=== PATIENT | male | born 1950 | race Caucasian/White ===

== ENCOUNTER → 2016-08-26 | Outpatient (CLI) | payer BC ==
[~2016-08-26] MED LIST: ATOR-22 PO; FINA5TAB PO; METO100T44 PO; MULT-599 PO
[2016-08-26 12:33] LABS: BASO % 0.8 %; BASO ABS # 0.06 K/uL (0-0.2); COMPLETE YES; EOS % 2.6 %; IG% 0.1 %; LYMPH ABS # 1.75 K/uL (1.2-3.4); MEAN CELL VOLUME 97.6 fL (80-100); MEAN CORPUSCULAR HEMOGLOBIN 33.2 pg (25-34); MEAN PLATELET VOLUME 11.4 fL (7.4-10.4); MONO % 7.8 %; NEUT % 65.7 %; PLATELET COUNT 172 K/uL (130-400); RED BLOOD COUNT 5.33 M/uL (4.7-6.1)
[2016-08-26 15:05] LABS: ALB/GLOB RATIO 1.4 (0.9-2); ALKALINE PHOSPHATASE 91 U/L (45-117); ALT/SGPT 29 U/L (12-78); AST/SGOT 15 U/L (15-37); BLOOD UREA NITROGEN 20 mg/dl (7-18); BUN/CREATININE RATIO 16.8 (10-20); CALCIUM 9.1 mg/dl (8.5-10.1); CARBON DIOXIDE 27 mmol/L (21-32); CHLORIDE 109 mmol/L (98-107); GLUCOSE 105 mg/dl (70-99); HDL CHOLESTEROL 50 mg/dl; POTASSIUM 4.4 mmol/L (3.5-5.1); SODIUM 143 mmol/L (136-145)
[2016-08-26 15:06] LABS: CHOLESTEROL 121 mg/dl (0-200); CHOLESTEROL/HDL RATIO 2.4; LDL CHOLESTEROL CALCULATED 57 mg/dl; TRIGLYCERIDES 69 mg/dl (0-150); VERY LOW DENSITY LIPOPROT CALC 14 mg/dl
== END | disposition home or self-care (01) ==
LOC: C.LABPBG 09:05
PROVIDERS: ATTEND Nurse Practitioner Family
DX: I25.10 Atherosclerotic heart disease of native coronary artery without angina pectoris (principal); E78.00 Pure hypercholesterolemia, unspecified; I10 Essential (primary) hypertension

== ENCOUNTER → 2017-02-28 | Outpatient (CLI) | payer BC ==
[~2017-02-28] MED LIST changes: -METO100T44 PO; +METO1TAB69 PO
[2017-02-28 13:22] LABS: CHOLESTEROL/HDL RATIO 2.4
[2017-02-28 13:24] LABS: ALT/SGPT 33 U/L (12-78); AST/SGOT 19 U/L (15-37)
== END | disposition home or self-care (01) ==
LOC: C.LABPBG 08:25
PROVIDERS: ATTEND Internal Medicine Cardiovascular Disease
DX: E78.00 Pure hypercholesterolemia, unspecified (principal)

== ENCOUNTER → 2017-09-02 | Outpatient (CLI) | payer BC ==
[~2017-09-02] MED LIST changes: +METO100T44 PO; -METO1TAB69 PO
[2017-09-02 14:07] LABS: ALBUMIN 3.6 gm/dl (3.4-5.0); ALT/SGPT 33 U/L (12-78); AST/SGOT 18 U/L (15-37); BLOOD UREA NITROGEN 17 mg/dl (7-18); CARBON DIOXIDE 30 mmol/L (21-32); CHOLESTEROL 118 mg/dl (0-200); CREATININE 1.15 mg/dl (0.60-1.40); GLUCOSE 111 mg/dl (70-99); POTASSIUM 4.4 mmol/L (3.5-5.1); SODIUM 138 mmol/L (136-145)
[2017-09-02 14:10] LABS: ALKALINE PHOSPHATASE 119 U/L (45-117); LDL CHOLESTEROL CALCULATED 74 mg/dl; TOTAL PROTEIN 7.4 gm/dl (6.4-8.2)
== END | disposition home or self-care (01) ==
LOC: C.LABPBG 08:09
PROVIDERS: ATTEND Internal Medicine Cardiovascular Disease
DX: E78.00 Pure hypercholesterolemia, unspecified (principal); I10 Essential (primary) hypertension; I25.10 Atherosclerotic heart disease of native coronary artery without angina pectoris

== ENCOUNTER 2019-12-03 00:39 | Inpatient (IN) ==
[2019-12-03] MEDS ORDERED: fentaNYL citrate 100 MCG/2 ML VIAL IV PRN (00:48)
[2019-12-03] MEDS ORDERED: TICAGRELOR 90 MG TAB PO ONE (00:48)
--- NOTE | 2019-12-03 00:52 | Emergency Department Note ---
History of Present Illness General Chief complaint: Chest Pain Stated complaint: Chest Pain Source: patient Mode of arrival: EMS Limitations: no limitations History of Present Illness Provider complaint: chest pain Onset (ago): hour(s) (1.5) Location: chest Radiation: extremity Severity: moderate Pain Consistency: + constant Quality: + constant Relieved By: + none Associated symptoms: + diaphoresis, + loss of appetite and + nausea/vomiting Treatments prior to arrival: aspirin and other (nitro spray x3) This is a 69-year-old male who presents from home via EMS due to complaints of chest pain. Patient states pain began in the center of his chest and radiated into his left arm. Patient states this began approximately an hour and a half ago while he was watching TV and getting ready for bed. Patient states he felt fine earlier in the day. Patient denies any recent illness or known sick contacts. Patient denies any accompanying chest pain. States he did break out in a sweat, and was slightly nauseated but did not vomit. Patient states pain feels similar to approximately 18 years ago when he had a heart attack. Patient states at that time one stent was placed. Patient states he follows with Dr. Connolly. Patient states there is been no recent change in his medications. He does use aspirin, no Plavix. Patient denies any change in bowel or bladder function. EMS did call in route to discuss very slight abnormalities that were noted on EKG given his concerning story. These were not enough to warrant a prehospital Heart Alert. A repeat EKG was done immediately on arrival and showed worsening changes compared to the prehospital EKG, and at that time a heart alert was activated. Patient had received aspirin as well as 3 sprays of nitro prehospital. He maintained stable vital signs. Pt seen during a time of high acuity and national emergency pandemic while wearing PPE. Home Medications Home Medications Medication Instructions Recorded Confirmed Type multivitamin 1 tab PO DAILY 11/03/18 12/03/19 History aspirin 81 mg tablet 81 mg PO DAILY tab 02/23/19 12/03/19 History metoprolol succinate 100 mg 100 mg PO BID #180 tab 03/17/19 12/03/19 Rx tablet,extended release 24 hr atorvastatin 20 mg tablet 20 mg PO DAILY #90 tab 04/15/19 12/03/19 Rx Allergies Allergy/AdvReac Type Severity Reaction Status Date / Time No Known Allergies Allergy Unverified 12/03/19 01:00 Past Med/Surg History Medical History (Updated 12/03/19 @ 04:56 by Ara Isaac DO) Benign prostatic hyperplasia with urinary obstruction (Chronic) Bladder calculi (Chronic) BPH (benign prostatic hypertrophy) (Chronic) CAD (coronary artery disease) (Chronic) HTN (hypertension) (Chronic) Hypercholesterolemia (Chronic) UTI (urinary tract infection) (Resolved) Surgical History (Updated 11/10/18 @ 09:59 by JIMENA Browning III) History of hernia repair Family History (Updated 11/03/18 @ 09:06 by Darin Borges) Denies family history of Ovarian cancer Prostate cancer Myocardial infarction Breast cancer Colorectal cancer Social History (Updated 11/10/18 @ 09:55 by Amanda Bobo) Smoking Status: Current every day smoker Tobacco Type: Cigars Do You Dip or Chew Tobacco: No; Tobacco Cessation Education Requested by Patient: No Hx Alcohol Use: Yes Alcohol type: beer, wine and hard liquor Hx Substance Use: No Preferred Language: Serbian Communication Ability: Effective Beliefs That Will Affect Care: None marital status: Current Living Situation: Spouse current occupational status: employed and retired current occupation: [employer] Other Information That Helps Us Care for You: No Feels Safe at Home: Yes Safety Concerns: Feels Safe At This Time Dental Care, Regularly: No Physical Activity Frequency: Does not Exercise Review of Systems See HPI for pertinent positives & negatives. and A total of 10 systems reviewed and were otherwise negative Physical Exam Vital Signs Vital Signs - 24 hr 12/03/19 00:40 12/03/19 00:44 12/03/19 00:48 Temperature 36.6 C Temperature Source Oral Pulse Rate 66 65 Pulse Rate from SpO2 Sensor 68 Pulse Rhythm Regular Pulse Strength Normal Respiratory Rate 25 H Respiratory Effort / Characteristics Non-Labored Respiratory Depth Normal Respiratory Pattern Regular Blood Pressure 143/87 H 143/87 H Blood Pressure Mean 105 104 Pulse Oximetry 92 91 90 Oxygen Delivery Method Room Air Room Air Oxygen Flow Rate Sepsis Recent Fever Within 48 Hours No Sepsis New/Unexplained Change in Mental Status N/A Sepsis Action Taken by Nursing No Action Required 12/03/19 00:58 12/03/19 01:00 12/03/19 01:12 Temperature Temperature Source Pulse Rate 74 69 Pulse Rate from SpO2 Sensor 74 68 Pulse Rhythm Pulse Strength Respiratory Rate Respiratory Effort / Characteristics Respiratory Depth Respiratory Pattern Blood Pressure 154/90 H 152/86 H Blood Pressure Mean 117 118 Pulse Oximetry 92 89 L Oxygen Delivery Method Nasal Cannula Nasal Cannula Room Air Oxygen Flow Rate 5 5 Sepsis Recent Fever Within 48 Hours Sepsis New/Unexplained Change in Mental Status Sepsis Action Taken by Nursing GENERAL: alert, well appearing, well nourished, no distress, non-toxic, diaphoretic EYE EXAM: normal conjunctiva, PERRL and EOM's grossly intact OROPHARYNX: no exudate, no erythema, lips, buccal mucosa, and tongue normal and mucous membranes are moist NECK: supple, no nuchal rigidity, no adenopathy, non-tender LUNGS: Clear to auscultation. Normal chest wall mechanics, no w/r/r HEART: no murmurs, S1 normal and S2 normal ABDOMEN: abdomen soft, non-tender, normo-active bowel sounds, no masses, no rebound or guarding. BACK: Back is symmetrical on inspection and there is no deformity, no midline tenderness, no CVA tenderness. SKIN: no rashes and no bruising, no petechiae UPPER EXTREMITIES: upper extremities are grossly normal. FROM, nml pulses b/l. No edema, no evidence of trauma. LOWER EXTREMITIES: No pitting edema. FROM, nml pulses b/l. NEURO EXAM: Normal sensorium, cranial nerves II-XII grossly intact, normal speech, no gross weakness of arms, no gross weakness of legs. Gross sensation intact. Course Course 0043: EKG now with clear STEMI - heart alert activated. 0057: Pt still having pain after fentanyl. Will add nitro drip. 0105: Dr. Mendenhall at bedside. Administered Medications Discontinued Medications Fentanyl Citrate (Fentanyl Citrate) 100 mcg IV Q15M PRN PRN Reason: Pain Stop: 12/17/19 00:47 Last Admin: 12/03/19 00:53 Dose: 100 mcg Documented by: [id number] Fentanyl Citrate (Fentanyl Citrate) Confirm Administered Dose 100 mcg .ROUTE .STK-MED ONE Stop: 12/03/19 01:07 Last Admin: 12/03/19 01:59 Dose: 50 mcg Documented by: [id number] Furosemide (Lasix) Confirm Administered Dose 40 mg IV .STK-MED ONE Stop: 12/03/19 01:57 Last Admin: 12/03/19 02:04 Dose: 40 mg Documented by: [id number] Heparin Sodium (Porcine) (Heparin Iv Bolus ([employer] Use Only)) Confirm Administered Dose 10,000 units .ROUTE .STK-MED ONE Stop: 12/03/19 01:07 Last Admin: 12/03/19 01:47 Dose: 10,000 units Documented by: [id number] Heparin Sodium (Porcine) (Heparin Iv Bolus ([employer] Use Only)) Confirm Administered Dose 10,000 units .ROUTE .STK-MED ONE Stop: 12/03/19 01:46 Last Admin: 12/03/19 02:00 Dose: 1,000 units Documented by: [id number] Heparin Sodium/Sodium Chloride (Heparin/Nss 1000 Unit/500ml Flush Bag) Confirm Administered Dose 3,000 units IV .STK-MED ONE Stop: 12/03/19 01:07 Last Admin: 12/03/19 01:46 Dose: 3,000 units Documented by: [id number] Nitroglycerin/Dextrose (Nitroglycerin/D5w 100 Mcg/Ml) 250 mls @ 3 mls/hr IV .Q24H EMORY; Protocol Stop: 01/02/20 00:59 Last Admin: 12/03/19 01:02 Dose: 5 mcg/min, 3 mls/hr Documented by: [id number] Cosigned by: [id number] Midazolam HCl (Versed) Confirm Administered Dose 2 mg .ROUTE .STK-MED ONE Stop: 12/03/19 01:07 Last Admin: 12/03/19 02:00 Dose: 1 mg Documented by: [id number] Miscellaneous () 1 ea N/A NOW STA Stop: 12/03/19 00:59 Last Admin: 12/03/19 02:43 Dose: Not Given Documented by: [id number] Morphine Sulfate (Morphine Sulfate) Confirm Administered Dose 4 mg .ROUTE .STK-MED ONE Stop: 12/03/19 02:30 Last Admin: 12/03/19 02:31 Dose: 4 mg Documented by: [id number] Nicardipine HCl (Cardene) Confirm Administered Dose 25 mg .ROUTE .STK-MED ONE Stop: 12/03/19 01:07 Last Admin: 12/03/19 01:46 Dose: 25 mg Documented by: [id number] Nitroglycerin/Dextrose (Nitroglycerin/D5w 100 Mcg/Ml 20ml Syringe) Confirm Administered Dose 2,000 mcg .ROUTE .STK-MED ONE Stop: 12/03/19 01:07 Last Admin: 12/03/19 01:47 Dose: 2,000 mcg Documented by: [id number] Ondansetron HCl (Zofran) 4 mg IV NOW STA Stop: 12/03/19 00:54 Last Admin: 12/03/19 00:59 Dose: 4 mg Documented by: [id number] Ticagrelor (Brilinta) 180 mg PO ONE ONE Stop: 12/03/19 00:49 Last Admin: 12/03/19 00:52 Dose: 180 mg Documented by: [id number] Critical Care Time Critical Care Time: Yes Total Critical Care Time: 38 Critical care of 38 min performed to assess and manage high likelihood of life- threatening ACS, involving labs/imaging/medication performed with assessment to evaluate ACS diagnosis with frequent reassessment. This time includes bedside time, treatment discussions with patient/family/consultants, documentation time and excludes procedure time. Medical Decision Making Differential Diagnosis Differential diagnoses includes but is not limited to acute coronary syndrome, myocardial infarction, pericarditis, pulmonary embolus, aortic dissection, pneumonia, pneumothorax, musculoskeletal, shingles, esophageal. Medical Records Attestation: I reviewed the patient's medical records. Home Medications Current Medication List: was personally reviewed by me Laboratory Data Attestation: I reviewed the patient's lab results. Result diagrams: 12/03/19 00:49 12/03/19 00:49 Lab Results 12/03/19 12/03/19 12/03/19 Range/Units 00:49 00:49 00:49 WBC 8.30 (4.8-10.8) K/uL RBC 4.89 (4.7-6.1) M/uL Hgb 16.4 (14.0-18.0) g/dL POC Hgb (14.0-18.0) g/dl Hct 45.9 (42-52) % POC Hct (42-52) % MCV 93.9 (80-100) fL MCH 33.5 (25-34) pg MCHC 35.7 (32-36) g/dL RDW Std Deviation 46.4 H (36.4-46.3) fL RDW Coeff of Markell 13.4 (11.5-14.5) % Plt Count 140 (130-400) K/uL MPV 10.9 H (7.4-10.4) fL Immature Gran % (Auto) 0.1 % Neut % (Auto) 58.8 % Lymph % (Auto) 27.1 % [place] % (Auto) 9.9 % Eos % (Auto) 3.7 % Baso % (Auto) 0.4 % Neut # (Auto) 4.88 (1.4-6.5) K/uL Lymph # (Auto) 2.25 (1.2-3.4) K/uL [place] # (Auto) 0.82 H (0.11-0.59) K/uL Eos # (Auto) 0.31 (0-0.5) K/uL Baso # (Auto) 0.03 (0-0.2) K/uL Immature Gran # (Auto) 0.01 (0.00-0.02) K/uL PT 10.5 (9.0-12.0) Seconds INR 1.0 (0.9-1.1) APTT 24.2 (21.0-31.0) Seconds PTT Ratio 0.9 Activ Coag Time Kaolin (94-140) SECONDS POC pH (7.35-7.45) POC pCO2 (35-46) mmHg POC pO2 (80-95) mmHg POC HCO3 (19-24) harpal/L POC Base Excess (-9-1.8) harpal/L POC ABG O2 Sat (90-95) % POC Sodium (135-144) mmol/L Sodium 145 (136-145) mmol/L POC Potassium (3.3-5.0) mmol/L Potassium 4.0 (3.5-5.1) mmol/L POC Chloride (101-112) mmol/L Chloride 114 H (98-107) mmol/L Carbon Dioxide 25 (21-32) mmol/L POC Total CO2 (24-31) mmol/L Anion Gap 6.0 (3-11) POC Anion Gap (16-25) mmol/L POC BUN (7-18) mg/dl BUN 21 H (7-18) mg/dl Creatinine 1.21 (0.6-1.4) mg/dl POC Creatinine (0.6-1.3) mg/dl Est Cr Clr Drug Dosing 68.7 ml/min Est GFR ( Amer) 69.4 Est GFR (Non-Af Amer) 59.9 BUN/Creatinine Ratio 17.4 (10-20) Glucose 144 H (70-99) mg/dl POC Glucose (other) (70-99) mg/dl Calcium 8.8 (8.5-10.1) mg/dl POC Ioniz Calcium Beatriz (1.12-1.32) mmol/l Magnesium 2.4 (1.8-2.4) mg/dl Total Bilirubin 0.4 (0.2-1) mg/dl AST 13 L (15-37) U/L ALT 25 (12-78) U/L Alkaline Phosphatase 73 (45-117) U/L Total Creatine Kinase 56 (39-308) U/L CK-MB (CK-2) < 1.0 (0.5-3.6) ng/ml CK/CKMB % Calc TNP POC Troponin I (0-0.045) ng/ml Troponin I 0.037 (0-0.045) ng/ml Total Protein 7.0 (6.4-8.2) gm/dl Albumin 3.9 (3.4-5.0) gm/dl Globulin 3.1 (2.5-4.0) gm/dl Albumin/Globulin Ratio 1.3 (0.9-2) Lipase 76 (73-393) U/L TSH 2.310 (0.300-4.500) uIu/ml 12/03/19 12/03/19 12/03/19 Range/Units 00:50 00:53 01:41 WBC (4.8-10.8) K/uL RBC (4.7-6.1) M/uL Hgb (14.0-18.0) g/dL POC Hgb 15.6 (14.0-18.0) g/dl Hct (42-52) % POC Hct 46 (42-52) % MCV (80-100) fL MCH (25-34) pg MCHC (32-36) g/dL RDW Std Deviation (36.4-46.3) fL RDW Coeff of Markell (11.5-14.5) % Plt Count (130-400) K/uL MPV (7.4-10.4) fL Immature Gran % (Auto) % Neut % (Auto) % Lymph % (Auto) % [place] % (Auto) % Eos % (Auto) % Baso % (Auto) % Neut # (Auto) (1.4-6.5) K/uL Lymph # (Auto) (1.2-3.4) K/uL [place] # (Auto) (0.11-0.59) K/uL Eos # (Auto) (0-0.5) K/uL Baso # (Auto) (0-0.2) K/uL Immature Gran # (Auto) (0.00-0.02) K/uL PT (9.0-12.0) Seconds INR (0.9-1.1) APTT (21.0-31.0) Seconds PTT Ratio Activ Coag Time Kaolin 241 H (94-140) SECONDS POC pH (7.35-7.45) POC pCO2 (35-46) mmHg POC pO2 (80-95) mmHg POC HCO3 (19-24) harpal/L POC Base Excess (-9-1.8) harpal/L POC ABG O2 Sat (90-95) % POC Sodium 143 (135-144) mmol/L Sodium (136-145) mmol/L POC Potassium 4.0 (3.3-5.0) mmol/L Potassium (3.5-5.1) mmol/L POC Chloride 107 (101-112) mmol/L Chloride (98-107) mmol/L Carbon Dioxide (21-32) mmol/L POC Total CO2 22 L (24-31) mmol/L Anion Gap (3-11) POC Anion Gap 19.0 (16-25) mmol/L POC BUN 21 H (7-18) mg/dl BUN (7-18) mg/dl Creatinine (0.6-1.4) mg/dl POC Creatinine 1.1 (0.6-1.3) mg/dl Est Cr Clr Drug Dosing ml/min Est GFR ( Amer) Est GFR (Non-Af Amer) BUN/Creatinine Ratio (10-20) Glucose (70-99) mg/dl POC Glucose (other) 144 H (70-99) mg/dl Calcium (8.5-10.1) mg/dl POC Ioniz Calcium Beatriz 1.15 (1.12-1.32) mmol/l Magnesium (1.8-2.4) mg/dl Total Bilirubin (0.2-1) mg/dl AST (15-37) U/L ALT (12-78) U/L Alkaline Phosphatase (45-117) U/L Total Creatine Kinase (39-308) U/L CK-MB (CK-2) (0.5-3.6) ng/ml CK/CKMB % Calc POC Troponin I < 0.03 (0-0.045) ng/ml Troponin I (0-0.045) ng/ml Total Protein (6.4-8.2) gm/dl Albumin (3.4-5.0) gm/dl Globulin (2.5-4.0) gm/dl Albumin/Globulin Ratio (0.9-2) Lipase (73-393) U/L TSH (0.300-4.500) uIu/ml 12/03/19 12/03/19 Range/Units 01:47 01:59 WBC (4.8-10.8) K/uL RBC (4.7-6.1) M/uL Hgb (14.0-18.0) g/dL POC Hgb 15.3 (14.0-18.0) g/dl Hct (42-52) % POC Hct 45 (42-52) % MCV (80-100) fL MCH (25-34) pg MCHC (32-36) g/dL RDW Std Deviation (36.4-46.3) fL RDW Coeff of Markell (11.5-14.5) % Plt Count (130-400) K/uL MPV (7.4-10.4) fL Immature Gran % (Auto) % Neut % (Auto) % Lymph % (Auto) % [place] % (Auto) % Eos % (Auto) % Baso % (Auto) % Neut # (Auto) (1.4-6.5) K/uL Lymph # (Auto) (1.2-3.4) K/uL [place] # (Auto) (0.11-0.59) K/uL Eos # (Auto) (0-0.5) K/uL Baso # (Auto) (0-0.2) K/uL Immature Gran # (Auto) (0.00-0.02) K/uL PT (9.0-12.0) Seconds INR (0.9-1.1) APTT (21.0-31.0) Seconds PTT Ratio Activ Coag Time Kaolin 263 H (94-140) SECONDS POC pH 7.33 L (7.35-7.45) POC pCO2 45 (35-46) mmHg POC pO2 55 L (80-95) mmHg POC HCO3 24 (19-24) harpal/L POC Base Excess -2.0 (-9-1.8) harpal/L POC ABG O2 Sat 86.0 L (90-95) % POC Sodium 140 (135-144) mmol/L Sodium (136-145) mmol/L POC Potassium 4.1 (3.3-5.0) mmol/L Potassium (3.5-5.1) mmol/L POC Chloride (101-112) mmol/L Chloride (98-107) mmol/L Carbon Dioxide (21-32) mmol/L POC Total CO2 25 (24-31) mmol/L Anion Gap (3-11) POC Anion Gap (16-25) mmol/L POC BUN (7-18) mg/dl BUN (7-18) mg/dl Creatinine (0.6-1.4) mg/dl POC Creatinine (0.6-1.3) mg/dl Est Cr Clr Drug Dosing ml/min Est GFR ( Amer) Est GFR (Non-Af Amer) BUN/Creatinine Ratio (10-20) Glucose (70-99) mg/dl POC Glucose (other) (70-99) mg/dl Calcium (8.5-10.1) mg/dl POC Ioniz Calcium Beatriz (1.12-1.32) mmol/l Magnesium (1.8-2.4) mg/dl Total Bilirubin (0.2-1) mg/dl AST (15-37) U/L ALT (12-78) U/L Alkaline Phosphatase (45-117) U/L Total Creatine Kinase (39-308) U/L CK-MB (CK-2) (0.5-3.6) ng/ml CK/CKMB % Calc POC Troponin I (0-0.045) ng/ml Troponin I (0-0.045) ng/ml Total Protein (6.4-8.2) gm/dl Albumin (3.4-5.0) gm/dl Globulin (2.5-4.0) gm/dl Albumin/Globulin Ratio (0.9-2) Lipase (73-393) U/L TSH (0.300-4.500) uIu/ml Imaging Data My Impression: X-ray: I interpreted the following studies. Chest: A single view study of the chest was reviewed and was negative for cardiomegaly, focal infiltrate, effusion, pulmonary edema, or wide mediastinum. ECG Data Attestation: I personally reviewed and interpreted this ECG as follows: Indication: + chest pain Rate (beats per minute): 66 Rhythm: + normal sinus ECG Intervals/blocks: + Normal QRS and + Normal QT ECG [place]: + Normal ECG ST segments: + ST elevation (V2-4) and + T-wave inversions (aVL) Comparison ECG Date: from (2015) Change: the following changes noted Additional Comments: new ST elevation Blood Pressure Blood Pressure Findings: Elevated blood pressure Blood Pressure Disposition: further management by hospitalist MDM Narrative Patient brought in with concerning story for possible ACS, and slightly abnormal chest x-ray prehospital. Repeat EKG in the EKG showed clear ST elevation [place]. A heart alert was activated. Patient had already had aspirin 324 and 3 sprays of nitro prehospital. Patient stated the pain was improved but was not gone. Patient's chest x-ray was reassuring, no wide mediastinum suggesting a dissection, no evidence of pneumonia, or pulmonary edema. Labs were drawn and sent, patient given fentanyl, however had no improvement of pain. Patient still mildly hypertensive and due to persistent pain patient started on nitro drip. Brilinta was added. A [id number] Chem-8 was reassuring, other labs were sent and were pending at the time of the arrival of the pharmacy billing adjudicator Dr. Mendenhall. Patient remained hemodynamically on the emergency room, mentating normally, continue to rate the chest pain as 4 out of 10 with radiation into the left upper extremity. Patient denies shortness of breath. Patient's oxygen saturations were around 90%, likely due to his underlying COPD and continued tobacco abuse. Patient was placed on 2 L via nasal cannula. An order was placed for continuous cardiac monitoring. The monitor shows a rate of 90 with normal sinus rhythm. Impression & Plan ST elevation myocardial infarction (STEMI), Chest pain, HTN (hypertension), Tobacco use Discharge Plan Visit Data *Final* Discharge Date/Time: 12/03/19 01:12 Chief Complaint: Chest Pain Stated Complaint: Chest Pain ED Provider: Ara Isaac Discharge Problem: ST elevation myocardial infarction (STEMI), Chest pain, HTN (hypertension), Tobacco use Patient Disposition: Still a Patient Discharge Instructions Interventions: ED Discharge Assessment Last Done: 12/03/19 01:12 Discharge Problem: ST elevation myocardial infarction (STEMI) Qualifiers: Involved coronary artery: unspecified coronary artery Qualified Code(s): I21.3 - ST elevation (STEMI) myocardial infarction of unspecified site Chest pain Qualifiers: Chest pain type: chest pain due to myocardial ischemia Ischemic chest pain type: unstable angina pectoris Qualified Code(s): I20.0 - Unstable angina HTN (hypertension) Qualifiers: Hypertension type: essential hypertension Qualified Code(s): I10 - Essential (primary) hypertension
[2019-12-03] MEDS ORDERED: ONDANSETRON INJ 2 MG/ML 2 ML VIAL IV STA (00:53)
[2019-12-03] MEDS ORDERED: STAT IV Infusion **Titration per Protocol STA (00:58)
[2019-12-03 00:59] LABS: Basophils # (auto) 0.03 K/uL (0-0.2); Basophils % (auto) 0.4 %; Eosinophils # (auto) 0.31 K/uL (0-0.5); Eosinophils % (auto) 3.7 %; Hematocrit (blood only) 45.9 % (42-52); Hemoglobin 16.4 g/dL (14.0-18.0); Immature Granulocytes # (auto) 0.01 K/uL (0.00-0.02); Immature Granulocytes % (auto) 0.1 %; Lymphocytes # (auto) 2.25 K/uL (1.2-3.4); Lymphocytes % (auto) 27.1 %; Mean Corpuscular Hemoglobin 33.5 pg (25-34); Mean Corpuscular Hgb Conc 35.7 g/dL (32-36); Mean Corpuscular Volume 93.9 fL (80-100); Mean Platelet Volume 10.9 fL (7.4-10.4); Monocytes # (auto) 0.82 K/uL (0.11-0.59); Monocytes % (auto) 9.9 %; Neutrophils # (auto) 4.88 K/uL (1.4-6.5); Neutrophils % (auto) 58.8 %; Platelet Count 140 K/uL (130-400); RDW Coefficient of Variation 13.4 % (11.5-14.5); RDW Standard Deviation 46.4 fL (36.4-46.3); Red Blood Count 4.89 M/uL (4.7-6.1)
[2019-12-03] MEDS ORDERED: NITROGLYCERIN/D5W 100MCG/ML 250 ML IV SCH (01:00)
[2019-12-03 01:05] LABS: iSTAT Creatinine 1.1 mg/dl (0.6-1.3); iSTAT Hemoglobin 15.6 g/dl (14.0-18.0); iSTAT Ionized Calcium 1.15 mmol/l (1.12-1.32)
[2019-12-03] MEDS ORDERED: NiCARDipine HCL INJ 2.5 MG/ML 10 ML AMP ONE (01:06)
[2019-12-03] MEDS ORDERED: HEPARIN (PORCINE) 1000 UNIT/ML 10 ML (CATH LAB USE ONLY) ONE ×2 (01:06→01:45)
[2019-12-03] MEDS ORDERED: NITROGLYCERIN/D5W 100MCG/ML 20ML SYR ONE (01:06)
[2019-12-03] MEDS ORDERED: fentaNYL citrate 100 MCG/2 ML VIAL ONE (01:06)
[2019-12-03] MEDS ORDERED: MIDAZOLAM HCL 1 MG/ML 2ML VIAL ONE (01:06)
[2019-12-03 01:10] LABS: Partial Thromboplastin Ratio 0.9; Partial Thromboplastin Time 24.2 Seconds (21.0-31.0); Prothrombin Time 10.5 Seconds (9.0-12.0)
--- NOTE | 2019-12-03 01:16 | Pre Anesthesia Assessment ---
Date of Service December 03, 2019 Pre Sedation Assessment Vital Signs Temp Pulse Resp BP Pulse Ox 12/03/19 01:00 69 152/86 H 89 L 12/03/19 00:58 74 154/90 H 92 12/03/19 00:48 90 12/03/19 00:44 65 143/87 H 91 12/03/19 00:40 97.9 F 66 25 H 143/87 H 92 Cardiovascular RRR, no murmur, no edema Respiratory normal respiratory effort, lungs clear to auscultation Pre-Sedation Airway Assessment Smoking Status: Current every day smoker Hx Sleep Apnea: No Hx Difficult Intubation: No Short, Thick Neck: No Thyromental Distance: > or= 3.5 Finger Breadths Oral Cavity: + WNL Mallampati Class: III ASA: ASA3 Procedure Planning Contraindications for Sedation: none Current Medications Reviewed: Yes Notes The planned sedation has been discussed with the patient. Informed Consent was obtained. I have identified the patient, determined the appropriateness of sedation and have assessed the patient immediately prior to the procedure. All medicine(s) and interventions are by my order.
[2019-12-03 01:18] LABS: Alanine Aminotransferase 25 U/L (12-78); Albumin Level 3.9 gm/dl (3.4-5.0); Aspartate Aminotransferase 13 U/L (15-37); BUN Creatinine Ratio 17.4 (10-20); Blood Urea Nitrogen 21 mg/dl (7-18); Calcium 8.8 mg/dl (8.5-10.1); Carbon Dioxide 25 mmol/L (21-32); Chloride 114 mmol/L (98-107); Creatinine Clr Calc Pharmacy 68.7 ml/min; Est GFR (African American) 69.4; Est GFR (Non-African American) 59.9; Glucose 144 mg/dl (70-99); Lipase 76 U/L (73-393); Magnesium 2.4 mg/dl (1.8-2.4); Sodium 145 mmol/L (136-145)
--- NOTE | 2019-12-03 01:19 | Cardiology Consultation ---
Date of Consultation December 03, 2019 Assessment & Plan (1) Acute AK: Presentation consistent with anterior STEMI and recommend proceeding with emergent cardiac catheterization and likely primary PCI. No apparent contraindications to procedure. Discussed risks, benefits, alternatives of procedure with patient and they are willing to proceed. Given ticagrelor 180 mg in the ED. Further recommendations pending findings of coronary angiography. History of Present Illness History of Present Illness 69-year-old man here with acute chest pain and ECG concerning for acute AK. Patient seen emergently in the ED after heart alert activated upon arrival. Past cardiac history remarkable for coronary artery disease with prior AK and stent placed to his LAD in 2003. Cardiac risk factors include hypertension, dyslipidemia, ongoing tobacco abuse. Other medical issues include BPH. Chest pain began approximately 11:30 PM, about 1 hour before arrival, while going upstairs to go to bed. Describes substernal chest pain radiating down his left arm with associated diaphoresis. Pain similar to what he experienced with his prior AK Pain on arrival 10 out of 10. Hemodynamically stable. EKG showed sinus rhythm with anterior ST elevations in V2 through V4. Continued pain after fentanyl and placed on nitroglycerin infusion. Allergies Allergy/AdvReac Type Severity Reaction Status Date / Time No Known Allergies Allergy Unverified 12/03/19 01:00 Home Medications Home Medications Medication Instructions Recorded Confirmed Type multivitamin 1 tab PO DAILY 11/03/18 12/03/19 History aspirin 81 mg tablet 81 mg PO DAILY tab 02/23/19 12/03/19 History metoprolol succinate 100 mg 100 mg PO BID #180 tab 03/17/19 12/03/19 Rx tablet,extended release 24 hr atorvastatin 20 mg tablet 20 mg PO DAILY #90 tab 04/15/19 12/03/19 Rx Patient History Medical History (Updated 12/03/19 @ 01:17 by James Mnedenhall MD) Benign prostatic hyperplasia with urinary obstruction (Chronic) Bladder calculi (Chronic) BPH (benign prostatic hypertrophy) (Chronic) CAD (coronary artery disease) (Chronic) HTN (hypertension) (Chronic) Hypercholesterolemia (Chronic) UTI (urinary tract infection) (Resolved) Surgical History (Updated 11/10/18 @ 09:59 by JIMENA Browning III) History of hernia repair Family History (Updated 11/03/18 @ 09:06 by Darin Borges) Denies family history of Ovarian cancer Prostate cancer Myocardial infarction Breast cancer Colorectal cancer Social History (Updated 11/10/18 @ 09:55 by Amanda Bobo) Smoking Status: Current every day smoker Tobacco Type: Cigars Hx Alcohol Use: Yes Alcohol type: beer Hx Substance Use: No Preferred Language: Hebrew marital status: Current Living Situation: Spouse current occupational status: employed and retired 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 Abdomen: Soft, nontender, nondistended, positive bowel sounds. Extremities: Warm, well perfused, no edema. 2+ radial pulses Skin: No rashes or lesions. Neuro: Nonfocal Psych: Alert orient x3, normal affect and mood Results & Data ([facility]) Vital Signs (Past 12 Hours) Vital Signs Temp Pulse Resp BP Pulse Ox 12/03/19 01:00 69 152/86 H 89 L 12/03/19 00:58 74 154/90 H 92 12/03/19 00:48 90 12/03/19 00:44 65 143/87 H 91 12/03/19 00:40 97.9 F 66 25 H 143/87 H 92 PG Care Time/CCT Total # of Minutes Spent Total Time Spent with Patient: Total time spent is greater than 50% in coordination of care (as documented) at patient's floor/unit and/or counseling patient: Coding Level of Care Code 48012 Initial Inpt Care Lvl 3 Diagnoses Acute AK I21.9
--- NOTE | 2019-12-03 01:22 | Cardiac Catheterization ---
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 Cardiac Status Clinical evaluation leading to the procedure CAD Presenation: STEMI Anginal Classification: CCS IV Heart Failure: NYHA Class: CCS III Cardiogenic Shock within 24 Hours: No Imaging Studies Past 6 Months: No Stress Studies Past 6 Months: No Diagnostic Physicians Name: Jeremy Mendenhall MD Status: Emergency Closure Device Percutaneous Entry Location: Radial Closure Device: Radial Band Recommendations: PCI without planned CABG PCI Indication: Immediate PCI for STEMI First Noted: First EKG Lesion Segment Name: Proximal LAD Culprit Artery: Yes Stenosis Prior to Rx (%): 100 Chronic Total Occlusion: No IVUS: No FFR: No Pre-Procedure SADA Flow: 0 Previously Treated Lesion: Timeframe: greater than 2 years Treated with Stent: Yes In-Stent Thrombosis: Yes Stent Type: Type Unknown Yes Lesion Complexity: Non-High/Non-C Thrombus Present: Yes Bifurcation Lesion: No Guidewire Across Lesion: Stenosis Post-Procedure (%): 0 Post-Procedure SADA Flow: 3 Devices(s) Deployed: Yes Yes Intraprocedure Events Significant Disection: No Perforation: No Cardiac Cath Procedure Full Procedure Date December 03, 2019 Pre-Procedure Diagnosis Pre-Procedure Diagnosis: STEMI AUC Score AUC Score: 9 Post-Procedure Diagnosis Post-Procedure Diagnosis: Severe CAD, Successful PCI and Elevated Intracardiac Pressures Procedure(s) Performed Procedure(s) Performed: Coronary Angiography, Left Heart Cath and Drug Eluting Stent Law Office Receptionist Jeremy Mendenhall MD Hoist Cylinder Loader(s) Devaughn Estimated Blood Loss Estimated Blood Loss: 15 Medication(s) Medication(s): Fentanyl, Heparin, Lidocaine 1%, Nicardipine, Nitroglycerin and Versed Medication(s): Ticagrelor Summary of Findings Indication: STEMI/Heart Alert Access: 6 Fr right radial artery Catheters: EBU 3.5 guide, diagnostic JR4 Findings: LM -large caliber, luminal irregularity LAD -medium caliber vessel, 100% acute occlusion involving distal and of prior stent. Circumflex -dominant, large caliber vessel, large OM 2 with luminal irregularities, left PDA without significant disease. RCA -nondominant, medium caliber, luminal irregularities LVEDP -31 -- PCI -- Antithrombotic therapy: Heparin, ticagrelor Procedure: Left main cannulated with EBU 3.5 guide BMW wire passed across lesion into distal vessel Proximal LAD lesion predilated with 2.5 compliant balloon Dilated lesion stented with 3.5 x 22 mm maria g drug-eluting Stent post-dilated with 4.0 noncompliant balloon IC vasodilators administered for spasm Post procedure SADA 3 flow, stent well expanded with minimal residual stenosis and no apparent cardiac complications. Patient hypoxic throughout case with O2 sats in mid 80s on 10 to 15 L O2. LVEDP elevated and given 40 of IV Lasix Arterial Closure: TR band Summary: 1. Anterior STEMI/100% acute proximal LAD occlusion at distal aspect of prior stent 2. Minimal non-culprit vessel coronary artery disease 3. Elevated intracardiac filling pressure 4. Successful PCI of proximal LAD with 3.5 x 22 mm Maria G drug-eluting stent overlapping distal aspect of prior stent. Recommendations: Admit to ICU for continued monitoring Loaded with ticagrelor 180 mg in the emergency department Continue dual-antiplatelet therapy for at least 1 year. Trend troponins until peak, Check Echo Uptitrate beta-pasquale/JOSE as BP allows High-dose statin Consult cardiac Rehab Hemodynamics Rest Ao:: 123/62/88 Final Ao: 137/66/98 LV: 137/31 Recommendations Recommendations: PCI without planned CABG Specimens Specimens: None Radiation Exposure (mGy) 1994 Contrast (mls) 90 Fluids (cc crystalloids) Fluids (cc crystalloids): 60 Drains Drains: None Anesthesia Moderate Procedural Complication(s) None Disposition ICU I attest to the content of the Intraoperative Record and any orders documented therein. Any exceptions are noted below. [facility] Card Cath Procedure Codes Cardiac Catheterization Procedure 1: Cardiovascular Cath Procedures: 33429 Coronaries and LHC (+/-LV) Moderate Sedation Procedure 1: Sedation/Anesthesia: 89675 Mod Sedation by the same physician;Init15 Min Child Age 5 & Up Procedure 2: Sedation/Anesthesia: 32495 Mod Sedation by the same physician; Ea [id number] Minutes Stenting Procedure 1: Cardiovascular Stent Procedures: 55114 Perc transluminal revascularization of acute sub/total occl, aMI PG Care Time/CCT Total # of Minutes Spent Total Time Spent with Patient: Total time spent is greater than 50% in coordination of care (as documented) at patient's floor/unit and/or counseling patient:
[2019-12-03 01:29] LABS: Albumin Globulin Ratio 1.3 (0.9-2); Alkaline Phosphatase 73 U/L (45-117); Bilirubin,Total 0.4 mg/dl (0.2-1); Creatine Kinase 56 U/L (39-308); Creatine Kinase MB < 1.0 ng/ml (0.5-3.6); Globulin 3.1 gm/dl (2.5-4.0); Troponin I 0.037 ng/ml (0-0.045)
[2019-12-03] MEDS ORDERED: FUROSEMIDE 40 MG/4 ML VIAL IV ONE (01:56)
[2019-12-03 01:59] LABS: iSTAT Arterial Blood Gas HCO3 24 meg/L (19-24); iSTAT Arterial Blood Gas pCO2 45 mmHg (35-46); iSTAT Arterial Blood Gas pH 7.33 (7.35-7.45); iSTAT Arterial Blood Gas pO2 55 mmHg (80-95); iSTAT Carbon Dioxide 25 mmol/L (24-31); iSTAT Hematocrit 45 % (42-52); iSTAT Hemoglobin 15.3 g/dl (14.0-18.0); iSTAT Potassium 4.1 mmol/L (3.3-5.0); iSTAT Sodium 140 mmol/L (135-144)
[2019-12-03] MEDS ORDERED: ICU PROTOCOL FOR HYPERGLYCEMIA PRN (02:06)
[2019-12-03] MEDS ORDERED: ONDANSETRON INJ 2 MG/ML 2 ML VIAL IV PRN (02:06)
[2019-12-03] MEDS ORDERED: NITROGLYCERIN SL 0.4 MG/TAB TAB SL PRN (02:06)
[2019-12-03] MEDS ORDERED: ACETAMINOPHEN 325 MG TAB PO PRN (02:06)
--- NOTE | 2019-12-03 02:13 | Post Anesthesia Assessment ---
Date of Service December 03, 2019 Post Sedation Assessment Vital Signs Temp Pulse Resp BP Pulse Ox 12/03/19 01:00 69 152/86 H 89 L 12/03/19 00:58 74 154/90 H 92 12/03/19 00:48 90 12/03/19 00:44 65 143/87 H 91 12/03/19 00:40 97.9 F 66 25 H 143/87 H 92 Recovery Score Activity: Moves 4 extremities Respiration: Deep Breath/Cough Circulation: +/-20% PreAnes Value Consciousness: Fully Awake Oxygen Saturation: O2 needed for >90% Discharge Sedation Level of Care: Fast Track Phase II Post Sedation Plan On clinical assessment, the patient appears to have tolerated the sedation without complications. Patient is recovering as anticipated. Patient will continue to be monitored by nursing and may be discharged when sedation discharge criteria are met per below protocol. Upon Completions of procedure up to 15 minutes continue every 5 minute vital signs and the P.A.R. score; then discharge to a Phase I or Fast Track to Phase II per the following guidelines: * Discharge Patient to appropriate Phase II area if PAR is 8 or greater or return to pre- procedure baseline. The post - procedure orders will be as directed. * If PAR score is less than 8 or not return to pre-procedure baseline then patient will follow Phase I monitoring till PAR is reached for Phase II. The Phase I may be done in procedure room or may call to secure a Phase I area. * If naloxone or flumazenil are used for reversal, hold in Phase I for continued monitoring from when last reversal dose was given for a minimum of 60 minutes or longer pending the nurse and/or physician discretion of patient condition before discharge to Phase II. Please call the Sedation Physician to re-evaluate and complete post-note for discharge to Phase II area. Do NOT discharge from procedure sedation or Phase 1 until post- sedation evaluation note is complete by procedure /sedation MD Sedation Discharge Instructions to be given to the patient at discharge to home.
[2019-12-03] MEDS ORDERED: MoRPHine SULFATE 4 MG/ML 1 ML CARP\\VIAL IV PRN (02:24)
[2019-12-03] MEDS ORDERED: MoRPHine SULFATE 4 MG/ML 1 ML CARP\\VIAL ONE (02:29)
--- NOTE | 2019-12-03 02:36 | Critical Care Consultation ---
Date of Consultation December 03, 2019 Assessment & Plan (1) Admitted to intensive care unit: Reason Critically Ill: 69-year-old male with acute STEMI status post PTCA with GEOR[place]IE x1 to the LAD requiring close hemodynamic monitoring status post coronary intervention. NEURO - * CAM ICU: NEGATIVE * LEFT Arm Pain: * Likely anginal equivalent. * Continue with pain medication as needed. * Nitro if thought necessary. CARDIAC/VASCULAR - * Acute STEMI s/p PTCA w/ GEOR[place]IE x1 to the LAD: * Noted to have poor wall motion and cardiac output intra-procedurally. * Received IV Lasix. * May require positive pressure ventilatory techniques. * Trend troponin. * A.m. echo * ASCVD Rx per typical. * Monitor on telemetry. RESPIRATORY - * Hypoxia: * Chest x-ray does not show significant progression of pulmonary edema. * Will titrate down oxygen as needed. * Patient likely with lower saturation baseline secondary to substantial smoking history. * Goal SaO2 in the lowe 90s. * BiPAP if needed. GI/NUTRITION - * AHA diet RENAL/LYTES - * No significant electrolyte derangements - * No concerns at this time. ENDO - * No h/o DM or Thyroid Dz * BSGs per unit protocol. ISS --> gtt per unit policy. HEME - * Stable H&H * Monitor for s/s of bleeding s/p coronary intervention. ID - * No concerns for infection at this time. LINES/IV ACCESS - * PIVs x2 DVT PROPHYLAXIS - * Hold s/p intraprocedural medications. * SCDs I have personally spent 35 minutes of critical care time in the direct management of this patient. This is a life/limb threatening event. This includes time spent evaluating patient, direct bedside care, chart review, placing orders, interpretation of diagnostic studies, discussion with consultants, patient, and family members, as well as other required patient management activities. This time is exclusive of all separately billable procedures, and teaching time and separate from and in addition to any other critical care service time. Thank you for allowing us to participate in the care of this patient. Please refer to my attending physician's documentation for any further recommendations. (2) ST elevation myocardial infarction (STEMI): (3) Chest pain: (4) HTN (hypertension): (5) CAD (coronary artery disease): (6) S/P PTCA (percutaneous transluminal coronary angioplasty): (7) S/P drug eluting coronary stent placement: Supervising Physician Co-Signing Physician Notes I have personally evaluated and examined this patient. I agree with assessment and plan of Kimberly Sullivan PA-C. I was advised of this patient via telephone. Patient is doing better today, stable for downgrade later today. History of Present Illness Attending Physician: Kirit Paredes MD History of Present Illness Patient is a 69-year-old male with a significant past medical history of coronary artery disease status post LAD stenting in 2003. Patient developed an abrupt onset of pain to the LEFT arm consistent with prior history of pain associated with [facility]. He reports that he had simply grabbed a book and was headed to bed to read when the pain started. He denies any recent exertional symptoms or other episodes of chest pain over the last days to weeks. Patient underwent successful PTCA with GEORGIE x1 to the LAD. Intra-procedurally, the patient was noted to become hypoxic and there was concern for poor cardiac output. He received IV Lasix. He was placed on high flow oxygen. Upon arrival in the ICU, the patient is awake, alert, and oriented. Patient states that he is having some ongoing pain to the LEFT-sided arm which is consistent with the pain he experienced upon arrival. He does report a decrease in pain since intervention however. Patient denies any pleuritic pain or short ness of breath. He reports that he smokes at least 3 cigars/day. Prior to that, he had been a several pack year smoker. He does not wear oxygen at home. He does not feel any more short of breath than at baseline. Patient denies any headaches, palpitations, pleuritic pain, hemoptysis, or numbness/weakness to the extremities. Allergies Allergy/AdvReac Type Severity Reaction Status Date / Time No Known Allergies Allergy Unverified 12/06/19 08:23 Home Medications Home Medications Medication Instructions Recorded Confirmed Type multivitamin 1 tab PO DAILY 11/03/18 12/06/19 History atorvastatin 80 mg PO DAILY #30 tab 12/04/19 12/06/19 Rx furosemide 40 mg PO DAILY PRN #30 tab 12/04/19 12/06/19 Rx lisinopril 5 mg PO DAILY #30 tab 12/04/19 12/06/19 Rx metoprolol succinate 100 mg PO HS #180 tab 12/04/19 12/06/19 Rx ticagrelor [Brilinta] 90 mg PO BID #60 tab 12/04/19 12/06/19 Rx Patient History Medical History Benign prostatic hyperplasia with urinary obstruction (Chronic) Bladder calculi (Chronic) BPH (benign prostatic hypertrophy) (Chronic) CAD (coronary artery disease) (Chronic) HTN (hypertension) (Chronic) Hypercholesterolemia (Chronic) UTI (urinary tract infection) (Resolved) Surgical History History of hernia repair Family History Denies family history of Ovarian cancer Prostate cancer Myocardial infarction Breast cancer Colorectal cancer Social History Smoking Status: Current every day smoker Tobacco Type: Cigars Hx Alcohol Use: Yes Alcohol type: beer, wine and hard liquor Hx Substance Use: No Preferred Language: [place] Citizen Communication Ability: Effective Beliefs That Will Affect Care: None marital status: Current Living Situation: Spouse current occupational status: employed and retired current occupation: [email or web address] Feels Safe at Home: Yes Dental Care, Regularly: No Physical Activity Frequency: Does not Exercise Review of Systems Review of Systems: A complete 10 point review of systems was reviewed with the patient with pertinent positives and negatives as per history of present illne ss. All else were negative. Physical Exam Physical Exam: VITAL SIGNS - Vital signs and nursing notes were reviewed. GENERAL - 69-year-old male appearing his stated age who is in no acute distress. Communicates well with provider and answers questions appropriately. HEAD - NC/AT. EYES - PERRL with EOMI bilaterally. Sclera anicteric. Palpebral conjunctiva pink and moist with no injection noted. EARS - No deformities of external structures noted on gross examination bilaterally. NOSE - Midline and without cyanosis. No epistaxis or purulent drainage noted. MOUTH/OROPHARYNX - Without perioral cyanosis. NECK - Neck with FROM. LUNGS - Chest wall symmetric without accessory muscle use, intercostals retrac tions, or central cyanosis. Normal vesicular breath sounds CTA B/L. No wheezes, rales, or rhonchi appreciated. CARDIAC - RRR with S1/S2. No murmur, rubs, or gallops appreciated. No reproducible tenderness to palpation appreciated over the anterior chest wall. ABDOMEN - Abdominal contour flat without pulsations or visible masses. BS normoactive all four quadrants. No tenderness, palpable masses, he patosplenomegaly, or ascites noted. EXTREMITIES - No clubbing or peripheral cyanosis. No pretibial edema present. +3/5 radial and dorsalis pedis pulses palpated throughout. +5/5 strength noted in UE/LE bilaterally. NEUROLOGIC - Cranial nerves II through XII grossly intact. Sensory intact to light touch throughout. PSYCH - A&Ox3 and cooperates fully with examiner. Pt is very pleasant and interacts well with examiner. Results & Data Results & Data ([facility]) Vital Signs (Past 12 Hours) Vital Signs Temp Pulse Resp BP Pulse Ox 12/03/19 01:00 69 152/86 H 89 L 12/03/19 00:58 74 154/90 H 92 12/03/19 00:48 90 12/03/19 00:44 65 143/87 H 91 12/03/19 00:40 36.6 C 66 25 H 143/87 H 92 Coding Level of Care Code Critical Care 1st 30-74 mins Diagnoses Admitted to intensive care unit Z78.9 ST elevation myocardial infarction (STEMI) I21.3 Involved coronary artery: unspecified coronary artery Chest pain I20.0 Chest pain type: chest pain due to myocardial ischemia Ischemic chest pain type: unstable angina pectoris HTN (hypertension) I10 Hypertension type: essential hypertension CAD (coronary artery disease) I25.10 Associated angina: without angina Coronary Disease-Associated Artery/Lesion type: [place] artery [place] vs. transplanted heart: [place] heart S/P PTCA (percutaneous transluminal coronary angioplasty) Z98.61 S/P drug eluting coronary stent placement Z95.5 Time Spent (min) 35 (1) CAD (coronary artery disease) Associated angina: without angina Coronary Disease-Associated Artery/Lesion type: [place] artery [place] vs. transplanted heart: [place] heart Qualified Code(s): I25.10 - Atherosclerotic heart disease of [place] coronary artery without angina pectoris (2) ST elevation myocardial infarction (STEMI) Involved coronary artery: unspecified coronary artery Qualified Code(s): I21.3 - ST elevation (STEMI) myocardial infarction of unspecified site (3) Chest pain Chest pain type: chest pain due to myocardial ischemia Ischemic chest pain ty pe: unstable angina pectoris Qualified Code(s): I20.0 - Unstable angina (4) HTN (hypertension) Hypertension type: essential hypertension Qualified Code(s): I10 - Essential (primary) hypertension
--- NOTE | 2019-12-03 02:39 | History & Physical Report ---
Date of Service December 03, 2019 Assessment & Plan (1) Acute NE: Mr. Flo Sweeney is a 69 y/o male with past medical hx of NE with stent in 2003, HLD, CAD, HTN, BPH, cigar smoker who presented to [facility] ED for Chest Pain w/Anterior stemi with 100% acute proximal occlusion at distal aspect of prior stent. Cardiac Cath showed - Summary: 1. Anterior STEMI/100% acute proximal LAD occlusion at distal aspect of prior stent 2. Minimal non-culprit vessel coronary artery disease 3. Elevated intracardiac filling pressure 4. Successful PCI of proximal LAD with 3.5 x 22 mm Slim drug-eluting stent overlapping distal aspect of prior stent. Started on dual antiplatelet therapy with Brilinta and Aspirin, Lipitor 80mg, Lopressor 25mg PO BID, Lisinopril 5mg. - He also received Lasix 40mg IV for hypoxia from pulmonary congestion - Hypoxia post procedure corrected with Oxymask 6L - Initial trop was negative - Currently in ICU appears stable, talkative joking. - Provided smoking cessation on cigar smoking. - Hgb A1C and Lipid panel ordered - Mr. Sweeney early response to seek treatment w/intervention knowing that he was having same pain as prior probably helped him to save cardiac muscle. DVT ppx: SCDs, Heparin acutely n ED. Code: Full FENGI: Heart healthy Dispo: Currently ICU (2) Presence of stent in coronary artery: as above (3) Tobacco use: as above (4) Hypercholesterolemia: as above Admission and Anticipated Discharge Date Admission Date: December 03, 2019 History of Present Illness Chief Complaint: Chest Pain Primary Care Provider: Steven Beltran III, JIMENA Mr. Flo Sweeney is a 69 y/o male with past medical hx of NE with stent in 2003, HLD, CAD, HTN, BPH, cigar smoker who presented to [facility] ED for Chest Pain. He notes he had onset of central chest pain characterized as "pain" pain that radiated to his left arm. He notes that this felt exactly like prior NE. He notes that his left arm hurting was the do symptom for him knowing he was having an NE. 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 He notes he has NTG in his eliz pocket on the way here but forgot to take it when he had onset of chest pain. He didn't have nausea, vomiting, shortness of breath. He notes he did not take his daily ASA yesterday. He notes he follows with Dr. Connolly [facility] Cardiology. He was a heart alert in the ED and was taken to the micro lab analyst. He had a Proximal LAD stent overlapping his previous stent from 2003. He is currently in the ICU. He is talkative. He had an episode of emesis, but notes no current nausea. Hewas noted to be hypoxic post procedure, but now is 94% on 6L oxymask. He notes he still has pain to his left arm that was not relieved with morphine. His BP cuff is on left arm, was having pain prior to cuff, right arm is restricted because of cardiac cath site. He notes he smokes cigars, drinks alcohol weekly. Allergies Allergy/AdvReac Type Severity Reaction Status Date / Time No Known Allergies Allergy Unverified 12/03/19 01:00 Home Medications Home Medications Medication Instructions Recorded Confirmed Type multivitamin 1 tab PO DAILY 11/03/18 12/03/19 History aspirin 81 mg tablet 81 mg PO DAILY tab 02/23/19 12/03/19 History metoprolol succinate 100 mg 100 mg PO BID #180 tab 03/17/19 12/03/19 Rx tablet,extended release 24 hr atorvastatin 20 mg tablet 20 mg PO DAILY #90 tab 04/15/19 12/03/19 Rx Past Med/Surg History Medical History Benign prostatic hyperplasia with urinary obstruction (Chronic) Bladder calculi (Chronic) BPH (benign prostatic hypertrophy) (Chronic) CAD (coronary artery disease) (Chronic) HTN (hypertension) (Chronic) Hypercholesterolemia (Chronic) UTI (urinary tract infection) (Resolved) Surgical History History of hernia repair Family History Denies family history of Ovarian cancer Prostate cancer Myocardial infarction Breast cancer Colorectal cancer Social History Smoking Status: Current every day smoker Tobacco Type: Cigars Do You Dip or Chew Tobacco: No; Tobacco Cessation Education Requested by Patient: No Hx Alcohol Use: Yes Alcohol type: beer, wine and hard liquor Hx Substance Use: No Preferred Language: Upper Sorbian Communication Ability: Effective Beliefs That Will Affect Care: None marital status: Current Living Situation: Spouse current occupational status: employed and retired current occupation: [employer] Other Information That Helps Us Care for You: No Feels Safe at Home: Yes Safety Concerns: Feels Safe At This Time Dental Care, Regularly: No Physical Activity Frequency: Does not Exercise Review of Systems Review of Systems: All systems reviewed & are unremarkable except as noted in HPI & below Constitutional: no fever and no chills Eyes: no diplopia and no spots in vision Ear, Nose, Mouth, Throat: no nasal congestion, no epistaxis and no sore throat Respiratory: no cough and no dyspnea Cardiovascular: as per Subjective / HPI; no syncope Gastrointestinal: as per Subjective / HPI; no abdominal pain Genitourinary: no dysuria and no urinary frequency Musculoskeletal: no back pain and no neck pain Integumentary: no rash and no lesions Neurologic: no localized weakness and no numbness Endocrine: no polydipsia, no polyphagia and no polyuria Physical Exam Constitutional: WD/WN, vitals as above cooperative and comfortable Eyes: PERRL, conjunctivae normal, anicteric sclerae ENMT: external ear and nose normal, oropharynx normal poor dentition Neck: normal visual inspection and trachea midline Respiratory: normal respiratory effort, lungs clear to auscultation Cardiovascular: RRR, no murmur, no edema Gastrointestinal (Abdomen): Percussion/Palpation: abdomen soft; abdomen nontender, no guarding and abdomen not rigid Musculoskeletal: Head/Neck/Chest: normocephalic and head atraumatic Skin: no rashes, warm and dry Neurologic: moves all extremities and awake Psychiatric: A+Ox3, euthymic affect Results & Data Results & Data ([facility]) Vital Signs (Past 12 Hours) Vital Signs Temp Pulse Resp BP Pulse Ox 12/03/19 01:00 69 152/86 H 89 L 12/03/19 00:58 74 154/90 H 92 12/03/19 00:48 90 12/03/19 00:44 65 143/87 H 91 12/03/19 00:40 36.6 C 66 25 H 143/87 H 92 Laboratory Results Laboratory Results - last 24 hr 12/03/19 12/03/19 12/03/19 00:49 00:49 00:49 WBC 8.30 RBC 4.89 Hgb 16.4 POC Hgb Hct 45.9 POC Hct MCV 93.9 MCH 33.5 MCHC 35.7 RDW Std Deviation 46.4 H RDW Coeff of Markell 13.4 Plt Count 140 MPV 10.9 H Immature Gran % (Auto) 0.1 Neut % (Auto) 58.8 Lymph % (Auto) 27.1 [place] % (Auto) 9.9 Eos % (Auto) 3.7 Baso % (Auto) 0.4 Neut # (Auto) 4.88 Lymph # (Auto) 2.25 [place] # (Auto) 0.82 H Eos # (Auto) 0.31 Baso # (Auto) 0.03 Immature Gran # (Auto) 0.01 PT 10.5 INR 1.0 APTT 24.2 PTT Ratio 0.9 Activ Coag Time Kaolin POC pH POC pCO2 POC pO2 POC HCO3 POC Base Excess POC ABG O2 Sat POC Sodium Sodium 145 POC Potassium Potassium 4.0 POC Chloride Chloride 114 H Carbon Dioxide 25 POC Total CO2 Anion Gap 6.0 POC Anion Gap POC BUN BUN 21 H Creatinine 1.21 POC Creatinine Est Cr Clr Drug Dosing 68.7 Est GFR ( Amer) 69.4 Est GFR (Non-Af Amer) 59.9 BUN/Creatinine Ratio 17.4 Glucose 144 H POC Glucose (other) Calcium 8.8 POC Ioniz Calcium Beatriz Magnesium 2.4 Total Bilirubin 0.4 AST 13 L ALT 25 Alkaline Phosphatase 73 Total Creatine Kinase 56 CK-MB (CK-2) < 1.0 CK/CKMB % Calc TNP POC Troponin I Troponin I 0.037 Total Protein 7.0 Albumin 3.9 Globulin 3.1 Albumin/Globulin Ratio 1.3 Lipase 76 TSH 2.310 Nasal Screen MRSA (PCR) 12/03/19 12/03/19 12/03/19 00:50 00:53 01:41 WBC RBC Hgb POC Hgb 15.6 Hct POC Hct 46 MCV MCH MCHC RDW Std Deviation RDW Coeff of Markell Plt Count MPV Immature Gran % (Auto) Neut % (Auto) Lymph % (Auto) [place] % (Auto) Eos % (Auto) Baso % (Auto) Neut # (Auto) Lymph # (Auto) [place] # (Auto) Eos # (Auto) Baso # (Auto) Immature Gran # (Auto) PT INR APTT PTT Ratio Activ Coag Time Kaolin 241 H POC pH POC pCO2 POC pO2 POC HCO3 POC Base Excess POC ABG O2 Sat POC Sodium 143 Sodium POC Potassium 4.0 Potassium POC Chloride 107 Chloride Carbon Dioxide POC Total CO2 22 L Anion Gap POC Anion Gap 19.0 POC BUN 21 H BUN Creatinine POC Creatinine 1.1 Est Cr Clr Drug Dosing Est GFR ( Amer) Est GFR (Non-Af Amer) BUN/Creatinine Ratio Glucose POC Glucose (other) 144 H Calcium POC Ioniz Calcium Beatriz 1.15 Magnesium Total Bilirubin AST ALT Alkaline Phosphatase Total Creatine Kinase CK-MB (CK-2) CK/CKMB % Calc POC Troponin I < 0.03 Troponin I Total Protein Albumin Globulin Albumin/Globulin Ratio Lipase TSH Nasal Screen MRSA (PCR) 12/03/19 12/03/19 12/03/19 01:47 01:59 02:15 WBC RBC Hgb POC Hgb 15.3 Hct POC Hct 45 MCV MCH MCHC RDW Std Deviation RDW Coeff of Markell Plt Count MPV Immature Gran % (Auto) Neut % (Auto) Lymph % (Auto) [place] % (Auto) Eos % (Auto) Baso % (Auto) Neut # (Auto) Lymph # (Auto) [place] # (Auto) Eos # (Auto) Baso # (Auto) Immature Gran # (Auto) PT INR APTT PTT Ratio Activ Coag Time Kaolin 263 H POC pH 7.33 L POC pCO2 45 POC pO2 55 L POC HCO3 24 POC Base Excess -2.0 POC ABG O2 Sat 86.0 L POC Sodium 140 Sodium POC Potassium 4.1 Potassium POC Chloride Chloride Carbon Dioxide POC Total CO2 25 Anion Gap POC Anion Gap POC BUN BUN Creatinine POC Creatinine Est Cr Clr Drug Dosing Est GFR ( Amer) Est GFR (Non-Af Amer) BUN/Creatinine Ratio Glucose POC Glucose (other) Calcium POC Ioniz Calcium Beatriz Magnesium Total Bilirubin AST ALT Alkaline Phosphatase Total Creatine Kinase CK-MB (CK-2) CK/CKMB % Calc POC Troponin I Troponin I Total Protein Albumin Globulin Albumin/Globulin Ratio Lipase TSH Nasal Screen MRSA (PCR) Pending Code Status & VTE Plan Code Status Full Code VTE Prophylaxis Plan VTE Prophylaxis will be ordered: Yes Critical Care Time Critical Care Time: Yes Total Critical Care Time: 35 Supervising Physician Co-Signing Physician Notes Attending addendum: I have physically seen this patient, have supervised the medical residents activities, and agree with the H&P unless as otherwise noted. Assessment and Plan: Acute anterior septal NE/heart alert/hypoxia- Emergent catheterization showed proximal LAD lesion, with appointment of 1 additional stent overlapping previous stent from 2003. Admitted to the intensive care unit for follow-up. Patient was noted to have hypoxia postprocedure, requiring 10 to 15 L of oxygen. He was given Lasix IV by Dr. Mendenhall, and will be followed closely in the ICU, with the likelihood of needing BiPAP if does not respond. Remainder of orders post-cath per Dr. Mendenhall Resident Activity Tracking Resident Involvement: Resident Care Provided Care Provided: Adult [facility]
[2019-12-03 03:22] LABS: Appearance Urine Clear (Clear); Bacteria Urine Automated Negative (Negative); Bilirubin Urine Negative (Negative); Blood Urine Trace (Negative); Cast Urine Automated 0 /lpf (0-5); Color Urine Yellow; Glucose Urine UA Negative (Negative); Ketones Urine Negative (Negative); Leukocyte Esterase Urine Negative (Negative); Nitrite Urine Negative (Negative); Protein Urine Negative (Negative); RBC Urine Automated 0-4 /hpf (0-4); Urobilinogen Urine Negative (Negative); pH Urine 6.5 (4.5-7.5)
[2019-12-03 05:22] LABS: Basophils # (auto) 0.01 K/uL (0-0.2); Basophils % (auto) 0.1 %; Eosinophils # (auto) 0.02 K/uL (0-0.5); Eosinophils % (auto) 0.1 %; Hematocrit (blood only) 49.5 % (42-52); Hemoglobin 17.1 g/dL (14.0-18.0); Immature Granulocytes # (auto) 0.03 K/uL (0.00-0.02); Immature Granulocytes % (auto) 0.2 %; Lymphocytes # (auto) 1.02 K/uL (1.2-3.4); Mean Corpuscular Hgb Conc 34.5 g/dL (32-36); Mean Corpuscular Volume 95.6 fL (80-100); Mean Platelet Volume 11.2 fL (7.4-10.4); Monocytes # (auto) 0.48 K/uL (0.11-0.59); Monocytes % (auto) 3.3 %; Neutrophils # (auto) 12.99 K/uL (1.4-6.5); Neutrophils % (auto) 89.3 %; Platelet Count 142 K/uL (130-400); RDW Coefficient of Variation 13.5 % (11.5-14.5); RDW Standard Deviation 46.9 fL (36.4-46.3); Red Blood Count 5.18 M/uL (4.7-6.1); White Blood Count 14.55 K/uL (4.8-10.8)
[2019-12-03 05:52] LABS: BUN Creatinine Ratio 16.2 (10-20); Calcium 8.6 mg/dl (8.5-10.1); Creatinine Clr Calc Pharmacy 67.9 ml/min; Est GFR (Non-African American) 58.7; Magnesium 2.4 mg/dl (1.8-2.4); Potassium 4.2 mmol/L (3.5-5.1)
[2019-12-03 06:08] LABS: Phosphorus 2.9 mg/dl (2.5-4.9); Troponin I 12.3 ng/ml (0-0.045)
--- NOTE | 2019-12-03 07:41 | XRay Report ---
XR chest 1V portable CLINICAL HISTORY: hypoxia, ?worsening pulm edema COMPARISON STUDY: Chest radiograph December 03, 2019 at 12:45 AM. FINDINGS: Underlying emphysema is present. There is no pneumothorax or pleural effusion. There is bor derline cardiomegaly. Interstitial thickening is similar to prior exam. No consolidation is identifie d. IMPRESSION: 1. No significant change in interstitial thickening consistent with pulmonary edema. 2. Emphysema. ACT 112: Negative or not required by law. Electronically signed by: Bigg Rudolph M.D. 12/03/2019 7:40 AM
--- NOTE | 2019-12-03 07:43 | XRay Report ---
XR chest 1V portable CLINICAL HISTORY: Chest pain COMPARISON STUDY: Chest radiograph October 02, 2015. FINDINGS: Positioning is noted. There is no pneumothorax or pleural effusion. Cardiac size is at the upper limits of normal. Interstitial thickening represents pulmonary edema. An equivocal 1.6 cm right midlung nodular density is probably artifactual. IMPRESSION: 1. Mild pulmonary edema. 2. Emphysema. 3. 1.6 cm nodular right midlung density. This is likely artifactual. This can be assessed on subseque nt exams. ACT 112: Negative or not required by law. Electronically signed by: Bigg Rudolph M.D. 12/03/2019 7:41 AM
[2019-12-03] MEDS: lisinopriL 5 MG TAB PO SCH (08:12)
[2019-12-03] MEDS: ATORVASTATIN 40 MG TAB PO SCH (08:12)
[2019-12-03] MEDS: ASPIRIN 81 MG ECTAB PO SCH (08:12)
[2019-12-03] MEDS ORDERED: METOPROLOL TARTRATE 25 MG TAB PO SCH (09:00)
[2019-12-03 09:03] LABS: Estimated Average Glucose 126 mg/dl
[2019-12-03] MEDS ORDERED: FUROSEMIDE 20 MG in SYRINGE 0 ML IV ONE (10:00)
--- NOTE | 2019-12-03 10:53 | Cardiology Progress Note ---
Date of Service December 03, 2019 Assessment & Plan (1) ST elevation myocardial infarction (STEMI): 69 year old male w/ hx of HTN and 2003 NC s/p LAD stent who presented w/ anterior STEMI and 100% occlusion of the Subjective Flo Sweeney is a 69 year old male w/ past medical hx of NC s/p LAD stent is 2003, HTN, BPH who presented to [facility] ED w/ chest pain last night around midnight and received PCI w/ GEORGIE for anterior STEMI. The initial presentation was midsternal chest pain w/ sharp L arm pain that started while he was at home transitioning between desk work and the bed. He had diaphoresis at the time, but denied any F/C, N/V, KENDALL, vision changes, dizziness, dyspnea. Had nitro, but did not take. Had been prescribed emergency nitro but had not needed to take it. After the stent placement, he had some postop hypoxia, so was placed on 6L supp O2 NC, since decreased to 4L. Denies Hx of CHF, leg swelling. States that he is generally healthy and is fairly active (fishing, camping). No other recent hospitalizations or ED visits. Currently, he has some L arm pain that is milder but similar in quality to what he presented with on admission. No current CP, N/V, F/C, or diaphoresis. Review of Systems Review of Systems: Constitutional: Denies fever, chills Eyes: Denies vision changes Cardiovascular: Denies Chest pain, chest pressure, palpitations, extremity swelling Respiratory: Denies shortness of breath Gastrointestinal: Denies abdominal pain, nausea, vomiting, constipation, diarrhea Genitourinary: Denies urinary symptoms including dysuria Musculoskeletal: As per HPI Neurological: Denies headache, numbness, tingling, focal weakness Physical Exam Physical Exam: General: Alert and oriented. NAD. Cooperative. HEENT: EOMI. Poor dentition with a few teeth remaining. Moist mucous membranes. Pulm: CTAB. -wheezes, -rales, -rhonchi. No increase work of breathing. No respiratory distress while on nasal cannula. Cardiac: RRR. No murmurs, rubs, or gallops. No carotid bruits on auscultation. Radial and DP pulses 2+ bilaterally. Abdominal: Nontender, nondistended, soft. Musculoskeletal: No LE edema. Full ROM of bilateral upper extremities w/o pain during movement. Results & Data Vital Signs (Past 12 Hours) Vital Signs Temp Pulse Pulse Resp BP BP Pulse Ox 12/03/19 10:01 83 21 91 12/03/19 10:00 83 22 145/73 H 92 12/03/19 09:59 96 12/03/19 09:01 81 21 90 12/03/19 09:00 81 22 138/68 90 12/03/19 08:01 87 20 92 12/03/19 08:00 83 24 149/72 H 94 12/03/19 07:01 87 21 93 12/03/19 07:00 92 H 21 130/73 95 12/03/19 06:01 93 H 20 94 12/03/19 06:00 93 H 21 133/63 94 12/03/19 05:45 93 H 21 94 12/03/19 05:00 36.8 C 87 22 137/78 93 12/03/19 04:30 92 H 22 134/74 95 12/03/19 04:01 99 H 20 141/70 H 94 12/03/19 03:30 91 H 24 151/67 H 97 12/03/19 03:16 89 20 155/80 H 92 12/03/19 03:00 93 H 16 162/78 H 94 12/03/19 02:45 87 19 157/69 H 94 12/03/19 02:40 87 21 94 12/03/19 02:31 83 22 98 12/03/19 02:30 85 20 156/87 H 97 12/03/19 02:21 36.5 C 89 20 156/87 H 94 12/03/19 02:16 96 H 16 145/65 H 84 L 12/03/19 02:08 80 12/03/19 01:00 69 152/86 H 89 L 12/03/19 00:58 74 154/90 H 92 12/03/19 00:48 90 12/03/19 00:44 65 143/87 H 91 12/03/19 00:40 36.6 C 66 25 H 143/87 H 92 Pulse Ox 12/03/19 10:01 12/03/19 10:00 12/03/19 09:59 12/03/19 09:01 12/03/19 09:00 12/03/19 08:01 12/03/19 08:00 91 12/03/19 07:01 12/03/19 07:00 12/03/19 06:01 12/03/19 06:00 12/03/19 05:45 12/03/19 05:00 12/03/19 04:30 12/03/19 04:01 12/03/19 03:30 12/03/19 03:16 12/03/19 03:00 12/03/19 02:45 12/03/19 02:40 12/03/19 02:31 12/03/19 02:30 12/03/19 02:21 12/03/19 02:16 12/03/19 02:08 12/03/19 01:00 12/03/19 00:58 12/03/19 00:48 12/03/19 00:44 12/03/19 00:40 Laboratory Results 12/03/19 troponin I 0049: 0.037 0437: 12.3 0805: 26.5. tonyi Dr. Pride surprised it's not higher todo: look up troponin elevation after PCI procedure 1020: pending Diagnostic Findings 12/03/19 cxr 0048: mild pulm edema. emphysema. 1.6cm nodular R midlung density, likely artifactual 0234: no significant in interstitial thickening consistent with pulm edema. emphysema. borderline cardiomegaly 12/03/19 0108: PCI. 100% 100% proximal LAD occlusion at distal aspect of prior stent. Drug eluting stent placed. (1) ST elevation myocardial infarction (STEMI) Involved coronary artery: unspecified coronary artery Qualified Code(s): I21.3 - ST elevation (STEMI) myocardial infarction of unspecified site
--- NOTE | 2019-12-03 13:38 | Cardiology Progress Note ---
Date of Service December 03, 2019 Assessment & Plan (1) Acute WA: -100% acute occlusion involving the distal end of prior stent. - 3.5 x 22 mm GEORGIE overlapping prior stent. -continue dual anti-platelet therapy for at least 1 year. (2) CAD (coronary artery disease): -had a proximal LAD stent placed in 2003. -only luminal irregularities noted in other coronary arteries. (3) HTN (hypertension): -adequate control on current medical regimen. (4) Hypercholesterolemia: -would increase dose of atorvastatin. Admission and Anticipated Discharge Date Admission Date: December 03, 2019 Subjective The patient is resting comfortably in bed without complaints of chest pain or dyspnea. Physical Exam Physical Exam: In general this is a well-developed well-nourished white male in no acute distress. HEENT exam is negative. Neck is supple with full carotid upstrokes. There are no carotid bruits. Jugular venous pressure is flat at 90 . There is no thyromegaly. Cardiovascular exam reveals a regular rhythm with distant heart sounds. No obvious murmurs. Lungs are clear without rales, rhonchi, or wheezes. Abdomen is soft and nontender without bruits. Extremities reveal intact radial artery and posterior tibial pulses bilaterally. Right wrist is dressed. There is no peripheral edema. Results & Data ([facility]) Vital Signs (Past 12 Hours) Vital Signs Temp Pulse Pulse Resp BP BP Pulse Ox 12/03/19 12:00 36.8 C 78 12/03/19 10:01 83 21 91 12/03/19 10:00 83 22 145/73 H 92 12/03/19 09:59 96 12/03/19 09:01 81 21 90 12/03/19 09:00 81 22 138/68 90 12/03/19 08:01 87 20 92 12/03/19 08:00 83 24 149/72 H 94 12/03/19 07:01 87 21 93 12/03/19 07:00 92 H 21 130/73 95 12/03/19 06:01 93 H 20 94 12/03/19 06:00 93 H 21 133/63 94 12/03/19 05:45 93 H 21 94 12/03/19 05:00 36.8 C 87 22 137/78 93 12/03/19 04:30 92 H 22 134/74 95 12/03/19 04:01 99 H 20 141/70 H 94 12/03/19 03:30 91 H 24 151/67 H 97 12/03/19 03:16 89 20 155/80 H 92 12/03/19 03:00 93 H 16 162/78 H 94 12/03/19 02:45 87 19 157/69 H 94 12/03/19 02:40 87 21 94 12/03/19 02:31 83 22 98 12/03/19 02:30 85 20 156/87 H 97 12/03/19 02:21 36.5 C 89 20 156/87 H 94 12/03/19 02:16 96 H 16 145/65 H 84 L 12/03/19 02:08 80 Pulse Ox 12/03/19 12:00 12/03/19 10:01 12/03/19 10:00 12/03/19 09:59 12/03/19 09:01 12/03/19 09:00 12/03/19 08:01 12/03/19 08:00 91 12/03/19 07:01 12/03/19 07:00 12/03/19 06:01 12/03/19 06:00 12/03/19 05:45 12/03/19 05:00 12/03/19 04:30 12/03/19 04:01 12/03/19 03:30 12/03/19 03:16 12/03/19 03:00 12/03/19 02:45 12/03/19 02:40 12/03/19 02:31 12/03/19 02:30 12/03/19 02:21 12/03/19 02:16 12/03/19 02:08 Laboratory Results Troponin I has peaked at 26.5. Diagnostic Findings electronic device monitor is benign. PG Care Time/CCT Total # of Minutes Spent Total Time Spent with Patient: Total time spent is greater than 50% in coordination of care (as documented) at patient's floor/unit and/or counseling patient: Coding Level of Care Code 54230 Subseq Hosp Care Lvl 3 Diagnoses Acute [place] I21.9 CAD (coronary artery disease) I25.10 Coronary Disease-Associated Artery/Lesion type: [place] artery [place] vs. transplanted heart: [place] heart Associated angina: without angina HTN (hypertension) I10 Hypertension type: essential hypertension Hypercholesterolemia E78.00 (1) CAD (coronary artery disease) Coronary Disease-Associated Artery/Lesion type: [place] artery [place] vs. transplanted heart: [place] heart Associated angina: without angina Qualified Code(s): I25.10 - Atherosclerotic heart disease of [place] coronary artery without angina pectoris (2) HTN (hypertension) Hypertension type: essential hypertension Qualified Code(s): I10 - Essential (primary) hypertension
--- NOTE | 2019-12-03 14:39 | Hospitalist Progress Note ---
Date of Service December 03, 2019 Assessment & Plan (1) ST elevation myocardial infarction (STEMI): Due to occlusion of the LAD at the end of his prior stent. - Underwent PCI on 12/02 with one additional stent. - Continue ASA, ticagrelor, statin, ACEi, beta-pasquale - Move from ICU after 24 hours (2) Acute CHF: Acute systolic vs diastolic CHF in setting of STEMI & acute respiratory failure with hypoxia in setting of STEMI and CHF treated with IV Lasix and O2. - Will get TTE tomorrow to assess heart function. - Extra dose of Lasix today per cardiology. (3) HTN (hypertension): BP presently 145/75. - Titrate cardiac meds (4) BPH (benign prostatic hypertrophy): No LUTS today. - Monitor for retention (5) DVT prophylaxis: Early ambulation Admission and Anticipated Discharge Date Admission Date: December 03, 2019 Subjective Feeling fine today. No major concerns. Reports no fevers/chills, chest pain, shortness of breath, abdominal pain, nausea, or vomiting. Physical Exam Constitutional: WD/WN, vitals as above Eyes: EOM intact bilaterally; no conjunctival abnormality ENMT: external ear and nose normal, oropharynx normal Neck: trachea midline, no thyromegaly normal visual inspection Respiratory: normal respiratory effort, lungs clear to auscultation no respiratory distress Cardiovascular: RRR, no murmur, no edema Gastrointestinal (Abdomen): Inspection/Auscultation: abdomen normal to inspection; abdomen not distended Musculoskeletal: no cyanosis or clubbing, extremities motor strength 5/5 Skin: no rashes, warm and dry Neurologic: moves all extremities and awake Psychiatric: Orientation: alert, oriented to person and cooperative Results & Data Results & Data ([facility]) Vital Signs (Past 12 Hours) Vital Signs Temp Pulse Resp BP Pulse Ox Pulse Ox 12/03/19 12:00 36.8 C 78 12/03/19 10:01 83 21 91 12/03/19 10:00 83 22 145/73 H 92 12/03/19 09:59 96 12/03/19 09:01 81 21 90 12/03/19 09:00 81 22 138/68 90 12/03/19 08:01 87 20 92 12/03/19 08:00 83 24 149/72 H 94 91 12/03/19 07:01 87 21 93 12/03/19 07:00 92 H 21 130/73 95 12/03/19 06:01 93 H 20 94 12/03/19 06:00 93 H 21 133/63 94 12/03/19 05:45 93 H 21 94 12/03/19 05:00 36.8 C 87 22 137/78 93 12/03/19 04:30 92 H 22 134/74 95 12/03/19 04:01 99 H 20 141/70 H 94 12/03/19 03:30 91 H 24 151/67 H 97 12/03/19 03:16 89 20 155/80 H 92 12/03/19 03:00 93 H 16 162/78 H 94 12/03/19 02:45 87 19 157/69 H 94 12/03/19 02:40 87 21 94 PG Care Time/CCT Total # of Minutes Spent Total Time Spent with Patient: Total time spent is greater than 50% in coordination of care (as documented) at patient's floor/unit and/or counseling patient: Coding Level of Care Code 42632 Subseq Hosp Care Lvl [address] elevation myocardial infarction (STEMI) I21.3 Involved coronary artery: unspecified coronary artery Acute CHF I50.9 HTN (hypertension) I10 Hypertension type: essential hypertension BPH (benign prostatic hypertrophy) N40.0 Lower urinary tract symptom presence: symptoms absent DVT prophylaxis Z29.9 (1) ST elevation myocardial infarction (STEMI) Involved coronary artery: unspecified coronary artery Qualified Code(s): I21.3 - ST elevation (STEMI) myocardial infarction of unspecified site (2) HTN (hypertension) Hypertension type: essential hypertension Qualified Code(s): I10 - Essential (primary) hypertension (3) BPH (benign prostatic hypertrophy) Lower urinary tract symptom presence: symptoms absent Qualified Code(s): N40.0 - Benign prostatic hyperplasia without lower urinary tract symptoms
--- NOTE | 2019-12-03 16:00 | Electrocardiogram Report ---
Test Reason : Blood Pressure : / mmHG Vent. Rate : 066 BPM Atrial Rate : 066 BPM P-R Int : 166 ms QRS Dur : 096 ms QT Int : 422 ms P-R-T Axes : 070 036 068 degrees QTc Int : 442 ms Normal sinus rhythm with sinus arrhythmia Septal infarct , age undetermined Abnormal ECG When compared with ECG of 02-OCT-2015 11:38, ST elevation now present in Anterior leads Confirmed by Adarsh Connolly ([id number]) on 12/03/2019 3:59:44 PM Referred By: REFERRED SELF Confirmed By:Adarsh Connolly
--- NOTE | 2019-12-03 16:01 | Electrocardiogram Report ---
Test Reason : Blood Pressure : / mmHG Vent. Rate : 083 BPM Atrial Rate : 083 BPM P-R Int : 180 ms QRS Dur : 092 ms QT Int : 394 ms P-R-T Axes : 083 056 093 degrees QTc Int : 462 ms Normal sinus rhythm Septal infarct (cited on or before 03-DEC-2019) Abnormal ECG When compared with ECG of 03-DEC-2019 00:43, (unconfirmed) Serial changes of evolving Septal infarct Present Confirmed by Adarsh Connolly ([id number]) on 12/03/2019 4:00:58 PM Referred By: REFERRED SELF Confirmed By:Adarsh Connolly
--- NOTE | 2019-12-03 19:53 | Billing Data ---
Date of Service December 03, 2019 Coding Level of Care Code Critical Care 1st - mins
[2019-12-03] MEDS: TICAGRELOR 90 MG TAB PO SCH (20:02)
[2019-12-03] MEDS: METOPROLOL TARTRATE 50 MG TAB PO SCH (20:03)
[2019-12-04 04:26] LABS: BUN Creatinine Ratio 16.3 (10-20); Calcium 8.5 mg/dl (8.5-10.1); Creatinine Clr Calc Pharmacy 80.3 ml/min; Est GFR (African American) 83.3; Est GFR (Non-African American) 71.9; Potassium 3.8 mmol/L (3.5-5.1)
[2019-12-04] MEDS: TICAGRELOR 90 MG TAB PO SCH (08:46)
[2019-12-04] MEDS: ASPIRIN 81 MG ECTAB PO SCH (08:47)
[2019-12-04] MEDS: ATORVASTATIN 40 MG TAB PO SCH (08:47)
[2019-12-04] MEDS: lisinopriL 5 MG TAB PO SCH (08:47)
[2019-12-04] MEDS: METOPROLOL TARTRATE 50 MG TAB PO SCH (08:47)
--- NOTE | 2019-12-04 12:04 | XCELERA ---
[id number] \\[id number]
--- NOTE | 2019-12-04 14:56 | Discharge Summary ---
Date of Service December 04, 2019 Admission HPI Per Admitting Provider Mr. Flo Sweeney is a 69 y/o male with past medical hx of WI with stent in 2003, HLD, CAD, HTN, BPH, cigar smoker who presented to [facility] for Chest Pain. He notes he had onset of central chest pain characterized as "pain" pain that radiated to his left arm. He notes that this felt exactly like prior WI. He notes that his left arm hurting was the do symptom for him knowing he was having an WI. 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 He notes he has NTG in his eliz pocket on the way here but forgot to take it when he had onset of chest pain. He didn't have nausea, vomiting, shortness of breath. He notes he did not take his daily ASA yesterday. He notes he follows with Dr. Connolly [facility]. He was a heart alert in the ED and was taken to the clinical laboratory medical director. He had a Proximal LAD stent overlapping his previous stent from 2003. He is currently in the ICU. He is talkative. He had an episode of emesis, but notes no current nausea. Hewas noted to be hypoxic post procedure, but now is 94% on 6L oxymask. He notes he still has pain to his left arm that was not relieved with morphine. His BP cuff is on left arm, was having pain prior to cuff, right arm is restricted because of cardiac cath site. He notes he smokes cigars, drinks alcohol weekly. Principal Diagnosis STEMI Discharge Exam Constitutional WD/WN, vitals as above Eyes EOM intact bilaterally; no conjunctival abnormality ENMT external ear and nose normal, oropharynx normal Neck trachea midline, no thyromegaly normal visual inspection Respiratory normal respiratory effort, lungs clear to auscultation no respiratory distress Cardiovascular RRR, no murmur, no edema Gastrointestinal (Abdomen) Inspection/Auscultation: abdomen normal to inspection; abdomen not distended Musculoskeletal no cyanosis or clubbing, extremities motor strength 5/5 Skin no rashes, warm and dry Neurologic moves all extremities and awake Psychiatric Orientation: alert, oriented to person and cooperative Discharge Data Allergies Allergy/AdvReac Type Severity Reaction Status Date / Time No Known Allergies Allergy Unverified 12/03/19 01:00 Consultations 12/03/19 02:08 Consult Cardiac Rehabilitation Routine Consult Case Management - Discharge Planning Routine Consult Grooving Lathe Tender Routine Procedures Performed Operation Date: 12/03/19 01:15 Actual Procedures s Cineradiography w/Routine Exam - James Mendenhall MD p Aspiration/PCI w/GEORGIE for Stemi - James Mendenhall MD p Cath, Left with Cors and Vent - James Mendenhall MD Ordered Studies 12/03/19 01:08 CL Cath Imgs for PACS use only Stat Hospital Course (1) ST elevation myocardial infarction (STEMI): Due to occlusion of the LAD at the end of his prior stent. - Underwent PCI on 12/02 with one additional stent. - Continued ASA, ticagrelor, statin, ACEi, beta-pasquale -> Given coupon card for Brillinta. Will follow up with Dr. Connolly next week. (2) Acute CHF: Acute systolic CHF in setting of STEMI & acute respiratory failure with hypoxia in setting of STEMI and CHF treated with IV Lasix and O2. - Echo on 12/04/2019 showed EF 30-35% with akinesis of mid/distal anterior wall and apex and hypokinesis of anteroseptum. - On discharge, he felt well and had no signs of CHF. Discharge weight was 98 kg / 215 lbs. I think he is euvolemic at this weight. I initially did not send him out on Lasix as he felt well, but I did send a PRN Lasix to his pharmacy with instructions to measure his weight. This was discussed on the phone with the patient. He will monitor weights at home and only take it if his weight increases. He was told to call Dr. Connolly's office if this occurs. (3) HTN (hypertension): BP presently 145/75. - Titrate cardiac meds (4) BPH (benign prostatic hypertrophy): No LUTS today. - Monitor for retention (5) DVT prophylaxis: Early ambulation Total Time Total Time Spent Total Time Spent (In Minutes): 35 Discharge Plan Discharge Items Patient Disposition: Home - Self-Care Reason For Visit: STEMI Discharge Diagnosis: ST-elevation WI Activity: Resume your previous activity Non-emergency contact: Primary Care Provider and Gas Station Service Attendant Call non-emergency contact if: your symptoms worsen Follow-up/Referrals: Adarsh Connolly MD [Physician] - (Please see Dr. Connolly next week to see how you are doing.) Steven Beltran III, JIMENA [Primary Care Provider] - Diet: Heart Healthy Addtl Attending Provider Instructions: You were admitted with a heart attack. Please take the medications as follows to keep your stent happy and open. Pending Studies at Discharge: No Stand-Alone Forms: My [facility] Physician Referral Network (PRN), Smoking Cessation Medications and DC Order Prescriptions: New Brilinta 90 mg Tablet 90 mg PO BID Qty: 60 RF: 0 lisinopril 5 mg tablet 5 mg PO DAILY Qty: 30 RF: 0 atorvastatin 80 mg tablet 80 mg PO DAILY Qty: 30 RF: 0 Continued aspirin 81 mg tablet 81 mg PO DAILY RF: 0 multivitamin tablet 1 tab PO DAILY RF: 0 Changed metoprolol succinate 100 mg tablet extended release 24 hr 100 mg PO HS Qty: 180 RF: 3 Discontinued atorvastatin 20 mg tablet 20 mg PO DAILY Qty: 90 RF: 3 Discharge Orders: Discharge Order (Routine); Ordered 12/04/19 Ordered By: John Marc/Other Patient Handouts: A1C Admission Data Admit Date/Time: 12/03/19 02:08 Attending Provider: John Estes Admit Provider: James Mendenhall Primary Care Provider: Steven Beltran III Other Providers: Earle Thornton Other Interventions: Discharge Summary Assessment (RN) Last Done: 12/04/19 11:26 DC Date/Time DO NOT enter until pt leaves facility: 12/04/19 12:22 Coding Level of Care Code D/C Day Management >[address] elevation myocardial infarction (STEMI) I21.3 Involved coronary artery: unspecified coronary artery Acute CHF I50.9 HTN (hypertension) I10 Hypertension type: essential hypertension BPH (benign prostatic hypertrophy) N40.0 Lower urinary tract symptom presence: symptoms absent DVT prophylaxis Z29.9
== END 2019-12-04 12:22 | disposition home or self-care (01) | DRG 246 ==
LOC: ED 00:39 → CC 01:12 → SUATTDRO 02:08 → 1E 02:08 → 2N 19:49

== ENCOUNTER 2020-09-15 09:42 | Inpatient (IN) ==
[2020-09-15] MEDS ORDERED: SODIUM CHLORIDE 0.9% 500 ML IV STA (11:00)
[2020-09-15] MEDS ORDERED: PIPERACILLIN/TAZOBACTAM 4.5 GM/120 ML BAG IV ONE (11:00)
[2020-09-15] MEDS ORDERED: PIPERACILL/TAZOBAC CONSULT ACTIVE PRN ×2 (11:00→17:16)
--- NOTE | 2020-09-15 11:03 | Emergency Department Note ---
History of Present Illness General Chief complaint: Testicular Pain Time Seen by Provider: 09/15/20 10:52 Source: patient Mode of arrival: EMS Limitations: no limitations History of Present Illness Provider complaint: Right groin pain Maximum Pain Intensity: 5 This is a 70-year-old male who presents to the ED with a chief complaint of right groin pain with swelling and redness that started yesterday p.m. He states that he has history of hernia repair in the past a number of years back at a hospital in [place] that no longer exists. The patient denies any additional symptoms other than worsening discomfort with touching the area. He denies any nausea vomiting. No fevers. Symptoms are moderate. Difficult to walk. Home Medications Medication Instructions Recorded Confirmed Type multivitamin 1 tab PO QAM 11/03/18 09/15/20 History lisinopril 5 mg PO DAILY #30 tab 12/04/19 09/15/20 Rx acetaminophen [Acetaminophen Extra 500 mg PO QID 09/15/20 09/15/20 History Strength] acetaminophen [Tylenol] 325 mg PO Q4H PRN 09/15/20 09/15/20 History amiodarone 200 mg PO QAM 09/15/20 09/15/20 History apixaban [Eliquis] 5 mg PO BID 09/15/20 09/15/20 History [id number] HMB 1 ea PO BID 09/15/20 09/15/20 History [Tucker] aspirin 81 mg PO DAILY 09/15/20 09/15/20 History atorvastatin 80 mg PO QAM 09/15/20 09/15/20 History chlorhexidine gluconate 1 applic PO TID 09/15/20 09/15/20 History cholecalciferol (vitamin D3) 25 mcg PO DAILY 09/15/20 09/15/20 History clopidogrel 75 mg PO DAILY 09/15/20 09/15/20 History docusate sodium 100 mg PO BID 09/15/20 09/15/20 History finasteride 5 mg PO QAM 09/15/20 09/15/20 History fluoxetine 20 mg PO QAM 09/15/20 09/15/20 History gabapentin 100 mg PO TID 09/15/20 09/15/20 History metoprolol tartrate 12.5 mg PO DAILY 09/15/20 09/15/20 History polyethylene glycol 3350 [Miralax] 17 g PO TUTHSA 09/15/20 09/15/20 History ropinirole 0.5 mg PO QID 09/15/20 09/15/20 History tamsulosin 0.4 mg PO QPM 09/15/20 09/15/20 History Allergies Allergy/AdvReac Type Severity Reaction Status Date / Time No Known Allergies Allergy Verified 09/15/20 11:35 Past Med/Surg History Medical History Benign prostatic hyperplasia with urinary obstruction Bladder calculi BPH (benign prostatic hypertrophy) CAD (coronary artery disease) Hematuria HTN (hypertension) Hypercholesterolemia UTI (urinary tract infection) Surgical History History of hernia repair Family History Denies family history of Ovarian cancer Prostate cancer Myocardial infarction Breast cancer Colorectal cancer Social History Smoking Status: Former smoker Tobacco Type: Cigarettes Hx Alcohol Use: Yes Alcohol type: beer, wine and hard liquor Hx Substance Use: No Preferred Language: Estonian Communication Ability: Effective Beliefs That Will Affect Care: None marital status: Current Living Situation: Spouse current occupational status: employed and retired current occupation: [employer] Feels Safe at Home: Yes Dental Care, Regularly: No Physical Activity Frequency: Does not Exercise Assistive Devices: Oxygen - Continuous Review of Systems A total of 10 systems reviewed and were otherwise negative Physical Exam Vital Signs Vital Signs - 24 hr 09/15/20 09:45 09/15/20 09:49 09/15/20 09:56 Temperature Temperature Source Pulse Rate 67 72 70 Pulse Rate from SpO2 Sensor 72 70 Pulse Rhythm Regular Pulse Strength Respiratory Rate 20 29 H 30 H Respiratory Effort / Characteristics Respiratory Depth Respiratory Pattern Blood Pressure 135/89 Blood Pressure Mean 104 Blood Pressure Position Pulse Oximetry 92 92 93 Oxygen Delivery Method Room Air Sepsis Recent Fever Within 48 Hours Sepsis New/Unexplained Change in Mental Status Sepsis Action Taken by Nursing 09/15/20 09:58 09/15/20 10:00 09/15/20 10:01 Temperature 36.7 C Temperature Source Oral Pulse Rate 72 69 69 Pulse Rate from SpO2 Sensor 69 69 Pulse Rhythm Regular Pulse Strength Normal Respiratory Rate 30 H 26 H 24 Respiratory Effort / Characteristics Non-Labored Spontaneous Respiratory Depth Normal Respiratory Pattern Regular Blood Pressure 135/89 123/57 L Blood Pressure Mean 104 79 Blood Pressure Position Sitting Pulse Oximetry 92 92 91 Oxygen Delivery Method Room Air Sepsis Recent Fever Within 48 Hours No Sepsis New/Unexplained Change in Mental Status No Sepsis Action Taken by Nursing No Action Required 09/15/20 10:30 09/15/20 10:31 09/15/20 11:00 Temperature Temperature Source Pulse Rate 65 65 67 Pulse Rate from SpO2 Sensor 65 66 67 Pulse Rhythm Pulse Strength Respiratory Rate 22 22 31 H Respiratory Effort / Characteristics Respiratory Depth Respiratory Pattern Blood Pressure 116/51 L 124/66 Blood Pressure Mean 72 85 Blood Pressure Position Pulse Oximetry 90 90 91 Oxygen Delivery Method Sepsis Recent Fever Within 48 Hours Sepsis New/Unexplained Change in Mental Status Sepsis Action Taken by Nursing 09/15/20 11:30 09/15/20 12:00 09/15/20 12:01 Temperature Temperature Source Pulse Rate 63 60 62 Pulse Rate from SpO2 Sensor 63 62 62 Pulse Rhythm Pulse Strength Respiratory Rate 24 22 22 Respiratory Effort / Characteristics Respiratory Depth Respiratory Pattern Blood Pressure 139/64 Blood Pressure Mean 89 Blood Pressure Position Pulse Oximetry 90 87 L 91 Oxygen Delivery Method Sepsis Recent Fever Within 48 Hours Sepsis New/Unexplained Change in Mental Status Sepsis Action Taken by Nursing 09/15/20 12:30 09/15/20 13:00 09/15/20 13:01 Temperature Temperature Source Pulse Rate 59 L 64 63 Pulse Rate from SpO2 Sensor 59 L 64 63 Pulse Rhythm Pulse Strength Respiratory Rate 19 19 21 Respiratory Effort / Characteristics Respiratory Depth Respiratory Pattern Blood Pressure 140/54 L 141/68 H Blood Pressure Mean 82 92 Blood Pressure Position Pulse Oximetry 90 91 94 Oxygen Delivery Method Sepsis Recent Fever Within 48 Hours Sepsis New/Unexplained Change in Mental Status Sepsis Action Taken by Nursing CONSTITUTIONAL/VITAL SIGNS: Reviewed / noted above. GENERAL: Non-toxic in appearance. INTEGUMENTARY: Warm, dry, and [place]. HEAD: Normocephalic. EYES: without scleral icterus or trauma. ENT/OROPHARYNX: clear and moist. LYMPHADENOPATHY/NECK: Is supple without lymphadenopathy or meningismus. RESPIRATORY: Lungs clear and equal. CARDIOVASCULAR: Regular rate and rhythm. GI/ABDOMEN: Soft and nontender. No organomegaly or pulsatile mass. No rebound or guarding. Normal bowel sounds. EXTREMITIES: Warm and well perfused. BACK: No CVA tenderness. NEUROLOGICAL: Intact without focal deficits. PSYCHIATRIC: normal affect. MUSCULOSKELETAL: Normally developed with good muscle tone. : Patient appears to have moderate swelling and tenderness pills redness in the right scrotum and right inguinal region. TRIAGE NURSING DOCUMENTATION REVIEWED. Course Administered Medications Discontinued Medications Sodium Chloride (Nss) 500 mls @ 999 mls/hr IV .Q31M STA Stop: 09/15/20 11:30 Last Infusion: 09/15/20 12:28 Dose: 0 mls/hr Documented by: [id number] Admin: 09/15/20 11:48 Dose: 999 mls/hr Documented by: [id number] Piperacillin Sod/Tazobactam Sod (Zosyn) 4.5 gm in 120 mls @ 240 mls/hr IV NOW ONE Stop: 09/15/20 11:29 Last Infusion: 09/15/20 12:28 Dose: 0 mls/hr Documented by: [id number] Admin: 09/15/20 11:29 Dose: 240 mls/hr Documented by: [id number] Medical Decision Making Differential Diagnosis Differential considered: pancreatitis, hepatitis, acute cholecystitis, AAA, UTI, pyelonephritis, kidney stones, appendicitis, diverticulitis, shingles, bowel obstruction, mesenteric ischemia, intussusception,hernia, testicular torsion. Medical Records Attestation: I reviewed the patient's medical records. Home Medications Current Medication List: was personally reviewed by me Laboratory Data Attestation: I reviewed the patient's lab results. Result diagrams: 09/15/20 11:08 09/15/20 11:30 Lab Results 09/15/20 09/15/20 09/15/20 Range/Units 11:08 11:08 11:10 WBC 15.56 H (4.8-10.8) K/uL RBC 4.02 L (4.7-6.1) M/uL Hgb 12.7 L (14.0-18.0) g/dL Hct 37.5 L (42-52) % MCV 93.3 (80-100) fL MCH 31.6 (25-34) pg MCHC 33.9 (32-36) g/dL RDW Std Deviation 51.5 H (36.4-46.3) fL RDW Coeff of [place] 15.0 H (11.5-14.5) % Plt Count 243 (130-400) K/uL MPV 9.7 (7.4-10.4) fL Immature Gran % (Auto) 0.1 % Neut % (Auto) 83.5 % Lymph % (Auto) 6.3 % [place] % (Auto) 8.9 % Eos % (Auto) 1.0 % Baso % (Auto) 0.2 % Neut # (Auto) 13.00 H (1.4-6.5) K/uL Lymph # (Auto) 0.98 L (1.2-3.4) K/uL [place] # (Auto) 1.38 H (0.11-0.59) K/uL Eos # (Auto) 0.15 (0-0.5) K/uL Baso # (Auto) 0.03 (0-0.2) K/uL Immature Gran # (Auto) 0.02 (0.00-0.02) K/uL PT 10.7 (9.0-12.0) Seconds INR 1.1 (0.9-1.1) Sodium (136-145) mmol/L Potassium (3.5-5.1) mmol/L Chloride (98-107) mmol/L Carbon Dioxide (21-32) mmol/L Anion Gap (3-11) BUN (7-18) mg/dl Creatinine (0.6-1.4) mg/dl Est Cr Clr Drug Dosing ml/min Est GFR ( Amer) Est GFR (Non-Af Amer) BUN/Creatinine Ratio (10-20) Glucose (70-99) mg/dl Calcium (8.5-10.1) mg/dl Total Bilirubin (0.2-1) mg/dl AST (15-37) U/L ALT (12-78) U/L Alkaline Phosphatase (45-117) U/L Total Protein (6.4-8.2) gm/dl Albumin (3.4-5.0) gm/dl Globulin (2.5-4.0) gm/dl Albumin/Globulin Ratio (0.9-2) Lipase (73-393) U/L Urine Color Yellow Urine Appearance Turbid A (Clear) Urine pH 5.5 (4.5-7.5) Ur Specific [place] 1.022 (1.000-1.030) Urine Protein Trace H (Negative) Urine Glucose (UA) Negative (Negative) Urine Ketones Negative (Negative) Urine Blood 3+ H (Negative) Urine Nitrite Negative (Negative) Urine Bilirubin Negative (Negative) Urine Urobilinogen Negative (Negative) Ur Leukocyte Esterase 3+ H (Negative) Urine WBC (Auto) >30 H (0-5) /hpf Urine RBC (Auto) 0-4 (0-4) /hpf U Hyaline Cast (Auto) 0 (0-5) /lpf U Epithel Cells (Auto) 5-10 H (0-5) /lpf Urine Bacteria (Auto) 4+ H (Negative) Calcium Oxalate Crystal Present A (None Prsent) Urine Yeast Not Reportable COVID-19 Eval Order 09/15/20 09/15/20 Range/Units 11:30 13:30 WBC (4.8-10.8) K/uL RBC (4.7-6.1) M/uL Hgb (14.0-18.0) g/dL Hct (42-52) % MCV (80-100) fL MCH (25-34) pg MCHC (32-36) g/dL RDW Std Deviation (36.4-46.3) fL RDW Coeff of Markell (11.5-14.5) % Plt Count (130-400) K/uL MPV (7.4-10.4) fL Immature Gran % (Auto) % Neut % (Auto) % Lymph % (Auto) % [place] % (Auto) % Eos % (Auto) % Baso % (Auto) % Neut # (Auto) (1.4-6.5) K/uL Lymph # (Auto) (1.2-3.4) K/uL [place] # (Auto) (0.11-0.59) K/uL Eos # (Auto) (0-0.5) K/uL Baso # (Auto) (0-0.2) K/uL Immature Gran # (Auto) (0.00-0.02) K/uL PT (9.0-12.0) Seconds INR (0.9-1.1) Sodium 140 (136-145) mmol/L Potassium 3.9 (3.5-5.1) mmol/L Chloride 109 H (98-107) mmol/L Carbon Dioxide 26 (21-32) mmol/L Anion Gap 5.0 (3-11) BUN 25 H (7-18) mg/dl Creatinine 0.74 (0.6-1.4) mg/dl Est Cr Clr Drug Dosing 91.5 ml/min Est GFR ( Amer) 106.8 Est GFR (Non-Af Amer) 92.2 BUN/Creatinine Ratio 34.0 H (10-20) Glucose 118 H (70-99) mg/dl Calcium 8.9 (8.5-10.1) mg/dl Total Bilirubin 0.5 (0.2-1) mg/dl AST 8 L (15-37) U/L ALT 21 (12-78) U/L Alkaline Phosphatase 117 (45-117) U/L Total Protein 6.3 L (6.4-8.2) gm/dl Albumin 2.8 L (3.4-5.0) gm/dl Globulin 3.5 (2.5-4.0) gm/dl Albumin/Globulin Ratio 0.8 L (0.9-2) Lipase 51 L (73-393) U/L Urine Color Urine Appearance (Clear) Urine pH (4.5-7.5) Ur Specific [place] (1.000-1.030) Urine Protein (Negative) Urine Glucose (UA) (Negative) Urine Ketones (Negative) Urine Blood (Negative) Urine Nitrite (Negative) Urine Bilirubin (Negative) Urine Urobilinogen (Negative) Ur Leukocyte Esterase (Negative) Urine WBC (Auto) (0-5) /hpf Urine RBC (Auto) (0-4) /hpf U Hyaline Cast (Auto) (0-5) /lpf U Epithel Cells (Auto) (0-5) /lpf Urine Bacteria (Auto) (Negative) Calcium Oxalate Crystal (None Prsent) Urine Yeast COVID-19 Eval Order [facility] at [facility] Imaging Data Radiologist's Impression: Abdomen/Pelvis CT 09/15/20 11:00 CT OF THE ABDOMEN AND PELVIS WITHOUT CONTRAST CLINICAL HISTORY: Incarcerated right inguinal hernia/ COMPARISON STUDY: CT of the abdomen and pelvis July 17, 2015. TECHNIQUE: Axial images of the abdomen and pelvis were obtained without IV contrast. Images were reviewed in the axial, sagittal, and coronal planes. Automated exposure control was utilized for the study. A dose lowering technique was utilized adhering to the principles of ALARA. FINDINGS: Imaged portions of the lower chest demonstrate moderate emphysema. There is lingular and left lower lobe airspace opacity. Evaluation of the abdomen and pelvis is suboptimal on this unenhanced examination. No pneumatosis, free air or portal venous gas is present. Unenhanced images of the liver, spleen, adrenal glands, right kidney and pancreas are unremarkable. A water atte nuation left renal lesion favors a cyst. There is a 4 mm calculus within the upper pole of the left kidney. There is no hydronephrosis. Bladder is mildly distended. Bladder wall thickening is probably chronic. Numerous small bladder calculi measure up to 4 mm renal calculi. Multiple small bladder calculi. No ureteral calculi or hydronephrosis.. A 6.3 cm density projects over the base of the bladder. This likely reflects the prostate gland. There is a large amount of stool within the rectum with mild rectal wall thickening. There is no adjacent infiltration. Note is made of a fat-containing right inguinal hernia. There is also fluid within the right hernia sac. There are no bowel loops within the right inguinal hernia sac. There may be a right-sided hydrocele. Note is made of moderate scrotal infiltration which extends superiorly to the lower pelvis. This is suboptimally assessed on this unenhanced exam. No soft tissue gas is identified. IMPRESSION: 1. Small fat and fluid containing right inguinal hernia which does not contain bowel. Moderate scrotal infiltration extending superiorly to the level of the pelvis favors an infectious process with cellulitis. No soft tissue gas. Possible right hydrocele, suboptimally assessed by CT. 2. Large amount of stool within the rectum. Mild rectal wall thickening without adjacent infiltration. The findings suggest fecal impaction. No bowel obstruction. 3. Mass-like density which indents the base of the bladder. This likely reflects the prostate gland. A bladder mass is considered much less likely however correlation with urine cytology and urinalysis is recommended. If abnormal, cystoscopy is recommended. 4. Left lower lobe and lingular airspace opacity which could reflect an infectious process or atelectasis. Emphysema. 5. Small left renal calculus. Small bladder calculi. No ureteral calculi or hydronephrosis. ACT 112: Negative or not required by law. Electronically signed by: Bigg Rudolph M.D. 09/15/2020 12:25 PM MDM Narrative Patient presents with right groin pain likely related to an incarcerated inguinal hernia into the scrotum. Exam reveals redness and tenderness and swelling in that right groin and scrotum area. Vital signs are stable. The patient's blood work as noted above. He has a white blood cell count of 15.5. The BUN is 25. EKG shows a normal sinus rhythm at a rate of 65. Urine is suggestive of infection. CT scan shows a cellulitis of the scrotum. The patient was treated with IV Zosyn as well as IV fluids. He will be seen by the hospitalist for further patient evaluation and care. Impression & Plan Cellulitis of scrotum, Acute UTI Discharge Plan Visit Data Chief Complaint: Testicular Pain ED Provider: Marcio Sparks Discharge Problem: Cellulitis of scrotum, Acute UTI Patient Disposition: Being Evaluated by Hospitalist Forms Stand Alone Forms: [facility] Prescriptions Prescriptions: No Action multivitamin tablet 1 tab PO QAM RF: 0 lisinopril 5 mg tablet 5 mg PO DAILY Qty: 30 RF: 0 acetaminophen [Tylenol] 325 mg Tablet 325 mg PO Q4H PRN (Reason: Pain) RF: 0 amiodarone 200 mg tablet 200 mg PO QAM RF: 0 aspirin 81 mg Tablet,Delayed Release (Dr/Ec) 81 mg PO DAILY RF: 0 acetaminophen [Acetaminophen Extra Strength] 500 mg Tablet 500 mg PO QID RF: 0 tamsulosin 0.4 mg capsule 0.4 mg PO QPM RF: 0 ropinirole 0.5 mg tablet 0.5 mg PO QID RF: 0 docusate sodium 100 mg Capsule 100 mg PO BID RF: 0 gabapentin 100 mg capsule 100 mg PO TID RF: 0 polyethylene glycol 3350 [Miralax] 17 gram/dose Powder 17 g PO TUTHSA RF: 0 fluoxetine 20 mg capsule 20 mg PO QAM RF: 0 finasteride 5 mg tablet 5 mg PO QAM RF: 0 cholecalciferol (vitamin D3) 25 mcg (1,000 unit) capsule 25 mcg PO DAILY RF: 0 chlorhexidine gluconate 0.12 % mouthwash 1 applic PO TID RF: 0 Eliquis 5 mg tablet 5 mg PO BID RF: 0 atorvastatin 80 mg tablet 80 mg PO QAM RF: 0 Tucker 7-7-1.5 gram Powder In Packet 1 ea PO BID RF: 0 clopidogrel 75 mg tablet 75 mg PO DAILY RF: 0 metoprolol tartrate 25 mg tablet 12.5 mg PO DAILY RF: 0 Referrals Referrals: Yanni Ferreira [Primary Care Provider] -
[2020-09-15 11:36] LABS: Appearance Urine Turbid (Clear); Bacteria Urine Automated 4+ (Negative); Bilirubin Urine Negative (Negative); Blood Urine 3+ (Negative); Cast Urine Automated 0 /lpf (0-5); Color Urine Yellow; Glucose Urine UA Negative (Negative); Ketones Urine Negative (Negative); Leukocyte Esterase Urine 3+ (Negative); Nitrite Urine Negative (Negative); Protein Urine Trace (Negative); Specific Gravity Urine 1.022 (1.000-1.030); Urobilinogen Urine Negative (Negative); WBC Urine Automated >30 /hpf (0-5); pH Urine 5.5 (4.5-7.5)
[2020-09-15 11:41] LABS: Basophils # (auto) 0.03 K/uL (0-0.2); Basophils % (auto) 0.2 %; Eosinophils # (auto) 0.15 K/uL (0-0.5); Hematocrit (blood only) 37.5 % (42-52); Hemoglobin 12.7 g/dL (14.0-18.0); Immature Granulocytes # (auto) 0.02 K/uL (0.00-0.02); Immature Granulocytes % (auto) 0.1 %; Lymphocytes # (auto) 0.98 K/uL (1.2-3.4); Lymphocytes % (auto) 6.3 %; Mean Corpuscular Hemoglobin 31.6 pg (25-34); Mean Corpuscular Hgb Conc 33.9 g/dL (32-36); Mean Corpuscular Volume 93.3 fL (80-100); Mean Platelet Volume 9.7 fL (7.4-10.4); Monocytes # (auto) 1.38 K/uL (0.11-0.59); Monocytes % (auto) 8.9 %; Neutrophils % (auto) 83.5 %; Platelet Count 243 K/uL (130-400); RDW Standard Deviation 51.5 fL (36.4-46.3); Red Blood Count 4.02 M/uL (4.7-6.1); White Blood Count 15.56 K/uL (4.8-10.8)
[2020-09-15 11:51] LABS: Calcium Oxalate Crystals Urine Present (None Prsent); RBC Urine Automated 0-4 /hpf (0-4)
[2020-09-15 11:51] LABS: INR 1.1 (0.9-1.1); Prothrombin Time 10.7 Seconds (9.0-12.0)
[2020-09-15 11:59] LABS: Albumin Level 2.8 gm/dl (3.4-5.0); Calcium 8.9 mg/dl (8.5-10.1); Creatinine Clr Calc Pharmacy 91.5 ml/min; Est GFR (African American) 106.8; Est GFR (Non-African American) 92.2; Potassium 3.9 mmol/L (3.5-5.1)
[2020-09-15 12:02] LABS: Albumin Globulin Ratio 0.8 (0.9-2); Bilirubin,Total 0.5 mg/dl (0.2-1); Globulin 3.5 gm/dl (2.5-4.0); Total Protein 6.3 gm/dl (6.4-8.2)
--- NOTE | 2020-09-15 12:27 | CT Scan Report ---
CT OF THE ABDOMEN AND PELVIS WITHOUT CONTRAST CLINICAL HISTORY: Incarcerated right inguinal hernia/ COMPARISON STUDY: CT of the abdomen and pelvis July 17, 2015. TECHNIQUE: Axial images of the abdomen and pelvis were obtained without IV contrast. Images were revi ewed in the axial, sagittal, and coronal planes. Automated exposure control was utilized for the riaz dy. A dose lowering technique was utilized adhering to the principles of ALARA. FINDINGS: Imaged portions of the lower chest demonstrate moderate emphysema. There is lingular and le ft lower lobe airspace opacity. Evaluation of the abdomen and pelvis is suboptimal on this unenhanced examination. No pneumatosis, free air or portal venous gas is present. Unenhanced images of the live r, spleen, adrenal glands, right kidney and pancreas are unremarkable. A water attenuation left renal lesion favors a cyst. There is a 4 mm calculus within the upper pole of the left kidney. There is no hydronephrosis. Bladder is mildly distended. Bladder wall thickening is probably chronic. Numerous s mall bladder calculi measure up to 4 mm renal calculi. Multiple small bladder calculi. No ureteral ca lculi or hydronephrosis.. A 6.3 cm density projects over the base of the bladder. This likely reflect s the prostate gland. There is a large amount of stool within the rectum with mild rectal wall thicke иван. There is no adjacent infiltration. Note is made of a fat-containing right inguinal hernia. Ther e is also fluid within the right hernia sac. There are no bowel loops within the right inguinal herni a sac. There may be a right-sided hydrocele. Note is made of moderate scrotal infiltration which exte nds superiorly to the lower pelvis. This is suboptimally assessed on this unenhanced exam. No soft ti ssue gas is identified. IMPRESSION: 1. Small fat and fluid containing right inguinal hernia which does not contain bowel. Moderate scrota l infiltration extending superiorly to the level of the pelvis favors an infectious process with cell ulitis. No soft tissue gas. Possible right hydrocele, suboptimally assessed by CT. 2. Large amount of stool within the rectum. Mild rectal wall thickening without adjacent infiltration . The findings suggest fecal impaction. No bowel obstruction. 3. Mass-like density which indents the base of the bladder. This likely reflects the prostate gland. A bladder mass is considered much less likely however correlation with urine cytology and urinalysis is recommended. If abnormal, cystoscopy is recommended. 4. Left lower lobe and lingular airspace opacity which could reflect an infectious process or atelect asis. Emphysema. 5. Small left renal calculus. Small bladder calculi. No ureteral calculi or hydronephrosis. ACT 112: Negative or not required by law. Electronically signed by: Bigg Rudolph M.D. 09/15/2020 12:25 PM
--- NOTE | 2020-09-15 14:38 | History & Physical Report ---
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 Denies fever/chills, N/V, urinary symptoms In ER pt afebrile, P: 67, R: 20, BP: 135/89, 92% on RA. WBC: 15 CT ABD/PELVIS: fat-containing right inguinal hernia. There is also fluid within the right hernia sac. There are no bowel loops within the right inguinal hernia sac. There may be a right-sided hydrocele. Note is made of moderate scrotal infiltration which extends superiorly to the lower pelvis. This is suboptimally assessed on this unenhanced exam. No soft tissue gas is identified. -In ER given Zosyn and IVF -Blood cultures pending (obtained after IV antibiotics) -Lactate-WNL at 1.7 -Zosyn, doxycycline -Gentle IVF -Obtain Scrotal ultrasound -Urology consult -CBC, BMP in a.m. (2) UTI (urinary tract infection): UA consistent with infection. Patient denies urinary symptoms -Urine culture pending -On Zosyn as above (3) Abnormal CT scan: CT ABD/PELVIS: Mass-like density which indents the base of the bladder. This likely reflects the prostate gland. A bladder mass is considered much less likely Left lower lobe and lingular airspace opacity which could reflect an infectious process or atelectasis. -Urology consult regarding possible bladder mass vs prostate gland -Pt with no increased cough, no SOB or CP or fever or chills. Pulse ox 92-94% on RA. Pt on Zosyn as above. (4) Pressure ulcer of left foot: Present upon admission -Wound nurse consult (5) CVA (cerebral vascular accident): Residual left hemiplegia, dysarthria -Continue Plavix, atorvastatin, aspirin (6) CAD (coronary artery disease): Denies chest pain, shortness of breath -Continue aspirin, metoprolol, lisinopril, atorvastatin (7) Atrial fibrillation: On Eliquis -Continue metoprolol, amiodarone, Eliquis (8) History of pulmonary embolism: History of PE, DVT in 11/2019 -Continue Eliquis (9) HTN (hypertension): -Continue lisinopril, metoprolol (10) Systolic CHF: Echo 12/06/2019: EF: 45% No signs of fluid overload load (11) Benign prostatic hyperplasia with urinary obstruction: -Continue finasteride, tamsulosin (12) Depression: -Continue fluoxetine (13) RLS (restless legs syndrome): -Continue ropinirole DVT Prophylaxis -On Eliquis Full code as per discussion with pt Follows with Dr Daniel at [facility] for routine care Pt was seen and care coordinated with Dr Yepez. 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 Patient is unsure when symptoms started, reports been swollen for "a while", however reports past couple days with right groin pain. He is on sure when redness started. Denies any known injury or trauma. History of hernia repair years ago. Denies hematuria, urinary frequency, dysuria, urinary retention. Patient reports chronic constipation, he reports is not placed on toilet at senior living often so he often holds his BMs. Denies abdominal pain. Denies any known fever or chills. Patient reports chronic intermittent slight cough at baseline, denies any worsening. Denies any shortness of breath or chest pain. Denies diaphoresis, N/V/D, KENDALL, dizziness, syncope, vision changes, neck pain, orthopnea, palpitations, sore throat, choking, otalgia, rhinorrhea, paresthesias, increased weakness, extremity edema, other rashes. Allergies Allergy/AdvReac Type Severity Reaction Status Date / Time No Known Allergies Allergy Verified 09/15/20 11:35 Home Medications Medication Instructions Recorded Confirmed Type multivitamin 1 tab PO QAM 11/03/18 09/15/20 History lisinopril 5 mg PO DAILY #30 tab 12/04/19 09/15/20 Rx acetaminophen [Acetaminophen Extra 500 mg PO QID 09/15/20 09/15/20 History Strength] acetaminophen [Tylenol] 325 mg PO Q4H PRN 09/15/20 09/15/20 History amiodarone 200 mg PO QAM 09/15/20 09/15/20 History apixaban [Eliquis] 5 mg PO BID 09/15/20 09/15/20 History qgunfaer-nrvvjwznp-xqrvmay HMB 1 ea PO BID 09/15/20 09/15/20 History [Tucker] aspirin 81 mg PO DAILY 09/15/20 09/15/20 History atorvastatin 80 mg PO QAM 09/15/20 09/15/20 History chlorhexidine gluconate 1 applic PO TID 09/15/20 09/15/20 History cholecalciferol (vitamin D3) 25 mcg PO DAILY 09/15/20 09/15/20 History clopidogrel 75 mg PO DAILY 09/15/20 09/15/20 History docusate sodium 100 mg PO BID 09/15/20 09/15/20 History finasteride 5 mg PO QAM 09/15/20 09/15/20 History fluoxetine 20 mg PO QAM 09/15/20 09/15/20 History gabapentin 100 mg PO TID 09/15/20 09/15/20 History metoprolol tartrate 12.5 mg PO DAILY 09/15/20 09/15/20 History polyethylene glycol 3350 [Miralax] 17 g PO TUTHSA 09/15/20 09/15/20 History ropinirole 0.5 mg PO QID 09/15/20 09/15/20 History tamsulosin 0.4 mg PO QPM 09/15/20 09/15/20 History Past Med/Surg History Medical History (Updated 09/15/20 @ 14:54 by Gabrielel Navarro PA-C) Atrial fibrillation Benign prostatic hyperplasia with urinary obstruction Bladder calculi BPH (benign prostatic hypertrophy) CAD (coronary artery disease) COPD (chronic obstructive pulmonary disease) CVA (cerebral vascular accident) 11/2019 - Residual Left hemiparesis, dysarthria Depression Hematuria History of pulmonary embolism 11/2019 HTN (hypertension) Hypercholesterolemia RLS (restless legs syndrome) Systolic CHF UTI (urinary tract infection) Surgical History History of hernia repair S/P drug eluting coronary stent placement S/P PTCA (percutaneous transluminal coronary angioplasty) Family History Denies family history of Ovarian cancer Prostate cancer Myocardial infarction Breast cancer Colorectal cancer Social History Smoking Status: Former smoker Tobacco Type: Cigarettes Hx Alcohol Use: No Hx Substance Use: No Preferred Language: Bengali Communication Ability: Effective Environmental Protection Geologist Required: No Beliefs That Will Affect Care: None marital status: Current Living Situation: Care Home current occupational status: employed and retired current occupation: [employer] Other Information That Helps Us Care for You: No Feels Safe at Home: Yes Safety Concerns: Feels Safe At This Time Dental Care, Regularly: No Physical Activity Frequency: Does not Exercise Assistive Devices: None Review of Systems Review of Systems: All systems reviewed & are unremarkable except as noted in HPI & below Physical Exam Physical Exam: General: no distress, thin elderly male Head: normocephalic, atraumatic Eyes: conjunctiva non-injected, anicteric ENT: normal inspection external ears, nose, mucous membranes moist Neck: supple, trachea midline Lungs: clear, no respiratory distress, no wheezing/rhonchi/rales CV: RRR, no murmur, no pretibial edema Abd: normal BS, soft, +tenderness to palpation RLQ, suprapubic, LLQ Groin: +significant erythema and edema of right scrotum, penis extending to suprapubic region (pt only allows limited visualization, did not visualize left scrotum) +tenderness and warmth to light palpation right scrotum Ext: no cyanosis, no calf tenderness; left sided weakness -chronic from prior CVA Neuro: A&O x 3, no focal deficits noted, normal affect Skin: warm, dry, left heel pressure ulcer with scab Results & Data Results & Data ([facility]) Vital Signs (Past 12 Hours) Vital Signs Temp Pulse Resp BP Pulse Ox 09/15/20 13:01 63 21 141/68 H 94 09/15/20 13:00 64 19 91 09/15/20 12:30 59 L 19 140/54 L 90 09/15/20 12:01 62 22 139/64 91 09/15/20 12:00 60 22 87 L 09/15/20 11:30 63 24 90 09/15/20 11:00 67 31 H 124/66 91 09/15/20 10:31 65 22 90 09/15/20 10:30 65 22 116/51 L 90 09/15/20 10:01 69 24 91 09/15/20 10:00 69 26 H 123/57 L 92 09/15/20 09:58 36.7 C 72 30 H 135/89 92 09/15/20 09:56 70 30 H 93 09/15/20 09:49 72 29 H 135/89 92 09/15/20 09:45 67 20 92 Laboratory Results Short CBC 09/15/20 Range/Units 11:08 WBC 15.56 H (4.8-10.8) K/uL Hgb 12.7 L (14.0-18.0) g/dL Hct 37.5 L (42-52) % Plt Count 243 (130-400) K/uL BMP 09/15/20 11:30 Sodium 140 Potassium 3.9 Chloride 109 H Carbon Dioxide 26 BUN 25 H Creatinine 0.74 Glucose 118 H Calcium 8.9 Liver Function 09/15/20 Range/Units 11:30 Total Bilirubin 0.5 (0.2-1) mg/dl AST 8 L (15-37) U/L ALT 21 (12-78) U/L Alkaline Phosphatase 117 (45-117) U/L Albumin 2.8 L (3.4-5.0) gm/dl Urine 09/15/20 Range/Units 11:10 Urine Color Yellow Urine Appearance Turbid A (Clear) Urine pH 5.5 (4.5-7.5) Ur Specific [place] 1.022 (1.000-1.030) Urine Protein Trace H (Negative) Urine Glucose (UA) Negative (Negative) Diagnostic Findings Abdomen/Pelvis CT 09/15/20 11:00 CT OF THE ABDOMEN AND PELVIS WITHOUT CONTRAST CLINICAL HISTORY: Incarcerated right inguinal hernia/ COMPARISON STUDY: CT of the abdomen and pelvis July 17, 2015. TECHNIQUE: Axial images of the abdomen and pelvis were obtained without IV contrast. Images were reviewed in the axial, sagittal, and coronal planes. Automated exposure control was utilized for the study. A dose lowering technique was utilized adhering to the principles of ALARA. FINDINGS: Imaged portions of the lower chest demonstrate moderate emphysema. There is lingular and left lower lobe airspace opacity. Evaluation of the abdomen and pelvis is suboptimal on this unenhanced examination. No pneumatosis, free air or portal venous gas is present. Unenhanced images of the liver, spleen, adrenal glands, right kidney and pancreas are unremarkable. A water attenuation left renal lesion favors a cyst. There is a 4 mm calculus within the upper pole of the left kidney. There is no hydronephrosis. Bladder is mildly distended. Bladder wall thickening is probably chronic. Numerous small bladder calculi measure up to 4 mm renal calculi. Multiple small bladder calculi. No ureteral calculi or hydronephrosis.. A 6.3 cm density projects over the base of the bladder. This likely reflects the prostate gland. There is a large amount of stool within the rectum with mild rectal wall thickening. There is no adjacent infiltration. Note is made of a fat-containing right inguinal hernia. There is also fluid within the right hernia sac. There are no bowel loops within the right inguinal hernia sac. There may be a right-sided hydrocele. Note is made of moderate scrotal infiltration which extends superiorly to the lower pelvis. This is suboptimally assessed on this unenhanced exam. No soft tissue gas is identified. IMPRESSION: 1. Small fat and fluid containing right inguinal hernia which does not contain bowel. Moderate scrotal infiltration extending superiorly to the level of the pelvis favors an infectious process with cellulitis. No soft tissue gas. Possible right hydrocele, suboptimally assessed by CT. 2. Large amount of stool within the rectum. Mild rectal wall thickening without adjacent infiltration. The findings suggest fecal impaction. No bowel obstruction. 3. Mass-like density which indents the base of the bladder. This likely reflects the prostate gland. A bladder mass is considered much less likely however correlation with urine cytology and urinalysis is recommended. If abnormal, cystoscopy is recommended. 4. Left lower lobe and lingular airspace opacity which could reflect an infectious process or atelectasis. Emphysema. 5. Small left renal calculus. Small bladder calculi. No ureteral calculi or hydronephrosis. ACT 112: Negative or not required by law. Electronically signed by: Bigg Rudolph M.D. 09/15/2020 12:25 PM Code Status & VTE Plan VTE Prophylaxis Plan VTE Prophylaxis will be ordered: Yes Supervising Physician Co-Signing Physician Notes Care coordinated with Gabrielle Navarro PA-C. Agree with above note. Patient seen and examined. Please refer to her notes for full details. Vital signs reviewed. Physical exam: General exam: Alert and oriented. Not in acute distress. CVS: S1 and S2 heard, regular rate and rhythm, no murmurs. RS: Clear to auscultation, no wheezing or crackles. ABD: Soft, bowel sounds present, nontender, no distention. INSTRUCTIONAL SYSTEMS SPECIALIST: Left sided weakness EXT: No edema, no erythema. Scrotal erythema with induration and tenderness Labs: Reviewed. Assessment and plan: 70[facility] cva with left sided weakness, a fib, CAd, Systolic chf, BPH presents with ongoing pain in his scrotum. Patient says having pain in scrotum since about 2 weeks. Any touch causes severe pain. No burning micturition. Constipated. Denies any abdominal pain. No fevrs. No chest pain or sob. Currently h emodynamics stable a/p Scrotum cellulitis uti on iv zosun and doxy gentle fluids Follow scrotal US Urology consulted Questionable bladder mass vs prostrate gland on ct scan await urology input. Constipation stool softners Hx of chronic systolic chf Ef 45% on echo 11/2019 not on diuretics on lisinopril and b bloker on gentle fluids monitor for volume overload a fib on amiodarone, metoprolol and eliquis monitor pt/ot prior to discharge Other diagnosis and plan of care as per Gabrielle Navarro PA-C. Suleman trent MD. (1) CAD (coronary artery disease) Associated angina: without angina Coronary Disease-Associated Artery/Lesion type: [place] artery [place] vs. transplanted heart: [place] heart Qualified Code(s): I25.10 - Atherosclerotic heart disease of [place] coronary artery without angina pectoris (2) HTN (hypertension) Hypertension type: essential hypertension Qualified Code(s): I10 - Essential (primary) hypertension
[2020-09-15 14:59] LABS: Influenza A virus by PCR Negative (Neg); Influenza B virus by PCR Negative (Neg); RSV by PCR Negative (Neg); SARS CoV2 RNA(COVID-19) InHosp NEGATIVE (Negative)
--- NOTE | 2020-09-15 15:34 | Electrocardiogram Report ---
Test Reason : Blood Pressure : / mmHG Vent. Rate : 065 BPM Atrial Rate : 065 BPM P-R Int : 188 ms QRS Dur : 102 ms QT Int : 458 ms P-R-T Axes : 033 000 073 degrees QTc Int : 476 ms Normal sinus rhythm Diffuse Nonspecific T wave abnormality Abnormal ECG When compared with ECG of 06-DEC-2019 07:56, Sinus rhythm has replaced Atrial fibrillation Vent. rate has decreased BY [address] no longer depressed in Inferior leads Confirmed by Zack Vasquez ([id number]) on 09/15/2020 3:34:21 PM Referred By: Yanni Hood Confirmed By:Zack Vasquez
[2020-09-15] MEDS ORDERED: ACETAMINOPHEN 325 MG TAB PO PRN (16:45)
[2020-09-15] MEDS ORDERED: ACETAMINOPHEN HOME PACK 500 MG TABLET PO SCH (17:00)
[2020-09-15] MEDS ORDERED: SODIUM CHLORIDE 0.9% 1000ML 1,000 ML IV SCH (17:30)
[2020-09-15] MEDS: PIPERACILLIN/TAZOBACTAM 3.375 GM in DEXTROSE 5% 100 ML IV SCH (18:29)
[2020-09-15] MEDS: rOPINIRole HCL 0.25 MG TABLET PO SCH ×2 (18:29→21:30)
[2020-09-15] MEDS: POLYETHYLENE (MIRALAX) 17 GM PACK PO SCH (18:30)
[2020-09-15] MEDS: DOXYCYCLINE HYCLATE 100 MG in DEXTROSE 5% 100 ML IV SCH (20:33)
--- NOTE | 2020-09-15 20:54 | CT Scan Report ---
CT SCAN OF THE BRAIN WITHOUT IV CONTRAST CLINICAL HISTORY: Change in mental status. COMPARISON STUDY: CT of the brain dated 12/06/2019. TECHNIQUE: Unenhanced axial CT scan of the brain is performed from the vertex to the skull base. A do se lowering technique was utilized adhering to the principles of ALARA. The patient was scanned twice due to motion artifact. CT DOSE: 1467.65 mGy.cm FINDINGS: Brain parenchyma: Right MCA territory encephalomalacia is consistent with a remote infarct. There are age-related involutional changes noting mild subcortical and periventricular microangiopathic mcginnis e. Wallerian degeneration is noted in the right aspect of the zohaib. There is no hemorrhage, mass effe ct, or evidence of acute territorial ischemia by CT criteria. Caraballo-white matter differentiation is pr eserved. No extra-axial fluid collection is seen. Ventricles, sulci, cisterns: Prominent secondary to involutional change. Intracranial vasculature: There is atherosclerotic calcification of the cavernous carotid and vertebr al arteries. Calvarium: Unremarkable. Sinuses and mastoids: The paranasal sinuses are clear. The mastoid air cells are well pneumatized. Orbits: The bony orbits are grossly intact. There are bilateral ocular lens implants. IMPRESSION: 1. There is no hemorrhage, mass effect, or evidence of acute territorial ischemia by CT criteria. 2. Remote right MCA territory infarct. ACT 112: Negative or not required by law. Electronically signed by: Driss Villalba M.D. 09/15/2020 8:53 PM
[2020-09-15] MEDS: GABAPENTIN 100 MG CAP PO SCH (21:30)
[2020-09-15] MEDS: APIXABAN 5 MG TABLET PO SCH (21:30)
[2020-09-15] MEDS: DOCUSATE SODIUM 100 MG CAP PO SCH (21:30)
[2020-09-15] MEDS: TAMSULOSIN HCL 0.4 MG CAP PO SCH (21:30)
[2020-09-15] MEDS: CHLORHEXIDINE GLUCONATE 0.12% 480 ML MT SCH (21:34)
--- NOTE | 2020-09-15 21:34 | Ultrasound Report ---
ULTRASOUND TESTES AND SCROTUM CLINICAL HISTORY: Scrotal edema COMPARISON STUDY: No priors. TECHNIQUE: Real-time, grayscale, and color Doppler sonography of the testes and scrotum is performed. Images are reviewed in the transverse and longitudinal planes. FINDINGS: The testes are normal in size and heterogeneous in echotexture. The right testis measures 4.7 x 3.0 x 2.8 cm and the left testis measures 4.9 x 1.8 x 2.3 cm. No intratesticular mass is seen. The right t estis appears hyperemic as compared to the left. Normal Doppler waveforms are identified in both test es. The right epididymal head is enlarged and heterogeneous, measuring 2.5 cm in length. The right epidid ymis is hyperemic on color imaging. The left epididymal head is normal in appearance and measures 1.0 cm in length. Bilateral epididymal head cysts measure up to 6 mm. There is a 3.9 x 2.1 x 3.3 cm comp hayley cystic structure identified superior to the right testis adjacent to the epididymis. There is a moderate complex right-sided hydrocele. No hydrocele is seen on the left and no varicocele is identified. IMPRESSION: 1. Findings are consistent with right-sided epididymoorchitis. 2. The testes are heterogeneous in echotexture with no mass lesion identified. 3. There is a moderate and complex right-sided hydrocele. 4. There is a 3.9 cm complex cystic structure identified superior to the right testis and adjacent to the epididymis. This may represent a complex spermatocele. Infection is not excluded. Follow-up with urology is recommended, and a 3 month follow-up ultrasound is recommended for reassessment. ACT 112: Negative or not required by law. Electronically signed by: Driss Villalba M.D. 09/15/2020 9:32 PM
[2020-09-16] MEDS ORDERED: ACETAMINOPHEN 1000 MG/100 ML IV IV ONE (01:53)
[2020-09-16] MEDS ORDERED: ACETAMINOPHEN 1,000 MG/100 ML VIAL IV ONE (02:00)
[2020-09-16] MEDS: PIPERACILLIN/TAZOBACTAM 3.375 GM in DEXTROSE 5% 100 ML IV SCH ×3 (02:54→17:37)
[2020-09-16 06:28] LABS: Basophils # (auto) 0.02 K/uL (0-0.2); Basophils % (auto) 0.1 %; Eosinophils # (auto) 0.26 K/uL (0-0.5); Eosinophils % (auto) 1.8 %; Hemoglobin 12.5 g/dL (14.0-18.0); Immature Granulocytes # (auto) 0.03 K/uL (0.00-0.02); Immature Granulocytes % (auto) 0.2 %; Lymphocytes # (auto) 1.32 K/uL (1.2-3.4); Lymphocytes % (auto) 9.2 %; Mean Corpuscular Hemoglobin 30.6 pg (25-34); Mean Corpuscular Hgb Conc 32.9 g/dL (32-36); Mean Corpuscular Volume 92.9 fL (80-100); Mean Platelet Volume 10.2 fL (7.4-10.4); Monocytes # (auto) 1.13 K/uL (0.11-0.59); Monocytes % (auto) 7.8 %; Neutrophils # (auto) 11.66 K/uL (1.4-6.5); Neutrophils % (auto) 80.9 %; Platelet Count 267 K/uL (130-400); RDW Coefficient of Variation 15.1 % (11.5-14.5); RDW Standard Deviation 51.2 fL (36.4-46.3); Red Blood Count 4.09 M/uL (4.7-6.1); White Blood Count 14.42 K/uL (4.8-10.8)
[2020-09-16 06:56] LABS: BUN Creatinine Ratio 23.8 (10-20); Calcium 8.9 mg/dl (8.5-10.1); Creatinine Clr Calc Pharmacy 83.9 ml/min; Est GFR (African American) 99.9; Est GFR (Non-African American) 86.2; Potassium 3.6 mmol/L (3.5-5.1)
--- NOTE | 2020-09-16 08:30 | Urology Consultation ---
Date of Consultation September 16, 2020 Assessment & Plan (1) UTI (urinary tract infection): Patient with acute infection with long history of chronic issues and longtime patient of Dr. Krystian Rodriguez. Has previously had considerable episodes of gross hematuria. Has known chronic bladder outlet obstruction. Has findings on imaging which were reviewed interpreted by myself. Likely showing signs of bladder with large prostate for and chronic outlet obstruction with small bilateral stones. Patient also has likely hydrocele with possible right hernia. Concern for possible infection within hydrocele versus epididymal orchitis. Likely infection extending from urinary system into reproductive system and testicle. Patient's labs were all reviewed. Patient's imaging was reviewed interpreted as above. Please see HPI for full report. Patient complicated medical and surgical history was reviewed and summarized as above. Patient due to acute illness and delirium was overall poor historian and limited information from patient directly. Majority of information from chart review and information from primary team. Plan to continue with active management of acute illness and delirium and management of acute UTI. No surgical intervention at this time. Would keep with hydration and close monitoring as well as broad-spectrum antibiotics. Will likely need prolonged course. We will likely need outpatient follow-up with scope to assess bladder and determine source of infection with work-up and planning for management of future issues. Monitor for development of gross hematuria as patient has had issues with this in the past. We will plan for outpatient follow-up. (2) Cellulitis of scrotum: (3) Abnormal CT scan: (4) Benign prostatic hyperplasia with urinary obstruction: History of Present Illness Attending Physician: Erum Fuentes, History of Present Illness Urgent consultation for acutely ill and septic patient with UTI/Pyelo, discomfor t, and ill feelings. Patient developed sudden onset of pain in testicle and scrotum with additional pain into flank going down and radiating into groin and back in waves comes and goes. Can be severe at times. Altered mental status due to acute illness with chronic memory/underlying dementia issues. Discussed and reviewed patient's personal medical, surgical, social, and family history for any history of issues, infections, and disease. Also, discussed patient's medical/surgery history especially related to any history of urinary issues or stone disease. History was somewhat limited from patient due to mental status. At time of examination patient was completely nude and was most concerned about a recommendation for ice to help with some of the scrotal swelling. Patient is undergoing active and critical management for acute illness and is being admitted to undergo antibiotics and close monitoring. Patient has multiple medical issues with underlying comorbidities and previous vascular and CVA. Hospitalist has admitted and is undergoing observation with broad spectrum IV antibiotics. Patient's major complaint is his testicular pain. Has considerable issues with emptying as well. Urine was found to be positive. All labs have been reviewed. Imaging was reviewed interpreted by myself. Patient has significant irritation around bladder with signs of likely pyelonephritis. Small stones. Large mass first protrusion of prostate with signs of chronic obstruction. Likely hernia and hydrocele with right cellulitis. Allergies Allergy/AdvReac Type Severity Reaction Status Date / Time No Known Allergies Allergy Verified 09/15/20 11:35 Home Medications Medication Instructions Recorded Confirmed Type multivitamin 1 tab PO QAM 11/03/18 09/15/20 History lisinopril 5 mg PO DAILY #30 tab 12/04/19 09/15/20 Rx acetaminophen [Acetaminophen Extra 500 mg PO QID 09/15/20 09/15/20 History Strength] acetaminophen [Tylenol] 325 mg PO Q4H PRN 09/15/20 09/15/20 History amiodarone 200 mg PO QAM 09/15/20 09/15/20 History apixaban [Eliquis] 5 mg PO BID 09/15/20 09/15/20 History hudirtjk-regsvczju-wsvmyej HMB 1 ea PO BID 09/15/20 09/15/20 History [Tucker] aspirin 81 mg PO DAILY 09/15/20 09/15/20 History atorvastatin 80 mg PO QAM 09/15/20 09/15/20 History chlorhexidine gluconate 1 applic PO TID 09/15/20 09/15/20 History cholecalciferol (vitamin D3) 25 mcg PO DAILY 09/15/20 09/15/20 History clopidogrel 75 mg PO DAILY 09/15/20 09/15/20 History docusate sodium 100 mg PO BID 09/15/20 09/15/20 History finasteride 5 mg PO QAM 09/15/20 09/15/20 History fluoxetine 20 mg PO QAM 09/15/20 09/15/20 History gabapentin 100 mg PO TID 09/15/20 09/15/20 History metoprolol tartrate 12.5 mg PO DAILY 09/15/20 09/15/20 History polyethylene glycol 3350 [Miralax] 17 g PO TUTHSA 09/15/20 09/15/20 History ropinirole 0.5 mg PO QID 09/15/20 09/15/20 History tamsulosin 0.4 mg PO QPM 09/15/20 09/15/20 History Patient History Medical History Atrial fibrillation Benign prostatic hyperplasia with urinary obstruction Bladder calculi BPH (benign prostatic hypertrophy) CAD (coronary artery disease) COPD (chronic obstructive pulmonary disease) CVA (cerebral vascular accident) 11/2019 - Residual Left hemiparesis, dysarthria Depression Hematuria History of pulmonary embolism 11/2019 HTN (hypertension) Hypercholesterolemia RLS (restless legs syndrome) Systolic CHF UTI (urinary tract infection) Surgical History History of hernia repair S/P drug eluting coronary stent placement S/P PTCA (percutaneous transluminal coronary angioplasty) Family History Denies family history of Ovarian cancer Prostate cancer Myocardial infarction Breast cancer Colorectal cancer Social History Smoking Status: Former smoker Tobacco Type: Cigarettes Hx Alcohol Use: No Hx Substance Use: No Preferred Language: Guyanese Communication Ability: Impaired County Historian Required: No Beliefs That Will Affect Care: None marital status: Current Living Situation: Long Term current occupational status: employed and retired current occupation: [employer] Other Information That Helps Us Care for You: No Feels Safe at Home: Yes Safety Concerns: Feels Safe At This Time Dental Care, Regularly: No Physical Activity Frequency: Does not Exercise Assistive Devices: Denture - Upper and Denture - Lower Review of Systems Review of Systems: All systems reviewed & are unremarkable except as noted in HPI & below Limited due to patient illness Physical Exam Physical Exam: General: Acutely ill. Undergoing management for acute severe infection. Delirious likely due to illness. HEENT: Normocephalic Atraumatic. Inspection normal. Cranial Nerves 2-12 Grossly intact. Nares are clear. Neck is supple. Normal inspection of face. Normal inspection of neck. Neurologic: No deficits on inspection. Baseline for motor function and sensory. Psychologic: Anxious, acute delirium secondary to illness. Patient has chronic memory/dementia issues. Acute exacerbation. Respiratory: Mild labored. No use of accessory muscles. No severe dyspnea. Cardiovascular: tachycardia Skin: [place] and Dry. No rashes or visible lesions. Febrile Extremities: Moving without issues. No motor deficits on inspection Lymphatics: Mild edema Abdomen: Mildly distended. No rebound or guarding. Mild suprapubic/flank tenderness : Right side scrotum enlarged with mild irritation of skin and scrotal edema. Enlarged likely due to hydrocele versus hernia versus combination. Tender to palpation. Left also likely hydrocele but less significant and less tender. Results & Data ([facility]) Vital Signs (Past 12 Hours) Vital Signs Temp Pulse Pulse Pulse Resp BP Pulse Ox 09/16/20 07:38 36.8 C 86 18 132/65 94 09/16/20 04:29 93 H 09/16/20 02:56 36.7 C 87 20 123/57 L 90 09/15/20 22:38 36.9 C 88 18 167/69 H 90 PG Care Time/CCT Total # of Minutes Spent Total Time Spent with Patient: Total time spent is greater than 50% in coordination of care (as documented) at patient's floor/unit and/or counseling patient: Coding Level of Care Code 56844 Initial Inpt Care Lvl 3 Diagnoses UTI (urinary tract infection) N39.0 Cellulitis of scrotum N49.[address] scan R93.89 Benign prostatic hyperplasia with urinary obstruction N40.1; N13.8
[2020-09-16] MEDS: DOXYCYCLINE HYCLATE 100 MG in DEXTROSE 5% 100 ML IV SCH (08:36)
[2020-09-16] MEDS: CHOLECALCIFEROL 1,000 UNITS 25 MCG TAB PO SCH (08:40)
[2020-09-16] MEDS: GABAPENTIN 100 MG CAP PO SCH ×3 (08:40→20:10)
[2020-09-16] MEDS: DOCUSATE SODIUM 100 MG CAP PO SCH ×2 (08:40→20:10)
[2020-09-16] MEDS: FINASTERIDE 5 MG TAB PO SCH (08:41)
[2020-09-16] MEDS: FLUoxetine HCL 20 MG CAP PO SCH (08:41)
[2020-09-16] MEDS: CLOPIDOGREL BISULFATE 75 MG TAB PO SCH (08:41)
[2020-09-16] MEDS: rOPINIRole HCL 0.25 MG TABLET PO SCH ×4 (08:41→20:12)
[2020-09-16] MEDS: ATORVASTATIN 40 MG TAB PO SCH (08:41)
[2020-09-16] MEDS: ASPIRIN 81 MG ECTAB PO SCH (08:41)
[2020-09-16] MEDS: lisinopril 5 MG TAB PO SCH (08:41)
[2020-09-16] MEDS: METOPROLOL TARTRATE 25 MG TAB PO SCH (08:41)
[2020-09-16] MEDS: AMIODARONE 200 MG TAB PO SCH (08:41)
[2020-09-16] MEDS: CHLORHEXIDINE GLUCONATE 0.12% 480 ML MT SCH ×3 (08:42→20:10)
[2020-09-16] MEDS: APIXABAN 5 MG TABLET PO SCH ×2 (08:42→20:09)
[2020-09-16] MEDS: POLYETHYLENE (MIRALAX) 17 GM PACK PO SCH (08:42)
[2020-09-16] MEDS: MULTIVITAMIN TAB PO SCH (08:42)
--- NOTE | 2020-09-16 10:23 | Hospitalist Progress Note ---
Date of Service September 16, 2020 Assessment & Plan (1) Acute metabolic encephalopathy: 2/2 underlying UTI. There is a spot on the lung that could be interpreted as pneumonia, however, there are no respiratory symptoms now and historically he did not present with respiratory symptoms on admission. Will cont broad spectrum abx with Zosyn and monitor clinical progress. (2) Epididymoorchitis: No sepsis, stop IVF as patient is eating. Cont Zosyn for now. Appreciate Urology recommendations. Cont ice (as tolerated), elevation and compression as tolerated. (3) UTI (urinary tract infection): UA consistent with infection. Patient denies urinary symptoms -Urine culture pending -On Zosyn as above (4) Acute urinary retention: likely related to underlying infection. Required a straight cath this morning once. Will plan to place a [place] if continues to retain. I have discussed this plan with primary nurse. (5) Abnormal CT scan: CT ABD/PELVIS: Mass-like density which indents the base of the bladder. This likely reflects the prostate gland. A bladder mass is considered much less likely Left lower lobe and lingular airspace opacity which could reflect an infectious process or atelectasis. -Urology consult regarding possible bladder mass vs prostate gland -Pt with no increased cough, no SOB or CP or fever or chills. Pulse ox 92-94% on RA. Pt on Zosyn as above. 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 Uncertain baseline activity abilities. Will review care home records and consider PT and OT consults. C ontinue Plavix, atorvastatin, aspirin per home regimen. (8) CAD (coronary artery disease): Chronic and stable without symptoms. Continue aspirin, metoprolol, lisinopril, atorvastatin per home regimen. (9) Atrial fibrillation: Continue metoprolol, amiodarone, Eliquis per home regimen. (10) History of pulmonary embolism: History of PE, DVT in 11/2019. Continue Eliquis (11) HTN (hypertension): chronic, at goal, Continue lisinopril, metoprolol (12) Benign prostatic hyperplasia with urinary obstruction: Acute urinary retention in setting of infection above. Continue finasteride, tamsulosin (13) Depression: Continue fluoxetine (14) DVT prophylaxis: Eliquis Full Code [facility] when medically stable. Likely early next week. DO Jerrica Patel Hospitalist Admission and Anticipated Discharge Date Admission Date: September 15, 2020 Subjective 70 yo M with BPH and h/o stroke with left sided hemiplegia presents with acute swollen right testicle that is painful for unknown length of time. He is disoriented and was found to have a UTI. He is currently concerned about having had a BM and states that he "doesn't want to be a poopy mess" He is reporting pain in his testicle. States he had pain in his back a few days ago that is not present now. He denies other symptoms at this time He is eating well as all of breakfast is now gone. Review of Systems Review of Systems: All systems reviewed & are unremarkable except as noted in Subjective Physical Exam Physical Exam: CONSTITUTIONAL: WNWD, vitals as above, generally well- appearing EYES: normal conjunctivae, no scleral icterus ENT: external ear and nose normal, MMM RESPIRATORY: clear to auscultation bilaterally, no crackles, rales or wheezes, normal respiratory effort CARDIOVASCULAR: regular rate and rhythm, S1 and 2 heard without murmurs, gallops or rubs, no JVD, no peripheral edema GASTROINTESTINAL: soft, nontender, nondistended, cannot assess CVA tenderness as patient unable to move well because he feels uncomfortable from recent BM MUSCULOSKELETAL: left sided hemiplegia, head is normocephalic and atraumatic : right testicle is enlarged and hardened, warm to touch, could not palpate the left testicle 2/2 pain. SKIN: warm and dry. NEUROLOGIC: some baseline facial droop, normal cognition, normal speech, no tremor. PSYCHIATRIC: alert cooperative and oriented to person and year only. Thinks he is at [place]. Results & Data Results & Data ([facility]) Vital Signs (Past 12 Hours) Vital Signs Temp Pulse Pulse Pulse Resp BP Pulse Ox 09/16/20 07:38 36.8 C 86 18 132/65 94 09/16/20 04:29 93 H 09/16/20 02:56 36.7 C 87 20 123/57 L 90 09/15/20 22:38 36.9 C 88 18 167/69 H 90 Laboratory Results Short CBC 0509/15/20 09/15/20 Range/Units 11:08 11:08 11:10 WBC 15.56 H (4.8-10.8) K/uL RBC 4.02 L (4.7-6.1) M/uL Hgb 12.7 L (14.0-18.0) g/dL Hct 37.5 L (42-52) % MCV 93.3 (80-100) fL MCH 31.6 (25-34) pg MCHC 33.9 (32-36) g/dL RDW Std Deviation 51.5 H (36.4-46.3) fL RDW Coeff of [place] 15.0 H (11.5-14.5) % Plt Count 243 (130-400) K/uL MPV 9.7 (7.4-10.4) fL Immature Gran % (Auto) 0.1 % Neut % (Auto) 83.5 % Lymph % (Auto) 6.3 % [place] % (Auto) 8.9 % Eos % (Auto) 1.0 % Baso % (Auto) 0.2 % Neut # (Auto) 13.00 H (1.4-6.5) K/uL Lymph # (Auto) 0.98 L (1.2-3.4) K/uL [place] # (Auto) 1.38 H (0.11-0.59) K/uL Eos # (Auto) 0.15 (0-0.5) K/uL Baso # (Auto) 0.03 (0-0.2) K/uL Immature Gran # (Auto) 0.02 (0.00-0.02) K/uL PT 10.7 (9.0-12.0) Seconds INR 1.1 (0.9-1.1) Sodium (136-145) mmol/L Potassium (3.5-5.1) mmol/L Chloride (98-107) mmol/L Carbon Dioxide (21-32) mmol/L Anion Gap (3-11) BUN (7-18) mg/dl Creatinine (0.6-1.4) mg/dl Est Cr Clr Drug Dosing ml/min Est GFR ( Amer) Est GFR (Non-Af Amer) BUN/Creatinine Ratio (10-20) Glucose (70-99) mg/dl Lactate (0.4-2.0) mmol/L Calcium (8.5-10.1) mg/dl Total Bilirubin (0.2-1) mg/dl AST (15-37) U/L ALT (12-78) U/L Alkaline Phosphatase (45-117) U/L Total Protein (6.4-8.2) gm/dl Albumin (3.4-5.0) gm/dl Globulin (2.5-4.0) gm/dl Albumin/Globulin Ratio (0.9-2) Lipase (73-393) U/L Urine Color Yellow Urine Appearance Turbid A (Clear) Urine pH 5.5 (4.5-7.5) Ur Specific [place] 1.022 (1.000-1.030) Urine Protein Trace H (Negative) Urine Glucose (UA) Negative (Negative) Urine Ketones Negative (Negative) Urine Blood 3+ H (Negative) Urine Nitrite Negative (Negative) Urine Bilirubin Negative (Negative) Urine Urobilinogen Negative (Negative) Ur Leukocyte Esterase 3+ H (Negative) Urine WBC (Auto) >30 H (0-5) /hpf Urine RBC (Auto) 0-4 (0-4) /hpf U Hyaline Cast (Auto) 0 (0-5) /lpf U Epithel Cells (Auto) 5-10 H (0-5) /lpf Urine Bacteria (Auto) 4+ H (Negative) Calcium Oxalate Crystal Present A (None Prsent) Urine Yeast Not Reportable Nasal Screen MRSA (PCR) (Negative) COVID-19 Eval Order SARS-CoV-2 (PCR) (Negative) Influenza Type A (PCR) (Neg) Influenza Type B (PCR) (Neg) RSV (RT-PCR) (Neg) 09/15/20 09/15/20 09/15/20 Range/Units 11:30 13:30 13:30 WBC (4.8-10.8) K/uL RBC (4.7-6.1) M/uL Hgb (14.0-18.0) g/dL Hct (42-52) % MCV (80-100) fL MCH (25-34) pg MCHC (32-36) g/dL RDW Std Deviation (36.4-46.3) fL RDW Coeff of [place] (11.5-14.5) % Plt Count (130-400) K/uL MPV (7.4-10.4) fL Immature Gran % (Auto) % Neut % (Auto) % Lymph % (Auto) % [place] % (Auto) % Eos % (Auto) % Baso % (Auto) % Neut # (Auto) (1.4-6.5) K/uL Lymph # (Auto) (1.2-3.4) K/uL [place] # (Auto) (0.11-0.59) K/uL Eos # (Auto) (0-0.5) K/uL Baso # (Auto) (0-0.2) K/uL Immature Gran # (Auto) (0.00-0.02) K/uL PT (9.0-12.0) Seconds INR (0.9-1.1) Sodium 140 (136-145) mmol/L Potassium 3.9 (3.5-5.1) mmol/L Chloride 109 H (98-107) mmol/L Carbon Dioxide 26 (21-32) mmol/L Anion Gap 5.0 (3-11) BUN 25 H (7-18) mg/dl Creatinine 0.74 (0.6-1.4) mg/dl Est Cr Clr Drug Dosing 91.5 ml/min Est GFR ( Amer) 106.8 Est GFR (Non-Af Amer) 92.2 BUN/Creatinine Ratio 34.0 H (10-20) Glucose 118 H (70-99) mg/dl Lactate (0.4-2.0) mmol/L Calcium 8.9 (8.5-10.1) mg/dl Total Bilirubin 0.5 (0.2-1) mg/dl AST 8 L (15-37) U/L ALT 21 (12-78) U/L Alkaline Phosphatase 117 (45-117) U/L Total Protein 6.3 L (6.4-8.2) gm/dl Albumin 2.8 L (3.4-5.0) gm/dl Globulin 3.5 (2.5-4.0) gm/dl Albumin/Globulin Ratio 0.8 L (0.9-2) Lipase 51 L (73-393) U/L Urine Color Urine Appearance (Clear) Urine pH (4.5-7.5) Ur Specific [place] (1.000-1.030) Urine Protein (Negative) Urine Glucose (UA) (Negative) Urine Ketones (Negative) Urine Blood (Negative) Urine Nitrite (Negative) Urine Bilirubin (Negative) Urine Urobilinogen (Negative) Ur Leukocyte Esterase (Negative) Urine WBC (Auto) (0-5) /hpf Urine RBC (Auto) (0-4) /hpf U Hyaline Cast (Auto) (0-5) /lpf U Epithel Cells (Auto) (0-5) /lpf Urine Bacteria (Auto) (Negative) Calcium Oxalate Crystal (None Prsent) Urine Yeast Nasal Screen MRSA (PCR) (Negative) COVID-19 Eval Order CovFluRsv at [facility] SARS-CoV-2 (PCR) NEGATIVE (Negative) Influenza Type A (PCR) Negative (Neg) Influenza Type B (PCR) Negative (Neg) RSV (RT-PCR) Negative (Neg) 09/15/20 09/15/20 09/16/20 Range/Units 14:08 18:35 05:38 WBC 14.42 H (4.8-10.8) K/uL RBC 4.09 L (4.7-6.1) M/uL Hgb 12.5 L (14.0-18.0) g/dL Hct 38.0 L (42-52) % MCV 92.9 (80-100) fL MCH 30.6 (25-34) pg MCHC 32.9 (32-36) g/dL RDW Std Deviation 51.2 H (36.4-46.3) fL RDW Coeff of [place] 15.1 H (11.5-14.5) % Plt Count 267 (130-400) K/uL MPV 10.2 (7.4-10.4) fL Immature Gran % (Auto) 0.2 % Neut % (Auto) 80.9 % Lymph % (Auto) 9.2 % [place] % (Auto) 7.8 % Eos % (Auto) 1.8 % Baso % (Auto) 0.1 % Neut # (Auto) 11.66 H (1.4-6.5) K/uL Lymph # (Auto) 1.32 (1.2-3.4) K/uL [place] # (Auto) 1.13 H (0.11-0.59) K/uL Eos # (Auto) 0.26 (0-0.5) K/uL Baso # (Auto) 0.02 (0-0.2) K/uL Immature Gran # (Auto) 0.03 H (0.00-0.02) K/uL PT (9.0-12.0) Seconds INR (0.9-1.1) Sodium (136-145) mmol/L Potassium (3.5-5.1) mmol/L Chloride (98-107) mmol/L Carbon Dioxide (21-32) mmol/L Anion Gap (3-11) BUN (7-18) mg/dl Creatinine (0.6-1.4) mg/dl Est Cr Clr Drug Dosing ml/min Est GFR ( Amer) Est GFR (Non-Af Amer) BUN/Creatinine Ratio (10-20) Glucose (70-99) mg/dl Lactate 1.7 (0.4-2.0) mmol/L Calcium (8.5-10.1) mg/dl Total Bilirubin (0.2-1) mg/dl AST (15-37) U/L ALT (12-78) U/L Alkaline Phosphatase (45-117) U/L Total Protein (6.4-8.2) gm/dl Albumin (3.4-5.0) gm/dl Globulin (2.5-4.0) gm/dl Albumin/Globulin Ratio (0.9-2) Lipase (73-393) U/L Urine Color Urine Appearance (Clear) Urine pH (4.5-7.5) Ur Specific [place] (1.000-1.030) Urine Protein (Negative) Urine Glucose (UA) (Negative) Urine Ketones (Negative) Urine Blood (Negative) Urine Nitrite (Negative) Urine Bilirubin (Negative) Urine Urobilinogen (Negative) Ur Leukocyte Esterase (Negative) Urine WBC (Auto) (0-5) /hpf Urine RBC (Auto) (0-4) /hpf U Hyaline Cast (Auto) (0-5) /lpf U Epithel Cells (Auto) (0-5) /lpf Urine Bacteria (Auto) (Negative) Calcium Oxalate Crystal (None Prsent) Urine Yeast Nasal Screen MRSA (PCR) Negative (Negative) COVID-19 Eval Order SARS-CoV-2 (PCR) (Negative) Influenza Type A (PCR) (Neg) Influenza Type B (PCR) (Neg) RSV (RT-PCR) (Neg) 09/16/20 Range/Units 05:39 WBC (4.8-10.8) K/uL RBC (4.7-6.1) M/uL Hgb (14.0-18.0) g/dL Hct (42-52) % MCV (80-100) fL MCH (25-34) pg MCHC (32-36) g/dL RDW Std Deviation (36.4-46.3) fL RDW Coeff of [place] (11.5-14.5) % Plt Count (130-400) K/uL MPV (7.4-10.4) fL Immature Gran % (Auto) % Neut % (Auto) % Lymph % (Auto) % [place] % (Auto) % Eos % (Auto) % Baso % (Auto) % Neut # (Auto) (1.4-6.5) K/uL Lymph # (Auto) (1.2-3.4) K/uL [place] # (Auto) (0.11-0.59) K/uL Eos # (Auto) (0-0.5) K/uL Baso # (Auto) (0-0.2) K/uL Immature Gran # (Auto) (0.00-0.02) K/uL PT (9.0-12.0) Seconds INR (0.9-1.1) Sodium 140 (136-145) mmol/L Potassium 3.6 (3.5-5.1) mmol/L Chloride 110 H (98-107) mmol/L Carbon Dioxide 23 (21-32) mmol/L Anion Gap 7.0 (3-11) BUN 21 H (7-18) mg/dl Creatinine 0.87 (0.6-1.4) mg/dl Est Cr Clr Drug Dosing 83.9 ml/min Est GFR ( Amer) 99.9 Est GFR (Non-Af Amer) 86.2 BUN/Creatinine Ratio 23.8 H (10-20) Glucose 104 H (70-99) mg/dl Lactate (0.4-2.0) mmol/L Calcium 8.9 (8.5-10.1) mg/dl Total Bilirubin (0.2-1) mg/dl AST (15-37) U/L ALT (12-78) U/L Alkaline Phosphatase (45-117) U/L Total Protein (6.4-8.2) gm/dl Albumin (3.4-5.0) gm/dl Globulin (2.5-4.0) gm/dl Albumin/Globulin Ratio (0.9-2) Lipase (73-393) U/L Urine Color Urine Appearance (Clear) Urine pH (4.5-7.5) Ur Specific [place] (1.000-1.030) Urine Protein (Negative) Urine Glucose (UA) (Negative) Urine Ketones (Negative) Urine Blood (Negative) Urine Nitrite (Negative) Urine Bilirubin (Negative) Urine Urobilinogen (Negative) Ur Leukocyte Esterase (Negative) Urine WBC (Auto) (0-5) /hpf Urine RBC (Auto) (0-4) /hpf U Hyaline Cast (Auto) (0-5) /lpf U Epithel Cells (Auto) (0-5) /lpf Urine Bacteria (Auto) (Negative) Calcium Oxalate Crystal (None Prsent) Urine Yeast Nasal Screen MRSA (PCR) (Negative) COVID-19 Eval Order SARS-CoV-2 (PCR) (Negative) Influenza Type A (PCR) (Neg) Influenza Type B (PCR) (Neg) RSV (RT-PCR) (Neg) BMP 09/15/20 09/16/20 11:30 05:39 Sodium 140 140 Potassium 3.9 3.6 Chloride 109 H 110 H Carbon Dioxide 26 23 BUN 25 H 21 H Creatinine 0.74 0.87 Glucose 118 H 104 H Calcium 8.9 8.9 Liver Function 09/15/20 Range/Units 11:30 Total Bilirubin 0.5 (0.2-1) mg/dl AST 8 L (15-37) U/L ALT 21 (12-78) U/L Alkaline Phosphatase 117 (45-117) U/L Albumin 2.8 L (3.4-5.0) gm/dl Urine 09/15/20 Range/Units 11:10 Urine Color Yellow Urine Appearance Turbid A (Clear) Urine pH 5.5 (4.5-7.5) Ur Specific [place] 1.022 (1.000-1.030) Urine Protein Trace H (Negative) Urine Glucose (UA) Negative (Negative) Medications Administered Current Inpatient Medications Acetaminophen (Acetaminophen 325 Mg Tab) 650 mg PO Q4H PRN PRN Reason: Pain or Fever Stop: 10/15/20 16:44 Amiodarone HCl (Amiodarone 200 Mg Tab) 200 mg PO QAM [facility] Stop: 10/16/20 08:59 Last Admin: 09/16/20 08:41 Dose: 200 mg Documented by: Apixaban (Apixaban 5 Mg Tablet) 5 mg PO BID [facility] Stop: 10/15/20 20:59 Last Admin: 09/16/20 08:42 Dose: 5 mg Documented by: Aspirin (Aspirin 81 Mg Ectab) 81 mg PO DAILY [facility] Stop: 10/16/20 08:59 Last Admin: 09/16/20 08:41 Dose: 81 mg Documented by: Atorvastatin Calcium (Atorvastatin 40 Mg Tab) 80 mg PO QAM [facility] Stop: 10/16/20 08:59 Last Admin: 09/16/20 08:41 Dose: 80 mg Documented by: Chlorhexidine Gluconate (Chlorhexidine Gluconate 0.12% 480 Ml) 15 ml MT TID [facility] Stop: 10/15/20 20:59 Last Admin: 09/16/20 08:42 Dose: 15 ml Documented by: Clopidogrel Bisulfate (Clopidogrel Bisulfate 75 Mg Tab) 75 mg PO DAILY [facility] Stop: 10/16/20 08:59 Last Admin: 09/16/20 08:41 Dose: 75 mg Documented by: Docusate Sodium (Docusate Sodium 100 Mg Cap) 100 mg PO BID [facility] Stop: 10/15/20 20:59 Last Admin: 09/16/20 08:40 Dose: 100 mg Documented by: Finasteride (Finasteride 5 Mg Tab) 5 mg PO QAM [facility] Stop: 10/16/20 08:59 Last Admin: 09/16/20 08:41 Dose: 5 mg Documented by: Fluoxetine HCl (Fluoxetine Hcl 20 Mg Cap) 20 mg PO QAM [facility] Stop: 10/16/20 08:59 Last Admin: 09/16/20 08:41 Dose: 20 mg Documented by: Gabapentin (Gabapentin 100 Mg Cap) 100 mg PO TID [facility] Stop: 10/15/20 20:59 Last Admin: 09/16/20 08:40 Dose: 100 mg Documented by: Doxycycline Hyclate 100 mg/ (Dextrose) 110 mls @ 50 mls/hr IV Q12H [facility] Stop: 09/22/20 17:59 Last Admin: 09/16/20 08:36 Dose: 50 mls/hr Documented by: Piperacillin Sod/Tazobactam (Sod 3.375 gm/ Dextrose) 115 mls @ 28.75 mls/hr IV Q8H [facility]; Protocol Stop: 09/17/20 17:59 Last Admin: 09/16/20 09:28 Dose: 28.8 mls/hr Documented by: Lisinopril (Lisinopril 5 Mg Tab) 5 mg PO DAILY [facility] Stop: 10/16/20 08:59 Last Admin: 09/16/20 08:41 Dose: 5 mg Documented by: Metoprolol Tartrate (Metoprolol Tartrate 25 Mg Tab) 12.5 mg PO DAILY [facility] Stop: 10/16/20 08:59 Last Admin: 09/16/20 08:41 Dose: 12.5 mg Documented by: Miscellaneous Information (Piperacill/Tazobac Consult Active) 1 ea N/A UD PRN PRN Reason: Consult Stop: 10/15/20 17:15 Multivitamins (Multivitamin Tab) 1 tab PO QAM [facility] Stop: 10/16/20 08:59 Last Admin: 09/16/20 08:42 Dose: 1 tab Documented by: Polyethylene Glycol (Polyethylene (Miralax) 17 Gm Pack) 17 gm PO DAILY [facility] Stop: 10/15/20 17:29 Last Admin: 09/16/20 08:42 Dose: 17 gm Documented by: Ropinirole HCl (Ropinirole Hcl 0.25 Mg Tablet) 0.5 mg PO QID [facility] Stop: 10/15/20 16:59 Last Admin: 09/16/20 08:41 Dose: 0.5 mg Documented by: Tamsulosin HCl (Tamsulosin Hcl 0.4 Mg Cap) 0.4 mg PO QPM [facility] Stop: 10/15/20 20:59 Last Admin: 09/15/20 21:30 Dose: 0.4 mg Documented by: Vitamin D (Cholecalciferol 1,000 Units 25 Mcg Tab) 25 units PO DAILY [facility] Stop: 10/16/20 08:59 Last Admin: 09/16/20 08:40 Dose: 25 units Documented by: (1) CAD (coronary artery disease) Coronary Disease-Associated Artery/Lesion type: [place] artery [place] vs. transplanted heart: [place] heart Associated angina: without angina Qualified Code(s): I25.10 - Atherosclerotic heart disease of [place] coronary artery without angina pectoris (2) HTN (hypertension) Hypertension type: essential hypertension Qualified Code(s): I10 - Essential (primary) hypertension
[2020-09-16] MEDS: TAMSULOSIN HCL 0.4 MG CAP PO SCH (20:11)
[2020-09-17] MEDS: PIPERACILLIN/TAZOBACTAM 3.375 GM in DEXTROSE 5% 100 ML IV SCH ×2 (01:13→09:12)
[2020-09-17 06:19] LABS: Hematocrit (blood only) 34.7 % (42-52); Hemoglobin 11.5 g/dL (14.0-18.0); Mean Corpuscular Hgb Conc 33.1 g/dL (32-36); Mean Corpuscular Volume 93.5 fL (80-100); Mean Platelet Volume 9.6 fL (7.4-10.4); Platelet Count 271 K/uL (130-400); RDW Coefficient of Variation 15.1 % (11.5-14.5); Red Blood Count 3.71 M/uL (4.7-6.1)
[2020-09-17 06:50] LABS: BUN Creatinine Ratio 25.7 (10-20); Calcium 9.1 mg/dl (8.5-10.1); Est GFR (African American) 99.5; Est GFR (Non-African American) 85.8; Potassium 3.5 mmol/L (3.5-5.1)
[2020-09-17] MEDS: GABAPENTIN 100 MG CAP PO SCH ×3 (08:15→20:16)
[2020-09-17] MEDS: APIXABAN 5 MG TABLET PO SCH ×2 (08:16→20:15)
[2020-09-17] MEDS: CLOPIDOGREL BISULFATE 75 MG TAB PO SCH (08:16)
[2020-09-17] MEDS: MULTIVITAMIN TAB PO SCH (08:17)
[2020-09-17] MEDS: ATORVASTATIN 40 MG TAB PO SCH (08:17)
[2020-09-17] MEDS: METOPROLOL TARTRATE 25 MG TAB PO SCH (08:17)
[2020-09-17] MEDS: AMIODARONE 200 MG TAB PO SCH (08:17)
[2020-09-17] MEDS: ASPIRIN 81 MG ECTAB PO SCH (08:18)
[2020-09-17] MEDS: lisinopril 5 MG TAB PO SCH (08:18)
[2020-09-17] MEDS: CHOLECALCIFEROL 1,000 UNITS 25 MCG TAB PO SCH (08:18)
[2020-09-17] MEDS: POLYETHYLENE (MIRALAX) 17 GM PACK PO SCH (08:18)
[2020-09-17] MEDS: CHLORHEXIDINE GLUCONATE 0.12% 480 ML MT SCH ×3 (08:19→20:15)
[2020-09-17] MEDS: FLUoxetine HCL 20 MG CAP PO SCH (08:19)
[2020-09-17] MEDS: DOCUSATE SODIUM 100 MG CAP PO SCH ×2 (08:19→20:16)
[2020-09-17] MEDS: rOPINIRole HCL 0.25 MG TABLET PO SCH ×4 (08:20→20:17)
[2020-09-17] MEDS: FINASTERIDE 5 MG TAB PO SCH (08:20)
--- NOTE | 2020-09-17 14:28 | Hospitalist Progress Note ---
Date of Service September 17, 2020 Assessment & Plan (1) Acute metabolic encephalopathy: 2/2 underlying UTI. There is a spot on the lung that could be interpreted as pneumonia, however, there are no respiratory symptoms now and historically he did not present with respiratory symptoms on admission. Appears improved. Cont Levaquin to cover both areas. (2) Epididymoorchitis: No sepsis, Cont Levaquin for prolonged course. Appreciate Urology recommendations. Cont ice (as tolerated), elevation and compression as tolerated. (3) UTI (urinary tract infection): Levaquin (4) Acute urinary retention: Resolved. No bond required after a one time straight cath. (5) Abnormal CT scan: CT ABD/PELVIS: Mass-like density which indents the base of the bladder. This likely reflects the prostate gland. A bladder mass is considered much less likely Per Urology interpretation of results, Likely showing signs of bladder with larg e prostate for and chronic outlet obstruction with small bilateral stones. 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 Uncertain baseline activity abilities. Will review long-term records and consider PT and OT consults. Continue Plavix, atorvastatin, aspirin per home regimen. (8) CAD (coronary artery disease): Chronic and stable without symptoms. Continue aspirin, metoprolol, lisinopril, atorvastatin per home regimen. (9) Atrial fibrillation: Continue metoprolol, amiodarone, Eliquis per home regimen. (10) History of pulmonary embolism: History of PE, DVT in 11/2019. Continue Eliquis (11) HTN (hypertension): chronic, at goal, Continue lisinopril, metoprolol (12) Benign prostatic hyperplasia with urinary obstruction: Continue finasteride, tamsulosin (13) Depression: Continue fluoxetine (14) DVT prophylaxis: Eliquis Full Code Dispo-back to [facility] when medically stable. Erum Fuentes DO [facility] Hospitalist Admission and Anticipated Discharge Date Admission Date: September 15, 2020 Subjective 70 yo M with BPH and h/o stroke with left sided hemiplegia presents with acute swollen right testicle that is painful for unknown length of time. His mental status is improved today-was confused on admission. Continues to have testicular pain and swelling that has improved Reports no pain unless testicle is manipulated No abdominal pain, flank pain, fevers, chills or other symptoms at this time. Review of Systems Review of Systems: All systems reviewed & are unremarkable except as noted in Subjective Physical Exam Physical Exam: CONSTITUTIONAL: WNWD, vitals as above, generally well-ap pearing EYES: normal conjunctivae, no scleral icterus ENT: external ear and nose normal, MMM RESPIRATORY: clear to auscultation bilaterally, no crackles, rales or wheezes, normal respiratory effort CARDIOVASCULAR: regular rate and rhythm, S1 and 2 heard without murmurs, gallops or rubs, no JVD, no peripheral edema GASTROINTESTINAL: soft, nontender, nondistended MUSCULOSKELETAL: left sided hemiplegia, head is normocephalic and atraumatic : right testicle is enlarged and hardened, warm to touch-improved since yesterday SKIN: warm and dry. NEUROLOGIC: some baseline facial droop, normal cognition, normal speech, no tremor. PSYCHIATRIC: alert cooperative and oriented today, improved. Results & Data Results & Data ([facility]) Vital Signs (Past 12 Hours) Vital Signs Temp Pulse Resp BP Pulse Ox 09/17/20 12:00 36.8 C 62 20 104/56 L 90 09/17/20 08:28 76 111/61 09/17/20 08:00 36.8 C 69 18 110/58 L 90 Laboratory Results Short CBC 09/17/20 Range/Units 05:54 WBC 11.00 H (4.8-10.8) K/uL Hgb 11.5 L (14.0-18.0) g/dL Hct 34.7 L (42-52) % Plt Count 271 (130-400) K/uL BMP 09/17/20 05:58 Sodium 140 Potassium 3.5 Chloride 109 H Carbon Dioxide 24 BUN 23 H Creatinine 0.88 Glucose 89 Calcium 9.1 Medications Administered Current Inpatient Medications Acetaminophen (Acetaminophen 325 Mg Tab) 650 mg PO Q4H PRN PRN Reason: Pain or Fever Stop: 10/15/20 16:44 Amiodarone HCl (Amiodarone 200 Mg Tab) 200 mg PO QAM [facility] Stop: 10/16/20 08:59 Last Admin: 09/17/20 08:17 Dose: 200 mg Documented by: Apixaban (Apixaban 5 Mg Tablet) 5 mg PO BID [facility] Stop: 10/15/20 20:59 Last Admin: 09/17/20 08:16 Dose: 5 mg Documented by: Aspirin (Aspirin 81 Mg Ectab) 81 mg PO DAILY [facility] Stop: 10/16/20 08:59 Last Admin: 09/17/20 08:18 Dose: 81 mg Documented by: Atorvastatin Calcium (Atorvastatin 40 Mg Tab) 80 mg PO QAM [facility] Stop: 10/16/20 08:59 Last Admin: 09/17/20 08:17 Dose: 80 mg Documented by: Chlorhexidine Gluconate (Chlorhexidine Gluconate 0.12% 480 Ml) 15 ml MT TID [facility] Stop: 10/15/20 20:59 Last Admin: 09/17/20 13:09 Dose: 15 ml Documented by: Clopidogrel Bisulfate (Clopidogrel Bisulfate 75 Mg Tab) 75 mg PO DAILY [facility] Stop: 10/16/20 08:59 Last Admin: 09/17/20 08:16 Dose: 75 mg Documented by: Docusate Sodium (Docusate Sodium 100 Mg Cap) 100 mg PO BID [facility] Stop: 10/15/20 20:59 Last Admin: 09/17/20 08:19 Dose: Not Given Documented by: Finasteride (Finasteride 5 Mg Tab) 5 mg PO QAM [facility] Stop: 10/16/20 08:59 Last Admin: 09/17/20 08:20 Dose: 5 mg Documented by: Fluoxetine HCl (Fluoxetine Hcl 20 Mg Cap) 20 mg PO QAM [facility] Stop: 10/16/20 08:59 Last Admin: 09/17/20 08:19 Dose: 20 mg Documented by: Gabapentin (Gabapentin 100 Mg Cap) 100 mg PO TID [facility] Stop: 10/15/20 20:59 Last Admin: 09/17/20 13:09 Dose: 100 mg Documented by: Piperacillin Sod/Tazobactam (Sod 3.375 gm/ Dextrose) 115 mls @ 28.75 mls/hr IV Q8H [facility]; Protocol Stop: 09/17/20 17:59 Last Infusion: 09/17/20 13:13 Dose: Infused Documented by: Lisinopril (Lisinopril 5 Mg Tab) 5 mg PO DAILY [facility] Stop: 10/16/20 08:59 Last Admin: 09/17/20 08:18 Dose: 5 mg Documented by: Metoprolol Tartrate (Metoprolol Tartrate 25 Mg Tab) 12.5 mg PO DAILY [facility] Stop: 10/16/20 08:59 Last Admin: 09/17/20 08:17 Dose: 12.5 mg Documented by: Miscellaneous Information (Piperacill/Tazobac Consult Active) 1 ea N/A UD PRN PRN Reason: Consult Stop: 10/15/20 17:15 Multivitamins (Multivitamin Tab) 1 tab PO QAM [facility] Stop: 10/16/20 08:59 Last Admin: 09/17/20 08:17 Dose: 1 tab Documented by: Polyethylene Glycol (Polyethylene (Miralax) 17 Gm Pack) 17 gm PO DAILY [facility] Stop: 10/15/20 17:29 Last Admin: 09/17/20 08:18 Dose: 17 gm Documented by: Ropinirole HCl (Ropinirole Hcl 0.25 Mg Tablet) 0.5 mg PO QID [facility] Stop: 10/15/20 16:59 Last Admin: 09/17/20 13:09 Dose: 0.5 mg Documented by: Tamsulosin HCl (Tamsulosin Hcl 0.4 Mg Cap) 0.4 mg PO QPM [facility] Stop: 10/15/20 20:59 Last Admin: 09/16/20 20:11 Dose: 0.4 mg Documented by: Vitamin D (Cholecalciferol 1,000 Units 25 Mcg Tab) 25 units PO DAILY [facility] Stop: 10/16/20 08:59 Last Admin: 09/17/20 08:18 Dose: 25 units Documented by: (1) CAD (coronary artery disease) Associated angina: without angina Coronary Disease-Associated Artery/Lesion type: [place] artery [place] vs. transplanted heart: [place] heart Qualified Code(s): I25.10 - Atherosclerotic heart disease of [place] coronary artery without angina pectoris (2) HTN (hypertension) Hypertension type: essential hypertension Qualified Code(s): I10 - Essential (primary) hypertension
[2020-09-17] MEDS: levoFLOXacin 750 MG TAB PO SCH (17:21)
[2020-09-17] MEDS: TAMSULOSIN HCL 0.4 MG CAP PO SCH (20:17)
[2020-09-18] MEDS: GABAPENTIN 100 MG CAP PO SCH ×3 (07:53→20:37)
[2020-09-18] MEDS: rOPINIRole HCL 0.25 MG TABLET PO SCH ×4 (07:53→20:36)
[2020-09-18] MEDS: lisinopril 5 MG TAB PO SCH (07:53)
[2020-09-18] MEDS: APIXABAN 5 MG TABLET PO SCH ×2 (07:53→20:34)
[2020-09-18] MEDS: AMIODARONE 200 MG TAB PO SCH (07:54)
[2020-09-18] MEDS: FINASTERIDE 5 MG TAB PO SCH (07:54)
[2020-09-18] MEDS: FLUoxetine HCL 20 MG CAP PO SCH (07:54)
[2020-09-18] MEDS: CLOPIDOGREL BISULFATE 75 MG TAB PO SCH (07:54)
[2020-09-18] MEDS: ATORVASTATIN 40 MG TAB PO SCH (07:54)
[2020-09-18] MEDS: ASPIRIN 81 MG ECTAB PO SCH (07:55)
[2020-09-18] MEDS: MULTIVITAMIN TAB PO SCH (07:55)
[2020-09-18] MEDS: CHOLECALCIFEROL 1,000 UNITS 25 MCG TAB PO SCH (07:55)
[2020-09-18] MEDS: METOPROLOL TARTRATE 25 MG TAB PO SCH (07:55)
[2020-09-18] MEDS: CHLORHEXIDINE GLUCONATE 0.12% 480 ML MT SCH ×3 (07:55→20:35)
[2020-09-18] MEDS: DOCUSATE SODIUM 100 MG CAP PO SCH ×2 (07:56→20:37)
[2020-09-18] MEDS: POLYETHYLENE (MIRALAX) 17 GM PACK PO SCH (07:56)
[2020-09-18] MEDS: levoFLOXacin 750 MG TAB PO SCH (11:28)
--- NOTE | 2020-09-18 18:45 | Hospitalist Progress Note ---
Date of Service September 18, 2020 Assessment & Plan (1) Acute metabolic encephalopathy: 2/2 underlying UTI. Questionable pneumonia with historical report of cough symptoms along with imaging findings. Appears improved. Cont Levaquin. (2) Epididymoorchitis: No sepsis, Cont Levaquin. Will continue with prolonged course per Urology recs. Cont ice (as tolerated), elevation and compression as tolerated. (3) UTI (urinary tract infection): Levaquin. (4) Acute urinary retention: likely related to underlying infection. No bond required after a one time straight cath. Resolved. (5) Abnormal CT scan: CT ABD/PELVIS: Mass-like density which indents the base of the bladder. This likely reflects the prostate gland. A bladder mass is considered much less likely Per Urology interpretation of results, Likely showing signs of bladder with large prostate for and chronic outlet obstruction with small bilateral stones. 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 Uncertain baseline activity abilities. Will review [facility] and consider PT and OT consults. Continue Plavix, atorvastatin, aspirin per home regimen. (8) CAD (coronary artery disease): Chronic and stable without symptoms. Continue aspirin, metoprolol, lisinopril, atorvastatin per home regimen. (9) Atrial fibrillation: Continue metoprolol, amiodarone, Eliquis per home regimen. (10) History of pulmonary embolism: History of PE, DVT in 11/2019. Continue Eliquis (11) HTN (hypertension): chronic, at goal, Continue lisinopril, metoprolol (12) Benign prostatic hyperplasia with urinary obstruction: Continue finasteride, tamsulosin (13) Depression: Continue fluoxetine (14) DVT prophylaxis: Eliquis Full Code Dispo-back to [facility] when medically stable. PT/OT evaluations and recs pending. Erum Fuentes DO [facility] Hospitalist Admission and Anticipated Discharge Date Admission Date: September 15, 2020 Subjective 70 yo M with BPH and h/o stroke with left sided hemiplegia presents with acute swollen right testicle that is painful for unknown length of time. His mental status is improved today-was confused on admission. Continues to have testicular pain and swelling that has improved Reports no pain unless testicle is manipulated No abdominal pain, flank pain, fevers, chills or other symptoms at this time. Mental status appears to have cleared and he is wishing for the ability to ambulate. We discussed the fact that physical therapy will be in to work with him today. He did report a deep cough and questionable pneumonia symptoms prior to arrival and is better at this point. Continue Levaquin Review of Systems Review of Systems: All systems reviewed & are unremarkable except as noted in Subjective Physical Exam Physical Exam: CONSTITUTIONAL: WNWD, vitals as above, generally well- appearing EYES: normal conjunctivae, no scleral icterus ENT: external ear and nose normal, MMM RESPIRATORY: clear to auscultation bilaterally, no crackles, rales or wheezes, normal respiratory effort CARDIOVASCULAR: regular rate and rhythm, S1 and 2 heard without murmurs, gallops or rubs, no JVD, no peripheral edema GASTROINTESTINAL: soft, nontender, nondistended, cannot assess CVA tenderness as patient unable to move well because he feels uncomfortable from recent BM MUSCULOSKELETAL: left sided hemiplegia, head is normocephalic and atraumatic : right testicle is enlarged and hardened, warm to touch- continues to improve SKIN: warm and dry. NEUROLOGIC: some baseline facial droop, normal cognition, normal speech, no tremor. PSYCHIATRIC: alert cooperative and oriented today, improved. Results & Data Results & Data ([facility]) Vital Signs (Past 12 Hours) Vital Signs Temp Pulse Resp BP Pulse Ox 09/18/20 14:56 36.5 C 63 20 142/63 H 91 09/18/20 07:59 36.7 C 90 20 158/66 H 90 Medications Administered Current Inpatient Medications Acetaminophen (Acetaminophen 325 Mg Tab) 650 mg PO Q4H PRN PRN Reason: Pain or Fever Stop: 10/15/20 16:44 Amiodarone HCl (Amiodarone 200 Mg Tab) 200 mg PO QAM [facility] Stop: 10/16/20 08:59 Last Admin: 09/18/20 07:54 Dose: 200 mg Documented by: Apixaban (Apixaban 5 Mg Tablet) 5 mg PO BID [facility] Stop: 10/15/20 20:59 Last Admin: 09/18/20 07:53 Dose: 5 mg Documented by: Aspirin (Aspirin 81 Mg Ectab) 81 mg PO DAILY [facility] Stop: 10/16/20 08:59 Last Admin: 09/18/20 07:55 Dose: 81 mg Documented by: Atorvastatin Calcium (Atorvastatin 40 Mg Tab) [facility] Stop: 10/16/20 08:59 Last Admin: 09/18/20 07:54 Dose: 80 mg Documented by: Chlorhexidine Gluconate (Chlorhexidine Gluconate 0.12% 480 Ml) 15 ml MT TID [facility] Stop: 10/15/20 20:59 Last Admin: 09/18/20 14:34 Dose: 15 ml Documented by: Clopidogrel Bisulfate (Clopidogrel Bisulfate 75 Mg Tab) 75 mg PO DAILY [facility] Stop: 10/16/20 08:59 Last Admin: 09/18/20 07:54 Dose: 75 mg Documented by: Docusate Sodium (Docusate Sodium 100 Mg Cap) 100 mg PO BID [facility] Stop: 10/15/20 20:59 Last Admin: 09/18/20 07:56 Dose: 100 mg Documented by: Finasteride (Finasteride 5 Mg Tab) [address] [facility] Stop: 10/16/20 08:59 Last Admin: 09/18/20 07:54 Dose: 5 mg Documented by: Fluoxetine HCl (Fluoxetine Hcl 20 Mg Cap) [address] [facility] Stop: 10/16/20 08:59 Last Admin: 09/18/20 07:54 Dose: 20 mg Documented by: Gabapentin (Gabapentin 100 Mg Cap) 100 mg PO TID [facility] Stop: 10/15/20 20:59 Last Admin: 09/18/20 14:34 Dose: 100 mg Documented by: Levofloxacin (Levofloxacin 750 Mg Tab) 750 mg PO DAILY@1100 [facility]; Protocol Stop: 09/27/20 16:29 Last Admin: 09/18/20 11:28 Dose: 750 mg Documented by: Lisinopril (Lisinopril 5 Mg Tab) 5 mg PO DAILY [facility] Stop: 10/16/20 08:59 Last Admin: 09/18/20 07:53 Dose: 5 mg Documented by: Metoprolol Tartrate (Metoprolol Tartrate 25 Mg Tab) 12.5 mg PO DAILY [facility] Stop: 10/16/20 08:59 Last Admin: 09/18/20 07:55 Dose: 12.5 mg Documented by: Multivitamins (Multivitamin Tab) [address] [facility] Stop: 10/16/20 08:59 Last Admin: 09/18/20 07:55 Dose: 1 tab Documented by: Polyethylene Glycol (Polyethylene (Miralax) 17 Gm Pack) 17 gm PO DAILY [facility] Stop: 10/15/20 17:29 Last Admin: 09/18/20 07:56 Dose: 17 gm Documented by: Ropinirole HCl (Ropinirole Hcl 0.25 Mg Tablet) 0.5 mg PO QID [facility] Stop: 10/15/20 16:59 Last Admin: 09/18/20 17:58 Dose: 0.5 mg Documented by: Tamsulosin HCl (Tamsulosin Hcl 0.4 Mg Cap) 0.4 mg PO QPM [facility] Stop: 10/15/20 20:59 Last Admin: 09/17/20 20:17 Dose: 0.4 mg Documented by: Vitamin D (Cholecalciferol 1,000 Units 25 Mcg Tab) 25 units PO DAILY [facility] Stop: 10/16/20 08:59 Last Admin: 09/18/20 07:55 Dose: 25 units Documented by: (1) CAD (coronary artery disease) Coronary Disease-Associated Artery/Lesion type: [place] artery [place] vs. transplanted heart: [place] heart Associated angina: without angina Qualified Code(s): I25.10 - Atherosclerotic heart disease of [place] coronary artery without angina pectoris (2) HTN (hypertension) Hypertension type: essential hypertension Qualified Code(s): I10 - Essential (primary) hypertension
[2020-09-18] MEDS: TAMSULOSIN HCL 0.4 MG CAP PO SCH (20:37)
[2020-09-19 07:17] LABS: Hematocrit (blood only) 35.8 % (42-52); Hemoglobin 11.9 g/dL (14.0-18.0); Mean Corpuscular Hemoglobin 30.7 pg (25-34); Mean Corpuscular Hgb Conc 33.2 g/dL (32-36); Mean Corpuscular Volume 92.3 fL (80-100); Mean Platelet Volume 9.1 fL (7.4-10.4); Platelet Count 308 K/uL (130-400); RDW Coefficient of Variation 14.7 % (11.5-14.5); RDW Standard Deviation 49.8 fL (36.4-46.3); Red Blood Count 3.88 M/uL (4.7-6.1); White Blood Count 8.67 K/uL (4.8-10.8)
[2020-09-19 07:48] LABS: Calcium 9.1 mg/dl (8.5-10.1); Creatinine Clr Calc Pharmacy 83.9 ml/min; Est GFR (African American) 100.4; Est GFR (Non-African American) 86.6; Potassium 3.4 mmol/L (3.5-5.1)
[2020-09-19] MEDS: DOCUSATE SODIUM 100 MG CAP PO SCH (08:19)
[2020-09-19] MEDS: FLUoxetine HCL 20 MG CAP PO SCH (08:20)
[2020-09-19] MEDS: CLOPIDOGREL BISULFATE 75 MG TAB PO SCH (08:20)
[2020-09-19] MEDS: POLYETHYLENE (MIRALAX) 17 GM PACK PO SCH ×2 (08:20→08:29)
[2020-09-19] MEDS: CHOLECALCIFEROL 1,000 UNITS 25 MCG TAB PO SCH (08:20)
[2020-09-19] MEDS: FINASTERIDE 5 MG TAB PO SCH (08:21)
[2020-09-19] MEDS: METOPROLOL TARTRATE 25 MG TAB PO SCH (08:21)
[2020-09-19] MEDS: ATORVASTATIN 40 MG TAB PO SCH (08:21)
[2020-09-19] MEDS: MULTIVITAMIN TAB PO SCH (08:21)
[2020-09-19] MEDS: ASPIRIN 81 MG ECTAB PO SCH (08:22)
[2020-09-19] MEDS: AMIODARONE 200 MG TAB PO SCH (08:22)
[2020-09-19] MEDS: GABAPENTIN 100 MG CAP PO SCH ×2 (08:22→14:27)
[2020-09-19] MEDS: lisinopril 5 MG TAB PO SCH (08:22)
[2020-09-19] MEDS: rOPINIRole HCL 0.25 MG TABLET PO SCH ×3 (08:23→16:26)
[2020-09-19] MEDS: CHLORHEXIDINE GLUCONATE 0.12% 480 ML MT SCH ×2 (08:23→12:52)
[2020-09-19] MEDS: APIXABAN 5 MG TABLET PO SCH (08:23)
[2020-09-19] MEDS: levoFLOXacin 750 MG TAB PO SCH (12:51)
--- NOTE | 2020-09-19 14:20 | Discharge Summary ---
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 Patient is unsure when symptoms started, reports been swollen for "a while", however reports past couple days with right groin pain. He is on sure when redness started. Denies any known injury or trauma. History of hernia repair years ago. Denies hematuria, urinary frequency, dysuria, urinary retention. 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 Denies abdominal pain. Denies any known fever or chills. Patient reports chronic intermittent slight cough at baseline, denies any worsening. Denies any shortness of breath or chest pain. Denies diaphoresis, N/V/D, KENDALL, dizziness, syncope, vision changes, neck pain, orthopnea, palpitations, sore throat, choking, otalgia, rhinorrhea, paresthesias, increased weakness, extremity edema, other rashes. Admission Exam Per Admitting Provider General: no distress, thin elderly male Head: normocephalic, atraumatic Eyes: conjunctiva non-injected, anicteric ENT: normal inspection external ears, nose, mucous membranes moist Neck: supple, trachea midline Lungs: clear, no respiratory distress, no wheezing/rhonchi/rales CV: RRR, no murmur, no pretibial edema Abd: normal BS, soft, +tenderness to palpation RLQ, suprapubic, LLQ Groin: +significant erythema and edema of right scrotum, penis extending to suprapubic region (pt only allows limited visualization, did not visualize left scrotum) +tenderness and warmth to light palpation right scrotum Ext: no cyanosis, no calf tenderness; left sided weakness -chronic from prior CVA Neuro: A&O x 3, no focal deficits noted, normal affect Skin: warm, dry, left heel pressure ulcer with scab Principal Diagnosis Epididymo orchitis-left UTI secondary to Enterobacter cloacae Acute metabolic encephalopathy resolved Acute urinary retention resolved Discharge Exam CONSTITUTIONAL: WNWD, vitals as above, generally well-appearing EYES: normal conjunctivae, no scleral icterus ENT: external ear and nose normal, MMM RESPIRATORY: clear to auscultation bilaterally, no crackles, rales or wheezes, normal respiratory effort CARDIOVASCULAR: regular rate and rhythm, S1 and 2 heard without murmurs, gallops or rubs, no JVD, no peripheral edema GASTROINTESTINAL: soft, nontender, nondistended, no guarding. MUSCULOSKELETAL: left sided hemiplegia, head is normocephalic and atraumatic : at least 50% improved since admission from the standpoint of erythema, tenderness and swelling of the right testicle. Any cellulitis has resolved. SKIN: warm and dry. NEUROLOGIC: some baseline facial droop, normal cognition, normal speech, no tremor. PSYCHIATRIC: alert cooperative and oriented today, improved. Discharge Data Allergies Allergy/AdvReac Type Severity Reaction Status Date / Time No Known Allergies Allergy Verified 09/15/20 11:35 Consultations 09/15/20 13:07 ED Decision to Admit Stat 09/15/20 16:45 Consult Urology Routine Ordered Studies Laboratory Results WBC 8.67 K/uL (4.8-10.8) 09/19/20 06:46 RBC 3.88 M/uL (4.7-6.1) L 09/19/20 06:46 Hgb 11.9 g/dL (14.0-18.0) L 09/19/20 06:46 Hct 35.8 % (42-52) L 09/19/20 06:46 MCV 92.3 fL (80-100) 09/19/20 06:46 MCH 30.7 pg (25-34) 09/19/20 06:46 MCHC 33.2 g/dL (32-36) 09/19/20 06:46 RDW Std Deviation 49.8 fL (36.4-46.3) H 09/19/20 06:46 RDW Coeff of Markell 14.7 % (11.5-14.5) H 09/19/20 06:46 Plt Count 308 K/uL (130-400) 09/19/20 06:46 MPV 9.1 fL (7.4-10.4) 09/19/20 06:46 Immature Gran % (Auto) 0.2 % 09/16/20 05:38 Neut % (Auto) 80.9 % 09/16/20 05:38 Lymph % (Auto) 9.2 % 09/16/20 05:38 Mcdowell % (Auto) 7.8 % 09/16/20 05:38 Eos % (Auto) 1.8 % 09/16/20 05:38 Baso % (Auto) 0.1 % 09/16/20 05:38 Neut # (Auto) 11.66 K/uL (1.4-6.5) H 09/16/20 05:38 Lymph # (Auto) 1.32 K/uL (1.2-3.4) 09/16/20 05:38 Mcdowell # (Auto) 1.13 K/uL (0.11-0.59) H 09/16/20 05:38 Eos # (Auto) 0.26 K/uL (0-0.5) 09/16/20 05:38 Baso # (Auto) 0.02 K/uL (0-0.2) 09/16/20 05:38 Immature Gran # (Auto) 0.03 K/uL (0.00-0.02) H 09/16/20 05:38 PT 10.7 Seconds (9.0-12.0) 09/15/20 11:08 INR 1.1 (0.9-1.1) 09/15/20 11:08 Sodium 142 mmol/L (136-145) 09/19/20 06:46 Potassium 3.4 mmol/L (3.5-5.1) L 09/19/20 06:46 Chloride 110 mmol/L (98-107) H 09/19/20 06:46 Carbon Dioxide 26 mmol/L (21-32) 09/19/20 06:46 Anion Gap 6.0 (3-11) 09/19/20 06:46 BUN 18 mg/dl (7-18) 09/19/20 06:46 Creatinine 0.86 mg/dl (0.6-1.4) 09/19/20 06:46 Est Cr Clr Drug Dosing 83.9 ml/min 09/19/20 06:46 Est GFR ( Amer) 100.4 09/19/20 06:46 Est GFR (Non-Af Amer) 86.6 09/19/20 06:46 BUN/Creatinine Ratio 21.0 (10-20) H 09/19/20 06:46 Glucose 102 mg/dl (70-99) H 09/19/20 06:46 Lactate 1.7 mmol/L (0.4-2.0) 09/15/20 14:08 Calcium 9.1 mg/dl (8.5-10.1) 09/19/20 06:46 Total Bilirubin 0.5 mg/dl (0.2-1) 09/15/20 11:30 AST 8 U/L (15-37) L 09/15/20 11:30 ALT 21 U/L (12-78) 09/15/20 11:30 Alkaline Phosphatase 117 U/L (45-117) 09/15/20 11:30 Total Protein 6.3 gm/dl (6.4-8.2) L 09/15/20 11:30 Albumin 2.8 gm/dl (3.4-5.0) L 09/15/20 11:30 Globulin 3.5 gm/dl (2.5-4.0) 09/15/20 11:30 Albumin/Globulin Ratio 0.8 (0.9-2) L 09/15/20 11:30 Lipase 51 U/L (73-393) L 09/15/20 11:30 Urine Color Yellow 09/15/20 11:10 Urine Appearance Turbid (Clear) A 09/15/20 11:10 Urine pH 5.5 (4.5-7.5) 09/15/20 11:10 Ur Specific [place] 1.022 (1.000-1.030) 09/15/20 11:10 Urine Protein Trace (Negative) H 09/15/20 11:10 Urine Glucose (UA) Negative (Negative) 09/15/20 11:10 Urine Ketones Negative (Negative) 09/15/20 11:10 Urine Blood 3+ (Negative) H 09/15/20 11:10 Urine Nitrite Negative (Negative) 09/15/20 11:10 Urine Bilirubin Negative (Negative) 09/15/20 11:10 Urine Urobilinogen Negative (Negative) 09/15/20 11:10 Ur Leukocyte Esterase 3+ (Negative) H 09/15/20 11:10 Urine WBC (Auto) >30 /hpf (0-5) H 09/15/20 11:10 Urine RBC (Auto) 0-4 /hpf (0-4) 09/15/20 11:10 U Hyaline Cast (Auto) 0 /lpf (0-5) 09/15/20 11:10 U Epithel Cells (Auto) 5-10 /lpf (0-5) H 09/15/20 11:10 Urine Bacteria (Auto) 4+ (Negative) H 09/15/20 11:10 Calcium Oxalate Crystal Present (None Prsent) A 09/15/20 11:10 Urine Yeast Not Reportable 09/15/20 11:10 Nasal Screen MRSA (PCR) Negative (Negative) 09/15/20 18:35 COVID-19 Eval Order [facility] at [facility] 09/15/20 13:30 SARS-CoV-2 (PCR) NEGATIVE (Negative) 09/15/20 13:30 Influenza Type A (PCR) Negative (Neg) 09/15/20 13:30 Influenza Type B (PCR) Negative (Neg) 09/15/20 13:30 RSV (RT-PCR) Negative (Neg) 09/15/20 13:30 Impressions Abdomen/Pelvis CT 09/15/20 11:00 CT OF THE ABDOMEN AND PELVIS WITHOUT CONTRAST CLINICAL HISTORY: Incarcerated right inguinal hernia/ COMPARISON STUDY: CT of the abdomen and pelvis July 17, 2015. TECHNIQUE: Axial images of the abdomen and pelvis were obtained without IV contrast. Images were reviewed in the axial, sagittal, and coronal planes. Automated exposure control was utilized for the study. A dose lowering technique was utilized adhering to the principles of ALARA. FINDINGS: Imaged portions of the lower chest demonstrate moderate emphysema. There is lingular and left lower lobe airspace opacity. Evaluation of the abdomen and pelvis is suboptimal on this unenhanced examination. No pneumatosis, free air or portal venous gas is present. Unenhanced images of the liver, spleen, adrenal glands, right kidney and pancreas are unremarkable. A water attenuation left renal lesion favors a cyst. There is a 4 mm calculus within the upper pole of the left kidney. There is no hydronephrosis. Bladder is mildly distended. Bladder wall thickening is probably chronic. Numerous small bladder calculi measure up to 4 mm renal calculi. Multiple small bladder calculi. No ureteral calculi or hydronephrosis.. A 6.3 cm density projects over the base of the bladder. This likely reflects the prostate gland. There is a large amount of stool within the rectum with mild rectal wall thickening. There is no adjacent infiltration. Note is made of a fat-containing right inguinal hernia. There is also fluid within the right hernia sac. There are no bowel loops within the right inguinal hernia sac. There may be a right-sided hydrocele. Note is made of moderate scrotal infiltration which extends superiorly to the lower pelvis. This is suboptimally assessed on this unenhanced exam. No soft tissue gas is identified. IMPRESSION: 1. Small fat and fluid containing right inguinal hernia which does not contain bowel. Moderate scrotal infiltration extending superiorly to the level of the pelvis favors an infectious process with cellulitis. No soft tissue gas. Possible right hydrocele, suboptimally assessed by CT. 2. Large amount of stool within the rectum. Mild rectal wall thickening without adjacent infiltration. The findings suggest fecal impaction. No bowel obstruction. 3. Mass-like density which indents the base of the bladder. This likely reflects the prostate gland. A bladder mass is considered much less likely however correlation with urine cytology and urinalysis is recommended. If abnormal, cystoscopy is recommended. 4. Left lower lobe and lingular airspace opacity which could reflect an infectious process or atelectasis. Emphysema. 5. Small left renal calculus. Small bladder calculi. No ureteral calculi or hydronephrosis. ACT 112: Negative or not required by law. Electronically signed by: Bigg Rudolph M.D. 09/15/2020 12:25 PM Scrotum Ultrasound 09/15/20 16:45 ULTRASOUND TESTES AND SCROTUM CLINICAL HISTORY: Scrotal edema COMPARISON STUDY: No priors. TECHNIQUE: Real-time, grayscale, and color Doppler sonography of the testes and scrotum is performed. Images are reviewed in the transverse and longitudinal planes. FINDINGS: The testes are normal in size and heterogeneous in echotexture. The right testis measures 4.7 x 3.0 x 2.8 cm and the left testis measures 4.9 x 1.8 x 2.3 cm. No intratesticular mass is seen. The right testis appears hyperemic as compared to the left. Normal Doppler waveforms are identified in both testes. The right epididymal head is enlarged and heterogeneous, measuring 2.5 cm in length. The right epididymis is hyperemic on color imaging. The left epididymal head is normal in appearance and measures 1.0 cm in length. Bilateral epididymal head cysts measure up to 6 mm. There is a 3.9 x 2.1 x 3.3 cm complex cystic structure identified superior to the right testis adjacent to the epididymis. There is a moderate complex right-sided hydrocele. No hydrocele is seen on the left and no varicocele is identified. IMPRESSION: 1. Findings are consistent with right-sided epididymoorchitis. 2. The testes are heterogeneous in echotexture with no mass lesion identified. 3. There is a moderate and complex right-sided hydrocele. 4. There is a 3.9 cm complex cystic structure identified superior to the right testis and adjacent to the epididymis. This may represent a complex spermatocele. Infection is not excluded. Follow-up with urology is recommended, and a 3 month follow-up ultrasound is recommended for reassessment. ACT 112: Negative or not required by law. Electronically signed by: Driss Villalba M.D. 09/15/2020 9:[address] 09/15/20 20:29 CT SCAN OF THE BRAIN WITHOUT IV CONTRAST CLINICAL HISTORY: Change in mental status. COMPARISON STUDY: CT of the brain dated 12/06/2019. TECHNIQUE: Unenhanced axial CT scan of the brain is performed from the vertex to the skull base. A dose lowering technique was utilized adhering to the principles of ALARA. The patient was scanned twice due to motion artifact. CT DOSE: 1467.65 mGy.cm FINDINGS: Brain parenchyma: Right MCA territory encephalomalacia is consistent with a remote infarct. There are age-related involutional changes noting mild subcortical and periventricular microangiopathic change. Wallerian degeneration is noted in the right aspect of the zohaib. There is no hemorrhage, mass effect, or evidence of acute territorial ischemia by CT criteria. Caraballo-white matter differentiation is preserved. No extra-axial fluid collection is seen. Ventricles, sulci, cisterns: Prominent secondary to involutional change. Intracranial vasculature: There is atherosclerotic calcification of the cavernous carotid and vertebral arteries. Calvarium: Unremarkable. Sinuses and mastoids: The paranasal sinuses are clear. The mastoid air cells are well pneumatized. Orbits: The bony orbits are grossly intact. There are bilateral ocular lens implants. IMPRESSION: 1. There is no hemorrhage, mass effect, or evidence of acute territorial ischemia by CT criteria. 2. Remote right MCA territory infarct. ACT 112: Negative or not required by law. Electronically signed by: Driss Villalba M.D. 09/15/2020 8:53 PM Hospital Course (1) Acute metabolic encephalopathy: (2) Epididymoorchitis: (3) UTI (urinary tract infection): (4) Acute urinary retention: (5) Abnormal CT scan: (6) CVA (cerebral vascular accident): (7) CAD (coronary artery disease): (8) Atrial fibrillation: (9) History of pulmonary embolism: (10) Benign prostatic hyperplasia with urinary obstruction: The patient is a 70-year-old man who presented with acute metabolic encephalopathy secondary to underlying pneumonia and urinary tract infection with testicular involvement. Urinary culture revealed Enterobacter cloacae a and antibiotics were deescalated from Zosyn to Levaquin to cover both the pulmonary and infection. He did not present with sepsis and did not become septic this admission. Mental status continued to improve after approximately 48 hours on antibiotics. He remained clinically stable and mentating and ambulating at his baseline. 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 Work-up included a CT of the abdomen pelvis without contrast revealing a small fat and fluid filled right inguinal hernia that did not contain bowel, moderate scrotal infiltration extending superiorly to the level of the pelvis favoring an infectious process with cellulitis, no soft tissue gas was seen, possible fecal impaction with no bowel obstruction, a masslike density which indents the base of the bladder likely reflecting the prostate gland. A bladder mass was considered much less likely however correlation with urine cytology and urinalysis was recommended. Per urology interpretation of this finding this likely shows signs of a bladder with a large prostate and chronic outlet obstruction with small bilateral stones. CT also revealed left lower lobe and lingular airspace opacity consistent with pneumonia as well as emphysema. A small left renal calculus was seen with small bladder calculi. No ureteral calculi or hydronephrosis was seen. A scrotum ultrasound revealed a right sided epididymoorchitis. The testes were heterogeneous in echotexture with no mass lesion. There was a moderate and complex right-sided hydrocele. There was a 3.9 cm complex cystic structure in the superior right testes adjacent to the epididymis that may represent a complex spermatocele. Urology was consulted for abnormal findings and recommended 14 days total of antibiotic therapy with close follow-up in the urology office. A cystoscopy is recommended. Of note, initially there was thought to be a pressure ulcer on the left foot, however, this was ruled out and no pressure ulcer was seen. Total Time Total Time Spent Total Time Spent (In Minutes): 60 Total Time Includes: Examination of the Patient, Discharge Planning, Medication Reconciliation and Communication With Other Providers Discharge Plan Discharge Items Patient Disposition: Trans Resident Long-Term Care Reason For Visit: CELLULITIS Discharge Diagnosis: Epididymo orchitis-left Pneumonia UTI secondary to Enterobacter cloacae Acute metabolic encephalopathy resolved Acute urinary retention resolved Condition on Discharge: Good Activity: Resume your previous activity Non-emergency contact: Primary Care Provider Call non-emergency contact if: you have any medication questions, your symptoms worsen, your pain is not controlled, your pain is worsening, your pain is unusual for you, your pain is concerning for you and you have a fever Follow-up/Referrals: Yanni Ferreira [Primary Care Provider] - Diet: Heart Healthy Addtl Attending Provider Instructions: Please take all medications as instructed on discharge list below. You have been diagnosed with pneumonia. Please continue the antibiotics as prescribed and consider repeat chest x-ray in 4 weeks to ensure complete resolution of imaging findings originally seen. You have been diagnosed with an infection in your testicle likely related to a urinary tract infection. The urology specialist recommends a 14-day course of antibiotics. You are being given 1 antibiotic to treat both your genitourinary infection and your pneumonia. A follow-up with your primary care provider is recommended within a week of discharge to ensure you are still doing well. At this time a reassessment of your left testicle swelling will be important. Please follow all urology instructions given below. It was a pleasure taking care of you! Please call if you have any questions or problems. You can reach a [facility] hospitalist on duty at [facility] 24 hours a day by calling [phone]. Take care of yourself. Erum Fuentes DO [place] Hospitalist Addtl Reel Stripper Provider Instructions: Instructions from [facility] Recommend follow-up in 3-4 weeks for cystoscopy for further evaluation Our office is working on your appointment Please call our office at to confirm Recommend scrotal support when ambulating, Scrotal elevation when sitting/laying flat, Ice (20 mins on/20 mins off) when acutely swollen or tender, Heating Pad (20 mins on/20 mins off) when sore, and avoidance of injury/protection when active. Pending Studies at Discharge: No Stand-Alone Forms: My [facility] Skilled Items Patient informed of condition?: Yes DNR: No Discharge Level of Care: Skilled Communicable Disease: No Discharge Prognosis: Stable Lines: None Urinary Catheter: No Medications and DC Order Prescriptions: New levofloxacin 750 mg Tablet 750 mg PO DAILY@1100 Qty: 10 RF: 0 Continued multivitamin tablet 1 tab PO QAM RF: 0 lisinopril 5 mg tablet 5 mg PO DAILY Qty: 30 RF: 0 acetaminophen [Tylenol] 325 mg Tablet 325 mg PO Q4H PRN (Reason: Pain) RF: 0 amiodarone 200 mg tablet 200 mg PO QAM RF: 0 aspirin 81 mg Tablet,Delayed Release (Dr/Ec) 81 mg PO DAILY RF: 0 acetaminophen [Acetaminophen Extra Strength] 500 mg Tablet 500 mg PO QID RF: 0 tamsulosin 0.4 mg capsule 0.4 mg PO QPM RF: 0 ropinirole 0.5 mg tablet 0.5 mg PO QID RF: 0 docusate sodium 100 mg Capsule 100 mg PO BID RF: 0 gabapentin 100 mg capsule 100 mg PO TID RF: 0 polyethylene glycol 3350 [Miralax] 17 gram/dose Powder 17 g PO TUTHSA RF: 0 fluoxetine 20 mg capsule 20 mg PO QAM RF: 0 finasteride 5 mg tablet 5 mg PO QAM RF: 0 cholecalciferol (vitamin D3) 25 mcg (1,000 unit) capsule 25 mcg PO DAILY RF: 0 chlorhexidine gluconate 0.12 % mouthwash 1 applic PO TID RF: 0 Eliquis 5 mg tablet 5 mg PO BID RF: 0 atorvastatin 80 mg tablet 80 mg PO QAM RF: 0 Tucker 7-7-1.5 gram Powder In Packet 1 ea PO BID RF: 0 clopidogrel 75 mg tablet 75 mg PO DAILY RF: 0 metoprolol tartrate 25 mg tablet 12.5 mg PO DAILY RF: 0 Discharge Orders: Discharge Order (Routine); Ordered 09/19/20 Ordered By: Erum Fuentes Admission Data Admit Date/Time: 09/15/20 13:42 Attending Provider: Erum Fuentes Admit Provider: Suleman Yepez Primary Care Provider: Yanni Ferreira Other Providers: Suleman Yepez ; Jeyson Solano ; [facility]
== END 2020-09-19 16:51 | DRG 727 ==
LOC: ED 09:42 → SUATTDRO 13:42 → 2W 13:42

== ENCOUNTER 2020-11-28 07:33 | Inpatient (IN) ==
--- NOTE | 2020-11-28 07:36 | Emergency Department Note ---
History of Present Illness General Chief complaint: Rectal Bleed Stated complaint: RECTAL BLEED Time Seen by Provider: 11/28/20 07:36 Source: patient, family and RN notes reviewed Mode of arrival: EMS Limitations: other (Cognitive delay) History of Present Illness Provider complaint: Rectal bleeding Flo Sweeney is a 70 y/o M w/ PMHx of CVA w/ residual L hemiplegia, mild cognitive impairment, BPH w/ LUTS, CAD s/p stents, on dual antiplatelet therapy, AFib on Eliquis 5 mg BID who presents from [facility] w/ a day of rectal bleeding (BRBPR).+diarrhea since yesterday. No prior hx of colonoscopy. No family hx of colorectal cancer per chart review. Per note from [facility] staff, patient had 3 episodes of this rectal bleeding today. Patient also endorses rectal bleeding yesterday, but it is unclear from the history as it appears he has some baseline memory impairment. Patient also states he has had hematuria this week. Denies dysuria or other changes in urinary symptoms from baseline. He has mild rectal discomfort that he attributes to the diarrhea. No fever/chills, abdominal pain, N/V, dizziness, blurry vision, palpitations, or fatigue. Patient states he received 4 pills of his home meds this morning, but is unsure what he received. Patient stated he lives at home, but per , he is still a resident at [facility] and has memory issues; HPI may be limited. Per patient's , he has never had colonoscopy. is patient's POA. Home Medications Medication Instructions Recorded Confirmed Type multivitamin (Daily Multi-Vitamin) 1 tab PO QAM 11/03/18 11/28/20 History acetaminophen 325 mg tablet 325 mg PO Q4H PRN 09/15/20 11/28/20 History (Tylenol) acetaminophen 500 mg tablet 500 mg PO QID 09/15/20 11/28/20 History (Acetaminophen Extra Strength) amiodarone 200 mg tablet (Pacerone) 200 mg PO QAM 09/15/20 11/28/20 History apixaban 5 mg tablet (Eliquis) 5 mg PO BID 09/15/20 11/28/20 History aspirin 81 mg tablet,delayed 81 mg PO QAM 09/15/20 11/28/20 History release (Aspirin Low Dose) atorvastatin 80 mg tablet (Lipitor) 80 mg PO QAM 09/15/20 11/28/20 History chlorhexidine gluconate 0.12 % 1 applic PO TID 09/15/20 11/28/20 History mouthwash (Peridex) cholecalciferol (vitamin D3) 25 25 mcg PO QAM 09/15/20 11/28/20 History mcg (1,000 unit) capsule (Vitamin D3) clopidogrel 75 mg tablet (Plavix) 75 mg PO QAM 09/15/20 11/28/20 History docusate sodium 100 mg capsule 100 mg PO BID 09/15/20 11/28/20 History (Colace) finasteride 5 mg tablet (Proscar) 5 mg PO QAM 09/15/20 11/28/20 History fluoxetine 20 mg capsule (Prozac) 20 mg PO QAM 09/15/20 11/28/20 History gabapentin 100 mg capsule 100 mg PO TID 09/15/20 11/28/20 History (Neurontin) metoprolol tartrate 25 mg tablet 12.5 mg PO QAM 09/15/20 11/28/20 History polyethylene glycol 3350 17 17 g PO TUTHSA 09/15/20 11/28/20 History gram/dose oral powder (Miralax) ropinirole 0.5 mg tablet 0.5 mg PO QID 09/15/20 11/28/20 History tamsulosin 0.4 mg capsule (Flomax) 0.4 mg PO QDD 09/15/20 11/28/20 History calcium carbonate 200 mg calcium 500 mg PO BID 11/28/20 11/28/20 History (500 mg) chewable tablet (Calcium Antacid) lisinopril 5 mg tablet (Zestril) 5 mg PO QAM 11/28/20 11/28/20 History Allergies Allergy/AdvReac Type Severity Reaction Status Date / Time No Known Allergies Allergy Verified 11/28/20 08:50 Past Med/Surg History Medical History Benign prostatic hyperplasia with urinary obstruction Bladder calculi BPH (benign prostatic hypertrophy) CAD (coronary artery disease) COPD (chronic obstructive pulmonary disease) Hematuria HTN (hypertension) Hypercholesterolemia UTI (urinary tract infection) Surgical History History of hernia repair S/P drug eluting coronary stent placement S/P PTCA (percutaneous transluminal coronary angioplasty) Family History Denies family history of Ovarian cancer Prostate cancer Myocardial infarction Breast cancer Colorectal cancer Social History Smoking Status: Former smoker Tobacco Type: Cigarettes Hx Alcohol Use: No Hx Substance Use: No Preferred Language: Cameroonian Communication Ability: Effective Communication Ability Comment: Forgetful Grinder Gear Required: No Beliefs That Will Affect Care: None marital status: Current Living Situation: [place] Current Living Situation Comment: [facility] (for rehab per pt) current occupational status: employed and retired current occupation: [employer] Other Information That Helps Us Care for You: No Feels Safe at Home: Yes Safety Concerns: Feels Safe At This Time Dental Care, Regularly: No Physical Activity Frequency: Does not Exercise Assistive Devices: None Review of Systems See HPI for pertinent positives & negatives. and A total of 10 systems reviewed and were otherwise negative Other (May be limited secondary to patient's memory impairment.) Constitutional: Denies fever, chills Eyes: Denies blurry vision, vision changes ENT: + mild rhinorrhea Cardiovascular: Denies Chest pain, chest pressure, palpitations, extremity swelling Respiratory: Denies shortness of breath. + mild cough, chronic Gastrointestinal: Denies abdominal pain, nausea, vomiting, constipation. + diarrhea Genitourinary: + hematuria. Urinary symptoms (mild frequency, urgency, hesitancy) at baseline. No dysuria. Rectal: + bleeding. Musculoskeletal: Denies weakness, muscle aches/pain, joint aches/pain Neurological: Denies headache, numbness, tingling. + baseline L hemiplegia Physical Exam Vital Signs Vital Signs - 24 hr 11/28/20 07:37 11/28/20 07:41 11/28/20 08:18 Temperature 37.1 C Temperature Source Oral Pulse Rate 68 75 Pulse Rate [Apical] Pulse Rate from SpO2 Sensor 68 Pulse Rhythm [Apical] Respiratory Rate 17 20 Respiratory Effort / Characteristics Non-Labored Respiratory Depth Normal Respiratory Pattern Regular Blood Pressure 165/92 H 165/92 H Blood Pressure [Right Arm] Blood Pressure Mean 116 116 Blood Pressure Mean [Right Arm] Blood Pressure Position Sitting Pulse Oximetry 95 97 Oxygen Delivery Method Room Air Room Air Sepsis Recent Fever Within 48 Hours No Sepsis New/Unexplained Change in Mental Status No Sepsis Action Taken by Nursing No Action Required 11/28/20 10:11 11/28/20 11:00 Temperature Temperature Source Pulse Rate 86 Pulse Rate [Apical] 93 H Pulse Rate from SpO2 Sensor 86 Pulse Rhythm [Apical] Regular Respiratory Rate 18 16 Respiratory Effort / Characteristics Non-Labored Respiratory Depth Normal Respiratory Pattern Blood Pressure 147/66 H Blood Pressure [Right Arm] 142/79 H Blood Pressure Mean 93 Blood Pressure Mean [Right Arm] 100 Blood Pressure Position Pulse Oximetry 95 93 Oxygen Delivery Method Room Air Sepsis Recent Fever Within 48 Hours Sepsis New/Unexplained Change in Mental Status Sepsis Action Taken by Nursing General: A&Ox4, however, patient believed he lived at home when he actually lives at [facility]. NAD. Cooperative. HEENT: Atraumatic, normocephalic. EOMI, small pupils, symmetric. Neck supple. Pulm: CTAB. -wheezes, -rales, -rhonchi. Symmetrical chest rise. No respiratory distress. Cardiac: RRR, -mrg. Radial pulses intact and symmetrical. Abdominal: Nontender, nondistended, soft. No suprapubic tenderness. : Carbonator offered, patient declined. Normal external appearance of genitalia, no blood or discharge at meatus. Rectal: Carbonator offered, patient declined. Grossly bloody (bright red) soiled diaper. Bright red blood at rectum w/ slight oozing after exam. No hemorrhoid/fissure visualized. Prostate enlarged on exam, no tenderness to palpation. No masses palpated on rectal exam. No rectal wall tenderness. Neuro: Baseline L hemiplegia. Speech is intact. Course Course Patient was evaluated. He is comfortable. Reevaluation(s) Reevaluation #1: 10:30AM: Rectal exam performed. Spoke to patient's by judy bennett. Blood transfusion consent obtained. Requested admission. Administered Medications Chlorhexidine Gluconate (Chlorhexidine Gluconate 0.12% 480 Ml) 15 ml MT TID@0901,1301,1701 [facility] Stop: 12/28/20 14:30 Last Admin: 11/28/20 15:43 Dose: 15 ml Documented by: [id number] Gabapentin (Gabapentin 100 Mg Cap) 100 mg PO TID [facility] Stop: 12/28/20 14:34 Last Admin: 11/28/20 15:44 Dose: 100 mg Documented by: [id number] Pantoprazole Sodium 40 mg/ (Syringe) 10 mls @ 5 mls/min IV BID [facility] Stop: 12/28/20 11:44 Last Admin: 11/28/20 12:57 Dose: 5 mls/min Documented by: [id number] Ropinirole HCl (Ropinirole Hcl 0.25 Mg Tablet) 0.5 mg PO QID@0901,1301,1701,2101 [facility] Stop: 12/28/20 14:36 Last Admin: 11/28/20 15:44 Dose: 0.5 mg Documented by: [id number] Tamsulosin HCl (Tamsulosin Hcl 0.4 Mg Cap) 0.4 mg PO QDD [facility] Stop: 12/28/20 16:29 Last Admin: 11/28/20 15:44 Dose: 0.4 mg Documented by: [id number] Discontinued Medications Sodium Chloride (Nss) 500 mls @ 999 mls/hr IV .Q31M [facility] Stop: 11/28/20 09:00 Last Infusion: 11/28/20 12:06 Dose: 0 mls/hr Documented by: [id number] Admin: 11/28/20 10:15 Dose: 999 mls/hr Documented by: [id number] Medical Decision Making Differential Diagnosis Lower GI bleed, supratherapeutic anticoagulation, gastroenteritis, prostate bleeding, upper GI bleed (less likely), anal fissure, hemorrhoid, AV malformation, malignancy, diverticulosis, nephrolithiasis, laceration Medical Records Attestation: I reviewed the patient's medical records. Reviewed EMs and [facility] note. Reviewed outpatient CBC (11/28/20 AM) Hb 11.8, Hct 36.6, Plt 156. 6/ Hb was 12.5. Per [facility] note in paper chart, patient is DNR status. Home Medications Current Medication List: was personally reviewed by me Laboratory Data Attestation: I reviewed the patient's lab results. H/H stable. Mario chance. Result diagrams: 11/28/20 09:22 11/28/20 09:22 Lab Results 11/28/20 11/28/20 11/28/20 Range/Units 09:22 09: 09:22 WBC 9.82 (4.8-10.8) K/uL RBC 3.85 L (4.7-6.1) M/uL Hgb 11.7 L (14.0-18.0) g/dL Hct 35.4 L (42-52) % MCV 91.9 (80-100) fL MCH 30.4 (25-34) pg MCHC 33.1 (32-36) g/dL RDW Std Deviation 50.7 H (36.4-46.3) fL RDW Coeff of Markell 15.0 H (11.5-14.5) % Plt Count 182 (130-400) K/uL MPV 10.4 (7.4-10.4) fL Immature Gran % (Auto) 0.1 % Neut % (Auto) 70.6 % Lymph % (Auto) 17.1 % Reagan % (Auto) 5.5 % Eos % (Auto) 6.5 % Baso % (Auto) 0.2 % Neut # (Auto) 6.93 H (1.4-6.5) K/uL Lymph # (Auto) 1.68 (1.2-3.4) K/uL Reagan # (Auto) 0.54 (0.11-0.59) K/uL Eos # (Auto) 0.64 H (0-0.5) K/uL Baso # (Auto) 0.02 (0-0.2) K/uL Immature Gran # (Auto) 0.01 (0.00-0.02) K/uL PT 10.6 (9.0-12.0) Seconds INR 1.0 (0.9-1.1) APTT 24.2 (21.0-31.0) Seconds PTT Ratio 0.9 Sodium 142 (136-145) mmol/L Potassium 4.2 (3.5-5.1) mmol/L Chloride 111 H (98-107) mmol/L Carbon Dioxide 26 (21-32) mmol/L Anion Gap 5.0 (3-11) BUN 23 H (7-18) mg/dl Creatinine 0.88 (0.6-1.4) mg/dl Est Cr Clr Drug Dosing 84.6 ml/min Est GFR ( Amer) 99.5 ml/min Est GFR (Non-Af Amer) 85.8 ml/min BUN/Creatinine Ratio 26.4 H (10-20) Glucose 99 (70-99) mg/dl Calcium 8.9 (8.5-10.1) mg/dl Total Bilirubin 0.5 (0.2-1) mg/dl AST 16 (15-37) U/L ALT 39 (12-78) U/L Alkaline Phosphatase 76 (45-117) U/L Total Protein 6.4 (6.4-8.2) gm/dl Albumin 3.6 (3.4-5.0) gm/dl Globulin 2.8 (2.5-4.0) gm/dl Albumin/Globulin Ratio 1.3 (0.9-2) Blood Type Blood Type Recheck Antibody Screen Crossmatch 11/28/20 11/28/20 Range/Units 09:22 09:25 WBC (4.8-10.8) K/uL RBC (4.7-6.1) M/uL Hgb (14.0-18.0) g/dL Hct (42-52) % MCV (80-100) fL MCH (25-34) pg MCHC (32-36) g/dL RDW Std Deviation (36.4-46.3) fL RDW Coeff of Markell (11.5-14.5) % Plt Count (130-400) K/uL MPV (7.4-10.4) fL Immature Gran % (Auto) % Neut % (Auto) % Lymph % (Auto) % Reagan % (Auto) % Eos % (Auto) % Baso % (Auto) % Neut # (Auto) (1.4-6.5) K/uL Lymph # (Auto) (1.2-3.4) K/uL Reagan # (Auto) (0.11-0.59) K/uL Eos # (Auto) (0-0.5) K/uL Baso # (Auto) (0-0.2) K/uL Immature Gran # (Auto) (0.00-0.02) K/uL PT (9.0-12.0) Seconds INR (0.9-1.1) APTT (21.0-31.0) Seconds PTT Ratio Sodium (136-145) mmol/L Potassium (3.5-5.1) mmol/L Chloride (98-107) mmol/L Carbon Dioxide (21-32) mmol/L Anion Gap (3-11) BUN (7-18) mg/dl Creatinine (0.6-1.4) mg/dl Est Cr Clr Drug Dosing ml/min Est GFR ( Amer) ml/min Est GFR (Non-Af Amer) ml/min BUN/Creatinine Ratio (10-20) Glucose (70-99) mg/dl Calcium (8.5-10.1) mg/dl Total Bilirubin (0.2-1) mg/dl AST (15-37) U/L ALT (12-78) U/L Alkaline Phosphatase (45-117) U/L Total Protein (6.4-8.2) gm/dl Albumin (3.4-5.0) gm/dl Globulin (2.5-4.0) gm/dl Albumin/Globulin Ratio (0.9-2) Blood Type O Positive Blood Type Recheck O Positive Antibody Screen NEGATIVE Crossmatch See Detail ECG Data Additional Comments: ECG from paper chart reviewed. NSR 75 bpm. normal axis. Nonspecific ST-T changes (t wave flattening in several leads). MDM Narrative Patient presented from [facility] for a day of rectal bleeding. An order for cardiac monitoring placed in the is to be in a normal sinus rhythm at 75 bpm. IV access was obtained and laboratory work was drawn. He was given a 500mL bolus of IV NSS, and kept NPO. Labwork was stable compared to 09/19/20 labs, Hb of 11.7. Coags wnl. Normal electroytes and liver and kidney function w/ Cr of 0.88. Stool cultures and ova/parasite ordered but uncollected. Rectal exam revealed smooth enlarged prostate. No masses or tenderness on rectal exam. No hemorrhoids or fissures noted. The rectal bleeding noted on rectal exam was liquid bright red blood and without stool, so suspicion for bloody gastroen teritis is lower. Requested admission to work up rectal bleeding w/ concern for LGIB given dual antiplatelet therapy and Eliquis use. Will hold home Eliquis at this time. Patient's case was discussed with the hospitalist who will evaluate the patient for further management. Impression & Plan Rectal bleeding, GIB (gastrointestinal bleeding), Chronic anticoagulation Discharge Plan Visit Data Chief Complaint: Rectal Bleed Stated Complaint: RECTAL BLEED ED Provider: Shantal Gee ED Midlevel Provider: Brandan Lezama Discharge Problem: Rectal bleeding, GIB (gastrointestinal bleeding), Chronic anticoagulation Patient Disposition: Admitted As Inpatient Discharge Instructions Interventions: ED Discharge Assessment Last Done: 11/28/20 13:37 Resident Activity Tracking Resident Involvement: Resident Care Provided Care Provided: Adult ED Discharge Problem: GIB (gastrointestinal bleeding) Qualifiers: GI bleed type/associated pathology: anorectal hemorrhage Qualified Code(s): K62.5 - Hemorrhage of anus and rectum
[2020-11-28] MEDS ORDERED: SODIUM CHLORIDE 0.9% 250 ML IV PRN (08:28)
[2020-11-28] MEDS ORDERED: SODIUM CHLORIDE 0.9% 500 ML IV SCH (08:30)
[2020-11-28 09:36] LABS: Basophils # (auto) 0.02 K/uL (0-0.2); Basophils % (auto) 0.2 %; Eosinophils # (auto) 0.64 K/uL (0-0.5); Eosinophils % (auto) 6.5 %; Hematocrit (blood only) 35.4 % (42-52); Hemoglobin 11.7 g/dL (14.0-18.0); Immature Granulocytes # (auto) 0.01 K/uL (0.00-0.02); Immature Granulocytes % (auto) 0.1 %; Lymphocytes # (auto) 1.68 K/uL (1.2-3.4); Lymphocytes % (auto) 17.1 %; Mean Corpuscular Hemoglobin 30.4 pg (25-34); Mean Corpuscular Hgb Conc 33.1 g/dL (32-36); Mean Corpuscular Volume 91.9 fL (80-100); Mean Platelet Volume 10.4 fL (7.4-10.4); Monocytes # (auto) 0.54 K/uL (0.11-0.59); Monocytes % (auto) 5.5 %; Neutrophils # (auto) 6.93 K/uL (1.4-6.5); Neutrophils % (auto) 70.6 %; Platelet Count 182 K/uL (130-400); RDW Standard Deviation 50.7 fL (36.4-46.3); Red Blood Count 3.85 M/uL (4.7-6.1); White Blood Count 9.82 K/uL (4.8-10.8)
[2020-11-28 09:49] LABS: Partial Thromboplastin Ratio 0.9; Partial Thromboplastin Time 24.2 Seconds (21.0-31.0); Prothrombin Time 10.6 Seconds (9.0-12.0)
[2020-11-28 09:52] LABS: Albumin Level 3.6 gm/dl (3.4-5.0); BUN Creatinine Ratio 26.4 (10-20); Calcium 8.9 mg/dl (8.5-10.1); Creatinine Clr Calc Pharmacy 84.6 ml/min; Est GFR (African American) 99.5 ml/min; Est GFR (Non-African American) 85.8 ml/min; Potassium 4.2 mmol/L (3.5-5.1)
[2020-11-28 09:55] LABS: Albumin Globulin Ratio 1.3 (0.9-2); Bilirubin,Total 0.5 mg/dl (0.2-1); Globulin 2.8 gm/dl (2.5-4.0); Total Protein 6.4 gm/dl (6.4-8.2)
--- NOTE | 2020-11-28 11:01 | History & Physical Report ---
Date of Service November 28, 2020 Assessment & Plan (1) GI bleed: Plan: - Admit to tele - H&H 11.7/35.4 on admission, will trend to monitor - GI consult for possible needs for colonoscopy- Dr. Blackmon - Hold antiplatelets (baby asa, plavix) also eliquis for hx of DVT in November 2019. - Check ekg now, pt is currently in regular rhythm with tachycardia with HR in low 90s. - Check stat CT abd/pelvis with PO and IV contrast- pt denies abd pain/v/n. (2) CAD (coronary artery disease): Plan: - chronic (3) Atrial fibrillation: Plan: - Continue rate control with metoprolol tartrate, amiodarone. Holding anticoagulation with gi bleed presently. - Will need to discuss with cardiology regarding anticoagulation prior to discharge, with GI regarding when safe to resume anticoagulation. (4) History of CVA (cerebrovascular accident): Plan: - Hx of such, chronic, left hemiplegia, dysarthria is mild, some memory impairment but answers all questions appropriately. - Turn and repo - PT/OT consults - Continue tylenol around the clock for joint pains (5) S/P drug eluting coronary stent placement: Plan: - Hx of such to LAD LAD 2003 and 11/2019 on plavix - as above - EKG as above - Consider cardiology consult (6) HTN (hypertension): Plan: - Cont lisinopril, metoprolol tartrate (7) Hypercholesterolemia: Plan: - Cont atorvastatin 80 mg daily (8) COPD (chronic obstructive pulmonary disease): Plan: - Stable, not on routine inhalers, does not wear O2 at baseline. Currently 93% on RA. (9) BPH (benign prostatic hypertrophy): Plan: - Cont flomax - noted that pt has been following with urology recently with Dr. Solano for hx of hematuria, monitor. (10) DVT prophylaxis: Plan: - teds, scds, holding anticoagulation in the setting of GI bleed. CODE: Full code - discussed with the pt at bedside. Dispo: From home, likely to remain in the hospital x 1-2 days History of Present Illness Primary Care Provider: [facility] This is a 70 yo M with PMhx of left hemiplegia and dysarthria s/p CVA, CAD s/p stent placement LAD 2003 and 11/2019 on plavix, afib on eliquis, chronic systolic CHF, HTN, HLD, COPD, hx of PE 11/29/2019, BPH, severe protein calorie malnutrition, and hx of tobacco use who presents with acute onset of blood per rectum. The patient was recently admitted in September 2020 to the hospital for cellulitis of scrotum and hematuria, urinary tract infection, pneumonia and metabolic encephalopathy from the aforementioned issues. The patient presents with 2 days of diarrhea and blood streaking in brown stool. He thinks he has had BM 2-3 times per day. Denies black tarry stools. He reports there is blood on tissue whenever he wipes. Patient denies any history of hemorrhoids or of ever having a colonoscopy, let alone abnormal results on such. He denies any personal history of gastric or colon cancers as well as family history of such. He denies any abdominal pain, cramping, nausea or vomiting. He does not endorse lightheadedness, dizziness. Patient ambulation is limited due to his history of CVA and left hemiparetic plegia, reports that he is able to use a walker/cane with nursing assistance. He has not walked much in the past 2 days due to not wanting to be a bother to nursing. He last took his morning medications this morning, however patient is unaware of his medications and states "I just take what they give me". He does know that he is on some blood thinners. Allergies Allergy/AdvReac Type Severity Reaction Status Date / Time No Known Allergies Allergy Verified 11/28/20 08:50 Home Medications Medication Instructions Recorded Confirmed Type multivitamin (Daily Multi-Vitamin) 1 tab PO QAM 11/03/18 11/28/20 History acetaminophen 325 mg tablet 325 mg PO Q4H PRN 09/15/20 11/28/20 History (Tylenol) acetaminophen 500 mg tablet 500 mg PO QID 09/15/20 11/28/20 History (Acetaminophen Extra Strength) amiodarone 200 mg tablet (Pacerone) 200 mg PO QAM 09/15/20 11/28/20 History apixaban 5 mg tablet (Eliquis) 5 mg PO BID 09/15/20 11/28/20 History aspirin 81 mg tablet,delayed 81 mg PO QAM 09/15/20 11/28/20 History release (Aspirin Low Dose) atorvastatin 80 mg tablet (Lipitor) 80 mg PO QAM 09/15/20 11/28/20 History chlorhexidine gluconate 0.12 % 1 applic PO TID 09/15/20 11/28/20 History mouthwash (Peridex) cholecalciferol (vitamin D3) 25 25 mcg PO QAM 09/15/20 11/28/20 History mcg (1,000 unit) capsule (Vitamin D3) clopidogrel 75 mg tablet (Plavix) 75 mg PO QAM 09/15/20 11/28/20 History docusate sodium 100 mg capsule 100 mg PO BID 09/15/20 11/28/20 History (Colace) finasteride 5 mg tablet (Proscar) 5 mg PO QAM 09/15/20 11/28/20 History fluoxetine 20 mg capsule (Prozac) 20 mg PO QAM 09/15/20 11/28/20 History gabapentin 100 mg capsule 100 mg PO TID 09/15/20 11/28/20 History (Neurontin) metoprolol tartrate 25 mg tablet 12.5 mg PO QAM 09/15/20 11/28/20 History polyethylene glycol 3350 17 17 g PO TUTHSA 09/15/20 11/28/20 History gram/dose oral powder (Miralax) ropinirole 0.5 mg tablet 0.5 mg PO QID 09/15/20 11/28/20 History tamsulosin 0.4 mg capsule (Flomax) 0.4 mg PO QDD 09/15/20 11/28/20 History calcium carbonate 200 mg calcium 500 mg PO BID 11/28/20 11/28/20 History (500 mg) chewable tablet (Calcium Antacid) lisinopril 5 mg tablet (Zestril) 5 mg PO QAM 11/28/20 11/28/20 History Past Med/Surg History Medical History Benign prostatic hyperplasia with urinary obstruction Bladder calculi BPH (benign prostatic hypertrophy) CAD (coronary artery disease) COPD (chronic obstructive pulmonary disease) Hematuria HTN (hypertension) Hypercholesterolemia UTI (urinary tract infection) Surgical History History of hernia repair S/P drug eluting coronary stent placement S/P PTCA (percutaneous transluminal coronary angioplasty) Family History Denies family history of Ovarian cancer Prostate cancer Myocardial infarction Breast cancer Colorectal cancer Social History Smoking Status: Former smoker Tobacco Type: Cigarettes Hx Alcohol Use: No Hx Substance Use: No Preferred Language: Kiswahili Communication Ability: Effective Communication Ability Comment: 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 Beliefs That Will Affect Care: None marital status: Current Living Situation: Long Term Current Living Situation Comment: [facility] (for rehab per pt) current occupational status: employed and retired current occupation: [employer] Other Information That Helps Us Care for You: No Feels Safe at Home: Yes Safety Concerns: Feels Safe At This Time Dental Care, Regularly: No Physical Activity Frequency: Does not Exercise Assistive Devices: None Review of Systems Review of Systems: Constitutional: No fever, sweats or chills, no lightheadedness or dizziness Eyes: No diplopia, no worsening or blurred vision ENT: normal hearing, no trouble swallowing Respiratory: No cough, sputum, dyspnea at rest or on exertion Cardiovascular: No chest pain, tightness or palpitations Abdomen: + As per HPI, + blood streaking and brown stool, no black tarry stools, no pain, nausea, vomiting, or constipation Musculoskeletal: No joint pain, calf pain, swelling Neurologic: + Left-sided weakness, no numbness/tingling, + balance problems Psychiatric: + depression Skin: No rash or itch Physical Exam Physical Exam: General: awake, alert, no apparent distress Head: Normocephalic, atraumatic ENT: PERRL, EOMI, no pharyngeal exudate, mucous membranes moist Chest: Clear to auscultation, on room air, no adventitious breath sounds Cardiac: Regular rhythm, heart rate in the mid 90s, no murmur, no JVD, normal peripheral pulses, good capillary refill Abdominal: NABS x 4 quadrants, soft, nondistended, nontender to palpation, no rebound or guarding Extremities: Normal inspection, + chronic venous stasis changes bilaterally, no peripheral edema or erythema, calfs nontender to palpation, + contracture left hand and muscular atrophy left lower extremity Psych: Normal mood, flat affect Neuro: AAO x 3, left hemiplegia, speech is sometimes delayed, clear, no peripheral sensory deficits Results & Data Results & Data ([facility]) Vital Signs (Past 12 Hours) Vital Signs Temp Pulse Resp BP Pulse Ox 11/28/20 10:11 86 18 147/66 H 95 11/28/20 07:41 37.1 C 75 20 165/92 H 97 11/28/20 07:37 68 17 165/92 H 95 Laboratory Results Short CBC 11/28/20 Range/Units 09:22 WBC 9.82 (4.8-10.8) K/uL Hgb 11.7 L (14.0-18.0) g/dL Hct 35.4 L (42-52) % Plt Count 182 (130-400) K/uL BMP 11/28/20 09:22 Sodium 142 Potassium 4.2 Chloride 111 H Carbon Dioxide 26 BUN 23 H Creatinine 0.88 Glucose 99 Calcium 8.9 Liver Function 11/28/20 Range/Units 09:22 Total Bilirubin 0.5 (0.2-1) mg/dl AST 16 (15-37) U/L ALT 39 (12-78) U/L Alkaline Phosphatase 76 (45-117) U/L Albumin 3.6 (3.4-5.0) gm/dl Code Status & VTE Plan Code Status Full code-discussed with the patient at bedside Supervising Physician Co-Signing Physician Notes Attending addendum: The patient was seen and examined in telemetry unit He has been having ongoing bright red rectal bleeding since admission which is very foul-smelling He feels generally weak but denies any abdominal pain, nausea and or vomiting He has been having diarrhea for the last 2 days prior to admission Denies any other symptoms On examination No apparent distress in bed Has minimal tachycardia at 101/min but otherwise hemodynamically stable Chest-decreased breath sounds bilaterally without any crackles and/or wheezing Heart-S1, S2 regular Abdomen-not distended, nontender, bowel sounds present Extremities-negative for any edema 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 Generally weak and has left hemiparesis from prior stroke His admission labs, EKG and imaging studies reviewed Has ongoing diarrhea with bright red rectal bleed since yesterday,CK stool for C Diff, Culture Hemoglobin remained stable so far and will get H&H every [address] scan did not show any significant change except possible stercoral colitis GI has been consulted Agree with assessment and plan as outlined above by JOEY Schumacher Dr (1) BPH (benign prostatic hypertrophy) Lower urinary tract symptom presence: symptoms absent Qualified Code(s): N40.0 - Benign prostatic hyperplasia without lower urinary tract symptoms (2) CAD (coronary artery disease) Associated angina: without angina Coronary Disease-Associated Artery/Lesion type: [place] artery [place] vs. transplanted heart: [place] heart Qualified Code(s): I25.10 - Atherosclerotic heart disease of [place] coronary artery without angina pectoris (3) HTN (hypertension) Hypertension type: essential hypertension Qualified Code(s): I10 - Essential (primary) hypertension
[2020-11-28] MEDS: PANTOprazole 40 MG in SYRINGE 0 ML IV SCH ×2 (12:57→21:04)
[2020-11-28] MEDS ORDERED: ONDANSETRON INJ 2 MG/ML 2 ML VIAL IV PRN (14:22)
[2020-11-28] MEDS ORDERED: ACETAMINOPHEN 325 MG TAB PO PRN (14:22)
--- NOTE | 2020-11-28 15:09 | CT Scan Report ---
CT abd pelvis oral and IV con CLINICAL HISTORY: Gi bleed COMPARISON STUDY: 09/15/2020 TECHNIQUE: Patient was scanned following administration of dilute oral contrast, and in a dynamic hel ical fashion during intravenous administration of 125 cc of Optiray 320. A dose lowering technique w as utilized adhering to the principles of ALARA. The study is limited from a technical standpoint as the patient has contractions and was unable to follow instructions. CT DOSE: 793.99 mGy.cm FINDINGS: Lower chest: There is elevation left hemidiaphragm. The entire spleen was not visualized on this stud y. There is suspected pulmonary emphysema Liver: There is a 9 mm hypodense hepatic lesion near the junction of the right and left lobes. This i s likely represents a cyst. Gallbladder: Unremarkable. Spleen: Partially visualized. No splenic masses identified Pancreas: Unremarkable. Adrenal glands: Unremarkable. Kidneys: There is left-sided nephrolithiasis. There is a left renal cyst. There is no hydronephrosis Bowel: There are no transition zones indicate bowel obstruction. There is moderate rectal stool, and there is rectal wall thickening. Stercoral colitis not excluded there are no findings to indicate acu te appendicitis however evaluation is significantly limited this regard due to motion artifact. Peritoneum: There is no intraperitoneal free air or abdominal ascites. There is a small fat-containin g right inguinal hernia. Vasculature: The abdominal aorta is normal in course and caliber. Adenopathy: None. Pelvic viscera: There is a filling defect within the bladder, likely secondary to an enlarged prostat e. There are layering bladder calculi. Skeletal structures: No destructive osseous lesions are seen. IMPRESSION: 1. Technically limited study 2. No evidence of bowel obstruction. No evidence of free air 3. Left-sided nephrolithiasis 4. Moderate stool within the rectum. Mild rectal wall thickening. Stercoral colitis not excluded 5. Layering bladder calculi. 6. Large bladder base mass which while nonspecific statistically represents an enlarged prostate. Cli nical correlation in this regard recommended ACT 112: Negative or not required by law. Electronically signed by: Lb Danielle M.D. 11/28/2020 3:08 PM
[2020-11-28] MEDS: CHLORHEXIDINE GLUCONATE 0.12% 480 ML MT SCH ×2 (15:43→17:35)
[2020-11-28] MEDS: TAMSULOSIN HCL 0.4 MG CAP PO SCH (15:44)
[2020-11-28] MEDS: GABAPENTIN 100 MG CAP PO SCH ×2 (15:44→20:43)
[2020-11-28] MEDS: rOPINIRole HCL 0.25 MG TABLET PO SCH ×3 (15:44→20:42)
--- NOTE | 2020-11-28 15:47 | Electrocardiogram Report ---
Test Reason : Blood Pressure : / mmHG Vent. Rate : 075 BPM Atrial Rate : 075 BPM P-R Int : 172 ms QRS Dur : 096 ms QT Int : 414 ms P-R-T Axes : 097 -04 067 degrees QTc Int : 462 ms Normal sinus rhythm Nonspecific ST and T wave abnormality Abnormal ECG When compared with ECG of 15-SEP-2020 11:14, No significant change was found Confirmed by Adarsh Connolly ([id number]) on 11/28/2020 3:46:57 PM Referred By: Yanni Hood Confirmed By:Adarsh Connolly
[2020-11-28 17:25] LABS: Hematocrit (blood only) 28.1 % (42-52); Hemoglobin 9.3 g/dL (14.0-18.0)
[2020-11-28] MEDS: ACETAMINOPHEN 500 MG TAB PO SCH ×2 (17:36→20:43)
[2020-11-28] MEDS: SODIUM CHLORIDE 0.9% 500 ML IV SCH ×3 (18:45→21:07)
[2020-11-28] MEDS: SODIUM CHLORIDE 0.9% 1000ML 1,000 ML IV SCH (19:17)
[2020-11-28 23:00] LABS: Hematocrit (blood only) 24.4 % (42-52)
[2020-11-29] MEDS ORDERED: SODIUM CHLORIDE 0.9% 250 ML IV PRN ×3 (00:39→17:11)
[2020-11-29] MEDS ORDERED: FUROSEMIDE 20 MG in SYRINGE 0 ML IV ONE (03:00)
[2020-11-29] MEDS: SODIUM CHLORIDE 0.9% 1000ML 1,000 ML IV SCH ×3 (03:25→22:03)
[2020-11-29 07:09] LABS: Appearance Urine Cloudy (Clear); Bacteria Urine Automated 2+ (Negative); Bilirubin Urine Negative (Negative); Blood Urine 1+ (Negative); Color Urine Yellow; Epithelial Cell Urine Auto 20-30 /lpf (0-5); Glucose Urine UA Negative (Negative); Ketones Urine Trace (Negative); Leukocyte Esterase Urine 1+ (Negative); Nitrite Urine Negative (Negative); Protein Urine 1+ (Negative); RBC Urine Automated 0-4 /hpf (0-4); Specific Gravity Urine > 1.045 (1.000-1.030); Urobilinogen Urine Negative (Negative); WBC Urine Automated >30 /hpf (0-5)
[2020-11-29 07:19] LABS: Calcium Oxalate Crystals Urine Present (None Prsent)
[2020-11-29] MEDS: PANTOprazole 40 MG in SYRINGE 0 ML IV SCH ×2 (08:17→22:06)
[2020-11-29 08:33] LABS: Basophils # (auto) 0.02 K/uL (0-0.2); Basophils % (auto) 0.2 %; Eosinophils # (auto) 0.05 K/uL (0-0.5); Eosinophils % (auto) 0.5 %; Hematocrit (blood only) 24.8 % (42-52); Hemoglobin 8.2 g/dL (14.0-18.0); Immature Granulocytes # (auto) 0.02 K/uL (0.00-0.02); Immature Granulocytes % (auto) 0.2 %; Lymphocytes # (auto) 1.93 K/uL (1.2-3.4); Lymphocytes % (auto) 18.4 %; Mean Corpuscular Hemoglobin 30.1 pg (25-34); Mean Corpuscular Hgb Conc 33.1 g/dL (32-36); Mean Corpuscular Volume 91.2 fL (80-100); Mean Platelet Volume 10.4 fL (7.4-10.4); Monocytes % (auto) 6.7 %; Neutrophils # (auto) 7.75 K/uL (1.4-6.5); Platelet Count 182 K/uL (130-400); RDW Coefficient of Variation 14.8 % (11.5-14.5); RDW Standard Deviation 48.4 fL (36.4-46.3); Red Blood Count 2.72 M/uL (4.7-6.1); White Blood Count 10.47 K/uL (4.8-10.8)
[2020-11-29 08:52] LABS: Albumin Level 2.7 gm/dl (3.4-5.0); Calcium 7.9 mg/dl (8.5-10.1); Creatinine Clr Calc Pharmacy 67.8 ml/min; Est GFR (African American) 78.2 ml/min; Est GFR (Non-African American) 67.5 ml/min; Potassium 4.8 mmol/L (3.5-5.1)
[2020-11-29 08:59] LABS: Albumin Globulin Ratio 1.4 (0.9-2); Bilirubin,Total 0.6 mg/dl (0.2-1); Total Protein 4.7 gm/dl (6.4-8.2)
[2020-11-29] MEDS ORDERED: lisinopril 5 MG TAB PO SCH (09:00)
--- NOTE | 2020-11-29 09:06 | Hospitalist Progress Note ---
Date of Service November 29, 2020 Assessment & Plan (1) GI bleed: Plan: - H&H 11.7/35.4 on admission, will trend to monitor - Hgb 8.0 overnight -2 units of packed red blood cells ordered overnight - GI consult for possible needs for colonoscopy- Dr. Blackmon - Patient underwent upper endoscopy today, November 29, which was unremarkable - Plan for colonoscopy tomorrow, November 30 - Hold antiplatelets (baby asa, plavix) also eliquis for hx of DVT in November 2019. - Check ekg, pt is currently in regular rhythm with tachycardia with HR in low 90s. - Check CT abd/pelvis with PO and IV contrast- pt denies abd pain/v/n. (2) CAD (coronary artery disease): Plan: - chronic, no acute issues (3) Atrial fibrillation: Plan: - Continue rate control with metoprolol tartrate, amiodarone. Holding anticoagulation with GIi bleed presently. - Will need to discuss with cardiology regarding anticoagulation prior to discharge, with GI regarding when safe to resume anticoagulation. (4) History of CVA (cerebrovascular accident): Plan: - Hx of such, chronic, left hemiplegia, dysarthria is mild, some memory impairment but answers all questions appropriately. - Turn and repo - PT/OT consults - Continue tylenol around the clock for joint pains (5) S/P drug eluting coronary stent placement: Plan: - Hx of such to LAD LAD 2003 and 11/2019 on plavix - as above - EKG as above - Consider cardiology consult (6) HTN (hypertension): Plan: - Cont lisinopril, metoprolol tartrate (7) Hypercholesterolemia: Plan: - Cont atorvastatin 80 mg daily (8) COPD (chronic obstructive pulmonary disease): Plan: - Stable, not on routine inhalers, does not wear O2 at baseline. Currently 93% on RA. (9) BPH (benign prostatic hypertrophy): Plan: - Cont flomax - noted that pt has been following with urology recently with Dr. Solano for hx of hematuria, monitor. Poss. UTI UA concerning for UTI, start empiric Rocephin, follow urine culture (10) DVT prophylaxis: Plan: - teds, scds, holding anticoagulation in the setting of GI bleed. CODE: Full code - discussed with the pt at bedside. Dispo: From home, likely to remain in the hospital x 1-2 days Admission and Anticipated Discharge Date Admission Date: November 28, 2020 Subjective Patient seen in follow-up of GI bleed Underwent upper endoscopy today, plan for colonoscopy tomorrow Received 2 units of packed red blood cells overnight as hemoglobin dropped to 8 last night Currently laying in bed, in no acute distress, breathing comfortably on room air, denies any abdominal pain Per nursing staff, patient had several bloody bowel movements Denies chest pain shortness of breath Review of Systems Review of Systems: All systems reviewed & are unremarkable except as noted in HPI & below Physical Exam Physical Exam: General: awake, alert, no apparent distress Head: Normocephalic, atraumatic ENT: PERRL, EOMI, no pharyngeal exudate, mucous membranes moist Chest: Clear to auscultation, on room air, no adventitious breath sounds Cardiac: Regular rhythm, heart rate in the mid 90s, no murmur, no JVD, normal peripheral pulses, good capillary refill Abdominal: NABS x 4 quadrants, soft, nondistended, nontender to palpation, no rebound or guarding Extremities: Normal inspection, + chronic venous stasis changes bilaterally, no peripheral edema or erythema, calves nontender to palpation, + contracture left hand and muscular atrophy left lower extremity Psych: Normal mood, flat affect Neuro: AAO x 3, left hemiplegia, speech is sometimes delayed, clear, no peripheral sensory deficits Results & Data Results & Data ([facility]) Vital Signs (Past 12 Hours) Vital Signs Temp Pulse Pulse Resp BP BP Pulse Ox 11/29/20 06:47 36.3 C L 85 18 120/74 99 11/29/20 05:45 36.9 C 77 18 118/74 98 11/29/20 04:46 36.9 C 75 18 116/83 95 11/29/20 04:44 36.9 C 74 15 98/58 L 93 11/29/20 04:27 36.7 C 74 15 92/57 L 94 11/29/20 04:16 36.7 C 74 18 95/59 L 93 11/29/20 04:01 36.8 C 84 16 108/66 91 11/29/20 03:45 36.6 C 82 17 112/61 91 11/29/20 03:42 36.6 C 76 17 112/61 91 11/29/20 02:29 36.7 C 82 20 106/68 97 11/29/20 01:59 37.0 C 96 H 16 111/76 96 11/29/20 01:44 37.2 C 77 16 98/61 L 96 11/29/20 01:26 36.8 C 80 14 88/53 L 93 11/28/20 23:51 36.4 C L 83 18 92/59 L 94 Laboratory Results 11/29/20 11/29/20 11/29/20 Range/Units 08:18 08:18 06:35 WBC 10.47 (4.8-10.8) K/uL RBC 2.72 L (4.7-6.1) M/uL Hgb 8.2 L (14.0-18.0) g/dL Hct 24.8 L (42-52) % MCV 91.2 (80-100) fL MCH 30.1 (25-34) pg MCHC 33.1 (32-36) g/dL RDW Std Deviation 48.4 H (36.4-46.3) fL RDW Coeff of [place] 14.8 H (11.5-14.5) % Plt Count 182 (130-400) K/uL MPV 10.4 (7.4-10.4) fL Immature Gran % (Auto) 0.2 % Neut % (Auto) 74.0 % Lymph % (Auto) 18.4 % [place] % (Auto) 6.7 % Eos % (Auto) 0.5 % Baso % (Auto) 0.2 % Neut # (Auto) 7.75 H (1.4-6.5) K/uL Lymph # (Auto) 1.93 (1.2-3.4) K/uL [place] # (Auto) 0.70 H (0.11-0.59) K/uL Eos # (Auto) 0.05 (0-0.5) K/uL Baso # (Auto) 0.02 (0-0.2) K/uL Immature Gran # (Auto) 0.02 (0.00-0.02) K/uL PT (9.0-12.0) Seconds INR (0.9-1.1) APTT (21.0-31.0) Seconds PTT Ratio Sodium 141 (136-145) mmol/L Potassium 4.8 (3.5-5.1) mmol/L Chloride 113 H (98-107) mmol/L Carbon Dioxide 21 (21-32) mmol/L Anion Gap 7.0 (3-11) BUN 29 H (7-18) mg/dl Creatinine 1.09 (0.6-1.4) mg/dl Est Cr Clr Drug Dosing 67.8 ml/min Est GFR ( Amer) 78.2 ml/min Est GFR (Non-Af Amer) 67.5 ml/min BUN/Creatinine Ratio 27.0 H (10-20) Glucose 116 H (70-99) mg/dl Calcium 7.9 L (8.5-10.1) mg/dl Total Bilirubin 0.6 (0.2-1) mg/dl AST 9 L (15-37) U/L ALT 23 (12-78) U/L Alkaline Phosphatase 54 (45-117) U/L Total Protein 4.7 L D (6.4-8.2) gm/dl Albumin 2.7 L (3.4-5.0) gm/dl Globulin 2.0 L (2.5-4.0) gm/dl Albumin/Globulin Ratio 1.4 (0.9-2) Urine Color Yellow Urine Appearance Cloudy A (Clear) Urine pH 5.0 (4.5-7.5) Ur Specific [place] > 1.045 H (1.000-1.030) Urine Protein 1+ H (Negative) Urine Glucose (UA) Negative (Negative) Urine Ketones Trace H (Negative) Urine Blood 1+ H (Negative) Urine Nitrite Negative (Negative) Urine Bilirubin Negative (Negative) Urine Urobilinogen Negative (Negative) Ur Leukocyte Esterase 1+ H (Negative) Urine WBC (Auto) >30 H (0-5) /hpf Urine RBC (Auto) 0-4 (0-4) /hpf U Hyaline Cast (Auto) 10-30 H (0-5) /lpf U Epithel Cells (Auto) 20-30 H (0-5) /lpf Urine Bacteria (Auto) 2+ H (Negative) Calcium Oxalate Crystal Present A (None Prsent) Granular Casts 1-5 H (0) /lpf Urine Yeast Not Reportable Stool Comments COVID-19 Eval Order SARS-CoV-2 (PCR) (Negative) Blood Type Blood Type Recheck Antibody Screen Crossmatch 11/28/20 11/28/20 11/28/20 Range/Units 22:36 17:13 12:04 WBC (4.8-10.8) K/uL RBC (4.7-6.1) M/uL Hgb 8.0 L 9.3 L (14.0-18.0) g/dL Hct 24.4 L 28.1 L (42-52) % MCV (80-100) fL MCH (25-34) pg MCHC (32-36) g/dL RDW Std Deviation (36.4-46.3) fL RDW Coeff of [place] (11.5-14.5) % Plt Count (130-400) K/uL MPV (7.4-10.4) fL Immature Gran % (Auto) % Neut % (Auto) % Lymph % (Auto) % [place] % (Auto) % Eos % (Auto) % Baso % (Auto) % Neut # (Auto) (1.4-6.5) K/uL Lymph # (Auto) (1.2-3.4) K/uL [place] # (Auto) (0.11-0.59) K/uL Eos # (Auto) (0-0.5) K/uL Baso # (Auto) (0-0.2) K/uL Immature Gran # (Auto) (0.00-0.02) K/uL PT (9.0-12.0) Seconds INR (0.9-1.1) APTT (21.0-31.0) Seconds PTT Ratio Sodium (136-145) mmol/L Potassium (3.5-5.1) mmol/L Chloride (98-107) mmol/L Carbon Dioxide (21-32) mmol/L Anion Gap (3-11) BUN (7-18) mg/dl Creatinine (0.6-1.4) mg/dl Est Cr Clr Drug Dosing ml/min Est GFR ( Amer) ml/min Est GFR (Non-Af Amer) ml/min BUN/Creatinine Ratio (10-20) Glucose (70-99) mg/dl Calcium (8.5-10.1) mg/dl Total Bilirubin (0.2-1) mg/dl AST (15-37) U/L ALT (12-78) U/L Alkaline Phosphatase (45-117) U/L Total Protein (6.4-8.2) gm/dl Albumin (3.4-5.0) gm/dl Globulin (2.5-4.0) gm/dl Albumin/Globulin Ratio (0.9-2) Urine Color Urine Appearance (Clear) Urine pH (4.5-7.5) Ur Specific [place] (1.000-1.030) Urine Protein (Negative) Urine Glucose (UA) (Negative) Urine Ketones (Negative) Urine Blood (Negative) Urine Nitrite (Negative) Urine Bilirubin (Negative) Urine Urobilinogen (Negative) Ur Leukocyte Esterase (Negative) Urine WBC (Auto) (0-5) /hpf Urine RBC (Auto) (0-4) /hpf U Hyaline Cast (Auto) (0-5) /lpf U Epithel Cells (Auto) (0-5) /lpf Urine Bacteria (Auto) (Negative) Calcium Oxalate Crystal (None Prsent) Granular Casts (0) /lpf Urine Yeast Stool Comments Pending COVID-19 Eval Order SARS-CoV-2 (PCR) (Negative) Blood Type Blood Type Recheck Antibody Screen Crossmatch 11/28/20 11/28/20 11/28/20 Range/Units 11:40 11:40 09:25 WBC (4.8-10.8) K/uL RBC (4.7-6.1) M/uL Hgb (14.0-18.0) g/dL Hct (42-52) % MCV (80-100) fL MCH (25-34) pg MCHC (32-36) g/dL RDW Std Deviation (36.4-46.3) fL RDW Coeff of [place] (11.5-14.5) % Plt Count (130-400) K/uL MPV (7.4-10.4) fL Immature Gran % (Auto) % Neut % (Auto) % Lymph % (Auto) % [place] % (Auto) % Eos % (Auto) % Baso % (Auto) % Neut # (Auto) (1.4-6.5) K/uL Lymph # (Auto) (1.2-3.4) K/uL [place] # (Auto) (0.11-0.59) K/uL Eos # (Auto) (0-0.5) K/uL Baso # (Auto) (0-0.2) K/uL Immature Gran # (Auto) (0.00-0.02) K/uL PT (9.0-12.0) Seconds INR (0.9-1.1) APTT (21.0-31.0) Seconds PTT Ratio Sodium (136-145) mmol/L Potassium (3.5-5.1) mmol/L Chloride (98-107) mmol/L Carbon Dioxide (21-32) mmol/L Anion Gap (3-11) BUN (7-18) mg/dl Creatinine (0.6-1.4) mg/dl Est Cr Clr Drug Dosing ml/min Est GFR ( Amer) ml/min Est GFR (Non-Af Amer) ml/min BUN/Creatinine Ratio (10-20) Glucose (70-99) mg/dl Calcium (8.5-10.1) mg/dl Total Bilirubin (0.2-1) mg/dl AST (15-37) U/L ALT (12-78) U/L Alkaline Phosphatase (45-117) U/L Total Protein (6.4-8.2) gm/dl Albumin (3.4-5.0) gm/dl Globulin (2.5-4.0) gm/dl Albumin/Globulin Ratio (0.9-2) Urine Color Urine Appearance (Clear) Urine pH (4.5-7.5) Ur Specific [place] (1.000-1.030) Urine Protein (Negative) Urine Glucose (UA) (Negative) Urine Ketones (Negative) Urine Blood (Negative) Urine Nitrite (Negative) Urine Bilirubin (Negative) Urine Urobilinogen (Negative) Ur Leukocyte Esterase (Negative) Urine WBC (Auto) (0-5) /hpf Urine RBC (Auto) (0-4) /hpf U Hyaline Cast (Auto) (0-5) /lpf U Epithel Cells (Auto) (0-5) /lpf Urine Bacteria (Auto) (Negative) Calcium Oxalate Crystal (None Prsent) Granular Casts (0) /lpf Urine Yeast Stool Comments COVID-19 Eval Order Covid19 at [facility] SARS-CoV-2 (PCR) NEGATIVE (Negative) Blood Type Blood Type Recheck O Positive Antibody Screen Crossmatch 11/28/20 11/28/20 11/28/20 Range/Units 09:22 09:22 09:22 WBC (4.8-10.8) K/uL RBC (4.7-6.1) M/uL Hgb (14.0-18.0) g/dL Hct (42-52) % MCV (80-100) fL MCH (25-34) pg MCHC (32-36) g/dL RDW Std Deviation (36.4-46.3) fL RDW Coeff of [place] (11.5-14.5) % Plt Count (130-400) K/uL MPV (7.4-10.4) fL Immature Gran % (Auto) % Neut % (Auto) % Lymph % (Auto) % [place] % (Auto) % Eos % (Auto) % Baso % (Auto) % Neut # (Auto) (1.4-6.5) K/uL Lymph # (Auto) (1.2-3.4) K/uL [place] # (Auto) (0.11-0.59) K/uL Eos # (Auto) (0-0.5) K/uL Baso # (Auto) (0-0.2) K/uL Immature Gran # (Auto) (0.00-0.02) K/uL PT 10.6 (9.0-12.0) Seconds INR 1.0 (0.9-1.1) APTT 24.2 (21.0-31.0) Seconds PTT Ratio 0.9 Sodium 142 (136-145) mmol/L Potassium 4.2 (3.5-5.1) mmol/L Chloride 111 H (98-107) mmol/L Carbon Dioxide 26 (21-32) mmol/L Anion Gap 5.0 (3-11) BUN 23 H (7-18) mg/dl Creatinine 0.88 (0.6-1.4) mg/dl Est Cr Clr Drug Dosing 84.6 ml/min Est GFR ( Amer) 99.5 ml/min Est GFR (Non-Af Amer) 85.8 ml/min BUN/Creatinine Ratio 26.4 H (10-20) Glucose 99 (70-99) mg/dl Calcium 8.9 (8.5-10.1) mg/dl Total Bilirubin 0.5 (0.2-1) mg/dl AST 16 (15-37) U/L ALT 39 (12-78) U/L Alkaline Phosphatase 76 (45-117) U/L Total Protein 6.4 (6.4-8.2) gm/dl Albumin 3.6 (3.4-5.0) gm/dl Globulin 2.8 (2.5-4.0) gm/dl Albumin/Globulin Ratio 1.3 (0.9-2) Urine Color Urine Appearance (Clear) Urine pH (4.5-7.5) Ur Specific [place] (1.000-1.030) Urine Protein (Negative) Urine Glucose (UA) (Negative) Urine Ketones (Negative) Urine Blood (Negative) Urine Nitrite (Negative) Urine Bilirubin (Negative) Urine Urobilinogen (Negative) Ur Leukocyte Esterase (Negative) Urine WBC (Auto) (0-5) /hpf Urine RBC (Auto) (0-4) /hpf U Hyaline Cast (Auto) (0-5) /lpf U Epithel Cells (Auto) (0-5) /lpf Urine Bacteria (Auto) (Negative) Calcium Oxalate Crystal (None Prsent) Granular Casts (0) /lpf Urine Yeast Stool Comments COVID-19 Eval Order SARS-CoV-2 (PCR) (Negative) Blood Type O Positive Blood Type Recheck Antibody Screen NEGATIVE Crossmatch See Detail 11/28/20 Range/Units 09:22 WBC 9.82 (4.8-10.8) K/uL RBC 3.85 L (4.7-6.1) M/uL Hgb 11.7 L (14.0-18.0) g/dL Hct 35.4 L (42-52) % MCV 91.9 (80-100) fL MCH 30.4 (25-34) pg MCHC 33.1 (32-36) g/dL RDW Std Deviation 50.7 H (36.4-46.3) fL RDW Coeff of [place] 15.0 H (11.5-14.5) % Plt Count 182 (130-400) K/uL MPV 10.4 (7.4-10.4) fL Immature Gran % (Auto) 0.1 % Neut % (Auto) 70.6 % Lymph % (Auto) 17.1 % [place] % (Auto) 5.5 % Eos % (Auto) 6.5 % Baso % (Auto) 0.2 % Neut # (Auto) 6.93 H (1.4-6.5) K/uL Lymph # (Auto) 1.68 (1.2-3.4) K/uL [place] # (Auto) 0.54 (0.11-0.59) K/uL Eos # (Auto) 0.64 H (0-0.5) K/uL Baso # (Auto) 0.02 (0-0.2) K/uL Immature Gran # (Auto) 0.01 (0.00-0.02) K/uL PT (9.0-12.0) Seconds INR (0.9-1.1) APTT (21.0-31.0) Seconds PTT Ratio Sodium (136-145) mmol/L Potassium (3.5-5.1) mmol/L Chloride (98-107) mmol/L Carbon Dioxide (21-32) mmol/L Anion Gap (3-11) BUN (7-18) mg/dl Creatinine (0.6-1.4) mg/dl Est Cr Clr Drug Dosing ml/min Est GFR ( Amer) ml/min Est GFR (Non-Af Amer) ml/min BUN/Creatinine Ratio (10-20) Glucose (70-99) mg/dl Calcium (8.5-10.1) mg/dl Total Bilirubin (0.2-1) mg/dl AST (15-37) U/L ALT (12-78) U/L Alkaline Phosphatase (45-117) U/L Total Protein (6.4-8.2) gm/dl Albumin (3.4-5.0) gm/dl Globulin (2.5-4.0) gm/dl Albumin/Globulin Ratio (0.9-2) Urine Color Urine Appearance (Clear) Urine pH (4.5-7.5) Ur Specific [place] (1.000-1.030) Urine Protein (Negative) Urine Glucose (UA) (Negative) Urine Ketones (Negative) Urine Blood (Negative) Urine Nitrite (Negative) Urine Bilirubin (Negative) Urine Urobilinogen (Negative) Ur Leukocyte Esterase (Negative) Urine WBC (Auto) (0-5) /hpf Urine RBC (Auto) (0-4) /hpf U Hyaline Cast (Auto) (0-5) /lpf U Epithel Cells (Auto) (0-5) /lpf Urine Bacteria (Auto) (Negative) Calcium Oxalate Crystal (None Prsent) Granular Casts (0) /lpf Urine Yeast Stool Comments COVID-19 Eval Order SARS-CoV-2 (PCR) (Negative) Blood Type Blood Type Recheck Antibody Screen Crossmatch Medications Administered Current Inpatient Medications Acetaminophen (Acetaminophen 325 Mg Tab) 650 mg PO Q4H PRN PRN Reason: Moderate Pain Stop: 12/28/20 14:21 Acetaminophen (Acetaminophen 500 Mg Tab) 500 mg PO QID [facility] Stop: 12/28/20 16:59 Last Admin: 11/29/20 15:49 Dose: 500 mg Documented by: Amiodarone HCl (Amiodarone 200 Mg Tab) 200 mg PO QAM [facility] Stop: 12/29/20 08:59 Last Admin: 11/29/20 15:47 Dose: Not Given Documented by: Atorvastatin Calcium (Atorvastatin 40 Mg Tab) 80 mg PO QAM [facility] Stop: 12/29/20 08:59 Last Admin: 11/29/20 15:16 Dose: Not Given Documented by: Chlorhexidine Gluconate (Chlorhexidine Gluconate 0.12% 480 Ml) 15 ml MT TID@0901,1301,1701 [facility] Stop: 12/28/20 14:30 Last Admin: 11/29/20 15:49 Dose: 15 ml Documented by: Finasteride (Finasteride 5 Mg Tab) 5 mg PO QAM [facility] Stop: 12/29/20 08:59 Last Admin: 11/29/20 15:16 Dose: Not Given Documented by: Fluoxetine HCl (Fluoxetine Hcl 20 Mg Cap) 20 mg PO QAM [facility] Stop: 12/29/20 08:59 Last Admin: 11/29/20 15:16 Dose: Not Given Documented by: Gabapentin (Gabapentin 100 Mg Cap) 100 mg PO TID [facility] Stop: 12/28/20 14:34 Last Admin: 11/29/20 15:47 Dose: Not Given Documented by: Pantoprazole Sodium 40 mg/ (Syringe) 10 mls @ 5 mls/min IV BID [facility] Stop: 12/28/20 11:44 Last Admin: 11/29/20 08:17 Dose: 5 mls/min Documented by: Sodium Chloride (Nss 1000ml) 1,000 mls @ 125 mls/hr IV .Q8H [facility] Stop: 12/28/20 18:44 Last Admin: 11/29/20 12:52 Dose: 125 mls/hr Documented by: Ceftriaxone Sodium 1,000 mg/ (Dextrose) 50 mls @ 100 mls/hr IV Q24H [facility]; Protocol Stop: 12/09/20 09:59 Last Infusion: 11/29/20 09:45 Dose: Infused Documented by: Sodium Chloride (Nss) 250 mls @ 15 mls/hr IV .[id number] PRN PRN Reason: For Transfusion Stop: 11/30/20 03:12 Lisinopril (Lisinopril 5 Mg Tab) 5 mg PO QAM [facility] Stop: 12/29/20 08:59 Last Admin: 11/29/20 15:16 Dose: Not Given Documented by: Metoprolol Tartrate (Metoprolol Tartrate 25 Mg Tab) 12.5 mg PO QAM [facility] Stop: 12/29/20 08:59 Last Admin: 11/29/20 15:16 Dose: Not Given Documented by: Multivitamins (Multivitamin Tab) [facility] [place]: 12/29/20 08:59 Last Admin: 11/29/20 15:16 Dose: Not Given Documented by: Ondansetron HCl (Ondansetron Inj 2 Mg/Ml 2 Ml Vial) 4 mg IV Q4H PRN PRN Reason: Nausea And Vomiting Stop: 12/28/20 14:21 Polyethylene Glycol (Polyethylene (Miralax) 17 Gm Pack) 119 gm PO 2100 ONE Stop: 11/29/20 21:01 Ropinirole HCl (Ropinirole Hcl 0.25 Mg Tablet) 0.5 mg PO QID@0901,1301,1701,2101 [facility] Stop: 12/28/20 14:36 Last Admin: 11/29/20 15:49 Dose: 0.5 mg Documented by: Tamsulosin HCl (Tamsulosin Hcl 0.4 Mg Cap) 0.4 mg PO QDD [facility] Stop: 12/28/20 16:29 Last Admin: 11/29/20 15:51 Dose: 0.4 mg Documented by: (1) BPH (benign prostatic hypertrophy) Lower urinary tract symptom presence: symptoms absent Qualified Code(s): N40.0 - Benign prostatic hyperplasia without lower urinary tract symptoms (2) CAD (coronary artery disease) Associated angina: without angina Coronary Disease-Associated Artery/Lesion type: [place] artery [place] vs. transplanted heart: [place] heart Qualified Code(s): I25.10 - Atherosclerotic heart disease of [place] coronary artery without angina pectoris (3) HTN (hypertension) Hypertension type: essential hypertension Qualified Code(s): I10 - Essential (primary) hypertension
[2020-11-29] MEDS: cefTRIAXone SODIUM 1,000 MG in DEXTROSE 5% 50 ML IV SCH (09:15)
--- NOTE | 2020-11-29 09:22 | Gastrointestinal Consultation ---
Date of Consultation November 29, 2020 Assessment & Plan (1) Rectal bleeding: (2) Anemia: Pt is a 70 yo seen for rectal bleeding and anemia in setting of Eliquis, ASA, Plavix uses. CT w moderate stool in rectum w thickening around that area ? stercoral colitis cannot be excluded. - Continue Protonix 40mg IV BID - Keep NPO - EGD eval today to r/o UGI source - Likely will give him bowel prep and plan for colonoscopy tomorrow - Hold Anticoags and Antiplatelets - Monitor blood ct and transfuse prn Supervising Physician Co-Signing Physician Notes I saw and evaluated the patient. He has had several days of alteration of bowel habits and was admitted for hematochezia. This morning he was found to have a significant drop in his hemoglobin and hematocrit from baseline yesterday afternoon. Imaging does seem to indicate that he may have changes in the left colon. The patient admits to his only surgical history being a inguinal hernia repair as a child. Patient denies having pain nausea or vomiting today. Of note the patient is on 2 antiplatelet agents in addition to an anticoagulant. This combination is likely contributing to the patient's present bleeding issue. Physical examination Frail appearing male, no obvious distress, mild pallor of skin noted Impression: Patient with hematochezia and a significant drop in hemoglobin and hematocrit overnight. We will proceed with urgent upper endoscopy today to evaluate for an upper GI source. If negative then a bowel preparation will be given to perform a colonoscopy at the next available tomorrow morning Plan Upper endoscopy today Please discontinue anticoagulation History of Present Illness Reason for Consultation: GI bleed Requesting Physician: Dr Alton Looney Attending Physician: Dr. Jia Blackmon History of Present Illness Pt is a 70 y/o male, who presented with rectal bleeding w clots x 3 days. He has hx of Afib, CAD s/p drug eluting stent placement, PE, Afib on Plavix, Eliquis, ASA. He is unsure when the last doses of these meds are but they are currently on hold. He denies any CP, SOB, light headedness, abd pain, n/v. Labs on admission showed Hgb of 11. INR 1. Overnight he continues to have rectal bleeding w clots. Hgb down to 8 this AM. He received 2U PRBC. CT abd/pelvis w moderate amt of stool in rectum, and rectal wall thickening , stercoral colitis unable to be excluded. On exam rectal vault wo stool but has bright red blood and clots. Allergies Allergy/AdvReac Type Severity Reaction Status Date / Time No Known Allergies Allergy Verified 11/28/20 08:50 Home Medications Medication Instructions Recorded Confirmed Type multivitamin (Daily Multi-Vitamin) 1 tab PO QAM 11/03/18 11/28/20 History acetaminophen 325 mg tablet 325 mg PO Q4H PRN 09/15/20 11/28/20 History (Tylenol) acetaminophen 500 mg tablet 500 mg PO QID 09/15/20 11/28/20 History (Acetaminophen Extra Strength) amiodarone 200 mg tablet (Pacerone) 200 mg PO QAM 09/15/20 11/28/20 History apixaban 5 mg tablet (Eliquis) 5 mg PO BID 09/15/20 11/28/20 History aspirin 81 mg tablet,delayed 81 mg PO QAM 09/15/20 11/28/20 History release (Aspirin Low Dose) atorvastatin 80 mg tablet (Lipitor) 80 mg PO QAM 09/15/20 11/28/20 History chlorhexidine gluconate 0.12 % 1 applic PO TID 09/15/20 11/28/20 History mouthwash (Peridex) cholecalciferol (vitamin D3) 25 25 mcg PO QAM 09/15/20 11/28/20 History mcg (1,000 unit) capsule (Vitamin D3) clopidogrel 75 mg tablet (Plavix) 75 mg PO QAM 09/15/20 11/28/20 History docusate sodium 100 mg capsule 100 mg PO BID 09/15/20 11/28/20 History (Colace) finasteride 5 mg tablet (Proscar) 5 mg PO QAM 09/15/20 11/28/20 History fluoxetine 20 mg capsule (Prozac) 20 mg PO QAM 09/15/20 11/28/20 History gabapentin 100 mg capsule 100 mg PO TID 09/15/20 11/28/20 History (Neurontin) metoprolol tartrate 25 mg tablet 12.5 mg PO QAM 09/15/20 11/28/20 History polyethylene glycol 3350 17 17 g PO TUTHSA 09/15/20 11/28/20 History gram/dose oral powder (Miralax) ropinirole 0.5 mg tablet 0.5 mg PO QID 09/15/20 11/28/20 History tamsulosin 0.4 mg capsule (Flomax) 0.4 mg PO QDD 09/15/20 11/28/20 History calcium carbonate 200 mg calcium 500 mg PO BID 11/28/20 11/28/20 History (500 mg) chewable tablet (Calcium Antacid) lisinopril 5 mg tablet (Zestril) 5 mg PO QAM 11/28/20 11/28/20 History Patient History Medical History (Updated 11/29/20 @ 10:00 by James Em MD) Acute CHF Anemia Atrial fibrillation Benign prostatic hyperplasia with urinary obstruction Bladder calculi BPH (benign prostatic hypertrophy) CAD (coronary artery disease) Chronic anticoagulation COPD (chronic obstructive pulmonary disease) GIB (gastrointestinal bleeding) Hematuria History of CVA (cerebrovascular accident) HTN (hypertension) Hypercholesterolemia Rectal bleeding ST elevation myocardial infarction (STEMI) Tobacco use UTI (urinary tract infection) Surgical History (Updated 11/29/20 @ 09:53 by James Em MD) History of hernia repair Presence of stent in coronary artery S/P drug eluting coronary stent placement S/P PTCA (percutaneous transluminal coronary angioplasty) Family History Denies family history of Ovarian cancer Prostate cancer Myocardial infarction Breast cancer Colorectal cancer Social History Smoking Status: Former smoker Tobacco Type: Cigarettes Hx Alcohol Use: No Hx Substance Use: No Preferred Language: Arabic Communication Ability: Impaired 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 Finger Buffs Required: No Beliefs That Will Affect Care: None marital status: Current Living Situation: Residential Current Living Situation Comment: [facility] (for rehab per pt) current occupational status: employed and retired current occupation: [employer] Other Information That Helps Us Care for You: No Feels Safe at Home: Yes Safety Concerns: Feels Safe At This Time Dental Care, Regularly: No Physical Activity Frequency: Does not Exercise Assistive Devices: None Review of Systems Review of Systems: All systems reviewed & are unremarkable except as noted in HPI & below Physical Exam Constitutional: WD/WN, vitals as above well groomed, cooperative and comfortable Eyes: PERRL, conjunctivae normal, anicteric sclerae ENMT: external ear and nose normal, oropharynx normal Respiratory: normal respiratory effort, lungs clear to auscultation Cardiovascular: RRR, no murmur, no edema Gastrointestinal (Abdomen): normal bowel sounds, soft, nontender, no hepatosplenomegaly Rectal - bright red blood w dark red clots Skin: no rashes, warm and dry no jaundice Neurologic: Contracture of RUE Psychiatric: A+Ox3, euthymic affect Lymphatic: no lymphedema Results & Data ([facility]) Vital Signs (Past 12 Hours) Vital Signs Temp Pulse Pulse Resp BP BP Pulse Ox 11/29/20 06:47 36.3 C L 85 18 120/74 99 11/29/20 05:45 36.9 C 77 18 118/74 98 11/29/20 04:46 36.9 C 75 18 116/83 95 11/29/20 04:44 36.9 C 74 15 98/58 L 93 11/29/20 04:27 36.7 C 74 15 92/57 L 94 11/29/20 04:16 36.7 C 74 18 95/59 L 93 11/29/20 04:01 36.8 C 84 16 108/66 91 11/29/20 03:45 36.6 C 82 17 112/61 91 11/29/20 03:42 36.6 C 76 17 112/61 91 11/29/20 02:29 36.7 C 82 20 106/68 97 11/29/20 01:59 37.0 C 96 H 16 111/76 96 11/29/20 01:44 37.2 C 77 16 98/61 L 96 11/29/20 01:26 36.8 C 80 14 88/53 L 93 11/28/20 23:51 36.4 C L 83 18 92/59 L 94
--- NOTE | 2020-11-29 09:55 | Anesthesiology Consultation ---
Date of Service November 29, 2020 Assessment & Plan (1) Encounter for pre-operative examination: Chart Review Chart Review: Acceptable Risk for Surgery, Patient NOT seen in Pre Admission Testing and entry level initiated Consults Requested none ASA ASA3 Proposed Anesthesia Anesthesia Type: MAC Risk / Benefits Reviewed With: PT / POA / Parent / Guardian, Accepts Plan and Informed Consent Obtained History Surgery Operation Date: 11/29/20 16:55 Proposed Procedures p Esophagogastroduodenoscopy Dr Neymar Blackmon, Height/Weight Height: 6 ft 2 in Weight: 78.3 kg Allergies Allergy/AdvReac Type Severity Reaction Status Date / Time No Known Allergies Allergy Verified 11/28/20 08:50 Medications Home Medications Medication Instructions Recorded Confirmed Last Taken multivitamin (Daily Multi-Vitamin) 1 tab PO QAM 11/03/18 11/28/20 11/27/20 09:00 acetaminophen 325 mg tablet 325 mg PO Q4H PRN 09/15/20 11/28/20 09/15/20 (Tylenol) acetaminophen 500 mg tablet 500 mg PO QID 09/15/20 11/28/20 11/27/20 21:00 (Acetaminophen Extra Strength) amiodarone 200 mg tablet (Pacerone) 200 mg PO QAM 09/15/20 11/28/20 11/27/20 09:00 apixaban 5 mg tablet (Eliquis) 5 mg PO BID 09/15/20 11/28/20 11/27/20 21:00 aspirin 81 mg tablet,delayed 81 mg PO QAM 09/15/20 11/28/20 11/27/20 09:00 release (Aspirin Low Dose) atorvastatin 80 mg tablet (Lipitor) 80 mg PO QAM 09/15/20 11/28/20 11/27/20 09:00 chlorhexidine gluconate 0.12 % 1 applic PO TID 09/15/20 11/28/20 11/27/20 17:00 mouthwash (Peridex) cholecalciferol (vitamin D3) 25 25 mcg PO QAM 09/15/20 11/28/20 11/27/20 09:00 mcg (1,000 unit) capsule (Vitamin D3) clopidogrel 75 mg tablet (Plavix) 75 mg PO QAM 09/15/20 11/28/20 11/27/20 09:00 docusate sodium 100 mg capsule 100 mg PO BID 09/15/20 11/28/20 11/27/20 21:00 (Colace) finasteride 5 mg tablet (Proscar) 5 mg PO QAM 09/15/20 11/28/20 11/27/20 09:00 fluoxetine 20 mg capsule (Prozac) 20 mg PO QAM 09/15/20 11/28/20 11/27/20 09:00 gabapentin 100 mg capsule 100 mg PO TID 09/15/20 11/28/20 11/27/20 17:00 (Neurontin) metoprolol tartrate 25 mg tablet 12.5 mg PO QAM 09/15/20 11/28/20 11/27/20 09:00 polyethylene glycol 3350 17 17 g PO TUTHSA 09/15/20 11/28/20 11/25/20 12:00 gram/dose oral powder (Miralax) ropinirole 0.5 mg tablet 0.5 mg PO QID 09/15/20 11/28/20 11/27/20 21:00 tamsulosin 0.4 mg capsule (Flomax) 0.4 mg PO QDD 09/15/20 11/28/20 11/27/20 17:00 calcium carbonate 200 mg calcium 500 mg PO BID 11/28/20 11/28/20 11/27/20 21:00 (500 mg) chewable tablet (Calcium Antacid) lisinopril 5 mg tablet (Zestril) 5 mg PO QAM 11/28/20 11/28/20 11/27/20 09:00 Active Medications Generic Name Dose Route Start Last Admin Trade Name Miladis PRN Reason Stop Dose Admin Acetaminophen 500 mg 11/28/20 17:00 11/28/20 20:43 Acetaminophen 500 Mg Tab PO 12/28/20 16:59 500 mg QID EMORY Administration Chlorhexidine Gluconate 15 ml 11/28/20 14:31 11/28/20 17:35 Chlorhexidine Gluconate 0.12% 480 Ml MT 12/28/20 14:30 15 ml TID@0901,1301,1701 EMORY Administration Gabapentin 100 mg 11/28/20 14:35 11/28/20 20:43 Gabapentin 100 Mg Cap PO 12/28/20 14:34 100 mg TID EMORY Administration Pantoprazole Sodium 40 mg/ 10 mls @ 5 mls/min 11/28/20 11:45 11/29/20 08:17 Syringe IV 12/28/20 11:44 5 mls/min BID EMORY Administration Sodium Chloride 1,000 mls @ 125 mls/hr 11/28/20 18:45 11/29/20 05:45 Nss 1000ml IV 12/28/20 18:44 125 mls/hr .Q8H EMORY Infusion Ropinirole HCl 0.5 mg 11/28/20 14:37 11/28/20 20:42 Ropinirole Hcl 0.25 Mg Tablet PO 12/28/20 14:36 0.5 mg QID@0901,1301,1701,2101 EMORY Administration Tamsulosin HCl 0.4 mg 11/28/20 16:30 11/28/20 15:44 Tamsulosin Hcl 0.4 Mg Cap PO 12/28/20 16:29 0.4 mg QDD EMORY Administration Past Medical History Medical History (Updated 11/29/20 @ 10:00 by James Em MD) Acute CHF Anemia Atrial fibrillation Benign prostatic hyperplasia with urinary obstruction Bladder calculi BPH (benign prostatic hypertrophy) CAD (coronary artery disease) Chronic anticoagulation COPD (chronic obstructive pulmonary disease) GIB (gastrointestinal bleeding) Hematuria History of CVA (cerebrovascular accident) HTN (hypertension) Hypercholesterolemia Rectal bleeding ST elevation myocardial infarction (STEMI) Tobacco use UTI (urinary tract infection) Past Family History Family History Denies family history of Ovarian cancer Prostate cancer Myocardial infarction Breast cancer Colorectal cancer Past Surgical History Surgical History (Updated 11/29/20 @ 09:53 by James Em MD) History of hernia repair Presence of stent in coronary artery S/P drug eluting coronary stent placement S/P PTCA (percutaneous transluminal coronary angioplasty) Social History Smoking Status: Former smoker tobacco type: cigars Hx Alcohol Use: No Alcohol type: beer, wine and hard liquor alcohol intake frequency: a few times a week Hx Substance Use: No Physical Exam Vital Signs Last Vital Signs Temp 36.3 C L 11/29/20 06:47 Pulse 85 11/29/20 06:47 Resp 18 11/29/20 06:47 BP 120/74 11/29/20 06:47 Pulse Ox 99 11/29/20 06:47 Testing Laboratory Results 11/29/20 08:18 11/29/20 08:18 PT 10.6 Seconds (9.0-12.0) 11/28/20 09:22 INR 1.0 (0.9-1.1) 11/28/20 09:22 APTT 24.2 Seconds (21.0-31.0) 11/28/20 09:22 Urine Color Yellow 11/29/20 06:35 Urine Appearance Cloudy (Clear) A 11/29/20 06:35 Urine pH 5.0 (4.5-7.5) 11/29/20 06:35 Ur Specific [place] > 1.045 (1.000-1.030) H 11/29/20 06:35 Urine Protein 1+ (Negative) H 11/29/20 06:35 Urine Glucose (UA) Negative (Negative) 11/29/20 06:35 Urine Ketones Trace (Negative) H 11/29/20 06:35 Urine Nitrite Negative (Negative) 11/29/20 06:35 Ur Leukocyte Esterase 1+ (Negative) H 11/29/20 06:35 Urine WBC (Auto) >30 /hpf (0-5) H 11/29/20 06:35 Urine RBC (Auto) 0-4 /hpf (0-4) 11/29/20 06:35 U Hyaline Cast (Auto) 10-30 /lpf (0-5) H 11/29/20 06:35 U Epithel Cells (Auto) 20-30 /lpf (0-5) H 11/29/20 06:35 Urine Bacteria (Auto) 2+ (Negative) H 11/29/20 06:35 Blood Type O Positive 11/28/20 09:22 Antibody Screen NEGATIVE 11/28/20 09:22 11/28/20 12:04 WBC Smear - Final Stool Electrocardiogram Date: 11/28/20 DICTATED BY: Adarsh Connolly MD Test Reason : Blood Pressure : / mmHG Vent. Rate : 075 BPM Atrial Rate : 075 BPM P-R Int : 172 ms QRS Dur : 096 ms QT Int : 414 ms P-R-T Axes : 097 -04 067 degrees QTc Int : 462 ms Normal sinus rhythm Nonspecific ST and T wave abnormality Abnormal ECG When compared with ECG of 15-SEP-2020 11:14, No significant change was found Confirmed by Adarsh Connolly ([id number]) on 11/28/2020 3:46:57 PM Chest X-Ray Date: 12/03/19 XR chest 1V portable CLINICAL HISTORY: hypoxia, ?worsening pulm edema COMPARISON STUDY: Chest radiograph December 03, 2019 at 12:45 AM. FINDINGS: Underlying emphysema is present. There is no pneumothorax or pleural effusion. There is borderline cardiomegaly. Interstitial thickening is similar to prior exam. No consolidation is identified. IMPRESSION: 1. No significant change in interstitial thickening consistent with pulmonary edema. 2. Emphysema. Echocardiogram Date: 12/06/19 EF: 45% LV Function: dysfunctional Cardiac Catheterization Date: 12/03/19 Lesion Segment Name: Proximal LAD Culprit Artery: Yes Stenosis Prior to Rx (%): 100 Chronic Total Occlusion: No IVUS: No FFR: No Pre-Procedure SADA Flow: 0 Previously Treated Lesion: Timeframe: greater than 2 years Treated with Stent: Yes In-Stent Thrombosis: Yes Stent Type: Type Unknown Yes Lesion Complexity: Non-High/Non-C Thrombus Present: Yes Bifurcation Lesion: No Guidewire Across Lesion: Stenosis Post-Procedure (%): 0 Post-Procedure SADA Flow: 3 Devices(s) Deployed: Yes Yes
--- NOTE | 2020-11-29 11:03 | GI REPORT ---
Patient Name: Flo Sweeney Procedure Date: 11/29/2020 10:23 AM Date of : 1950 Admit Type: Inpatient Age: 70 Gender: Male Attending MD: Jia Blackmon DO Procedure: Upper GI endoscopy Providers: Jia Blackmon DO Referring MD: Yanni Hood Indications: Hematochezia Medicines: Monitored Anesthesia Care Complications: No immediate complications. Estimated blood loss: Minimal. Estimated Blood Loss: Estimated blood loss was minimal. Procedure: Pre-Anesthesia Assessment: - Prior to the procedure, a History and Physical was performed, and patient medications, allergies and sensitivities were reviewed. The patient's tolerance of previous anesthesia was reviewed. - The risks and benefits of the procedure and the sedation options and risks were discussed with the patient. All questions were answered and informed consent was obtained. - Patient identification and proposed procedure were verified prior to the procedure by the physician, the nurse and the physically impaired teacher. The procedure was verified in the procedure room. - Pre-procedure physical examination revealed no contraindications to sedation. - ASA Grade Assessment: III - A patient with severe systemic disease. - After reviewing the risks and benefits, the patient was deemed in satisfactory condition to undergo the procedure. - The anesthesia plan was to use monitored anesthesia care (MAC). - Immediately prior to administration of medications, the patient was re-assessed for adequacy to receive sedatives. - The heart rate, respiratory rate, oxygen saturations, blood pressure, adequacy of pulmonary ventilation, and response to care were monitored throughout the procedure. - The physical status of the patient was re-assessed after the procedure. After obtaining informed consent, the endoscope was passed under direct vision. Throughout the procedure, the patient's blood pressure, pulse, and oxygen saturations were monitored continuously. The Endoscope was introduced through the mouth, and advanced to the fourth part of duodenum. The upper GI endoscopy was accomplished without difficulty. The patient tolerated the procedure well. Findings: The examined esophagus was normal. The Z-line was regular and was found 42 cm from the incisors. The entire examined stomach was normal. The examined duodenum was normal. Impression: - Normal esophagus. - Z-line regular, 42 cm from the incisors. - Normal stomach. - Normal examined duodenum. - No specimens collected. Recommendation: - Return patient to [facility] for ongoing care. - Perform a colonoscopy tomorrow. Jia Blackmon D.O. Jia Blackmon, 11/29/2020 11:03:11 AM This report has been signed electronically. Note Initiated On: 11/29/2020 10:23 AM Number of Addenda: 0 I attest to the content of the Intraoperative Record and orders documented therein, exceptions below {[id number]}
[2020-11-29] MEDS ORDERED: LIDOCAINE 2% 2 ML VIAL/AMP(20MG/ML) INFIL ONE (11:13)
[2020-11-29] MEDS ORDERED: PROPOFOL IV EMULSION 10 MG/ML 20 ML VIAL IV ONE (11:13)
[2020-11-29] MEDS ORDERED: PHENYLEPHRINE 100MCG/ML 5ML SYR ONE (11:13)
--- NOTE | 2020-11-29 11:26 | Anesthesiology Progress Note ---
Date of Service November 29, 2020 Anesthesia Post Procedure Vital Signs Vital Signs: Temp Pulse Pulse Pulse Resp BP BP 11/29/20 11:21 93 H 18 102/71 11/29/20 11:13 82 16 100/57 L 11/29/20 10:16 36.5 C 87 18 122/63 11/29/20 06:47 36.3 C L 85 18 120/74 11/29/20 05:45 36.9 C 77 18 118/74 11/29/20 04:46 36.9 C 75 18 116/83 11/29/20 04:44 36.9 C 74 15 98/58 L 11/29/20 04:27 36.7 C 74 15 92/57 L 11/29/20 04:16 36.7 C 74 18 95/59 L 11/29/20 04:01 36.8 C 84 16 108/66 11/29/20 03:45 36.6 C 82 17 112/61 11/29/20 03:42 36.6 C 76 17 112/61 11/29/20 02:29 36.7 C 82 20 106/68 11/29/20 01:59 37.0 C 96 H 16 111/76 11/29/20 01:44 37.2 C 77 16 98/61 L 11/29/20 01:26 36.8 C 80 14 88/53 L 11/28/20 23:51 36.4 C L 83 18 92/59 L 11/28/20 19:13 36.7 C 72 18 92/54 L 11/28/20 18:42 70/42 L 11/28/20 18:26 77 84/49 L 11/28/20 14:22 36.4 C L 101 H 76 16 108/60 11/28/20 14:00 36.4 C L 76 16 108/60 11/28/20 13:00 98 H 16 110/71 Pulse Ox 11/29/20 11:21 99 11/29/20 11:13 100 11/29/20 10:16 97 11/29/20 06:47 99 11/29/20 05:45 98 11/29/20 04:46 95 11/29/20 04:44 93 11/29/20 04:27 94 11/29/20 04:16 93 11/29/20 04:01 91 11/29/20 03:45 91 11/29/20 03:42 91 11/29/20 02:29 97 11/29/20 01:59 96 11/29/20 01:44 96 11/29/20 01:26 93 11/28/20 23:51 94 11/28/20 19:13 93 11/28/20 18:42 93 11/28/20 18:26 97 11/28/20 14:22 95 11/28/20 14:00 94 11/28/20 13:00 96 Pain Intensity Rectal: Pain Intensity: 3 Transfer of Care Handoff Completed per policy Notes Mental Status: alert / awake / arousable and participated in evaluation Patient Amnestic to Procedure: Yes Nausea / Vomiting: adequately controlled Pain: adequately controlled Airway Patency, RR, SpO2: stable & adequate BP & HR: stable & adequate Hydration State: stable & adequate Anesthetic Complications: no major complications apparent and Pt Satisfied with anesthetic care
[2020-11-29] MEDS: ACETAMINOPHEN 500 MG TAB PO SCH ×4 (15:15→22:04)
[2020-11-29] MEDS: MULTIVITAMIN TAB PO SCH (15:16)
[2020-11-29] MEDS: FINASTERIDE 5 MG TAB PO SCH (15:16)
[2020-11-29] MEDS: GABAPENTIN 100 MG CAP PO SCH ×3 (15:16→22:05)
[2020-11-29] MEDS: FLUoxetine HCL 20 MG CAP PO SCH (15:16)
[2020-11-29] MEDS: ATORVASTATIN 40 MG TAB PO SCH (15:16)
[2020-11-29] MEDS: METOPROLOL TARTRATE 25 MG TAB PO SCH (15:16)
[2020-11-29] MEDS: CHLORHEXIDINE GLUCONATE 0.12% 480 ML MT SCH ×3 (15:17→15:49)
[2020-11-29] MEDS: rOPINIRole HCL 0.25 MG TABLET PO SCH ×4 (15:17→22:05)
[2020-11-29] MEDS: AMIODARONE 200 MG TAB PO SCH (15:47)
[2020-11-29] MEDS: TAMSULOSIN HCL 0.4 MG CAP PO SCH (15:51)
[2020-11-29 15:56] LABS: Hematocrit (blood only) 20.7 % (42-52)
[2020-11-29] MEDS ORDERED: POLYETHYLENE (MIRALAX) 17 GM PACK PO ONE ×2 (17:00→21:00)
[2020-11-29] MEDS ORDERED: bisacodyL 5 MG TABEC PO ONE (17:09)
[2020-11-29 23:03] LABS: Hematocrit (blood only) 23.1 % (42-52); Hemoglobin 7.7 g/dL (14.0-18.0)
[2020-11-30] MEDS ORDERED: SODIUM CHLORIDE 0.9% 250 ML IV PRN ×2 (00:47→13:35)
[2020-11-30] MEDS ORDERED: FUROSEMIDE 20 MG in SYRINGE 0 ML IV ONE (02:30)
[2020-11-30 07:29] LABS: Hematocrit (blood only) 24.7 % (42-52); Hemoglobin 8.5 g/dL (14.0-18.0); Mean Corpuscular Hemoglobin 30.4 pg (25-34); Mean Corpuscular Hgb Conc 34.4 g/dL (32-36); Mean Corpuscular Volume 88.2 fL (80-100); Platelet Count 129 K/uL (130-400); RDW Coefficient of Variation 14.6 % (11.5-14.5); RDW Standard Deviation 46.4 fL (36.4-46.3); White Blood Count 10.03 K/uL (4.8-10.8)
[2020-11-30 08:09] LABS: Albumin Level 2.8 gm/dl (3.4-5.0); BUN Creatinine Ratio 26.1 (10-20); Calcium 8.1 mg/dl (8.5-10.1); Est GFR (African American) 75.7 ml/min; Est GFR (Non-African American) 65.3 ml/min; Potassium 3.8 mmol/L (3.5-5.1)
[2020-11-30 08:18] LABS: Albumin Globulin Ratio 1.6 (0.9-2); Bilirubin,Total 0.6 mg/dl (0.2-1); Globulin 1.7 gm/dl (2.5-4.0); Total Protein 4.5 gm/dl (6.4-8.2)
[2020-11-30] MEDS: PANTOprazole 40 MG in SYRINGE 0 ML IV SCH ×2 (09:02→21:24)
[2020-11-30] MEDS: CHLORHEXIDINE GLUCONATE 0.12% 480 ML MT SCH ×3 (09:04→17:56)
[2020-11-30] MEDS: FLUoxetine HCL 20 MG CAP PO SCH (09:22)
[2020-11-30] MEDS: FINASTERIDE 5 MG TAB PO SCH (09:22)
[2020-11-30] MEDS: GABAPENTIN 100 MG CAP PO SCH ×3 (09:22→21:24)
[2020-11-30] MEDS: rOPINIRole HCL 0.25 MG TABLET PO SCH ×4 (09:22→21:24)
[2020-11-30] MEDS: ATORVASTATIN 40 MG TAB PO SCH (09:22)
[2020-11-30] MEDS: MULTIVITAMIN TAB PO SCH (09:22)
[2020-11-30] MEDS: METOPROLOL TARTRATE 25 MG TAB PO SCH (09:22)
[2020-11-30] MEDS: AMIODARONE 200 MG TAB PO SCH (09:22)
[2020-11-30] MEDS: ACETAMINOPHEN 500 MG TAB PO SCH ×4 (09:22→21:24)
--- NOTE | 2020-11-30 09:41 | Gastroenterology Progress Note ---
Date of Service November 30, 2020 Assessment & Plan (1) Rectal bleeding: (2) Anemia: Plan: Pt is a 70 yo seen for rectal bleeding and anemia in setting of Eliquis, ASA, Plavix uses. CT w moderate stool in rectum w thickening around that area ? stercoral colitis cannot be excluded. EGD 11/29/20 unrevealing. He completed bowel prep for colonoscopy today - discontinue Protonix 40mg IV BID - Keep NPO - Plan for colonoscopy today - Hold Anticoags and Antiplatelets - Monitor blood ct and transfuse prn Admission and Anticipated Discharge Date Admission Date: November 29, 2020 Supervising Physician Co-Signing Physician Notes I saw and evaluated the patient. We are planning to do a colonoscopy today for further evaluation of hematochezia. Recommendations May discontinue IV Protonix Consent obtained from patient's spouse over the phone this afternoon Subjective Pt completed bowel prep. + rectal bleeding w/o stools or clots per RN Pt denies abd pain, n/v. Review of Systems Review of Systems: All systems reviewed & are unremarkable except as noted in HPI & below Physical Exam Constitutional: WD/WN, vitals as above well groomed, cooperative and comfortable Eyes: PERRL, conjunctivae normal, anicteric sclerae ENMT: external ear and nose normal, oropharynx normal Respiratory: Diminished overall lung sounds, no respiratory distress noted Cardiovascular: RRR, no murmur, no edema Gastrointestinal (Abdomen): normal bowel sounds, soft, nontender, no hepatosplenomegaly Musculoskeletal: Contracture on RUE Skin: no rashes, warm and dry no jaundice Psychiatric: A+Ox3, euthymic affect Lymphatic: no lymphedema Results & Data ([facility]) Vital Signs (Past 12 Hours) Vital Signs Temp Pulse Pulse Resp BP BP Pulse Ox 11/30/20 06:42 36.6 C 64 17 108/44 L 93 11/30/20 06:01 36.6 C 67 17 124/61 94 11/30/20 05:00 37.1 C 72 16 131/61 93 11/30/20 04:00 37 C 72 14 122/61 93 11/30/20 03:30 37.1 C 82 14 123/69 93 11/30/20 03:15 37.1 C 82 15 127/69 92 11/30/20 03:00 36.7 C 72 14 136/67 96 07/21/21 23:48 37.5 C 74 17 105/51 L 96
[2020-11-30] MEDS: cefTRIAXone SODIUM 1,000 MG in DEXTROSE 5% 50 ML IV SCH (09:42)
[2020-11-30] MEDS: SODIUM CHLORIDE 0.9% 1000ML 1,000 ML IV SCH ×3 (10:36→18:28)
--- NOTE | 2020-11-30 12:18 | Hospitalist Progress Note ---
Date of Service November 30, 2020 Assessment & Plan (1) GI bleed: Plan: - H&H 11.7/35.4 on admission - Hgb 8.0 overnight -2 units of packed red blood cells ordered overnight - GI consult for possible needs for colonoscopy- Dr. Blackmon - Patient underwent upper endoscopy yesterday, November 29, which was unremarkable - Plan for colonoscopy today, November 30 - 1 unit given again on 11/29 and again 1 unit overnight (now total s/p 4 units) - Hold antiplatelets (baby asa, plavix) also eliquis for hx of DVT in November 2019. Contacted pt's gold layer (Dr. Connolly about AC therapy - waiting to hear back) - Check ekg, pt is currently in regular rhythm, was tachycardic, now improved. - Check CT abd/pelvis with PO and IV contrast- pt denies abd pain/v/n. (2) CAD (coronary artery disease): Plan: - chronic, no acute issues (3) Atrial fibrillation: Plan: - Continue rate control with metoprolol tartrate, amiodarone. Holding anticoagulation with GIi bleed presently. - Will need to discuss with cardiology regarding anticoagulation prior to discharge, with GI regarding when safe to resume anticoagulation. (4) History of CVA (cerebrovascular accident): Plan: - Hx of such, chronic, left hemiplegia, dysarthria is mild, some memory impairment but answers all questions appropriately. - Turn and repo - PT/OT consults - Continue tylenol around the clock for joint pains (5) S/P drug eluting coronary stent placement: Plan: - Hx of such to LAD LAD 2003 and 11/2019 on plavix - as above - EKG as above - Consider cardiology consult (6) HTN (hypertension): Plan: - Cont lisinopril, metoprolol tartrate (7) Hypercholesterolemia: Plan: - Cont atorvastatin 80 mg daily (8) COPD (chronic obstructive pulmonary disease): Plan: - Stable, not on routine inhalers, does not wear O2 at baseline. Currently 93% on RA. (9) BPH (benign prostatic hypertrophy): Plan: - Cont flomax - noted that pt has been following with urology recently with Dr. Solano for hx of hematuria, monitor. Poss. UTI UA concerning for UTI, start empiric Rocephin, follow urine culture (10) DVT prophylaxis: Plan: - teds, scds, holding anticoagulation in the setting of GI bleed. CODE: Full code - discussed with the pt at bedside. Dispo: From home, likely to remain in the hospital x 1-2 days Admission and Anticipated Discharge Date Admission Date: November 29, 2020 Subjective Patient seen in follow-up of GI bleed Underwent upper endoscopy yesterday, plan for colonoscopy today Currently laying in bed, in no acute distress, breathing comfortably on room air, denies any abdominal pain Per nursing staff, patient had several bloody bowel movements Denies chest pain shortness of breath Review of Systems Review of Systems: All systems reviewed & are unremarkable except as noted in HPI & below Physical Exam Physical Exam: General: awake, alert, no apparent distress Head: Normocephalic, atraumatic ENT: PERRL, EOMI, no pharyngeal exudate, mucous membranes moist Chest: Clear to auscultation, on room air, no adventitious breath sounds Cardiac: RRR, no murmur, no JVD, normal peripheral pulses, good capillary refill Abdominal: NABS x 4 quadrants, soft, nondistended, nontender to palpation, no rebound or guarding Extremities: Normal inspection, + chronic venous stasis changes bilaterally, no peripheral edema or erythema, calves nontender to palpation, + contracture left hand and muscular atrophy left lower extremity Psych: Normal mood, flat affect Neuro: AAO x 3, left hemiplegia, speech is sometimes delayed, clear, no peripheral sensory deficits Results & Data Results & Data ([facility]) Vital Signs (Past 12 Hours) Vital Signs Temp Pulse Pulse Resp BP BP Pulse Ox 11/30/20 10:59 36.4 C L 74 18 116/45 L 90 11/30/20 08:00 65 11/30/20 06:42 36.6 C 64 17 108/44 L 93 11/30/20 06:01 36.6 C 67 17 124/61 94 11/30/20 05:00 37.1 C 72 16 131/61 93 11/30/20 04:00 37 C 72 14 122/61 93 11/30/20 03:30 37.1 C 82 14 123/69 93 11/30/20 03:15 37.1 C 82 15 127/69 92 11/30/20 03:00 36.7 C 72 14 136/67 96 Laboratory Results 11/30/20 11/30/20 11/29/20 Range/Units 07:11 07:11 22:29 WBC 10.03 (4.8-10.8) K/uL RBC 2.80 L (4.7-6.1) M/uL Hgb 8.5 L 7.7 L (14.0-18.0) g/dL Hct 24.7 L 23.1 L (42-52) % MCV 88.2 (80-100) fL MCH 30.4 (25-34) pg MCHC 34.4 (32-36) g/dL RDW Std Deviation 46.4 H (36.4-46.3) fL RDW Coeff of Markell 14.6 H (11.5-14.5) % Plt Count 129 L (130-400) K/uL MPV 10.0 (7.4-10.4) fL Sodium 141 (136-145) mmol/L Potassium 3.8 D (3.5-5.1) mmol/L Chloride 112 H (98-107) mmol/L Carbon Dioxide 25 (21-32) mmol/L Anion Gap 4.0 (3-11) BUN 29 H (7-18) mg/dl Creatinine 1.12 (0.6-1.4) mg/dl Est Cr Clr Drug Dosing 64.0 ml/min Est GFR ( Amer) 75.7 ml/min Est GFR (Non-Af Amer) 65.3 ml/min BUN/Creatinine Ratio 26.1 H (10-20) Glucose 100 H (70-99) mg/dl Calcium 8.1 L (8.5-10.1) mg/dl Total Bilirubin 0.6 (0.2-1) mg/dl AST 12 L (15-37) U/L ALT 18 (12-78) U/L Alkaline Phosphatase 46 (45-117) U/L Total Protein 4.5 L (6.4-8.2) gm/dl Albumin 2.8 L (3.4-5.0) gm/dl Globulin 1.7 L (2.5-4.0) gm/dl Albumin/Globulin Ratio 1.6 (0.9-2) Blood Type Antibody Screen Crossmatch 11/29/20 11/28/20 Range/Units 14:47 09:22 WBC (4.8-10.8) K/uL RBC (4.7-6.1) M/uL Hgb 7.0 L (14.0-18.0) g/dL Hct 20.7 L* (42-52) % MCV (80-100) fL MCH (25-34) pg MCHC (32-36) g/dL RDW Std Deviation (36.4-46.3) fL RDW Coeff of Markell (11.5-14.5) % Plt Count (130-400) K/uL MPV (7.4-10.4) fL Sodium (136-145) mmol/L Potassium (3.5-5.1) mmol/L Chloride (98-107) mmol/L Carbon Dioxide (21-32) mmol/L Anion Gap (3-11) BUN (7-18) mg/dl Creatinine (0.6-1.4) mg/dl Est Cr Clr Drug Dosing ml/min Est GFR ( Amer) ml/min Est GFR (Non-Af Amer) ml/min BUN/Creatinine Ratio (10-20) Glucose (70-99) mg/dl Calcium (8.5-10.1) mg/dl Total Bilirubin (0.2-1) mg/dl AST (15-37) U/L ALT (12-78) U/L Alkaline Phosphatase (45-117) U/L Total Protein (6.4-8.2) gm/dl Albumin (3.4-5.0) gm/dl Globulin (2.5-4.0) gm/dl Albumin/Globulin Ratio (0.9-2) Blood Type O Positive Antibody Screen NEGATIVE Crossmatch See Detail Medications Administered Current Inpatient Medications Acetaminophen (Acetaminophen 325 Mg Tab) 650 mg PO Q4H PRN PRN Reason: Moderate Pain Stop: 12/28/20 14:21 Acetaminophen (Acetaminophen 500 Mg Tab) 500 mg PO QID [facility] Stop: 12/28/20 16:59 Last Admin: 11/30/20 09:22 Dose: Not Given Documented by: Amiodarone HCl (Amiodarone 200 Mg Tab) [facility] Stop: 12/29/20 08:59 Last Admin: 11/30/20 09:22 Dose: Not Given Documented by: Atorvastatin Calcium (Atorvastatin 40 Mg Tab) 80 mg PO QAM [facility] Stop: 12/29/20 08:59 Last Admin: 11/30/20 09:22 Dose: Not Given Documented by: Chlorhexidine Gluconate (Chlorhexidine Gluconate 0.12% 480 Ml) 15 ml MT TID@0901,1301,1701 [facility] Stop: 12/28/20 14:30 Last Admin: 11/30/20 09:04 Dose: 15 ml Documented by: Finasteride (Finasteride 5 Mg Tab) 5 mg PO QAM [facility] Stop: 12/29/20 08:59 Last Admin: 11/30/20 09:22 Dose: Not Given Documented by: Fluoxetine HCl (Fluoxetine Hcl 20 Mg Cap) 20 mg PO QAM [facility] Stop: 12/29/20 08:59 Last Admin: 11/30/20 09:22 Dose: Not Given Documented by: Gabapentin (Gabapentin 100 Mg Cap) 100 mg PO TID [facility] Stop: 12/28/20 14:34 Last Admin: 11/30/20 09:22 Dose: Not Given Documented by: Pantoprazole Sodium 40 mg/ (Syringe) 10 mls @ 5 mls/min IV BID [facility] Stop: 12/28/20 11:44 Last Admin: 11/30/20 09:02 Dose: 5 mls/min Documented by: Sodium Chloride (Nss 1000ml) 1,000 mls @ 125 mls/hr IV .Q8H [facility] Stop: 12/28/20 18:44 Last Admin: 11/30/20 10:39 Dose: Not Given Documented by: Ceftriaxone Sodium 1,000 mg/ (Dextrose) 50 mls @ 100 mls/hr IV Q24H [facility]; Protocol Stop: 12/09/20 09:59 Last Infusion: 11/30/20 10:37 Dose: Infused Documented by: Lisinopril (Lisinopril 5 Mg Tab) 5 mg PO QAM [facility] Stop: 12/29/20 08:59 Last Admin: 11/29/20 15:16 Dose: Not Given Documented by: Metoprolol Tartrate (Metoprolol Tartrate 25 Mg Tab) 12.5 mg PO QAM [facility] Stop: 12/29/20 08:59 Last Admin: 11/30/20 09:22 Dose: Not Given Documented by: Multivitamins (Multivitamin Tab) 1 tab PO QAM [facility] Stop: 12/29/20 08:59 Last Admin: 11/30/20 09:22 Dose: Not Given Documented by: Ondansetron HCl (Ondansetron Inj 2 Mg/Ml 2 Ml Vial) 4 mg IV Q4H PRN PRN Reason: Nausea And Vomiting Stop: 12/28/20 14:21 Ropinirole HCl (Ropinirole Hcl 0.25 Mg Tablet) 0.5 mg PO QID@0901,1301,1701,2101 [facility] Stop: 12/28/20 14:36 Last Admin: 11/30/20 09:22 Dose: Not Given Documented by: Tamsulosin HCl (Tamsulosin Hcl 0.4 Mg Cap) 0.4 mg PO QDD [facility] Stop: 12/28/20 16:29 Last Admin: 11/29/20 15:51 Dose: 0.4 mg Documented by: (1) BPH (benign prostatic hypertrophy) Lower urinary tract symptom presence: symptoms absent Qualified Code(s): N40.0 - Benign prostatic hyperplasia without lower urinary tract symptoms (2) CAD (coronary artery disease) Associated angina: without angina Coronary Disease-Associated Artery/Lesion type: [place] artery [place] vs. transplanted heart: [place] heart Qualified Code(s): I25.10 - Atherosclerotic heart disease of [place] coronary artery without angina pectoris (3) HTN (hypertension) Hypertension type: essential hypertension Qualified Code(s): I10 - Essential (primary) hypertension
[2020-11-30 13:21] LABS: Hematocrit (blood only) 22.9 % (42-52); Hemoglobin 7.9 g/dL (14.0-18.0)
--- NOTE | 2020-11-30 15:32 | Anesthesiology Consultation ---
Date of Service November 30, 2020 Assessment & Plan Chart Review Chart Review: Acceptable Risk for Surgery Consults Requested none History Surgery Operation Date: 11/29/20 16:55 Proposed Procedures p Esophagogastroduodenoscopy Dr Neymar Blackmon, Operation Date: 11/30/20 16:45 Proposed Procedures p Colonoscopy Dr Neymar Blackmon, DO Height/Weight Height: 6 ft 2 in Weight: 75.9 kg Allergies Allergy/AdvReac Type Severity Reaction Status Date / Time No Known Allergies Allergy Verified 11/28/20 08:50 Medications Home Medications Medication Instructions Recorded Confirmed Last Taken multivitamin (Daily Multi-Vitamin) 1 tab PO QAM 11/03/18 11/28/20 11/27/20 09:00 acetaminophen 325 mg tablet 325 mg PO Q4H PRN 09/15/20 11/28/20 09/15/20 (Tylenol) acetaminophen 500 mg tablet 500 mg PO QID 09/15/20 11/28/20 11/27/20 21:00 (Acetaminophen Extra Strength) amiodarone 200 mg tablet (Pacerone) 200 mg PO QAM 09/15/20 11/28/20 11/27/20 09:00 apixaban 5 mg tablet (Eliquis) 5 mg PO BID 09/15/20 11/28/20 11/27/20 21:00 aspirin 81 mg tablet,delayed 81 mg PO QAM 09/15/20 11/28/20 11/27/20 09:00 release (Aspirin Low Dose) atorvastatin 80 mg tablet (Lipitor) 80 mg PO QAM 09/15/20 11/28/20 11/27/20 09:00 chlorhexidine gluconate 0.12 % 1 applic PO TID 09/15/20 11/28/20 11/27/20 17:00 mouthwash (Peridex) cholecalciferol (vitamin D3) 25 25 mcg PO QAM 09/15/20 11/28/20 11/27/20 09:00 mcg (1,000 unit) capsule (Vitamin D3) clopidogrel 75 mg tablet (Plavix) 75 mg PO QAM 09/15/20 11/28/20 11/27/20 09:00 docusate sodium 100 mg capsule 100 mg PO BID 09/15/20 11/28/20 11/27/20 21:00 (Colace) finasteride 5 mg tablet (Proscar) 5 mg PO QAM 09/15/20 11/28/20 11/27/20 09:00 fluoxetine 20 mg capsule (Prozac) 20 mg PO QAM 09/15/20 11/28/20 11/27/20 09:00 gabapentin 100 mg capsule 100 mg PO TID 09/15/20 11/28/20 11/27/20 17:00 (Neurontin) metoprolol tartrate 25 mg tablet 12.5 mg PO QAM 09/15/20 11/28/20 11/27/20 09:00 polyethylene glycol 3350 17 17 g PO TUTHSA 09/15/20 11/28/20 11/25/20 12:00 gram/dose oral powder (Miralax) ropinirole 0.5 mg tablet 0.5 mg PO QID 09/15/20 11/28/20 11/27/20 21:00 tamsulosin 0.4 mg capsule (Flomax) 0.4 mg PO QDD 09/15/20 11/28/20 11/27/20 17:00 calcium carbonate 200 mg calcium 500 mg PO BID 11/28/20 11/28/20 11/27/20 21:00 (500 mg) chewable tablet (Calcium Antacid) lisinopril 5 mg tablet (Zestril) 5 mg PO QAM 11/28/20 11/28/20 11/27/20 09:00 Active Medications Generic Name Dose Route Start Last Admin Trade Name Jonq PRN Reason Stop Dose Admin Acetaminophen 500 mg 11/28/20 17:00 11/30/20 13:02 Acetaminophen 500 Mg Tab PO 12/28/20 16:59 Not Given QID [facility] Amiodarone HCl 200 mg 11/29/20 09:00 11/30/20 09:22 Amiodarone 200 Mg Tab PO 12/29/20 08:59 Not Given QAM [facility] Atorvastatin Calcium 80 mg 11/29/20 09:00 11/30/20 09:22 Atorvastatin 40 Mg Tab PO 12/29/20 08:59 Not Given QAM [facility] Chlorhexidine Gluconate 15 ml 11/28/20 14:31 11/30/20 13:02 Chlorhexidine Gluconate 0.12% 480 Ml [facility] 12/28/20 14:30 Not Given TID@0901,1301,1701 [facility] Finasteride 5 mg 11/29/20 09:00 11/30/20 09:22 Finasteride 5 Mg Tab PO 12/29/20 08:59 Not Given QAM [facility] Fluoxetine HCl 20 mg 11/29/20 09:00 11/30/20 09:22 Fluoxetine Hcl 20 Mg Cap PO 12/29/20 08:59 Not Given QAM [facility] Gabapentin 100 mg 11/28/20 14:35 11/30/20 14:37 Gabapentin 100 Mg Cap PO 12/28/20 14:34 Not Given TID [facility] Pantoprazole Sodium 40 mg/ 10 mls @ 5 mls/min 11/28/20 11:45 11/30/20 09:02 Syringe IV 12/28/20 11:44 5 mls/min BID [facility] Administration Sodium Chloride 1,000 mls @ 125 mls/hr 11/28/20 18:45 11/30/20 10:39 Nss 1000ml IV 12/28/20 18:44 Not Given .Q8H [facility] Ceftriaxone Sodium 1,000 mg/ 50 mls @ 100 mls/hr 11/29/20 10:00 11/30/20 10:37 Dextrose IV 12/09/20 09:59 Infused Q24H [facility] Infusion Protocol Lisinopril 5 mg 11/29/20 09:00 11/29/20 15:16 Lisinopril 5 Mg Tab PO 12/29/20 08:59 Not Given QAM [facility] Metoprolol Tartrate 12.5 mg 11/29/20 09:00 11/30/20 09:22 Metoprolol Tartrate 25 Mg Tab PO 12/29/20 08:59 Not Given QAM [facility] Multivitamins 1 tab 11/29/20 09:00 11/30/20 09:22 Multivitamin Tab PO 12/29/20 08:59 Not Given QAM [facility] Ropinirole HCl 0.5 mg 11/28/20 14:37 11/30/20 13:02 Ropinirole Hcl 0.25 Mg Tablet PO 12/28/20 14:36 Not Given QID@0901,1301,1701,2101 [facility] Tamsulosin HCl 0.4 mg 11/28/20 16:30 11/29/20 15:51 Tamsulosin Hcl 0.4 Mg Cap PO 12/28/20 16:29 0.4 mg QDD [facility] Administration NPO Date Last Intake of Fluids: 11/29/20 Time Last Intake of Fluids: 00:00 Date Last Intake of Solids: 11/25/20 Time Last Intake of Solids: 00:00 Past Medical History Medical History (Updated 11/29/20 @ 10:00 by James Em MD) Acute CHF Anemia Atrial fibrillation Benign prostatic hyperplasia with urinary obstruction Bladder calculi BPH (benign prostatic hypertrophy) CAD (coronary artery disease) Chronic anticoagulation COPD (chronic obstructive pulmonary disease) GIB (gastrointestinal bleeding) Hematuria History of CVA (cerebrovascular accident) HTN (hypertension) Hypercholesterolemia Rectal bleeding ST elevation myocardial infarction (STEMI) Tobacco use UTI (urinary tract infection) Past Family History Family History Denies family history of Ovarian cancer Prostate cancer Myocardial infarction Breast cancer Colorectal cancer Past Surgical History Surgical History (Updated 11/29/20 @ 09:53 by James Em MD) History of hernia repair Presence of stent in coronary artery S/P drug eluting coronary stent placement S/P PTCA (percutaneous transluminal coronary angioplasty) Social History Smoking Status: Former smoker tobacco type: cigars Hx Alcohol Use: No Alcohol type: beer, wine and hard liquor alcohol intake frequency: a few times a week Hx Substance Use: No Physical Exam Vital Signs Last Vital Signs Temp 36.6 C 11/30/20 15:06 Pulse 63 11/30/20 15:06 Resp 18 11/30/20 15:06 BP 123/47 L 11/30/20 15:06 Pulse Ox 95 11/30/20 15:06 Testing Laboratory Results 11/30/20 13:10 11/30/20 07:11 PT 10.6 Seconds (9.0-12.0) 11/28/20 09:22 INR 1.0 (0.9-1.1) 11/28/20 09:22 APTT 24.2 Seconds (21.0-31.0) 11/28/20 09:22 Urine Color Yellow 11/29/20 06:35 Urine Appearance Cloudy (Clear) A 11/29/20 06:35 Urine pH 5.0 (4.5-7.5) 11/29/20 06:35 Ur Specific [place] > 1.045 (1.000-1.030) H 11/29/20 06:35 Urine Protein 1+ (Negative) H 11/29/20 06:35 Urine Glucose (UA) Negative (Negative) 11/29/20 06:35 Urine Ketones Trace (Negative) H 11/29/20 06:35 Urine Nitrite Negative (Negative) 11/29/20 06:35 Ur Leukocyte Esterase 1+ (Negative) H 11/29/20 06:35 Urine WBC (Auto) >30 /hpf (0-5) H 11/29/20 06:35 Urine RBC (Auto) 0-4 /hpf (0-4) 11/29/20 06:35 U Hyaline Cast (Auto) 10-30 /lpf (0-5) H 11/29/20 06:35 U Epithel Cells (Auto) 20-30 /lpf (0-5) H 11/29/20 06:35 Urine Bacteria (Auto) 2+ (Negative) H 11/29/20 06:35 Blood Type O Positive 11/28/20 09:22 Antibody Screen NEGATIVE 11/28/20 09:22 11/29/20 06:35 Urine Culture - Preliminary Urine,Straight Cath Pin-point growth present, reincubating. 11/28/20 12:04 WBC Smear - Final Stool Escherichia coli Shiga Toxins Test - Preliminary Stool Culture - Preliminary No Salmonella isolated to date, No Shigella isolated to date, No Campylobacter jejuni isolated to date.
--- NOTE | 2020-11-30 17:22 | Communication Note ---
Date of Service: November 30, 2020 The patient underwent colonoscopy this afternoon. Findings were notable for diverticulosis of the left colon, 2 colonic polyps which were removed in addition to a stercoral ulcer within the rectum. The stercoral ulcer was treated with endoscopic clip placement. Recommendations Advance diet as tolerated MiraLAX 17 g daily indefinitely Repeat colonoscopy in 6 to 12 months for surveillance of colonic polyps If rebleeding occurs would recommend referral to tertiary care center with colorectal surgery services available please call with any questions or concerns GI to sign off
[2020-11-30] MEDS ORDERED: PROPOFOL IV EMULSION 10 MG/ML 20 ML VIAL IV ONE (17:27)
--- NOTE | 2020-11-30 17:29 | GI REPORT ---
Patient Name: Flo Sweeney Procedure Date: 11/30/2020 4:40 PM Date of : 1950 Admit Type: Inpatient Age: 70 Gender: Male Attending MD: Jia Blackmon DO Procedure: Colonoscopy Providers: Jia Blackmon DO Referring MD: Alton Looney Md Indications: Hematochezia Medicines: Monitored Anesthesia Care Complications: No immediate complications. Estimated blood loss: Minimal. Estimated Blood Loss: Estimated blood loss was minimal. Procedure: Pre-Anesthesia Assessment: - Prior to the procedure, a History and Physical was performed, and patient medications, allergies and sensitivities were reviewed. The patient's tolerance of previous anesthesia was reviewed. - Patient identification and proposed procedure were verified prior to the procedure by the physician, the nurse and the director of alumni relations. The procedure was verified in the procedure room. - Pre-procedure physical examination revealed no contraindications to sedation. - ASA Grade Assessment: IV - A patient with severe systemic disease that is a constant threat to life. - After reviewing the risks and benefits, the patient was deemed in satisfactory condition to undergo the procedure. - The anesthesia plan was to use monitored anesthesia care (MAC). - Immediately prior to administration of medications, the patient was re-assessed for adequacy to receive sedatives. - The heart rate, respiratory rate, oxygen saturations, blood pressure, adequacy of pulmonary ventilation, and response to care were monitored throughout the procedure. - The physical status of the patient was re-assessed after the procedure. - The patient is unable to give consent secondary to the patient's altered mental status. The alternatives, risks and benefits of the procedure were discussed at length with the patient's spouse. The patient's proxy verbalized understanding of the risks as well as the alternatives and wished to proceed with the procedure. After I obtained informed consent, the scope was passed under direct vision. Throughout the procedure, the patient's blood pressure, pulse, and oxygen saturations were monitored continuously. The scope was introduced through the anus and advanced to the terminal ileum. The colonoscopy was technically difficult and complex due to a redundant colon and significant looping. Successful completion of the procedure was aided by applying abdominal pressure. The patient tolerated the procedure well. The quality of the bowel preparation was adequate to identify polyps 6 mm and larger in size. Findings: The digital rectal exam findings include non-thrombosed external hemorrhoids. Pertinent negatives include normal sphincter tone. A 10 mm polyp was found in the hepatic flexure. The polyp was semi-sessile. The polyp was removed with a hot snare. Resection and retrieval were complete. To prevent bleeding after the polypectomy, two hemostatic clips were successfully placed (MR conditional). There was no bleeding at the end of the procedure. A 14 mm polyp was found in the sigmoid colon. The polyp was pedunculated. Area was successfully injected with 2 mL of a 1:10,000 solution of epinephrine for drug delivery. The polyp was removed with a hot snare. Resection and retrieval were complete. The pathology specimen was placed into Bottle B. To prevent bleeding after the polypectomy, two hemostatic clips were successfully placed (MR conditional). There was no bleeding at the end of the procedure. Internal hemorrhoids were found during retroflexion. The hemorrhoids were moderate. Multiple small-mouthed diverticula were found in the sigmoid colon. A single (solitary) six mm ulcer was found in the mid rectum. Oozing was present. For hemostasis, one hemostatic clip was successfully placed (MR conditional). There was no bleeding at the end of the procedure. Impression: - Non-thrombosed external hemorrhoids found on digital rectal exam. - One 10 mm polyp at the hepatic flexure, removed with a hot snare. Resected and retrieved. Clips (MR conditional) were placed. - One 14 mm polyp in the sigmoid colon, removed with a hot snare. Resected and retrieved. Injected. Clips (MR conditional) were placed. - Internal hemorrhoids. - Mild diverticulosis in the sigmoid colon. - A single (solitary) ulcer in the mid rectum. Clip (MR conditional) was placed. Recommendation: - Repeat colonoscopy in 6 months for surveillance. - Await pathology results. - Clear liquid diet today. - Miralax 1 capful (17 grams) in 8 ounces of water PO daily indefinitely. Jia Blackmon D.O. Jia Blackmon, 11/30/2020 5:29:01 PM This report has been signed electronically. Note Initiated On: 11/30/2020 4:40 PM Number of Addenda: 0 I attest to the content of the Intraoperative Record and orders documented therein, exceptions below {[id number]}
--- NOTE | 2020-11-30 17:43 | Anesthesiology Progress Note ---
Date of Service November 30, 2020 Anesthesia Post Procedure Vital Signs Vital Signs: Temp Pulse Pulse Resp BP BP Pulse Ox 11/30/20 17:23 58 L 14 120/44 L 100 11/30/20 15:54 37.0 C 65 14 129/63 96 11/30/20 15:06 36.6 C 63 18 123/47 L 95 11/30/20 15:00 67 11/30/20 14:51 36.4 C L 63 18 138/61 93 11/30/20 14:35 36.4 C L 68 18 116/56 L 95 11/30/20 10:59 36.4 C L 74 18 116/45 L 90 11/30/20 08:00 65 11/30/20 06:42 36.6 C 64 17 108/44 L 93 11/30/20 06:01 36.6 C 67 17 124/61 94 11/30/20 05:00 37.1 C 72 16 131/61 93 11/30/20 04:00 37 C 72 14 122/61 93 11/30/20 03:30 37.1 C 82 14 123/69 93 11/30/20 03:15 37.1 C 82 15 127/69 92 11/30/20 03:00 36.7 C 72 14 136/67 96 11/29/20 23:48 37.5 C 74 17 105/51 L 96 11/29/20 21:21 36.6 C 80 18 143/68 H 96 11/29/20 20:53 36.8 C 82 20 155/65 H 96 11/29/20 19:53 37.2 C 88 20 123/66 96 11/29/20 18:53 37.2 C 89 18 118/66 96 11/29/20 18:23 36.9 C 81 16 105/46 L 94 11/29/20 18:08 36.8 C 85 120/65 11/29/20 17:50 36.8 C 91 H 15 120/65 100 Pain Intensity Rectal: Pain Intensity: 5 Transfer of Care Handoff Completed per policy Notes Mental Status: alert / awake / arousable and participated in evaluation Patient Amnestic to Procedure: Yes Nausea / Vomiting: adequately controlled Pain: adequately controlled Airway Patency, RR, SpO2: stable & adequate BP & HR: stable & adequate Hydration State: stable & adequate Anesthetic Complications: no major complications apparent
[2020-11-30] MEDS: TAMSULOSIN HCL 0.4 MG CAP PO SCH (17:55)
[2020-11-30 22:57] LABS: Hematocrit (blood only) 24.2 % (42-52); Hemoglobin 8.3 g/dL (14.0-18.0)
[2020-12-01] MEDS: SODIUM CHLORIDE 0.9% 1000ML 1,000 ML IV SCH ×3 (03:06→22:07)
[2020-12-01 06:28] LABS: Hematocrit (blood only) 23.2 % (42-52); Hemoglobin 7.9 g/dL (14.0-18.0); Mean Corpuscular Hemoglobin 30.5 pg (25-34); Mean Corpuscular Hgb Conc 34.1 g/dL (32-36); Mean Corpuscular Volume 89.6 fL (80-100); Mean Platelet Volume 10.1 fL (7.4-10.4); Platelet Count 101 K/uL (130-400); RDW Coefficient of Variation 14.7 % (11.5-14.5); RDW Standard Deviation 48.2 fL (36.4-46.3); Red Blood Count 2.59 M/uL (4.7-6.1); White Blood Count 6.18 K/uL (4.8-10.8)
[2020-12-01 06:55] LABS: Albumin Level 2.4 gm/dl (3.4-5.0); BUN Creatinine Ratio 21.3 (10-20); Calcium 7.9 mg/dl (8.5-10.1); Creatinine Clr Calc Pharmacy 88.8 ml/min; Est GFR (African American) 102.9 ml/min; Est GFR (Non-African American) 88.8 ml/min; Magnesium 1.8 mg/dl (1.8-2.4)
[2020-12-01 07:04] LABS: Albumin Globulin Ratio 1.2 (0.9-2); Bilirubin,Total 0.5 mg/dl (0.2-1); Globulin 1.9 gm/dl (2.5-4.0); Phosphorus 2.1 mg/dl (2.5-4.9); Total Protein 4.3 gm/dl (6.4-8.2)
[2020-12-01] MEDS ORDERED: POTASSIUM CHLORIDE CRTAB 20 MEQ TABCR PO STA (08:06)
--- NOTE | 2020-12-01 08:08 | Hospitalist Progress Note ---
Date of Service December 01, 2020 Assessment & Plan (1) GI bleed: Plan: - H&H 11.7/35.4 on admission - Hgb 8.0 overnight -2 units of packed red blood cells ordered overnight - 1 unit given again on 11/29 and again 1 unit overnight (now total s/p 4 units) - GI consulted- Dr. Blackmon - Patient underwent upper endoscopy yesterday, November 29, which was unremarkable - Now s/p colonoscopy , November 30, w/ Dr. Blackmon - Impression: - Non-thrombosed external hemorrhoids found on digital rectal exam. - One 10 mm polyp at the hepatic flexure, removed with a hot snare. Resected and retrieved. Clips (MR conditional) were placed. - One 14 mm polyp in the sigmoid colon, removed with a hot snare. Resected and retrieved. Injected. Clips (MR conditional) were placed. - Internal hemorrhoids. Mild diverticulosis in the sigmoid colon. - A single (solitary) ulcer in the mid rectum. Clip (MR conditional) was placed. Recommendation: - Repeat colonoscopy in 6 months for surveillance. - Await pathology results. - Miralax 1 capful (17 grams) in 8 ounces of water PO daily indefinitely. - Hold antiplatelets (baby asa, plavix) also eliquis for hx of DVT in November 2019. Contacted pt's department manager (Dr. Connolly about AC therapy - waiting to hear back) - Check ekg, pt is currently in regular rhythm, was tachycardic, now improved. - Check CT abd/pelvis with PO and IV contrast- pt denies abd pain/v/n. (2) CAD (coronary artery disease): Plan: - chronic, no acute issues (3) Atrial fibrillation: Plan: - Continue rate control with metoprolol tartrate, amiodarone. Holding anticoagulation with GI bleed presently. - Will need to discuss with cardiology regarding anticoagulation prior to discharge, with GI regarding when safe to resume anticoagulation. (4) History of CVA (cerebrovascular accident): Plan: - Hx of such, chronic, left hemiplegia, dysarthria is mild, some memory impairment but answers all questions appropriately. - Turn and repo - PT/OT consults - Continue tylenol around the clock for joint pains (5) S/P drug eluting coronary stent placement: Plan: - Hx of such to LAD LAD 2003 and 11/2019 on plavix - as above - EKG as above - Consider cardiology consult (6) HTN (hypertension): Plan: - Cont lisinopril, metoprolol tartrate (7) Hypercholesterolemia: Plan: - Cont atorvastatin 80 mg daily (8) COPD (chronic obstructive pulmonary disease): Plan: - Stable, not on routine inhalers, does not wear O2 at baseline. Currently 93% on RA. (9) BPH (benign prostatic hypertrophy): Plan: - Cont flomax - noted that pt has been following with urology recently with Dr. Solano for hx of hematuria, monitor. Poss. UTI UA concerning for UTI, started empiric Rocephin, follow urine culture (10) DVT prophylaxis: Plan: - teds, scds, holding anticoagulation in the setting of GI bleed. CODE: Full code - discussed with the pt at bedside. Dispo: From home, likely to remain in the hospital x 1-2 days Admission and Anticipated Discharge Date Admission Date: November 29, 2020 Subjective Patient seen in follow-up of GI bleed Underwent colonoscopy yesterday Currently laying in bed, in no acute distress, breathing comfortably on room air, denies any abdominal pain Per nursing staff, no more bowel movements, no more bleeding Denies chest pain shortness of breath Hgb stable Review of Systems Review of Systems: All systems reviewed, negative, unless as above Physical Exam Physical Exam: General: awake, alert, no apparent distress Head: Normocephalic, atraumatic ENT: PERRL, EOMI, no pharyngeal exudate, mucous membranes moist Chest: Clear to auscultation, on room air, no adventitious breath sounds Cardiac: RRR, no murmur, no JVD, normal peripheral pulses, good capillary refill Abdominal: NABS x 4 quadrants, soft, nondistended, nontender to palpation, no rebound or guarding Extremities: Normal inspection, + chronic venous stasis changes bilaterally, no peripheral edema or erythema, calves nontender to palpation, + contracture left hand and muscular atrophy left lower extremity Psych: Normal mood, flat affect Neuro: AAO x 3, left hemiplegia, speech is sometimes delayed, clear, no peripheral sensory deficits Results & Data Results & Data ([facility]) Vital Signs (Past 12 Hours) Vital Signs Temp Pulse Pulse Resp BP Pulse Ox 07/23/21 07:23 36.7 C 64 18 138/51 L 94 12/01/20 07:18 62 12/01/20 02:56 36.4 C L 67 16 154/50 H 91 11/30/20 22:30 37.1 C 64 17 166/61 H 94 Laboratory Results 12/01/20 12/01/20 11/30/20 Range/Units 06:00 06:00 22:29 WBC 6.18 (4.8-10.8) K/uL RBC 2.59 L (4.7-6.1) M/uL Hgb 7.9 L 8.3 L (14.0-18.0) g/dL Hct 23.2 L 24.2 L (42-52) % MCV 89.6 (80-100) fL MCH 30.5 (25-34) pg MCHC 34.1 (32-36) g/dL RDW Std Deviation 48.2 H (36.4-46.3) fL RDW Coeff of Markell 14.7 H (11.5-14.5) % Plt Count 101 L (130-400) K/uL MPV 10.1 (7.4-10.4) fL Sodium 143 (136-145) mmol/L Potassium 3.0 L D (3.5-5.1) mmol/L Chloride 116 H (98-107) mmol/L Carbon Dioxide 23 (21-32) mmol/L Anion Gap 4.0 (3-11) BUN 17 (7-18) mg/dl Creatinine 0.81 D (0.6-1.4) mg/dl Est Cr Clr Drug Dosing 88.8 ml/min Est GFR ( Amer) 102.9 ml/min Est GFR (Non-Af Amer) 88.8 ml/min BUN/Creatinine Ratio 21.3 H (10-20) Glucose 76 (70-99) mg/dl Calcium 7.9 L (8.5-10.1) mg/dl Phosphorus 2.1 L (2.5-4.9) mg/dl Magnesium 1.8 (1.8-2.4) mg/dl Total Bilirubin 0.5 (0.2-1) mg/dl AST 13 L (15-37) U/L ALT 17 (12-78) U/L Alkaline Phosphatase 54 (45-117) U/L Total Protein 4.3 L (6.4-8.2) gm/dl Albumin 2.4 L (3.4-5.0) gm/dl Globulin 1.9 L (2.5-4.0) gm/dl Albumin/Globulin Ratio 1.2 (0.9-2) Blood Type Antibody Screen Crossmatch 11/30/20 11/30/20 11/28/20 Range/Units 13:10 07:11 09:22 WBC (4.8-10.8) K/uL RBC (4.7-6.1) M/uL Hgb 7.9 L (14.0-18.0) g/dL Hct 22.9 L (42-52) % MCV (80-100) fL MCH (25-34) pg MCHC (32-36) g/dL RDW Std Deviation (36.4-46.3) fL RDW Coeff of Markell (11.5-14.5) % Plt Count (130-400) K/uL MPV (7.4-10.4) fL Sodium 141 (136-145) mmol/L Potassium 3.8 D (3.5-5.1) mmol/L Chloride 112 H (98-107) mmol/L Carbon Dioxide 25 (21-32) mmol/L Anion Gap 4.0 (3-11) BUN 29 H (7-18) mg/dl Creatinine 1.12 (0.6-1.4) mg/dl Est Cr Clr Drug Dosing 64.0 ml/min Est GFR ( Amer) 75.7 ml/min Est GFR (Non-Af Amer) 65.3 ml/min BUN/Creatinine Ratio 26.1 H (10-20) Glucose 100 H (70-99) mg/dl Calcium 8.1 L (8.5-10.1) mg/dl Phosphorus (2.5-4.9) mg/dl Magnesium (1.8-2.4) mg/dl Total Bilirubin 0.6 (0.2-1) mg/dl AST 12 L (15-37) U/L ALT 18 (12-78) U/L Alkaline Phosphatase 46 (45-117) U/L Total Protein 4.5 L (6.4-8.2) gm/dl Albumin 2.8 L (3.4-5.0) gm/dl Globulin 1.7 L (2.5-4.0) gm/dl Albumin/Globulin Ratio 1.6 (0.9-2) Blood Type O Positive Antibody Screen NEGATIVE Crossmatch See Detail Medications Administered Current Inpatient Medications Acetaminophen (Acetaminophen 325 Mg Tab) 650 mg PO Q4H PRN PRN Reason: Moderate Pain Stop: 12/28/20 14:21 Acetaminophen (Acetaminophen 500 Mg Tab) 500 mg PO QID [facility] Stop: 12/28/20 16:59 Last Admin: 12/01/20 22:07 Dose: 500 mg Documented by: Amiodarone HCl (Amiodarone 200 Mg Tab) 200 mg PO QAM [facility] Stop: 12/29/20 08:59 Last Admin: 12/01/20 09:00 Dose: 200 mg Documented by: Atorvastatin Calcium (Atorvastatin 40 Mg Tab) 80 mg PO QAM [facility] Stop: 12/29/20 08:59 Last Admin: 12/01/20 09:00 Dose: 80 mg Documented by: Chlorhexidine Gluconate (Chlorhexidine Gluconate 0.12% 480 Ml) 15 ml MT TID@0901,1301,1701 [facility] Stop: 12/28/20 14:30 Last Admin: 12/01/20 16:53 Dose: 15 ml Documented by: Finasteride (Finasteride 5 Mg Tab) 5 mg PO QAM [facility] Stop: 12/29/20 08:59 Last Admin: 12/01/20 08:59 Dose: 5 mg Documented by: Fluoxetine HCl (Fluoxetine Hcl 20 Mg Cap) 20 mg PO QAM [facility] Stop: 12/29/20 08:59 Last Admin: 12/01/20 09:00 Dose: 20 mg Documented by: Gabapentin (Gabapentin 100 Mg Cap) 100 mg PO TID [facility] Stop: 12/28/20 14:34 Last Admin: 12/01/20 22:07 Dose: 100 mg Documented by: Sodium Chloride (Nss 1000ml) 1,000 mls @ 125 mls/hr IV .Q8H [facility] Stop: 12/28/20 18:44 Last Admin: 12/02/20 05:20 Dose: 125 mls/hr Documented by: Ceftriaxone Sodium 1,000 mg/ (Dextrose) 50 mls @ 100 mls/hr IV Q24H [facility]; Protocol Stop: 12/09/20 09:59 Last Infusion: 12/01/20 11:54 Dose: Infused Documented by: Lisinopril (Lisinopril 5 Mg Tab) 5 mg PO QAM [facility] Stop: 12/29/20 08:59 Last Admin: 11/29/20 15:16 Dose: Not Given Documented by: Metoprolol Tartrate (Metoprolol Tartrate 25 Mg Tab) 12.5 mg PO QAM [facility] Stop: 12/29/20 08:59 Last Admin: 12/01/20 08:59 Dose: 12.5 mg Documented by: Multivitamins (Multivitamin Tab) 1 tab PO QAM [facility] Stop: 12/29/20 08:59 Last Admin: 12/01/20 09:00 Dose: 1 tab Documented by: Ondansetron HCl (Ondansetron Inj 2 Mg/Ml 2 Ml Vial) 4 mg IV Q4H PRN PRN Reason: Nausea And Vomiting Stop: 12/28/20 14:21 Pantoprazole Sodium (Pantoprazole 40 Mg Tab) 40 mg PO QAM [facility] Stop: 12/31/20 08:59 Last Admin: 12/01/20 10:43 Dose: 40 mg Documented by: Polyethylene Glycol (Polyethylene (Miralax) 17 Gm Pack) 17 gm PO DAILY [facility] Stop: 12/31/20 08:59 Last Admin: 12/01/20 09:02 Dose: 17 gm Documented by: Ropinirole HCl (Ropinirole Hcl 0.25 Mg Tablet) 0.5 mg PO QID@0901,1301,1701,2101 [facility] Stop: 12/28/20 14:36 Last Admin: 12/01/20 22:07 Dose: 0.5 mg Documented by: Tamsulosin HCl (Tamsulosin Hcl 0.4 Mg Cap) 0.4 mg PO QDD [facility] Stop: 12/28/20 16:29 Last Admin: 12/01/20 16:53 Dose: 0.4 mg Documented by: (1) BPH (benign prostatic hypertrophy) Lower urinary tract symptom presence: symptoms absent Qualified Code(s): N40.0 - Benign prostatic hyperplasia without lower urinary tract symptoms (2) CAD (coronary artery disease) Associated angina: without angina Coronary Disease-Associated Artery/Lesion type: [place] artery [place] vs. transplanted heart: false [place] heart Qualified Code(s): I25.10 - Atherosclerotic heart disease of [place] coronary artery without angina pectoris (3) HTN (hypertension) Hypertension type: essential hypertension Qualified Code(s): I10 - Essential (primary) hypertension
[2020-12-01] MEDS: GABAPENTIN 100 MG CAP PO SCH ×3 (08:59→22:07)
[2020-12-01] MEDS: METOPROLOL TARTRATE 25 MG TAB PO SCH (08:59)
[2020-12-01] MEDS: rOPINIRole HCL 0.25 MG TABLET PO SCH ×4 (08:59→22:07)
[2020-12-01] MEDS: FINASTERIDE 5 MG TAB PO SCH (08:59)
[2020-12-01] MEDS: MULTIVITAMIN TAB PO SCH (09:00)
[2020-12-01] MEDS: ACETAMINOPHEN 500 MG TAB PO SCH ×4 (09:00→22:07)
[2020-12-01] MEDS: FLUoxetine HCL 20 MG CAP PO SCH (09:00)
[2020-12-01] MEDS: AMIODARONE 200 MG TAB PO SCH (09:00)
[2020-12-01] MEDS: ATORVASTATIN 40 MG TAB PO SCH (09:00)
[2020-12-01] MEDS: POLYETHYLENE (MIRALAX) 17 GM PACK PO SCH (09:02)
[2020-12-01] MEDS: CHLORHEXIDINE GLUCONATE 0.12% 480 ML MT SCH ×3 (09:02→16:53)
--- NOTE | 2020-12-01 09:23 | Gastroenterology Progress Note ---
Date of Service December 01, 2020 Assessment & Plan (1) Rectal bleeding: (2) Anemia: Plan: Pt is a 70 yo seen for rectal bleeding and anemia in setting of Eliquis, ASA, Plavix uses. CT w moderate stool in rectum w thickening around that area ? stercoral colitis cannot be excluded. EGD 11/29/20 unrevealing. Colonoscopy 12/01/20 w int/ext hemorrhoids. Colon polyps x 2, sigmoid diverticulosis, ulcer in mid rectum, clipped. No more rectal bleeding noted overnight. Slight drop in Hgb this AM - PPI PO BID - CL diet - Monitor blood ct and transfuse prn - Replete K (3.0) - Please recall GI prn Admission and Anticipated Discharge Date Admission Date: November 29, 2020 Supervising Physician Co-Signing Physician Notes I saw and evaluated the patient. It appears that the patient has had no recurrent of his hematochezia over the last 12 hours. Should the patient have recurrent hematochezia from his stercoral ulcer he would then need to be seen by either general surgery here or perhaps a colorectal surgery at a tertiary center. Recommendations MiraLAX 17 g/day Daily fiber supplement Consider use of Colace 200 mg/day Please call with any questions or concerns, GI to sign off Subjective Pt c/o lower back pain, cramping. No more BMs since overnight. He denies abd pain, n/v. Slight drop in Hgb today 8.3 -> 7.9 Review of Systems Review of Systems: All systems reviewed & are unremarkable except as noted in HPI & below Physical Exam Constitutional: WD/WN, vitals as above well groomed, cooperative and comfortable Eyes: PERRL, conjunctivae normal, anicteric sclerae ENMT: external ear and nose normal, oropharynx normal Respiratory: normal respiratory effort, lungs clear to auscultation Cardiovascular: RRR, no murmur, no edema Gastrointestinal (Abdomen): normal bowel sounds, soft, nontender, no hepatosplenomegaly Skin: no rashes, warm and dry no jaundice Neurologic: Contracture on L side Psychiatric: A+Ox3, euthymic affect Lymphatic: no lymphedema Results & Data ([facility]) Vital Signs (Past 12 Hours) Vital Signs Temp Pulse Pulse Resp BP Pulse Ox 12/01/20 07:23 36.7 C 64 18 138/51 L 94 12/01/20 07:18 62 12/01/20 02:56 36.4 C L 67 16 154/50 H 91 11/30/20 22:30 37.1 C 64 17 166/61 H 94
[2020-12-01] MEDS: PANTOprazole 40 MG TAB PO SCH (10:43)
[2020-12-01] MEDS: POTASSIUM CHLORIDE / WTR 10 MEQ/100 ML PLCT IV SCH ×2 (10:43→11:53)
[2020-12-01] MEDS: cefTRIAXone SODIUM 1,000 MG in DEXTROSE 5% 50 ML IV SCH (10:57)
[2020-12-01] MEDS ORDERED: POTASSIUM CHLORIDE CRTAB 20 MEQ TABCR PO ONE (14:00)
[2020-12-01 14:42] LABS: Hematocrit (blood only) 23.7 % (42-52); Hemoglobin 8.1 g/dL (14.0-18.0)
[2020-12-01] MEDS: TAMSULOSIN HCL 0.4 MG CAP PO SCH (16:53)
[2020-12-01 21:01] LABS: Hematocrit (blood only) 23.9 % (42-52); Hemoglobin 8.1 g/dL (14.0-18.0)
[2020-12-02] MEDS: SODIUM CHLORIDE 0.9% 1000ML 1,000 ML IV SCH (05:20)
[2020-12-02 07:29] LABS: Hematocrit (blood only) 26.2 % (42-52); Hemoglobin 8.6 g/dL (14.0-18.0)
--- NOTE | 2020-12-02 08:19 | Hospitalist Progress Note ---
Date of Service December 02, 2020 Assessment & Plan (1) GI bleed: Plan: - H&H 11.7/35.4 on admission - Hgb 8.0 overnight -2 units of packed red blood cells ordered overnight - 1 unit given again on 11/29 and again 1 unit overnight (now total s/p 4 units) - GI consulted- Dr. Blackmon - Patient underwent upper endoscopy yesterday, November 29, which was unremarkable - Now s/p colonoscopy , November 30, w/ Dr. Blackmon - Impression: - Non-thrombosed external hemorrhoids found on digital rectal exam. - One 10 mm polyp at the hepatic flexure, removed with a hot snare. Resected and retrieved. Clips (MR conditional) were placed. - One 14 mm polyp in the sigmoid colon, removed with a hot snare. Resected and retrieved. Injected. Clips (MR conditional) were placed. - Internal hemorrhoids. Mild diverticulosis in the sigmoid colon. - A single (solitary) ulcer in the mid rectum. Clip (MR conditional) was placed. Recommendation: - Repeat colonoscopy in 6 months for surveillance. - Await pathology results. - Miralax 1 capful (17 grams) in 8 ounces of water PO daily indefinitely. - Hold antiplatelets (baby asa, plavix) also eliquis for hx of DVT in November 2019. Contacted pt's livestock broker (Dr. Connolly about AC therapy - waiting to hear back) - Check ekg, pt is currently in regular rhythm, was tachycardic, now improved. - Check CT abd/pelvis with PO and IV contrast- pt denies abd pain/v/n. 12/02 Patient had a large bowel movement, liquid, no more bleeding Current hemoglobin 8.6 Currently on clear liquid diet, will advance (2) CAD (coronary artery disease): Plan: - chronic, no acute issues (3) Atrial fibrillation: Plan: - Continue rate control with metoprolol tartrate, amiodarone. Holding anticoagulation with GI bleed presently. - Will need to discuss with cardiology regarding anticoagulation prior to dis charge, with GI regarding when safe to resume anticoagulation. (4) History of CVA (cerebrovascular accident): Plan: - Hx of such, chronic, left hemiplegia, dysarthria is mild, some memory impairment but answers all questions appropriately. - Turn and repo - PT/OT consults - Continue tylenol around the clock for joint pains (5) S/P drug eluting coronary stent placement: Plan: - Hx of such to LAD LAD 2003 and 11/2019 on plavix - as above - EKG as above - Consider cardiology consult (6) HTN (hypertension): Plan: - Cont lisinopril, metoprolol tartrate (7) Hypercholesterolemia: Plan: - Cont atorvastatin 80 mg daily (8) COPD (chronic obstructive pulmonary disease): Plan: - Stable, not on routine inhalers, does not wear O2 at baseline. Currently 93% on RA. (9) BPH (benign prostatic hypertrophy): Plan: - Cont flomax - noted that pt has been following with urology recently with Dr. Solano for hx of hematuria, monitor. Poss. UTI UA concerning for UTI, started empiric Rocephin urine culture shows mixed roro likely skin roor, will stop Abx (10) DVT prophylaxis: Plan: - teds, scds, holding anticoagulation in the setting of GI bleed. CODE: Full code - discussed with the pt at bedside. Dispo: From home, likely to remain in the hospital x 1-2 days Admission and Anticipated Discharge Date Admission Date: November 29, 2020 Subjective Patient seen in follow-up of GI bleed Underwent colonoscopy 2 days ago Currently laying in bed, in no acute distress, breathing comfortably on room air, denies any abdominal pain Per nursing staff, had a large bowel movements, no more bleeding Denies chest pain shortness of breath Hgb 8.6 stable will advance diet Review of Systems Constitutional: no fever and no chills Respiratory: no cough and no dyspnea Gastrointestinal: no abdominal pain and no blood in stools Physical Exam Physical Exam: General: awake, alert, no apparent distress Head: Normocephalic, atraumatic ENT: PERRL, EOMI, no pharyngeal exudate, mucous membranes moist Chest: Clear to auscultation, on room air, no adventitious breath sounds Cardiac: RRR, no murmur, no JVD, normal peripheral pulses, good capillary refill Abdominal: NABS x 4 quadrants, soft, nondistended, nontender to palpation, no rebound or guarding Extremities: Normal inspection, + chronic venous stasis changes bilaterally, no peripheral edema or erythema, calves nontender to palpation, + contracture left hand and muscular atrophy left lower extremity Psych: Normal mood, flat affect Neuro: AAO x 3, left hemiplegia, speech is sometimes delayed, clear, no peripheral sensory deficits Results & Data Results & Data ([facility]) Vital Signs (Past 12 Hours) Vital Signs Temp Pulse Pulse Resp BP Pulse Ox 12/02/20 07:48 75 12/02/20 07:28 36.7 C 75 18 145/51 H 97 12/02/20 03:03 36.4 C L 69 20 132/54 L 91 12/01/20 23:40 37.0 C 61 24 131/56 L 91 Laboratory Results 12/02/20 12/02/20 12/01/20 Range/Units 07:00 06:54 20:46 Hgb 8.6 L 8.1 L (14.0-18.0) g/dL Hct 26.2 L 23.9 L (42-52) % Sodium 143 (136-145) mmol/L Potassium 3.3 L (3.5-5.1) mmol/L Chloride 116 H (98-107) mmol/L Carbon Dioxide 22 (21-32) mmol/L Anion Gap 6.0 (3-11) BUN 8 D (7-18) mg/dl Creatinine 0.81 (0.6-1.4) mg/dl Est Cr Clr Drug Dosing 94.4 ml/min Est GFR ( Amer) 102.9 ml/min Est GFR (Non-Af Amer) 88.8 ml/min BUN/Creatinine Ratio 10.3 (10-20) Glucose 85 (70-99) mg/dl Calcium 8.1 L (8.5-10.1) mg/dl Phosphorus 2.1 L (2.5-4.9) mg/dl Magnesium 1.9 (1.8-2.4) mg/dl 12/01/20 Range/Units 14:26 Hgb 8.1 L (14.0-18.0) g/dL Hct 23.7 L (42-52) % Sodium (136-145) mmol/L Potassium (3.5-5.1) mmol/L Chloride (98-107) mmol/L Carbon Dioxide (21-32) mmol/L Anion Gap (3-11) BUN (7-18) mg/dl Creatinine (0.6-1.4) mg/dl Est Cr Clr Drug Dosing ml/min Est GFR ( Amer) ml/min Est GFR (Non-Af Amer) ml/min BUN/Creatinine Ratio (10-20) Glucose (70-99) mg/dl Calcium (8.5-10.1) mg/dl Phosphorus (2.5-4.9) mg/dl Magnesium (1.8-2.4) mg/dl Medications Administered Current Inpatient Medications Acetaminophen (Acetaminophen 325 Mg Tab) 650 mg PO Q4H PRN PRN Reason: Moderate Pain Stop: 12/28/20 14:21 Acetaminophen (Acetaminophen 500 Mg Tab) 500 mg PO QID [facility] Stop: 12/28/20 16:59 Last Admin: 12/02/20 08:53 Dose: 500 mg Documented by: Amiodarone HCl (Amiodarone 200 Mg Tab) 200 mg PO QAM [facility] Stop: 12/29/20 08:59 Last Admin: 12/02/20 08:56 Dose: 200 mg Documented by: Atorvastatin Calcium (Atorvastatin 40 Mg Tab) 80 mg PO QAM [facility] Stop: 12/29/20 08:59 Last Admin: 12/02/20 08:54 Dose: 80 mg Documented by: Chlorhexidine Gluconate (Chlorhexidine Gluconate 0.12% 480 Ml) 15 ml MT TID@0901,1301,1701 [facility] Stop: 12/28/20 14:30 Last Admin: 12/02/20 08:53 Dose: 15 ml Documented by: Finasteride (Finasteride 5 Mg Tab) 5 mg PO QAM [facility] Stop: 12/29/20 08:59 Last Admin: 12/02/20 08:55 Dose: 5 mg Documented by: Fluoxetine HCl (Fluoxetine Hcl 20 Mg Cap) 20 mg PO QAM [facility] Stop: 12/29/20 08:59 Last Admin: 12/02/20 08:57 Dose: 20 mg Documented by: Gabapentin (Gabapentin 100 Mg Cap) 100 mg PO TID [facility] Stop: 12/28/20 14:34 Last Admin: 12/02/20 08:53 Dose: 100 mg Documented by: Sodium Chloride (Nss 1000ml) 1,000 mls @ 125 mls/hr IV .Q8H [facility] Stop: 12/28/20 18:44 Last Infusion: 12/02/20 08:49 Dose: Infused Documented by: Ceftriaxone Sodium 1,000 mg/ (Dextrose) 50 mls @ 100 mls/hr IV Q24H [facility]; Protocol Stop: 12/09/20 09:59 Last Infusion: 12/02/20 09:40 Dose: Infused Documented by: Lisinopril (Lisinopril 2.5 Mg Tab) 2.5 mg PO QAM [facility] Stop: 01/01/21 08:59 Last Admin: 12/02/20 08:59 Dose: 2.5 mg Documented by: Metoprolol Tartrate (Metoprolol Tartrate 25 Mg Tab) 12.5 mg PO QAM [facility] Stop: 12/29/20 08:59 Last Admin: 12/02/20 08:52 Dose: 12.5 mg Documented by: Multivitamins (Multivitamin Tab) 1 tab PO [facility] Stop: 12/29/20 08:59 Last Admin: 12/02/20 08:54 Dose: 1 tab Documented by: Ondansetron HCl (Ondansetron Inj 2 Mg/Ml 2 Ml Vial) 4 mg IV Q4H PRN PRN Reason: Nausea And Vomiting Stop: 12/28/20 14:21 Pantoprazole Sodium (Pantoprazole 40 Mg Tab) 40 mg PO QAM [facility] Stop: 12/31/20 08:59 Last Admin: 12/02/20 08:55 Dose: 40 mg Documented by: Polyethylene Glycol (Polyethylene (Miralax) 17 Gm Pack) 17 gm PO DAILY [facility] Stop: 12/31/20 08:59 Last Admin: 12/02/20 08:55 Dose: 17 gm Documented by: Ropinirole HCl (Ropinirole Hcl 0.25 Mg Tablet) 0.5 mg PO QID@0901,1301,1701,2101 [facility] Stop: 12/28/20 14:36 Last Admin: 12/02/20 08:56 Dose: 0.5 mg Documented by: Tamsulosin HCl (Tamsulosin Hcl 0.4 Mg Cap) 0.4 mg PO QDD [facility] Stop: 12/28/20 16:29 Last Admin: 12/01/20 16:53 Dose: 0.4 mg Documented by: (1) BPH (benign prostatic hypertrophy) Lower urinary tract symptom presence: symptoms absent Qualified Code(s): N40.0 - Benign prostatic hyperplasia without lower urinary tract symptoms (2) CAD (coronary artery disease) Associated angina: without angina Coronary Disease-Associated Artery/Lesion type: [place] artery [place] vs. transplanted heart: [place] heart Qualified Code(s): I25.10 - Atherosclerotic heart disease of [place] coronary artery without angina pectoris (3) HTN (hypertension) Hypertension type: essential hypertension Qualified Code(s): I10 - Essential (primary) hypertension
[2020-12-02] MEDS: METOPROLOL TARTRATE 25 MG TAB PO SCH (08:52)
[2020-12-02] MEDS: GABAPENTIN 100 MG CAP PO SCH ×3 (08:53→20:22)
[2020-12-02] MEDS: CHLORHEXIDINE GLUCONATE 0.12% 480 ML MT SCH ×3 (08:53→16:49)
[2020-12-02] MEDS: ACETAMINOPHEN 500 MG TAB PO SCH ×4 (08:53→20:21)
[2020-12-02] MEDS: ATORVASTATIN 40 MG TAB PO SCH (08:54)
[2020-12-02] MEDS: MULTIVITAMIN TAB PO SCH (08:54)
[2020-12-02] MEDS: PANTOprazole 40 MG TAB PO SCH (08:55)
[2020-12-02] MEDS: FINASTERIDE 5 MG TAB PO SCH (08:55)
[2020-12-02] MEDS: POLYETHYLENE (MIRALAX) 17 GM PACK PO SCH (08:55)
[2020-12-02] MEDS: rOPINIRole HCL 0.25 MG TABLET PO SCH ×4 (08:56→20:21)
[2020-12-02] MEDS: AMIODARONE 200 MG TAB PO SCH (08:56)
[2020-12-02] MEDS: FLUoxetine HCL 20 MG CAP PO SCH (08:57)
[2020-12-02] MEDS: lisinopril 2.5 MG TAB PO SCH (08:59)
[2020-12-02] MEDS: cefTRIAXone SODIUM 1,000 MG in DEXTROSE 5% 50 ML IV SCH (09:02)
[2020-12-02 09:36] LABS: BUN Creatinine Ratio 10.3 (10-20); Calcium 8.1 mg/dl (8.5-10.1); Creatinine Clr Calc Pharmacy 94.4 ml/min; Est GFR (African American) 102.9 ml/min; Est GFR (Non-African American) 88.8 ml/min; Magnesium 1.9 mg/dl (1.8-2.4); Phosphorus 2.1 mg/dl (2.5-4.9); Potassium 3.3 mmol/L (3.5-5.1)
[2020-12-02] MEDS ORDERED: POTASSIUM CHLORIDE CRTAB 20 MEQ TABCR PO STA (10:13)
[2020-12-02] MEDS: POT PHOSPHATE MONOBASIC W/ SOD TAB PO SCH ×3 (12:07→20:21)
[2020-12-02] MEDS: TAMSULOSIN HCL 0.4 MG CAP PO SCH (16:50)
[2020-12-02 18:58] LABS: Hematocrit (blood only) 25.4 % (42-52); Hemoglobin 8.5 g/dL (14.0-18.0)
[2020-12-03 06:23] LABS: Hematocrit (blood only) 24.2 % (42-52); Hemoglobin 8.2 g/dL (14.0-18.0)
--- NOTE | 2020-12-03 06:49 | Hospitalist Progress Note ---
Date of Service December 03, 2020 Assessment & Plan (1) GI bleed: Plan: - H&H 11.7/35.4 on admission - Hgb 8.0 overnight -2 units of packed red blood cells ordered overnight - 1 unit given again on 11/29 and again 1 unit overnight (now total s/p 4 units) - GI consulted- Dr. Blackmon - Patient underwent upper endoscopy yesterday, November 29, which was unremarkable - Now s/p colonoscopy , November 30, w/ Dr. Blackmon - Impression: - Non-thrombosed external hemorrhoids found on digital rectal exam. - One 10 mm polyp at the hepatic flexure, removed with a hot snare. Resected and retrieved. Clips (MR conditional) were placed. - One 14 mm polyp in the sigmoid colon, removed with a hot snare. Resected and retrieved. Injected. Clips (MR conditional) were placed. - Internal hemorrhoids. Mild diverticulosis in the sigmoid colon. - A single (solitary) ulcer in the mid rectum. Clip (MR conditional) was placed. Recommendation: - Repeat colonoscopy in 6 months for surveillance. - Await pathology results. - Miralax 1 capful (17 grams) in 8 ounces of water PO daily indefinitely. - Hold antiplatelets (baby asa, plavix) also eliquis for hx of DVT in November 2019. Contacted pt's twist maker (Dr. Connolly about AC therapy - waiting to hear back) - Check ekg, pt is currently in regular rhythm, was tachycardic, now improved. - Check CT abd/pelvis with PO and IV contrast- pt denies abd pain/v/n. 12/02 Patient had a large bowel movement, liquid, no more bleeding Current hemoglobin 8.6 Currently on clear liquid diet, will advance 12/03 Patient had a large bowel movement, liquid, no blood Current hemoglobin 8.2 Advanced diet yesterday, patient is tolerating (2) CAD (coronary artery disease): Plan: - chronic, no acute issues (3) Atrial fibrillation: Plan: - Continue rate control with metoprolol tartrate, amiodarone. Holding anticoagulation with GI bleed presently. - Will need to discuss with cardiology regarding anticoagulation prior to discharge, with GI regarding when safe to resume anticoagulation. (4) History of CVA (cerebrovascular accident): Plan: - Hx of such, chronic, left hemiplegia, dysarthria is mild, some memory impairment but answers all questions appropriately. - Turn and repo - PT/OT consults - Continue tylenol around the clock for joint pains (5) S/P drug eluting coronary stent placement: Plan: - Hx of such to LAD LAD 2003 and 11/2019 on plavix - as above - EKG as above - Consider cardiology consult (6) HTN (hypertension): Plan: - Cont lisinopril, metoprolol tartrate (7) Hypercholesterolemia: Plan: - Cont atorvastatin 80 mg daily (8) COPD (chronic obstructive pulmonary disease): Plan: - Stable, not on routine inhalers, does not wear O2 at baseline. Currently 93% on RA. (9) BPH (benign prostatic hypertrophy): Plan: - Cont flomax - noted that pt has been following with urology recently with Dr. Solano for hx of hematuria, monitor. Poss. UTI UA concerning for UTI, started empiric Rocephin urine culture shows mixed roro likely skin roro, will stop Abx (10) DVT prophylaxis: Plan: - teds, scds, holding anticoagulation in the setting of GI bleed. CODE: Full code - discussed with the pt at bedside. Dispo: From home, likely to remain in the hospital x 1-2 days Admission and Anticipated Discharge Date Admission Date: November 29, 2020 Subjective Patient seen in follow-up of GI bleed Underwent colonoscopy 3 days ago Currently laying in bed, in no acute distress, breathing comfortably on room air, denies any abdominal pain Denies chest pain shortness of breath Hgb 8.2 slightly down but seems otherwise stable Advanced diet yesterday, patient tolerates well Had one large liquid bowel movement yesterday, no blood Review of Systems Review of Systems: All systems reviewed, negative, unless as above Constitutional: no fever and no chills Respiratory: no cough and no dyspnea Gastrointestinal: no abdominal pain and no blood in stools Physical Exam Physical Exam: General: awake, alert, no apparent distress Head: Normocephalic, atraumatic ENT: PERRL, EOMI, no pharyngeal exudate, mucous membranes moist Chest: Clear to auscultation, on room air, no adventitious breath sounds Cardiac: RRR, no murmur, no JVD, normal peripheral pulses, good capillary refill Abdominal: NABS x 4 quadrants, soft, nondistended, nontender to palpation, no rebound or guarding Extremities: Normal inspection, + chronic venous stasis changes bilaterally, no peripheral edema or erythema, calves nontender to palpation, + contracture left hand and muscular atrophy left lower extremity Psych: Normal mood, flat affect Neuro: AAO x 3, left hemiplegia, speech is sometimes delayed, clear, no peripheral sensory deficits Results & Data Results & Data ([facility]) Vital Signs (Past 12 Hours) Vital Signs Temp Pulse Pulse Resp BP Pulse Ox 12/03/20 03:46 36.5 C 68 16 132/64 92 12/02/20 22:53 36.9 C 66 24 137/57 L 91 12/02/20 19:21 36.7 C 67 20 130/57 L 93 Laboratory Results 12/03/20 12/03/20 12/02/20 Range/Units 06:09 06:09 18:48 Hgb 8.2 L 8.5 L (14.0-18.0) g/dL Hct 24.2 L 25.4 L (42-52) % Sodium 143 (136-145) mmol/L Potassium 3.5 (3.5-5.1) mmol/L Chloride 114 H (98-107) mmol/L Carbon Dioxide 25 (21-32) mmol/L Anion Gap 4.0 (3-11) BUN 15 D (7-18) mg/dl Creatinine 0.83 (0.6-1.4) mg/dl Est Cr Clr Drug Dosing 92.1 ml/min Est GFR ( Amer) 101.9 ml/min Est GFR (Non-Af Amer) 87.9 ml/min BUN/Creatinine Ratio 17.6 (10-20) Glucose 84 (70-99) mg/dl Calcium 8.1 L (8.5-10.1) mg/dl Phosphorus 3.1 D (2.5-4.9) mg/dl Medications Administered Current Inpatient Medications Acetaminophen (Acetaminophen 325 Mg Tab) 650 mg PO Q4H PRN PRN Reason: Moderate Pain Stop: 12/28/20 14:21 Acetaminophen (Acetaminophen 500 Mg Tab) 500 mg PO QID [facility] Stop: 12/28/20 16:59 Last Admin: 12/03/20 08:36 Dose: 500 mg Documented by: Amiodarone HCl (Amiodarone 200 Mg Tab) 200 mg PO QAM [facility] Stop: 12/29/20 08:59 Last Admin: 12/03/20 08:36 Dose: 200 mg Documented by: Atorvastatin Calcium (Atorvastatin 40 Mg Tab) [facility] [place] Stop: 12/29/20 08:59 Last Admin: 12/03/20 08:36 Dose: 80 mg Documented by: Chlorhexidine Gluconate (Chlorhexidine Gluconate 0.12% 480 Ml) 15 ml MT TID@0901,1301,1701 [facility] Stop: 12/28/20 14:30 Last Admin: 12/03/20 08:35 Dose: 15 ml Documented by: Finasteride (Finasteride 5 Mg Tab) 5 mg PO [facility] Stop: 12/29/20 08:59 Last Admin: 12/03/20 08:37 Dose: 5 mg Documented by: Fluoxetine HCl (Fluoxetine Hcl 20 Mg Cap) 20 mg PO [facility] Stop: 12/29/20 08:59 Last Admin: 12/03/20 08:37 Dose: 20 mg Documented by: Gabapentin (Gabapentin 100 Mg Cap) 100 mg PO TID [facility] Stop: 12/28/20 14:34 Last Admin: 12/03/20 08:35 Dose: 100 mg Documented by: Sodium Chloride (Nss 1000ml) 1,000 mls @ 125 mls/hr IV .Q8H [facility] Stop: 12/28/20 18:44 Last Infusion: 12/02/20 08:49 Dose: Infused Documented by: Lisinopril (Lisinopril 2.5 Mg Tab) 2.5 mg PO [facility] Stop: 01/01/21 08:59 Last Admin: 12/03/20 08:37 Dose: 2.5 mg Documented by: Metoprolol Tartrate (Metoprolol Tartrate 25 Mg Tab) 12.5 mg PO [facility] Stop: 12/29/20 08:59 Last Admin: 12/03/20 08:36 Dose: 12.5 mg Documented by: Multivitamins (Multivitamin Tab) 1 tab PO [facility] Stop: 12/29/20 08:59 Last Admin: 12/03/20 08:36 Dose: 1 tab Documented by: Ondansetron HCl (Ondansetron Inj 2 Mg/Ml 2 Ml Vial) 4 mg IV Q4H PRN PRN Reason: Nausea And Vomiting Stop: 12/28/20 14:21 Pantoprazole Sodium (Pantoprazole 40 Mg Tab) 40 mg PO QAM [facility] Stop: 12/31/20 08:59 Last Admin: 12/03/20 08:36 Dose: 40 mg Documented by: Polyethylene Glycol (Polyethylene (Miralax) 17 Gm Pack) 17 gm PO DAILY [facility] Stop: 12/31/20 08:59 Last Admin: 12/03/20 08:38 Dose: Not Given Documented by: Potassium Phosphate (Pot Phosphate Monobasic W/ Sod Tab) 1 tab PO QID [facility] Stop: 01/01/21 12:59 Last Admin: 12/03/20 08:36 Dose: 1 tab Documented by: Ropinirole HCl (Ropinirole Hcl 0.25 Mg Tablet) 0.5 mg PO QID@0901,1301,1701,2101 [facility] Stop: 12/28/20 14:36 Last Admin: 12/03/20 08:37 Dose: 0.5 mg Documented by: Tamsulosin HCl (Tamsulosin Hcl 0.4 Mg Cap) 0.4 mg PO QDD [facility] Stop: 12/28/20 16:29 Last Admin: 12/02/20 16:50 Dose: 0.4 mg Documented by: (1) BPH (benign prostatic hypertrophy) Lower urinary tract symptom presence: symptoms absent Qualified Code(s): N40.0 - Benign prostatic hyperplasia without lower urinary tract symptoms (2) CAD (coronary artery disease) Associated angina: without angina Coronary Disease-Associated Artery/Lesion type: [place] artery [place] vs. transplanted heart: [place] heart Qualified Code(s): I25.10 - Atherosclerotic heart disease of [place] coronary artery without angina pectoris (3) HTN (hypertension) Hypertension type: essential hypertension Qualified Code(s): I10 - Essential (primary) hypertension
[2020-12-03 06:50] LABS: BUN Creatinine Ratio 17.6 (10-20); Calcium 8.1 mg/dl (8.5-10.1); Creatinine Clr Calc Pharmacy 92.1 ml/min; Est GFR (African American) 101.9 ml/min; Est GFR (Non-African American) 87.9 ml/min; Potassium 3.5 mmol/L (3.5-5.1)
[2020-12-03 06:51] LABS: Phosphorus 3.1 mg/dl (2.5-4.9)
[2020-12-03] MEDS: CHLORHEXIDINE GLUCONATE 0.12% 480 ML MT SCH ×3 (08:35→16:57)
[2020-12-03] MEDS: GABAPENTIN 100 MG CAP PO SCH ×3 (08:35→21:09)
[2020-12-03] MEDS: PANTOprazole 40 MG TAB PO SCH (08:36)
[2020-12-03] MEDS: ACETAMINOPHEN 500 MG TAB PO SCH ×4 (08:36→21:09)
[2020-12-03] MEDS: ATORVASTATIN 40 MG TAB PO SCH (08:36)
[2020-12-03] MEDS: METOPROLOL TARTRATE 25 MG TAB PO SCH (08:36)
[2020-12-03] MEDS: AMIODARONE 200 MG TAB PO SCH (08:36)
[2020-12-03] MEDS: MULTIVITAMIN TAB PO SCH (08:36)
[2020-12-03] MEDS: POT PHOSPHATE MONOBASIC W/ SOD TAB PO SCH ×4 (08:36→21:09)
[2020-12-03] MEDS: FLUoxetine HCL 20 MG CAP PO SCH (08:37)
[2020-12-03] MEDS: FINASTERIDE 5 MG TAB PO SCH (08:37)
[2020-12-03] MEDS: rOPINIRole HCL 0.25 MG TABLET PO SCH ×4 (08:37→21:09)
[2020-12-03] MEDS: lisinopril 2.5 MG TAB PO SCH (08:37)
[2020-12-03] MEDS: POLYETHYLENE (MIRALAX) 17 GM PACK PO SCH (08:38)
[2020-12-03] MEDS ORDERED: POTASSIUM CHLORIDE PWD 20 MEQ PACK PO ONE (09:30)
--- NOTE | 2020-12-03 13:23 | Cardiology Consultation ---
Date of Consultation December 03, 2020 History of Present Illness Attending Physician: Alton Looney MD History of Present Illness This is a patient of Dr. Key. He was admitted with anemia. He underwent both upper and lower endoscopy. There is concern as an outpatient he was on dual antiplatelet therapy along with anticoagulation. He denies any chest pain just pressure chest heaviness. He notes some mild shortness of breath with activity. At least looking at him on not sure how active he really is. He denies any presyncope syncope falls. He denies any palpitations. He has had no documented atrial fibrillation in the hospital. He denies any orthostatic symptoms. He is unaware of having bleeding or dark stools or black stools before he came to the hospital. He has required multiple transfusions. He has no lower extremity edema he denies any orthopnea. The rest of a complete her systems otherwise negative Allergies Allergy/AdvReac Type Severity Reaction Status Date / Time No Known Allergies Allergy Verified 11/28/20 08:50 Home Medications Medication Instructions Recorded Confirmed Type multivitamin (Daily Multi-Vitamin) 1 tab PO QAM 11/03/18 11/28/20 History acetaminophen 325 mg tablet 325 mg PO Q4H PRN 09/15/20 11/28/20 History (Tylenol) acetaminophen 500 mg tablet 500 mg PO QID 09/15/20 11/28/20 History (Acetaminophen Extra Strength) amiodarone 200 mg tablet (Pacerone) 200 mg PO QAM 09/15/20 11/28/20 History apixaban 5 mg tablet (Eliquis) 5 mg PO BID 09/15/20 11/28/20 History aspirin 81 mg tablet,delayed 81 mg PO QAM 09/15/20 11/28/20 History release (Aspirin Low Dose) atorvastatin 80 mg tablet (Lipitor) 80 mg PO QAM 09/15/20 11/28/20 History chlorhexidine gluconate 0.12 % 1 applic PO TID 09/15/20 11/28/20 History mouthwash (Peridex) cholecalciferol (vitamin D3) 25 25 mcg PO QAM 09/15/20 11/28/20 History mcg (1,000 unit) capsule (Vitamin D3) clopidogrel 75 mg tablet (Plavix) 75 mg PO QAM 09/15/20 11/28/20 History docusate sodium 100 mg capsule 100 mg PO BID 09/15/20 11/28/20 History (Colace) finasteride 5 mg tablet (Proscar) 5 mg PO QAM 09/15/20 11/28/20 History fluoxetine 20 mg capsule (Prozac) 20 mg PO QAM 09/15/20 11/28/20 History gabapentin 100 mg capsule 100 mg PO TID 09/15/20 11/28/20 History (Neurontin) metoprolol tartrate 25 mg tablet 12.5 mg PO QAM 09/15/20 11/28/20 History polyethylene glycol 3350 17 17 g PO TUTHSA 09/15/20 11/28/20 History gram/dose oral powder (Miralax) ropinirole 0.5 mg tablet 0.5 mg PO QID 09/15/20 11/28/20 History tamsulosin 0.4 mg capsule (Flomax) 0.4 mg PO QDD 09/15/20 11/28/20 History calcium carbonate 200 mg calcium 500 mg PO BID 11/28/20 11/28/20 History (500 mg) chewable tablet (Calcium Antacid) lisinopril 5 mg tablet (Zestril) 5 mg PO QAM 11/28/20 11/28/20 History Patient History Medical History Acute CHF Anemia Atrial fibrillation Benign prostatic hyperplasia with urinary obstruction Bladder calculi BPH (benign prostatic hypertrophy) CAD (coronary artery disease) Chronic anticoagulation COPD (chronic obstructive pulmonary disease) GIB (gastrointestinal bleeding) Hematuria History of CVA (cerebrovascular accident) HTN (hypertension) Hypercholesterolemia Rectal bleeding ST elevation myocardial infarction (STEMI) Tobacco use UTI (urinary tract infection) Surgical History History of hernia repair Presence of stent in coronary artery S/P drug eluting coronary stent placement S/P PTCA (percutaneous transluminal coronary angioplasty) Family History Denies family history of Ovarian cancer Prostate cancer Myocardial infarction Breast cancer Colorectal cancer Social History Smoking Status: Former smoker Tobacco Type: Cigarettes Hx Alcohol Use: No Hx Substance Use: No Preferred Language: [place] Communication Ability: Impaired Communication Ability Comment: Forgetful Reserve Operator Required: No Beliefs That Will Affect Care: None marital status: Current Living Situation: Longterm Current Living Situation Comment: [facility] (for rehab per pt) current occupational status: employed and retired current occupation: [employer] Other Information That Helps Us Care for You: No Feels Safe at Home: Yes Safety Concerns: Feels Safe At This Time Dental Care, Regularly: No Physical Activity Frequency: Does not Exercise Assistive Devices: Glasses Results & Data ([facility]) Vital Signs (Past 12 Hours) Vital Signs Temp Pulse Pulse Resp BP Pulse Ox 12/03/20 11:21 36.4 C L 52 L 18 120/64 92 12/03/20 07:56 36.5 C 69 20 153/53 H 92 12/03/20 07:16 66 12/03/20 03:46 36.5 C 68 16 132/64 92 He is awake alert oriented x3 he looks much older than his stated age HEENT: Mildly reduced carotid upstrokes Lungs: Globally decreased breath sounds Heart: Regular rate and rhythm Abdomen: Soft nontender distended positive bowel sounds Extremities no clubbing cyanosis or edema Psychiatric.He is a poor historian. IMPRESSIONS(1) history of acute AK: -100% acute occlusion involving the distal end of prior stent November 2019 - (2) CAD (coronary artery disease): -had a proximal LAD stent placed in 2003. -only luminal irregularities noted in other coronary arteries. (3) HTN (hypertension): -adequate control on current medical regimen. (4) Hypercholesterolemia: - 5. Mild ischemic cardiomyopathy based on an echocardiogram from [facility] 6. Anemia and probable GI bleed 7 right MCA stroke shortly after his discharge November 2019 after his heart attack requiring emergent transfer to [facility]. He was found to be in atrial fibrillation in the emergency room 8. Paroxysmal atrial fibrillation with a markedly elevated chads 2 Vascor At this point he is a year out from his angioplasty and stenting and therefore he does not need his Plavix anymore. His aspirin can be held for now. He is in sinus rhythm on the monitor ideally he needs to be on anticoagulation given his history of prior stroke related to atrial fibrillation which which places him at very high risk for having a recurr ent embolic event. If he is deemed not a candidate for anticoagulation then a watchman procedure would be an option but he would still need antiplatelet therapy and anticoagulation over a 3-month period of time. Ideally he should be on 81 mg of enteric-coated aspirin given his known coronary artery disease. Dr. Connolly will be returning tomorrow..
[2020-12-03] MEDS: TAMSULOSIN HCL 0.4 MG CAP PO SCH (16:58)
[2020-12-04 06:54] LABS: Hematocrit (blood only) 23.8 % (42-52); Hemoglobin 8.1 g/dL (14.0-18.0)
[2020-12-04 07:30] LABS: BUN Creatinine Ratio 24.4 (10-20); Creatinine Clr Calc Pharmacy 98.3 ml/min; Est GFR (Non-African American) 89.7 ml/min; Potassium 3.5 mmol/L (3.5-5.1)
[2020-12-04] MEDS ORDERED: POTASSIUM CHLORIDE CRTAB 20 MEQ TABCR PO STA (07:54)
--- NOTE | 2020-12-04 07:55 | Hospitalist Progress Note ---
Date of Service December 04, 2020 Assessment & Plan (1) GI bleed: Plan: - H&H 11.7/35.4 on admission - Hgb 8.0 overnight -2 units of packed red blood cells ordered overnight - 1 unit given again on 11/29 and again 1 unit overnight (now total s/p 4 units) - GI consulted- Dr. Blackmon - Patient underwent upper endoscopy yesterday, November 29, which was unremarkable - Now s/p colonoscopy , November 30, w/ Dr. Blackmon - Impression: - Non-thrombosed external hemorrhoids found on digital rectal exam. - One 10 mm polyp at the hepatic flexure, removed with a hot snare. Resected and retrieved. Clips (MR conditional) were placed. - One 14 mm polyp in the sigmoid colon, removed with a hot snare. Resected and retrieved. Injected. Clips (MR conditional) were placed. - Internal hemorrhoids. Mild diverticulosis in the sigmoid colon. - A single (solitary) ulcer in the mid rectum. Clip (MR conditional) was placed. Recommendation: - Repeat colonoscopy in 6 months for surveillance. - Await pathology results. - Miralax 1 capful (17 grams) in 8 ounces of water PO daily indefinitely. - Hold antiplatelets (baby asa, plavix) also eliquis for hx of DVT in November 2019. Contacted pt's game room attendant (Dr. Connolly about AC therapy -recommend to test FOBT on each stool, prefers to start Eliquis, then Plavix, can stop aspirin) - Check ekg, pt is currently in regular rhythm, was tachycardic, now improved. - Check CT abd/pelvis with PO and IV contrast- pt denies abd pain/v/n. 12/02 Patient had a large bowel movement, liquid, no more bleeding Current hemoglobin 8.6 Currently on clear liquid diet, will advance 12/03 Patient had a large bowel movement, liquid, no blood Current hemoglobin 8.2 Advanced diet yesterday, patient is tolerating 12/04 Hemoglobin fairly stable, will check FOBT, if negative, will start Eliquis (2) CAD (coronary artery disease): Plan: - chronic, no acute issues (3) Atrial fibrillation: Plan: - Continue rate control with metoprolol tartrate, amiodarone. Holding anticoagulation with GI bleed presently. - Will need to discuss with cardiology regarding anticoagulation prior to discharge, with GI regarding when safe to resume anticoagulation. (4) History of CVA (cerebrovascular accident): Plan: - Hx of such, chronic, left hemiplegia, dysarthria is mild, some memory impairment but answers all questions appropriately. - Turn and repo - PT/OT consults - Continue tylenol around the clock for joint pains (5) S/P drug eluting coronary stent placement: Plan: - Hx of such to LAD LAD 2003 and 11/2019 on plavix - as above - EKG as above - Consider cardiology consult (6) HTN (hypertension): Plan: - Cont lisinopril, metoprolol tartrate (7) Hypercholesterolemia: Plan: - Cont atorvastatin 80 mg daily (8) COPD (chronic obstructive pulmonary disease): Plan: - Stable, not on routine inhalers, does not wear O2 at baseline. Currently 93% on RA. (9) BPH (benign prostatic hypertrophy): Plan: - Cont flomax - noted that pt has been following with urology recently with Dr. Solano for hx of hematuria, monitor. Poss. UTI UA concerning for UTI, started empiric Rocephin urine culture shows mixed roro likely skin roro, will stop Abx (10) DVT prophylaxis: Plan: - teds, scds, holding anticoagulation in the setting of GI bleed. CODE: Full code - discussed with the pt at bedside. Dispo: From home, likely to remain in the hospital x 1-2 days Admission and Anticipated Discharge Date Admission Date: November 29, 2020 Subjective Patient seen in follow-up of GI bleed Underwent colonoscopy during this admission Currently laying in bed, in no acute distress, breathing comfortably on room air, denies any abdominal pain Denies chest pain shortness of breath Hgb fairly stable Advanced diet, patient tolerates well Discussed with Dr. Connolly - will test FOBT - each stool, plan to start Eliquis when stable, then plavix, (will hold ASA) Review of Systems Review of Systems: All systems reviewed, negative, unless as above Constitutional: no fever and no chills Respiratory: no cough and no dyspnea Gastrointestinal: no abdominal pain and no blood in stools Physical Exam Physical Exam: General: awake, alert, no apparent distress Head: Normocephalic, atraumatic ENT: PERRL, EOMI, no pharyngeal exudate, mucous membranes moist Chest: Clear to auscultation, on room air, no adventitious breath sounds Cardiac: RRR, no murmur, no JVD, normal peripheral pulses, good capillary refill Abdominal: NABS x 4 quadrants, soft, nondistended, nontender to palpation, no rebound or guarding Extremities: Normal inspection, + chronic venous stasis changes bilaterally, no peripheral edema or erythema, calves nontender to palpation, + contracture left hand and muscular atrophy left lower extremity Psych: Normal mood, flat affect Neuro: AAO x 3, left hemiplegia, speech is sometimes delayed, clear, no peripheral sensory deficits Results & Data Results & Data ([facility]) Vital Signs (Past 12 Hours) Vital Signs Temp Pulse Pulse Resp BP Pulse Ox 12/04/20 04:00 36.5 C 67 16 149/52 H 92 12/03/20 23:20 58 L 12/03/20 22:46 37.0 C 69 18 134/67 94 Laboratory Results 12/04/20 12/04/20 Range/Units 06:26 06:26 Hgb 8.1 L (14.0-18.0) g/dL Hct 23.8 L (42-52) % Sodium 141 (136-145) mmol/L Potassium 3.5 (3.5-5.1) mmol/L Chloride 111 H (98-107) mmol/L Carbon Dioxide 25 (21-32) mmol/L Anion Gap 5.0 (3-11) BUN 19 H (7-18) mg/dl Creatinine 0.79 (0.6-1.4) mg/dl Est Cr Clr Drug Dosing 98.3 ml/min Est GFR ( Amer) 104.0 ml/min Est GFR (Non-Af Amer) 89.7 ml/min BUN/Creatinine Ratio 24.4 H (10-20) Glucose 84 (70-99) mg/dl Calcium 8.0 L (8.5-10.1) mg/dl Medications Administered Current Inpatient Medications Acetaminophen (Acetaminophen 325 Mg Tab) 650 mg PO Q4H PRN PRN Reason: Moderate Pain Stop: 12/28/20 14:21 Acetaminophen (Acetaminophen 500 Mg Tab) 500 mg PO QID [facility] Stop: 12/28/20 16:59 Last Admin: 12/03/20 21:09 Dose: 500 mg Documented by: Amiodarone HCl (Amiodarone 200 Mg Tab) 200 mg PO [facility] Stop: 12/29/20 08:59 Last Admin: 12/03/20 08:36 Dose: 200 mg Documented by: Atorvastatin Calcium (Atorvastatin 40 Mg Tab) [facility] Stop: 12/29/20 08:59 Last Admin: 12/03/20 08:36 Dose: 80 mg Documented by: Chlorhexidine Gluconate (Chlorhexidine Gluconate 0.12% 480 Ml) 15 ml MT TID@0901,1301,1701 [facility] Stop: 12/28/20 14:30 Last Admin: 12/03/20 16:57 Dose: 15 ml Documented by: Finasteride (Finasteride 5 Mg Tab) 5 mg PO [facility] Stop: 12/29/20 08:59 Last Admin: 12/03/20 08:37 Dose: 5 mg Documented by: Fluoxetine HCl (Fluoxetine Hcl 20 Mg Cap) 20 mg PO [facility] Stop: 12/29/20 08:59 Last Admin: 12/03/20 08:37 Dose: 20 mg Documented by: Gabapentin (Gabapentin 100 Mg Cap) 100 mg PO TID [facility] Stop: 12/28/20 14:34 Last Admin: 12/03/20 21:09 Dose: 100 mg Documented by: Sodium Chloride (Nss 1000ml) 1,000 mls @ 125 mls/hr IV .Q8H [facility] Stop: 12/28/20 18:44 Last Infusion: 12/02/20 08:49 Dose: Infused Documented by: Lisinopril (Lisinopril 2.5 Mg Tab) 2.5 mg PO [facility] Stop: 01/01/21 08:59 Last Admin: 12/03/20 08:37 Dose: 2.5 mg Documented by: Metoprolol Tartrate (Metoprolol Tartrate 25 Mg Tab) 12.5 mg PO [facility] Stop: 12/29/20 08:59 Last Admin: 12/03/20 08:36 Dose: 12.5 mg Documented by: Multivitamins (Multivitamin Tab) 1 tab PO [facility] Stop: 12/29/20 08:59 Last Admin: 12/03/20 08:36 Dose: 1 tab Documented by: Ondansetron HCl (Ondansetron Inj 2 Mg/Ml 2 Ml Vial) 4 mg IV Q4H PRN PRN Reason: Nausea And Vomiting Stop: 12/28/20 14:21 Pantoprazole Sodium (Pantoprazole 40 Mg Tab) 40 mg PO QAM [facility] Stop: 12/31/20 08:59 Last Admin: 12/03/20 08:36 Dose: 40 mg Documented by: Polyethylene Glycol (Polyethylene (Miralax) 17 Gm Pack) 17 gm PO DAILY [facility] Stop: 12/31/20 08:59 Last Admin: 12/03/20 08:38 Dose: Not Given Documented by: Potassium Chloride (Potassium Chloride Crtab 20 Meq Tabcr) 40 meq PO NOW [facility] Stop: 12/04/20 07:55 Potassium Phosphate (Pot Phosphate Monobasic W/ Sod Tab) 1 tab PO QID [facility] Stop: 01/01/21 12:59 Last Admin: 12/03/20 21:09 Dose: 1 tab Documented by: Ropinirole HCl (Ropinirole Hcl 0.25 Mg Tablet) 0.5 mg PO QID@0901,1301,1701,2101 [facility] Stop: 12/28/20 14:36 Last Admin: 12/03/20 21:09 Dose: 0.5 mg Documented by: Tamsulosin HCl (Tamsulosin Hcl 0.4 Mg Cap) 0.4 mg PO QDD [facility] Stop: 12/28/20 16:29 Last Admin: 12/03/20 16:58 Dose: 0.4 mg Documented by: (1) BPH (benign prostatic hypertrophy) Lower urinary tract symptom presence: symptoms absent Qualified Code(s): N40.0 - Benign prostatic hyperplasia without lower urinary tract symptoms (2) CAD (coronary artery disease) Associated angina: without angina Coronary Disease-Associated Artery/Lesion type: [place] artery [place] vs. transplanted heart: [place] heart Qualified Code(s): I25.10 - Atherosclerotic heart disease of [place] coronary artery without angina pectoris (3) HTN (hypertension) Hypertension type: essential hypertension Qualified Code(s): I10 - Essential (primary) hypertension
[2020-12-04] MEDS: FLUoxetine HCL 20 MG CAP PO SCH (09:12)
[2020-12-04] MEDS: GABAPENTIN 100 MG CAP PO SCH ×3 (09:12→20:36)
[2020-12-04] MEDS: lisinopril 2.5 MG TAB PO SCH (09:12)
[2020-12-04] MEDS: CHLORHEXIDINE GLUCONATE 0.12% 480 ML MT SCH ×3 (09:12→17:04)
[2020-12-04] MEDS: ACETAMINOPHEN 500 MG TAB PO SCH ×4 (09:13→20:35)
[2020-12-04] MEDS: FINASTERIDE 5 MG TAB PO SCH (09:13)
[2020-12-04] MEDS: PANTOprazole 40 MG TAB PO SCH (09:13)
[2020-12-04] MEDS: rOPINIRole HCL 0.25 MG TABLET PO SCH ×4 (09:13→20:35)
[2020-12-04] MEDS: ATORVASTATIN 40 MG TAB PO SCH (09:13)
[2020-12-04] MEDS: AMIODARONE 200 MG TAB PO SCH (09:13)
[2020-12-04] MEDS: METOPROLOL TARTRATE 25 MG TAB PO SCH (09:14)
[2020-12-04] MEDS: MULTIVITAMIN TAB PO SCH (09:14)
[2020-12-04] MEDS: POT PHOSPHATE MONOBASIC W/ SOD TAB PO SCH ×4 (09:14→20:36)
[2020-12-04] MEDS: POLYETHYLENE (MIRALAX) 17 GM PACK PO SCH (09:14)
[2020-12-04] MEDS: TAMSULOSIN HCL 0.4 MG CAP PO SCH (17:06)
[2020-12-05 07:53] LABS: Hematocrit (blood only) 26.2 % (42-52); Hemoglobin 8.6 g/dL (14.0-18.0)
[2020-12-05] MEDS: GABAPENTIN 100 MG CAP PO SCH ×3 (10:13→20:43)
[2020-12-05] MEDS: rOPINIRole HCL 0.25 MG TABLET PO SCH ×4 (10:13→20:43)
[2020-12-05] MEDS: AMIODARONE 200 MG TAB PO SCH (10:14)
[2020-12-05] MEDS: POTASSIUM CHLORIDE CRTAB 20 MEQ TABCR PO SCH (10:14)
[2020-12-05] MEDS: lisinopril 2.5 MG TAB PO SCH (10:14)
[2020-12-05] MEDS: PANTOprazole 40 MG TAB PO SCH (10:14)
[2020-12-05] MEDS: FLUoxetine HCL 20 MG CAP PO SCH (10:15)
[2020-12-05] MEDS: POT PHOSPHATE MONOBASIC W/ SOD TAB PO SCH ×4 (10:15→20:43)
[2020-12-05] MEDS: ATORVASTATIN 40 MG TAB PO SCH (10:15)
[2020-12-05] MEDS: ACETAMINOPHEN 500 MG TAB PO SCH ×4 (10:15→20:43)
[2020-12-05] MEDS: MULTIVITAMIN TAB PO SCH (10:15)
[2020-12-05] MEDS: FINASTERIDE 5 MG TAB PO SCH (10:16)
[2020-12-05] MEDS: METOPROLOL TARTRATE 25 MG TAB PO SCH (10:16)
[2020-12-05] MEDS: POLYETHYLENE (MIRALAX) 17 GM PACK PO SCH (10:17)
[2020-12-05] MEDS: CHLORHEXIDINE GLUCONATE 0.12% 480 ML MT SCH ×3 (10:17→17:34)
[2020-12-05] MEDS: APIXABAN 5 MG TABLET PO SCH ×2 (10:32→20:43)
--- NOTE | 2020-12-05 13:19 | Cardiology Progress Note ---
Date of Service December 05, 2020 Assessment & Plan (1) CAD (coronary artery disease): Plan: -origin only had a stent placed in LAD back in 2003. -had an acute occlusion of the stent in November 2019. -3.5 x 22 mm GEOR[place]IE overlapping prior stent, November 2019. -continue metoprolol tartrate and lisinopril. -would restart clopidogrel when able. -would not use aspirin (rectal ulcer). (2) Atrial fibrillation: Plan: -has remained in sinus rhythm on amiodarone therapy. -agree with restarting Eliquis as no occult blood in stool. (3) HTN (hypertension): Plan: -adequate control on current regimen. (4) Hypercholesterolemia: Plan: -continue atorvastatin. (5) Rectal bleeding: Plan: -stool negative for occult blood. -Eliquis restarted yesterday. -would favor clopidogrel over aspirin. Admission and Anticipated Discharge Date Admission Date: November 29, 2020 Subjective The patient is resting comfortably in bed without complaints of chest pain, dyspnea, or palpitations. Physical Exam Physical Exam: In general is well-developed well-nourished white male lying supine in bed without complaints. HEENT exam is negative except for poor dentition. Neck is supple with full carotid upstrokes. No carotid bruits. Jugular venous pressure is flat at 90. Cardiovascular exam reveals regular rhythm with normal S1-S2. Heart sounds are distant. No obvious murmurs. Lungs are clear without rales, rhonchi or wheeze rib abdomen is soft without bruits. Extremities reveal intact radial artery pulses bilaterally. There is no peripheral edema. 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 No atrial fibrillation. PG Care Time/CCT Total # of Minutes Spent Total Time Spent with Patient: Total time spent is greater than 50% in coordination of care (as documented) at patient's floor/unit and/or counseling patient: Coding Level of Care Code 15809 Subseq Hosp Care Lvl 3 Diagnoses CAD (coronary artery disease) I25.10 Coronary Disease-Associated Artery/Lesion type: [place] artery [place] vs. transplanted heart: [place] heart Associated angina: without angina Atrial fibrillation I48.91 HTN (hypertension) I10 Hypertension type: essential hypertension Hypercholesterolemia E78.00 Rectal bleeding K62.5 (1) CAD (coronary artery disease) Coronary Disease-Associated Artery/Lesion type: [place] artery [place] vs. transplanted heart: [place] heart Associated angina: without angina Qualified Code(s): I25.10 - Atherosclerotic heart disease of [place] coronary artery without angina pectoris (2) HTN (hypertension) Hypertension type: essential hypertension Qualified Code(s): I10 - Essential (primary) hypertension
--- NOTE | 2020-12-05 13:31 | Hospitalist Progress Note ---
Date of Service December 05, 2020 Assessment & Plan (1) GI bleed: Plan: - H&H 11.7/35.4 on admission - Hgb 8.0 overnight -2 units of packed red blood cells ordered overnight - 1 unit given again on 11/29 and again 1 unit overnight (now total s/p 4 units) - GI consulted- Dr. Blackmon - Patient underwent upper endoscopy yesterday, November 29, which was unremarkable - Now s/p colonoscopy , November 30, w/ Dr. Blackmon - Impression: - Non-thrombosed external hemorrhoids found on digital rectal exam. - One 10 mm polyp at the hepatic flexure, removed with a hot snare. Resected and retrieved. Clips (MR conditional) were placed. - One 14 mm polyp in the sigmoid colon, removed with a hot snare. Resected and retrieved. Injected. Clips (MR conditional) were placed. - Internal hemorrhoids. Mild diverticulosis in the sigmoid colon. - A single (solitary) ulcer in the mid rectum. Clip (MR conditional) was placed. Recommendation: - Repeat colonoscopy in 6 months for surveillance. - Await pathology results. - Miralax 1 capful (17 grams) in 8 ounces of water PO daily indefinitely. - Hold antiplatelets (baby asa, plavix) also eliquis for hx of DVT in November 2019. 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 - Check CT abd/pelvis with PO and IV contrast- pt denies abd pain/v/n. 12/02 Patient had a large bowel movement, liquid, no more bleeding Current hemoglobin 8.6 Currently on clear liquid diet, will advance 12/03 Patient had a large bowel movement, liquid, no blood Current hemoglobin 8.2 Advanced diet yesterday, patient is tolerating 12/04 Hemoglobin fairly stable, will check FOBT, if negative, will start Eliquis 12/05 FOBT - negative, started Eliquis -continue to closely monitor for any GI bleed Check H&H this evening (2) CAD (coronary artery disease): Plan: - chronic, no acute issues (3) Atrial fibrillation: Plan: - Continue rate control with metoprolol tartrate, amiodarone. Holding anticoagulation on admission with GI bleed - Discussed with cardiology regarding anticoagulation prior to discharge, with GI regarding when safe to resume anticoagulation. FOBT negative, started Eliquis (12/05/20) (4) History of CVA (cerebrovascular accident): Plan: - Hx of such, chronic, left hemiplegia, dysarthria is mild, some memory impairment but answers all questions appropriately. - Turn and repo - PT/OT consults - Continue tylenol around the clock for joint pains (5) S/P drug eluting coronary stent placement: Plan: - Hx of such to LAD LAD 2003 and 11/2019 on plavix - as above - EKG as above - Consider cardiology consult (6) HTN (hypertension): Plan: - Cont lisinopril, metoprolol tartrate (7) Hypercholesterolemia: Plan: - Cont atorvastatin 80 mg daily (8) COPD (chronic obstructive pulmonary disease): Plan: - Stable, not on routine inhalers, does not wear O2 at baseline. Currently 93% on RA. (9) BPH (benign prostatic hypertrophy): Plan: - Cont flomax - noted that pt has been following with urology recently with Dr. Solano for hx of hematuria, monitor. Poss. UTI UA concerning for UTI, started empiric Rocephin urine culture shows mixed roro likely skin roro, will stop Abx (10) DVT prophylaxis: Plan: - teds, scds, holding anticoagulation in the setting of GI bleed. CODE: Full code - discussed with the pt at bedside. Dispo: From home, likely to remain in the hospital x 1-2 days Admission and Anticipated Discharge Date Admission Date: November 29, 2020 Subjective Patient seen in follow-up of GI bleed Underwent colonoscopy during this admission Currently laying in bed, in no acute distress, breathing comfortably on room air, denies any abdominal pain Denies chest pain shortness of breath Hgb 8.6 stable Advanced diet, patient tolerates well FOBT -negative Discussed with Dr. Connolly - given negat. FOBT, will start Eliquis (plan is then to restart plavix and stop ASA) Recheck H&H this evening Review of Systems Review of Systems: All systems reviewed, negative, unless as above Constitutional: no fever and no chills Respiratory: no cough and no dyspnea Gastrointestinal: no abdominal pain and no blood in stools Physical Exam Physical Exam: General: awake, alert, no apparent distress Head: Normocephalic, atraumatic ENT: PERRL, EOMI, no pharyngeal exudate, mucous membranes moist Chest: Clear to auscultation, on room air, no adventitious breath sounds Cardiac: RRR, no murmur, no JVD, normal peripheral pulses, good capillary refill Abdominal: NABS x 4 quadrants, soft, nondistended, nontender to palpation, no rebound or guarding Extremities: Normal inspection, + chronic venous stasis changes bilaterally, no peripheral edema or erythema, calves nontender to palpation, + contracture left hand and muscular atrophy left lower extremity Psych: Normal mood, flat affect Neuro: AAO x 3, left hemiplegia, speech is sometimes delayed, clear, no peripheral sensory deficits Results & Data Results & Data ([facility]) Vital Signs (Past 12 Hours) Vital Signs Temp Pulse Resp BP Pulse Ox 12/05/20 11:35 36.6 C 53 L 18 125/57 L 93 12/05/20 07:26 36.5 C 75 20 144/85 H 94 12/05/20 03:30 36.6 C 62 16 110/48 L 90 Laboratory Results 12/05/20 12/04/20 11/28/20 Range/Units 07:08 18:20 12:04 Hgb 8.6 L (14.0-18.0) g/dL Hct 26.2 L (42-52) % Stool Occult Bld Scrn Negative (Negative) Stool Comments SEE NOTE Medications Administered Current Inpatient Medications Acetaminophen (Acetaminophen 325 Mg Tab) 650 mg PO Q4H PRN PRN Reason: Moderate Pain Stop: 12/28/20 14:21 Acetaminophen (Acetaminophen 500 Mg Tab) 500 mg PO QID [facility] Stop: 12/28/20 16:59 Last Admin: 12/05/20 10:15 Dose: 500 mg Documented by: Amiodarone HCl (Amiodarone 200 Mg Tab) 200 mg PO QAM [facility] Stop: 12/29/20 08:59 Last Admin: 12/05/20 10:14 Dose: 200 mg Documented by: Apixaban (Apixaban 5 Mg Tablet) 5 mg PO BID [facility] Stop: 01/04/21 08:59 Last Admin: 12/05/20 10:32 Dose: 5 mg Documented by: Atorvastatin Calcium (Atorvastatin 40 Mg Tab) 80 mg PO [facility] Stop: 12/29/20 08:59 Last Admin: 12/05/20 10:15 Dose: 80 mg Documented by: Chlorhexidine Gluconate (Chlorhexidine Gluconate 0.12% 480 Ml) 15 ml MT TID@0901,1301,1701 [facility] Stop: 12/28/20 14:30 Last Admin: 12/05/20 10:17 Dose: 15 ml Documented by: Finasteride (Finasteride 5 Mg Tab) 5 mg PO [facility] Stop: 12/29/20 08:59 Last Admin: 12/05/20 10:16 Dose: 5 mg Documented by: Fluoxetine HCl (Fluoxetine Hcl 20 Mg Cap) 20 mg PO [facility] Stop: 12/29/20 08:59 Last Admin: 12/05/20 10:15 Dose: 20 mg Documented by: Gabapentin (Gabapentin 100 Mg Cap) 100 mg PO TID [facility] Stop: 12/28/20 14:34 Last Admin: 12/05/20 10:13 Dose: 100 mg Documented by: Sodium Chloride (Nss 1000ml) 1,000 mls @ 125 mls/hr IV .Q8H [facility] Stop: 12/28/20 18:44 Last Infusion: 12/02/20 08:49 Dose: Infused Documented by: Lisinopril (Lisinopril 2.5 Mg Tab) 2.5 mg PO [facility] Stop: 01/01/21 08:59 Last Admin: 12/05/20 10:14 Dose: 2.5 mg Documented by: Metoprolol Tartrate (Metoprolol Tartrate 25 Mg Tab) 12.5 mg PO [facility] Stop: 12/29/20 08:59 Last Admin: 12/05/20 10:16 Dose: 12.5 mg Documented by: Multivitamins (Multivitamin Tab) 1 tab PO [facility] Stop: 12/29/20 08:59 Last Admin: 12/05/20 10:15 Dose: 1 tab Documented by: Ondansetron HCl (Ondansetron Inj 2 Mg/Ml 2 Ml Vial) 4 mg IV Q4H PRN PRN Reason: Nausea And Vomiting Stop: 12/28/20 14:21 Pantoprazole Sodium (Pantoprazole 40 Mg Tab) 40 mg PO QAM [facility] Stop: 12/31/20 08:59 Last Admin: 12/05/20 10:14 Dose: 40 mg Documented by: Polyethylene Glycol (Polyethylene (Miralax) 17 Gm Pack) 17 gm PO DAILY [facility] Stop: 12/31/20 08:59 Last Admin: 12/05/20 10:17 Dose: 17 gm Documented by: Potassium Chloride (Potassium Chloride Crtab 20 Meq Tabcr) 20 meq PO QAM [facility] Stop: 01/04/21 08:59 Last Admin: 12/05/20 10:14 Dose: 20 meq Documented by: Potassium Phosphate (Pot Phosphate Monobasic W/ Sod Tab) 1 tab PO QID [facility] Stop: 01/01/21 12:59 Last Admin: 12/05/20 10:15 Dose: 1 tab Documented by: Ropinirole HCl (Ropinirole Hcl 0.25 Mg Tablet) 0.5 mg PO QID@0901,1301,1701,2101 [facility] Stop: 12/28/20 14:36 Last Admin: 12/05/20 10:13 Dose: 0.5 mg Documented by: Tamsulosin HCl (Tamsulosin Hcl 0.4 Mg Cap) 0.4 mg PO QDD [facility] Stop: 12/28/20 16:29 Last Admin: 12/04/20 17:06 Dose: 0.4 mg Documented by: (1) BPH (benign prostatic hypertrophy) Lower urinary tract symptom presence: symptoms absent Qualified Code(s): N40.0 - Benign prostatic hyperplasia without lower urinary tract symptoms (2) CAD (coronary artery disease) Associated angina: without angina Coronary Disease-Associated Artery/Lesion type: [place] artery [place] vs. transplanted heart: [place] heart Qualified Code(s): I25.10 - Atherosclerotic heart disease of [place] coronary artery without angina pectoris (3) HTN (hypertension) Hypertension type: essential hypertension Qualified Code(s): I10 - Essential (primary) hypertension
[2020-12-05] MEDS: TAMSULOSIN HCL 0.4 MG CAP PO SCH (17:36)
[2020-12-05 21:01] LABS: Hematocrit (blood only) 25.7 % (42-52); Hemoglobin 8.6 g/dL (14.0-18.0)
[2020-12-06 06:35] LABS: Hematocrit (blood only) 26.1 % (42-52); Hemoglobin 8.7 g/dL (14.0-18.0)
[2020-12-06] MEDS: rOPINIRole HCL 0.25 MG TABLET PO SCH ×4 (08:22→21:17)
[2020-12-06] MEDS: MULTIVITAMIN TAB PO SCH (08:22)
[2020-12-06] MEDS: POTASSIUM CHLORIDE CRTAB 20 MEQ TABCR PO SCH (08:23)
[2020-12-06] MEDS: ATORVASTATIN 40 MG TAB PO SCH (08:23)
[2020-12-06] MEDS: lisinopril 2.5 MG TAB PO SCH (08:23)
[2020-12-06] MEDS: FINASTERIDE 5 MG TAB PO SCH (08:24)
[2020-12-06] MEDS: FLUoxetine HCL 20 MG CAP PO SCH (08:24)
[2020-12-06] MEDS: AMIODARONE 200 MG TAB PO SCH (08:24)
[2020-12-06] MEDS: PANTOprazole 40 MG TAB PO SCH (08:24)
[2020-12-06] MEDS: METOPROLOL TARTRATE 25 MG TAB PO SCH (08:25)
[2020-12-06] MEDS: POT PHOSPHATE MONOBASIC W/ SOD TAB PO SCH ×4 (08:25→21:16)
[2020-12-06] MEDS: ACETAMINOPHEN 500 MG TAB PO SCH ×5 (08:26→21:12)
[2020-12-06] MEDS: GABAPENTIN 100 MG CAP PO SCH ×3 (08:26→21:16)
[2020-12-06] MEDS: APIXABAN 5 MG TABLET PO SCH ×2 (08:26→21:16)
[2020-12-06] MEDS: CHLORHEXIDINE GLUCONATE 0.12% 480 ML MT SCH ×3 (08:27→17:56)
[2020-12-06] MEDS: POLYETHYLENE (MIRALAX) 17 GM PACK PO SCH (08:27)
[2020-12-06] MEDS ORDERED: OPTIRAY 320 125ml IV ONE (15:36)
--- NOTE | 2020-12-06 15:39 | CT Scan Report ---
CT OF THE HEAD WITHOUT CONTRAST CLINICAL HISTORY: Altered mental status. Stroke alert. COMPARISON STUDY: Head CT September 15, 2020. CT DOSE: 945.81 mGy.cm TECHNIQUE: Helical axial images of the head were obtained without IV contrast. Automated exposure con trol was utilized for the study. A dose lowering technique was utilized adhering to the principles o f ALARA. FINDINGS: No acute intracranial hemorrhage, midline shift or mass effect is present. Note is again ma de of extensive encephalomalacia within the right middle cerebral artery territory. This is unchanged . The appearance of the head is unchanged since CT of September 15, 2010. Ventricular system is stable. Basa l cisterns are patent. There are no extra-axial collections. There are no findings to suggest acute d ural sinus thrombosis or acute territorial infarct. IMPRESSION: No change in appearance of the brain. No acute findings. Old large right MCA territory i nfarct. ACT 112: Negative or not required by law. Electronically signed by: Bigg Rudolph M.D. 12/06/2020 3:38 PM
--- NOTE | 2020-12-06 15:48 | CT Scan Report ---
CT chest diagnostic wo con CLINICAL HISTORY: Acute respiratory failure COMPARISON STUDY: No previous studies for comparison. CT DOSE: TECHNIQUE: CT of the thorax was performed from the thoracic inlet to the lung bases. Images are revi ewed in the axial, sagittal, and coronal planes. IV contrast was not administered for this examinatio n. A dose lowering technique was utilized adhering to the principles of ALARA. FINDINGS: There is no axillary, supra clavicle or internal mammary lymphadenopathy seen. No significant mediastinal lymphadenopathy seen. Overall evaluation is limited due to significant motion artifact. Thyroid: Imaged portions of the thyroid gland are normal in appearance. Mild hiatal hernia is seen. Thoracic aorta: Thoracic aorta is normal in caliber with extensive calcifications within its arch and descending portion. Heart: Mild four-chamber cardiomegaly without definite pleural effusion. Heavy coronary calcification s and possible stents are seen. Lungs and pleural spaces: Trachea and the right bronchial tree is patent. Mild occlusion of the distal bronchi supplying left l ower lobe and lingula associated with patchy consolidation and septal thickening, concerning for pneu monia or/and aspiration. Small atelectasis is seen at dependent portion of the right lower lobe. Severe centrilobular and mild paraseptal emphysema is seen predominantly within bilateral upper lobes . Questionable area of irregular nodularity measuring approximately 2.5 x 0.9 cm in size is seen within left upper lobe which might represent scarring or pulmonary nodule (series 6 image 173). Evaluation of pulmonary parenchyma is limited due to significant motion artifact. Small left pleural effusion is seen. Upper abdomen: No definite acute abnormalities. Motion artifact limits evaluation. Skeletal structures: Diffuse osteopenia. Mild degenerative changes of the spine. No definite aggressi ve lesions are seen. IMPRESSION: 1. Patchy consolidative opacities associated with septal thickening and possible bronchial occlusion within left lower lobe which could represent pneumonia and/or aspiration. Please correlate this find ings with prior history of aspiration. 2. Small left pleural effusion is seen on the left. 3. Minimal atelectasis at dependent portion of the right lower lobe. 4. Emphysema 5. Questionable nodular irregularity within left upper lobe which might represent large pulmonary no dule or area of scarring. Significant motion artifact limits evaluation. Short-term follow-up in 4-6 weeks is recommended to document improvement improvement/resolution. 6. Mild hiatal hernia. 7. Cardiomegaly. 8. The rest of findings as above. ACT 112: Positive. There are findings on this exam that require communication between the performing entity and the patient following Patient Test Result Information Act ([place] Act 112) guidelines. The above report was generated using voice recognition software. It may contain grammatical, syntax o r spelling errors. Electronically signed by: Elena Nelson DO 12/06/2020 3:47 PM
--- NOTE | 2020-12-06 15:58 | CT Scan Report ---
CTA ANGIOGRAPHY OF THE HEAD CLINICAL HISTORY: Altered mental status. COMPARISON STUDY: CTA of the head December 06, 2019. TECHNIQUE: Helical axial images of the head were obtained following uneventful intravenous administr ation of 115 cc of Optiray. Sagittal and coronal reconstructions were viewed as well as maximal inten sity projections on an independent 3-D workstation. Automated exposure control was utilized for the study. A dose lowering technique was utilized adhering to the principles of ALARA. FINDINGS: Please note that the head CT will be reported separately. No acute intracranial hemorrhage, midline shift or mass effect is present. Extensive encephalomalacia within the right MCA distributio n represents an old infarct. The right middle cerebral artery has recanalized since CTA of December 05 020. No new sites of vessel occlusion within the intracranial vasculature are noted. There is moderat e atherosclerotic plaque. There is mild stenosis of the left cavernous carotid. No intracranial aneur ysm is identified. There is no dissection within the intracranial vessels. IMPRESSION: 1. No acute central vessel occlusion. No intracranial aneurysm. 2. Old large right MCA territory infarct. Recanalized right middle cerebral artery since CTA of December 06, 2019. 3. Moderate plaque within the intracranial vessels. Mild stenosis of the left cavernous carotid. ACT 112: Negative or not required by law. Electronically signed by: Bigg Rudolph M.D. 12/06/2020 3:57 PM
--- NOTE | 2020-12-06 16:05 | CT Scan Report ---
CT angio neck with con CLINICAL HISTORY: 70 years-old Male with condition change. Acutely altered mental status COMPARISON STUDY: CTA had of same day, CTA neck 12/06/2019 TECHNIQUE: Following the IV administration of 115 mL of Optiray, CT angiogram of the neck was perform ed from the aortic arch to the skull base. Images are reviewed in the axial, sagittal, and coronal pl anes. 3-D MIPS images are created and assessed. IV contrast was administered without complication. Al l measurements were calculated based on NASCET criteria. A dose lowering technique was utilized adhe ring to the principles of ALARA. CT DOSE: 553.41 mGy.cm FINDINGS: Study is mildly motion degraded. Mixed plaque of the thoracic aortic arch. There is patency of the in nominate artery and imaged proximal subclavian arteries. The bilateral common carotid arteries are wi jovani patent. Moderate mixed plaque of the left greater than right carotid bulbs and proximal internal carotid arteries results in less than 50% stenosis bilaterally, unchanged from comparison. Codominan t vertebral arteries. Calcified plaque at the origin of the bilateral vertebral arteries without high -grade stenosis. Moderate calcified plaque of the left V4 segment results in mild narrowing. No aneur ysm, dissection, high-grade stenosis or proximal branch occlusion. Severe emphysema. No pneumothorax. Layering left pleural effusion with dependent left lung apical opa cities suggestive of atelectasis. Unremarkable thyroid. The soft tissues are within normal limits. Mu ltilevel degenerative changes of the cervical spine. IMPRESSION: 1. Stable exam from 12/06/2019 without aneurysm, dissection, high-grade stenosis or arterial occlusion . 2. Severe emphysema. 3. Layering left pleural effusion. ACT 112: Negative or not required by law. The above report was generated using voice recognition software. It may contain grammatical, syntax o r spelling errors. Electronically signed by: Daniel Davis M.D. 12/06/2020 4:03 PM
[2020-12-06 16:24] LABS: Basophils # (auto) 0.02 K/uL (0-0.2); Basophils % (auto) 0.4 %; Eosinophils # (auto) 0.35 K/uL (0-0.5); Eosinophils % (auto) 7.2 %; Hematocrit (blood only) 26.5 % (42-52); Hemoglobin 8.7 g/dL (14.0-18.0); Immature Granulocytes # (auto) 0.01 K/uL (0.00-0.02); Immature Granulocytes % (auto) 0.2 %; Lymphocytes # (auto) 0.63 K/uL (1.2-3.4); Lymphocytes % (auto) 12.9 %; Mean Corpuscular Hemoglobin 29.7 pg (25-34); Mean Corpuscular Volume 90.4 fL (80-100); Mean Platelet Volume 9.7 fL (7.4-10.4); Monocytes # (auto) 0.29 K/uL (0.11-0.59); Monocytes % (auto) 5.9 %; Neutrophils # (auto) 3.59 K/uL (1.4-6.5); Neutrophils % (auto) 73.4 %; Platelet Count 216 K/uL (130-400); RDW Coefficient of Variation 14.3 % (11.5-14.5); RDW Standard Deviation 47.3 fL (36.4-46.3); Red Blood Count 2.93 M/uL (4.7-6.1); White Blood Count 4.89 K/uL (4.8-10.8)
[2020-12-06 16:32] LABS: Mean Corpuscular Hgb Conc 32.8 g/dL (32-36)
[2020-12-06 16:37] LABS: iSTAT Allen Test Pass; iSTAT Arterial Blood Gas HCO3 21 meg/L (19-24); iSTAT Arterial Blood Gas pCO2 31 mmHg (35-46); iSTAT Arterial Blood Gas pH 7.44 (7.35-7.45); iSTAT Arterial Blood Gas pO2 61 mmHg (80-95); iSTAT Carbon Dioxide 22 mmol/L (24-31); iSTAT Site R Radial
--- NOTE | 2020-12-06 16:41 | Hospitalist Progress Note ---
Date of Service December 06, 2020 Assessment & Plan (1) GI bleed: Plan: GI bleed S/P 5 units PRBCs -S/P Coloscopy:Non-thrombosed external hemorrhoids found on digital rectal exam. One 10 mm polyp at the hepatic flexure, removed with a hot snare. Resected and retrieved. Clips (MR conditional) were placed. One 14 mm polyp in the sigmoid colon, removed with a hot snare. Resected and retrieved. Injected. Clips (MR conditional) were placed. Internal hemorrhoids. Mild diverticulosis in the sigmoid colon. A single (solitary) ulcer in the mid rectum. Clip (MR conditional) was placed. -S/P EGD: Normal esophagus. Z-line regular, 42 cm from the incisors. Normal stomach. Normal examined duodenum. No specimens collected. -Pathology: Sessile serrated adenoma, tubular adenoma. -Appreciate GI input Continue daily MiraLAX Needs repeat colonoscopy in 6 months Monitor H&H Prior hospitalist discussed with window glazier helper Dr. Connolly Aspirin discontinued indefinitely Restarted Eliquis given history of paroxysmal A. fib, CVA, CAD S/P stent Plan to be we started on Plavix if hemoglobin remains stable, no recurrence of bleeding issues Recheck FOBT Unresponsive Episode DD: Seizure, Hypoxia -CT Head:No change in appearance of the brain. No acute findings. Old large right MCA territory infarct. -Head CTA:No acute central vessel occlusion. No intracranial aneurysm. Old large right MCA territory infarct. Recanalized right middle cerebral artery since CTA of December 06, 2019. Moderate plaque within the intracranial vessels. Mild stenosis of the left cavernous carotid. -Neck CTA: Stable exam from 12/06/2019 without aneurysm, dissection, high-grade stenosis or arterial occlusion. Severe emphysema. Layering left pleural effusion. -Ordered EEG -Consider MRI brain Consulted Neurology Acute Respiratory failure with Hypoxia -Chest CT: Patchy consolidative opacities associated with septal thickening and possible bronchial occlusion within left lower lobe which could represent pneumonia and/or aspiration. Please correlate this findings with prior history of aspiration. S Small left pleural effusion is seen on the left. Minimal atelectasis at dependent portion of the right lower lobe. Emphysema Questionable nodular irregularity within left upper lobe which might represent large pulmonary nodule or area of scarring. Significant motion artifact limits evaluation. Short-term follow-up in 4-6 weeks is recommended to document improvement improvement/resolution. Mild hiatal hernia. Cardiomegaly. -ABG pending -Aspiration precautions -Speech therapy consulted -Discussed with Churner -Monitor in ICU for now -Consider antibiotics if needed (2) CAD (coronary artery disease): Plan: chronic, no acute issues (3) Atrial fibrillation: Plan: - Continue metoprolol tartrate, amiodarone Restarted Eliquis (4) History of CVA (cerebrovascular accident): Plan: H/O CVA chronic, left hemiplegia, dysarthria is mild, some memory impairment but answers all questions appropriately. PT/OT (5) S/P drug eluting coronary stent placement: Plan: H/O CAD S/P Stent on plavix, Aspirin previously Appreciate cardiology Input (6) HTN (hypertension): Plan: Continue lisinopril, metoprolol tartrate (7) Hypercholesterolemia: Plan: - Continue statin (8) COPD (chronic obstructive pulmonary disease): Plan: - Continue home inhalers (9) BPH (benign prostatic hypertrophy): Plan: - Cont Flomax H/O Hematuria Follows with Urology Dr. Solano UTI ruled out (10) DVT prophylaxis: Plan: Eliquis CODE STATUS: Full code Admission and Anticipated Discharge Date Admission Date: November 29, 2020 Subjective Patient is seen and examined at bedside Was doing well this morning Had no recurrence of bleeding issues Denied any chest pain, shortness of breath, dizziness, nausea, abdominal pain Had code purple today afternoon while patient was unresponsive and had acute respiratory failure. Review of Systems Review of Systems: All systems reviewed & are unremarkable except as noted in Subjective Physical Exam Physical Exam: Physical Exam: Vitals signs as noted above General Appearance:Moderately built and nourished, no apparent distress Head: normocephalic, Atraumatic Eyes: normal inspection, EOMI Neck: supple, Trachea midline Respiratory/Chest: Normal breath sounds, CTA Cardiovascular: S1, S2, No murmur Abdomen/GI:Soft, Non tender, Bowel sounds present Extremities/Musculoskeletal:normal inspection, no edema Neurologic/Psych:Alert awake, Chronic left hemiplegia with contractures Skin: normal color, warm Results & Data Results & Data ([facility]) Vital Signs (Past 12 Hours) Vital Signs Temp Pulse Pulse Resp BP Pulse Ox 12/06/20 15:04 36.4 C L 55 L 20 125/58 L 99 12/06/20 11:21 36.1 C L 56 L 17 115/60 92 12/06/20 08:00 57 L 12/06/20 07:22 36.4 C L 66 20 146/75 H 91 Laboratory Results Short CBC 12/05/20 12/06/20 12/06/20 Range/Units 20:39 05:59 16:18 WBC 4.89 (4.8-10.8) K/uL Hgb 8.6 L 8.7 L 8.7 L (14.0-18.0) g/dL Hct 25.7 L 26.1 L 26.5 L (42-52) % Plt Count 216 (130-400) K/uL (1) CAD (coronary artery disease) Coronary Disease-Associated Artery/Lesion type: [place] artery [place] vs. transplanted heart: [place] heart Associated angina: without angina Qualified Code(s): I25.10 - Atherosclerotic heart disease of [place] coronary artery without angina pectoris (2) HTN (hypertension) Hypertension type: essential hypertension Qualified Code(s): I10 - Essential (primary) hypertension (3) BPH (benign prostatic hypertrophy) Lower urinary tract symptom presence: symptoms absent Qualified Code(s): N40.0 - Benign prostatic hyperplasia without lower urinary tract symptoms
[2020-12-06 16:56] LABS: Albumin Level 2.6 gm/dl (3.4-5.0); BUN Creatinine Ratio 21.6 (10-20); Bilirubin,Total 0.4 mg/dl (0.2-1); Calcium 8.3 mg/dl (8.5-10.1); Creatinine Clr Calc Pharmacy 85.3 ml/min; Est GFR (African American) 97.2 ml/min; Est GFR (Non-African American) 83.9 ml/min; Globulin 2.7 gm/dl (2.5-4.0); Magnesium 2.2 mg/dl (1.8-2.4); Potassium 4.1 mmol/L (3.5-5.1); Total Protein 5.3 gm/dl (6.4-8.2)
[2020-12-06] MEDS: TAMSULOSIN HCL 0.4 MG CAP PO SCH (17:55)
--- NOTE | 2020-12-06 19:25 | Critical Care Consultation ---
Date of Consultation December 06, 2020 Assessment & Plan (1) Admitted to intensive care unit: Reason Critically Ill: 70-year-old male with acute hypoxic event with concern for possible seizure-like activity versus somnolence with secondary effects from generalized hypoxia requiring close monitoring status post event. NEURO - * CAM ICU: negative * Altered mental status: * Appears to have resolved. * Question if related to degree of hypoxia. * CT/CTA unchanged from prior. * Patient reportedly back to baseline at this time. * History of CVA: * Persistent LEFT-sided hemiparesis and memory dysfunction. CARDIAC/VASCULAR - * Hypertension, hyperlipidemia, coronary artery disease, A. fib: * Continue home Rx as tolerated. * Monitor on telemetry. RESPIRATORY - * Acute hypoxia: * Likely secondary to aspiration event. * CT chest concerning for infiltrative changes likely related to aspiration. * Will cover with Unasyn with transition to Augmentin pending patient's improvement. * Ongoing pulmonary toilet. * Is now on minimal O2 requirement. * ABG if needed. * NIPPV >> intubation if decompensates. GI/NUTRITION - * Lower GIB: * s/p colonoscopy. * Received 5U PRBCs. * Continue Tx per GI Reccs. * AHA diet RENAL/LYTES - * No significant electrolyte derangements. * IVF: - * h/o BPH ENDO - * No h/o DM or thyroid dz. * BSGs per unit protocol. ISS --> gtt per unit policy. HEME - * Anemia: * Appears to have plateaued. * Received 5 total units PRBCs. * Concerning as patient on DOAC 2/2 A. fib. * Will defer to cardiology/GI for ongoing care. ID - * Aspiration pneumonia: * Will treat w/ IV Unasyn initially. * Will likely be able to transition to PO Augmentin if patient improves overnight. LINES/IV ACCESS - * PIVs x2 DVT PROPHYLAXIS - * Hold 2/2 recent LGIB * SCDs I have personally spent 32 minutes of critical care time in the direct management of this patient. This is a life/limb threatening event. This includes time spent evaluating patient, direct bedside care, chart review, placing orders, interpretation of diagnostic studies, discussion with consultants, patient, and family members, as well as other required patient management activities. This time is exclusive of all separately billable procedures, and teaching time and separate from and in addition to any other critical care service time. Thank you for allowing us to participate in the care of this patient. Please refer to my attending physician's documentation for any further recommendations. (2) Hypoxia: (3) Aspiration pneumonia: (4) History of CVA (cerebrovascular accident): (5) Atrial fibrillation: (6) GIB (gastrointestinal bleeding): (7) Chronic anticoagulation: (8) Rectal bleeding: History of Present Illness Attending Physician: Jeramy Eller MD History of Present Illness Patient is a 70-year-old male with a significant past medical history of CVA with residual LEFT-sided hemiparesis, BPH, hyperlipidemia, coronary artery disease, hypertension, COPD, A. fib anticoagulated on NOAC, CHF, tobacco use. Patient was noted to have bright red blood per rectum and was seen in the emergency department on 11/28. The patient underwent colonoscopy and has received a total of 5 units PRBCs. Apparently, earlier today, the patient was noted to be altered and there was concern for possible seizure-like activity versus new stroke. He was evaluated with imaging of his brain and neck. The patient returned to baseline mentation. CTA demonstrates possible aspiration event. The patient had been hypoxic during this event as well. The patient was moved to the ICU for ongoing evaluation and management. Upon evaluation in the ICU, the patient is awake and alert. The patient is a poor historian. He does provide appropriate answers to symptoms, however. Currently, the patient denies any complaints of headaches, dizziness, lightheadedness, chest pain, palpitations, pleuritic pain, nausea, vomiting, or abdominal discomfort. Allergies Allergy/AdvReac Type Severity Reaction Status Date / Time No Known Allergies Allergy Verified 11/28/20 08:50 Home Medications Medication Instructions Recorded Confirmed Type multivitamin (Daily Multi-Vitamin) 1 tab PO QAM 11/03/18 11/28/20 History acetaminophen 325 mg tablet 325 mg PO Q4H PRN 09/15/20 11/28/20 History (Tylenol) acetaminophen 500 mg tablet 500 mg PO QID 09/15/20 11/28/20 History (Acetaminophen Extra Strength) amiodarone 200 mg tablet (Pacerone) 200 mg PO QAM 09/15/20 11/28/20 History apixaban 5 mg tablet (Eliquis) 5 mg PO BID 09/15/20 11/28/20 History aspirin 81 mg tablet,delayed 81 mg PO QAM 09/15/20 11/28/20 History release (Aspirin Low Dose) atorvastatin 80 mg tablet (Lipitor) 80 mg PO QAM 09/15/20 11/28/20 History chlorhexidine gluconate 0.12 % 1 applic PO TID 09/15/20 11/28/20 History mouthwash (Peridex) cholecalciferol (vitamin D3) 25 25 mcg PO QAM 09/15/20 11/28/20 History mcg (1,000 unit) capsule (Vitamin D3) clopidogrel 75 mg tablet (Plavix) 75 mg PO QAM 09/15/20 11/28/20 History docusate sodium 100 mg capsule 100 mg PO BID 09/15/20 11/28/20 History (Colace) finasteride 5 mg tablet (Proscar) 5 mg PO QAM 09/15/20 11/28/20 History fluoxetine 20 mg capsule (Prozac) 20 mg PO QAM 09/15/20 11/28/20 History gabapentin 100 mg capsule 100 mg PO TID 09/15/20 11/28/20 History (Neurontin) metoprolol tartrate 25 mg tablet 12.5 mg PO QAM 09/15/20 11/28/20 History polyethylene glycol 3350 17 17 g PO TUTHSA 09/15/20 11/28/20 History gram/dose oral powder (Miralax) ropinirole 0.5 mg tablet 0.5 mg PO QID 09/15/20 11/28/20 History tamsulosin 0.4 mg capsule (Flomax) 0.4 mg PO QDD 09/15/20 11/28/20 History calcium carbonate 200 mg calcium 500 mg PO BID 11/28/20 11/28/20 History (500 mg) chewable tablet (Calcium Antacid) lisinopril 5 mg tablet (Zestril) 5 mg PO QAM 11/28/20 11/28/20 History Patient History Medical History Acute CHF Anemia Atrial fibrillation Benign prostatic hyperplasia with urinary obstruction Bladder calculi BPH (benign prostatic hypertrophy) CAD (coronary artery disease) Chronic anticoagulation COPD (chronic obstructive pulmonary disease) GIB (gastrointestinal bleeding) Hematuria History of CVA (cerebrovascular accident) HTN (hypertension) Hypercholesterolemia Rectal bleeding ST elevation myocardial infarction (STEMI) Tobacco use UTI (urinary tract infection) Surgical History History of hernia repair Presence of stent in coronary artery S/P drug eluting coronary stent placement S/P PTCA (percutaneous transluminal coronary angioplasty) Family History Denies family history of Ovarian cancer Prostate cancer Myocardial infarction Breast cancer Colorectal cancer Social History Smoking Status: Former smoker Tobacco Type: Cigarettes Hx Alcohol Use: No Hx Substance Use: No Preferred Language: Bengali Communication Ability: Impaired Communication Ability Comment: Forgetful Rn Vascular Required: No Beliefs That Will Affect Care: None marital status: Current Living Situation: [facility] Current Living Situation Comment: [facility] (for rehab per pt) current occupational status: employed and retired current occupation: [employer] Other Information That Helps Us Care for You: No Feels Safe at Home: Yes Safety Concerns: Feels Safe At This Time Dental Care, Regularly: No Physical Activity Frequency: Does not Exercise Assistive Devices: None Review of Systems Review of Systems: A complete 10 point review of systems was reviewed with the patient with pertinent positives and negatives as per history of present illness. All else were negative. Physical Exam Physical Exam: VITAL SIGNS - Vital signs and nursing notes were reviewed. GENERAL - 70-year-old male appearing his stated age who is in no acute distress. SKIN - Without rashes. HEAD - NC/AT. EYES - PERRL with EOMI bilaterally. Sclera anicteric. EARS - No deformities of external structures noted on gross examination bilaterally. NOSE - Midline and without cyanosis. No epistaxis or purulent drainage noted. MOUTH/OROPHARYNX - Without perioral cyanosis. Buccal mucosa pink and moist and without leukoplakia. NECK - Neck with FROM. Supple to palpation. LUNGS - Chest wall symmetric without accessory muscle use, intercostals retractions, or central cyanosis. Normal vesicular breath sounds CTA B/L. No wheezes, rales, or rhonchi appreciated. CARDIAC - RRR with S1/S2. No murmur, rubs, or gallops appreciated. ABDOMEN - Abdominal contour flat without pulsations or visible masses. BS normoactive all four quadrants. No tenderness, palpable masses, hepatosplenomegaly, or ascites noted. EXTREMITIES - Hemiparesis of the LEFT upper and lower extremities with contracture of the LEFT hand. No clubbing or peripheral cyanosis. No pretibial edema present. +3/5 radial pulses palpated throughout. NEUROLOGIC - KAT/LLE paralysis per history. No other focal neurological deficits appreciated. PSYCH - Awake and alert. Knows he is in the hospital and is not happy about it. Thinks he is at [place]. Knows the year and birthdate. Results & Data Results & Data ([facility]) Vital Signs (Past 12 Hours) Vital Signs Temp Pulse Pulse Resp BP BP Pulse Ox 12/06/20 18:13 52 L 15 112/37 L 100 12/06/20 17:12 55 L 15 96/49 L 100 12/06/20 16:07 55 L 14 98 12/06/20 15:04 36.4 C L 55 L 20 125/58 L 99 12/06/20 11:21 36.1 C L 56 L 17 115/60 92 12/06/20 08:00 57 L Coding Level of Care Code Critical Care 1st 30-74 mins Diagnoses Admitted to intensive care unit Z78.9 Hypoxia R09.02 Aspiration pneumonia J69.0 History of CVA (cerebrovascular accident) Z86.73 Atrial fibrillation I48.91 GIB (gastrointestinal bleeding) K62.5 GI bleed type/associated pathology: anorectal hemorrhage Chronic anticoagulation Z79.01 Rectal bleeding K62.5 Time Spent (min) 32 (1) GIB (gastrointestinal bleeding) GI bleed type/associated pathology: anorectal hemorrhage Qualified Code(s): K62.5 - Hemorrhage of anus and rectum
[2020-12-07] MEDS ORDERED: ICU PROTOCOL FOR HYPERGLYCEMIA PRN (00:36)
[2020-12-07] MEDS: AMPICILLIN/SULBACTAM SOD 3,000 MG in 0.9 % SODIUM CHLORIDE 100 ML IV SCH ×4 (01:25→19:59)
[2020-12-07 05:13] LABS: Basophils # (auto) 0.03 K/uL (0-0.2); Basophils % (auto) 0.6 %; Eosinophils # (auto) 0.36 K/uL (0-0.5); Eosinophils % (auto) 7.4 %; Hematocrit (blood only) 26.5 % (42-52); Hemoglobin 8.7 g/dL (14.0-18.0); Immature Granulocytes # (auto) 0.01 K/uL (0.00-0.02); Immature Granulocytes % (auto) 0.2 %; Lymphocytes # (auto) 0.99 K/uL (1.2-3.4); Lymphocytes % (auto) 20.4 %; Mean Corpuscular Hemoglobin 29.7 pg (25-34); Mean Corpuscular Hgb Conc 32.8 g/dL (32-36); Mean Corpuscular Volume 90.4 fL (80-100); Mean Platelet Volume 9.8 fL (7.4-10.4); Monocytes # (auto) 0.41 K/uL (0.11-0.59); Monocytes % (auto) 8.4 %; Neutrophils # (auto) 3.06 K/uL (1.4-6.5); Platelet Count 222 K/uL (130-400); RDW Coefficient of Variation 14.2 % (11.5-14.5); RDW Standard Deviation 46.9 fL (36.4-46.3); Red Blood Count 2.93 M/uL (4.7-6.1); White Blood Count 4.86 K/uL (4.8-10.8)
[2020-12-07 05:27] LABS: BUN Creatinine Ratio 25.4 (10-20); Calcium 8.4 mg/dl (8.5-10.1); Creatinine Clr Calc Pharmacy 102.1 ml/min; Est GFR (African American) 105.6 ml/min; Est GFR (Non-African American) 91.1 ml/min; Magnesium 2.2 mg/dl (1.8-2.4); Potassium 4.1 mmol/L (3.5-5.1)
[2020-12-07 05:28] LABS: Phosphorus 2.7 mg/dl (2.5-4.9)
--- NOTE | 2020-12-07 08:20 | Critical Care Progress Note ---
Date of Service December 07, 2020 Assessment & Plan (1) Admitted to intensive care unit: Plan: Reason Critically Ill: 70-year-old male with acute hypoxic event with concern for possible seizure-like activity versus somnolence with secondary effects from generalized hypoxia requiring close monitoring status post event. NEURO - * CAM ICU: negative * Altered mental status: * Appears to have resolved. * Question if related to degree of hypoxia. * CT/CTA unchanged from prior. * Patient reportedly back to baseline at this time. * EEG pending * History of CVA: * Persistent LEFT-sided hemiparesis and memory dysfunction. CARDIAC/VASCULAR - * Hypertension, hyperlipidemia, coronary artery disease, A. fib: * Continue home Rx as tolerated. * Monitor on telemetry. -Reviewed hospitalist note from December 05, 2020 will restart Eliquis as there was no overt sign of bleeding RESPIRATORY - * Acute hypoxia: Resolved saturating 93% on room air while eating * Likely secondary to aspiration event. * CT chest concerning for infiltrative changes likely related to aspiration. * Will cover with Unasyn with transition to Augmentin pending patient's improvement. * Ongoing pulmonary toilet. GI/NUTRITION - * Lower GIB: * s/p colonoscopy. * Received 5U PRBCs. * Continue Tx per GI Reccs. * AHA diet RENAL/LYTES - * No significant electrolyte derangements. * IVF: - * h/o BPH ENDO - * No h/o DM or thyroid dz. * BSGs per unit protocol. ISS --> gtt per unit policy. HEME - * Anemia: * Appears to have plateaued. * Received 5 total units PRBCs. * Concerning as patient on DOAC 2/2 A. fib. -Reviewed December 05 hospitalist notes which discussed antic oagulation -Patient at high risk for major bleeding however defer to cardiology opinions regarding anticoagulation ID - * Aspiration pneumonitis: * No white count, no fevers, no oxygen requirement will discontinue antibiotics LINES/IV ACCESS - * PIVs x2 DVT PROPHYLAXIS - * Eliquis * SCDs Patient stable for downgrade out of ICU, critical care will sign off. (2) Hypoxia: (3) Aspiration pneumonia: (4) History of CVA (cerebrovascular accident): (5) Atrial fibrillation: (6) GIB (gastrointestinal bleeding): (7) Chronic anticoagulation: (8) Rectal bleeding: Admission and Anticipated Discharge Date Admission Date: November 29, 2020 Subjective No overnight events eating breakfast this morning Physical Exam Physical Exam: General: Alert. nontoxic. Skin: Warm, dry, Head: Atraumatic Ears, nose, mouth and throat: airway patent Cardiovascular: Normal peripheral perfusion Respiratory: no respiratory distress Gastrointestinal: Non distended Musculoskeletal: No deformity Results & Data Results & Data ([facility]) Vital Signs (Past 12 Hours) Vital Signs Temp Pulse Resp BP Pulse Ox 12/07/20 08:01 60 12/07/20 07:12 55 L 16 154/57 H 95 12/07/20 06:12 55 L 149/57 H 93 12/07/20 05:12 36.8 C 49 L 20 151/58 H 93 12/07/20 04:11 36.7 C 54 L 20 143/51 H 91 12/07/20 03:12 36.7 C 54 L 24 148/60 H 91 12/07/20 02:12 36.7 C 54 L 21 151/62 H 91 12/07/20 01:11 36.7 C 55 L 19 130/45 L 91 12/07/20 00:36 49 L 12/07/20 00:12 36.6 C 56 L 17 151/41 H 83 L 12/06/20 23:00 36.6 C 55 L 15 139/32 L 88 L 12/06/20 21:12 36.6 C 55 L 113/47 L 94 Laboratory Results 12/07/20 12/07/20 12/07/20 Range/Units 04:26 04:26 04:26 WBC 4.86 (4.8-10.8) K/uL RBC 2.93 L (4.7-6.1) M/uL Hgb 8.7 L (14.0-18.0) g/dL Hct 26.5 L (42-52) % MCV 90.4 (80-100) fL MCH 29.7 (25-34) pg MCHC 32.8 (32-36) g/dL RDW Std Deviation 46.9 H (36.4-46.3) fL RDW Coeff of Markell 14.2 (11.5-14.5) % Plt Count 222 (130-400) K/uL MPV 9.8 (7.4-10.4) fL Immature Gran % (Auto) 0.2 % Neut % (Auto) 63.0 % Lymph % (Auto) 20.4 % [place] % (Auto) 8.4 % Eos % (Auto) 7.4 % Baso % (Auto) 0.6 % Neut # (Auto) 3.06 (1.4-6.5) K/uL Lymph # (Auto) 0.99 L (1.2-3.4) K/uL [place] # (Auto) 0.41 (0.11-0.59) K/uL Eos # (Auto) 0.36 (0-0.5) K/uL Baso # (Auto) 0.03 (0-0.2) K/uL Immature Gran # (Auto) 0.01 (0.00-0.02) K/uL Sample Site POC pH (7.35-7.45) POC pCO2 (35-46) mmHg POC pO2 (80-95) mmHg POC HCO3 (19-24) harpal/L POC Total CO2 (24-31) mmol/L POC Base Excess (-9-1.8) harpal/L POC ABG O2 Sat (90-95) % Roddy Test Sodium 141 (136-145) mmol/L Potassium 4.1 (3.5-5.1) mmol/L Chloride 112 H (98-107) mmol/L Carbon Dioxide 28 (21-32) mmol/L Anion Gap 1.0 L (3-11) BUN 19 H (7-18) mg/dl Creatinine 0.76 (0.6-1.4) mg/dl Est Cr Clr Drug Dosing 102.1 ml/min Est GFR ( Amer) 105.6 ml/min Est GFR (Non-Af Amer) 91.1 ml/min BUN/Creatinine Ratio 25.4 H (10-20) Glucose 86 (70-99) mg/dl POC Glucose (70-99) mg/dl Calcium 8.4 L (8.5-10.1) mg/dl Phosphorus 2.7 (2.5-4.9) mg/dl Magnesium 2.2 (1.8-2.4) mg/dl Total Bilirubin (0.2-1) mg/dl AST (15-37) U/L ALT (12-78) U/L Alkaline Phosphatase (45-117) U/L Total Protein (6.4-8.2) gm/dl Albumin (3.4-5.0) gm/dl Globulin (2.5-4.0) gm/dl Albumin/Globulin Ratio (0.9-2) Procalcitonin 0.10 (0-0.5) ng/ml Nasal Screen MRSA (PCR) (Negative) 12/07/20 12/06/20 12/06/20 Range/Units 01:40 16:21 16:18 WBC (4.8-10.8) K/uL RBC (4.7-6.1) M/uL Hgb (14.0-18.0) g/dL Hct (42-52) % MCV (80-100) fL MCH (25-34) pg MCHC (32-36) g/dL RDW Std Deviation (36.4-46.3) fL RDW Coeff of Markell (11.5-14.5) % Plt Count (130-400) K/uL MPV (7.4-10.4) fL Immature Gran % (Auto) % Neut % (Auto) % Lymph % (Auto) % [place] % (Auto) % Eos % (Auto) % Baso % (Auto) % Neut # (Auto) (1.4-6.5) K/uL Lymph # (Auto) (1.2-3.4) K/uL [place] # (Auto) (0.11-0.59) K/uL Eos # (Auto) (0-0.5) K/uL Baso # (Auto) (0-0.2) K/uL Immature Gran # (Auto) (0.00-0.02) K/uL Sample Site R Radial POC pH 7.44 (7.35-7.45) POC pCO2 31 L (35-46) mmHg POC pO2 61 L (80-95) mmHg POC HCO3 21 (19-24) harpal/L POC Total CO2 22 L (24-31) mmol/L POC Base Excess -3.0 (-9-1.8) harpal/L POC ABG O2 Sat 92.0 (90-95) % Roddy Test Pass Sodium 140 (136-145) mmol/L Potassium 4.1 (3.5-5.1) mmol/L Chloride 111 H (98-107) mmol/L Carbon Dioxide 23 (21-32) mmol/L Anion Gap 6.0 (3-11) BUN 20 H (7-18) mg/dl Creatinine 0.91 (0.6-1.4) mg/dl Est Cr Clr Drug Dosing 85.3 ml/min Est GFR ( Amer) 97.2 ml/min Est GFR (Non-Af Amer) 83.9 ml/min BUN/Creatinine Ratio 21.6 H (10-20) Glucose 108 H (70-99) mg/dl POC Glucose (70-99) mg/dl Calcium 8.3 L (8.5-10.1) mg/dl Phosphorus (2.5-4.9) mg/dl Magnesium 2.2 (1.8-2.4) mg/dl Total Bilirubin 0.4 (0.2-1) mg/dl AST 14 L (15-37) U/L ALT 20 (12-78) U/L Alkaline Phosphatase 81 (45-117) U/L Total Protein 5.3 L (6.4-8.2) gm/dl Albumin 2.6 L (3.4-5.0) gm/dl Globulin 2.7 (2.5-4.0) gm/dl Albumin/Globulin Ratio 1.0 (0.9-2) Procalcitonin (0-0.5) ng/ml Nasal Screen MRSA (PCR) Negative (Negative) 12/06/20 12/06/20 Range/Units 16:18 15:16 WBC 4.89 (4.8-10.8) K/uL RBC 2.93 L (4.7-6.1) M/uL Hgb 8.7 L (14.0-18.0) g/dL Hct 26.5 L (42-52) % MCV 90.4 (80-100) fL MCH 29.7 (25-34) pg MCHC 32.8 (32-36) g/dL RDW Std Deviation 47.3 H (36.4-46.3) fL RDW Coeff of Markell 14.3 (11.5-14.5) % Plt Count 216 (130-400) K/uL MPV 9.7 (7.4-10.4) fL Immature Gran % (Auto) 0.2 % Neut % (Auto) 73.4 % Lymph % (Auto) 12.9 % [place] % (Auto) 5.9 % Eos % (Auto) 7.2 % Baso % (Auto) 0.4 % Neut # (Auto) 3.59 (1.4-6.5) K/uL Lymph # (Auto) 0.63 L (1.2-3.4) K/uL [place] # (Auto) 0.29 (0.11-0.59) K/uL Eos # (Auto) 0.35 (0-0.5) K/uL Baso # (Auto) 0.02 (0-0.2) K/uL Immature Gran # (Auto) 0.01 (0.00-0.02) K/uL Sample Site POC pH (7.35-7.45) POC pCO2 (35-46) mmHg POC pO2 (80-95) mmHg POC HCO3 (19-24) harpal/L POC Total CO2 (24-31) mmol/L POC Base Excess (-9-1.8) harpal/L POC ABG O2 Sat (90-95) % Roddy Test Sodium (136-145) mmol/L Potassium (3.5-5.1) mmol/L Chloride (98-107) mmol/L Carbon Dioxide (21-32) mmol/L Anion Gap (3-11) BUN (7-18) mg/dl Creatinine (0.6-1.4) mg/dl Est Cr Clr Drug Dosing ml/min Est GFR ( Amer) ml/min Est GFR (Non-Af Amer) ml/min BUN/Creatinine Ratio (10-20) Glucose (70-99) mg/dl POC Glucose 133 H (70-99) mg/dl Calcium (8.5-10.1) mg/dl Phosphorus (2.5-4.9) mg/dl Magnesium (1.8-2.4) mg/dl Total Bilirubin (0.2-1) mg/dl AST (15-37) U/L ALT (12-78) U/L Alkaline Phosphatase (45-117) U/L Total Protein (6.4-8.2) gm/dl Albumin (3.4-5.0) gm/dl Globulin (2.5-4.0) gm/dl Albumin/Globulin Ratio (0.9-2) Procalcitonin (0-0.5) ng/ml Nasal Screen MRSA (PCR) (Negative) Coding Level of Care Code 53362 Subseq Hosp Care Lvl 3 Diagnoses Admitted to intensive care unit Z78.9 Hypoxia R09.02 Aspiration pneumonia J69.0 History of CVA (cerebrovascular accident) Z86.73 Atrial fibrillation I48.91 GIB (gastrointestinal bleeding) K62.5 GI bleed type/associated pathology: anorectal hemorrhage Chronic anticoagulation Z79.01 Rectal bleeding K62.5 (1) GIB (gastrointestinal bleeding) GI bleed type/associated pathology: anorectal hemorrhage Qualified Code(s): K62.5 - Hemorrhage of anus and rectum
[2020-12-07] MEDS ORDERED: APIXABAN 5 MG TABLET PO SCH (09:00)
[2020-12-07] MEDS: CHLORHEXIDINE GLUCONATE 0.12% 480 ML MT SCH ×3 (09:16→17:17)
[2020-12-07] MEDS: rOPINIRole HCL 0.25 MG TABLET PO SCH ×4 (09:16→20:16)
[2020-12-07] MEDS: ACETAMINOPHEN 500 MG TAB PO SCH ×4 (09:17→20:15)
[2020-12-07] MEDS: ATORVASTATIN 40 MG TAB PO SCH (09:18)
[2020-12-07] MEDS: APIXABAN 5 MG TABLET PO SCH ×3 (09:18→22:46)
[2020-12-07] MEDS: AMIODARONE 200 MG TAB PO SCH (09:18)
[2020-12-07] MEDS: FINASTERIDE 5 MG TAB PO SCH (09:19)
[2020-12-07] MEDS: FLUoxetine HCL 20 MG CAP PO SCH (09:19)
[2020-12-07] MEDS: MULTIVITAMIN TAB PO SCH (09:20)
[2020-12-07] MEDS: GABAPENTIN 100 MG CAP PO SCH ×3 (09:20→20:16)
[2020-12-07] MEDS: lisinopril 2.5 MG TAB PO SCH (09:20)
[2020-12-07] MEDS: METOPROLOL TARTRATE 25 MG TAB PO SCH (09:20)
[2020-12-07] MEDS: POT PHOSPHATE MONOBASIC W/ SOD TAB PO SCH ×4 (09:21→21:09)
[2020-12-07] MEDS: PANTOprazole 40 MG TAB PO SCH (09:21)
[2020-12-07] MEDS: POLYETHYLENE (MIRALAX) 17 GM PACK PO SCH (09:22)
[2020-12-07] MEDS: POTASSIUM CHLORIDE CRTAB 20 MEQ TABCR PO SCH (09:22)
--- NOTE | 2020-12-07 09:48 | XRay Report ---
XR chest 1V portable HISTORY: Shortness of breath. aspiration COMPARISON: Chest CT 12/06/2020. FINDINGS: Emphysema. Left mid to lower lung zone airspace opacity is again noted. No pneumothorax. Tr antoine left pleural effusion, unchanged. The heart remains mildly enlarged. IMPRESSION: Left lower lobe airspace opacity, unchanged. This favors a pneumonia. ACT 112: Negative or not required by law. Electronically signed by: Raudel Gayle M.D. 12/07/2020 9:47 AM
--- NOTE | 2020-12-07 11:25 | Consultation Report ---
NEUROLOGY CONSULTATION NOTE DATE OF CONSULTATION: 12/07/2020 CHIEF COMPLAINT: Altered mental status/unresponsiveness. HISTORY OF PRESENT ILLNESS: A 70-year-old male admitted to the hospital on 11/29/2020 for a GI bleed. He has a history of chronic atrial fibrillation, is on anticoagulation, which was held upon admission. The patient had received 5 units of packed red blood cells and underwent colonoscopy as well as an EGD. He was found to have internal hemorrhoids, mild diverticulosis in the sigmoid colon, and a single ulcer in the mid rectum. A clip was placed. Aspirin was discontinued. For his atrial fibrillation, metoprolol and amiodarone were continued and he was restarted on Eliquis. Of note, the patient does have a history of a stroke with chronic left-sided hemiplegia, dysarthria. Yesterday around 3:00 p.m., the patient underwent a code purple for an unresponsive episode. A stroke alert was subsequently called. The differential included a seizure versus hypoxia. A stat CT head noncontrast was performed and showed no change in appearance of the brain, there was no acute hemorrhage or acute stroke. There was an old large right MCA territory infarct. He underwent CTA head and neck imaging, which showed the old right MCA territory infarct, a recanalized right middle cerebral artery. He had moderate plaque noted within the intracranial vessels. CTA of the neck was stable and showed no aneurysm. MRI of the brain was ordered as well as an EEG and neurology was consulted for further evaluation. ALLERGIES: No known allergies. HOME MEDICATIONS: Tylenol, amiodarone, Eliquis, aspirin, atorvastatin, clopidogrel, Colace, fluoxetine, gabapentin, polyethylene glycol, ropinirole, tamsulosin, lisinopril. PAST MEDICAL HISTORY: Benign prostatic hyperplasia, bladder calculi, BPH, coronary artery disease, COPD, hematuria, hypertension, hypercholesterolemia, urinary tract infection, right MCA ischemic stroke, atrial fibrillation, GI bleed. PAST SURGICAL HISTORY: Hernia repair, drug-eluting coronary artery stent, percutaneous transluminal coronary angioplasty, EGD, colonoscopy. FAMILY HISTORY: No family history of ovarian cancer or prostate cancer. No history of myocardial infarction, breast cancer, or colorectal cancer. SOCIAL HISTORY: He is a former smoker. 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 No illicit drug use. He lives at [facility] for rehab. REVIEW OF SYSTEMS: All other review of systems was negative except as noted above in the HPI. PHYSICAL EXAMINATION: VITAL SIGNS: Blood pressure 154/57, pulse is 60, respiratory rate 16, temperature 36.8 degrees Celsius, oxygen saturation 95% on room air. GENERAL: The patient appears chronically ill, in no distress. HEENT: His head is atraumatic and normocephalic. He has normal conjunctivae. Eyes are midline. NECK: Supple. RESPIRATORY: He has normal respiratory effort. CARDIAC: Pulses are normal. ABDOMEN: Nondistended. SKIN: He has no skin rash. PSYCHIATRIC: He has normal mood and normal affect. NEUROLOGIC: In no acute distress. He is awake and alert. His attention is decreased. No aphasia. Mild dysarthria. No visual defect on confrontation. Pupils are equal. Extraocular muscles are intact. Facial sensation is intact. Left facial droop. Intact hearing. Palate is symmetric. Good shoulder shrug. Tongue is midline. Unable to ambulate. No tremor.. Sensation is intact to light touch. Muscle examination shows left hemiparesis with left upper extremity contractures. DIAGNOSTIC TESTING AND LABORATORY VALUES: WBC 4.86, RBC 2.93, hemoglobin 8.7, platelet count is 222. INR is 1.0. Sodium is 141, potassium is 4.1, chloride is 112, carbon dioxide is 28, BUN is 19, creatinine is 0.76, glucose is 86, calcium is 8.4, AST is 14, ALT is 20. Procalcitonin is 0.10. Urinalysis is cloudy, 1+ protein, trace ketones, 1+ blood, 1+ leukocyte esterase, greater than [address] of the head showed no acute hemorrhage, midline shift, or mass effect. Extensive encephalomalacia within the right middle cerebral artery territory; this is unchanged. Head and neck CTA showed no acute central vessel occlusion. No intracranial aneurysm. Old large right MCA territory infarct, recanalized right middle cerebral artery since the CTA in 11/2019, moderate plaque within the intracranial vessels. Mild stenosis of the left cavernous carotid. Stable examination of the arteries of the neck compared to 12/06/2019 without aneurysm, dissection or high-grade stenosis. Severe emphysema, layering left pleural effusion. ASSESSMENT AND PLAN: A 70-year-old male with multiple medical comorbidities including a prior large right middle cerebral artery ischemic stroke with residual left hemiparesis and dysarthria as well as known atrial fibrillation, on Eliquis, and coronary artery disease, previously on aspirin and Plavix, admitted with an acute gastrointestinal bleed requiring EGD and colonoscopy with blood transfusion. Noted to have a brief episode of unresponsiveness yesterday that largely remains unclear in etiology, possible hypoactive delirium. Differential diagnosis certainly includes a seizure, although symptomatic seizures due to a stroke often generalized into a full general tonic-clonic seizure. There was no witnessed generalized tonic-clonic seizure per chart review. I do believe seizure is less likely. EEG without epileptiform discharges. Otherwise, can continue to monitor while inpatient. No additional neurological workup is necessary. Please contact me with any additional questions or concerns. Job ID: [id number] [facility]
--- NOTE | 2020-12-07 11:45 | Fluoroscopy Report ---
FL video swallow HISTORY: r/o aspiration TECHNIQUE: Video fluoroscopic evaluation of swallowing was performed in the AP and lateral projection s by the speech pathology staff. The patient is fed nectar-thick and thin liquid barium, a barium coa mara wafer, and barium pudding. FLUOROSCOPY TIME: 1.5 minutes. A cine loop submitted.. COMPARISON STUDY: None. FINDINGS: There is normal hyoid excursion and epiglottic deflection. No significant penetration or as piration identified. Swallowing function is within normal limits. IMPRESSION: 1. No aspiration identified. 2. Please see the speech pathologist report for detailed findings and recommendations. ACT 112: Negative or not required by law. Electronically signed by: Raudel Gayle M.D. 12/07/2020 11:44 AM
--- NOTE | 2020-12-07 12:25 | Cardiology Progress Note ---
Date of Service December 07, 2020 Assessment & Plan (1) CAD (coronary artery disease): Plan: -originally had an LAD stent in 2003. -had an acute occlusion of the stent in November 2019. -3.5 x 22 mm GEORGIE overlapping prior stent, November 2019. -continue metoprolol tartrate and lisinopril. -would restart clopidogrel when able. -would not use aspirin (rectal ulcer). (2) Atrial fibrillation: Plan: -in sinus rhythm on amiodarone therapy. -Eliquis restarted as no occult blood in stool. (3) HTN (hypertension): Plan: -adequate control on current regimen. (4) Hypercholesterolemia: Plan: -continue atorvastatin. (5) Rectal bleeding: Plan: -stool negative for occult blood. -Eliquis restarted. -would favor clopidogrel over aspirin. Admission and Anticipated Discharge Date Admission Date: November 29, 2020 Subjective The patient is resting comfortably in bed without complaints of chest pain, dyspnea, or palpitations. Events of yesterday afternoon reviewed in detail. Physical Exam Physical Exam: In general is well-developed well-nourished white male lying supine in bed without complaints. HEENT exam is negative except for poor dentition. Neck is supple with full carotid upstrokes. No carotid bruits. Jugular venous pressure is flat at 90. Cardiovascular exam reveals regular rhythm with normal S1-S2. Heart sounds are distant. No obvious murmurs. Lungs are clear without rales, rhonchi or wheeze rib abdomen is soft without bruits. Extremities reveal intact radial artery pulses bilaterally. There is no peripheral edema. Results & Data ([facility]) Vital Signs (Past 12 Hours) Vital Signs Temp Pulse Resp BP Pulse Ox 12/07/20 11:19 55 L 16 152/58 H 96 12/07/20 10:11 56 L 16 152/68 H 12/07/20 09:11 58 L 15 131/82 94 12/07/20 08:12 70 18 107/76 92 12/07/20 08:01 60 12/07/20 07:12 55 L 16 154/57 H 95 12/07/20 06:12 55 L 149/57 H 93 12/07/20 05:12 36.8 C 49 L 20 151/58 H 93 12/07/20 04:11 36.7 C 54 L 20 143/51 H 91 12/07/20 03:12 36.7 C 54 L 24 148/60 H 12/07/20 02:12 36.7 C 54 L 21 151/62 H 12/07/20 01:11 36.7 C 55 L 19 130/45 L 12/07/20 00:36 49 L PG Care Time/CCT Total # of Minutes Spent Total Time Spent with Patient: Total time spent is greater than 50% in coordination of care (as documented) at patient's floor/unit and/or counseling patient: Coding Level of Care Code 07887 Subseq Hosp Care Lvl 3 Diagnoses CAD (coronary artery disease) I25.10 Coronary Disease-Associated Artery/Lesion type: [place] artery [place] vs. transplanted heart: [place] heart Associated angina: without angina Atrial fibrillation I48.91 HTN (hypertension) I10 Hypertension type: essential hypertension Hypercholesterolemia E78.00 Rectal bleeding K62.5 (1) CAD (coronary artery disease) Coronary Disease-Associated Artery/Lesion type: [place] artery [place] vs. transplanted heart: [place] heart Associated angina: without angina Qualified Code(s): I25.10 - Atherosclerotic heart disease of [place] coronary artery without angina pectoris (2) HTN (hypertension) Hypertension type: essential hypertension Qualified Code(s): I10 - Essential (primary) hypertension
--- NOTE | 2020-12-07 13:22 | Electroencephalogram ---
EEG Procedure Note Date of Service December 07, 2020 Start / End Times Start Time: 10:19 End Time: 10:39 Referring Physician Rafita Deshpande History A 70 year old male with Hx of a right MCA stroke and recent unresponsive episode. Home Medication List Medication Instructions Recorded Confirmed Type multivitamin (Daily Multi-Vitamin) 1 tab PO QAM 11/03/18 11/28/20 History acetaminophen 325 mg tablet 325 mg PO Q4H PRN 09/15/20 11/28/20 History (Tylenol) acetaminophen 500 mg tablet 500 mg PO QID 09/15/20 11/28/20 History (Acetaminophen Extra Strength) amiodarone 200 mg tablet (Pacerone) 200 mg PO QAM 09/15/20 11/28/20 History apixaban 5 mg tablet (Eliquis) 5 mg PO BID 09/15/20 11/28/20 History aspirin 81 mg tablet,delayed 81 mg PO QAM 09/15/20 11/28/20 History release (Aspirin Low Dose) atorvastatin 80 mg tablet (Lipitor) 80 mg PO QAM 09/15/20 11/28/20 History chlorhexidine gluconate 0.12 % 1 applic PO TID 09/15/20 11/28/20 History mouthwash (Peridex) cholecalciferol (vitamin D3) 25 25 mcg PO QAM 09/15/20 11/28/20 History mcg (1,000 unit) capsule (Vitamin D3) clopidogrel 75 mg tablet (Plavix) 75 mg PO QAM 09/15/20 11/28/20 History docusate sodium 100 mg capsule 100 mg PO BID 09/15/20 11/28/20 History (Colace) finasteride 5 mg tablet (Proscar) 5 mg PO QAM 09/15/20 11/28/20 History fluoxetine 20 mg capsule (Prozac) 20 mg PO QAM 09/15/20 11/28/20 History gabapentin 100 mg capsule 100 mg PO TID 09/15/20 11/28/20 History (Neurontin) metoprolol tartrate 25 mg tablet 12.5 mg PO QAM 09/15/20 11/28/20 History polyethylene glycol 3350 17 17 g PO TUTHSA 09/15/20 11/28/20 History gram/dose oral powder (Miralax) ropinirole 0.5 mg tablet 0.5 mg PO QID 09/15/20 11/28/20 History tamsulosin 0.4 mg capsule (Flomax) 0.4 mg PO QDD 09/15/20 11/28/20 History calcium carbonate 200 mg calcium 500 mg PO BID 11/28/20 11/28/20 History (500 mg) chewable tablet (Calcium Antacid) lisinopril 5 mg tablet (Zestril) 5 mg PO QAM 11/28/20 11/28/20 History Inpatient Medication List Acetaminophen (Acetaminophen 500 Mg Tab) 500 mg PO QID [facility] Stop: 12/28/20 16:59 Last Admin: 12/07/20 09:17 Dose: 500 mg Documented by: [id number] Admin: 12/06/20 21:12 Dose: 500 mg Documented by: [id number] Admin: 12/06/20 18:00 Dose: 500 mg Documented by: [id number] Admin: 12/06/20 13:21 Dose: 500 mg Documented by: [id number] Admin: 12/06/20 08:26 Dose: 500 mg Documented by: [id number] Admin: 12/05/20 20:43 Dose: 500 mg Documented by: [id number] Admin: 12/05/20 17:35 Dose: 500 mg Documented by: [id number] Admin: 12/05/20 13:45 Dose: 500 mg Documented by: [id number] Admin: 12/05/20 10:15 Dose: 500 mg Documented by: [id number] Admin: 12/04/20 20:35 Dose: 500 mg Documented by: [id number] Admin: 12/04/20 17:06 Dose: 500 mg Documented by: [id number] Admin: 12/04/20 14:16 Dose: 500 mg Documented by: [id number] Admin: 12/04/20 09:13 Dose: 500 mg Documented by: [id number] Admin: 12/03/20 21:09 Dose: 500 mg Documented by: [id number] Admin: 12/03/20 16:57 Dose: 500 mg Documented by: [id number] Admin: 12/03/20 12:59 Dose: 500 mg Documented by: [id number] Admin: 12/03/20 08:36 Dose: 500 mg Documented by: [id number] Admin: 12/02/20 20:21 Dose: 500 mg Documented by: [id number] Admin: 12/02/20 16:50 Dose: 500 mg Documented by: [id number] Admin: 12/02/20 12:07 Dose: 500 mg Documented by: [id number] Admin: 12/02/20 08:53 Dose: 500 mg Documented by: [id number] Admin: 12/01/20 22:07 Dose: 500 mg Documented by: [id number] Admin: 12/01/20 16:53 Dose: 500 mg Documented by: [id number] Admin: 12/01/20 13:15 Dose: 500 mg Documented by: [id number] Admin: 12/01/20 09:00 Dose: 500 mg Documented by: [id number] Admin: 11/30/20 21:24 Dose: 500 mg Documented by: [id number] Admin: 11/30/20 17:56 Dose: Not Given Documented by: [id number] Admin: 11/30/20 13:02 Dose: Not Given Documented by: [id number] Admin: 11/30/20 09:22 Dose: Not Given Documented by: [id number] Admin: 11/29/20 22:04 Dose: 500 mg Documented by: [id number] Admin: 11/29/20 15:49 Dose: 500 mg Documented by: [id number] Admin: 11/29/20 15:47 Dose: Not Given Documented by: [id number] Admin: 11/29/20 15:15 Dose: Not Given Documented by: [id number] Admin: 11/28/20 20:43 Dose: 500 mg Documented by: [id number] Admin: 11/28/20 17:36 Dose: 500 mg Documented by: [id number] Amiodarone HCl (Amiodarone 200 Mg Tab) [address] [facility] Stop: 12/29/20 08:59 Last Admin: 12/07/20 09:18 Dose: 200 mg Documented by: [id number] Admin: 12/06/20 08:24 Dose: 200 mg Documented by: [id number] Admin: 12/05/20 10:14 Dose: 200 mg Documented by: [id number] Admin: 12/04/20 09:13 Dose: 200 mg Documented by: [id number] Admin: 12/03/20 08:36 Dose: 200 mg Documented by: [id number] Admin: 12/02/20 08:56 Dose: 200 mg Documented by: [id number] Admin: 12/01/20 09:00 Dose: 200 mg Documented by: [id number] Admin: 11/30/20 09:22 Dose: Not Given Documented by: [id number] Admin: 11/29/20 15:47 Dose: Not Given Documented by: [id number] Apixaban (Apixaban 5 Mg Tablet) 5 mg PO BID [facility] Stop: 01/04/21 08:59 Last Admin: 12/07/20 09:18 Dose: 5 mg Documented by: [id number] Admin: 12/06/20 21:16 Dose: 5 mg Documented by: [id number] Admin: 12/06/20 08:26 Dose: 5 mg Documented by: [id number] Admin: 12/05/20 20:43 Dose: 5 mg Documented by: [id number] Admin: 12/05/20 10:32 Dose: 5 mg Documented by: [id number] Atorvastatin Calcium (Atorvastatin 40 Mg Tab) 80 mg PO QAM [facility] Stop: 12/29/20 08:59 Last Admin: 12/07/20 09:18 Dose: 80 mg Documented by: [id number] Admin: 12/06/20 08:23 Dose: 80 mg Documented by: [id number] Admin: 12/05/20 10:15 Dose: 80 mg Documented by: [id number] Admin: 12/04/20 09:13 Dose: 80 mg Documented by: [id number] Admin: 12/03/20 08:36 Dose: 80 mg Documented by: [id number] Admin: 12/02/20 08:54 Dose: 80 mg Documented by: [id number] Admin: 12/01/20 09:00 Dose: 80 mg Documented by: [id number] Admin: 11/30/20 09:22 Dose: Not Given Documented by: [id number] Admin: 11/29/20 15:16 Dose: Not Given Documented by: [id number] Chlorhexidine Gluconate (Chlorhexidine Gluconate 0.12% 480 Ml) 15 ml MT TID@0901,1301,1701 [facility] Stop: 12/28/20 14:30 Last Admin: 12/07/20 09:16 Dose: 15 ml Documented by: [id number] Admin: 12/06/20 17:56 Dose: 15 ml Documented by: [id number] Admin: 12/06/20 13:22 Dose: 15 ml Documented by: [id number] Admin: 12/06/20 08:27 Dose: 15 ml Documented by: [id number] Admin: 12/05/20 17:34 Dose: 15 ml Documented by: [id number] Admin: 12/05/20 13:45 Dose: 15 ml Documented by: [id number] Admin: 12/05/20 10:17 Dose: 15 ml Documented by: [id number] Admin: 12/04/20 17:04 Dose: Not Given Documented by: [id number] Admin: 12/04/20 13:18 Dose: 15 ml Documented by: [id number] Admin: 12/04/20 09:12 Dose: 15 ml Documented by: [id number] Admin: 12/03/20 16:57 Dose: 15 ml Documented by: [id number] Admin: 12/03/20 12:59 Dose: 15 ml Documented by: [id number] Admin: 12/03/20 08:35 Dose: 15 ml Documented by: [id number] Admin: 12/02/20 16:49 Dose: 15 ml Documented by: [id number] Admin: 12/02/20 12:07 Dose: 15 ml Documented by: [id number] Admin: 12/02/20 08:53 Dose: 15 ml Documented by: [id number] Admin: 12/01/20 16:53 Dose: 15 ml Documented by: [id number] Admin: 12/01/20 13:18 Dose: 15 ml Documented by: [id number] Admin: 12/01/20 09:02 Dose: 15 ml Documented by: [id number] Admin: 11/30/20 17:56 Dose: Not Given Documented by: [id number] Admin: 11/30/20 13:02 Dose: Not Given Documented by: [id number] Admin: 11/30/20 09:04 Dose: 15 ml Documented by: [id number] Admin: 11/29/20 15:49 Dose: 15 ml Documented by: [id number] Admin: 11/29/20 15:47 Dose: Not Given Documented by: [id number] Admin: 11/29/20 15:17 Dose: Not Given Documented by: [id number] Admin: 11/28/20 17:35 Dose: 15 ml Documented by: [id number] Admin: 11/28/20 15:43 Dose: 15 ml Documented by: [id number] Finasteride (Finasteride 5 Mg Tab) [facility]: 12/29/20 08:59 Last Admin: 12/07/20 09:19 Dose: 5 mg Documented by: [id number] Admin: 12/06/20 08:24 Dose: 5 mg Documented by: [id number] Admin: 12/05/20 10:16 Dose: 5 mg Documented by: [id number] Admin: 12/04/20 09:13 Dose: 5 mg Documented by: [id number] Admin: 12/03/20 08:37 Dose: 5 mg Documented by: [id number] Admin: 12/02/20 08:55 Dose: 5 mg Documented by: [id number] Admin: 12/01/20 08:59 Dose: 5 mg Documented by: [id number] Admin: 11/30/20 09:22 Dose: Not Given Documented by: [id number] Admin: 11/29/20 15:16 Dose: Not Given Documented by: [id number] Fluoxetine HCl (Fluoxetine Hcl 20 Mg Cap) 20 mg PO QAM [facility] Stop: 12/29/20 08:59 Last Admin: 12/07/20 09:19 Dose: 20 mg Documented by: [id number] Admin: 12/06/20 08:24 Dose: 20 mg Documented by: [id number] Admin: 12/05/20 10:15 Dose: 20 mg Documented by: [id number] Admin: 12/04/20 09:12 Dose: 20 mg Documented by: [id number] Admin: 12/03/20 08:37 Dose: 20 mg Documented by: [id number] Admin: 12/02/20 08:57 Dose: 20 mg Documented by: [id number] Admin: 12/01/20 09:00 Dose: 20 mg Documented by: [id number] Admin: 11/30/20 09:22 Dose: Not Given Documented by: [id number] Admin: 11/29/20 15:16 Dose: Not Given Documented by: [id number] Gabapentin (Gabapentin 100 Mg Cap) 100 mg PO TID [facility] Stop: 12/28/20 14:34 Last Admin: 12/07/20 09:20 Dose: 100 mg Documented by: [id number] Admin: 12/06/20 21:16 Dose: 100 mg Documented by: [id number] Admin: 12/06/20 13:22 Dose: 100 mg Documented by: [id number] Admin: 12/06/20 08:26 Dose: 100 mg Documented by: [id number] Admin: 12/05/20 20:43 Dose: 100 mg Documented by: [id number] Admin: 12/05/20 13:44 Dose: 100 mg Documented by: [id number] Admin: 12/05/20 10:13 Dose: 100 mg Documented by: [id number] Admin: 12/04/20 20:36 Dose: 100 mg Documented by: [id number] Admin: 12/04/20 13:18 Dose: 100 mg Documented by: [id number] Admin: 12/04/20 09:12 Dose: 100 mg Documented by: [id number] Admin: 12/03/20 21:09 Dose: 100 mg Documented by: [id number] Admin: 12/03/20 14:20 Dose: 100 mg Documented by: [id number] Admin: 12/03/20 08:35 Dose: 100 mg Documented by: [id number] Admin: 12/02/20 20:22 Dose: 100 mg Documented by: [id number] Admin: 12/02/20 13:49 Dose: Not Given Documented by: [id number] Admin: 12/02/20 08:53 Dose: 100 mg Documented by: [id number] Admin: 12/01/20 22:07 Dose: 100 mg Documented by: [id number] Admin: 12/01/20 13:15 Dose: 100 mg Documented by: [id number] Admin: 12/01/20 08:59 Dose: 100 mg Documented by: [id number] Admin: 11/30/20 21:24 Dose: 100 mg Documented by: [id number] Admin: 11/30/20 14:37 Dose: Not Given Documented by: [id number] Admin: 11/30/20 09:22 Dose: Not Given Documented by: [id number] Admin: 11/29/20 22:05 Dose: 100 mg Documented by: [id number] Admin: 11/29/20 15:47 Dose: Not Given Documented by: [id number] Admin: 11/29/20 15:16 Dose: Not Given Documented by: [id number] Admin: 11/28/20 20:43 Dose: 100 mg Documented by: [id number] Admin: 11/28/20 15:44 Dose: 100 mg Documented by: [id number] Ampicillin Sodium/Sulbactam Sodium 3,000 mg/ Sodium Chloride 108 mls @ 200 mls/hr IV Q6H [facility]; Protocol Stop: 12/14/20 00:59 Last Infusion: 12/07/20 10:14 Dose: 0 mls/hr Documented by: [id number] Admin: 12/07/20 09:08 Dose: 200 mls/hr Documented by: [id number] Infusion: 12/07/20 02:26 Dose: 0 mls/hr Documented by: [id number] Admin: 12/07/20 01:25 Dose: 200 mls/hr Documented by: [id number] Lisinopril (Lisinopril 2.5 Mg Tab) [facility] [place] Stop: 01/01/21 08:59 Last Admin: 12/07/20 09:20 Dose: 2.5 mg Documented by: [id number] Admin: 12/06/20 08:23 Dose: 2.5 mg Documented by: [id number] Admin: 12/05/20 10:14 Dose: 2.5 mg Documented by: [id number] Admin: 12/04/20 09:12 Dose: 2.5 mg Documented by: [id number] Admin: 12/03/20 08:37 Dose: 2.5 mg Documented by: [id number] Admin: 12/02/20 08:59 Dose: 2.5 mg Documented by: [id number] Metoprolol Tartrate (Metoprolol Tartrate 25 Mg Tab) 12.[address] [facility] Stop: 12/29/20 08:59 Last Admin: 12/07/20 09:20 Dose: Not Given Documented by: [id number] Admin: 12/06/20 08:25 Dose: 12.5 mg Documented by: [id number] Admin: 12/05/20 10:16 Dose: 12.5 mg Documented by: [id number] Admin: 12/04/20 09:14 Dose: 12.5 mg Documented by: [id number] Admin: 12/03/20 08:36 Dose: 12.5 mg Documented by: [id number] Admin: 12/02/20 08:52 Dose: 12.5 mg Documented by: [id number] Admin: 12/01/20 08:59 Dose: 12.5 mg Documented by: [id number] Admin: 11/30/20 09:22 Dose: Not Given Documented by: [id number] Admin: 11/29/20 15:16 Dose: Not Given Documented by: [id number] Multivitamins (Multivitamin Tab) [facility] [place] Stop: 12/29/20 08:59 Last Admin: 12/07/20 09:20 Dose: 1 tab Documented by: [id number] Admin: 12/06/20 08:22 Dose: 1 tab Documented by: [id number] Admin: 12/05/20 10:15 Dose: 1 tab Documented by: [id number] Admin: 12/04/20 09:14 Dose: 1 tab Documented by: [id number] Admin: 12/03/20 08:36 Dose: 1 tab Documented by: [id number] Admin: 12/02/20 08:54 Dose: 1 tab Documented by: [id number] Admin: 12/01/20 09:00 Dose: 1 tab Documented by: [id number] Admin: 11/30/20 09:22 Dose: Not Given Documented by: [id number] Admin: 11/29/20 15:16 Dose: Not Given Documented by: [id number] Pantoprazole Sodium (Pantoprazole 40 Mg Tab) 40 mg PO QAM [facility] Stop: 12/31/20 08:59 Last Admin: 12/07/20 09:21 Dose: 40 mg Documented by: [id number] Admin: 12/06/20 08:24 Dose: 40 mg Documented by: [id number] Admin: 12/05/20 10:14 Dose: 40 mg Documented by: [id number] Admin: 12/04/20 09:13 Dose: 40 mg Documented by: [id number] Admin: 12/03/20 08:36 Dose: 40 mg Documented by: [id number] Admin: 12/02/20 08:55 Dose: 40 mg Documented by: [id number] Admin: 12/01/20 10:43 Dose: 40 mg Documented by: [id number] Polyethylene Glycol (Polyethylene (Miralax) 17 Gm Pack) 17 gm PO DAILY [facility] Stop: 12/31/20 08:59 Last Admin: 12/07/20 09:22 Dose: 17 gm Documented by: [id number] Admin: 12/06/20 08:27 Dose: Not Given Documented by: [id number] Admin: 12/05/20 10:17 Dose: 17 gm Documented by: [id number] Admin: 12/04/20 09:14 Dose: 17 gm Documented by: [id number] Admin: 12/03/20 08:38 Dose: Not Given Documented by: [id number] Admin: 12/02/20 08:55 Dose: 17 gm Documented by: [id number] Admin: 12/01/20 09:02 Dose: 17 gm Documented by: [id number] Potassium Chloride (Potassium Chloride Crtab 20 Meq Tabcr) 20 meq PO QAM [facility] Stop: 01/04/21 08:59 Last Admin: 12/07/20 09:22 Dose: 20 meq Documented by: [id number] Admin: 12/06/20 08:23 Dose: 20 meq Documented by: [id number] Admin: 12/05/20 10:14 Dose: 20 meq Documented by: [id number] Potassium Phosphate (Pot Phosphate Monobasic W/ Sod Tab) 1 tab PO QID [facility] Stop: 01/01/21 12:59 Last Admin: 12/07/20 09:21 Dose: 1 tab Documented by: [id number] Admin: 12/06/20 21:16 Dose: 1 tab Documented by: [id number] Admin: 12/06/20 17:56 Dose: 1 tab Documented by: [id number] Admin: 12/06/20 13:22 Dose: 1 tab Documented by: [id number] Admin: 12/06/20 08:25 Dose: 1 tab Documented by: [id number] Admin: 12/05/20 20:43 Dose: 1 tab Documented by: [id number] Admin: 12/05/20 17:34 Dose: 1 tab Documented by: [id number] Admin: 12/05/20 13:44 Dose: 1 tab Documented by: [id number] Admin: 12/05/20 10:15 Dose: 1 tab Documented by: [id number] Admin: 12/04/20 20:36 Dose: 1 tab Documented by: [id number] Admin: 12/04/20 17:06 Dose: 1 tab Documented by: [id number] Admin: 12/04/20 13:18 Dose: 1 tab Documented by: [id number] Admin: 12/04/20 09:14 Dose: 1 tab Documented by: [id number] Admin: 12/03/20 21:09 Dose: 1 tab Documented by: [id number] Admin: 12/03/20 16:57 Dose: 1 tab Documented by: [id number] Admin: 12/03/20 12:59 Dose: 1 tab Documented by: [id number] Admin: 12/03/20 08:36 Dose: 1 tab Documented by: [id number] Admin: 12/02/20 20:21 Dose: 1 tab Documented by: [id number] Admin: 12/02/20 16:50 Dose: 1 tab Documented by: [id number] Admin: 12/02/20 12:07 Dose: 1 tab Documented by: [id number] Ropinirole HCl (Ropinirole Hcl 0.25 Mg Tablet) 0.5 mg PO QID@0901,1301,1701,2101 [facility] Stop: 12/28/20 14:36 Last Admin: 12/07/20 09:16 Dose: 0.5 mg Documented by: [id number] Admin: 12/06/20 21:17 Dose: 0.5 mg Documented by: [id number] Admin: 12/06/20 17:57 Dose: 0.5 mg Documented by: [id number] Admin: 12/06/20 13:22 Dose: 0.5 mg Documented by: [id number] Admin: 12/06/20 08:22 Dose: 0.5 mg Documented by: [id number] Admin: 12/05/20 20:43 Dose: 0.5 mg Documented by: [id number] Admin: 12/05/20 17:36 Dose: 0.5 mg Documented by: [id number] Admin: 12/05/20 13:44 Dose: 0.5 mg Documented by: [id number] Admin: 12/05/20 10:13 Dose: 0.5 mg Documented by: [id number] Admin: 12/04/20 20:35 Dose: 0.5 mg Documented by: [id number] Admin: 12/04/20 17:06 Dose: 0.5 mg Documented by: [id number] Admin: 12/04/20 13:18 Dose: 0.5 mg Documented by: [id number] Admin: 12/04/20 09:13 Dose: 0.5 mg Documented by: [id number] Admin: 12/03/20 21:09 Dose: 0.5 mg Documented by: [id number] Admin: 12/03/20 16:58 Dose: 0.5 mg Documented by: [id number] Admin: 12/03/20 12:59 Dose: 0.5 mg Documented by: [id number] Admin: 12/03/20 08:37 Dose: 0.5 mg Documented by: [id number] Admin: 12/02/20 20:21 Dose: 0.5 mg Documented by: [id number] Admin: 12/02/20 16:51 Dose: 0.5 mg Documented by: [id number] Admin: 12/02/20 12:07 Dose: 0.5 mg Documented by: [id number] Admin: 12/02/20 08:56 Dose: 0.5 mg Documented by: [id number] Admin: 12/01/20 22:07 Dose: 0.5 mg Documented by: [id number] Admin: 12/01/20 16:53 Dose: 0.5 mg Documented by: [id number] Admin: 12/01/20 13:15 Dose: 0.5 mg Documented by: [id number] Admin: 12/01/20 08:59 Dose: 0.5 mg Documented by: [id number] Admin: 11/30/20 21:24 Dose: 0.5 mg Documented by: [id number] Admin: 11/30/20 17:56 Dose: Not Given Documented by: [id number] Admin: 11/30/20 13:02 Dose: Not Given Documented by: [id number] Admin: 11/30/20 09:22 Dose: Not Given Documented by: [id number] Admin: 11/29/20 22:05 Dose: 0.5 mg Documented by: [id number] Admin: 11/29/20 15:49 Dose: 0.5 mg Documented by: [id number] Admin: 11/29/20 15:47 Dose: Not Given Documented by: [id number] Admin: 11/29/20 15:17 Dose: Not Given Documented by: [id number] Admin: 11/28/20 20:42 Dose: 0.5 mg Documented by: [id number] Admin: 11/28/20 17:36 Dose: 0.5 mg Documented by: [id number] Admin: 11/28/20 15:44 Dose: 0.5 mg Documented by: [id number] Tamsulosin HCl (Tamsulosin Hcl 0.4 Mg Cap) 0.4 mg PO QDD [facility] Stop: 12/28/20 16:29 Last Admin: 12/06/20 17:55 Dose: 0.4 mg Documented by: [id number] Admin: 12/05/20 17:36 Dose: 0.4 mg Documented by: [id number] Admin: 12/04/20 17:06 Dose: 0.4 mg Documented by: [id number] Admin: 12/03/20 16:58 Dose: 0.4 mg Documented by: [id number] Admin: 12/02/20 16:50 Dose: 0.4 mg Documented by: [id number] Admin: 12/01/20 16:53 Dose: 0.4 mg Documented by: [id number] Admin: 11/30/20 17:55 Dose: Not Given Documented by: [id number] Admin: 11/29/20 15:51 Dose: 0.4 mg Documented by: [id number] Admin: 11/28/20 15:44 Dose: 0.4 mg Documented by: [id number] Discontinued Medications Bisacodyl (Bisacodyl 5 Mg Tabec) 20 mg PO NOW ONE Stop: 11/29/20 17:10 Last Admin: 11/29/20 17:53 Dose: 20 mg Documented by: [id number] Epinephrine HCl (Epinephrine 1.5" Ndl 0.1 Mg/Ml Syr) Confirm Administered Dose 1 mg IV .STK-MED ONE Stop: 11/30/20 17:30 Last Admin: 11/30/20 18:22 Dose: Not Given Documented by: [id number] Sodium Chloride (Nss) 500 mls @ 999 mls/hr IV .Q31M [facility] Stop: 11/28/20 09:00 Last Infusion: 11/28/20 12:06 Dose: 0 mls/hr Documented by: [id number] Admin: 11/28/20 10:15 Dose: 999 mls/hr Documented by: [id number] Pantoprazole Sodium 40 mg/ (Syringe) 10 mls @ 5 mls/min IV BID [facility] Stop: 12/28/20 11:44 Last Admin: 11/30/20 21:24 Dose: 5 mls/min Documented by: [id number] Admin: 11/30/20 09:02 Dose: 5 mls/min Documented by: [id number] Admin: 11/29/20 22:06 Dose: 5 mls/min Documented by: [id number] Admin: 11/29/20 08:17 Dose: 5 mls/min Documented by: [id number] Admin: 11/28/20 21:04 Dose: 5 mls/min Documented by: [id number] Admin: 11/28/20 12:57 Dose: 5 mls/min Documented by: [id number] Sodium Chloride (Nss 1000ml) 1,000 mls @ 125 mls/hr IV .Q8H [facility] Stop: 12/28/20 18:44 Last Infusion: 12/02/20 08:49 Dose: 0 mls/hr Documented by: [id number] Admin: 12/02/20 05:20 Dose: 125 mls/hr Documented by: [id number] Infusion: 12/02/20 05:20 Dose: 125 mls/hr Documented by: [id number] Admin: 12/01/20 22:07 Dose: 125 mls/hr Documented by: [id number] Infusion: 12/01/20 18:56 Dose: 125 mls/hr Documented by: [id number] Admin: 12/01/20 10:56 Dose: 125 mls/hr Documented by: [id number] Infusion: 12/01/20 10:56 Dose: 125 mls/hr Documented by: [id number] Admin: 12/01/20 03:06 Dose: 125 mls/hr Documented by: [id number] Infusion: 12/01/20 03:05 Dose: 0 mls/hr Documented by: [id number] Admin: 11/30/20 18:28 Dose: 125 mls/hr Documented by: [id number] Infusion: 11/30/20 18:28 Dose: 125 mls/hr Documented by: [id number] Admin: 11/30/20 10:39 Dose: Not Given Documented by: [id number] Admin: 11/30/20 10:36 Dose: 125 mls/hr Documented by: [id number] Infusion: 11/30/20 06:03 Dose: 125 mls/hr Documented by: [id number] Admin: 11/29/20 22:03 Dose: 125 mls/hr Documented by: [id number] Infusion: 11/29/20 22:03 Dose: 0 mls/hr Documented by: [id number] Infusion: 11/29/20 18:21 Dose: 0 mls/hr Documented by: [id number] Admin: 11/29/20 12:52 Dose: 125 mls/hr Documented by: [id number] Infusion: 11/29/20 12:52 Dose: 125 mls/hr Documented by: [id number] Infusion: 11/29/20 12:00 Dose: 125 mls/hr Documented by: [id number] Infusion: 11/29/20 10:45 Dose: 0 mls/hr Documented by: [id number] Infusion: 11/29/20 05:45 Dose: 125 mls/hr Documented by: [id number] Infusion: 11/29/20 05:33 Dose: 0 mls/hr Documented by: [id number] Admin: 11/29/20 03:25 Dose: 125 mls/hr Documented by: [id number] Infusion: 11/29/20 03:17 Dose: 125 mls/hr Documented by: [id number] Admin: 11/28/20 19:17 Dose: 125 mls/hr Documented by: [id number] Sodium Chloride (Nss) 500 mls @ 999 mls/hr IV .Q31M [facility] Stop: 12/28/20 18:44 Last Admin: 11/28/20 21:07 Dose: Not Given Documented by: [id number] Admin: 11/28/20 21:04 Dose: Not Given Documented by: [id number] Infusion: 11/28/20 20:26 Dose: 0 mls/hr Documented by: [id number] Admin: 11/28/20 18:45 Dose: 999 mls/hr Documented by: [id number] Furosemide 20 mg/ Syringe 2 mls @ 4 mls/min IV ONE ONE Stop: 11/29/20 03:01 Last Admin: 11/29/20 02:56 Dose: Not Given Documented by: [id number] Ceftriaxone Sodium 1,000 mg/ (Dextrose) 50 mls @ 100 mls/hr IV Q24H [facility]; Protocol Stop: 12/09/20 09:59 Last Infusion: 12/02/20 09:40 Dose: 0 mls/hr Documented by: [id number] Admin: 12/02/20 09:02 Dose: 100 mls/hr Documented by: [id number] Infusion: 12/01/20 11:54 Dose: 0 mls/hr Documented by: [id number] Admin: 12/01/20 10:57 Dose: 100 mls/hr Documented by: [id number] Infusion: 11/30/20 10:37 Dose: 0 mls/hr Documented by: [id number] Admin: 11/30/20 09:42 Dose: 100 mls/hr Documented by: [id number] Infusion: 11/29/20 09:45 Dose: 0 mls/hr Documented by: [id number] Admin: 11/29/20 09:15 Dose: 100 mls/hr Documented by: [id number] Furosemide 20 mg/ Syringe 2 mls @ 4 mls/min IV ONE ONE Stop: 11/30/20 02:31 Last Admin: 11/30/20 02:19 Dose: 4 mls/min Documented by: [id number] Potassium Chloride (K Frederick / Wtr) 10 meq in 100 mls @ 100 mls/hr IV Q1H [facility] Stop: 12/01/20 11:29 Last Infusion: 12/01/20 12:56 Dose: 0 mls/hr Documented by: [id number] Admin: 12/01/20 11:53 Dose: 100 mls/hr Documented by: [id number] Infusion: 12/01/20 11:43 Dose: 100 mls/hr Documented by: [id number] Admin: 12/01/20 10:43 Dose: 100 mls/hr Documented by: [id number] Ioversol (Optiray 320 125ml) 115 ml IV ONCE ONE Stop: 12/06/20 15:37 Last Admin: 12/06/20 15:37 Dose: 115 ml Documented by: [id number] Lidocaine HCl (Lidocaine 2% 2 Ml Vial/Amp(20mg/Ml)) Confirm Administered Dose 4 ml INFIL .STK-MED ONE Stop: 11/29/20 11:14 Last Admin: 11/29/20 15:47 Dose: Not Given Documented by: [id number] Lisinopril (Lisinopril 5 Mg Tab) 5 mg PO QAM [facility] Stop: 12/29/20 08:59 Last Admin: 11/29/20 15:16 Dose: Not Given Documented by: [id number] Phenylephrine HCl (Phenylephrine 100mcg/Ml 5ml Syr) Confirm Administered Dose 100 mcg .ROUTE .STK-MED ONE Stop: 11/29/20 11:14 Last Admin: 11/29/20 15:47 Dose: Not Given Documented by: [id number] Polyethylene Glycol (Polyethylene (Miralax) 17 Gm Pack) 119 gm PO DAILY ONE Stop: 11/29/20 17:01 Last Admin: 11/29/20 15:50 Dose: 119 gm Documented by: [id number] Polyethylene Glycol (Polyethylene (Miralax) 17 Gm Pack) 119 gm PO 2100 ONE Stop: 11/29/20 21:01 Last Admin: 11/29/20 22:04 Dose: 119 gm Documented by: [id number] Potassium Chloride (Potassium Chloride Crtab 20 Meq Tabcr) 40 meq PO NOW STA Stop: 12/01/20 08:07 Last Admin: 12/01/20 09:06 Dose: 40 meq Documented by: [id number] Potassium Chloride (Potassium Chloride Crtab 20 Meq Tabcr) 40 meq PO ONE ONE Stop: 12/01/20 14:01 Last Admin: 12/01/20 13:15 Dose: 40 meq Documented by: [id number] Potassium Chloride (Potassium Chloride Crtab 20 Meq Tabcr) 20 meq PO NOW STA Stop: 12/02/20 10:14 Last Admin: 12/02/20 10:32 Dose: 20 meq Documented by: [id number] Potassium Chloride (Potassium Chloride Pwd 20 Meq Pack) 40 meq PO ONE ONE Stop: 12/03/20 09:31 Last Admin: 12/03/20 10:21 Dose: 40 meq Documented by: [id number] Potassium Chloride (Potassium Chloride Crtab 20 Meq Tabcr) 40 meq PO NOW STA Stop: 12/04/20 07:55 Last Admin: 12/04/20 09:12 Dose: 40 meq Documented by: [id number] Propofol (Propofol Iv Emulsion 10 Mg/Ml 20 Ml Vial) Confirm Administered Dose 200 mg IV .STK-MED ONE Stop: 11/29/20 11:14 Last Admin: 11/29/20 15:47 Dose: Not Given Documented by: [id number] Propofol (Propofol Iv Emulsion 10 Mg/Ml 20 Ml Vial) Confirm Administered Dose 400 mg IV .STK-MED ONE Stop: 11/30/20 17:28 Last Admin: 11/30/20 18:22 Dose: Not Given Documented by: [id number] Description This is a 21 electrode EEG with a single channel dedicated to limited EKG. The electrodes were placed in accordance with the International 10-20 system. REPORT: At the onset of the EEG the patient is drowsy. The background is asymmetric with some suppressed activity in the right parasagittal head region. The background predominantly consist of 6-7 Hz theta activity with some intermixed delta activity. There are periods of superimposed faster activity when patient is more awake. Photic stimulation does not induce any abnormalities. No stage II sleep transients are seen. IMPRESSION: This is an abnormal awake and drowsy EEG due to 1. Focal slowing in the right parasagittal head region consistent with prior stroke, 2. Generalized slowing suggestive of a mild non specific encephalopathy. No epileptiform discharges are seen. No electrographic seizures are recorded.
[2020-12-07] MEDS: CLOPIDOGREL BISULFATE 75 MG TAB PO SCH (17:15)
[2020-12-07] MEDS: TAMSULOSIN HCL 0.4 MG CAP PO SCH (17:15)
--- NOTE | 2020-12-07 17:20 | Hospitalist Progress Note ---
Date of Service December 07, 2020 Assessment & Plan (1) GI bleed: Plan: GI bleed S/P 5 units PRBCs -S/P Coloscopy:Non-thrombosed external hemorrhoids found on digital rectal exam. One 10 mm polyp at the hepatic flexure, removed with a hot snare. Resected and retrieved. Clips (MR conditional) were placed. One 14 mm polyp in the sigmoid colon, removed with a hot snare. Resected and retrieved. Injected. Clips (MR conditional) were placed. Internal hemorrhoids. Mild diverticulosis in the sigmoid colon. A single (solitary) ulcer in the mid rectum. Clip (MR conditional) was placed. -S/P EGD: Normal esophagus. Z-line regular, 42 cm from the incisors. Normal stomach. Normal examined duodenum. No specimens collected. -Pathology: Sessile serrated adenoma, tubular adenoma. -Appreciate GI input Continue daily MiraLAX Needs repeat colonoscopy in 6 months Monitor H&H Prior hospitalist discussed with culinary assistant Dr. Connolly Aspirin discontinued indefinitely Hb stable Restarted Eliquis given history of paroxysmal A. fib, CVA, CAD S/P stent Monitor CBC daily Unresponsive Episode Unclear etiology DD: Seizure, Hypoxia -CT Head:No change in appearance of the brain. No acute findings. Old large right MCA territory infarct. -Head CTA:No acute central vessel occlusion. No intracranial aneurysm. Old large right MCA territory infarct. Recanalized right middle cerebral artery since CTA of December 06, 2019. Moderate plaque within the intracranial vessels. Mild stenosis of the left cavernous carotid. -Neck CTA: Stable exam from 12/06/2019 without aneurysm, dissection, high-grade stenosis or arterial occlusion. Severe emphysema. Layering left pleural effusion. -EEG:This is an abnormal awake and drowsy EEG due to 1. Focal slowing in the right parasagittal head region consistent with prior stroke, 2. Generalized slowing suggestive of a mild non specific encephalopathy. No epileptiform discharges are seen. No electrographic seizures are recorded. -Check MRI brain-pending Appreciate Neurology Input Acute Respiratory failure with Hypoxia -Chest CT: Patchy consolidative opacities associated with septal thickening and possible bronchial occlusion within left lower lobe which could represent pneumonia and/or aspiration. Please correlate this findings with prior history of aspiration. S Small left pleural effusion is seen on the left. Minimal atelectasis at dependent portion of the right lower lobe. Emphysema Questionable nodular irregularity within left upper lobe which might represent large pulmonary nodule or area of scarring. Significant motion artifact limits evaluation. Short-term follow-up in 4-6 weeks is recommended to document improvement improvement/resolution. Mild hiatal hernia. Cardiomegaly. -Aspiration precautions -Speech therapy consulted -Appreciate Tobacco Scrap Sifter Input -Empirically on Unasyn -Wean off of oxygen as able (2) CAD (coronary artery disease): Plan: chronic, no acute issues (3) Atrial fibrillation: Plan: - Continue metoprolol tartrate, amiodarone Restarted Eliquis (4) History of CVA (cerebrovascular accident): Plan: H/O CVA chronic, left hemiplegia, dysarthria is mild, some memory impairment but answers all questions appropriately. PT/OT (5) S/P drug eluting coronary stent placement: Plan: H/O CAD S/P Stent on plavix, Aspirin previously Appreciate cardiology Input (6) HTN (hypertension): Plan: Continue lisinopril, metoprolol tartrate (7) Hypercholesterolemia: Plan: - Continue statin (8) COPD (chronic obstructive pulmonary disease): Plan: - Continue home inhalers (9) BPH (benign prostatic hypertrophy): Plan: - Cont Flomax H/O Hematuria Follows with Urology Dr. Solano UTI ruled out (10) DVT prophylaxis: Plan: Eliquis CODE STATUS: Full code Admission and Anticipated Discharge Date Admission Date: November 29, 2020 Subjective Pain Patient is seen and examined at bedside Reports having Mental status seem to be back to baseline No recurrence of bleeding issues Hemoglobin stable Denied any chest pain, shortness of breath, dizziness, nausea, abdominal pain Review of Systems Review of Systems: All systems reviewed & are unremarkable except as noted in Subjective Physical Exam Physical Exam: Physical Exam: Vitals signs as noted above General Appearance:Moderately built and nourished, no apparent distress Head: normocephalic, Atraumatic Eyes: normal inspection, EOMI Neck: supple, Trachea midline Respiratory/Chest: Normal breath sounds, CTA Cardiovascular: S1, S2, No murmur Abdomen/GI:Soft, Non tender, Bowel sounds present Extremities/Musculoskeletal:normal inspection, no edema Neurologic/Psych:Alert awake, Chronic left hemiplegia with contractures Skin: normal color, warm Results & Data Results & Data ([facility]) Vital Signs (Past 12 Hours) Vital Signs Temp Pulse Resp BP Pulse Ox 12/07/20 16:12 152/129 H 99 12/07/20 15:13 134/68 98 12/07/20 14:11 67 16 165/113 H 98 12/07/20 13:00 36.5 C 64 20 165/113 H 99 12/07/20 12:30 95 12/07/20 12:17 99 12/07/20 11:19 55 L 16 152/58 H 96 12/07/20 10:11 56 L 16 152/68 H 12/07/20 09:11 58 L 15 131/82 94 12/07/20 08:12 70 18 107/76 92 12/07/20 08:01 60 12/07/20 07:12 55 L 16 154/57 H 95 12/07/20 06:12 55 L 149/57 H 93 Laboratory Results Short CBC 12/07/20 Range/Units 04:26 WBC 4.86 (4.8-10.8) K/uL Hgb 8.7 L (14.0-18.0) g/dL Hct 26.5 L (42-52) % Plt Count 222 (130-400) K/uL BMP 12/07/20 04:26 Sodium 141 Potassium 4.1 Chloride 112 H Carbon Dioxide 28 BUN 19 H Creatinine 0.76 Glucose 86 Calcium 8.4 L (1) CAD (coronary artery disease) Coronary Disease-Associated Artery/Lesion type: [place] artery [place] vs. transplanted heart: [place] heart Associated angina: without angina Qualified Code(s): I25.10 - Atherosclerotic heart disease of [place] coronary artery without angina pectoris (2) HTN (hypertension) Hypertension type: essential hypertension Qualified Code(s): I10 - Essential (primary) hypertension (3) BPH (benign prostatic hypertrophy) Lower urinary tract symptom presence: symptoms absent Qualified Code(s): N40.0 - Benign prostatic hyperplasia without lower urinary tract symptoms
--- NOTE | 2020-12-07 20:24 | Communication Note ---
Date of Service: December 07, 2020 Patient noted to have shi-red urine without discomfort as per RN. H&H stable AP Complicated UTI Urine CS, Cefepime for now
[2020-12-07 20:56] LABS: Basophils # (auto) 0.03 K/uL (0-0.2); Basophils % (auto) 0.5 %; Eosinophils # (auto) 0.28 K/uL (0-0.5); Eosinophils % (auto) 4.9 %; Hematocrit (blood only) 27.4 % (42-52); Hemoglobin 8.9 g/dL (14.0-18.0); Immature Granulocytes # (auto) 0.01 K/uL (0.00-0.02); Immature Granulocytes % (auto) 0.2 %; Lymphocytes % (auto) 15.8 %; Mean Corpuscular Hemoglobin 29.6 pg (25-34); Mean Corpuscular Hgb Conc 32.5 g/dL (32-36); Mean Platelet Volume 9.7 fL (7.4-10.4); Monocytes % (auto) 8.8 %; Neutrophils # (auto) 3.96 K/uL (1.4-6.5); Neutrophils % (auto) 69.8 %; Platelet Count 245 K/uL (130-400); RDW Coefficient of Variation 14.3 % (11.5-14.5); Red Blood Count 3.01 M/uL (4.7-6.1); White Blood Count 5.68 K/uL (4.8-10.8)
[2020-12-07] MEDS ORDERED: GADOBUTROL 65ML VIAL IV ONE (22:28)
[2020-12-08 00:15] LABS: Appearance Urine Clear (Clear); Bacteria Urine Automated Negative (Negative); Bilirubin Urine Negative (Negative); Blood Urine 3+ (Negative); Color Urine Orange; Epithelial Cell Urine Auto >30 /lpf (0-5); Glucose Urine UA Negative (Negative); Ketones Urine Trace (Negative); Leukocyte Esterase Urine 1+ (Negative); Nitrite Urine Negative (Negative); Protein Urine 1+ (Negative); RBC Urine Automated >30 /hpf (0-4); Specific Gravity Urine 1.039 (1.000-1.030); Urobilinogen Urine Negative (Negative); WBC Urine Automated >30 /hpf (0-5); pH Urine 6.5 (4.5-7.5)
[2020-12-08 00:30] LABS: Calcium Oxalate Crystals Urine Present (None Prsent)
[2020-12-08] MEDS: AMPICILLIN/SULBACTAM SOD 3,000 MG in 0.9 % SODIUM CHLORIDE 100 ML IV SCH ×2 (01:02→08:20)
[2020-12-08] MEDS ORDERED: CEFEPIME CONSULT ACTIVE PRN (01:41)
[2020-12-08] MEDS ORDERED: CEFEPIME 2,000 MG in SYRINGE 7.5 ML IV STA (01:41)
[2020-12-08] MEDS: CEFEPIME 2,000 MG in SYRINGE 0 ML IV SCH ×2 (02:09→14:24)
--- NOTE | 2020-12-08 08:04 | XRay Report ---
XR chest 1V portable HISTORY: Shortness of breath. Aspiration. Follow-up. COMPARISON: Chest 12/07/2020. FINDINGS: No pneumothorax. Small left pleural effusion and left basilar airspace opacity persists. Th e heart remains mildly enlarged. There is mild diffuse interstitial thickening which has slightly pro gressed. This may represent superimposed developing pulmonary edema. Rotated study. IMPRESSION: 1. No change in the small left pleural effusion and left basilar opacity. This favors a pneumonia. 2. Progressive diffuse interstitial thickening likely representing developing congestive change. ACT 112: Negative or not required by law. Electronically signed by: Raudel Gayle M.D. 12/08/2020 8:03 AM
[2020-12-08] MEDS: ATORVASTATIN 40 MG TAB PO SCH (08:21)
[2020-12-08] MEDS: AMIODARONE 200 MG TAB PO SCH (08:22)
[2020-12-08] MEDS: lisinopril 2.5 MG TAB PO SCH (08:22)
[2020-12-08] MEDS: PANTOprazole 40 MG TAB PO SCH (08:22)
[2020-12-08 08:23] LABS: Hematocrit (blood only) 26.5 % (42-52); Hemoglobin 8.6 g/dL (14.0-18.0)
[2020-12-08] MEDS: CLOPIDOGREL BISULFATE 75 MG TAB PO SCH (08:23)
[2020-12-08] MEDS: rOPINIRole HCL 0.25 MG TABLET PO SCH ×4 (08:23→19:51)
[2020-12-08] MEDS: FLUoxetine HCL 20 MG CAP PO SCH (08:23)
[2020-12-08] MEDS: FINASTERIDE 5 MG TAB PO SCH (08:26)
[2020-12-08] MEDS: APIXABAN 5 MG TABLET PO SCH ×2 (08:26→19:52)
[2020-12-08] MEDS: POT PHOSPHATE MONOBASIC W/ SOD TAB PO SCH ×4 (08:26→19:51)
[2020-12-08] MEDS: MULTIVITAMIN TAB PO SCH (08:26)
[2020-12-08] MEDS: METOPROLOL TARTRATE 25 MG TAB PO SCH (08:27)
[2020-12-08] MEDS: GABAPENTIN 100 MG CAP PO SCH ×3 (08:27→19:52)
[2020-12-08] MEDS: POLYETHYLENE (MIRALAX) 17 GM PACK PO SCH (08:28)
[2020-12-08] MEDS: ACETAMINOPHEN 500 MG TAB PO SCH ×4 (08:44→19:54)
[2020-12-08] MEDS: POTASSIUM CHLORIDE CRTAB 20 MEQ TABCR PO SCH (08:44)
[2020-12-08] MEDS: CHLORHEXIDINE GLUCONATE 0.12% 480 ML MT SCH ×3 (08:45→17:35)
[2020-12-08 09:00] LABS: BUN Creatinine Ratio 23.2 (10-20); Calcium 8.1 mg/dl (8.5-10.1); Creatinine Clr Calc Pharmacy 90.2 ml/min; Est GFR (African American) 103.4 ml/min; Est GFR (Non-African American) 89.2 ml/min; Potassium 3.8 mmol/L (3.5-5.1)
--- NOTE | 2020-12-08 10:29 | Magnetic Resonance Report ---
MRI OF THE BRAIN WITHOUT AND WITH IV CONTRAST CLINICAL HISTORY: R/O Acute CVA COMPARISON STUDY: No previous studies for comparison. TECHNIQUE: MRI of the brain was performed from the vertex to the skull base utilizing various T1 and T2 weighted sequences. Following the IV administration of 11.5 mL of Gadavist contrast, additional en hanced images were obtained. FINDINGS: Sagittal T1, axial diffusion, proton density and T2 weighted axial, coronal FLAIR, and pre and post a xial T1-weighted images were acquired. These were supplemented with post gadolinium coronal T1 weight ed images. There is large old right MCA territory infarct associated with mild volume loss and diffuse cortical prominence which might represent cortical laminal necrosis. Also smaller cortical infarct is seen within left occipital lobe. Focal areas of restricted diffusion is seen within partially spared cortex of the right occipital lob e consistent with acute ischemia. No large intracranial mass lesions are seen or acute hemorrhage. No midline shift. There is no evidence of ventricular dilatation. Proton density T2-weighted and FLAIR images reveal prominent areas of increased T2 FLAIR signal is se en within white matter surrounding right temporal and left occipital lobe infarcts consistent with gl iosis. There are no abnormal flow voids. There is no evidence of pathologic enhancement. IMPRESSION: 1. Few patchy focal areas of restricted diffusion/acute ischemia within the region of the prior larg e right MCA territory infarct. Findings will be called to patient's unit 2. Smaller old infarct within left temporal region. 3. No acute intracranial hemorrhage, no midline shift. 4. No areas of abnormal enhancement. ACT 112: Negative or not required by law. The above report was generated using voice recognition software. It may contain grammatical, syntax o r spelling errors. Electronically signed by: Elena Nelson DO 12/08/2020 10:28 AM
[2020-12-08] MEDS: metroNIDAZOLE 250 MG TAB PO SCH ×3 (11:54→19:51)
[2020-12-08] MEDS: TAMSULOSIN HCL 0.4 MG CAP PO SCH (15:28)
--- NOTE | 2020-12-08 18:37 | Hospitalist Progress Note ---
Date of Service December 08, 2020 Assessment & Plan (1) GI bleed: Plan: GI bleed S/P 5 units PRBCs -S/P Coloscopy:Non-thrombosed external hemorrhoids found on digital rectal exam. One 10 mm polyp at the hepatic flexure, removed with a hot snare. Resected and retrieved. Clips (MR conditional) were placed. One 14 mm polyp in the sigmoid colon, removed with a hot snare. Resected and retrieved. Injected. Clips (MR conditional) were placed. Internal hemorrhoids. Mild diverticulosis in the sigmoid colon. A single (solitary) ulcer in the mid rectum. Clip (MR conditional) was placed. -S/P EGD: Normal esophagus. Z-line regular, 42 cm from the incisors. Normal stomach. Normal examined duodenum. No specimens collected. -Pathology: Sessile serrated adenoma, tubular adenoma. -Appreciate GI input Continue daily MiraLAX Needs repeat colonoscopy in 6 months Prior hospitalist discussed with mattress specialist Dr. Connolly Aspirin discontinued indefinitely Restarted Eliquis, Plavix given history of paroxysmal A. fib, CVA, CAD S/P stent Monitor CBC daily Hb stable Acute CVA -MRI Brain:Few patchy focal areas of restricted diffusion/acute ischemia within the region of the prior large right MCA territory infarct. Findings will be called to patient's unit. Smaller old infarct within left temporal region. No acute intracranial hemorrhage, no midline shift. No areas of abnormal enhancement. -Head CTA:No acute central vessel occlusion. No intracranial aneurysm. Old large right MCA territory infarct. Recanalized right middle cerebral artery since CTA of December 06, 2019. Moderate plaque within the intracranial vessels. Mild stenosis of the left cavernous carotid. -Neck CTA: Stable exam from 12/06/2019 without aneurysm, dissection, high-grade stenosis or arterial occlusion. Severe emphysema. Layering left pleural effusion. -EEG:This is an abnormal awake and drowsy EEG due to 1. Focal slowing in the right parasagittal head region consistent with prior stroke, 2. Generalized slowing suggestive of a mild non specific encephalopathy. No epileptiform discharges are seen. No electrographic seizures are recorded. Appreciate Neurology Input Resumed Plavix Also on Eliquis Suspected UTI Transient Hematuria Urine Cx pending Continue Cefepime Consider urology evaluation if recurrence of hematuria Acute Respiratory failure with Hypoxia -Chest CT: Patchy consolidative opacities associated with septal thickening and possible bronchial occlusion within left lower lobe which could represent pneumonia and/or aspiration. Please correlate this findings with prior history of aspiration. S Small left pleural effusion is seen on the left. Minimal atelectasis at dependent portion of the right lower lobe. Emphysema Questionable nodular irregularity within left upper lobe which might represent large pulmonary nodule or area of scarring. Significant motion artifact limits evaluation. Short-term follow-up in 4-6 weeks is recommended to document improvement improvement/resolution. Mild hiatal hernia. Cardiomegaly. -Aspiration precautions -Speech therapy consulted -Appreciate Professor Of Rhetoric Input -Empirically started on Unasyn>> transition to Cefepime, Flagyl -Wean off of oxygen as able (2) CAD (coronary artery disease): Plan: chronic, no acute issues (3) Atrial fibrillation: Plan: - Continue metoprolol tartrate, amiodarone Continue Eliquis (4) History of CVA (cerebrovascular accident): Plan: H/O CVA chronic, left hemiplegia, dysarthria is mild, some memory impairment but answers all questions appropriately. PT/OT (5) S/P drug eluting coronary stent placement: Plan: H/O CAD S/P Stent on plavix, Aspirin previously Appreciate cardiology Input (6) HTN (hypertension): Plan: Continue lisinopril, metoprolol tartrate (7) Hypercholesterolemia: Plan: - Continue statin (8) COPD (chronic obstructive pulmonary disease): Plan: - Continue home inhalers (9) BPH (benign prostatic hypertrophy): Plan: - Cont Flomax H/O Hematuria Follows with Urology Dr. Solano UTI ruled out (10) DVT prophylaxis: Plan: Eliquis CODE STATUS: Full code Admission and Anticipated Discharge Date Admission Date: November 29, 2020 Subjective Patient is seen and examined at bedside States feeling well this morning Had transient hematuria overnight Urine clear this morning Denied any chest pain, shortness of breath, dizziness, nausea, abdominal pain Review of Systems Review of Systems: All systems reviewed & are unremarkable except as noted in Subjective Physical Exam Physical Exam: Physical Exam: Vitals signs as noted above General Appearance:Moderately built and nourished, no apparent distress Head: normocephalic, Atraumatic Eyes: normal inspection, EOMI Neck: supple, Trachea midline Respiratory/Chest: Normal breath sounds, CTA Cardiovascular: S1, S2, No murmur Abdomen/GI:Soft, Non tender, Bowel sounds present Extremities/Musculoskeletal:normal inspection, no edema Neurologic/Psych:Alert awake, Chronic left hemiplegia with contractures Skin: normal color, warm Results & Data Results & Data ([facility]) Vital Signs (Past 12 Hours) Vital Signs Temp Pulse Resp BP Pulse Ox 12/08/20 15:40 36.5 C 58 L 20 119/62 90 12/08/20 12:23 36.4 C L 55 L 18 122/66 92 12/08/20 06:56 36.9 C 61 20 133/63 94 Laboratory Results Short CBC 12/07/20 12/08/20 Range/Units 20:34 07:36 WBC 5.68 (4.8-10.8) K/uL Hgb 8.9 L 8.6 L (14.0-18.0) g/dL Hct 27.4 L 26.5 L (42-52) % Plt Count 245 (130-400) K/uL BMP 12/08/20 07:36 Sodium 143 Potassium 3.8 Chloride 112 H Carbon Dioxide 25 BUN 19 H Creatinine 0.80 Glucose 90 Calcium 8.1 L Urine 12/07/20 Range/Units 23:55 Urine Color [place] Urine Appearance Clear (Clear) Urine pH 6.5 (4.5-7.5) Ur Specific [place] 1.039 H (1.000-1.030) Urine Protein 1+ H (Negative) Urine Glucose (UA) Negative (Negative) (1) CAD (coronary artery disease) Coronary Disease-Associated Artery/Lesion type: [place] artery [place] vs. tr ansplanted heart: [place] heart Associated angina: without angina Qualified Code(s): I25.10 - Atherosclerotic heart disease of [place] coronary artery without angina pectoris (2) HTN (hypertension) Hypertension type: essential hypertension Qualified Code(s): I10 - Essential (primary) hypertension (3) BPH (benign prostatic hypertrophy) Lower urinary tract symptom presence: symptoms absent Qualified Code(s): N40.0 - Benign prostatic hyperplasia without lower urinary tract symptoms
[2020-12-09] MEDS: CEFEPIME 2,000 MG in SYRINGE 0 ML IV SCH ×2 (02:00→14:09)
[2020-12-09 05:48] LABS: Hemoglobin 8.7 g/dL (14.0-18.0)
[2020-12-09] MEDS: PANTOprazole 40 MG TAB PO SCH (09:54)
[2020-12-09] MEDS: MULTIVITAMIN TAB PO SCH (09:54)
[2020-12-09] MEDS: METOPROLOL TARTRATE 25 MG TAB PO SCH (09:55)
[2020-12-09] MEDS: FINASTERIDE 5 MG TAB PO SCH (09:56)
[2020-12-09] MEDS: lisinopril 2.5 MG TAB PO SCH (09:56)
[2020-12-09] MEDS: FLUoxetine HCL 20 MG CAP PO SCH (09:56)
[2020-12-09] MEDS: GABAPENTIN 100 MG CAP PO SCH ×3 (09:56→21:59)
[2020-12-09] MEDS: ATORVASTATIN 40 MG TAB PO SCH (09:57)
[2020-12-09] MEDS: CLOPIDOGREL BISULFATE 75 MG TAB PO SCH (09:57)
[2020-12-09] MEDS: APIXABAN 5 MG TABLET PO SCH ×2 (09:58→21:59)
[2020-12-09] MEDS: ACETAMINOPHEN 500 MG TAB PO SCH ×4 (09:58→21:57)
[2020-12-09] MEDS: metroNIDAZOLE 250 MG TAB PO SCH ×3 (10:00→21:59)
[2020-12-09] MEDS: POLYETHYLENE (MIRALAX) 17 GM PACK PO SCH (10:01)
[2020-12-09] MEDS: CHLORHEXIDINE GLUCONATE 0.12% 480 ML MT SCH ×3 (10:02→17:01)
[2020-12-09] MEDS: rOPINIRole HCL 0.25 MG TABLET PO SCH ×4 (10:02→22:00)
[2020-12-09] MEDS: AMIODARONE 200 MG TAB PO SCH (10:21)
[2020-12-09] MEDS: TAMSULOSIN HCL 0.4 MG CAP PO SCH (17:01)
--- NOTE | 2020-12-09 17:08 | Hospitalist Progress Note ---
Date of Service December 09, 2020 Assessment & Plan (1) GI bleed: Plan: GI bleed S/P 5 units PRBCs -S/P Coloscopy:Non-thrombosed external hemorrhoids found on digital rectal exam. One 10 mm polyp at the hepatic flexure, removed with a hot snare. Resected and retrieved. Clips (MR conditional) were placed. One 14 mm polyp in the sigmoid colon, removed with a hot snare. Resected and retrieved. Injected. Clips (MR conditional) were placed. Internal hemorrhoids. Mild diverticulosis in the sigmoid colon. A single (solitary) ulcer in the mid rectum. Clip (MR conditional) was placed. -S/P EGD: Normal esophagus. Z-line regular, 42 cm from the incisors. Normal stomach. Normal examined duodenum. No specimens collected. -Pathology: Sessile serrated adenoma, tubular adenoma. -Appreciate GI input Continue daily MiraLAX Needs repeat colonoscopy in 6 months Prior hospitalist discussed with industrial sales engineer Dr. Connolly Aspirin discontinued indefinitely Restarted Eliquis, Plavix given history of paroxysmal A. fib, CVA, CAD S/P stent Monitor CBC daily Hb stable: 8.7 Acute CVA -MRI Brain:Few patchy focal areas of restricted diffusion/acute ischemia within the region of the prior large right MCA territory infarct. Findings will be called to patient's unit. Smaller old infarct within left temporal region. No acute intracranial hemorrhage, no midline shift. No areas of abnormal enhancement. -Head CTA:No acute central vessel occlusion. No intracranial aneurysm. Old large right MCA territory infarct. Recanalized right middle cerebral artery since CTA of December 06, 2019. Moderate plaque within the intracranial vessels. Mild stenosis of the left cavernous carotid. -Neck CTA: Stable exam from 12/06/2019 without aneurysm, dissection, high-grade stenosis or arterial occlusion. Severe emphysema. Layering left pleural effusion. -EEG:This is an abnormal awake and drowsy EEG due to 1. Focal slowing in the right parasagittal head region consistent with prior stroke, 2. Generalized slowing suggestive of a mild non specific encephalopathy. No epileptiform discharges are seen. No electrographic seizures are recorded. Appreciate Neurology Input Continue Plavix Also on Eliquis Suspected UTI--Ruled out Transient Hematuria Urine Cx Negative Received Cefepime Consider urology evaluation if recurrence of hematuria Acute Respiratory failure with Hypoxia -Chest CT: Patchy consolidative opacities associated with septal thickening and possible bronchial occlusion within left lower lobe which could represent pneumonia and/or aspiration. Please correlate this findings with prior history of aspiration. S Small left pleural effusion is seen on the left. Minimal atelectasis at dependent portion of the right lower lobe. Emphysema Questionable nodular irregularity within left upper lobe which might represent large pulmonary nodule or area of scarring. Significant motion artifact limits evaluation. Short-term follow-up in 4-6 weeks is recommended to document improvement improvement/resolution. Mild hiatal hernia. Cardiomegaly. -Aspiration precautions -Speech therapy consulted -Appreciate Social Science Research Assistant Input -Empirically started on Unasyn>> transition to Cefepime, Flagyl -Wean off of oxygen as able -Transition to p.o. antibiotics tomorrow (2) CAD (coronary artery disease): Plan: chronic, no acute issues (3) Atrial fibrillation: Plan: - Continue metoprolol tartrate, amiodarone Continue Eliquis (4) History of CVA (cerebrovascular accident): Plan: H/O CVA chronic, left hemiplegia, dysarthria is mild, some memory impairment but answers all questions appropriately. PT/OT (5) S/P drug eluting coronary stent placement: Plan: H/O CAD S/P Stent on plavix, Aspirin previously Appreciate cardiology Input (6) HTN (hypertension): Plan: Continue lisinopril, metoprolol tartrate (7) Hypercholesterolemia: Plan: - Continue statin (8) COPD (chronic obstructive pulmonary disease): Plan: - Continue home inhalers (9) BPH (benign prostatic hypertrophy): Plan: - Cont Flomax H/O Hematuria Follows with Urology Dr. Solano UTI ruled out (10) DVT prophylaxis: Plan: Eliquis CODE STATUS: Full code Admission and Anticipated Discharge Date Admission Date: November 29, 2020 Subjective Patient is seen and examined at bedside No new complaints Discussed in detail with patient's at bedside Eager to get discharged Urine culture negative Hb stable Denied any chest pain, shortness of breath, dizziness, nausea, abdominal pain Review of Systems Review of Systems: All systems reviewed & are unremarkable except as noted in Subjective Physical Exam Physical Exam: Physical Exam: Vitals signs as noted above General Appearance:Moderately built and nourished, no apparent distress Head: normocephalic, Atraumatic Eyes: normal inspection, EOMI Neck: supple, Trachea midline Respiratory/Chest: Normal breath sounds, CTA Cardiovascular: S1, S2, No murmur Abdomen/GI:Soft, Non tender, Bowel sounds present Extremities/Musculoskeletal:normal inspection, no edema Neurologic/Psych:Alert awake, Chronic left hemiplegia with contractures Skin: normal color, warm Results & Data Results & Data ([facility]) Vital Signs (Past 12 Hours) Vital Signs Temp Pulse Pulse Resp BP Pulse Ox 12/09/20 16:25 36.9 C 53 L 16 122/69 93 12/09/20 12:30 36.0 C L 53 L 18 138/53 L 96 12/09/20 10:21 61 12/09/20 08:53 36.3 C L 56 L 135/63 91 12/09/20 07:48 64 Laboratory Results Short CBC 12/09/20 Range/Units 05:13 Hgb 8.7 L (14.0-18.0) g/dL Hct 27.0 L (42-52) % (1) CAD (coronary artery disease) Coronary Disease-Associated Artery/Lesion type: [place] artery [place] vs. transplanted heart: [place] heart Associated angina: without angina Qualified Code(s): I25.10 - Atherosclerotic heart disease of [place] coronary artery without angina pectoris (2) HTN (hypertension) Hypertension type: essential hypertension Qualified Code(s): I10 - Essential (primary) hypertension (3) BPH (benign prostatic hypertrophy) Lower urinary tract symptom presence: symptoms absent Qualified Code(s): N40.0 - Benign prostatic hyperplasia without lower urinary tract symptoms
[2020-12-10] MEDS: CEFEPIME 2,000 MG in SYRINGE 0 ML IV SCH (02:29)
[2020-12-10 06:29] LABS: Hematocrit (blood only) 27.6 % (42-52); Hemoglobin 8.8 g/dL (14.0-18.0)
[2020-12-10 06:58] LABS: BUN Creatinine Ratio 31.3 (10-20); Calcium 8.6 mg/dl (8.5-10.1); Creatinine Clr Calc Pharmacy 93.5 ml/min; Est GFR (African American) 105.1 ml/min; Est GFR (Non-African American) 90.7 ml/min; Phosphorus 2.4 mg/dl (2.5-4.9); Potassium 4.1 mmol/L (3.5-5.1)
[2020-12-10] MEDS: rOPINIRole HCL 0.25 MG TABLET PO SCH ×2 (09:23→12:21)
[2020-12-10] MEDS: MULTIVITAMIN TAB PO SCH (09:24)
[2020-12-10] MEDS: PANTOprazole 40 MG TAB PO SCH (09:24)
[2020-12-10] MEDS: metroNIDAZOLE 250 MG TAB PO SCH (09:24)
[2020-12-10] MEDS: lisinopril 2.5 MG TAB PO SCH (09:25)
[2020-12-10] MEDS: GABAPENTIN 100 MG CAP PO SCH (09:25)
[2020-12-10] MEDS: FINASTERIDE 5 MG TAB PO SCH (09:26)
[2020-12-10] MEDS: CLOPIDOGREL BISULFATE 75 MG TAB PO SCH (09:26)
[2020-12-10] MEDS: FLUoxetine HCL 20 MG CAP PO SCH (09:26)
[2020-12-10] MEDS: ATORVASTATIN 40 MG TAB PO SCH (09:27)
[2020-12-10] MEDS: APIXABAN 5 MG TABLET PO SCH (09:27)
[2020-12-10] MEDS: CHLORHEXIDINE GLUCONATE 0.12% 480 ML MT SCH (09:28)
[2020-12-10] MEDS: ACETAMINOPHEN 500 MG TAB PO SCH ×2 (09:35→12:20)
[2020-12-10] MEDS: POLYETHYLENE (MIRALAX) 17 GM PACK PO SCH ×2 (09:36→09:46)
[2020-12-10] MEDS: METOPROLOL TARTRATE 25 MG TAB PO SCH (09:37)
[2020-12-10] MEDS: AMIODARONE 200 MG TAB PO SCH (09:37)
--- NOTE | 2020-12-10 10:19 | Hospitalist Progress Note ---
Date of Service December 10, 2020 Assessment & Plan (1) GI bleed: Plan: GI bleed S/P 5 units PRBCs -S/P Coloscopy:Non-thrombosed external hemorrhoids found on digital rectal exam. One 10 mm polyp at the hepatic flexure, removed with a hot snare. Resected and retrieved. Clips (MR conditional) were placed. One 14 mm polyp in the sigmoid colon, removed with a hot snare. Resected and retrieved. Injected. Clips (MR conditional) were placed. Internal hemorrhoids. Mild diverticulosis in the sigmoid colon. A single (solitary) ulcer in the mid rectum. Clip (MR conditional) was placed. -S/P EGD: Normal esophagus. Z-line regular, 42 cm from the incisors. Normal stomach. Normal examined duodenum. No specimens collected. -Pathology: Sessile serrated adenoma, tubular adenoma. -Appreciate GI input Continue daily MiraLAX Needs repeat colonoscopy in 6 months Prior hospitalist discussed with specimen collector Dr. Connolly Aspirin discontinued indefinitely Restarted Eliquis, Plavix given history of paroxysmal A. fib, CVA, CAD S/P stent Monitor CBC Hb stable: 8.8 Hb stable while on Eliquis, Plavix Acute CVA -MRI Brain:Few patchy focal areas of restricted diffusion/acute ischemia within the region of the prior large right MCA territory infarct. Findings will be call ed to patient's unit. Smaller old infarct within left temporal region. No acute intracranial hemorrhage, no midline shift. No areas of abnormal enhancement. -Head CTA:No acute central vessel occlusion. No intracranial aneurysm. Old large right MCA territory infarct. Recanalized right middle cerebral artery since CTA of December 06, 2019. Moderate plaque within the intracranial vessels. Mild stenosis of the left cavernous carotid. -Neck CTA: Stable exam from 12/06/2019 without aneurysm, dissection, high-grade stenosis or arterial occlusion. Severe emphysema. Layering left pleural effusion. -EEG:This is an abnormal awake and drowsy EEG due to 1. Focal slowing in the right parasagittal head region consistent with prior stroke, 2. Generalized slowing suggestive of a mild non specific encephalopathy. No epileptiform discharges are seen. No electrographic seizures are recorded. Appreciate Neurology Input Continue Plavix, Lipitor Also on Eliquis Suspected UTI--Ruled out Transient Hematuria Urine Cx Negative Received Cefepime Consider urology evaluation if recurrence of hematuria Acute Respiratory failure with Hypoxia -Chest CT: Patchy consolidative opacities associated with septal thickening and possible bronchial occlusion within left lower lobe which could represent pneumonia and/or aspiration. Please correlate this findings with prior history of aspiration. S Small left pleural effusion is seen on the left. Minimal atelectasis at dependent portion of the right lower lobe. Emphysema Questionable nodular irregularity within left upper lobe which might represent large pulmonary nodule or area of scarring. Significant motion artifact limits evaluation. Short-term follow-up in 4-6 weeks is recommended to document improvement improvement/resolution. Mild hiatal hernia. Cardiomegaly. -Aspiration precautions -Speech therapy consulted -Appreciate Telecommunications Switch Technician Input -Empirically started on Unasyn>> transition to Cefepime, Flagyl -Wean off of oxygen as able (2) CAD (coronary artery disease): Plan: chronic, no acute issues (3) Atrial fibrillation: Plan: - Continue metoprolol tartrate, amiodarone Continue Eliquis (4) History of CVA (cerebrovascular accident): Plan: H/O CVA chronic, left hemiplegia, dysarthria is mild, some memory impairment but answers all questions appropriately. PT/OT (5) S/P drug eluting coronary stent placement: Plan: H/O CAD S/P Stent on plavix, Aspirin previously Aspirin DCed as recommended by Cardiology Continue Plavix, statin Appreciate cardiology Input (6) HTN (hypertension): Plan: Continue lisinopril, metoprolol tartrate (7) Hypercholesterolemia: Plan: - Continue statin (8) COPD (chronic obstructive pulmonary disease): Plan: - Continue home inhalers (9) BPH (benign prostatic hypertrophy): Plan: - Cont Flomax H/O Hematuria Follows with Urology Dr. Solano UTI ruled out (10) DVT prophylaxis: Plan: Eliquis CODE STATUS: Full code Disposition SNF Admission and Anticipated Discharge Date Admission Date: November 29, 2020 Subjective Patient is seen and examined at bedside No recurrence of bleeding Hb stable Denied any chest pain, shortness of breath, dizziness, nausea, abdominal pain Plan to discharge to SNF today Review of Systems Review of Systems: All systems reviewed & are unremarkable except as noted in Subjective Physical Exam Physical Exam: Physical Exam: Vitals signs as noted above General Appearance:Moderately built and nourished, no apparent distress Head: normocephalic, Atraumatic Eyes: normal inspection, EOMI Neck: supple, Trachea midline Respiratory/Chest: Normal breath sounds, CTA Cardiovascular: S1, S2, No murmur Abdomen/GI:Soft, Non tender, Bowel sounds present Extremities/Musculoskeletal:normal inspection, no edema Neurologic/Psych:Alert awake, Chronic left hemiplegia with contractures Skin: normal color, warm Results & Data Results & Data ([facility]) Vital Signs (Past 12 Hours) Vital Signs Temp Pulse Pulse Resp BP Pulse Ox 12/10/20 08:31 36.6 C 59 L 18 126/61 93 12/10/20 07:37 58 L 12/10/20 03:29 37 C 100 H 17 131/61 96 12/09/20 23:48 54 L 12/09/20 22:57 36.6 C 57 L 17 126/63 96 Laboratory Results Short CBC 12/10/20 Range/Units 05:40 Hgb 8.8 L (14.0-18.0) g/dL Hct 27.6 L (42-52) % BMP 12/10/20 05:40 Sodium 142 Potassium 4.1 Chloride 112 H Carbon Dioxide 29 BUN 24 H Creatinine 0.77 Glucose 93 Calcium 8.6 (1) BPH (benign prostatic hypertrophy) Lower urinary tract symptom presence: symptoms absent Qualified Code(s): N40.0 - Benign prostatic hyperplasia without lower urinary tract symptoms (2) CAD (coronary artery disease) Associated angina: without angina Coronary Disease-Associated Artery/Lesion type: [place] artery [place] vs. transplanted heart: [place] heart Qualified Code(s): I25.10 - Atherosclerotic heart disease of [place] coronary artery without angina pectoris (3) HTN (hypertension) Hypertension type: essential hypertension Qualified Code(s): I10 - Essential (primary) hypertension
--- NOTE | 2020-12-10 10:36 | Discharge Summary ---
Date of Service December 10, 2020 Admission HPI Per Admitting Provider This is a 70 yo M with PMhx of left hemiplegia and dysarthria s/p CVA, CAD s/p stent placement LAD 2003 and 11/2019 on plavix, afib on eliquis, chronic systolic CHF, HTN, HLD, COPD, hx of PE 11/29/2019, BPH, severe protein calorie malnutrition, and hx of tobacco use who presents with acute onset of blood per rectum. The patient was recently admitted in September 2020 to the hospital for cellulitis of scrotum and hematuria, urinary tract infection, pneumonia and metabolic encephalopathy from the aforementioned issues. The patient presents with 2 days of diarrhea and blood streaking in brown stool. He thinks he has had BM 2-3 times per day. Denies black tarry stools. He reports there is blood on tissue whenever he wipes. Patient denies any history of hemorrhoids or of ever having a colonoscopy, let alone abnormal results on such. He denies any personal history of gastric or colon cancers as well as family history of such. He denies any abdominal pain, cramping, nausea or vomiting. He does not endorse lightheadedness, dizziness. Patient ambulation is limited due to his history of CVA and left hemiparetic plegia, reports that he is able to use a walker/cane with nursing assistance. He has not walked much in the past 2 days due to not wanting to be a bother to nursing. He last took his morning medications this morning, however patient is unaware of his medications and states "I just take what they give me". He does know that he is on some blood thinners. Admission Exam Per Admitting Provider Physical Exam Physical Exam: General: awake, alert, no apparent distress Head: Normocephalic, atraumatic ENT: PERRL, EOMI, no pharyngeal exudate, mucous membranes moist Chest: Clear to auscultation, on room air, no adventitious breath sounds Cardiac: Regular rhythm, heart rate in the mid 90s, no murmur, no JVD, normal peripheral pulses, good capillary refill Abdominal: NABS x 4 quadrants, soft, nondistended, nontender to palpation, no rebound or guarding Extremities: Normal inspection, + chronic venous stasis changes bilaterally, no peripheral edema or erythema, calfs nontender to palpation, + contracture left hand and muscular atrophy left lower extremity Psych: Normal mood, flat affect Neuro: AAO x 3, left hemiplegia, speech is sometimes delayed, clear, no peripheral sensory deficits Principal Diagnosis Acute GI bleed Acute cerebrovascular accident Acute Respiratory failure with Hypoxia Possible Aspiration Discharge Data Allergies Allergy/AdvReac Type Severity Reaction Status Date / Time No Known Allergies Allergy Verified 11/28/20 08:50 Consultations 11/28/20 11:05 ED Decision to Admit Stat 11/28/20 11:13 Consult Gastroenterology Routine 12/03/20 10:02 Consult Cardiology Routine 12/06/20 15:32 Consult Neurology Routine 12/06/20 17:24 Consult Cash Reconciliation Specialist Routine Procedures Performed Operation Date: 11/29/20 16:55 Actual Procedures p Esophagogastroduodenoscopy - Jia Blackmon DO Operation Date: 11/30/20 16:45 Actual Procedures p Colonoscopy Polypectomy - Jia Blackmon DO s Colonoscopy Hemostasis - Jia Blackmon DO Ordered Studies 11/28/20 12:41 CT abd pelvis oral and IV con Stat 12/06/20 15:21 CT chest diagnostic wo con Stat CT head/brain wo con Stat 12/06/20 15:29 CT angio head w con Stat CT angio neck with con Stat 12/07/20 11:00 FL video swallow Routine 12/07/20 17:18 MR brain wo/w con Routine Hospital Course (1) GI bleed: GI bleed S/P 5 units PRBCs -S/P Coloscopy:Non-thrombosed external hemorrhoids found on digital rectal exam. One 10 mm polyp at the hepatic flexure, removed with a hot snare. Resected and retrieved. Clips (MR conditional) were placed. One 14 mm polyp in the sigmoid colon, removed with a hot snare. Resected and retrieved. Injected. Clips (MR conditional) were placed. Internal hemorrhoids. Mild diverticulosis in the sigmoid colon. A single (solitary) ulcer in the mid rectum. Clip (MR conditional) was placed. -S/P EGD: Normal esophagus. Z-line regular, 42 cm from the incisors. Normal stomach. Normal examined duodenum. No specimens collected. -Pathology: Sessile serrated adenoma, tubular adenoma. -Appreciate GI input Continue daily MiraLAX Needs repeat colonoscopy in 6 months Prior hospitalist discussed with doughnut machine operator Dr. Connolly Aspirin discontinued indefinitely Restarted Eliquis, Plavix given history of paroxysmal A. fib, CVA, CAD S/P stent Monitor CBC Hb stable: 8.8 Hb stable while on Eliquis, Plavix Acute CVA -MRI Brain:Few patchy focal areas of restricted diffusion/acute ischemia within the region of the prior large right MCA territory infarct. Findings will be called to patient's unit. Smaller old infarct within left temporal region. No acute intracranial hemorrhage, no midline shift. No areas of abnormal enhancement. -Head CTA:No acute central vessel occlusion. No intracranial aneurysm. Old large right MCA territory infarct. Recanalized right middle cerebral artery since CTA of December 06, 2019. Moderate plaque within the intracranial vessels. Mild stenosis of the left cavernous carotid. -Neck CTA: Stable exam from 12/06/2019 without aneurysm, dissection, high-grade stenosis or arterial occlusion. Severe emphysema. Layering left pleural effusion. -EEG:This is an abnormal awake and drowsy EEG due to 1. Focal slowing in the right parasagittal head region consistent with prior stroke, 2. Generalized slowing suggestive of a mild non specific encephalopathy. No epileptiform discharges are seen. No electrographic seizures are recorded. Appreciate Neurology Input Continue Plavix, Lipitor Also on Eliquis Suspected UTI--Ruled out Transient Hematuria Urine Cx Negative Received Cefepime Consider urology evaluation if recurrence of hematuria Acute Respiratory failure with Hypoxia -Chest CT: Patchy consolidative opacities associated with septal thickening and possible bronchial occlusion within left lower lobe which could represent pneumonia and/or aspiration. Please correlate this findings with prior history of aspiration. S Small left pleural effusion is seen on the left. Minimal atelectasis at dependent portion of the right lower lobe. Emphysema Questionable nodular irregularity within left upper lobe which might represent large pulmonary nodule or area of scarring. Significant motion artifact limits evaluation. Short-term follow-up in 4-6 weeks is recommended to document improvement improvement/resolution. Mild hiatal hernia. Cardiomegaly. -Aspiration precautions -Speech therapy consulted -Appreciate Cash Reconciliation Specialist Input -Empirically started on Unasyn>> transition to Cefepime, Flagyl -Wean off of oxygen as able (2) CAD (coronary artery disease): chronic, no acute issues (3) Atrial fibrillation: - Continue metoprolol tartrate, amiodarone Continue Eliquis (4) History of CVA (cerebrovascular accident): H/O CVA chronic, left hemiplegia, dysarthria is mild, some memory impairment but answers all questions appropriately. PT/OT (5) S/P drug eluting coronary stent placement: H/O CAD S/P Stent on plavix, Aspirin previously Aspirin DCed as recommended by Cardiology Continue Plavix, statin Appreciate cardiology Input (6) HTN (hypertension): Continue lisinopril, metoprolol tartrate (7) Hypercholesterolemia: - Continue statin (8) COPD (chronic obstructive pulmonary disease): - Continue home inhalers (9) BPH (benign prostatic hypertrophy): - Cont Flomax H/O Hematuria Follows with Urology Dr. Solano UTI ruled out (10) DVT prophylaxis: Eliquis CODE STATUS: Full code Disposition SNF Total Time Total Time Spent Total Time Spent (In Minutes): 40 minutes Discharge Plan Discharge Items Patient Disposition: Transfer [facility] Reason For Visit: GI BLEED Discharge Diagnosis: Acute GI bleed Acute cerebrovascular accident Acute Respiratory failure with Hypoxia Possible Aspiration Activity: Per Instructions section Exercise/Sports: Gradually increase as tolerated Non-emergency contact: Primary Care Provider, Hand Molder Meat and Neurologist Call non-emergency contact if: you have any medication questions, your symptoms worsen, your pain is concerning for you and you have a fever Follow-up/Referrals: Yanni Ferreira [Primary Care Provider] - Diet: Heart Healthy Diet Texture: Easy to Chew Addtl Attending Provider Instructions: Follow-up with your primary care physician in 1 week upon discharge Follow-up with your rag sorter for repeat colonoscopy in 6 months Follow-up with your doughnut machine operator as recommended in 1 month Follow-up with your neurologist Dr. Meyer in 4-6 weeks Continue MiraLAX 17 g daily as recommended by your rag sorter Continue Protonix twice a day Complete antibiotic course Augmentin for 2 more days as prescribed Wean off of supplemental oxygen as able. Do not take group of medications belonging to NSAIDs group -can cause worsening of your Bleeding and kidney function. List Of these medications includes but not limited to: Aspirin Diclofenac Ibuprofen, Motrin, Advil Toradol,ketorolac Naproxen, Aleve, Naprosyn Seek immediate medical attention if your symptoms reoccur or worsen Please take all medications as instructed on discharge list below. Please call if you have any questions or problems. You can reach a [facility] hospitalist on duty at [facility] 24 hours a day by calling [phone] Risk Factors for Stroke: You can reduce your chances of stroke by working with your medical provider to adopt a healthy lifestyle. Some specific ways to lower your chance of stroke are: * If you are a smoker, now is the time to stop smoking cigarettes * If you are diabetic, improve the control of your blood sugars * Avoid excessive amounts of alcohol * Control high blood pressure * Lose weight if you are overweight * Be sure to lead an active lifestyle * Eat a healthy diet low in salt, cholesterol and fat You should know about other risk factors for stroke that you are unable to control. These include: * Age 55 years or older * Male gender * Certain racial groups: , or / * Family History of Stroke, Mini stroke or Heart Attack * Sickle Cell Disease Follow Up: It is important for you to keep your follow up appointments with your medical provider. Who to Call and When: Medical Emergencies: Call 911 immediately if you experience any of the following warning signs and symptoms of Stroke: * Sudden numbness or weakness of the face, arm or leg, especially on one side of the body * Sudden confusion, trouble speaking or understanding * Sudden trouble seeing in one or both eyes * Sudden trouble walking, dizziness, loss of balance or coordination * Sudden severe headache with no cause Do not delay calling 911 if you experience any warning signs or symptoms of a stroke. Delay in seeking medical attention may affect what treatments can be given to you. . Pending Studies at Discharge: No Stand-Alone Forms: My [facility] Skilled Items Patient informed of condition?: Yes DNR: No Discharge Level of Care: Skilled Communicable Disease: No Discharge Prognosis: Stable Lines: None Urinary Catheter: No Medications and DC Order Prescriptions: New Phospha 250 Neutral 250 mg Tablet 1 tab PO QID 7 Days Qty: 28 RF: 0 polyethylene glycol 3350 [Miralax] 17 gram Powder In Packet 17 g PO DAILY Qty: 30 RF: 0 pantoprazole 40 mg Tablet,Delayed Release (Dr/Ec) 40 mg PO BID Qty: 60 RF: 1 amoxicillin-pot clavulanate [Augmentin] 500-125 mg tablet 1 tab PO BID Qty: 5 RF: 0 Continued multivitamin [Daily Multi-Vitamin] tablet 1 tab PO QAM RF: 0 acetaminophen [Tylenol] 325 mg Tablet 325 mg PO Q4H PRN (Reason: Pain) RF: 0 amiodarone [Pacerone] 200 mg tablet 200 mg PO QAM RF: 0 acetaminophen [Acetaminophen Extra Strength] 500 mg Tablet 500 mg PO QID RF: 0 tamsulosin [Flomax] 0.4 mg capsule 0.4 mg PO QDD RF: 0 ropinirole 0.5 mg tablet 0.5 mg PO QID RF: 0 gabapentin [Neurontin] 100 mg capsule 100 mg PO TID RF: 0 fluoxetine [Prozac] 20 mg capsule 20 mg PO QAM RF: 0 finasteride [Proscar] 5 mg tablet 5 mg PO QAM RF: 0 cholecalciferol (vitamin D3) [Vitamin D3] 25 mcg (1,000 unit) capsule 25 mcg PO QAM RF: 0 chlorhexidine gluconate [Peridex] 0.12 % mouthwash 1 applic PO TID RF: 0 Eliquis 5 mg tablet 5 mg PO BID RF: 0 atorvastatin [Lipitor] 80 mg tablet 80 mg PO QAM RF: 0 clopidogrel [Plavix] 75 mg tablet 75 mg PO QAM RF: 0 metoprolol tartrate 25 mg tablet 12.5 mg PO QAM RF: 0 calcium carbonate [Calcium Antacid] 200 mg calcium (500 mg) tablet,chewable 500 mg PO BID RF: 0 docusate sodium [Colace] 100 mg Capsule 100 mg PO BID Qty: 0 RF: 0 Changed lisinopril [Zestril] 5 mg tablet 2.5 mg PO QAM Qty: 0 RF: 0 Discontinued aspirin [Aspirin Low Dose] 81 mg Tablet,Delayed Release (Dr/Ec) 81 mg PO QAM RF: 0 polyethylene glycol 3350 [Miralax] 17 gram/dose Powder 17 g PO TUTHSA RF: 0 Discharge Orders: Discharge Order (Routine); Ordered 12/10/20 Ordered By: Jeramy Eller Admission Data Admit Date/Time: 11/29/20 17:13 Attending Provider: Jeramy Eller Admit Provider: Missy Izaguirre Primary Care Provider: Yanni Ferreira Other Providers: Yanni Ferreira ; Missy Izaguirre ; Jia Blackmon ; Judah Valencia ; Kal Tate ; Earle Thornton Other Interventions: Discharge Summary Assessment (RN) Last Done: 12/10/20 12:33
[2020-12-10] MEDS ORDERED: POT PHOSPHATE MONOBASIC W/ SOD TAB PO SCH (13:00)
--- NOTE | 2020-12-20 15:25 | Coding Query ---
CODING QUERY To promote full compliance with coding requirements relating to patient care, provider participation is requested in all cases of valve setter uncertainty. Please assist us with the question(s) below: Coding Question(s): Pt admitted with rectal bleed. Colonoscopy = rectal ulcer & polyps . Please document, if known or suspected, the etiology of the rectal bleed. Thank you. Aba Aiken [facility] Physician's Response(s): GI likely due to hemorrhoids, polyps, Rectal ulcer Principal Diagnosis: "that condition established after study, to be chiefly responsible for occasioning the admission of the patient to the hospital for care." Co-Existing Principal Diagnosis: "when two or more diagnoses equally meet the criteria for principal diagnosis as determined by the circumstances of admission, diagnostic work up, and/or therapy provided, and the Alphabetic Index, Tabular List, or another coding guideline does not provide sequencing direction, any one of the diagnoses may be sequenced first." "When the physician has documented what appears to be a current diagnosis in the body of the record, but has not included the diagnosis in the final diagnostic statement, the physician should be asked whether the diagnosis should be added." ([facility] 2 QTR90. p3-4) SARAH BETH
--- NOTE | 2020-12-20 15:28 | Coding Query ---
CODING QUERY To promote full compliance with coding requirements relating to patient care, provider participation is requested in all cases of machine filler shredder uncertainty. Please assist us with the question(s) below: Coding Question(s): Pt admitted for rectal bleed. Developed a period of unresponsiveness. Prior history of MCA stroke with residual hemiparesis. Discharge Summary documented acute stroke. Please check below the phrase that describes the stroke. Thanks for your help. Aba Aiken [facility] Physician's Response(s): ___x Patient had an acute stroke, present after admission Patient did not have a Stroke Cannot clinically correlate if patient had a stroek Other/ Please document: Principal Diagnosis: "that condition established after study, to be chiefly responsible for occasioning the admission of the patient to the hospital for care." Co-Existing Principal Diagnosis: "when two or more diagnoses equally meet the criteria for principal diagnosis as determined by the circumstances of admission, diagnostic work up, and/or therapy provided, and the Alphabetic Index, Tabular List, or another coding guideline does not provide sequencing direction, any one of the diagnoses may be sequenced first." "When the physician has documented what appears to be a current diagnosis in the body of the record, but has not included the diagnosis in the final diagnostic statement, the physician should be asked whether the diagnosis should be added." ([facility] 2 QTR90. p3-4) SARAH BETH
--- NOTE | 2020-12-20 15:32 | Coding Query ---
CODING QUERY To promote full compliance with coding requirements relating to patient care, provider participation is requested in all cases of advertising rep uncertainty. Please assist us with the question(s) below: Coding Question(s): Patient admitted with rectal bleeding. Developed a period of unresponsiveness. 12/06 progress note mentions aspiration pneumonia. Please check below the phrase that describes the aspiration pneumonia. Thanks for your help.. PRINCESS May[facility] Physician's Response(s): ___x___ Patient was treated for aspiration pneumonia, not present on admission Patient did not have aspiration pneumonia Cannot clinically correlate if patient had aspiration [place] Other: Please document: Principal Diagnosis: "that condition established after study, to be chiefly responsible for occasioning the admission of the patient to the hospital for care." Co-Existing Principal Diagnosis: "when two or more diagnoses equally meet the criteria for principal diagnosis as determined by the circumstances of admission, diagnostic work up, and/or therapy provided, and the Alphabetic Index, Tabular List, or another coding guideline does not provide sequencing direction, any one of the diagnoses may be sequenced first." "When the physician has documented what appears to be a current diagnosis in the body of the record, but has not included the diagnosis in the final diagnostic statement, the physician should be asked whether the diagnosis should be added." (Source [facility] 2 QTR90. p3-4) [email or web address]
== END 2020-12-10 13:28 | DRG 393 ==
LOC: 2S 07:33 → ED 07:33 → SUATTDRO 11:13 → 2S 13:37 → SUATTDRO 11-29 17:13 → 1E 12-06 16:06 → 2N 12-07 09:00
DX: D12.3 Benign neoplasm of transverse colon; I25.2 Old myocardial infarction; K64.9 Unspecified hemorrhoids; D12.5 Benign neoplasm of sigmoid colon; G31.84 Mild cognitive impairment of uncertain or unknown etiology; K62.5 Hemorrhage of anus and rectum; Y92.239 Unspecified place in hospital as the place of occurrence of the external cause; I69.354 Hemiplegia and 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-dominant side; R31.9 Hematuria, unspecified; I11.0 Hypertensive heart disease with heart failure; I25.5 Ischemic cardiomyopathy; J44.9 Chronic obstructive pulmonary disease, unspecified; I50.22 Chronic systolic (congestive) heart failure; I63.9 Cerebral infarction, unspecified; I48.0 Paroxysmal atrial fibrillation; E78.5 Hyperlipidemia, unspecified; Z79.01 Long term (current) use of anticoagulants; Z87.891 Personal history of nicotine dependence; N40.0 Benign prostatic hyperplasia without lower urinary tract symptoms; J98.11 Atelectasis; Z79.02 Long term (current) use of antithrombotics/antiplatelets; J69.0 Pneumonitis due to inhalation of food and vomit; I25.10 Atherosclerotic heart disease of native coronary artery without angina pectoris; R41.82 Altered mental status, unspecified; D64.9 Anemia, unspecified; E43 Unspecified severe protein-calorie malnutrition; J96.01 Acute respiratory failure with hypoxia; K57.90 Diverticulosis of intestine, part unspecified, without perforation or abscess without bleeding; K62.6 Ulcer of anus and rectum; Z95.5 Presence of coronary angioplasty implant and graft

== ENCOUNTER 2021-03-01 11:58 | Observation (INO) ==
[2021-03-01 12:31] LABS: Basophils # (auto) 0.01 K/uL (0-0.2); Basophils % (auto) 0.1 %; Eosinophils # (auto) 0.02 K/uL (0-0.5); Eosinophils % (auto) 0.2 %; Hematocrit (blood only) 41.2 % (42-52); Hemoglobin 13.3 g/dL (14.0-18.0); Immature Granulocytes # (auto) 0.01 K/uL (0.00-0.02); Immature Granulocytes % (auto) 0.1 %; Lymphocytes # (auto) 0.57 K/uL (1.2-3.4); Lymphocytes % (auto) 6.1 %; Mean Corpuscular Hgb Conc 32.3 g/dL (32-36); Mean Corpuscular Volume 86.7 fL (80-100); Mean Platelet Volume 11.2 fL (7.4-10.4); Monocytes # (auto) 0.23 K/uL (0.11-0.59); Monocytes % (auto) 2.5 %; Platelet Count 195 K/uL (130-400); RDW Coefficient of Variation 18.3 % (11.5-14.5); RDW Standard Deviation 59.1 fL (36.4-46.3); Red Blood Count 4.75 M/uL (4.7-6.1); White Blood Count 9.34 K/uL (4.8-10.8)
[2021-03-01 12:36] LABS: Prothrombin Time 10.6 Seconds (9.0-12.0)
[2021-03-01 12:48] LABS: Albumin Level 3.5 gm/dl (3.4-5.0); BUN Creatinine Ratio 11.6 (10-20); Calcium 9.3 mg/dl (8.5-10.1); Est GFR (African American) 68.2 ml/min; Est GFR (Non-African American) 58.9 ml/min; Magnesium 2.1 mg/dl (1.8-2.4); Potassium 3.8 mmol/L (3.5-5.1)
--- NOTE | 2021-03-01 12:57 | Emergency Department Note ---
Impression & Plan Hypoxia, Aspiration into lower respiratory tract, Episode of unresponsiveness ED Provider Note Provider: Don Daniel MD DATE OF SERVICE: 03/01/2021 CHIEF COMPLAINT: Change in mental status, hypoxia HISTORY OF PRESENT ILLNESS: Patient is a 70-year-old gentleman history of prior CAD, CVA with left-sided weakness, chronic anticoagulation for A. fib on Eliquis, GI bleed, & COPD presenting via ambulance from his nursing facility today after being found minimally responsive at his facility with labored breathing and tachypnea. Patient was noted to be hypoxic on room air at 84% per the report and could not initially be awakened. EMS reports that for them the patient could be awakened and was minimally conversational with them with left- sided weakness/hemiplegia was reported baseline. Patient himself upon arrival complains of some mid back pain to some pain behind his right shoulder at times. He is not a good historian however otherwise and it is difficult to get much of a history from him at this time. Patient is requiring some oxygen on room air he is hypoxic in the mid 80s. No trauma has been reported. REVIEW OF SYSTEMS: Limited secondary to his mental status PAST MEDICAL HISTORY: As noted above MEDICATIONS: Reviewed records from his facility indicating Plavix, amiodarone, and Eliquis SOCIAL HISTORY: Currently resides at [facility] nursing [facility], , retired PHYSICAL EXAM: GENERAL: alert laying on his left side on the stretcher occasionally reposit ioning the blankets with his right arm complaining of some back pain. Patient unable to give me a good history however or answer direct questioning well Head: normocephalic and atraumatic EYES: No injection, discharge or icterus. NECK: Trachea midline. Supple. ENT: Mucous membranes pink and moist. LUNGS: Airway patent. No retractions. Breath sounds clear on the right but somewhat diminished on the left with occasional expiratory wheeze HEART: Regular rate and rhythm. No chest wall tenderness ABDOMEN: Soft and non-tender, without guarding or rebound. SKIN: Acyanotic, warm, dry, with some occasional scattered bruising on the right upper extremity of various ages of healing. EXTREMITIES: Muscle wasting of the left lower leg and arm with some contracture noted. No significant edema of the bilateral lower legs appreciated. NEUROLOGICAL: Patient intermittently answering some questions but mainly just complaining of some back pain. Significant left hemiplegia is noted but this is reported to be at baseline. EK bpm sinus rhythm occasional PVC. No acute ST segment elevation with significant baseline artifact noted. QTc 502. Question some slight lateral ST depression. CONTINUOUS CARDIAC MONITORING: was ordered and showed a heart rate of 60s to 90s bpm in sinus rhythm with occasional PVC Patient's laboratory studies and imaging reviewed. Differential includes Infection, dehydration, metabolic abnormality, hypo/hyperglycemia, electrolyte disturbance, anemia, hypoxia, cardiac sources, intracerebral event, toxicologic, neurologic, as well as other pathologies. IMPRESSION/MEDICAL DECISION MAKING: Reviewed medical records from the facility as well as recent hospitalization several months ago. Anticoagulated history of GI bleed as well as stroke. Lower suspicion for PE but given his hypoxia and complaints of pain in the back on mild oxygen supplementation will complete CT imaging of the head, chest, abdomen pelvis still for possible intracranial bleed or other abnormality. Covid testing to be completed. Basic labs and lactate and cultures are sent. VBG ordered. Patient did vomit while in CT scanner here. Given some Zofran. Blood work here fairly reassuring without significant leukocytosis and no severe anemia noted. VBG without truly significant abnormality. No evidence of significant electrolyte abnormality or renal dysfunction. Lactate is noted elevated to 3.6. Cautiously given small amount of additional lactated Ringer's. Repeat lactate is improving I believe likely related to hypoxia earlier. Troponin detectable but not abnormal. Procalcitonin is undetectably low. Doubt sepsis. TSH within normal notes Covid testing negative. Patient again does require some oxygen supplementation which appears to be new. CT the head without acute findings per radiology. CT the abdomen pelvis shows likely an enlarged prostate but no other significant acute intra-abdominal process. CTA of the chest without evidence of PE although limited minimal subsegmental branches due to motion artifact this is unlikely given his anticoagulation. Advanced emphysema is noted with small left pleural effusion with atelectasis versus infectious versus inflammatory pneumonitis in the left lung. Again he did vomit here and do question if he aspirated and this is the cause of some of his hypoxia. He is dependent on that side and given previous stroke lays on there. Does not appear septic and will cover with Unasyn at this time. With his new oxygen requirement in the evidently of minimal responsiveness earlier feel further observation here at the hospital is prudent. The hospitalist was contacted. 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) GIB (gastrointestinal bleeding) Hematuria History of CVA (cerebrovascular accident) HTN (hypertension) Hypercholesterolemia Osteoporosis Pulmonary embolism Rectal bleeding Renal calculi ST elevation myocardial infarction (STEMI) Tobacco use UTI (urinary tract infection) Surgical History History of hernia repair Presence of stent in coronary artery S/P drug eluting coronary stent placement S/P PTCA (percutaneous transluminal coronary angioplasty) Family History Denies family history of Ovarian cancer Prostate cancer Myocardial infarction Breast cancer Colorectal cancer Social History Smoking Status: Former smoker Tobacco Type: Cigarettes Hx Alcohol Use: No Hx Substance Use: No Preferred Language: Swedish Communication Ability: Impaired Accounting Reconciliation Clerk Required: No Beliefs That Will Affect Care: None marital status: Current Living Situation: Jail Current Living Situation Comment: [facility] (for rehab per pt) current occupational status: employed and retired current occupation: [employer] Feels Safe at Home: Yes Dental Care, Regularly: No Physical Activity Frequency: Does not Exercise Assistive Devices: Oxygen - Continuous Allergies Allergies Allergy/AdvReac Type Severity Reaction Status Date / Time No Known Allergies Allergy Verified 03/01/21 15:04 Home Meds Home Medications Medication Instructions Recorded Confirmed multivitamin (Daily Multi-Vitamin) 1 tab PO QAM 11/03/18 03/01/21 acetaminophen 325 mg tablet 650 mg PO Q4H PRN 09/15/20 03/01/21 (Tylenol) amiodarone 200 mg tablet (Pacerone) 200 mg PO QAM 09/15/20 03/01/21 apixaban 5 mg tablet (Eliquis) 5 mg PO BID 09/15/20 03/01/21 atorvastatin 80 mg tablet (Lipitor) 80 mg PO QAM 09/15/20 03/01/21 chlorhexidine gluconate 0.12 % 1 applic PO TID 09/15/20 03/01/21 mouthwash (Peridex) cholecalciferol (vitamin D3) 25 25 mcg PO QAM 09/15/20 03/01/21 mcg (1,000 unit) capsule (Vitamin D3) clopidogrel 75 mg tablet (Plavix) 75 mg PO QAM 09/15/20 03/01/21 finasteride 5 mg tablet (Proscar) 5 mg PO QAM 09/15/20 03/01/21 fluoxetine 20 mg capsule (Prozac) 20 mg PO QAM 09/15/20 03/01/21 gabapentin 100 mg capsule 100 mg PO TID 09/15/20 03/01/21 (Neurontin) metoprolol tartrate 25 mg tablet 12.5 mg PO QAM 09/15/20 03/01/21 ropinirole 0.5 mg tablet 0.5 mg PO QID 09/15/20 03/01/21 tamsulosin 0.4 mg capsule (Flomax) 0.4 mg PO QDD 09/15/20 03/01/21 calcium carbonate 200 mg calcium 500 mg PO BID 11/28/20 03/01/21 (500 mg) chewable tablet (Calcium Antacid) ferrous sulfate 325 mg (65 mg 325 mg PO BID 03/01/21 03/01/21 iron) tablet lisinopril 2.5 mg tablet 2.5 mg PO QAM 03/01/21 03/01/21 sodium di- and 1 tab PO QID 03/01/21 03/01/21 monophosphate-potassium phos monobasic 250 mg tablet (Phospha 250 Neutral) Previous Rx's Medication Instructions Recorded docusate sodium 100 mg capsule 100 mg PO BID #0 cap 12/10/20 (Colace) pantoprazole 40 mg tablet,delayed 40 mg PO BID #60 tab 12/10/20 release polyethylene glycol 3350 17 gram 17 g PO DAILY #30 ea 12/10/20 oral powder packet (Miralax) Results & Data (ED) Vital Signs Vital Signs - 24 hr 03/01/21 12:23 03/01/21 12:30 03/01/21 12:44 Temperature 36.6 C Temperature Source Oral Pulse Rate 92 H 79 Pulse Rate [Apical] Pulse Rate from SpO2 Sensor 81 Pulse Rhythm [Apical] Pulse Strength [Apical] Respiratory Rate 20 25 H Respiratory Effort / Characteristics Non-Labored Respiratory Depth Normal Respiratory Pattern Blood Pressure 152/116 H 157/80 H Blood Pressure [Right Radial Artery] Blood Pressure Mean 128 105 Blood Pressure Mean [Right Radial Artery] Blood Pressure Position Sitting Blood Pressure Position [Right Radial Artery] Pulse Oximetry 88 L 93 92 Oxygen Delivery Method Room Air Nasal Cannula Nasal Cannula Oxygen Flow Rate 2 2 Sepsis Recent Fever Within 48 Hours No Sepsis New/Unexplained Change in Mental Status N/A Sepsis Action Taken by Nursing No Action Required 03/01/21 13:21 03/01/21 13:30 03/01/21 13:51 Temperature 36.6 C Temperature Source Oral Pulse Rate 82 Pulse Rate [Apical] 78 76 Pulse Rate from SpO2 Sensor 101 H 82 Pulse Rhythm [Apical] Pulse Strength [Apical] Respiratory Rate 22 18 Respiratory Effort / Characteristics Non-Labored Non-Labored Respiratory Depth Normal Normal Respiratory Pattern Regular Regular Blood Pressure 163/60 H Blood Pressure [Right Radial Artery] 163/60 H 163/63 H Blood Pressure Mean 94 Blood Pressure Mean [Right Radial Artery] 94 96 Blood Pressure Position Blood Pressure Position [Right Radial Artery] Pulse Oximetry 88 L 92 96 Oxygen Delivery Method Room Air Nasal Cannula Oxygen Flow Rate 2 2 2 Sepsis Recent Fever Within 48 Hours Sepsis New/Unexplained Change in Mental Status Sepsis Action Taken by Nursing 03/01/21 14:00 03/01/21 14:30 03/01/21 14:39 Temperature Temperature Source Pulse Rate 72 73 Pulse Rate [Apical] 71 Pulse Rate from SpO2 Sensor 72 73 Pulse Rhythm [Apical] Pulse Strength [Apical] Respiratory Rate 20 18 18 Respiratory Effort / Characteristics Non-Labored Spontaneous Respiratory Depth Normal Respiratory Pattern Blood Pressure 135/64 127/64 Blood Pressure [Right Radial Artery] 127/64 Blood Pressure Mean 87 85 Blood Pressure Mean [Right Radial Artery] 85 Blood Pressure Position Blood Pressure Position [Right Radial Artery] Semi-fowlers Pulse Oximetry 96 97 96 Oxygen Delivery Method Nasal Cannula Oxygen Flow Rate 2 2 2 Sepsis Recent Fever Within 48 Hours Sepsis New/Unexplained Change in Mental Status Sepsis Action Taken by Nursing 03/01/21 15:00 03/01/21 15:30 03/01/21 16:00 Temperature Temperature Source Pulse Rate 89 77 Pulse Rate [Apical] Pulse Rate from SpO2 Sensor 88 76 Pulse Rhythm [Apical] Pulse Strength [Apical] Respiratory Rate 14 22 Respiratory Effort / Characteristics Respiratory Depth Respiratory Pattern Blood Pressure 115/95 132/59 L 132/62 Blood Pressure [Right Radial Artery] Blood Pressure Mean 101 83 85 Blood Pressure Mean [Right Radial Artery] Blood Pressure Position Blood Pressure Position [Right Radial Artery] Pulse Oximetry 94 95 Oxygen Delivery Method Oxygen Flow Rate 2 2 Sepsis Recent Fever Within 48 Hours Sepsis New/Unexplained Change in Mental Status Sepsis Action Taken by Nursing 03/01/21 16:30 03/01/21 17:01 03/01/21 17:14 Temperature Temperature Source Pulse Rate 68 Pulse Rate [Apical] 71 Pulse Rate from SpO2 Sensor 67 Pulse Rhythm [Apical] Pulse Strength [Apical] Respiratory Rate 22 18 Respiratory Effort / Characteristics Non-Labored Respiratory Depth Normal Respiratory Pattern Regular Blood Pressure 121/55 L Blood Pressure [Right Radial Artery] 142/68 H Blood Pressure Mean 77 Blood Pressure Mean [Right Radial Artery] 92 Blood Pressure Position Blood Pressure Position [Right Radial Artery] Lying Pulse Oximetry 96 89 L 95 Oxygen Delivery Method Nasal Cannula Oxygen Flow Rate 2 2 3 Sepsis Recent Fever Within 48 Hours Sepsis New/Unexplained Change in Mental Status Sepsis Action Taken by Nursing 03/01/21 17:30 03/01/21 18:51 Temperature 37 C Temperature Source Oral Pulse Rate 70 Pulse Rate [Apical] 77 Pulse Rate from SpO2 Sensor 69 Pulse Rhythm [Apical] Regular Pulse Strength [Apical] Normal Respiratory Rate 19 17 Respiratory Effort / Characteristics Non-Labored Respiratory Depth Normal Respiratory Pattern Regular Blood Pressure 142/68 H Blood Pressure [Right Radial Artery] 132/66 Blood Pressure Mean 92 Blood Pressure Mean [Right Radial Artery] 88 Blood Pressure Position Blood Pressure Position [Right Radial Artery] Lying Pulse Oximetry 92 95 Oxygen Delivery Method Room Air Oxygen Flow Rate 2 2 Sepsis Recent Fever Within 48 Hours Sepsis New/Unexplained Change in Mental Status Sepsis Action Taken by Nursing Laboratory Data Result diagrams: 03/01/21 12:15 03/01/21 12:15 Lab Results 03/01/21 03/01/21 03/01/21 Range/Units 12:15 12:15 12:15 WBC 9.34 (4.8-10.8) K/uL RBC 4.75 (4.7-6.1) M/uL Hgb 13.3 L (14.0-18.0) g/dL Hct 41.2 L (42-52) % MCV 86.7 (80-100) fL MCH 28.0 (25-34) pg MCHC 32.3 (32-36) g/dL RDW Std Deviation 59.1 H (36.4-46.3) fL RDW Coeff of Markell 18.3 H (11.5-14.5) % Plt Count 195 (130-400) K/uL MPV 11.2 H (7.4-10.4) fL Immature Gran % (Auto) 0.1 % Neut % (Auto) 91.0 % Lymph % (Auto) 6.1 % Roseau % (Auto) 2.5 % Eos % (Auto) 0.2 % Baso % (Auto) 0.1 % Neut # (Auto) 8.50 H (1.4-6.5) K/uL Lymph # (Auto) 0.57 L (1.2-3.4) K/uL [place] # (Auto) 0.23 (0.11-0.59) K/uL Eos # (Auto) 0.02 (0-0.5) K/uL Baso # (Auto) 0.01 (0-0.2) K/uL Immature Gran # (Auto) 0.01 (0.00-0.02) K/uL PT 10.6 (9.0-12.0) Seconds INR 1.0 (0.9-1.1) VBG pH (7.36-7.41) VBG pCO2 (38-50) mmHg VBG pO2 mmHg VBG HCO3 mmol/L VBG O2 Saturation % VBG Base Excess mEq/L Barometric Pressure mm/Hg Sodium 142 (136-145) mmol/L Potassium 3.8 (3.5-5.1) mmol/L Chloride 112 H (98-107) mmol/L Carbon Dioxide 22 (21-32) mmol/L Anion Gap 8.0 (3-11) BUN 14 (7-18) mg/dl Creatinine 1.22 (0.6-1.4) mg/dl Est Cr Clr Drug Dosing 58.0 ml/min Est GFR ( Amer) 68.2 ml/min Est GFR (Non-Af Amer) 58.9 ml/min BUN/Creatinine Ratio 11.6 (10-20) Glucose 150 H (70-99) mg/dl Lactate (0.4-2.0) mmol/L Calcium 9.3 (8.5-10.1) mg/dl Magnesium 2.1 (1.8-2.4) mg/dl Total Bilirubin 1.1 H (0.2-1) mg/dl AST 16 (15-37) U/L ALT 25 (12-78) U/L Alkaline Phosphatase 137 H (45-117) U/L Troponin I 0.027 (0-0.045) ng/ml Total Protein 6.6 (6.4-8.2) gm/dl Albumin 3.5 (3.4-5.0) gm/dl Globulin 3.1 (2.5-4.0) gm/dl Albumin/Globulin Ratio 1.1 (0.9-2) Procalcitonin (0-0.5) ng/ml TSH 1.200 (0.300-4.500) uIu/ml COVID-19 Eval Order SARS-CoV-2 (PCR) (Negative) 03/01/21 03/01/21 03/01/21 Range/Units 12:15 12:30 12:30 WBC (4.8-10.8) K/uL RBC (4.7-6.1) M/uL Hgb (14.0-18.0) g/dL Hct (42-52) % MCV (80-100) fL MCH (25-34) pg MCHC (32-36) g/dL RDW Std Deviation (36.4-46.3) fL RDW Coeff of Markell (11.5-14.5) % Plt Count (130-400) K/uL MPV (7.4-10.4) fL Immature Gran % (Auto) % Neut % (Auto) % Lymph % (Auto) % Rose[place] % (Auto) % Eos % (Auto) % Baso % (Auto) % Neut # (Auto) (1.4-6.5) K/uL Lymph # (Auto) (1.2-3.4) K/uL [place] # (Auto) (0.11-0.59) K/uL Eos # (Auto) (0-0.5) K/uL Baso # (Auto) (0-0.2) K/uL Immature Gran # (Auto) (0.00-0.02) K/uL PT (9.0-12.0) Seconds INR (0.9-1.1) VBG pH (7.36-7.41) VBG pCO2 (38-50) mmHg VBG pO2 mmHg VBG HCO3 mmol/L VBG O2 Saturation % VBG Base Excess mEq/L Barometric Pressure mm/Hg Sodium (136-145) mmol/L Potassium (3.5-5.1) mmol/L Chloride (98-107) mmol/L Carbon Dioxide (21-32) mmol/L Anion Gap (3-11) BUN (7-18) mg/dl Creatinine (0.6-1.4) mg/dl Est Cr Clr Drug Dosing ml/min Est GFR ( Amer) ml/min Est GFR (Non-Af Amer) ml/min BUN/Creatinine Ratio (10-20) Glucose (70-99) mg/dl Lactate (0.4-2.0) mmol/L Calcium (8.5-10.1) mg/dl Magnesium (1.8-2.4) mg/dl Total Bilirubin (0.2-1) mg/dl AST (15-37) U/L ALT (12-78) U/L Alkaline Phosphatase (45-117) U/L Troponin I (0-0.045) ng/ml Total Protein (6.4-8.2) gm/dl Albumin (3.4-5.0) gm/dl Globulin (2.5-4.0) gm/dl Albumin/Globulin Ratio (0.9-2) Procalcitonin < 0.05 (0-0.5) ng/ml TSH (0.300-4.500) uIu/ml COVID-19 Eval Order Covid19 at [facility] SARS-CoV-2 (PCR) NEGATIVE (Negative) 03/01/21 03/01/21 03/01/21 Range/Units 12:42 12:42 14:26 WBC (4.8-10.8) K/uL RBC (4.7-6.1) M/uL Hgb (14.0-18.0) g/dL Hct (42-52) % MCV (80-100) fL MCH (25-34) pg MCHC (32-36) g/dL RDW Std Deviation (36.4-46.3) fL RDW Coeff of Markell (11.5-14.5) % Plt Count (130-400) K/uL MPV (7.4-10.4) fL Immature Gran % (Auto) % Neut % (Auto) % Lymph % (Auto) % [place] % (Auto) % Eos % (Auto) % Baso % (Auto) % Neut # (Auto) (1.4-6.5) K/uL Lymph # (Auto) (1.2-3.4) K/uL [place] # (Auto) (0.11-0.59) K/uL Eos # (Auto) (0-0.5) K/uL Baso # (Auto) (0-0.2) K/uL Immature Gran # (Auto) (0.00-0.02) K/uL PT (9.0-12.0) Seconds INR (0.9-1.1) VBG pH 7.43 H (7.36-7.41) VBG pCO2 37 L (38-50) mmHg VBG pO2 34 mmHg VBG HCO3 24 mmol/L VBG O2 Saturation 63.5 % VBG Base Excess -0.1 mEq/L Barometric Pressure 730.4 mm/Hg Sodium (136-145) mmol/L Potassium (3.5-5.1) mmol/L Chloride (98-107) mmol/L Carbon Dioxide (21-32) mmol/L Anion Gap (3-11) BUN (7-18) mg/dl Creatinine (0.6-1.4) mg/dl Est Cr Clr Drug Dosing ml/min Est GFR ( Amer) ml/min Est GFR (Non-Af Amer) ml/min BUN/Creatinine Ratio (10-20) Glucose (70-99) mg/dl Lactate 3.6 H* 2.3 H* (0.4-2.0) mmol/L Calcium (8.5-10.1) mg/dl Magnesium (1.8-2.4) mg/dl Total Bilirubin (0.2-1) mg/dl AST (15-37) U/L ALT (12-78) U/L Alkaline Phosphatase (45-117) U/L Troponin I (0-0.045) ng/ml Total Protein (6.4-8.2) gm/dl Albumin (3.4-5.0) gm/dl Globulin (2.5-4.0) gm/dl Albumin/Globulin Ratio (0.9-2) Procalcitonin (0-0.5) ng/ml TSH (0.300-4.500) uIu/ml COVID-19 Eval Order SARS-CoV-2 (PCR) (Negative) Administered Medications Discontinued Medications Furosemide (Furosemide 40 Mg/4 Ml Vial) 20 mg IV NOW STA Stop: 03/01/21 17:03 Last Admin: 03/01/21 17:41 Dose: 20 mg Documented by: [id number] Lactated Ringer's (Lr) 1,000 mls @ 999 mls/hr IV .Q1H1M ONE Stop: 03/01/21 14:36 Last Infusion: 03/01/21 15:24 Dose: 0 mls/hr Documented by: [id number] Admin: 03/01/21 13:56 Dose: 999 mls/hr Documented by: [id number] Ampicillin Sodium/Sulbactam Sodium 3,000 mg/ Sodium Chloride 108 mls @ 200 mls/hr IV NOW STA; Protocol Stop: 03/01/21 14:45 Last Infusion: 03/01/21 15:23 Dose: 0 mls/hr Documented by: [id number] Admin: 03/01/21 14:39 Dose: 200 mls/hr Documented by: [id number] Ioversol (Optiray 320 125ml) 109 ml IV ONCE ONE Stop: 03/01/21 13:18 Last Admin: 03/01/21 13:18 Dose: 109 ml Documented by: [id number] Ondansetron HCl (Ondansetron Inj 2 Mg/Ml 2 Ml Vial) 4 mg IV NOW STA Stop: 03/01/21 13:37 Last Admin: 03/01/21 13:56 Dose: 4 mg Documented by: [id number] Imaging Data Radiologist's Impression: Chest X-Ray 03/01/21 00:00 XR chest 1V portable CLINICAL HISTORY: ILLNESS COMPARISON STUDY: Chest radiograph December 08, 2020. Chest CT performed earlier today. FINDINGS: There is a small left pleural effusion with left basilar opacity. No pneumothorax is present. There is underlying emphysema. Mild cardiomegaly is noted. There is subtle interstitial thickening. IMPRESSION: 1. Slight increase in a small left pleural effusion with left basilar opacity. 2. Subtle interstitial thickening. This favors pulmonary edema superimposed upon emphysema. ACT 112: Negative or not required by law. Electronically signed by: Bigg Rudolph M.D. 03/01/2021 2:[address] 03/01/21 12:20 CT SCAN OF THE BRAIN WITHOUT IV CONTRAST CLINICAL HISTORY: Change in mental status. Unresponsive. COMPARISON STUDY: CT of the brain dated 12/06/2020. TECHNIQUE: Unenhanced axial CT scan of the brain is performed from the vertex to the skull base. A dose lowering technique was utilized adhering to the principles of ALARA. The patient was scanned twice due to motion artifact. The examination is severely degraded by motion artifact. The patient was scanned 3 times in an effort to improve image quality. CT DOSE: 1919.58 mGy.cm FINDINGS: Brain parenchyma: Right MCA territory encephalomalacia is consistent with a remote infarct and unchanged. A small chronic lacunar infarct is also seen in the left parietal lobe. There are age-related involutional changes noting mild subcortical and periventricular microangiopathic change. Wallerian degeneration is noted in the right aspect of the zohaib. There is no hemorrhage, mass effect, or evidence of acute territorial ischemia by CT criteria. Caraballo-white matter differentiation is preserved. No extra-axial fluid collection is seen. Ventricles, sulci, cisterns: Prominent secondary to involutional change. Intracranial vasculature: There is atherosclerotic calcification of the cavernous carotid and vertebral arteries. Calvarium: Unremarkable. Sinuses and mastoids: The paranasal sinuses are clear. The mastoid air cells are well pneumatized. Orbits: The bony orbits are grossly intact. There are bilateral ocular lens implants. IMPRESSION: 1. There is no hemorrhage, mass effect, or evidence of acute territorial ischemia by CT criteria noting a significantly motion compromised examination. 2. Remote infarcts are unchanged. ACT 112: Negative or not required by law.' Electronically signed by: Driss Villalba M.D. 03/01/2021 1:17 PM Abdomen/Pelvis CT 03/01/21 12:23 CT OF THE ABDOMEN AND PELVIS WITH CONTRAST CLINICAL HISTORY: hypoxia on eliquis, hx aspiration, back pain COMPARISON STUDY: CT of the abdomen and pelvis November 28, 2020 TECHNIQUE: Following IV administration of 109 mL of Optiray, axial images of the abdomen and pelvis were obtained from the lung bases to the proximal femurs. Images were reviewed in the axial, sagittal, and coronal planes. IV contrast was administered without complication. Automated exposure control was utilized for the study. A dose lowering technique was utilized adhering to the principles of ALARA. FINDINGS: Please note that the chest CT will be reported separately. This exam is compromised given difficulty positioning and motion artifact. No pneumatosis, free air or portal venous gas is present. Liver, spleen, adrenal glands, right kidney and pancreas are grossly unremarkable. There is no biliary or pancreatic ductal dilatation. Left renal cyst is noted. There is a 4 mm left renal calculus. No ureteral calculi are identified. Multiple calculi present. A density within the base of the bladder likely reflects an enlarged prostate. This is unchanged. There is no evidence for a bowel obstruction. Large amount of stool within the rectum is noted. No hemoperitoneum is noted. There is no retroperitoneal hematoma. No acute fracture is identified within the visualized skeletal structures. Bilateral inguinal hernias are noted. IMPRESSION: 1. Exam compromised given motion artifact and difficulty positioning. 2. No acute process within the abdomen or pelvis. 3. Multiple bladder calculi. 4 mm left renal calculus. No ureteral calculi. 2. Density within the base of the bladder which likely reflects an enlarged p rostate. The bladder mass is considered considered much less likely. ACT 112: Negative or not required by law. Electronically signed by: Bigg Rudolph M.D. 03/01/2021 1:37 PM Chest CTA 03/01/21 12:23 CT ANGIOGRAM OF THE CHEST CLINICAL HISTORY: Hypoxia. COMPARISON STUDY: Chest x-ray dated 12/08/2020. Chest CT dated 12/06/2020. TECHNIQUE: Following the IV administration of 109 cc of Optiray 320, CT angiogram of the chest was performed from the upper abdomen to the thoracic inlet utilizing the pulmonary embolus protocol. Images are reviewed in the axial, sagittal, and coronal planes. 3-D MIPS images are created and assessed. IV contrast was administered without complication. A dose lowering technique was utilized adhering to the principles of ALARA. The examination is severely degraded by suboptimal positioning within the CT gantry, motion artifact, and streak artifact from the arms which could not elevated above the chest. CT DOSE: 1079.21 mGy.cm FINDINGS: Thyroid: Imaged portions of the thyroid gland are normal in size and attenuation. Thoracic aorta: There is atherosclerotic calcification of the thoracic aorta, which is normal in caliber and demonstrates standard 3-vessel arch anatomy. No dissection is seen. Pulmonary vasculature: The pulmonary trunk is normal in caliber. There are no filling defects identified in main main or lobar branches to suggest central pulmonary embolus. The segmental and subsegmental branches cannot be evaluated due to severe motion artifact. Heart: The heart is top normal in size and without pericardial effusion. Lungs and pleural spaces: Evaluation of the lung parenchyma is severely degraded by motion artifact. Advanced emphysematous change is noted. The trachea and central airways appear clear. There is a small left pleural effusion with dependent consolidation throughout the left lung. Segmental atelectasis is sugge sted in the lingula. The right lung appears clear noting basilar scarring/atelectasis. Mediastinum: There is no mediastinal lymphadenopathy. Meghan: Clear. Axillae: There is no axillary lymphadenopathy. Upper abdomen: There are at least 3 nonobstructing left renal calculi which measure up to 4 mm. A 2 cm cyst is seen in the upper pole of the left kidney. There is a tiny hiatal hernia. Skeletal structures: The skeletal structures are osteopenic. Degenerative change and kyphoscoliosis is noted in the thoracic spine. Arthritic change is seen in the shoulders. No lytic or blastic bony lesions are seen. IMPRESSION: 1. Severely streak and motion degraded examination. 2. There is no evidence of central pulmonary embolus in the main or lobar pulmonary arteries. The segmental and subsegmental branches cannot be evaluated due to severe motion artifact. 3. Advanced emphysema. 4. There is a small left pleural effusion with dependent consolidation throughout the left lung. This could represent atelectasis versus an infectious /inflammatory pneumonitis and clinical correlation will be required. 5. Left-sided nephrolithiasis. 6. Additional findings as above. ACT 112: Negative or not required by law. Electronically signed by: Driss Villalba M.D. 03/01/2021 1:58 PM Discharge Plan Visit Data Chief Complaint: Illness Stated Complaint: PERIOD OF UNRESP. ED Provider: Don Daniel Discharge Problem: Hypoxia, Aspiration into lower respiratory tract, Episode of unresponsiveness Patient Disposition: Being Evaluated by Hospitalist Discharge Instructions Interventions: ED Discharge Assessment Last Done: 03/01/21 18:53 Forms Stand Alone Forms: My [facility] Prescriptions Prescriptions: No Action multivitamin [Daily Multi-Vitamin] tablet 1 tab PO QAM RF: 0 acetaminophen [Tylenol] 325 mg Tablet 650 mg PO Q4H PRN (Reason: TEMP >100/PAIN) RF: 0 amiodarone [Pacerone] 200 mg tablet 200 mg PO QAM RF: 0 tamsulosin [Flomax] 0.4 mg capsule 0.4 mg PO QDD RF: 0 ropinirole 0.5 mg tablet 0.5 mg PO QID RF: 0 gabapentin [Neurontin] 100 mg capsule 100 mg PO TID RF: 0 fluoxetine [Prozac] 20 mg capsule 20 mg PO QAM RF: 0 finasteride [Proscar] 5 mg tablet 5 mg PO QAM RF: 0 cholecalciferol (vitamin D3) [Vitamin D3] 25 mcg (1,000 unit) capsule 25 mcg PO QAM RF: 0 chlorhexidine gluconate [Peridex] 0.12 % mouthwash 1 applic PO TID RF: 0 Eliquis 5 mg tablet 5 mg PO BID RF: 0 atorvastatin [Lipitor] 80 mg tablet 80 mg PO QAM RF: 0 clopidogrel [Plavix] 75 mg tablet 75 mg PO QAM RF: 0 metoprolol tartrate 25 mg tablet 12.5 mg PO QAM RF: 0 calcium carbonate [Calcium Antacid] 200 mg calcium (500 mg) tablet,chewable 500 mg PO BID RF: 0 polyethylene glycol 3350 [Miralax] 17 gram Powder In Packet 17 g PO DAILY Qty: 30 RF: 0 pantoprazole 40 mg Tablet,Delayed Release (Dr/Ec) 40 mg PO BID Qty: 60 RF: 1 docusate sodium [Colace] 100 mg Capsule 100 mg PO BID Qty: 0 RF: 0 ferrous sulfate 325 mg (65 mg iron) Tablet 325 mg PO BID RF: 0 Phospha 250 Neutral 250 mg Tablet 1 tab PO QID RF: 0 lisinopril 2.5 mg Tablet 2.5 mg PO QAM RF: 0 Referrals Referrals: Adarsh Connolly MD [Physician] - Discharge Problem: Aspiration into lower respiratory tract Qualifiers: Encounter type: initial encounter Qualified Code(s): T17.800A - Unspecified foreign body in other parts of respiratory tract causing asphyxiation, initial encounter
[2021-03-01 12:59] LABS: Albumin Globulin Ratio 1.1 (0.9-2); Bilirubin,Total 1.1 mg/dl (0.2-1); Globulin 3.1 gm/dl (2.5-4.0); Thyroid Stimulating Hormone 1.2 uIu/ml (0.300-4.500); Total Protein 6.6 gm/dl (6.4-8.2); Troponin I 0.027 ng/ml (0-0.045)
[2021-03-01 13:17] LABS: Base Excess VBG -0.1 mEq/L; Oxygen Saturation VBG 63.5 %; pH VBG 7.43 (7.36-7.41)
[2021-03-01] MEDS ORDERED: OPTIRAY 320 125ml IV ONE (13:17)
--- NOTE | 2021-03-01 13:18 | CT Scan Report ---
CT SCAN OF THE BRAIN WITHOUT IV CONTRAST CLINICAL HISTORY: Change in mental status. Unresponsive. COMPARISON STUDY: CT of the brain dated 12/06/2020. TECHNIQUE: Unenhanced axial CT scan of the brain is performed from the vertex to the skull base. A do se lowering technique was utilized adhering to the principles of ALARA. The patient was scanned twice due to motion artifact. The examination is severely degraded by motion artifact. The patient was sca nned 3 times in an effort to improve image quality. CT DOSE: 1919.58 mGy.cm FINDINGS: Brain parenchyma: Right MCA territory encephalomalacia is consistent with a remote infarct and unchan ged. A small chronic lacunar infarct is also seen in the left parietal lobe. There are age-related in volutional changes noting mild subcortical and periventricular microangiopathic change. Wallerian de generation is noted in the right aspect of the zohaib. There is no hemorrhage, mass effect, or evidence of acute territorial ischemia by CT criteria. Caraballo-white matter differentiation is preserved. No ext ra-axial fluid collection is seen. Ventricles, sulci, cisterns: Prominent secondary to involutional change. Intracranial vasculature: There is atherosclerotic calcification of the cavernous carotid and vertebr al arteries. Calvarium: Unremarkable. Sinuses and mastoids: The paranasal sinuses are clear. The mastoid air cells are well pneumatized. Orbits: The bony orbits are grossly intact. There are bilateral ocular lens implants. IMPRESSION: 1. There is no hemorrhage, mass effect, or evidence of acute territorial ischemia by CT criteria noti ng a significantly motion compromised examination. 2. Remote infarcts are unchanged. ACT 112: Negative or not required by law.' Electronically signed by: Driss Villalba M.D. 03/01/2021 1:17 PM
[2021-03-01] MEDS ORDERED: LACTATED RINGER'S 1,000 ML IV ONE (13:36)
[2021-03-01] MEDS ORDERED: ONDANSETRON INJ 2 MG/ML 2 ML VIAL IV STA (13:36)
--- NOTE | 2021-03-01 13:38 | CT Scan Report ---
CT OF THE ABDOMEN AND PELVIS WITH CONTRAST CLINICAL HISTORY: hypoxia on eliquis, hx aspiration, back pain COMPARISON STUDY: CT of the abdomen and pelvis November 28, 2020 TECHNIQUE: Following IV administration of 109 mL of Optiray, axial images of the abdomen and pelvis w ere obtained from the lung bases to the proximal femurs. Images were reviewed in the axial, sagittal, and coronal planes. IV contrast was administered without complication. Automated exposure control w as utilized for the study. A dose lowering technique was utilized adhering to the principles of [employer]. FINDINGS: Please note that the chest CT will be reported separately. This exam is compromised given d ifficulty positioning and motion artifact. No pneumatosis, free air or portal venous gas is present. Liver, spleen, adrenal glands, right kidney and pancreas are grossly unremarkable. There is no biliar y or pancreatic ductal dilatation. Left renal cyst is noted. There is a 4 mm left renal calculus. No ureteral calculi are identified. Multiple calculi present. A density within the base of the bladder l ikely reflects an enlarged prostate. This is unchanged. There is no evidence for a bowel obstruction. Large amount of stool within the rectum is noted. No hemoperitoneum is noted. There is no retroperit josé hematoma. No acute fracture is identified within the visualized skeletal structures. Bilateral inguinal hernias are noted. IMPRESSION: 1. Exam compromised given motion artifact and difficulty positioning. 2. No acute process within the abdomen or pelvis. 3. Multiple bladder calculi. 4 mm left renal calculus. No ureteral calculi. 2. Density within the base of the bladder which likely reflects an enlarged prostate. The bladder mas s is considered considered much less likely. ACT 112: Negative or not required by law. Electronically signed by: Bigg Rudolph M.D. 03/01/2021 1:37 PM
--- NOTE | 2021-03-01 14:00 | CT Scan Report ---
CT ANGIOGRAM OF THE CHEST CLINICAL HISTORY: Hypoxia. COMPARISON STUDY: Chest x-ray dated 12/08/2020. Chest CT dated 12/06/2020. TECHNIQUE: Following the IV administration of 109 cc of Optiray 320, CT angiogram of the chest was pe rformed from the upper abdomen to the thoracic inlet utilizing the pulmonary embolus protocol. Images are reviewed in the axial, sagittal, and coronal planes. 3-D MIPS images are created and assessed. I V contrast was administered without complication. A dose lowering technique was utilized adhering to the principles of ALARA. The examination is severely degraded by suboptimal positioning within the C T gantry, motion artifact, and streak artifact from the arms which could not elevated above the chest . CT DOSE: 1079.21 mGy.cm FINDINGS: Thyroid: Imaged portions of the thyroid gland are normal in size and attenuation. Thoracic aorta: There is atherosclerotic calcification of the thoracic aorta, which is normal in [place] thais and demonstrates standard 3-vessel arch anatomy. No dissection is seen. Pulmonary vasculature: The pulmonary trunk is normal in caliber. There are no filling defects identif ied in main main or lobar branches to suggest central pulmonary embolus. The segmental and subsegment al branches cannot be evaluated due to severe motion artifact. Heart: The heart is top normal in size and without pericardial effusion. Lungs and pleural spaces: Evaluation of the lung parenchyma is severely degraded by motion artifact. Advanced emphysematous change is noted. The trachea and central airways appear clear. There is a smal l left pleural effusion with dependent consolidation throughout the left lung. Segmental atelectasis is suggested in the lingula. The right lung appears clear noting basilar scarring/atelectasis. Mediastinum: There is no mediastinal lymphadenopathy. Meghan: Clear. Axillae: There is no axillary lymphadenopathy. Upper abdomen: There are at least 3 nonobstructing left renal calculi which measure up to 4 mm. A 2 c m cyst is seen in the upper pole of the left kidney. There is a tiny hiatal hernia. Skeletal structures: The skeletal structures are osteopenic. Degenerative change and kyphoscoliosis i s noted in the thoracic spine. Arthritic change is seen in the shoulders. No lytic or blastic bony le sions are seen. IMPRESSION: 1. Severely streak and motion degraded examination. 2. There is no evidence of central pulmonary embolus in the main or lobar pulmonary arteries. The seg mental and subsegmental branches cannot be evaluated due to severe motion artifact. 3. Advanced emphysema. 4. There is a small left pleural effusion with dependent consolidation throughout the left lung. This could represent atelectasis versus an infectious/inflammatory pneumonitis and clinical correlation w ill be required. 5. Left-sided nephrolithiasis. 6. Additional findings as above. ACT 112: Negative or not required by law. Electronically signed by: Driss Villalba M.D. 03/01/2021 1:58 PM
--- NOTE | 2021-03-01 14:03 | XRay Report ---
XR chest 1V portable CLINICAL HISTORY: ILLNESS COMPARISON STUDY: Chest radiograph December 08, 2020. Chest CT performed earlier today. FINDINGS: There is a small left pleural effusion with left basilar opacity. No pneumothorax is presen t. There is underlying emphysema. Mild cardiomegaly is noted. There is subtle interstitial thickening . IMPRESSION: 1. Slight increase in a small left pleural effusion with left basilar opacity. 2. Subtle interstitial thickening. This favors pulmonary edema superimposed upon emphysema. ACT 112: Negative or not required by law. Electronically signed by: Bigg Rudolph M.D. 03/01/2021 2:02 PM
[2021-03-01] MEDS ORDERED: AMPICILLIN/SULBACTAM SOD 3,000 MG in 0.9 % SODIUM CHLORIDE 100 ML IV STA (14:13)
--- NOTE | 2021-03-01 15:24 | Electrocardiogram Report ---
Test Reason : Blood Pressure : / mmHG Vent. Rate : 094 BPM Atrial Rate : 094 BPM P-R Int : 188 ms QRS Dur : 100 ms QT Int : 402 ms P-R-T Axes : 021 021 090 degrees QTc Int : 502 ms Poor data quality, interpretation may be adversely affected Sinus rhythm with occasional Premature ventricular complexes Nonspecific ST and T wave abnormality Prolonged QT Abnormal ECG When compared with ECG of 28-NOV-2020 08:15, Premature ventricular complexes are now Present Confirmed by Varun Christopher ([id number]) on 03/01/2021 3:24:07 PM Referred By: Confirmed By:Varun Christopher
--- NOTE | 2021-03-01 15:59 | History & Physical Report ---
Date of Service March 01, 2021 Assessment & Plan (1) Episode of unresponsiveness: Plan: - Admit to tele - Monitor cardiac arrhythmias overnight - Check 2d echo - PT/OT consults (2) Aspiration into lower respiratory tract: Plan: - CXR reviewed showing left sided pleural effusion - Will trial 1 dose of lasix 20 mg x 1 and repeat CXR in am to see if improved - Speech and swallow eval with hx of cva - Allow easy to chew diet - Aspiration precautions - Unasyn IV started in the ER, continue empirically for now - Lactic acid initially elevated at 2.3, procalcitonin is negative - COVID 19 NEG on admit (3) Hypoxia: Plan: - Appears that his baseline saturations is around 90-92 % from the last admission in November, hx of COPD (4) History of CVA (cerebrovascular accident): Plan: - Hx of such, chronic, left hemiplegia, dysarthria is mild, some memory impairment but answers all questions appropriately. - Turn and repo - PT/OT consults - Continue tylenol around the clock for joint pains (5) Atrial fibrillation: Plan: - Continue rate control with metoprolol tartrate, amiodarone (6) CAD (coronary artery disease): Plan: - Hx of such to LAD 2003 and 11/2019 on plavix and eliquis - as above - EKG as above - Consider cardiology consult pending overnight events (7) HTN (hypertension): Plan: - Cont lisinopril, metoprolol tartrate (8) Anemia: Plan: - Much improved, hgb 13.3, hx of GI bleed (9) Hypercholesterolemia: Plan: - Cont atorvastatin 80 mg daily (10) COPD (chronic obstructive pulmonary disease): Plan: - Stable respiratory effort, not on routine inhalers, does not wear O2 at baseline. - On 2 L at 96% currently, reported hypoxia but likely sits in the low 90s at all times with hx of such, wean o2 as tolerated. (11) BPH (benign prostatic hypertrophy): Plan: - Cont flomax DVT ppx: - teds, plavix, eliquis CODE: Full code Dispo: From home, likely to remain in the hospital x 1-2 days History of Present Illness Primary Care Provider: [facility] This is a 70-year-old male with PMHx of CVA with left-sided hemiplegia, CAD with GEORGIE placement, CHF, A. fib, hx of PE,hypertension, hyperlipidemia, anemia, hx GI bleed, and BPH who presents with acute unresponsive episode from [facility] today. Patient was found earlier this morning by nursing staff unres ponsive with labored breathing and tachypnea. He was unable to respond despite verbal and physical stimuli via sternal rub. No reported GI complaints or vomiting. He recently had follow-up for hospital stay regarding a GI bleed. He has back on Plavix, amiodarone and Eliquis. Patient is awake and alert during my visit, he provides one-word answers. He cannot recall events earlier today. He knows that he is in a hospital and came via ambulance. Reports that he is having some right-sided knee pain but other than this no other complaints. Denies any shortness of breath, chest pain, fevers but does admit to having chills. CXR reviews feel a small left pleural effusion with left basilar opacity, pulmonary edema superimposed on emphysema. Allergies Allergy/AdvReac Type Severity Reaction Status Date / Time No Known Allergies Allergy Verified 03/01/21 15:04 Home Medications Medication Instructions Recorded Confirmed Type multivitamin (Daily Multi-Vitamin) 1 tab PO QAM 11/03/18 03/01/21 History acetaminophen 325 mg tablet 650 mg PO Q4H PRN 09/15/20 03/01/21 History (Tylenol) amiodarone 200 mg tablet (Pacerone) 200 mg PO QAM 09/15/20 03/01/21 History apixaban 5 mg tablet (Eliquis) 5 mg PO BID 09/15/20 03/01/21 History atorvastatin 80 mg tablet (Lipitor) 80 mg PO QAM 09/15/20 03/01/21 History chlorhexidine gluconate 0.12 % 1 applic PO TID 09/15/20 03/01/21 History mouthwash (Peridex) cholecalciferol (vitamin D3) 25 25 mcg PO QAM 09/15/20 03/01/21 History mcg (1,000 unit) capsule (Vitamin D3) clopidogrel 75 mg tablet (Plavix) 75 mg PO QAM 09/15/20 03/01/21 History finasteride 5 mg tablet (Proscar) 5 mg PO QAM 09/15/20 03/01/21 History fluoxetine 20 mg capsule (Prozac) 20 mg PO QAM 09/15/20 03/01/21 History gabapentin 100 mg capsule 100 mg PO TID 09/15/20 03/01/21 History (Neurontin) metoprolol tartrate 25 mg tablet 12.5 mg PO QAM 09/15/20 03/01/21 History ropinirole 0.5 mg tablet 0.5 mg PO QID 09/15/20 03/01/21 History tamsulosin 0.4 mg capsule (Flomax) 0.4 mg PO QDD 09/15/20 03/01/21 History calcium carbonate 200 mg calcium 500 mg PO BID 11/28/20 03/01/21 History (500 mg) chewable tablet (Calcium Antacid) docusate sodium 100 mg capsule 100 mg PO BID #0 cap 12/10/20 03/01/21 Rx (Colace) pantoprazole 40 mg tablet,delayed 40 mg PO BID #60 tab 12/10/20 03/01/21 Rx release polyethylene glycol 3350 17 gram 17 g PO DAILY #30 ea 12/10/20 03/01/21 Rx oral powder packet (Miralax) ferrous sulfate 325 mg (65 mg 325 mg PO BID 03/01/21 03/01/21 History iron) tablet lisinopril 2.5 mg tablet 2.5 mg PO QAM 03/01/21 03/01/21 History sodium di- and 1 tab PO QID 03/01/21 03/01/21 History monophosphate-potassium phos monobasic 250 mg tablet (Phospha 250 Neutral) Past Med/Surg History Medical History (Updated 03/01/21 @ 16:35 by Lavinia Mai PA-C) Acquired renal cyst of left kidney Acute CHF Anemia Atrial fibrillation Benign prostatic hyperplasia with urinary obstruction Bladder calculi BPH (benign prostatic hypertrophy) CAD (coronary artery disease) Chronic anticoagulation COPD (chronic obstructive pulmonary disease) 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) GIB (gastrointestinal bleeding) Hematuria History of CVA (cerebrovascular accident) HTN (hypertension) Hypercholesterolemia Osteoporosis Pulmonary embolism Rectal bleeding Renal calculi ST elevation myocardial infarction (STEMI) Tobacco use UTI (urinary tract infection) Surgical History History of hernia repair Presence of stent in coronary artery S/P drug eluting coronary stent placement S/P PTCA (percutaneous transluminal coronary angioplasty) Family History Denies family history of Ovarian cancer Prostate cancer Myocardial infarction Breast cancer Colorectal cancer Social History Smoking Status: Former smoker Tobacco Type: Cigarettes Hx Alcohol Use: No Hx Substance Use: No Preferred Language: Monegasque Communication Ability: Unable Electronic Test Technician Required: No Beliefs That Will Affect Care: None marital status: Current Living Situation: Long-Term Current Living Situation Comment: [facility] (for rehab per pt) current occupational status: employed and retired current occupation: [email or web address] Feels Safe at Home: Yes Dental Care, Regularly: No Physical Activity Frequency: Does not Exercise Assistive Devices: None Review of Systems Review of Systems: Constitutional: No fever, sweats or chills Eyes: No diplopia, no worsening or blurred vision ENT: normal hearing, no trouble swallowing Respiratory: No cough, sputum, dyspnea at rest or on exertion Cardiovascular: No chest pain, tightness or palpitations Abdomen: No pain, nausea, vomiting, diarrhea or constipation Musculoskeletal: No joint pain, calf pain, swelling Neurologic: + Chronic left sided hemiplegia, no weakness, numbness/tingling Psychiatric: No anxiety or depression Skin: No rash or itch Physical Exam Physical Exam: General: awake, alert, no apparent distress, covers are pulled up over his head, responds with one word answers Head: Normocephalic, atraumatic ENT: PERRL, EOMI, no pharyngeal exudate, mucous membranes moist Chest: Diminished breath sounds at left base, but primarily clear to auscultation, on 2L via NC, no adventitious breath sounds Cardiac: Regular rate and rhythm, no murmur, no JVD, normal peripheral pulses, good capillary refill Abdominal: NABS x 4 quadrants, soft, nondistended, nontender to palpation, no rebound or guarding Extremities: Left extremity contractures, left side atrophy, otherwise normal inspection, no peripheral edema or erythema, calfs nontender to palpation Psych: Normal mood and affect Neuro: AAO x 3, strength intact bilaterally and rated 5/5, no motor deficits, speech is clear, no peripheral sensory deficits Results & Data Results & Data ([facility]) Vital Signs (Past 12 Hours) Vital Signs Temp Pulse Pulse Resp BP BP Pulse Ox 03/01/21 14:39 71 18 127/64 96 03/01/21 13:51 76 18 163/63 H 96 03/01/21 13:30 36.6 C 78 22 163/60 H 91 03/01/21 12:44 92 03/01/21 12:30 79 25 H 157/80 H 93 03/01/21 12:23 36.6 C 92 H 20 152/116 H 88 L Diagnostic Findings Chest X-Ray 03/01/21 00:00 XR chest 1V portable CLINICAL HISTORY: ILLNESS COMPARISON STUDY: Chest radiograph December 08, 2020. Chest CT performed earlier today. FINDINGS: There is a small left pleural effusion with left basilar opacity. No pneumothorax is present. There is underlying emphysema. Mild cardiomegaly is noted. There is subtle interstitial thickening. IMPRESSION: 1. Slight increase in a small left pleural effusion with left basilar opacity. 2. Subtle interstitial thickening. This favors pulmonary edema superimposed upon emphysema. ACT 112: Negative or not required by law. Electronically signed by: Bigg Rudolph M.D. 03/01/2021 2:[address] 03/01/21 12:20 CT SCAN OF THE BRAIN WITHOUT IV CONTRAST CLINICAL HISTORY: Change in mental status. Unresponsive. COMPARISON STUDY: CT of the brain dated 12/06/2020. TECHNIQUE: Unenhanced axial CT scan of the brain is performed from the vertex to the skull base. A dose lowering technique was utilized adhering to the principles of ALARA. The patient was scanned twice due to motion artifact. The examination is severely degraded by motion artifact. The patient was scanned 3 times in an effort to improve image quality. CT DOSE: 1919.58 mGy.cm FINDINGS: Brain parenchyma: Right MCA territory encephalomalacia is consistent with a remote infarct and unchanged. A small chronic lacunar infarct is also seen in the left parietal lobe. There are age-related involutional changes noting mild subcortical and periventricular microangiopathic change. Wallerian degeneration is noted in the right aspect of the zohaib. There is no hemorrhage, mass effect, or evidence of acute territorial ischemia by CT criteria. Caraballo-white matter differentiation is preserved. No extra-axial fluid collection is seen. Ventricles, sulci, cisterns: Prominent secondary to involutional change. Intracranial vasculature: There is atherosclerotic calcification of the cavernous carotid and vertebral arteries. Calvarium: Unremarkable. Sinuses and mastoids: The paranasal sinuses are clear. The mastoid air cells are well pneumatized. Orbits: The bony orbits are grossly intact. There are bilateral ocular lens implants. IMPRESSION: 1. There is no hemorrhage, mass effect, or evidence of acute territorial ischem ia by CT criteria noting a significantly motion compromised examination. 2. Remote infarcts are unchanged. ACT 112: Negative or not required by law.' Electronically signed by: Driss Villalba M.D. 03/01/2021 1:17 PM Abdomen/Pelvis CT 03/01/21 12:23 CT OF THE ABDOMEN AND PELVIS WITH CONTRAST CLINICAL HISTORY: hypoxia on eliquis, hx aspiration, back pain COMPARISON STUDY: CT of the abdomen and pelvis November 28, 2020 TECHNIQUE: Following IV administration of 109 mL of Optiray, axial images of the abdomen and pelvis were obtained from the lung bases to the proximal femurs. Images were reviewed in the axial, sagittal, and coronal planes. IV contrast was administered without complication. Automated exposure control was utilized for the study. A dose lowering technique was utilized adhering to the principles of ALARA. FINDINGS: Please note that the chest CT will be reported separately. This exam is compromised given difficulty positioning and motion artifact. No pneumatosis, free air or portal venous gas is present. Liver, spleen, adrenal glands, right kidney and pancreas are grossly unremarkable. There is no biliary or pancreatic ductal dilatation. Left renal cyst is noted. There is a 4 mm left renal calculus. No ureteral calculi are identified. Multiple calculi present. A density within the base of the bladder likely reflects an enlarged prostate. This is unchanged. There is no evidence for a bowel obstruction. Large amount of stool within the rectum is noted. No hemoperitoneum is noted. There is no retroperitoneal hematoma. No acute fracture is identified within the visualized skeletal structures. Bilateral inguinal hernias are noted. IMPRESSION: 1. Exam compromised given motion artifact and difficulty positioning. 2. No acute process within the abdomen or pelvis. 3. Multiple bladder calculi. 4 mm left renal calculus. No ureteral calculi. 2. Density within the base of the bladder which likely reflects an enlarged prostate. The bladder mass is considered considered much less likely. ACT 112: Negative or not required by law. Electronically signed by: Bigg Rudolph M.D. 03/01/2021 1:37 PM Chest CTA 03/01/21 12:23 CT ANGIOGRAM OF THE CHEST CLINICAL HISTORY: Hypoxia. COMPARISON STUDY: Chest x-ray dated 12/08/2020. Chest CT dated 12/06/2020. TECHNIQUE: Following the IV administration of 109 cc of Optiray 320, CT angiogram of the chest was performed from the upper abdomen to the thoracic inlet utilizing the pulmonary embolus protocol. Images are reviewed in the axial, sagittal, and coronal planes. 3-D MIPS images are created and assessed. IV contrast was administered without complication. A dose lowering technique was utilized adhering to the principles of ALARA. The examination is severely degraded by suboptimal positioning within the CT gantry, motion artifact, and streak artifact from the arms which could not elevated above the chest. CT DOSE: 1079.21 mGy.cm FINDINGS: Thyroid: Imaged portions of the thyroid gland are normal in size and attenuation. Thoracic aorta: There is atherosclerotic calcification of the thoracic aorta, which is normal in caliber and demonstrates standard 3-vessel arch anatomy. No dissection is seen. Pulmonary vasculature: The pulmonary trunk is normal in caliber. There are no filling defects identified in main main or lobar branches to suggest central pulmonary embolus. The segmental and subsegmental branches cannot be evaluated due to severe motion artifact. Heart: The heart is top normal in size and without pericardial effusion. Lungs and pleural spaces: Evaluation of the lung parenchyma is severely degraded by motion artifact. Advanced emphysematous change is noted. The trachea and central airways appear clear. There is a small left pleural effusion with dependent consolidation throughout the left lung. Segmental atelectasis is suggested in the lingula. The right lung appears clear noting basilar scarring/atelectasis. Mediastinum: There is no mediastinal lymphadenopathy. Meghan: Clear. Axillae: There is no axillary lymphadenopathy. Upper abdomen: There are at least 3 nonobstructing left renal calculi which measure up to 4 mm. A 2 cm cyst is seen in the upper pole of the left kidney. There is a tiny hiatal hernia. Skeletal structures: The skeletal structures are osteopenic. Degenerative change and kyphoscoliosis is noted in the thoracic spine. Arthritic change is seen in the shoulders. No lytic or blastic bony lesions are seen. IMPRESSION: 1. Severely streak and motion degraded examination. 2. There is no evidence of central pulmonary embolus in the main or lobar pulmonary arteries. The segmental and subsegmental branches cannot be evaluated due to severe motion artifact. 3. Advanced emphysema. 4. There is a small left pleural effusion with dependent consolidation throughout the left lung. This could represent atelectasis versus an infectio us/inflammatory pneumonitis and clinical correlation will be required. 5. Left-sided nephrolithiasis. 6. Additional findings as above. ACT 112: Negative or not required by law. Electronically signed by: Driss Villalba M.D. 03/01/2021 1:58 PM ECG Additional Comments: Vent. Rate : 094 BPM Atrial Rate : 094 BPM P-R Int : 188 ms QRS Dur : 100 ms QT Int : 402 ms P-R-T Axes : 021 021 090 degrees QTc Int : 502 ms Poor data quality, interpretation may be adversely affected Sinus rhythm with occasional Premature ventricular complexes Nonspecific ST and T wave abnormality Prolonged QT Abnormal ECG When compared with ECG of 28-NOV-2020 08:15, Premature ventricular complexes are now Present Code Status & VTE Plan Code Status Full code Supervising Physician Co-Signing Physician Notes Pt was seen and examined. Agreed with Lavinia MAHER- exam, assessment and plan. 70-year-old male with PMHx of CVA with left-sided hemiplegia, CAD with GEORGIE placement, CHF, A. fib, hx of PE,hypertension, hyperlipidemia, anemia, hx GI bleed, and BPH who presents with acute unresponsive episode from [facility] today. He was found this morning by nursing staff unresponsive with labored breathing and tachypnea. He was recently discharge for GI blee. He could not recall what happen. he is having some right-sided knee pain. Denies any shortness of breath, chest pain, fevers but does admit to having chills. CXR showed mall left pleural effusion with left basilar opacity, pulmonary edema superimposed on emphysema. CT head showed no hemorrhage, mass effect, or evidence of acute territorial ischemia. CTA hest showed no evidence of central pulmonary embolus in the main or lobar pulmonary arteries. lactate elevated on a dmission possible related to hypoxia. Lasix 20mg x1 given. Will repeat CXR in am. Will consult speech for possible aspiration. Received Unasyn in the ER, will continue. Will repeat Lactic acid and monitor CBC. PT/OT eval. Continue monitor closely. MD Chano (1) BPH (benign prostatic hypertrophy) Lower urinary tract symptom presence: symptoms absent Qualified Code(s): N40.0 - Benign prostatic hyperplasia without lower urinary tract symptoms (2) Aspiration into lower respiratory tract Encounter type: initial encounter Qualified Code(s): T17.800A - Unspecified foreign body in other parts of respiratory tract causing asphyxiation, initial encounter (3) CAD (coronary artery disease) Associated angina: without angina Coronary Disease-Associated Artery/Lesion type: [place] artery [place] vs. transplanted heart: [place] heart Qualified Code(s): I25.10 - Atherosclerotic heart disease of [place] coronary artery without angina pectoris (4) HTN (hypertension) Hypertension type: essential hypertension Qualified Code(s): I10 - Essential (primary) hypertension
[2021-03-01] MEDS ORDERED: FUROSEMIDE 40 MG/4 ML VIAL IV STA (17:02)
[2021-03-01] MEDS ORDERED: ONDANSETRON INJ 2 MG/ML 2 ML VIAL IV PRN (20:17)
[2021-03-01] MEDS ORDERED: ACETAMINOPHEN 325 MG TAB PO PRN ×2 (20:17)
[2021-03-01] MEDS: AMPICILLIN/SULBACTAM SOD 3,000 MG in 0.9 % SODIUM CHLORIDE 100 ML IV SCH ×2 (20:49→23:10)
[2021-03-01] MEDS: rOPINIRole HCL 0.25 MG TABLET PO SCH (22:05)
[2021-03-01] MEDS: APIXABAN 5 MG TABLET PO SCH (22:06)
[2021-03-01] MEDS: CALCIUM CARBONATE 500 MG CHEWABLE TAB PO SCH (22:06)
[2021-03-01] MEDS: CHLORHEXIDINE GLUCONATE 0.12% 480 ML MT SCH (22:07)
[2021-03-01] MEDS: DOCUSATE SODIUM 100 MG CAP PO SCH (22:08)
[2021-03-01] MEDS: FERROUS SULFATE 325 MG TAB PO SCH (22:08)
[2021-03-01] MEDS: PANTOprazole 40 MG TAB PO SCH (22:08)
[2021-03-01] MEDS: GABAPENTIN 100 MG CAP PO SCH (22:09)
[2021-03-01] MEDS: POT PHOSPHATE MONOBASIC W/ SOD TAB PO SCH (22:09)
[2021-03-02] MEDS: AMPICILLIN/SULBACTAM SOD 3,000 MG in 0.9 % SODIUM CHLORIDE 100 ML IV SCH ×3 (07:56→22:10)
[2021-03-02] MEDS ORDERED: PNEUMOCOCCAL Polysaccharide Vaccine 25mcg/0.5mL vial/Syr IM ONE (08:00)
[2021-03-02] MEDS ORDERED: Influenza Vaccine-High Dose (Fluzone-HD) PF 65+ 0.7 ML SYR IM ONE (08:00)
[2021-03-02 08:29] LABS: Hematocrit (blood only) 36.2 % (42-52); Hemoglobin 11.4 g/dL (14.0-18.0); Mean Corpuscular Hemoglobin 27.7 pg (25-34); Mean Corpuscular Hgb Conc 31.5 g/dL (32-36); Mean Corpuscular Volume 87.9 fL (80-100); Mean Platelet Volume 11.3 fL (7.4-10.4); Platelet Count 185 K/uL (130-400); RDW Coefficient of Variation 18.4 % (11.5-14.5); RDW Standard Deviation 59.9 fL (36.4-46.3); Red Blood Count 4.12 M/uL (4.7-6.1); White Blood Count 7.99 K/uL (4.8-10.8)
[2021-03-02 09:04] LABS: BUN Creatinine Ratio 12.5 (10-20); Calcium 9.3 mg/dl (8.5-10.1); Creatinine Clr Calc Pharmacy 18.2 ml/min; Est GFR (African American) 77.3 ml/min; Est GFR (Non-African American) 66.7 ml/min; Magnesium 2.1 mg/dl (1.8-2.4); Potassium 3.3 mmol/L (3.5-5.1)
[2021-03-02 09:07] LABS: Albumin Globulin Ratio 1.1 (0.9-2); Bilirubin,Total 0.7 mg/dl (0.2-1); Globulin 2.6 gm/dl (2.5-4.0); Phosphorus 3.4 mg/dl (2.5-4.9); Total Protein 5.6 gm/dl (6.4-8.2)
[2021-03-02] MEDS ORDERED: POTASSIUM CHLORIDE CRTAB 20 MEQ TABCR PO STA (09:25)
--- NOTE | 2021-03-02 09:56 | XRay Report ---
XR chest 1V portable HISTORY: Follow-up left lung airspace opacity. Possible pneumonia. COMPARISON: Chest 03/01/2021. FINDINGS: No pneumothorax. Small left pleural effusion and left basilar airspace opacities persist. T here is emphysema with diffuse interstitial thickening suggestive of mild superimposed congestive uriel nge. No new focal lung consolidations identified. Rotated study. IMPRESSION: 1. No change in the small left pleural effusion and nonspecific left basilar densities 2. Emphysema and mild congestive change persists. ACT 112: Negative or not required by law. Electronically signed by: Raudel Gayle M.D. 03/02/2021 9:55 AM
[2021-03-02] MEDS: CALCIUM CARBONATE 500 MG CHEWABLE TAB PO SCH ×2 (10:36→20:06)
[2021-03-02] MEDS: APIXABAN 5 MG TABLET PO SCH ×2 (10:36→20:06)
[2021-03-02] MEDS: CLOPIDOGREL BISULFATE 75 MG TAB PO SCH (10:36)
[2021-03-02] MEDS: FERROUS SULFATE 325 MG TAB PO SCH ×2 (10:36→20:07)
[2021-03-02] MEDS: ATORVASTATIN 40 MG TAB PO SCH (10:36)
[2021-03-02] MEDS: AMIODARONE 200 MG TAB PO SCH (10:36)
[2021-03-02] MEDS: FINASTERIDE 5 MG TAB PO SCH (10:37)
[2021-03-02] MEDS: GABAPENTIN 100 MG CAP PO SCH ×3 (10:37→20:07)
[2021-03-02] MEDS: FLUoxetine HCL 20 MG CAP PO SCH (10:37)
[2021-03-02] MEDS: POT PHOSPHATE MONOBASIC W/ SOD TAB PO SCH ×4 (10:37→20:04)
[2021-03-02] MEDS: DOCUSATE SODIUM 100 MG CAP PO SCH ×2 (10:38→20:05)
[2021-03-02] MEDS: MULTIVITAMIN TAB PO SCH (10:38)
[2021-03-02] MEDS: METOPROLOL TARTRATE 25 MG TAB PO SCH (10:38)
[2021-03-02] MEDS: CHOLECALCIFEROL 1,000 UNITS 25 MCG TAB PO SCH (10:38)
[2021-03-02] MEDS: lisinopril 2.5 MG TAB PO SCH (10:38)
[2021-03-02] MEDS: PANTOprazole 40 MG TAB PO SCH ×2 (10:38→20:04)
[2021-03-02] MEDS: CHLORHEXIDINE GLUCONATE 0.12% 480 ML MT SCH ×4 (10:39→20:06)
[2021-03-02] MEDS: rOPINIRole HCL 0.25 MG TABLET PO SCH ×4 (10:43→20:03)
[2021-03-02] MEDS: POLYETHYLENE (MIRALAX) 17 GM PACK PO SCH ×2 (11:06→14:19)
[2021-03-02] MEDS: TAMSULOSIN HCL 0.4 MG CAP PO SCH (17:27)
[2021-03-02] MEDS ORDERED: AMPICILLIN/SULBACTAM SOD 3,000 MG in 0.9 % SODIUM CHLORIDE 100 ML IV SCH (20:00)
--- NOTE | 2021-03-02 20:53 | Hospitalist Progress Note ---
Date of Service March 02, 2021 Assessment & Plan (1) Episode of unresponsiveness: Plan: Etiology unknown Might be due to hypoxia CT head showed no acute intracranial abnormality ECHO showed mild reduced LV systolic function,with EF 40 to 45 %. mild to moderate hypokinesis of the anterior, anterolateral, inferolateral and inferior tracy, otherwise, normal wall motion Continue PT/OT Fall precaution (2) Aspiration into lower respiratory tract: (3) Hypoxia: Plan: Possible related to aspiration Repeat CXR this morning showed small left pleural effusion and left basilar airspace opacities persist. Lasix 20mg IV x1 given on admission - Continue Unasyn for now Speech on board recommended easy to chew diet and nectar thick liquid Continue aspiration precaution Continue oxygen supplement (4) COPD (chronic obstructive pulmonary disease): (5) History of CVA (cerebrovascular accident): Plan: Hx of such, chronic, left hemiplegia, dysarthria is mild, some memory impairment but answers all questions appropriately. CT head negative Continue statin, plavix and Eliquis (6) Atrial fibrillation: Plan: rate control with metoprolol tartrate, amiodarone Continue eliquis (7) CAD (coronary artery disease): Plan: -Hx of such to LAD 2003 and 11/2019 on plavix, eliquis and metoprolol Stable (8) HTN (hypertension): Plan: - Cont lisinopril, metoprolol tartrate (9) Anemia: Plan: Hgb 11.4 No sign of active bleeding Continue monitor CBC (10) Hypercholesterolemia: Plan: -Cont atorvastatin 80 mg daily (11) BPH (benign prostatic hypertrophy): Plan: - Cont flomax DVT ppx: On eliquis CODE: Full code Dispo: Will discharge once medically stable Admission and Anticipated Discharge Date Admission Date: March 01, 2021 Subjective Pt was seen and examined for follow up of unresponsiveness Lying in bed with no acute distress sleeping Pt was able to wake up but he fell back to sleep Does not seem to be in any acute distress Review of Systems Review of Systems: All systems reviewed & are unremarkable except as noted in Subjective Physical Exam Physical Exam: General- sleepy Head- atraumatic Eyes- PERRL, EOMI, ENT- oropharynx clear Neck- supple, no JVD Lungs- diminished BS Heart- regular rhythm; no murmur Abdomen- normal bowel sounds, soft, nontender Extremities- no calf tenderness Neuro- lethargy, no facial palsy; no dysarthria Skin- warm & dry Results & Data Results & Data ([facility]) Vital Signs (Past 12 Hours) Vital Signs Temp Pulse Pulse Pulse Resp BP BP 03/02/21 19:00 36.5 C 67 18 139/65 03/02/21 15:00 52 L 03/02/21 14:48 36.5 C 54 L 18 115/61 03/02/21 11:27 36.7 C 69 18 122/66 Pulse Ox 03/02/21 19:00 92 03/02/21 15:00 03/02/21 14:48 90 03/02/21 11:27 92 (1) BPH (benign prostatic hypertrophy) Lower urinary tract symptom presence: symptoms absent Qualified Code(s): N40.0 - Benign prostatic hyperplasia without lower urinary tract symptoms (2) Aspiration into lower respiratory tract Encounter type: initial encounter Qualified Code(s): T17.800A - Unspecified foreign body in other parts of respiratory tract causing asphyxiation, initial encounter (3) CAD (coronary artery disease) Associated angina: without angina Coronary Disease-Associated Artery/Lesion type: [place] artery [place] vs. transplanted heart: [place] heart Qualified Code(s): I25.10 - Atherosclerotic heart disease of [place] coronary artery without angina pectoris (4) HTN (hypertension) Hypertension type: essential hypertension Qualified Code(s): I10 - Essential (primary) hypertension
[2021-03-03] MEDS: AMPICILLIN/SULBACTAM SOD 3,000 MG in 0.9 % SODIUM CHLORIDE 100 ML IV SCH ×2 (05:20→11:33)
[2021-03-03 08:12] LABS: Albumin Level 2.5 gm/dl (3.4-5.0); BUN Creatinine Ratio 16.1 (10-20); Calcium 8.9 mg/dl (8.5-10.1); Creatinine Clr Calc Pharmacy 72.1 ml/min; Est GFR (African American) 88.9 ml/min; Est GFR (Non-African American) 76.7 ml/min; Magnesium 2.2 mg/dl (1.8-2.4); Potassium 3.7 mmol/L (3.5-5.1)
[2021-03-03 08:14] LABS: Albumin Globulin Ratio 0.8 (0.9-2); Bilirubin,Total 0.7 mg/dl (0.2-1); Globulin 3.1 gm/dl (2.5-4.0); Total Protein 5.6 gm/dl (6.4-8.2)
[2021-03-03] MEDS: CALCIUM CARBONATE 500 MG CHEWABLE TAB PO SCH ×2 (09:06→21:58)
[2021-03-03] MEDS: CHLORHEXIDINE GLUCONATE 0.12% 480 ML MT SCH ×3 (09:06→21:55)
[2021-03-03] MEDS: APIXABAN 5 MG TABLET PO SCH ×2 (09:06→21:59)
[2021-03-03] MEDS: CLOPIDOGREL BISULFATE 75 MG TAB PO SCH (09:06)
[2021-03-03] MEDS: FINASTERIDE 5 MG TAB PO SCH (09:06)
[2021-03-03] MEDS: FERROUS SULFATE 325 MG TAB PO SCH ×2 (09:06→21:58)
[2021-03-03] MEDS: CHOLECALCIFEROL 1,000 UNITS 25 MCG TAB PO SCH (09:06)
[2021-03-03] MEDS: AMIODARONE 200 MG TAB PO SCH (09:06)
[2021-03-03] MEDS: lisinopril 2.5 MG TAB PO SCH (09:06)
[2021-03-03] MEDS: GABAPENTIN 100 MG CAP PO SCH ×3 (09:06→21:56)
[2021-03-03] MEDS: METOPROLOL TARTRATE 25 MG TAB PO SCH (09:06)
[2021-03-03] MEDS: DOCUSATE SODIUM 100 MG CAP PO SCH ×2 (09:06→21:56)
[2021-03-03] MEDS: FLUoxetine HCL 20 MG CAP PO SCH (09:06)
[2021-03-03] MEDS: ATORVASTATIN 40 MG TAB PO SCH (09:06)
[2021-03-03 09:07] LABS: Hematocrit (blood only) 37.9 % (42-52); Hemoglobin 12.3 g/dL (14.0-18.0); Mean Corpuscular Hemoglobin 28.1 pg (25-34); Mean Corpuscular Volume 86.5 fL (80-100); Mean Platelet Volume 11.6 fL (7.4-10.4); Platelet Count 184 K/uL (130-400); RDW Coefficient of Variation 18.1 % (11.5-14.5); RDW Standard Deviation 57.7 fL (36.4-46.3); Red Blood Count 4.38 M/uL (4.7-6.1); White Blood Count 6.61 K/uL (4.8-10.8)
[2021-03-03] MEDS: rOPINIRole HCL 0.25 MG TABLET PO SCH ×4 (09:10→21:55)
[2021-03-03] MEDS: MULTIVITAMIN TAB PO SCH (09:10)
[2021-03-03] MEDS: POT PHOSPHATE MONOBASIC W/ SOD TAB PO SCH ×4 (09:10→21:54)
[2021-03-03] MEDS: PANTOprazole 40 MG TAB PO SCH ×2 (09:10→21:57)
[2021-03-03 09:33] LABS: Mean Corpuscular Hgb Conc 32.5 g/dL (32-36)
[2021-03-03] MEDS: POLYETHYLENE (MIRALAX) 17 GM PACK PO SCH (09:44)
--- NOTE | 2021-03-03 14:52 | Hospitalist Progress Note ---
Date of Service March 03, 2021 Assessment & Plan (1) Episode of unresponsiveness: Plan: Etiology unknown Might be due to hypoxia CT head showed no acute intracranial abnormality ECHO showed mild reduced LV systolic function,with EF 40 to 45 %. mild to moderate hypokinesis of the anterior, anterolateral, inferolateral and inferior tracy, otherwise, normal wall motion Continue PT/OT Fall precaution Clinically improves (2) Aspiration into lower respiratory tract: (3) COPD (chronic obstructive pulmonary disease): (4) Hypoxia: Plan: Possible related to aspiration Repeat CXR this morning showed small left pleural effusion and left basilar airspace opacities persist. Lasix 20mg IV x1 given on admission - On Unasyn IV, Will transition to Augmentin Speech on board recommended easy to chew diet and nectar thick liquid Continue aspiration precaution Will try to wean off oxygen supplement (5) History of CVA (cerebrovascular accident): Plan: Hx of such, chronic, left hemiplegia, dysarthria is mild, some memory impairment but answers all questions appropriately. CT head negative Continue statin, plavix and Eliquis (6) Atrial fibrillation: Plan: rate control with metoprolol tartrate, amiodarone Continue eliquis (7) CAD (coronary artery disease): Plan: -Hx of such to LAD 2003 and 11/2019 on plavix, eliquis and metoprolol Stable (8) HTN (hypertension): Plan: - Cont lisinopril, metoprolol tartrate (9) Anemia: Plan: Hgb 11.4 No sign of active bleeding Continue monitor CBC (10) Hypercholesterolemia: Plan: -Cont atorvastatin 80 mg daily (11) BPH (benign prostatic hypertrophy): Plan: - Cont flomax DVT ppx: On eliquis CODE: Full code Dispo: Plan to discharge to [facility] Admission and Anticipated Discharge Date Admission Date: March 01, 2021 Subjective Pt was seen and examined for follow up of unresponsiveness Sitting in bed with no acute distress sleeping Pt is wake, follow command and very talkative denies any chest pain, palpitation, dizziness and SOB Review of Systems Review of Systems: All systems reviewed & are unremarkable except as noted in Subjective Physical Exam Physical Exam: General- sleepy Head- atraumatic Eyes- PERRL, EOMI, ENT- oropharynx clear Neck- supple, no JVD Lungs- diminished BS Heart- regular rhythm; no murmur Abdomen- normal bowel sounds, soft, nontender Extremities- no calf tenderness Neuro- lethargy, no facial palsy; no dysarthria Skin- warm & dry Results & Data Results & Data ([facility]) Vital Signs (Past 12 Hours) Vital Signs Temp Pulse Pulse Resp BP Pulse Ox 03/03/21 12:04 37.3 C 70 18 158/66 H 91 03/03/21 07:54 36.7 C 76 18 118/63 91 03/03/21 07:33 56 L 03/03/21 04:00 36.5 C 62 18 134/67 98 03/03/21 02:54 60 (1) BPH (benign prostatic hypertrophy) Lower urinary tract symptom presence: symptoms absent Qualified Code(s): N40.0 - Benign prostatic hyperplasia without lower urinary tract symptoms (2) Aspiration into lower respiratory tract Encounter type: initial encounter Qualified Code(s): T17.800A - Unspecified foreign body in other parts of respiratory tract causing asphyxiation, initial encounter (3) CAD (coronary artery disease) Associated angina: without angina Coronary Disease-Associated Artery/Lesion type: [place] artery [place] vs. transplanted heart: [place] heart Qualified Code(s): I25.10 - Atherosclerotic heart disease of [place] coronary artery without angina pectoris (4) HTN (hypertension) Hypertension type: essential hypertension Qualified Code(s): I10 - Essential (primary) hypertension
[2021-03-03] MEDS: TAMSULOSIN HCL 0.4 MG CAP PO SCH (17:07)
[2021-03-03] MEDS ORDERED: POTASSIUM CHLORIDE CRTAB 20 MEQ TABCR PO STA (17:15)
[2021-03-03] MEDS: AMOXICILLIN/CLAVULANATE 875 MG TAB PO SCH (17:20)
[2021-03-03] MEDS ORDERED: FUROSEMIDE 20 MG in SYRINGE 0 ML IV ONE (17:30)
[2021-03-04 07:10] LABS: Hematocrit (blood only) 37.6 % (42-52); Hemoglobin 12.2 g/dL (14.0-18.0); Mean Corpuscular Hgb Conc 32.4 g/dL (32-36); Mean Corpuscular Volume 86.4 fL (80-100); Platelet Count 171 K/uL (130-400); RDW Coefficient of Variation 18.1 % (11.5-14.5); RDW Standard Deviation 57.6 fL (36.4-46.3); Red Blood Count 4.35 M/uL (4.7-6.1); White Blood Count 6.73 K/uL (4.8-10.8)
[2021-03-04 07:39] LABS: Albumin Level 2.8 gm/dl (3.4-5.0); BUN Creatinine Ratio 17.9 (10-20); Calcium 9.1 mg/dl (8.5-10.1); Creatinine Clr Calc Pharmacy 71.4 ml/min; Est GFR (African American) 88.9 ml/min; Est GFR (Non-African American) 76.7 ml/min; Magnesium 2.3 mg/dl (1.8-2.4); Potassium 3.4 mmol/L (3.5-5.1)
[2021-03-04 07:42] LABS: Albumin Globulin Ratio 0.9 (0.9-2); Bilirubin,Total 0.7 mg/dl (0.2-1); Globulin 3.1 gm/dl (2.5-4.0); Total Protein 5.9 gm/dl (6.4-8.2)
[2021-03-04] MEDS: AMIODARONE 200 MG TAB PO SCH (08:07)
[2021-03-04] MEDS: ATORVASTATIN 40 MG TAB PO SCH (08:07)
[2021-03-04] MEDS: CALCIUM CARBONATE 500 MG CHEWABLE TAB PO SCH (08:07)
[2021-03-04] MEDS: AMOXICILLIN/CLAVULANATE 875 MG TAB PO SCH (08:08)
[2021-03-04] MEDS: GABAPENTIN 100 MG CAP PO SCH ×2 (08:08→13:12)
[2021-03-04] MEDS: rOPINIRole HCL 0.25 MG TABLET PO SCH ×2 (08:08→13:11)
[2021-03-04] MEDS: FERROUS SULFATE 325 MG TAB PO SCH (08:09)
[2021-03-04] MEDS: lisinopril 2.5 MG TAB PO SCH (08:09)
[2021-03-04] MEDS: PANTOprazole 40 MG TAB PO SCH (08:10)
[2021-03-04] MEDS: CLOPIDOGREL BISULFATE 75 MG TAB PO SCH (08:10)
[2021-03-04] MEDS: CHOLECALCIFEROL 1,000 UNITS 25 MCG TAB PO SCH (08:10)
[2021-03-04] MEDS: DOCUSATE SODIUM 100 MG CAP PO SCH (08:10)
[2021-03-04] MEDS: FLUoxetine HCL 20 MG CAP PO SCH (08:11)
[2021-03-04] MEDS: METOPROLOL TARTRATE 25 MG TAB PO SCH (08:11)
[2021-03-04] MEDS: MULTIVITAMIN TAB PO SCH (08:11)
[2021-03-04] MEDS: APIXABAN 5 MG TABLET PO SCH (08:11)
[2021-03-04] MEDS: FINASTERIDE 5 MG TAB PO SCH (08:11)
[2021-03-04] MEDS: POT PHOSPHATE MONOBASIC W/ SOD TAB PO SCH ×2 (08:12→13:12)
[2021-03-04] MEDS: POLYETHYLENE (MIRALAX) 17 GM PACK PO SCH (08:12)
[2021-03-04] MEDS: CHLORHEXIDINE GLUCONATE 0.12% 480 ML MT SCH ×2 (09:09→13:11)
[2021-03-04] MEDS ORDERED: POTASSIUM CHLORIDE 10 MEQ TABCR PO STA (09:30)
[2021-03-04] MEDS ORDERED: POTASSIUM CHLORIDE CRTAB 20 MEQ TABCR PO STA (09:30)
[2021-03-04] MEDS ORDERED: FUROSEMIDE 20 MG in SYRINGE 0 ML IV ONE (09:45)
--- NOTE | 2021-03-04 13:45 | Discharge Summary ---
Date of Service March 04, 2021 Admission HPI Per Admitting Provider This is a 70-year-old male with PMHx of CVA with left-sided hemiplegia, CAD with GEORGIE placement, CHF, A. fib, hx of PE,hypertension, hyperlipidemia, anemia, hx GI bleed, and BPH who presents with acute unresponsive episode from [facility] today. Patient was found earlier this morning by nursing staff unresponsive with labored breathing and tachypnea. He was unable to respond despite verbal and physical stimuli via sternal rub. No reported GI complaints or vomiting. He recently had follow-up for hospital stay regarding a GI bleed. He has back on Plavix, amiodarone and Eliquis. Patient is awake and alert during my visit, he provides one-word answers. He cannot recall events earlier today. He knows that he is in a hospital and came via ambulance. Reports that he is having some right-sided knee pain but other than this no other complaints. Denies any shortness of breath, chest pain, fevers but does admit to having chills. CXR reviews feel a small left pleural effusion with left basilar opacity, pulmonary edema superimposed on emphysema. Admission Exam Per Admitting Provider General: awake, alert, no apparent distress, covers are pulled up over his head, responds with one word answers Head: Normocephalic, atraumatic ENT: PERRL, EOMI, no pharyngeal exudate, mucous membranes moist Chest: Diminished breath sounds at left base, but primarily clear to auscultation, on 2L via NC, no adventitious breath sounds Cardiac: Regular rate and rhythm, no murmur, no JVD, normal peripheral pulses, good capillary refill Abdominal: NABS x 4 quadrants, soft, nondistended, nontender to palpation, no rebound or guarding Extremities: Left extremity contractures, left side atrophy, otherwise normal inspection, no peripheral edema or erythema, calfs nontender to palpation Psych: Normal mood and affect Neuro: AAO x 3, strength intact bilaterally and rated 5/5, no motor deficits, speech is clear, no peripheral sensory deficits Principal Diagnosis Episode of unresponsiveness: Aspiration into lower respiratory tract: COPD (chronic obstructive pulmonary disease): Hypoxia: History of CVA (cerebrovascular accident): Atrial fibrillation: CAD (coronary artery disease): HTN (hypertension): Discharge Exam General- sleepy Head- atraumatic Eyes- PERRL, EOMI, ENT- oropharynx clear Neck- supple, no JVD Lungs- diminished BS Heart- regular rhythm; no murmur Abdomen- normal bowel sounds, soft, nontender Extremities- no calf tenderness Neuro- lethargy, no facial palsy; no dysarthria Skin- warm & dry Discharge Data Allergies Allergy/AdvReac Type Severity Reaction Status Date / Time No Known Allergies Allergy Verified 03/01/21 15:04 Consultations 03/01/21 14:49 ED Decision to Admit Stat Ordered Studies 03/01/21 12:20 CT head/brain wo con Stat 03/01/21 12:23 CT abd pelvis IV con only Stat CT angio chest PE protocol Stat XR chest 1V portable HISTORY: Follow-up left lung airspace opacity. Possible pneumonia. COMPARISON: Chest 03/01/2021. FINDINGS: No pneumothorax. Small left pleural effusion and left basilar airspace opacities persist. There is emphysema with diffuse interstitial thickening suggestive of mild superimposed congestive change. No new focal lung consolidations identified. Rotated study. IMPRESSION: 1. No change in the small left pleural effusion and nonspecific left basilar densities 2. Emphysema and mild congestive change persists. ACT 112: Negative or not required by law. Electronically signed by: Raudel Gayle M.D. 03/02/2021 9:55 AM Dictated:03/02/21953 Transcribed: 03/02/21953 CT ANGIOGRAM OF THE CHEST CLINICAL HISTORY: Hypoxia. COMPARISON STUDY: Chest x-ray dated 12/08/2020. Chest CT dated 12/06/2020. TECHNIQUE: Following the IV administration of 109 cc of Optiray 320, CT angiogram of the chest was performed from the upper abdomen to the thoracic inlet utilizing the pulmonary embolus protocol. Images are reviewed in the axial, sagittal, and coronal planes. 3-D MIPS images are created and assessed. IV contrast was administered without complication. A dose lowering technique was utilized adhering to the principles of ALARA. The examination is severely degraded by suboptimal positioning within the CT gantry, motion artifact, and streak artifact from the arms which could not elevated above the chest. CT DOSE: 1079.21 mGy.cm FINDINGS: Thyroid: Imaged portions of the thyroid gland are normal in size and attenuation. Thoracic aorta: There is atherosclerotic calcification of the thoracic aorta, which is normal in caliber and demonstrates standard 3-vessel arch anatomy. No dissection is seen. Pulmonary vasculature: The pulmonary trunk is normal in caliber. There are no filling defects identified in main main or lobar branches to suggest central pulmonary embolus. The segmental and subsegmental branches cannot be evaluated due to severe motion artifact. Heart: The heart is top normal in size and without pericardial effusion. Lungs and pleural spaces: Evaluation of the lung parenchyma is severely degraded by motion artifact. Advanced emphysematous change is noted. The trachea and central airways appear clear. There is a small left pleural effusion with dependent consolidation throughout the left lung. Segmental atelectasis is suggested in the lingula. The right lung appears clear noting basilar scarring/atelectasis. Mediastinum: There is no mediastinal lymphadenopathy. Meghan: Clear. Axillae: There is no axillary lymphadenopathy. Upper abdomen: There are at least 3 nonobstructing left renal calculi which measure up to 4 mm. A 2 cm cyst is seen in the upper pole of the left kidney. There is a tiny hiatal hernia. Skeletal structures: The skeletal structures are osteopenic. Degenerative change and kyphoscoliosis is noted in the thoracic spine. Arthritic change is seen in the shoulders. No lytic or blastic bony lesions are seen. IMPRESSION: 1. Severely streak and motion degraded examination. 2. There is no evidence of central pulmonary embolus in the main or lobar pulmonary arteries. The segmental and subsegmental branches cannot be evaluated due to severe motion artifact. 3. Advanced emphysema. 4. There is a small left pleural effusion with dependent consolidation throughout the left lung. This could represent atelectasis versus an infectious/inflammatory pneumonitis and clinical correlation will be required. 5. Left-sided nephrolithiasis. 6. Additional findings as above. ACT 112: Negative or not required by law. Electronically signed by: Driss Villalba M.D. 03/01/2021 1:58 PM Dictated:03/01/21 1351 Transcribed: 03/01/[address] OF THE ABDOMEN AND PELVIS WITH CONTRAST CLINICAL HISTORY: hypoxia on eliquis, hx aspiration, back pain COMPARISON STUDY: CT of the abdomen and pelvis November 28, 2020 TECHNIQUE: Following IV administration of 109 mL of Optiray, axial images of the abdomen and pelvis were obtained from the lung bases to the proximal femurs. Images were reviewed in the axial, sagittal, and coronal planes. IV contrast was administered without complication. Automated exposure control was utilized for the study. A dose lowering technique was utilized adhering to the principles of ALARA. FINDINGS: Please note that the chest CT will be reported separately. This exam is compromised given difficulty positioning and motion artifact. No pneumatosis, free air or portal venous gas is present. Liver, spleen, adrenal glands, right kidney and pancreas are grossly unremarkable. There is no biliary or pancreatic ductal dilatation. Left renal cyst is noted. There is a 4 mm left renal calculus. No ureteral calculi are identified. Multiple calculi present. A density within the base of the bladder likely reflects an enlarged prostate. This is unchanged. There is no evidence for a bowel obstruction. Large amount of stool within the rectum is noted. No hemoperitoneum is noted. There is no retroperitoneal hematoma. No acute fracture is identified within the visualized skeletal structures. Bilateral inguinal hernias are noted. IMPRESSION: 1. Exam compromised given motion artifact and difficulty positioning. 2. No acute process within the abdomen or pelvis. 3. Multiple bladder calculi. 4 mm left renal calculus. No ureteral calculi. 2. Density within the base of the bladder which likely reflects an enlarged prostate. The bladder mass is considered considered much less likely. ACT 112: Negative or not required by law. Electronically signed by: Bigg Rudolph M.D. 03/01/2021 1:37 PM Dictated:03/01/211330 Transcribed: 03/01/211330 CT SCAN OF THE BRAIN WITHOUT IV CONTRAST CLINICAL HISTORY: Change in mental status. Unresponsive. COMPARISON STUDY: CT of the brain dated 12/06/2020. TECHNIQUE: Unenhanced axial CT scan of the brain is performed from the vertex to the skull base. A dose lowering technique was utilized adhering to the principles of ALARA. The patient was scanned twice due to motion artifact. The examination is severely degraded by motion artifact. The patient was scanned 3 times in an effort to improve image quality. CT DOSE: 1919.58 mGy.cm FINDINGS: Brain parenchyma: Right MCA territory encephalomalacia is consistent with a remote infarct and unchanged. A small chronic lacunar infarct is also seen in the left parietal lobe. There are age-related involutional changes noting mild subcortical and periventricular microangiopathic change. [place]ian degeneration is noted in the right aspect of the zohaib. There is no hemorrhage, mass effect, or evidence of acute territorial ischemia by CT criteria. Caraballo-white matter differentiation is preserved. No extra-axial fluid collection is seen. Ventricles, sulci, cisterns: Prominent secondary to involutional change. Intracranial vasculature: There is atherosclerotic calcification of the cavernous carotid and vertebral arteries. Calvarium: Unremarkable. Sinuses and mastoids: The paranasal sinuses are clear. The mastoid air cells are well pneumatized. Orbits: The bony orbits are grossly intact. There are bilateral ocular lens implants. IMPRESSION: 1. There is no hemorrhage, mass effect, or evidence of acute territorial ischemia by CT criteria noting a significantly motion compromised examination. 2. Remote infarcts are unchanged. ACT 112: Negative or not required by law.' Electronically signed by: Driss Villalba M.D. 03/01/2021 1:17 PM Dictated:03/01/21 1314 Transcribed: 03/01/21 131 XR chest 1V portable CLINICAL HISTORY: ILLNESS COMPARISON STUDY: Chest radiograph December 08, 2020. Chest CT performed earlier today. FINDINGS: There is a small left pleural effusion with left basilar opacity. No pneumothorax is present. There is underlying emphysema. Mild cardiomegaly is noted. There is subtle interstitial thickening. IMPRESSION: 1. Slight increase in a small left pleural effusion with left basilar opacity. 2. Subtle interstitial thickening. This favors pulmonary edema superimposed upon emphysema. ACT 112: Negative or not required by law. Electronically signed by: Bigg Rudolph M.D. 03/01/2021 2:02 PM Dictated:03/01/21 1400 Transcribed: 03/01/21 1400 Hospital Course (1) Episode of unresponsiveness: Etiology unknown Might be due to hypoxia CT head showed no acute intracranial abnormality ECHO showed mild reduced LV systolic function,with EF 40 to 45 %. mild to moderate hypokinesis of the anterior, anterolateral, inferolateral and inferior tracy, otherwise, normal wall motion Continue PT/OT Fall precaution Clinically improves (2) Aspiration into lower respiratory tract: (3) COPD (chronic obstructive pulmonary disease): (4) Hypoxia: Possible related to aspiration Repeat CXR this morning showed small left pleural effusion and left basilar airspace opacities persist. Lasix 20mg IV x1 given on admission - On Unasyn IV, Will transition to Augmentin Speech on board recommended easy to chew diet and nectar thick liquid Continue aspiration precaution Will try to wean off oxygen supplement (5) History of CVA (cerebrovascular accident): Hx of such, chronic, left hemiplegia, dysarthria is mild, some memory impairment but answers all questions appropriately. CT head negative Continue statin, plavix and Eliquis (6) Atrial fibrillation: rate control with metoprolol tartrate, amiodarone Continue eliquis (7) CAD (coronary artery disease): -Hx of such to LAD 2003 and 11/2019 on plavix, eliquis and metoprolol Stable (8) HTN (hypertension): - Cont lisinopril, metoprolol tartrate (9) Anemia: Hgb 11.4 No sign of active bleeding Continue monitor CBC (10) Hypercholesterolemia: -Cont atorvastatin 80 mg daily (11) BPH (benign prostatic hypertrophy): - Cont flomax DVT ppx: On eliquis CODE: Full code Dispo: Plan to discharge to [facility] Total Time Total Time Spent Total Time Spent (In Minutes): 35 minutes Discharge Plan Discharge Items Patient Disposition: [facility] Reason For Visit: UNRESPONSIVE EPISODE Discharge Diagnosis: Episode of unresponsiveness: Aspiration into lower respiratory tract: COPD (chronic obstructive pulmonary disease): Hypoxia: History of CVA (cerebrovascular accident): Atrial fibrillation: CAD (coronary artery disease): HTN (hypertension): Activity: Resume your previous activity Non-emergency contact: Primary Care Provider Call non-emergency contact if: you have any medication questions Follow-up/Referrals: Yanni Ferreira [Primary Care Provider] - Diet: Heart Healthy Diet Texture: Easy to Chew Addtl Attending Provider Instructions: Follow up with your primary care provider at [facility] Fall precaution Complete the course of the antibiotic Aspiration precaution (give meds in a carrier and no straw Check BMP in 1 week to monitor your electrolytes Pending Studies at Discharge: No Stand-Alone Forms: [facility] Skilled Items Patient informed of condition?: Yes DNR: No Discharge Level of Care: Skilled Communicable Disease: No Discharge Prognosis: Stable Lines: None Urinary Catheter: No Medications and DC Order Prescriptions: Continued multivitamin [Daily Multi-Vitamin] tablet 1 tab PO QAM RF: 0 acetaminophen [Tylenol] 325 mg Tablet 650 mg PO Q4H PRN (Reason: TEMP >100/PAIN) RF: 0 amiodarone [Pacerone] 200 mg tablet 200 mg PO QAM RF: 0 tamsulosin [Flomax] 0.4 mg capsule 0.4 mg PO QDD RF: 0 ropinirole 0.5 mg tablet 0.5 mg PO QID RF: 0 gabapentin [Neurontin] 100 mg capsule 100 mg PO TID RF: 0 fluoxetine [Prozac] 20 mg capsule 20 mg PO QAM RF: 0 finasteride [Proscar] 5 mg tablet 5 mg PO QAM RF: 0 cholecalciferol (vitamin D3) [Vitamin D3] 25 mcg (1,000 unit) capsule 25 mcg PO QAM RF: 0 chlorhexidine gluconate [Peridex] 0.12 % mouthwash 1 applic PO TID RF: 0 Eliquis 5 mg tablet 5 mg PO BID RF: 0 atorvastatin [Lipitor] 80 mg tablet 80 mg PO QAM RF: 0 clopidogrel [Plavix] 75 mg tablet 75 mg PO QAM RF: 0 metoprolol tartrate 25 mg tablet 12.5 mg PO QAM RF: 0 calcium carbonate [Calcium Antacid] 200 mg calcium (500 mg) tablet,chewable 500 mg PO BID RF: 0 polyethylene glycol 3350 [Miralax] 17 gram Powder In Packet 17 g PO DAILY Qty: 30 RF: 0 pantoprazole 40 mg Tablet,Delayed Release (Dr/Ec) 40 mg PO BID Qty: 60 RF: 1 docusate sodium [Colace] 100 mg Capsule 100 mg PO BID Qty: 0 RF: 0 ferrous sulfate 325 mg (65 mg iron) Tablet 325 mg PO BID RF: 0 Phospha 250 Neutral 250 mg Tablet 1 tab PO QID RF: 0 lisinopril 2.5 mg Tablet 2.5 mg PO QAM RF: 0 Discharge Orders: Discharge Order (Routine); Ordered 03/04/21 Ordered By: Doreen Madden Admission Data Admit Date/Time: 03/01/21 16:57 Attending Provider: Doreen Madden Admit Provider: Doreen Madden Primary Care Provider: Yanni Ferreira Other Interventions: Discharge Summary Assessment (RN) Last Done: 03/04/21 13:38
== END 2021-03-04 14:04 ==
LOC: ED 11:58 → INTOOBSV 16:57 → 2N 16:57

== ENCOUNTER 2021-04-09 07:18 | Observation (INO) ==
[2021-04-09] MEDS ORDERED: SODIUM CHLORIDE 0.9% 1000ML 1,000 ML IV SCH (07:34)
--- NOTE | 2021-04-09 07:39 | Emergency Department Note ---
Impression & Plan Unresponsive, Elevated lactic acid level, Acute UTI ED Provider Note NAME: ELVA SANON AGE: 70 SEX: M : 1950 ARRIVES VIA: Ambulance INFORMANT: Patient ED PROVIDER(S): Yong Plata DO CHIEF COMPLAINT: Unresponsive episode HPI: Patient is a 70-year-old Male Resident at [facility] with a PMH of CVA with left-sided hemiplegia, CAD with GEORGIE placement, CHF, A. fib, hx of PE,hypertension, hyperlipidemia, anemia, hx GI bleed, and BPH. Patient p resents to the ER for an episode of unresponsiveness with agonal breathing and vomiting. They are concerned that he may have aspirated. He was found to be hypoxic and placed on nasal cannula following this. He was confused after the incident. Currently he denies any headache or change in vision. No chest pain but does complain of back pain. There is some report of possible UTI. Denies any dysuria, urgency, or frequency. ROS: See above HPI for pertinent positives & negatives. A total of 10 systems reviewed and were otherwise negative. PAST MEDICAL HISTORY:See Below PAST SURGICAL HISTORY:See Below FAMILY HISTORY:See Below SOCIAL HISTORY:See Below HOME MEDICATIONS:See Below ALLERGIES:See Below VITALS:See Below PHYSICAL EXAMINATION: GENERAL: Sitting up in bed, alert, chronically ill-appearing laying on his left side disheveled in position EYE EXAM: normal conjunctiva. PERRL and EOM's grossly intact. OROPHARYNX: no exudate, no erythema, lips, buccal mucosa, and tongue normal and mucous membranes are moist NECK: supple, no nuchal rigidity, no adenopathy, non-tender LUNGS: Clear to auscultation. Normal chest wall mechanics HEART: no murmurs, S1 normal and S2 normal ABDOMEN: abdomen soft, non-tender, normo-active bowel sounds, no masses, no rebound or guarding. BACK: Back is symmetrical on inspection and there is no deformity, tenderness over the right SI and right lower back UPPER EXTREMITIES: upper extremities are grossly normal. LOWER EXTREMITIES: No pitting edema. NEURO EXAM: Awake alert following commands oriented to person place but not year. MEDICAL DECISION MAKING: Patient is a 70-year-old male brought in for an episode of unresponsiveness. IV was established blood was obtained. Labs show mild leukocytosis 11.6 thousand. Hemoglobin slightly appropriate 13. INR unremarkable. BMP with elevated chloride. LFTs bilirubin and troponin was negative. Lactate was elevated. UA does suggest UTI but this was obtained after admission. CT head was negative. CT head was negative. Chest x-ray was fairly unchanged. He was given IV fluids and was able to converse with me at bedside. He was updated and discussed with the hospitalist for further evaluation. Triage Nursing notes reviewed. Limited review of prior medical records performed Vital Signs: reviewed and remarkable for no significant abnormalities Differential diagnosis: Differential diagnoses includes but is not limited to toxic, metabolic, infectious, traumatic, cardiac, neurologic, hematologic, psychiatric and inflammatory etiologies. ER treatment provided: See below Diagnostics interpreted by me: ECG: Sinus rhythm rate 92 Normal axis No PVCs QTC [address] wave changes in the lateral leads Cardiac Monitoring: An order was placed for continuous cardiac monitoring. The monitor shows a rate of 90 with sinus rhythm. Laboratory studies: As stated above and show below. Imaging studies: CTs of the head was unremarkable. Chest x-ray was unremarkable. 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) Episode of unresponsiveness GIB (gastrointestinal bleeding) Hematuria Hypercholesterolemia Hypoxia Osteoporosis Pulmonary embolism Rectal bleeding Renal calculi ST elevation myocardial infarction (STEMI) Tobacco use UTI (urinary tract infection) Surgical History History of hernia repair Presence of stent in coronary artery S/P drug eluting coronary stent placement S/P PTCA (percutaneous transluminal coronary angioplasty) Family History Denies family history of Ovarian cancer Prostate cancer Myocardial infarction Breast cancer Colorectal cancer Social History Smoking Status: Former smoker Tobacco Type: Cigarettes Hx Alcohol Use: No Hx Substance Use: No Preferred Language: Kinyarwanda Communication Ability: Unable 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 Beliefs That Will Affect Care: None marital status: Current Living Situation: [facility] Current Living Situation Comment: [facility] (for rehab per pt) current occupational status: employed and retired current occupation: [employer] Feels Safe at Home: Yes Dental Care, Regularly: No Physical Activity Frequency: Does not Exercise Assistive Devices: None Allergies Allergies Allergy/AdvReac Type Severity Reaction Status Date / Time No Known Allergies Allergy Verified 04/09/21 09:10 Home Meds Home Medications Medication Instructions Recorded Confirmed multivitamin (Daily Multi-Vitamin) 1 tab PO QAM 11/03/18 04/09/21 acetaminophen 325 mg tablet 650 mg PO Q4H PRN 09/15/20 04/09/21 (Tylenol) amiodarone 200 mg tablet (Pacerone) 200 mg PO QAM 09/15/20 04/09/21 apixaban 5 mg tablet (Eliquis) 5 mg PO BID 09/15/20 04/09/21 atorvastatin 80 mg tablet (Lipitor) 80 mg PO QAM 09/15/20 04/09/21 chlorhexidine gluconate 0.12 % 1 applic PO TID 09/15/20 04/09/21 mouthwash (Peridex) cholecalciferol (vitamin D3) 25 25 mcg PO QAM 09/15/20 04/09/21 mcg (1,000 unit) capsule (Vitamin D3) clopidogrel 75 mg tablet (Plavix) 75 mg PO QAM 09/15/20 04/09/21 finasteride 5 mg tablet (Proscar) 5 mg PO QAM 09/15/20 04/09/21 gabapentin 100 mg capsule 100 mg PO TID 09/15/20 04/09/21 (Neurontin) metoprolol tartrate 25 mg tablet 12.5 mg PO QAM 09/15/20 04/09/21 ropinirole 0.5 mg tablet 0.5 mg PO QID 09/15/20 04/09/21 tamsulosin 0.4 mg capsule (Flomax) 0.4 mg PO QDD 09/15/20 04/09/21 calcium carbonate 200 mg calcium 500 mg PO BID 11/28/20 04/09/21 (500 mg) chewable tablet (Calcium Antacid) ferrous sulfate 325 mg (65 mg 325 mg PO BID 03/01/21 04/09/21 iron) tablet lisinopril 2.5 mg tablet 2.5 mg PO QAM 03/01/21 04/09/21 sodium di- and 1 tab PO QID 03/01/21 04/09/21 monophosphate-potassium phos monobasic 250 mg tablet (Phospha 250 Neutral) fluoxetine 10 mg capsule 10 mg PO QAM 04/09/21 04/09/21 Previous Rx's Medication Instructions Recorded docusate sodium 100 mg capsule 100 mg PO BID #0 cap 12/10/20 (Colace) pantoprazole 40 mg tablet,delayed 40 mg PO BID #60 tab 12/10/20 release polyethylene glycol 3350 17 gram 17 g PO DAILY #30 ea 12/10/20 oral powder packet (Miralax) Results & Data (ED) Vital Signs Vital Signs - 24 hr 04/09/21 08:22 04/09/21 08:28 04/09/21 10:29 Temperature 37.3 C 37.2 C Temperature Source Oral Oral Pulse Rate 80 Pulse Rate [Apical] 95 H Respiratory Rate 18 20 Respiratory Effort / Characteristics Non-Labored Non-Labored Respiratory Depth Normal Normal Blood Pressure [Right Arm] 130/59 L Blood Pressure Mean [Right Arm] 82 Pulse Oximetry 94 92 95 Oxygen Delivery Method Nasal Cannula Nasal Cannula Nasal Cannula Oxygen Flow Rate 2 2 2 Sepsis Recent Fever Within 48 Hours Yes Sepsis New/Unexplained Change in Mental Status Yes Sepsis Action Taken by Nursing Physician Notified Laboratory Data Result diagrams: 04/09/21 07:38 04/09/21 07:38 Lab Results 04/09/21 04/09/21 04/09/21 Range/Units 07:38 07:38 07:38 WBC 11.67 H (4.8-10.8) K/uL RBC 4.60 L (4.7-6.1) M/uL Hgb 13.3 L (14.0-18.0) g/dL POC Hgb (14.0-18.0) g/dl Hct 40.5 L (42-52) % POC Hct (42-52) % MCV 88.0 (80-100) fL MCH 28.9 (25-34) pg MCHC 32.8 (32-36) g/dL RDW Std Deviation 55.8 H (36.4-46.3) fL RDW Coeff of Markell 17.6 H (11.5-14.5) % Plt Count 137 (130-400) K/uL MPV 9.8 (7.4-10.4) fL Immature Gran % (Auto) 0.3 % Neut % (Auto) 93.9 % Lymph % (Auto) 2.5 % [place] % (Auto) 2.6 % Eos % (Auto) 0.5 % Baso % (Auto) 0.2 % Neut # (Auto) 10.97 H (1.4-6.5) K/uL Lymph # (Auto) 0.29 L (1.2-3.4) K/uL [place] # (Auto) 0.30 (0.11-0.59) K/uL Eos # (Auto) 0.06 (0-0.5) K/uL Baso # (Auto) 0.02 (0-0.2) K/uL Immature Gran # (Auto) 0.03 H (0.00-0.02) K/uL PT 10.7 (9.0-12.0) Seconds INR 1.1 (0.9-1.1) APTT 23.4 (21.0-31.0) Seconds PTT Ratio 0.9 POC Sodium (135-144) mmol/L Sodium 143 (136-145) mmol/L POC Potassium (3.3-5.0) mmol/L Potassium 3.8 (3.5-5.1) mmol/L POC Chloride (101-112) mmol/L Chloride 111 H (98-107) mmol/L Carbon Dioxide 22 (21-32) mmol/L POC Total CO2 (24-31) mmol/L Anion Gap 10.0 (3-11) POC Anion Gap (16-25) mmol/L POC BUN (7-18) mg/dl BUN 15 (7-18) mg/dl Creatinine 1.12 (0.6-1.4) mg/dl POC Creatinine (0.6-1.3) mg/dl Est Cr Clr Drug Dosing Not Reportable Est GFR ( Amer) 75.7 ml/min Est GFR (Non-Af Amer) 65.3 ml/min BUN/Creatinine Ratio 13.5 (10-20) Glucose 95 (70-99) mg/dl POC Glucose (other) (70-99) mg/dl Lactate (0.4-2.0) mmol/L Calcium 9.0 (8.5-10.1) mg/dl POC Ioniz Calcium Beatriz (1.12-1.32) mmol/l Phosphorus (2.5-4.9) mg/dl Magnesium 1.9 (1.8-2.4) mg/dl Total Bilirubin 0.8 (0.2-1) mg/dl AST 17 (15-37) U/L ALT 30 (12-78) U/L Alkaline Phosphatase 98 (45-117) U/L Troponin I < 0.015 (0-0.045) ng/ml Total Protein 6.3 L (6.4-8.2) gm/dl Albumin 3.1 L (3.4-5.0) gm/dl Globulin 3.2 (2.5-4.0) gm/dl Albumin/Globulin Ratio 1.0 (0.9-2) Procalcitonin (0-0.5) ng/ml Urine Color Urine Appearance (Clear) Urine pH (4.5-7.5) Ur Specific [place] (1.000-1.030) Urine Protein (Negative) Urine Glucose (UA) (Negative) Urine Ketones (Negative) Urine Blood (Negative) Urine Nitrite (Negative) Urine Bilirubin (Negative) Urine Urobilinogen (Negative) Ur Leukocyte Esterase (Negative) Urine WBC (Auto) (0-5) /hpf Urine RBC (Auto) (0-4) /hpf U Hyaline Cast (Auto) (0-5) /lpf U Epithel Cells (Auto) (0-5) /lpf Urine Bacteria (Auto) (Negative) SARS-CoV-2 (PCR) (Negative) 04/09/21 04/09/21 04/09/21 Range/Units 07:38 07:44 07:50 WBC (4.8-10.8) K/uL RBC (4.7-6.1) M/uL Hgb (14.0-18.0) g/dL POC Hgb (14.0-18.0) g/dl Hct (42-52) % POC Hct (42-52) % MCV (80-100) fL MCH (25-34) pg MCHC (32-36) g/dL RDW Std Deviation (36.4-46.3) fL RDW Coeff of Markell (11.5-14.5) % Plt Count (130-400) K/uL MPV (7.4-10.4) fL Immature Gran % (Auto) % Neut % (Auto) % Lymph % (Auto) % [place] % (Auto) % Eos % (Auto) % Baso % (Auto) % Neut # (Auto) (1.4-6.5) K/uL Lymph # (Auto) (1.2-3.4) K/uL [place] # (Auto) (0.11-0.59) K/uL Eos # (Auto) (0-0.5) K/uL Baso # (Auto) (0-0.2) K/uL Immature Gran # (Auto) (0.00-0.02) K/uL PT (9.0-12.0) Seconds INR (0.9-1.1) APTT (21.0-31.0) Seconds PTT Ratio POC Sodium (135-144) mmol/L Sodium (136-145) mmol/L POC Potassium (3.3-5.0) mmol/L Potassium (3.5-5.1) mmol/L POC Chloride (101-112) mmol/L Chloride (98-107) mmol/L Carbon Dioxide (21-32) mmol/L POC Total CO2 (24-31) mmol/L Anion Gap (3-11) POC Anion Gap (16-25) mmol/L POC BUN (7-18) mg/dl BUN (7-18) mg/dl Creatinine (0.6-1.4) mg/dl POC Creatinine (0.6-1.3) mg/dl Est Cr Clr Drug Dosing Est GFR ( Amer) ml/min Est GFR (Non-Af Amer) ml/min BUN/Creatinine Ratio (10-20) Glucose (70-99) mg/dl POC Glucose (other) (70-99) mg/dl Lactate 3.4 H* (0.4-2.0) mmol/L Calcium (8.5-10.1) mg/dl POC Ioniz Calcium Beatriz (1.12-1.32) mmol/l Phosphorus 2.6 (2.5-4.9) mg/dl Magnesium (1.8-2.4) mg/dl Total Bilirubin (0.2-1) mg/dl AST (15-37) U/L ALT (12-78) U/L Alkaline Phosphatase (45-117) U/L Troponin I (0-0.045) ng/ml Total Protein (6.4-8.2) gm/dl Albumin (3.4-5.0) gm/dl Globulin (2.5-4.0) gm/dl Albumin/Globulin Ratio (0.9-2) Procalcitonin 0.38 (0-0.5) ng/ml Urine Color Urine Appearance (Clear) Urine pH (4.5-7.5) Ur Specific [place] (1.000-1.030) Urine Protein (Negative) Urine Glucose (UA) (Negative) Urine Ketones (Negative) Urine Blood (Negative) Urine Nitrite (Negative) Urine Bilirubin (Negative) Urine Urobilinogen (Negative) Ur Leukocyte Esterase (Negative) Urine WBC (Auto) (0-5) /hpf Urine RBC (Auto) (0-4) /hpf U Hyaline Cast (Auto) (0-5) /lpf U Epithel Cells (Auto) (0-5) /lpf Urine Bacteria (Auto) (Negative) SARS-CoV-2 (PCR) (Negative) 04/09/21 04/09/21 04/09/21 Range/Units 08:00 09:40 10:00 WBC (4.8-10.8) K/uL RBC (4.7-6.1) M/uL Hgb (14.0-18.0) g/dL POC Hgb 13.3 L (14.0-18.0) g/dl Hct (42-52) % POC Hct 39 L (42-52) % MCV (80-100) fL MCH (25-34) pg MCHC (32-36) g/dL RDW Std Deviation (36.4-46.3) fL RDW Coeff of Markell (11.5-14.5) % Plt Count (130-400) K/uL MPV (7.4-10.4) fL Immature Gran % (Auto) % Neut % (Auto) % Lymph % (Auto) % [place] % (Auto) % Eos % (Auto) % Baso % (Auto) % Neut # (Auto) (1.4-6.5) K/uL Lymph # (Auto) (1.2-3.4) K/uL [place] # (Auto) (0.11-0.59) K/uL Eos # (Auto) (0-0.5) K/uL Baso # (Auto) (0-0.2) K/uL Immature Gran # (Auto) (0.00-0.02) K/uL PT (9.0-12.0) Seconds INR (0.9-1.1) APTT (21.0-31.0) Seconds PTT Ratio POC Sodium 142 (135-144) mmol/L Sodium (136-145) mmol/L POC Potassium 3.8 (3.3-5.0) mmol/L Potassium (3.5-5.1) mmol/L POC Chloride 106 (101-112) mmol/L Chloride (98-107) mmol/L Carbon Dioxide (21-32) mmol/L POC Total CO2 24 (24-31) mmol/L Anion Gap (3-11) POC Anion Gap 17.0 (16-25) mmol/L POC BUN 16 (7-18) mg/dl BUN (7-18) mg/dl Creatinine (0.6-1.4) mg/dl POC Creatinine 0.9 (0.6-1.3) mg/dl Est Cr Clr Drug Dosing Est GFR ( Amer) ml/min Est GFR (Non-Af Amer) ml/min BUN/Creatinine Ratio (10-20) Glucose (70-99) mg/dl POC Glucose (other) 91 (70-99) mg/dl Lactate (0.4-2.0) mmol/L Calcium (8.5-10.1) mg/dl POC Ioniz Calcium Beatriz 1.19 (1.12-1.32) mmol/l Phosphorus (2.5-4.9) mg/dl Magnesium (1.8-2.4) mg/dl Total Bilirubin (0.2-1) mg/dl AST (15-37) U/L ALT (12-78) U/L Alkaline Phosphatase (45-117) U/L Troponin I (0-0.045) ng/ml Total Protein (6.4-8.2) gm/dl Albumin (3.4-5.0) gm/dl Globulin (2.5-4.0) gm/dl Albumin/Globulin Ratio (0.9-2) Procalcitonin (0-0.5) ng/ml Urine Color Yellow Urine Appearance Cloudy A (Clear) Urine pH 6.0 (4.5-7.5) Ur Specific [place] 1.016 (1.000-1.030) Urine Protein 1+ H (Negative) Urine Glucose (UA) Negative (Negative) Urine Ketones Negative (Negative) Urine Blood 3+ H (Negative) Urine Nitrite Negative (Negative) Urine Bilirubin Negative (Negative) Urine Urobilinogen Negative (Negative) Ur Leukocyte Esterase 3+ H (Negative) Urine WBC (Auto) >30 H (0-5) /hpf Urine RBC (Auto) >30 H (0-4) /hpf U Hyaline Cast (Auto) 1-5 (0-5) /lpf U Epithel Cells (Auto) 0-5 (0-5) /lpf Urine Bacteria (Auto) 3+ H (Negative) SARS-CoV-2 (PCR) NEGATIVE (Negative) 04/09/21 Range/Units 10:02 WBC (4.8-10.8) K/uL RBC (4.7-6.1) M/uL Hgb (14.0-18.0) g/dL POC Hgb (14.0-18.0) g/dl Hct (42-52) % POC Hct (42-52) % MCV (80-100) fL MCH (25-34) pg MCHC (32-36) g/dL RDW Std Deviation (36.4-46.3) fL RDW Coeff of Markell (11.5-14.5) % Plt Count (130-400) K/uL MPV (7.4-10.4) fL Immature Gran % (Auto) % Neut % (Auto) % Lymph % (Auto) % [place] % (Auto) % Eos % (Auto) % Baso % (Auto) % Neut # (Auto) (1.4-6.5) K/uL Lymph # (Auto) (1.2-3.4) K/uL [place] # (Auto) (0.11-0.59) K/uL Eos # (Auto) (0-0.5) K/uL Baso # (Auto) (0-0.2) K/uL Immature Gran # (Auto) (0.00-0.02) K/uL PT (9.0-12.0) Seconds INR (0.9-1.1) APTT (21.0-31.0) Seconds PTT Ratio POC Sodium (135-144) mmol/L Sodium (136-145) mmol/L POC Potassium (3.3-5.0) mmol/L Potassium (3.5-5.1) mmol/L POC Chloride (101-112) mmol/L Chloride (98-107) mmol/L Carbon Dioxide (21-32) mmol/L POC Total CO2 (24-31) mmol/L Anion Gap (3-11) POC Anion Gap (16-25) mmol/L POC BUN (7-18) mg/dl BUN (7-18) mg/dl Creatinine (0.6-1.4) mg/dl POC Creatinine (0.6-1.3) mg/dl Est Cr Clr Drug Dosing Est GFR ( Amer) ml/min Est GFR (Non-Af Amer) ml/min BUN/Creatinine Ratio (10-20) Glucose (70-99) mg/dl POC Glucose (other) (70-99) mg/dl Lactate 1.7 (0.4-2.0) mmol/L Calcium (8.5-10.1) mg/dl POC Ioniz Calcium Beatriz (1.12-1.32) mmol/l Phosphorus (2.5-4.9) mg/dl Magnesium (1.8-2.4) mg/dl Total Bilirubin (0.2-1) mg/dl AST (15-37) U/L ALT (12-78) U/L Alkaline Phosphatase (45-117) U/L Troponin I (0-0.045) ng/ml Total Protein (6.4-8.2) gm/dl Albumin (3.4-5.0) gm/dl Globulin (2.5-4.0) gm/dl Albumin/Globulin Ratio (0.9-2) Procalcitonin (0-0.5) ng/ml Urine Color Urine Appearance (Clear) Urine pH (4.5-7.5) Ur Specific [place] (1.000-1.030) Urine Protein (Negative) Urine Glucose (UA) (Negative) Urine Ketones (Negative) Urine Blood (Negative) Urine Nitrite (Negative) Urine Bilirubin (Negative) Urine Urobilinogen (Negative) Ur Leukocyte Esterase (Negative) Urine WBC (Auto) (0-5) /hpf Urine RBC (Auto) (0-4) /hpf U Hyaline Cast (Auto) (0-5) /lpf U Epithel Cells (Auto) (0-5) /lpf Urine Bacteria (Auto) (Negative) SARS-CoV-2 (PCR) (Negative) Administered Medications Discontinued Medications Amiodarone HCl (Amiodarone 200 Mg Tab) 200 mg PO NOW ONE Stop: 04/09/21 11:02 Last Admin: 04/09/21 13:18 Dose: 200 mg Documented by: [id number] Apixaban (Apixaban 5 Mg Tablet) 5 mg PO NOW STA Stop: 04/09/21 10:58 Last Admin: 04/09/21 13:18 Dose: 5 mg Documented by: [id number] Sodium Chloride (Nss 1000ml) 1,000 mls @ 999 mls/hr IV .Q1H1M EMORY Stop: 04/09/21 08:34 Last Infusion: 04/09/21 11:43 Dose: 0 mls/hr Documented by: [id number] Admin: 04/09/21 08:38 Dose: 999 mls/hr Documented by: [id number] Cefepime HCl 1,000 mg/ Syringe 11.3 mls @ 5.5 mls/min IV NOW STA; Protocol Stop: 04/09/21 09:44 Last Admin: 04/09/21 10:43 Dose: 5.5 mls/min Documented by: [id number] Ioversol (Optiray 320 100ml) 95 ml IV ONCE ONE Stop: 04/09/21 09:36 Last Admin: 04/09/21 09:29 Dose: 95 ml Documented by: [id number] Lisinopril (Lisinopril 2.5 Mg Tab) 2.5 mg PO NOW ONE Stop: 04/09/21 10:58 Last Admin: 04/09/21 13:18 Dose: 2.5 mg Documented by: [id number] Imaging Data Radiologist's Impression: Chest X-Ray 04/09/21 07:33 XR chest 1V portable CLINICAL HISTORY: SEPSIS. Evaluate cardiopulmonary status COMPARISON STUDY: 03/02/2021 TECHNIQUE: 1 view of the chest FINDINGS: Single frontal view of the chest demonstrates the heart to be mildly enlarged. There is hyperinflation of the lungs with attenuation of the pulmonary vasculature peripherally characteristic of underlying chronic obstructive pulmonary disease. Compared to previous examination, diffuse prominence interstitial markings is again seen which is greater on the left. Small left pl eural effusion and left basilar atelectasis are again seen. No confluent alveolar opacities are identified. There is no evidence for vascular congestion. There is no acute osseous pathology. IMPRESSION: Compared to the previous examination, there is again evidence for COPD with interstitial prominence. Small left pleural effusion and left basilar atelectasis are also present. ACT 112: Negative or not required by law. Electronically signed by: Davy Delcid M.D. 04/09/2021 8:[address] 04/09/21 07:34 CT head/brain wo con CLINICAL HISTORY: seizure COMPARISON STUDY: 03/01/2021 CT DOSE: 614.27 mGy.cm TECHNIQUE: Standard CT of the Brain was performed without IV contrast. A dose lowering technique was utilized adhering to the principles of ALARA. FINDINGS: Extraaxial space: There is no evidence for subdural hematoma. There are no extra-axial fluid collections. Ventricles and cisterns: The ventricles are normal in size and configuration. There is no evidence for midline shift or mass effect. Parenchyma: There is no subarachnoid or intraparenchymal hemorrhage. There is no evidence for an acute infarct or cerebral edema. There is again a large area of encephalomalacia involving the distribution of the right middle cerebral artery representing an old infarct. It is unchanged. There is homogeneous attenuation of the remaining brain parenchyma. There are no gross mass lesions. Osseous structures: There is no evidence for an acute fracture. The visualized paranasal sinuses are clear. The mastoid air cells are clear bilaterally. Soft tissues: There is no evidence for focal soft tissue swelling. IMPRESSION: No acute intracerebral pathology. Old right MCA infarct. ACT 112: Negative or not required by law. Electronically signed by: Davy Delcid M.D. 04/09/2021 9:51 AM Abdomen/Pelvis CT 04/09/21 07:39 CT OF THE ABDOMEN AND PELVIS WITH CONTRAST CLINICAL HISTORY: Abdominal pain. COMPARISON STUDY: CT of the abdomen and pelvis March 01, 2021. TECHNIQUE: Following IV administration of 95 mL of Optiray, axial images of the abdomen and pelvis were obtained from the lung bases to the proximal femurs. Images were reviewed in the axial, sagittal, and coronal planes. IV contrast was administered without complication. Automated exposure control was utilized for the study. A dose lowering technique was utilized adhering to the principles of ALARA. CT DOSE: 628.67 mGy.cm FINDINGS: Emphysema is noted within the lower lungs. Lower lung airspace opacities favor atelectasis. This exam is compromised by difficulty positioning and motion artifact. The liver, spleen, adrenal glands, right kidney and pancreas are unremarkable. There is no biliary or pancreatic ductal dilatation. 2.5 cm left renal cyst is noted. There is a 4 mm calculus within the upper pole the left kidney. There are no ureteral calculi. There is no hydronephrosis. There are layering calculi within the bladder. Bladder is mildly distended. Prostate is enlarged and indents the base of the bladder. There is no evidence for a bowel obstruction. Caliber and wall thickness of small and large bowel are normal. There is a moderate amount of stool within the distal colon and rectum. No ascites is present. There is no lymphadenopathy. No acute fracture or suspicious lesion is identified within the visualized skeletal structures. There may be a right hydrocele. IMPRESSION: 1. No acute process within the abdomen or pelvis although exam compromised given difficulty positioning and motion artifact. 2. 4 mm left renal calculus. Multiple layering bladder calculi. No ureteral calculi or hydronephrosis. Enlarged prostate which indents the base of the bladder. 3. No bowel obstruction. Moderate amount stool within the distal colon and rectum. 4. Emphysema. ACT 112: Negative or not required by law. Electronically signed by: Bigg Rudolph M.D. 04/09/2021 9:45 AM Discharge Plan Visit Data Chief Complaint: Illness ED Provider: Yong Plata Discharge Problem: Unresponsive, Elevated lactic acid level, Acute UTI Forms Stand Alone Forms: My [facility] Prescriptions Prescriptions: No Action multivitamin [Daily Multi-Vitamin] tablet 1 tab PO QAM RF: 0 acetaminophen [Tylenol] 325 mg Tablet 650 mg PO Q4H PRN (Reason: TEMP >100/PAIN) RF: 0 amiodarone [Pacerone] 200 mg tablet 200 mg PO QAM RF: 0 tamsulosin [Flomax] 0.4 mg capsule 0.4 mg PO QDD RF: 0 ropinirole 0.5 mg tablet 0.5 mg PO QID RF: 0 gabapentin [Neurontin] 100 mg capsule 100 mg PO TID RF: 0 finasteride [Proscar] 5 mg tablet 5 mg PO QAM RF: 0 cholecalciferol (vitamin D3) [Vitamin D3] 25 mcg (1,000 unit) capsule 25 mcg PO QAM RF: 0 chlorhexidine gluconate [Peridex] 0.12 % mouthwash 1 applic PO TID RF: 0 Eliquis 5 mg tablet 5 mg PO BID RF: 0 atorvastatin [Lipitor] 80 mg tablet 80 mg PO QAM RF: 0 clopidogrel [Plavix] 75 mg tablet 75 mg PO QAM RF: 0 metoprolol tartrate 25 mg tablet 12.5 mg PO QAM RF: 0 calcium carbonate [Calcium Antacid] 200 mg calcium (500 mg) tablet,chewable 500 mg PO BID RF: 0 polyethylene glycol 3350 [Miralax] 17 gram Powder In Packet 17 g PO DAILY Qty: 30 RF: 0 pantoprazole 40 mg Tablet,Delayed Release (Dr/Ec) 40 mg PO BID Qty: 60 RF: 1 docusate sodium [Colace] 100 mg Capsule 100 mg PO BID Qty: 0 RF: 0 ferrous sulfate 325 mg (65 mg iron) Tablet 325 mg PO BID RF: 0 Phospha 250 Neutral 250 mg Tablet 1 tab PO QID RF: 0 lisinopril 2.5 mg Tablet 2.5 mg PO QAM RF: 0 fluoxetine 10 mg Capsule 10 mg PO QAM RF: 0 Referrals Referrals: Yanni Ferreira [Primary Care Provider] -
[2021-04-09 07:55] LABS: Basophils # (auto) 0.02 K/uL (0-0.2); Basophils % (auto) 0.2 %; Eosinophils # (auto) 0.06 K/uL (0-0.5); Eosinophils % (auto) 0.5 %; Hematocrit (blood only) 40.5 % (42-52); Hemoglobin 13.3 g/dL (14.0-18.0); Immature Granulocytes # (auto) 0.03 K/uL (0.00-0.02); Immature Granulocytes % (auto) 0.3 %; Lymphocytes # (auto) 0.29 K/uL (1.2-3.4); Lymphocytes % (auto) 2.5 %; Mean Corpuscular Hemoglobin 28.9 pg (25-34); Mean Corpuscular Hgb Conc 32.8 g/dL (32-36); Mean Platelet Volume 9.8 fL (7.4-10.4); Monocytes % (auto) 2.6 %; Neutrophils # (auto) 10.97 K/uL (1.4-6.5); Neutrophils % (auto) 93.9 %; Platelet Count 137 K/uL (130-400); RDW Coefficient of Variation 17.6 % (11.5-14.5); RDW Standard Deviation 55.8 fL (36.4-46.3); White Blood Count 11.67 K/uL (4.8-10.8)
[2021-04-09 08:06] LABS: INR 1.1 (0.9-1.1); Partial Thromboplastin Ratio 0.9; Partial Thromboplastin Time 23.4 Seconds (21.0-31.0); Prothrombin Time 10.7 Seconds (9.0-12.0)
[2021-04-09 08:13] LABS: iSTAT Creatinine 0.9 mg/dl (0.6-1.3); iSTAT Hemoglobin 13.3 g/dl (14.0-18.0); iSTAT Ionized Calcium 1.19 mmol/l (1.12-1.32); iSTAT Potassium 3.8 mmol/L (3.3-5.0)
--- NOTE | 2021-04-09 08:13 | XRay Report ---
XR chest 1V portable CLINICAL HISTORY: SEPSIS. Evaluate cardiopulmonary status COMPARISON STUDY: 03/02/2021 TECHNIQUE: 1 view of the chest FINDINGS: Single frontal view of the chest demonstrates the heart to be mildly enlarged. There is hyperinflatio n of the lungs with attenuation of the pulmonary vasculature peripherally characteristic of underlyin g chronic obstructive pulmonary disease. Compared to previous examination, diffuse prominence interst itial markings is again seen which is greater on the left. Small left pleural effusion and left basil ar atelectasis are again seen. No confluent alveolar opacities are identified. There is no evidence f or vascular congestion. There is no acute osseous pathology. IMPRESSION: Compared to the previous examination, there is again evidence for COPD with interstitial prominence. Small left pleural effusion and left basilar atelectasis are also present. ACT 112: Negative or not required by law. Electronically signed by: Davy Delcid M.D. 04/09/2021 8:12 AM
[2021-04-09 08:24] LABS: Albumin Level 3.1 gm/dl (3.4-5.0); Aspartate Aminotransferase 17 U/L (15-37); BUN Creatinine Ratio 13.5 (10-20); Blood Urea Nitrogen 15 mg/dl (7-18); Carbon Dioxide 22 mmol/L (21-32); Chloride 111 mmol/L (98-107); Est GFR (African American) 75.7 ml/min; Est GFR (Non-African American) 65.3 ml/min; Glucose 95 mg/dl (70-99); Magnesium 1.9 mg/dl (1.8-2.4); Potassium 3.8 mmol/L (3.5-5.1); Sodium 143 mmol/L (136-145)
[2021-04-09 08:29] LABS: Alanine Aminotransferase 30 U/L (12-78); Alkaline Phosphatase 98 U/L (45-117); Bilirubin,Total 0.8 mg/dl (0.2-1); Globulin 3.2 gm/dl (2.5-4.0); Total Protein 6.3 gm/dl (6.4-8.2); Troponin I < 0.015 ng/ml (0-0.045)
[2021-04-09] MEDS ORDERED: OPTIRAY 320 100ml IV ONE (09:35)
[2021-04-09] MEDS ORDERED: CEFEPIME 1,000 MG in SYRINGE 0 ML IV STA (09:42)
--- NOTE | 2021-04-09 09:47 | CT Scan Report ---
CT OF THE ABDOMEN AND PELVIS WITH CONTRAST CLINICAL HISTORY: Abdominal pain. COMPARISON STUDY: CT of the abdomen and pelvis March 01, 2021. TECHNIQUE: Following IV administration of 95 mL of Optiray, axial images of the abdomen and pelvis we re obtained from the lung bases to the proximal femurs. Images were reviewed in the axial, sagittal, and coronal planes. IV contrast was administered without complication. Automated exposure control wa s utilized for the study. A dose lowering technique was utilized adhering to the principles of ALARA . CT DOSE: 628.67 mGy.cm FINDINGS: Emphysema is noted within the lower lungs. Lower lung airspace opacities favor atelectasis. This exam is compromised by difficulty positioning and motion artifact. The liver, spleen, adrenal g lands, right kidney and pancreas are unremarkable. There is no biliary or pancreatic ductal dilatatio n. 2.5 cm left renal cyst is noted. There is a 4 mm calculus within the upper pole the left kidney. T here are no ureteral calculi. There is no hydronephrosis. There are layering calculi within the bladd er. Bladder is mildly distended. Prostate is enlarged and indents the base of the bladder. There is n o evidence for a bowel obstruction. Caliber and wall thickness of small and large bowel are normal. T here is a moderate amount of stool within the distal colon and rectum. No ascites is present. There i s no lymphadenopathy. No acute fracture or suspicious lesion is identified within the visualized skel etal structures. There may be a right hydrocele. IMPRESSION: 1. No acute process within the abdomen or pelvis although exam compromised given difficulty positioni ng and motion artifact. 2. 4 mm left renal calculus. Multiple layering bladder calculi. No ureteral calculi or hydronephrosis . Enlarged prostate which indents the base of the bladder. 3. No bowel obstruction. Moderate amount stool within the distal colon and rectum. 4. Emphysema. ACT 112: Negative or not required by law. Electronically signed by: Bigg Rudolph M.D. 04/09/2021 9:45 AM
--- NOTE | 2021-04-09 09:53 | CT Scan Report ---
CT head/brain wo con CLINICAL HISTORY: seizure COMPARISON STUDY: 03/01/2021 CT DOSE: 614.27 mGy.cm TECHNIQUE: Standard CT of the Brain was performed without IV contrast. A dose lowering technique was utilized adhering to the principles of ALARA. FINDINGS: Extraaxial space: There is no evidence for subdural hematoma. There are no extra-axial fluid collecti ons. Ventricles and cisterns: The ventricles are normal in size and configuration. There is no evidence f or midline shift or mass effect. Parenchyma: There is no subarachnoid or intraparenchymal hemorrhage. There is no evidence for an acu te infarct or cerebral edema. There is again a large area of encephalomalacia involving the distribut ion of the right middle cerebral artery representing an old infarct. It is unchanged. There is homoge neous attenuation of the remaining brain parenchyma. There are no gross mass lesions. Osseous structures: There is no evidence for an acute fracture. The visualized paranasal sinuses are clear. The mastoid air cells are clear bilaterally. Soft tissues: There is no evidence for focal soft tissue swelling. IMPRESSION: No acute intracerebral pathology. Old right MCA infarct. ACT 112: Negative or not required by law. Electronically signed by: Davy Delcid M.D. 04/09/2021 9:51 AM
[2021-04-09 10:16] LABS: Appearance Urine Cloudy (Clear); Bacteria Urine Automated 3+ (Negative); Bilirubin Urine Negative (Negative); Blood Urine 3+ (Negative); Color Urine Yellow; Epithelial Cell Urine Auto 0-5 /lpf (0-5); Glucose Urine UA Negative (Negative); Ketones Urine Negative (Negative); Leukocyte Esterase Urine 3+ (Negative); Nitrite Urine Negative (Negative); Protein Urine 1+ (Negative); RBC Urine Automated >30 /hpf (0-4); Specific Gravity Urine 1.016 (1.000-1.030); Urobilinogen Urine Negative (Negative); WBC Urine Automated >30 /hpf (0-5)
--- NOTE | 2021-04-09 10:34 | History & Physical Report ---
Date of Service April 09, 2021 Assessment & Plan (1) Episode of unresponsiveness: (2) Hypoxia: (3) UTI (urinary tract infection): (4) Lactic acidosis: Plan: This is a 70-year-old male who has a significant past medical history of prior right MCA CVA with left hemiplegia, CAD, PAF with chronic anticoagulation on Eliquis, chronic HFrEF, history of PE, HTN, COPD, CKD stage III, anemia, history of GI bleed, BPH who presents to ED secondary to unresponsive episode while at [facility]. Episode of unresponsiveness Hypoxia Admit to telemetry Recent admission with similar episode; as well as unresponsive episode during hospitalization November underwent echocardiogram which revealed EF 40 to 45% with hypokinesis of anterior, anterior lateral, inferior and inferior lateral tracy Episode at that time felt possibly secondary to hypoxia in setting of aspiration pneumonia treated with IV antibiotic. November hospitalization was secondary to GI bleed, had episode of unresponsiveness during hospitalization and code purple/stroke alert was called. During November hospitalization he underwent neuro consult which felt likely secondary to hypoxia and a hypoactive delirium, CTA of head and neck which showed old right MCA territorial infarct with recannulization, moderate plaque in intracranial arteries, mild stenosis of left cavernous carotid. MRI brain consistent with old infarct. EEG showed slowing in the right parasagittal consistent with prior stroke and general slowing consistent with a nonspecific encephalopathy but no evidence of epileptiform activity Pt with known hx of COPD, episode of unresponsiveness/hypoxia at 0600, will need to obtain nocturnal oximetry study during this admission continue o2 supplementation as needed to keep O2 > 90% Procal 0.38, no resp sx, will repeat CXR in a.m. to r/o aspiration IV zosyn for UTI and possible aspiration ( reported emesis from SNF) blood and urine culture pending Consult neurology to determine if any further testing warranted, given recent episode and full work-up in November and patient back to baseline I am less inclined to put Mr. 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 Lactic Acidosis likely 2/2 to hypoxia no s/sx of sepsis resolved with IVF x 1 L, will give additional 500ml UTI urine culture pending IV zosyn for now to also cover for aspiration can de escalate if aspiration ruled out daily probiotic bond cath in place remove as soon as able hx of R MCA CVA with residual LHP continue plavix, statin, eliquis Chronic HFrEF daily weight, strict intake and output heart healthy, low sodium diet euvolemic, monitor volume status closely with IV fluid Continue metoprolol, lisinopril Atrial fibrillation Rate and rhythm controlled on amiodarone and metoprolol Continue Eliquis for anticoagulation COPD no acute exac prior tobacco user will need oximetry study prior to d/c to determine O2 needs DVT ppx: eliquis Dispo: tele PCP: [facility] FULL CODE Pt was seen and examined in collaboration with Dr. Looney, please see addendum Discussed with Tamara who agrees with above assessment and treatment plan. She states patient has been at [facility] for the past year. She confirms is full CODE STATUS. History of Present Illness Chief Complaint: Unresponsive episode at facility Primary Care Provider: [facility] This is a 70-year-old male who has a significant past medical history of prior right MCA CVA with left hemiplegia, CAD, atrial ablation anticoagulant on Eliquis, chronic HFrEF, history of PE, HTN, COPD, CKD stage III, anemia, history of GI bleed, BPH who presents to ED secondary to unresponsive episode while at [facility]. Of significance patient hospitalized 03/01 to 03/04/2021 secondary to similar unresponsive episode. At that time he was found unresponsive, hypoxic with concern for aspiration. Chest x-ray showed small le ft pleural effusion. Initially treated with IV Lasix and started on IV Unasyn due to concern for aspiration pneumonia. He was seen by speech therapy and placed on nectar thick liquids and easy to chew diet. He had echocardiogram which revealed EF 40 to 45% with mild to moderate hypokinesis of anterior, anterior lateral, inferolateral and inferior wall motion. It was felt brief unresponsive episode may be in setting of hypoxia. Patient was also hospitalized in November 2020 secondary to GI bleed. During hospitalization he again had a similar episode of brief unresponsiveness. At that time marija padron was called and he was made a stroke alert. He underwent a CTA of head and neck which revealed an old left right MCA infarct with recannulization of the right MCA, moderate plaque of the intracranial arteries and mild stenosis of the left cavernous carotid. He was seen and evaluated by neurology. He underwent CT and MRI of head which were unchanged. EEG was also performed which revealed a slowing in the right parasagittal distribution consistent with prior infarct as well as generalized slowing significant for a a nonspecific encephalopathy. There was no epileptiform activity at that time. He presents to ED today due to at approximately 6 AM being found with minimal responsiveness, lethargy and hypoxia. He was last known well at approximately 5:30 AM without symptoms. EMS was summoned. He required 3 L of oxygen and was hypertensive. Patient is awake and alert during my examination. He does not recall being unresponsive and states he was brought to the ER because, "my butt hurts." He denies any fever, chills, sweats, lightheadedness, dizziness, chest pain, shortness of breath, cough, nausea, vomiting, abdominal pain. A Bond catheter was placed in ED. He states his last bowel movement was when he got to ED. History slightly unreliable given underlying cognition but he is alert and oriented to basics. In ED he initially did have a lactic acidosis which re solved with 1 L of IV fluid. His urinalysis concerning for infection. He did not meet SIRS or sepsis criteria. Lab work notable for WBC 11.67, H&H 13.3 and 40.5 and positive urinalysis. Chest x-ray consistent with emphysematous and COPD changes as well as a small left pleural effusion which is unchanged from prior exam. Also noted is left basilar atelectasis. He was initiated on IV cefepime. Allergies Allergy/AdvReac Type Severity Reaction Status Date / Time No Known Allergies Allergy Verified 04/09/21 09:10 Home Medications Medication Instructions Recorded Confirmed Type multivitamin (Daily Multi-Vitamin) 1 tab PO QAM 11/03/18 04/09/21 History acetaminophen 325 mg tablet 650 mg PO Q4H PRN 09/15/20 04/09/21 History (Tylenol) amiodarone 200 mg tablet (Pacerone) 200 mg PO QAM 09/15/20 04/09/21 History apixaban 5 mg tablet (Eliquis) 5 mg PO BID 09/15/20 04/09/21 History atorvastatin 80 mg tablet (Lipitor) 80 mg PO QAM 09/15/20 04/09/21 History chlorhexidine gluconate 0.12 % 1 applic PO TID 09/15/20 04/09/21 History mouthwash (Peridex) cholecalciferol (vitamin D3) 25 25 mcg PO QAM 09/15/20 04/09/21 History mcg (1,000 unit) capsule (Vitamin D3) clopidogrel 75 mg tablet (Plavix) 75 mg PO QAM 09/15/20 04/09/21 History finasteride 5 mg tablet (Proscar) 5 mg PO QAM 09/15/20 04/09/21 History gabapentin 100 mg capsule 100 mg PO TID 09/15/20 04/09/21 History (Neurontin) metoprolol tartrate 25 mg tablet 12.5 mg PO QAM 09/15/20 04/09/21 History ropinirole 0.5 mg tablet 0.5 mg PO QID 09/15/20 04/09/21 History tamsulosin 0.4 mg capsule (Flomax) 0.4 mg PO QDD 09/15/20 04/09/21 History calcium carbonate 200 mg calcium 500 mg PO BID 11/28/20 04/09/21 History (500 mg) chewable tablet (Calcium Antacid) docusate sodium 100 mg capsule 100 mg PO BID #0 cap 12/10/20 04/09/21 Rx (Colace) pantoprazole 40 mg tablet,delayed 40 mg PO BID #60 tab 12/10/20 04/09/21 Rx release polyethylene glycol 3350 17 gram 17 g PO DAILY #30 ea 12/10/20 04/09/21 Rx oral powder packet (Miralax) ferrous sulfate 325 mg (65 mg 325 mg PO BID 03/01/21 04/09/21 History iron) tablet lisinopril 2.5 mg tablet 2.5 mg PO QAM 03/01/21 04/09/21 History sodium di- and 1 tab PO QID 03/01/21 04/09/21 History monophosphate-potassium phos monobasic 250 mg tablet (Phospha 250 Neutral) fluoxetine 10 mg capsule 10 mg PO QAM 04/09/21 04/09/21 History Lactobacillus acidophilus 10 100 mg PO DAILY 8 Days #8 cap 04/12/21 Rx billion cell capsule (Probiotic) ertapenem 1 gram solution for 1 g IV DAILY 8 Days #8 ea 04/12/21 Rx injection levetiracetam 500 mg tablet 500 mg PO BID #60 tab 04/12/21 Rx (Keppra) Past Med/Surg History Medical History Acquired renal cyst of left kidney Acute CHF Aspiration into lower respiratory tract Benign prostatic hyperplasia with urinary obstruction Bladder calculi BPH (benign prostatic hypertrophy) Chronic anticoagulation COPD (chronic obstructive pulmonary disease) 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) Episode of unresponsiveness GIB (gastrointestinal bleeding) Hematuria Hypercholesterolemia Hypoxia Osteoporosis Pulmonary embolism Rectal bleeding Renal calculi ST elevation myocardial infarction (STEMI) Tobacco use UTI (urinary tract infection) Surgical History History of hernia repair Presence of stent in coronary artery S/P drug eluting coronary stent placement S/P PTCA (percutaneous transluminal coronary angioplasty) Family History Denies family history of Ovarian cancer Prostate cancer Myocardial infarction Breast cancer Colorectal cancer Social History Smoking Status: Former smoker Tobacco Type: Cigarettes Second Hand Exposure: No; Do You Dip or Chew Tobacco: No; Tobacco Cessation Education Requested by Patient: No Hx Alcohol Use: Yes Alcohol type: beer, wine and hard liquor Hx Substance Use: No Preferred Language: Frisian Communication Ability: Impaired Nat Instructor Required: No Beliefs That Will Affect Care: None marital status: Current Living Situation: Senior Care Current Living Situation Comment: [facility] (for rehab per patient) current occupational status: employed and retired current occupation: [employer] Other Information That Helps Us Care for You: No Feels Safe at Home: Yes Safety Concerns: Feels Safe At This Time Dental Care, Regularly: No Physical Activity Frequency: Does not Exercise Assistive Devices: Glasses and Wheelchair Review of Systems Review of Systems: All systems reviewed & are unremarkable except as noted in HPI & below Physical Exam Physical Exam: Constitutional: Chronically ill-appearing male, thin,vitals as above, NAD, leaning to the left in bed, answers questions but not always appropriate, alert and oriented x3 to basics, conversing easily Head: Normocephalic, Atraumatic Eyes: PERRL, conjunctivae normal, anicteric sclerae ENMT: external ear and nose normal, oropharynx normal Neck: trachea midline, no thyromegaly normal visual inspection Respiratory: normal respiratory effort, lungs clear to auscultation, no wheeze, rales, rhonchi. Normal insp/exp effort, no accessory muscle use on 2 L of O2 via NC Cardiovascular: RRR, no murmur, no edema, bilateral venous stasis changes chronic vessels: no JVD or carotid bruit Chest: normal inspection of chest Abdomen: normal bowel sounds, soft, nontender, no hepatosplenomegaly Musculoskeletal: no cyanosis or clubbing, left-sided hemiplegia Skin: no rashes, warm and dry normal turgor Neurologic: PERRL, EOMI, accommodation nl, no face palsy, no dysarthria CN's II-XI intact bilaterally and moves all extremities Psychiatric: A+Ox3 to self, month in hospital, basics only euthymic affect Lymphatic: no cervical or axillary lymphadenopathy : Bond catheter in place draining sami cloudy urine Results & Data Results & Data ([facility]) Vital Signs (Past 12 Hours) Vital Signs Temp Pulse Resp Pulse Ox 04/09/21 08:28 92 04/09/21 08:22 37.3 C 80 18 94 Diagnostic Findings Chest X-Ray 04/09/21 07:33 XR chest 1V portable CLINICAL HISTORY: SEPSIS. Evaluate cardiopulmonary status COMPARISON STUDY: 03/02/2021 TECHNIQUE: 1 view of the chest FINDINGS: Single frontal view of the chest demonstrates the heart to be mildly enlarged. There is hyperinflation of the lungs with attenuation of the pulmonary vasculature peripherally characteristic of underlying chronic obstructive pulmonary disease. Compared to previous examination, diffuse prominence interstitial markings is again seen which is greater on the left. Small left pleural effusion and left basilar atelectasis are again seen. No confluent alveolar opacities are identified. There is no evidence for vascular congestion. There is no acute osseous pathology. IMPRESSION: Compared to the previous examination, there is again evidence for COPD with interstitial prominence. Small left pleural effusion and left basilar atelectasis are also present. ACT 112: Negative or not required by law. Electronically signed by: Davy Delcid M.D. 04/09/2021 8:[address] 04/09/21 07:34 CT head/brain wo con CLINICAL HISTORY: seizure COMPARISON STUDY: 03/01/2021 CT DOSE: 614.27 mGy.cm TECHNIQUE: Standard CT of the Brain was performed without IV contrast. A dose lowering technique was utilized adhering to the principles of ALARA. FINDINGS: Extraaxial space: There is no evidence for subdural hematoma. There are no extra-axial fluid collections. Ventricles and cisterns: The ventricles are normal in size and configuration. There is no evidence for midline shift or mass effect. Parenchyma: There is no subarachnoid or intraparenchymal hemorrhage. There is no evidence for an acute infarct or cerebral edema. There is again a large area of encephalomalacia involving the distribution of the right middle cerebral artery representing an old infarct. It is unchanged. There is homogeneous attenuation of the remaining brain parenchyma. There are no gross mass lesions. Osseous structures: There is no evidence for an acute fracture. The visualized paranasal sinuses are clear. The mastoid air cells are clear bilaterally. Soft tissues: There is no evidence for focal soft tissue swelling. IMPRESSION: No acute intracerebral pathology. Old right MCA infarct. ACT 112: Negative or not required by law. Electronically signed by: Davy Delcid M.D. 04/09/2021 9:51 AM Abdomen/Pelvis CT 04/09/21 07:39 CT OF THE ABDOMEN AND PELVIS WITH CONTRAST CLINICAL HISTORY: Abdominal pain. COMPARISON STUDY: CT of the abdomen and pelvis March 01, 2021. TECHNIQUE: Following IV administration of 95 mL of Optiray, axial images of the abdomen and pelvis were obtained from the lung bases to the proximal femurs. Images were reviewed in the axial, sagittal, and coronal planes. IV contrast was administered without complication. Automated exposure control was utilized for the study. A dose lowering technique was utilized adhering to the principles of ALARA. CT DOSE: 628.67 mGy.cm FINDINGS: Emphysema is noted within the lower lungs. Lower lung airspace opacities favor atelectasis. This exam is compromised by difficulty positioning and motion artifact. The liver, spleen, adrenal glands, right kidney and pancreas are unremarkable. There is no biliary or pancreatic ductal dilatation. 2.5 cm left renal cyst is noted. There is a 4 mm calculus within the upper pole the left kidney. There are no ureteral calculi. There is no hydronephrosis. There are layering calculi within the bladder. Bladder is mildly distended. Prostate is enlarged and indents the base of the bladder. There is no evidence for a bowel obstruction. Caliber and wall thickness of small and large bowel are normal. There is a moderate amount of stool within the distal colon and rectum. No ascites is present. There is no lymphadenopathy. No acute fracture or suspicious lesion is identified within the visualized skeletal structures. There may be a right hydrocele. IMPRESSION: 1. No acute process within the abdomen or pelvis although exam compromised given difficulty positioning and motion artifact. 2. 4 mm left renal calculus. Multiple layering bladder calculi. No ureteral calculi or hydronephrosis. Enlarged prostate which indents the base of the bladder. 3. No bowel obstruction. Moderate amount stool within the distal colon and rectum. 4. Emphysema. ACT 112: Negative or not required by law. Electronically signed by: Bigg Rudolph M.D. 04/09/2021 9:45 AM Medications Administered Medication List Discontinued Medications Sodium Chloride (Nss 1000ml) 1,000 mls @ 999 mls/hr IV .Q1H1M EMORY Stop: 04/09/21 08:34 Last Admin: 04/09/21 08:38 Dose: 999 mls/hr Documented by: [id number] Ioversol (Optiray 320 100ml) 95 ml IV ONCE ONE Stop: 04/09/21 09:36 Last Admin: 04/09/21 09:29 Dose: 95 ml Documented by: [id number] ECG Rate (beats per minute): 92 Rhythm: normal sinus COVID-19 Results Results COVID-19 Adm Lab Results: RBC 4.21 M/uL (4.7-6.1) L 04/12/21 WBC 5.68 K/uL (4.8-10.8) 04/12/21 Hgb 12.0 g/dL (14.0-18.0) L 04/12/21 Hct 37.1 % (42-52) L 04/12/21 Plt Count 155 K/uL (130-400) 04/12/21 Neutrophils (%) (Auto) 83.2 % 04/10/21 Lymphocytes (%) (Auto) 7.0 % 04/10/21 Monocytes # (Auto) 0.63 K/uL (0.11-0.59) H 04/10/21 Eosinophils # (Auto) 0.21 K/uL (0-0.5) 04/10/21 Immature Granulocyte % (Auto) 0.2 % 04/10/21 Neutrophils # (Auto) 7.48 K/uL (1.4-6.5) H 04/10/21 Lymphocytes # (Auto) 0.63 K/uL (1.2-3.4) L 04/10/21 Monocytes # (Auto) 0.63 K/uL (0.11-0.59) H 04/10/21 Eosinophils # (Auto) 0.21 K/uL (0-0.5) 04/10/21 Basophils # (Auto) 0.03 K/uL (0-0.2) 04/10/21 Immature Granulocyte # (Auto) 0.02 K/uL (0.00-0.02) 04/10/21 Na 140 mmol/L (136-145) 04/12/21 K 3.8 mmol/L (3.5-5.1) 04/12/21 Cl 107 mmol/L (98-107) 04/12/21 CO2 26 mmol/L (21-32) 04/12/21 Anion Gap 7.0 (3-11) 04/12/21 BUN 17 mg/dl (7-18) 04/12/21 Creatinine 0.85 mg/dl (0.6-1.4) 04/12/21 BUN/Creatinine Ratio 20.5 (10-20) H 04/12/21 Glucose Level 86 mg/dl (70-99) 04/12/21 Ca 8.8 mg/dl (8.5-10.1) 04/12/21 Phosphorus Level 3.6 mg/dl (2.5-4.9) 04/11/21 Total Bilirubin 0.7 mg/dl (0.2-1) 04/10/21 AST/SGOT 33 U/L (15-37) 04/10/21 ALT/SGPT 30 U/L (12-78) 04/10/21 Alkaline Phosphatase 77 U/L (45-117) 04/10/21 Total Protein 5.6 gm/dl (6.4-8.2) L 04/10/21 Albumin 2.6 gm/dl (3.4-5.0) L 04/10/21 Globulin 3.0 gm/dl (2.5-4.0) 04/10/21 Albumin/Globulin Ratio 0.9 (0.9-2) 04/10/21 Troponin I < 0.015 ng/ml (0-0.045) 04/09/21 Procalcitonin 6.17 ng/ml (0-0.5) H 04/10/21 PTT 23.4 Seconds (21.0-31.0) 04/09/21 INR 1.1 (0.9-1.1) 04/09/21 COVID-19 PCR NEGATIVE (Negative) 04/09/21 SARS-CoV-2, RNA, NAAT NEGATIVE (NEGATIVE) 04/12/21 Chest X-Ray 04/10/21 Code Status & VTE Plan Code Status Full code VTE Prophylaxis Plan VTE Prophylaxis will be ordered: No Supervising Physician Co-Signing Physician Notes Pt seen and examined by me, care coordinated with Meghann Freeman PA-C, pls refer to her note above for further detail. Pt is a 70 yo M w/ hx of prior right MCA CVA with left hemiplegia, CAD, atrial ablation anticoagulated on Eliquis, chronic HFrEF, history of PE, HTN, COPD, CKD stage III, anemia, history of GI bleed, BPH who presents due to unresponsive episode while at [facility]. Pt hospitalized 03/01 to 03/04/2021 secondary to similar unresponsive episode. At that time he was found unresponsive, hypoxic with concern for aspiration. Patient was also hospitalized in November 2020 secondary to GI bleed. During hospitalization he again had a similar episode of brief unresponsiveness. At that time code vito was called and he was made a stroke alert. He was last known well today at approximately 5:30 AM without symptoms. He required 3 L of oxygen and was hypertensive. Currently pt is awake and alert. He does not recall being unresponsive. He denies any fever, chills, sweats, lightheadedness, dizziness, chest pain, shortness of breath, cough, nausea, vomiting, abdominal pain. A Bond catheter was placed in ED. History slightly unreliable given underlying cognition but he is alert and oriented to basics. In ED he initially did have a lactic acidosis which resolved with 1 L of IV fluid. His UA concerning for infection. He did not meet SIRS or sepsis criteria. Lab work notable for WBC 11.67, H&H 13.3 and 40.5 and positive urinalysis. Chest x-ray consistent with emphysematous and COPD changes as well as a small left pleural effusion which is unchanged from prior exam. Also noted is left basilar atelectasis. On exam pt is laying on his right side, awake, able to answer simple questions appropriately. He appears comfortable. + mild dysarthria. Lungs are clear to auscultation b/l. Heart sounds regular. Abdomen soft, nontender nondistended. Left hemiparesis with left upper extremity contractures and limited range of mo tion (chronic). Skin is warm, dry. Discussed with neurology, given recurrent event and bruise on pt's tongue, concern for seizure - start Keppra 500 mg bid. Simon Looney MD
[2021-04-09] MEDS ORDERED: CLOPIDOGREL BISULFATE 75 MG TAB PO ONE (10:57)
[2021-04-09] MEDS ORDERED: METOPROLOL TARTRATE 25 MG TAB PO STA (10:57)
[2021-04-09] MEDS ORDERED: lisinopril 2.5 MG TAB PO ONE (10:57)
[2021-04-09] MEDS ORDERED: APIXABAN 5 MG TABLET PO STA (10:57)
[2021-04-09] MEDS ORDERED: AMIODARONE 200 MG TAB PO ONE (11:01)
--- NOTE | 2021-04-09 14:28 | Electrocardiogram Report ---
Test Reason : Blood Pressure : / mmHG Vent. Rate : 092 BPM Atrial Rate : 092 BPM P-R Int : 206 ms QRS Dur : 106 ms QT Int : 370 ms P-R-T Axes : 087 025 207 degrees QTc Int : 457 ms Poor data quality, interpretation may be adversely affected Normal sinus rhythm Nonspecific ST and T wave abnormality Abnormal ECG When compared with ECG of 01-MAR-2021 12:09, Premature ventricular complexes are no longer Present Nonspecific T wave abnormality, worse in Inferior leads T wave inversion now evident in Lateral leads QT has shortened Confirmed by Jeremy Bazan ([id number]) on 04/09/2021 2:27:49 PM Referred By: Yanni Hood Confirmed By:Miquel Bazan
[2021-04-09] MEDS ORDERED: ONDANSETRON INJ 2 MG/ML 2 ML VIAL IV PRN (15:50)
[2021-04-09] MEDS ORDERED: ALUMINUM/MAGNESIUM SUSP 30 ML UDC PO PRN (15:50)
[2021-04-09] MEDS ORDERED: POLYETHYLENE (MIRALAX) 17 GM PACK PO PRN (15:50)
[2021-04-09] MEDS ORDERED: SODIUM CHLORIDE 0.9% 500 ML IV SCH (15:50)
[2021-04-09] MEDS ORDERED: PIPERACILL/TAZOBAC CONSULT ACTIVE PRN (15:50)
[2021-04-09] MEDS ORDERED: MAGNESIUM HYDROXIDE SUSP 30 ML UDC PO PRN (15:50)
[2021-04-09] MEDS ORDERED: PIPERACILLIN/TAZOBACTAM 3.375 GM in DEXTROSE 5% 100 ML IV ONE (16:45)
[2021-04-09] MEDS: rOPINIRole HCL 0.25 MG TABLET PO SCH ×3 (16:46→21:38)
[2021-04-09] MEDS: ACETAMINOPHEN 325 MG TAB PO PRN ×2 (17:02→22:23)
[2021-04-09] MEDS: GABAPENTIN 100 MG CAP PO SCH ×2 (17:45→21:50)
[2021-04-09] MEDS: POT PHOSPHATE MONOBASIC W/ SOD TAB PO SCH ×2 (17:46→21:49)
[2021-04-09] MEDS: TAMSULOSIN HCL 0.4 MG CAP PO SCH (17:47)
[2021-04-09] MEDS: SACCHAROMYCES BOULARDII 250 MG CAP PO SCH (17:47)
[2021-04-09] MEDS: CHLORHEXIDINE GLUCONATE 0.12% 480 ML MT SCH ×2 (17:56→21:40)
[2021-04-09] MEDS: PANTOprazole 40 MG TAB PO SCH (21:37)
[2021-04-09] MEDS: DOCUSATE SODIUM 100 MG CAP PO SCH (21:38)
[2021-04-09] MEDS: APIXABAN 5 MG TABLET PO SCH (21:39)
[2021-04-09] MEDS: CALCIUM CARBONATE 500 MG CHEWABLE TAB PO SCH (21:50)
[2021-04-09] MEDS: FERROUS SULFATE 325 MG TAB PO SCH (22:02)
[2021-04-09] MEDS: levETIRAcetam 500 MG TAB PO SCH (22:07)
[2021-04-09] MEDS: PIPERACILLIN/TAZOBACTAM 3.375 GM in DEXTROSE 5% 100 ML IV SCH (22:08)
--- NOTE | 2021-04-09 23:34 | Consultation Report ---
NEUROLOGY CONSULTATION NOTE DATE OF CONSULTATION: 04/09/2021. CHIEF COMPLAINT: Unresponsive episode. 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 Previously admitted in November with a GI bleed and unresponsive episode, admitted this morning for an unresponsive episode. The patient is currently awake and back to baseline. He does have mult iple medical comorbidities including a prior GI bleed. He was recently admitted in February with a si milar episode as well. Prior to that, he had a similar episode in November of 2020. In February, he unde rwent transthoracic echocardiogram, which showed an EF of 40% to 45% with hypokinesis of the lateral wall, anterior lateral and inferior lateral tracy. Consideration of a hypoxic episode was considered in the setting of aspiration pneumonia. In November, it was thought due to a GI bleed. The patient annie es at [facility] and was brought in due to an unresponsive episode this morning. He was foun d unresponsive, hypoxic with concern for aspiration. Chest x-ray showed small left pleural effusion. He was initially treated with IV Lasix and started on Unasyn due to aspiration pneumonia of concern . The patient was found this morning at 6:00 a.m. with minimal responsiveness and hypoxia. He was l ast known well at 5:30 a.m. without symptoms. EMS was summoned. He required 3 liters of oxygen and was hypertensive. The patient does not recall being unresponsive other than stating that his left bu ttock hurts. A Campos catheter was placed in the ER. Otherwise, the patient denies any other symptom s at this time. He was initiated on IV cefepime. Chest x-ray showed emphysematous and COPD changes and small left pleural effusion. Neurology was consulted for further assessment. ALLERGIES: No known drug allergies. HOME MEDICATIONS: Tylenol as needed, amiodarone, Lipitor 80 mg, calcium, vitamin D, Plavix, Colace, Eliquis 5 mg twice daily, iron, Proscar, fluoxetine, gabapentin 100 mg 3 times daily, lisinopril, Lop ressor, multivitamin, MiraLax, ropinirole 0.5 mg q.i.d., Flomax. PAST MEDICAL HISTORY: Chronic right MCA ischemic stroke with left-sided hemiplegia, coronary artery disease, paroxysmal atrial fibrillation, coagulopathy, history of PE, hypertension, COPD, chronic kid kg disease, anemia, history of GI bleed, BPH. PAST SURGICAL HISTORY: Hernia repair, drug-eluting coronary artery stent, percutaneous transluminal coronary angioplasty, EGD, colonoscopy. FAMILY HISTORY: No pertinent family history. SOCIAL HISTORY: He is a former smoker. No illicit drug use. He lives at [facility]. REVIEW OF SYSTEMS: Positive for unresponsive episode, hypoxia. All other review of systems was nega tive. PHYSICAL EXAMINATION: VITAL SIGNS: Blood pressure 132/76, pulse is 69, respiratory rate 17, temperature is 37.2 degrees Ce lsius. GENERAL: The patient appears chronically ill. He is in no distress. He is lying on his right side. HEENT: His head is atraumatic and normocephalic. His eyes are normal. Normal conjunctivae. Eyes a re midline. NECK: Supple. LUNGS: Normal respiratory effort. CARDIAC: Pulses are intact. ABDOMEN: Nondistended. SKIN: Mild erythema over the left hip/buttocks. PSYCHIATRIC: He has a normal mood, normal affect. He appears in no distress. NEUROLOGIC: He is awake, alert, disoriented to place and time. He is following simple commands, mil d dysarthria. No visual defect on confrontation. Pupils are equal. Extraocular muscles intact. Fa cial sensation is intact. Chronic left facial droop. Intact hearing. Palate is symmetric. Good sh oulder shrug. Tongue is midline with a bruise on the left side of his tongue. He is unable to ambul ate. He has no tremor. He has a left hemiparesis with left upper extremity contractures and limited range of motion. DIAGNOSTIC TESTING AND LABORATORY VALUES: WBC 11.67, hemoglobin 13.3, platelet count 137. Sodium is 142, potassium 3.8, chloride is 111, carbon dioxide 22, BUN is 15, creatinine 1.12. Lactate is 3.4. Procalcitonin 0.38. CT chest, abdomen, and pelvis showed no acute process within the abdomen or pe lvis. A 4 mm left renal calculus. No bowel obstruction, emphysema. Head CT noncontrast showed no a cute intracranial pathology. Old right MCA infarct. ASSESSMENT AND PLAN: A 70-year-old male with a history of chronic right MCA ischemic stroke with lef t-sided hemiparesis, and paroxysmal atrial fibrillation, on Eliquis, admitted with an unresponsive ep isode associated with hypoxia. This is the third event. On examination today, he is amnestic to the event with a bruise on the left side of his tongue. Given the third event as well as the bruise on the left side of the tongue and amnesia, this may be suggestive of a complex partial seizure emanatin g from the right MCA territory where he had his previous stroke. Previous EEG showed focal slowing o n the right hemisphere. I would recommend starting Keppra 500 mg twice daily for seizure prophylaxis . I did discuss this with the patient. Otherwise, I will defer on any additional neurological testi ng at this time. The patient is currently back to his baseline. Otherwise, recommend neurology foll owup in 2-3 months. Please contact me with any additional questions or concerns. Job ID: [id number]
[2021-04-10] MEDS: PIPERACILLIN/TAZOBACTAM 3.375 GM in DEXTROSE 5% 100 ML IV SCH ×3 (06:37→21:58)
[2021-04-10 07:12] LABS: Basophils # (auto) 0.03 K/uL (0-0.2); Basophils % (auto) 0.3 %; Eosinophils # (auto) 0.21 K/uL (0-0.5); Eosinophils % (auto) 2.3 %; Hematocrit (blood only) 35.2 % (42-52); Hemoglobin 11.3 g/dL (14.0-18.0); Immature Granulocytes # (auto) 0.02 K/uL (0.00-0.02); Immature Granulocytes % (auto) 0.2 %; Lymphocytes # (auto) 0.63 K/uL (1.2-3.4); Mean Corpuscular Hemoglobin 28.3 pg (25-34); Mean Corpuscular Hgb Conc 32.1 g/dL (32-36); Mean Corpuscular Volume 88.2 fL (80-100); Mean Platelet Volume 10.4 fL (7.4-10.4); Monocytes # (auto) 0.63 K/uL (0.11-0.59); Neutrophils # (auto) 7.48 K/uL (1.4-6.5); Neutrophils % (auto) 83.2 %; Platelet Count 133 K/uL (130-400); RDW Coefficient of Variation 17.7 % (11.5-14.5); RDW Standard Deviation 57.4 fL (36.4-46.3); Red Blood Count 3.99 M/uL (4.7-6.1)
[2021-04-10 07:36] LABS: Alanine Aminotransferase 30 U/L (12-78); Albumin Level 2.6 gm/dl (3.4-5.0); Aspartate Aminotransferase 33 U/L (15-37); BUN Creatinine Ratio 16.1 (10-20); Blood Urea Nitrogen 18 mg/dl (7-18); Calcium 9.2 mg/dl (8.5-10.1); Carbon Dioxide 27 mmol/L (21-32); Chloride 108 mmol/L (98-107); Est GFR (African American) 74.1 ml/min; Est GFR (Non-African American) 63.9 ml/min; Glucose 90 mg/dl (70-99); Potassium 3.9 mmol/L (3.5-5.1); Sodium 139 mmol/L (136-145)
[2021-04-10 07:39] LABS: Albumin Globulin Ratio 0.9 (0.9-2); Alkaline Phosphatase 77 U/L (45-117); Bilirubin,Total 0.7 mg/dl (0.2-1); Phosphorus 3.7 mg/dl (2.5-4.9); Total Protein 5.6 gm/dl (6.4-8.2)
--- NOTE | 2021-04-10 08:23 | Hospitalist Progress Note ---
Date of Service April 10, 2021 Assessment & Plan (1) Episode of unresponsiveness: (2) Hypoxia: (3) UTI (urinary tract infection): (4) Lactic acidosis: Plan: This is a 70-year-old male who has a significant past medical history of prior right MCA CVA with left hemiplegia, CAD, PAF with chronic anticoagulation on Eliquis, chronic HFrEF, history of PE, HTN, COPD, CKD stage III, anemia, history of GI bleed, BPH who presents to ED secondary to unresponsive episode while at [facility]. Episode of unresponsiveness Hypoxia Admit to telemetry Recent admission with similar episode; as well as unresponsive episode during hospitalization November underwent echocardiogram which revealed EF 40 to 45% with hypokinesis of anterior, anterior lateral, inferior and inferior lateral tracy Episode at that time felt possibly secondary to hypoxia in setting of aspiration pneumonia treated with IV antibiotic. November hospitalization was secondary to GI bleed, had episode of unresponsiveness during hospitalization and code purple/stroke alert was called. During November hospitalization he underwent neuro consult which felt likely secondary to hypoxia and a hypoactive delirium, CTA of head and neck which showed old right MCA territorial infarct with recannulization, moderate plaque in intracranial arteries, mild stenosis of left cavernous carotid. MRI brain consistent with old infarct. EEG showed slowing in the right parasagittal consistent with prior stroke and general slowing consistent with a nonspecific encephalopathy but no evidence of epileptiform activity Pt with known hx of COPD, episode of unresponsiveness/hypoxia at 0600, will need to obtain nocturnal oximetry study during this admission continue o2 supplementation as needed to keep O2 > 90% Procal 0.38, no resp sx, will repeat CXR in a.m. to r/o aspiration IV zosyn for UTI and possible aspiration ( reported emesis from SNF) blood and urine culture pending Consult neurology to determine if any further testing warranted Per neurology, concern for complex partial seizure (given recurrent episode, bruise on the side of the tongue, previous EEG results), recommend starting Keppra 500 mg bid. Lactic Acidosis likely 2/2 to hypoxia no s/sx of sepsis resolved UTI urine culture pending IV zosyn for now to also cover for aspiration can de escalate if aspiration ruled out daily probiotic bond cath in place remove as soon as able hx of R MCA CVA with residual LHP continue plavix, statin, eliquis Chronic HFrEF daily weight, strict intake and output heart healthy, low sodium diet euvolemic, monitor volume status closely with IV fluid Continue metoprolol, lisinopril Atrial fibrillation Rate and rhythm controlled on amiodarone and metoprolol Continue Eliquis for anticoagulation COPD no acute exac prior tobacco user will need oximetry study prior to d/c to determine O2 needs DVT ppx: Eliquis Dispo: tele PCP: [facility] FULL CODE Discussed with Tamara who agrees with above assessment and treatment plan. She states patient has been at [facility] for the past year. She confirms is full CODE STATUS. Admission and Anticipated Discharge Date Admission Date: April 09, 2021 Subjective Pt seen in follow up of unresponsiveness, likely seizure episode Currently laying in bed in [facility], has no complaints No fever, chills, chest pain, shortness of breath or abd. pain., n/v Review of Systems Review of Systems: All systems reviewed & are unremarkable except as noted in Subjective Physical Exam Physical Exam: Constitutional: Chronically ill-appearing male, thin,in NAD Head: Normocephalic, Atraumatic Eyes: PERRL, EOMI, conjunctivae normal, anicteric sclerae ENMT: external ear and nose normal, oropharynx normal Neck: normal visual inspection Respiratory: normal respiratory effort, lungs clear to auscultation, no wheeze, rales, rhonchi.no accessory muscle use on 2 L of O2 via NC Cardiovascular: RRR, no murmur, no edema, bilateral venous stasis changes chronic Chest: normal inspection of chest Abdomen: normal bowel sounds, soft, nontender Musculoskeletal:left-sided hemiplegia Skin: no rashes, warm and dry normal turgor Neurologic: PERRL, EOMI, + mild dysarthria, Psychiatric: A+Ox3 to self, month in hospital, basics only euthymic affect, left hemiparesis with left upper extremity contractures and limited range of motion : Bond catheter in place draining dark yellow urine Results & Data Results & Data ([facility]) Vital Signs (Past 12 Hours) Vital Signs Temp Pulse Pulse Resp BP Pulse Ox 04/10/21 07:32 95 04/10/21 07:20 36.7 C 55 L 17 125/57 L 85 L 11/30/21 07:11 53 L 04/10/21 04:00 36.8 C 63 18 110/61 92 04/09/21 23:28 36.6 C 63 18 114/65 92 04/09/21 22:05 70 Laboratory Results 04/10/21 04/10/21 04/10/21 Range/Units 06:49 06:49 06:49 WBC 9.00 (4.8-10.8) K/uL RBC 3.99 L (4.7-6.1) M/uL Hgb 11.3 L (14.0-18.0) g/dL Hct 35.2 L (42-52) % MCV 88.2 (80-100) fL MCH 28.3 (25-34) pg MCHC 32.1 (32-36) g/dL RDW Std Deviation 57.4 H (36.4-46.3) fL RDW Coeff of Markell 17.7 H (11.5-14.5) % Plt Count 133 (130-400) K/uL MPV 10.4 (7.4-10.4) fL Immature Gran % (Auto) 0.2 % Neut % (Auto) 83.2 % Lymph % (Auto) 7.0 % [place] % (Auto) 7.0 % Eos % (Auto) 2.3 % Baso % (Auto) 0.3 % Neut # (Auto) 7.48 H (1.4-6.5) K/uL Lymph # (Auto) 0.63 L (1.2-3.4) K/uL [place] # (Auto) 0.63 H (0.11-0.59) K/uL Eos # (Auto) 0.21 (0-0.5) K/uL Baso # (Auto) 0.03 (0-0.2) K/uL Immature Gran # (Auto) 0.02 (0.00-0.02) K/uL Sodium 139 (136-145) mmol/L Potassium 3.9 (3.5-5.1) mmol/L Chloride 108 H (98-107) mmol/L Carbon Dioxide 27 (21-32) mmol/L Anion Gap 4.0 (3-11) BUN 18 (7-18) mg/dl Creatinine 1.14 (0.6-1.4) mg/dl Est Cr Clr Drug Dosing Not Reportable Est GFR ( Amer) 74.1 ml/min Est GFR (Non-Af Amer) 63.9 ml/min BUN/Creatinine Ratio 16.1 (10-20) Glucose 90 (70-99) mg/dl Lactate (0.4-2.0) mmol/L Calcium 9.2 (8.5-10.1) mg/dl Phosphorus 3.7 D (2.5-4.9) mg/dl Magnesium 2.0 (1.8-2.4) mg/dl Total Bilirubin 0.7 (0.2-1) mg/dl AST 33 (15-37) U/L ALT 30 (12-78) U/L Alkaline Phosphatase 77 (45-117) U/L Troponin I (0-0.045) ng/ml Total Protein 5.6 L (6.4-8.2) gm/dl Albumin 2.6 L (3.4-5.0) gm/dl Globulin 3.0 (2.5-4.0) gm/dl Albumin/Globulin Ratio 0.9 (0.9-2) Procalcitonin 6.17 H (0-0.5) ng/ml Urine Color Urine Appearance (Clear) Urine pH (4.5-7.5) Ur Specific [place] (1.000-1.030) Urine Protein (Negative) Urine Glucose (UA) (Negative) Urine Ketones (Negative) Urine Blood (Negative) Urine Nitrite (Negative) Urine Bilirubin (Negative) Urine Urobilinogen (Negative) Ur Leukocyte Esterase (Negative) Urine WBC (Auto) (0-5) /hpf Urine RBC (Auto) (0-4) /hpf U Hyaline Cast (Auto) (0-5) /lpf U Epithel Cells (Auto) (0-5) /lpf Urine Bacteria (Auto) (Negative) Nasal Screen MRSA (PCR) SARS-CoV-2 (PCR) (Negative) 04/10/21 04/09/21 04/09/21 Range/Units 06:00 10:02 10:00 WBC (4.8-10.8) K/uL RBC (4.7-6.1) M/uL Hgb (14.0-18.0) g/dL Hct (42-52) % MCV (80-100) fL MCH (25-34) pg MCHC (32-36) g/dL RDW Std Deviation (36.4-46.3) fL RDW Coeff of Markell (11.5-14.5) % Plt Count (130-400) K/uL MPV (7.4-10.4) fL Immature Gran % (Auto) % Neut % (Auto) % Lymph % (Auto) % [place] % (Auto) % Eos % (Auto) % Baso % (Auto) % Neut # (Auto) (1.4-6.5) K/uL Lymph # (Auto) (1.2-3.4) K/uL [place] # (Auto) (0.11-0.59) K/uL Eos # (Auto) (0-0.5) K/uL Baso # (Auto) (0-0.2) K/uL Immature Gran # (Auto) (0.00-0.02) K/uL Sodium (136-145) mmol/L Potassium (3.5-5.1) mmol/L Chloride (98-107) mmol/L Carbon Dioxide (21-32) mmol/L Anion Gap (3-11) BUN (7-18) mg/dl Creatinine (0.6-1.4) mg/dl Est Cr Clr Drug Dosing Est GFR ( Amer) ml/min Est GFR (Non-Af Amer) ml/min BUN/Creatinine Ratio (10-20) Glucose (70-99) mg/dl Lactate 1.7 (0.4-2.0) mmol/L Calcium (8.5-10.1) mg/dl Phosphorus (2.5-4.9) mg/dl Magnesium (1.8-2.4) mg/dl Total Bilirubin (0.2-1) mg/dl AST (15-37) U/L ALT (12-78) U/L Alkaline Phosphatase (45-117) U/L Troponin I (0-0.045) ng/ml Total Protein (6.4-8.2) gm/dl Albumin (3.4-5.0) gm/dl Globulin (2.5-4.0) gm/dl Albumin/Globulin Ratio (0.9-2) Procalcitonin (0-0.5) ng/ml Urine Color Yellow Urine Appearance Cloudy A (Clear) Urine pH 6.0 (4.5-7.5) Ur Specific [place] 1.016 (1.000-1.030) Urine Protein 1+ H (Negative) Urine Glucose (UA) Negative (Negative) Urine Ketones Negative (Negative) Urine Blood 3+ H (Negative) Urine Nitrite Negative (Negative) Urine Bilirubin Negative (Negative) Urine Urobilinogen Negative (Negative) Ur Leukocyte Esterase 3+ H (Negative) Urine WBC (Auto) >30 H (0-5) /hpf Urine RBC (Auto) >30 H (0-4) /hpf U Hyaline Cast (Auto) 1-5 (0-5) /lpf U Epithel Cells (Auto) 0-5 (0-5) /lpf Urine Bacteria (Auto) 3+ H (Negative) Nasal Screen MRSA (PCR) Pending SARS-CoV-2 (PCR) (Negative) 04/09/21 04/09/21 04/09/21 Range/Units 09:40 07:50 07:44 WBC (4.8-10.8) K/uL RBC (4.7-6.1) M/uL Hgb (14.0-18.0) g/dL Hct (42-52) % MCV (80-100) fL MCH (25-34) pg MCHC (32-36) g/dL RDW Std Deviation (36.4-46.3) fL RDW Coeff of Markell (11.5-14.5) % Plt Count (130-400) K/uL MPV (7.4-10.4) fL Immature Gran % (Auto) % Neut % (Auto) % Lymph % (Auto) % [place] % (Auto) % Eos % (Auto) % Baso % (Auto) % Neut # (Auto) (1.4-6.5) K/uL Lymph # (Auto) (1.2-3.4) K/uL [place] # (Auto) (0.11-0.59) K/uL Eos # (Auto) (0-0.5) K/uL Baso # (Auto) (0-0.2) K/uL Immature Gran # (Auto) (0.00-0.02) K/uL Sodium (136-145) mmol/L Potassium (3.5-5.1) mmol/L Chloride (98-107) mmol/L Carbon Dioxide (21-32) mmol/L Anion Gap (3-11) BUN (7-18) mg/dl Creatinine (0.6-1.4) mg/dl Est Cr Clr Drug Dosing Est GFR ( Amer) ml/min Est GFR (Non-Af Amer) ml/min BUN/Creatinine Ratio (10-20) Glucose (70-99) mg/dl Lactate 3.4 H* (0.4-2.0) mmol/L Calcium (8.5-10.1) mg/dl Phosphorus (2.5-4.9) mg/dl Magnesium (1.8-2.4) mg/dl Total Bilirubin (0.2-1) mg/dl AST (15-37) U/L ALT (12-78) U/L Alkaline Phosphatase (45-117) U/L Troponin I (0-0.045) ng/ml Total Protein (6.4-8.2) gm/dl Albumin (3.4-5.0) gm/dl Globulin (2.5-4.0) gm/dl Albumin/Globulin Ratio (0.9-2) Procalcitonin 0.38 (0-0.5) ng/ml Urine Color Urine Appearance (Clear) Urine pH (4.5-7.5) Ur Specific [place] (1.000-1.030) Urine Protein (Negative) Urine Glucose (UA) (Negative) Urine Ketones (Negative) Urine Blood (Negative) Urine Nitrite (Negative) Urine Bilirubin (Negative) Urine Urobilinogen (Negative) Ur Leukocyte Esterase (Negative) Urine WBC (Auto) (0-5) /hpf Urine RBC (Auto) (0-4) /hpf U Hyaline Cast (Auto) (0-5) /lpf U Epithel Cells (Auto) (0-5) /lpf Urine Bacteria (Auto) (Negative) Nasal Screen MRSA (PCR) SARS-CoV-2 (PCR) NEGATIVE (Negative) 04/09/21 04/09/21 Range/Units 07:38 07:38 WBC (4.8-10.8) K/uL RBC (4.7-6.1) M/uL Hgb (14.0-18.0) g/dL Hct (42-52) % MCV (80-100) fL MCH (25-34) pg MCHC (32-36) g/dL RDW Std Deviation (36.4-46.3) fL RDW Coeff of Mark[place] (11.5-14.5) % Plt Count (130-400) K/uL MPV (7.4-10.4) fL Immature Gran % (Auto) % Neut % (Auto) % Lymph % (Auto) % [place] % (Auto) % Eos % (Auto) % Baso % (Auto) % Neut # (Auto) (1.4-6.5) K/uL Lymph # (Auto) (1.2-3.4) K/uL [place] # (Auto) (0.11-0.59) K/uL Eos # (Auto) (0-0.5) K/uL Baso # (Auto) (0-0.2) K/uL Immature Gran # (Auto) (0.00-0.02) K/uL Sodium 143 (136-145) mmol/L Potassium 3.8 (3.5-5.1) mmol/L Chloride 111 H (98-107) mmol/L Carbon Dioxide 22 (21-32) mmol/L Anion Gap 10.0 (3-11) BUN 15 (7-18) mg/dl Creatinine 1.12 (0.6-1.4) mg/dl Est Cr Clr Drug Dosing Not Reportable Est GFR ( Amer) 75.7 ml/min Est GFR (Non-Af Amer) 65.3 ml/min BUN/Creatinine Ratio 13.5 (10-20) Glucose 95 (70-99) mg/dl Lactate (0.4-2.0) mmol/L Calcium 9.0 (8.5-10.1) mg/dl Phosphorus 2.6 (2.5-4.9) mg/dl Magnesium 1.9 (1.8-2.4) mg/dl Total Bilirubin 0.8 (0.2-1) mg/dl AST 17 (15-37) U/L ALT 30 (12-78) U/L Alkaline Phosphatase 98 (45-117) U/L Troponin I < 0.015 (0-0.045) ng/ml Total Protein 6.3 L (6.4-8.2) gm/dl Albumin 3.1 L (3.4-5.0) gm/dl Globulin 3.2 (2.5-4.0) gm/dl Albumin/Globulin Ratio 1.0 (0.9-2) Procalcitonin (0-0.5) ng/ml Urine Color Urine Appearance (Clear) Urine pH (4.5-7.5) Ur Specific [place] (1.000-1.030) Urine Protein (Negative) Urine Glucose (UA) (Negative) Urine Ketones (Negative) Urine Blood (Negative) Urine Nitrite (Negative) Urine Bilirubin (Negative) Urine Urobilinogen (Negative) Ur Leukocyte Esterase (Negative) Urine WBC (Auto) (0-5) /hpf Urine RBC (Auto) (0-4) /hpf U Hyaline Cast (Auto) (0-5) /lpf U Epithel Cells (Auto) (0-5) /lpf Urine Bacteria (Auto) (Negative) Nasal Screen MRSA (PCR) SARS-CoV-2 (PCR) (Negative) Medications Administered Current Inpatient Medications Acetaminophen (Acetaminophen 325 Mg Tab) 650 mg PO Q4H PRN PRN Reason: Pain or Fever Stop: 05/09/21 15:49 Last Admin: 04/09/21 22:23 Dose: 650 mg Documented by: Al Hydrox/Mg Hydrox/Simethicone (Aluminum/Magnesium Susp 30 Ml Udc) 15 ml PO Q4H PRN PRN Reason: Dyspepsia Stop: 05/09/21 15:49 Amiodarone HCl (Amiodarone 200 Mg Tab) 200 mg PO QAM [facility] Stop: 05/10/21 08:59 Apixaban (Apixaban 5 Mg Tablet) 5 mg PO BID [facility] Stop: 05/09/21 20:59 Last Admin: 04/09/21 21:39 Dose: 5 mg Documented by: Atorvastatin Calcium (Atorvastatin 40 Mg Tab) 80 mg PO QAM [facility] Stop: 05/10/21 08:59 Calcium Carbonate (Calcium Carbonate 500 Mg Chewable Tab) 500 mg PO BID [facility] Stop: 05/09/21 20:59 Last Admin: 04/09/21 21:50 Dose: 500 mg Documented by: Chlorhexidine Gluconate (Chlorhexidine Gluconate 0.12% 480 Ml) 2 ml MT TID [facility] Stop: 05/09/21 15:49 Last Admin: 04/09/21 21:40 Dose: 2 ml Documented by: Clopidogrel Bisulfate (Clopidogrel Bisulfate 75 Mg Tab) 75 mg PO QAM [facility] Stop: 05/10/21 08:59 Docusate Sodium (Docusate Sodium 100 Mg Cap) 100 mg PO BID [facility] Stop: 05/09/21 20:59 Last Admin: 04/09/21 21:38 Dose: 100 mg Documented by: Ferrous Sulfate (Ferrous Sulfate 325 Mg Tab) 325 mg PO BID [facility] Stop: 05/09/21 20:59 Last Admin: 04/09/21 22:02 Dose: 325 mg Documented by: Finasteride (Finasteride 5 Mg Tab) 5 mg PO QAM [facility] Stop: 05/10/21 08:59 Fluoxetine HCl (Fluoxetine Hcl 10 Mg Cap) 10 mg PO QAM [facility] Stop: 05/10/21 08:59 Gabapentin (Gabapentin 100 Mg Cap) 100 mg PO TID [facility] Stop: 05/09/21 15:49 Last Admin: 04/09/21 21:50 Dose: 100 mg Documented by: Piperacillin Sod/Tazobactam (Sod 3.375 gm/ Dextrose) 115 mls @ 28.75 mls/hr IV Q8H [facility]; Protocol Stop: 04/16/21 21:59 Last Admin: 04/10/21 06:37 Dose: 28.8 mls/hr Documented by: Levetiracetam (Levetiracetam 500 Mg Tab) 500 mg PO BID [facility] Stop: 05/09/21 20:59 Last Admin: 04/09/21 22:07 Dose: 500 mg Documented by: Lisinopril (Lisinopril 2.5 Mg Tab) 2.5 mg PO [facility] Stop: 05/10/21 08:59 Magnesium Hydroxide (Magnesium Hydroxide Susp 30 Ml Udc) 30 ml PO Q12H PRN PRN Reason: Constipation Stop: 05/09/21 15:49 Metoprolol Tartrate (Metoprolol Tartrate 25 Mg Tab) 12.5 mg PO [facility] Stop: 05/10/21 08:59 Miscellaneous Information (Piperacill/Tazobac Consult Active) 1 ea N/A UD PRN PRN Reason: Consult Stop: 05/09/21 15:49 Multivitamins ([facility]itamin Tab) [facility] Stop: 05/10/21 08:59 Ondansetron HCl (Ondansetron Inj 2 Mg/Ml 2 Ml Vial) 4 mg IV Q6H PRN PRN Reason: Nausea Stop: 05/09/21 15:49 Pantoprazole Sodium (Pantoprazole 40 Mg Tab) 40 mg PO BID [facility] Stop: 05/09/21 20:59 Last Admin: 04/09/21 21:37 Dose: 40 mg Documented by: Polyethylene Glycol (Polyethylene (Miralax) 17 Gm Pack) 17 gm PO DAILY PRN PRN Reason: Constipation Stop: 05/09/21 15:49 Polyethylene Glycol (Polyethylene (Miralax) 17 Gm Pack) 17 gm PO DAILY [facility] Stop: 05/10/21 08:59 Potassium Phosphate (Pot Phosphate Monobasic W/ Sod Tab) 1 tab PO QID [facility] Stop: 05/09/21 15:49 Last Admin: 04/09/21 21:49 Dose: 1 tab Documented by: Ropinirole HCl (Ropinirole Hcl 0.25 Mg Tablet) 0.5 mg PO QID [facility] Stop: 05/09/21 15:49 Last Admin: 04/09/21 21:38 Dose: 0.5 mg Documented by: Saccharomyces Boulardii (Saccharomyces Boulardii 250 Mg Cap) 250 mg PO DAILY [facility] Stop: 05/09/21 15:49 Last Admin: 04/09/21 17:47 Dose: 250 mg Documented by: Tamsulosin HCl (Tamsulosin Hcl 0.4 Mg Cap) 0.4 mg PO QDD [facility] Stop: 05/09/21 16:29 Last Admin: 04/09/21 17:47 Dose: 0.4 mg Documented by: Vitamin D (Cholecalciferol 1,000 Units 25 Mcg Tab) 1,000 units PO QAM [facility] Stop: 05/10/21 08:59
[2021-04-10] MEDS: FINASTERIDE 5 MG TAB PO SCH (08:39)
[2021-04-10] MEDS: rOPINIRole HCL 0.25 MG TABLET PO SCH ×4 (08:39→20:17)
[2021-04-10] MEDS: POT PHOSPHATE MONOBASIC W/ SOD TAB PO SCH ×4 (08:39→20:17)
[2021-04-10] MEDS: ATORVASTATIN 40 MG TAB PO SCH (08:39)
[2021-04-10] MEDS: CLOPIDOGREL BISULFATE 75 MG TAB PO SCH (08:39)
[2021-04-10] MEDS: lisinopril 2.5 MG TAB PO SCH (08:39)
[2021-04-10] MEDS: AMIODARONE 200 MG TAB PO SCH (08:39)
[2021-04-10] MEDS: CHOLECALCIFEROL 1,000 UNITS 25 MCG TAB PO SCH (08:39)
[2021-04-10] MEDS: DOCUSATE SODIUM 100 MG CAP PO SCH ×2 (08:39→20:24)
[2021-04-10] MEDS: FERROUS SULFATE 325 MG TAB PO SCH ×2 (08:39→20:17)
[2021-04-10] MEDS: CALCIUM CARBONATE 500 MG CHEWABLE TAB PO SCH ×2 (08:39→20:17)
[2021-04-10] MEDS: PANTOprazole 40 MG TAB PO SCH ×2 (08:39→20:17)
[2021-04-10] MEDS: GABAPENTIN 100 MG CAP PO SCH ×3 (08:39→20:17)
[2021-04-10] MEDS: MULTIVITAMIN TAB PO SCH (08:39)
[2021-04-10] MEDS: SACCHAROMYCES BOULARDII 250 MG CAP PO SCH (08:39)
[2021-04-10] MEDS: POLYETHYLENE (MIRALAX) 17 GM PACK PO SCH (08:40)
[2021-04-10] MEDS: levETIRAcetam 500 MG TAB PO SCH ×2 (08:40→20:17)
[2021-04-10] MEDS: APIXABAN 5 MG TABLET PO SCH ×2 (08:40→20:17)
[2021-04-10] MEDS: CHLORHEXIDINE GLUCONATE 0.12% 480 ML MT SCH ×3 (08:40→20:18)
[2021-04-10] MEDS: FLUoxetine HCL 10 MG CAP PO SCH (08:40)
[2021-04-10] MEDS: METOPROLOL TARTRATE 25 MG TAB PO SCH (08:40)
--- NOTE | 2021-04-10 09:05 | XRay Report ---
XR chest 1V portable CLINICAL HISTORY: repeat for aspiration. Follow-up COPD and interstitial prominence COMPARISON STUDY: 04/09/2021 TECHNIQUE: 1 view of the chest FINDINGS: Single frontal view of the chest demonstrates the heart to again be enlarged. Compared to previous ex amination, there is again no evidence for aspiration pneumonitis. There is again evidence for COPD mi ld prominence of interstitial markings. There is again evidence for small left pleural effusion and l eft basilar atelectasis. There is no right pleural effusion. There is no evidence for vascular conges tion. There is no acute osseous pathology. IMPRESSION: COPD with no evidence for aspiration pneumonitis. There is again a small left pleural eff usion and left basilar atelectasis. ACT 112: Negative or not required by law. Electronically signed by: Davy Delcid M.D. 04/10/2021 9:04 AM
[2021-04-10] MEDS: TAMSULOSIN HCL 0.4 MG CAP PO SCH (16:46)
[2021-04-11] MEDS: PIPERACILLIN/TAZOBACTAM 3.375 GM in DEXTROSE 5% 100 ML IV SCH (05:23)
[2021-04-11 06:31] LABS: Magnesium 2.1 mg/dl (1.8-2.4); Phosphorus 3.6 mg/dl (2.5-4.9)
[2021-04-11] MEDS: METOPROLOL TARTRATE 25 MG TAB PO SCH (07:47)
[2021-04-11] MEDS: FERROUS SULFATE 325 MG TAB PO SCH ×2 (07:47→20:52)
[2021-04-11] MEDS: APIXABAN 5 MG TABLET PO SCH ×2 (07:47→20:54)
[2021-04-11] MEDS: levETIRAcetam 500 MG TAB PO SCH ×2 (07:47→20:53)
[2021-04-11] MEDS: GABAPENTIN 100 MG CAP PO SCH ×3 (07:48→20:54)
[2021-04-11] MEDS: AMIODARONE 200 MG TAB PO SCH (07:48)
[2021-04-11] MEDS: POT PHOSPHATE MONOBASIC W/ SOD TAB PO SCH ×4 (07:49→20:53)
[2021-04-11] MEDS: PANTOprazole 40 MG TAB PO SCH ×2 (07:49→20:54)
[2021-04-11] MEDS: FLUoxetine HCL 10 MG CAP PO SCH (07:50)
[2021-04-11] MEDS: SACCHAROMYCES BOULARDII 250 MG CAP PO SCH (07:50)
[2021-04-11] MEDS: CLOPIDOGREL BISULFATE 75 MG TAB PO SCH (07:50)
[2021-04-11] MEDS: rOPINIRole HCL 0.25 MG TABLET PO SCH ×4 (07:50→20:53)
[2021-04-11] MEDS: FINASTERIDE 5 MG TAB PO SCH (07:50)
[2021-04-11] MEDS: lisinopril 2.5 MG TAB PO SCH (07:51)
[2021-04-11] MEDS: ATORVASTATIN 40 MG TAB PO SCH (07:51)
[2021-04-11] MEDS: CHLORHEXIDINE GLUCONATE 0.12% 480 ML MT SCH ×3 (07:51→20:52)
[2021-04-11] MEDS: MULTIVITAMIN TAB PO SCH (07:51)
[2021-04-11] MEDS: CHOLECALCIFEROL 1,000 UNITS 25 MCG TAB PO SCH (07:52)
[2021-04-11] MEDS: CALCIUM CARBONATE 500 MG CHEWABLE TAB PO SCH ×2 (07:52→20:58)
[2021-04-11] MEDS: DOCUSATE SODIUM 100 MG CAP PO SCH ×2 (07:52→20:53)
[2021-04-11] MEDS: POLYETHYLENE (MIRALAX) 17 GM PACK PO SCH (08:02)
[2021-04-11] MEDS: ERTAPENEM SODIUM 1,000 MG in SODIUM CHLORIDE 0.9% 50 ML IV SCH (10:36)
--- NOTE | 2021-04-11 14:52 | Hospitalist Progress Note ---
Date of Service April 11, 2021 Assessment & Plan (1) Episode of unresponsiveness: (2) Hypoxia: (3) UTI (urinary tract infection): (4) Lactic acidosis: Plan: This is a 70-year-old male who has a significant past medical history of prior right MCA CVA with left hemiplegia, CAD, PAF with chronic anticoagulation on Eliquis, chronic HFrEF, PE, HTN, COPD, CKD stage III, anemia, GI bleed, BPH who presented to ED 04/09 secondary to unresponsive episode while at [facility]. Episode of unresponsiveness Likely complex partial seizure Hypoxia Recent admission with similar episode; as well as unresponsive episode during hospitalization November underwent echocardiogram which revealed EF 40 to 45% with hypokinesis of anterior, anterior lateral, inferior and inferior lateral tracy Episode at that time felt possibly secondary to hypoxia in setting of aspiration pneumonia treated with IV antibiotic. November hospitalization was secondary to GI bleed, had episode of unresponsiveness during hospitalization and code purple/stroke alert was called. During November hospitalization he underwent neuro consult which felt likely secondary to hypoxia and a hypoactive delirium, CTA of head and neck which showed old right MCA territorial infarct with recannulization, moderate plaque in intracranial arteries, mild stenosis of left cavernous carotid. MRI brain consistent with old infarct. EEG showed slowing in the right parasagittal consistent with prior stroke and general slowing consistent with a nonspecific encephalopathy but no evidence of epileptiform activity Pt with known hx of COPD, episode of unresponsiveness/hypoxia at 0600, will need to obtain nocturnal oximetry study during this admission continue o2 supplementation as needed to keep O2 > 90% . No prior home O2 requir ement. Procal 0.38 --> uptrended to 6.17 (04/10) on Zosyn; CXR negative for aspiration pneumonitis( reported emesis from SNF). 04/09 Bl Cx: NG 48H Neurology on board: likely complex partial seizure, keppra 500 mg BD; f/u neuro in 2-3 months c/w current Mx, 2 step prior to DC. Lactic Acidosis likely 2/2 to hypoxia no s/sx of sepsis Resolved UTI admitting urine culture positive for ESBL Eoli Procal uptrended with emperic zosyn --> switched to Ertapenem 04/11 daily probiotic bond cath in place -- will remove once more towards baseline. hx of R MCA CVA with residual LHP continue plavix, statin, eliquis Chronic HFrEF daily weight, strict intake and output heart healthy, low sodium diet euvolemic, monitor volume status closely Continue metoprolol, lisinopril Atrial fibrillation Rate and rhythm controlled on amiodarone and metoprolol Continue Eliquis for anticoagulation COPD no acute exac prior tobacco user will need oximetry study prior to d/c to determine O2 needs DVT ppx: eliquis Dispo: tele PCP: [facility] FULL CODE Prior provider discussed with Tamara who agrees with above assessment and treatment plan. She states patient has been at [facility] for the past year. She confirms is full CODE STATUS. Dispo: likely able to return to [place] if no new issues arise overnight. Admission and Anticipated Discharge Date Admission Date: April 09, 2021 Subjective Patient was lying in bed, awakens while talking, easily dozes off back to sleep, this is fairly normal for him per RN. No new acute events overnight per RN. Patient is eating and moving bowels okay. Patient denies any chest pain/palpitation/fever/chills/sore throat/belly pain/other review of symptoms. Physical Exam Physical Exam: GENERAL: Drowsy and oriented x3. NAD, on 3 L. HEENT: No pallor, no icterus. Pupils equal, round and reactive to light. Oral mucosa moist. NECK: No JVD, no neck masses. HEART: S1 and S2 heard. Regular rate and rhythm. No murmur, no gallop. RESPIRATORY SYSTEM: Normal AP diameter. No accessory muscle use. No wheezing, questionable bibasilar rales. ABDOMEN: Soft, bowel sounds present, nontender, no distention. CENTRAL NERVOUS SYSTEM: No facial droop. Speech is clear. Obeys simple commands. Moves extremities. EXTREMITIES: No edema, no erythema seen. Results & Data Results & Data ([facility]) Vital Signs (Past 12 Hours) Vital Signs Temp Pulse Pulse Resp BP Pulse Ox 04/11/21 11:18 36.8 C 53 L 18 116/63 95 04/11/21 07:35 36.9 C 54 L 18 120/70 96 04/11/21 07:21 53 L 04/11/21 03:54 37.3 C 56 L 18 116/56 L 96
[2021-04-11] MEDS: TAMSULOSIN HCL 0.4 MG CAP PO SCH (15:58)
[2021-04-12 08:15] LABS: Hematocrit (blood only) 37.1 % (42-52); Mean Corpuscular Hemoglobin 28.5 pg (25-34); Mean Corpuscular Hgb Conc 32.3 g/dL (32-36); Mean Corpuscular Volume 88.1 fL (80-100); Mean Platelet Volume 10.6 fL (7.4-10.4); Platelet Count 155 K/uL (130-400); RDW Coefficient of Variation 17.7 % (11.5-14.5); RDW Standard Deviation 56.8 fL (36.4-46.3); Red Blood Count 4.21 M/uL (4.7-6.1); White Blood Count 5.68 K/uL (4.8-10.8)
[2021-04-12] MEDS: levETIRAcetam 500 MG TAB PO SCH (08:53)
[2021-04-12] MEDS: lisinopril 2.5 MG TAB PO SCH (08:53)
[2021-04-12] MEDS: rOPINIRole HCL 0.25 MG TABLET PO SCH ×2 (08:54→11:19)
[2021-04-12] MEDS: POT PHOSPHATE MONOBASIC W/ SOD TAB PO SCH ×2 (08:54→11:19)
[2021-04-12 08:55] LABS: BUN Creatinine Ratio 20.5 (10-20); Calcium 8.8 mg/dl (8.5-10.1); Creatinine Clr Calc Pharmacy 83.9 ml/min; Est GFR (African American) 100.9 ml/min; Est GFR (Non-African American) 87.1 ml/min; Potassium 3.8 mmol/L (3.5-5.1)
[2021-04-12] MEDS: PANTOprazole 40 MG TAB PO SCH (08:55)
[2021-04-12] MEDS: MULTIVITAMIN TAB PO SCH (08:55)
[2021-04-12] MEDS: CLOPIDOGREL BISULFATE 75 MG TAB PO SCH (08:55)
[2021-04-12] MEDS: ATORVASTATIN 40 MG TAB PO SCH (08:55)
[2021-04-12] MEDS: FLUoxetine HCL 10 MG CAP PO SCH (08:55)
[2021-04-12] MEDS: AMIODARONE 200 MG TAB PO SCH (08:55)
[2021-04-12] MEDS: SACCHAROMYCES BOULARDII 250 MG CAP PO SCH (08:56)
[2021-04-12] MEDS: CHOLECALCIFEROL 1,000 UNITS 25 MCG TAB PO SCH (08:56)
[2021-04-12] MEDS: GABAPENTIN 100 MG CAP PO SCH ×2 (08:56→11:23)
[2021-04-12] MEDS: METOPROLOL TARTRATE 25 MG TAB PO SCH (08:56)
[2021-04-12] MEDS: FINASTERIDE 5 MG TAB PO SCH (08:57)
[2021-04-12] MEDS: FERROUS SULFATE 325 MG TAB PO SCH (08:57)
[2021-04-12] MEDS: APIXABAN 5 MG TABLET PO SCH (08:57)
[2021-04-12] MEDS: CHLORHEXIDINE GLUCONATE 0.12% 480 ML MT SCH ×2 (08:57→11:20)
[2021-04-12] MEDS: DOCUSATE SODIUM 100 MG CAP PO SCH (08:58)
[2021-04-12] MEDS: CALCIUM CARBONATE 500 MG CHEWABLE TAB PO SCH (08:58)
[2021-04-12] MEDS: POLYETHYLENE (MIRALAX) 17 GM PACK PO SCH (08:59)
[2021-04-12] MEDS: ERTAPENEM SODIUM 1,000 MG in SODIUM CHLORIDE 0.9% 50 ML IV SCH (09:17)
--- NOTE | 2021-04-12 12:05 | Discharge Summary ---
Date of Service April 12, 2021 Admission HPI Per Admitting Provider This is a 70-year-old male who has a significant past medical history of prior right MCA CVA with left hemiplegia, CAD, atrial ablation anticoagulant on Eliquis, chronic HFrEF, history of PE, HTN, COPD, CKD stage III, anemia, history of GI bleed, BPH who presents to ED secondary to unresponsive episode while at [facility]. Of significance patient hospitalized 03/01 to 03/04/2021 secondary to similar unresponsive episode. At that time he was found unresponsive, hypoxic with concern for aspiration. Chest x-ray showed small left pleural effusion. Initially treated with IV Lasix and started on IV Unasyn due to concern for aspiration pneumonia. He was seen by speech therapy and placed on nectar thick liquids and easy to chew diet. He had echocardiogram which revealed EF 40 to 45% with mild to moderate hypokinesis of anterior, anterior lateral, inferolateral and inferior wall motion. It was felt brief unresponsive episode may be in setting of hypoxia. Patient was also hospitalized in November 2020 secondary to GI bleed. During hospitalization he again had a similar episode of brief unresponsiveness. At that time code vito was called and he was made a stroke alert. He underwent a CTA of head and neck which revealed an old left right MCA infarct with recannulization of the right MCA, moderate plaque of the intracranial arteries and mild stenosis of the left cavernous carotid. He was seen and evaluated by neurology. He underwent CT and MRI of head which were unchanged. EEG was also performed which revealed a slowing in the right parasagittal distribution consistent with prior infarct as well as generalized slowing significant for a a nonspecific encephalopathy. There was no epileptiform activity at that time. He presents to ED today due to at approximately 6 AM being found with minimal responsiveness, lethargy and hypoxia. He was last known well at approximately 5:30 AM without symptoms. EMS was summoned. He required 3 L of oxygen and was hypertensive. Patient is awake and alert during my examination. He does not recall being unresponsive and states he was brought to the ER because, "my butt hurts." He denies any fever, chills, sweats, lightheadedness, dizziness, chest pain, shortness of breath, cough, nausea, vomiting, abdominal pain. A Campos catheter was placed in ED. He states his last bowel movement was when he got to ED. History slightly unreliable given underlying cognition but he is alert and oriented to basics. In ED he initially did have a lactic acidosis which resolved with 1 L of IV fluid. His urinalysis concerning for infection. He did not meet SIRS or sepsis criteria. Lab work notable for WBC 11.67, H&H 13.3 and 40.5 and positive urinalysis. Chest x-ray consistent with emphysematous and COPD changes as well as a small left pleural effusion which is unchanged from prior exam. Also noted is left basilar atelectasis. He was initiated on IV cefepime. Admission Exam Per Admitting Provider Constitutional: Chronically ill-appearing male, thin,vitals as above, NAD, leaning to the left in bed, answers questions but not always appropriate, alert and oriented x3 to basics, conversing easily Head: Normocephalic, Atraumatic Eyes: PERRL, conjunctivae normal, anicteric sclerae ENMT: external ear and nose normal, oropharynx normal Neck: trachea midline, no thyromegaly normal visual inspection Respiratory: normal respiratory effort, lungs clear to auscultation, no wheeze, rales, rhonchi. Normal insp/exp effort, no accessory muscle use on 2 L of O2 via NC Cardiovascular: RRR, no murmur, no edema, bilateral venous stasis changes chronic vessels: no JVD or carotid bruit Chest: normal inspection of chest Abdomen: normal bowel sounds, soft, nontender, no hepatosplenomegaly Musculoskeletal: no cyanosis or clubbing, left-sided hemiplegia Skin: no rashes, warm and dry normal turgor Neurologic: PERRL, EOMI, accommodation nl, no face palsy, no dysarthria CN's II-XI intact bilaterally and moves all extremities Psychiatric: A+Ox3 to self, month in hospital, basics only euthymic affect Lymphatic: no cervical or axillary lymphadenopathy : Campos catheter in place draining sami cloudy urine Principal Diagnosis Likely complex partial seizure ESBL UTI Discharge Exam GENERAL: Alert and oriented x3. NAD, on 3 L. HEENT: No pallor, no icterus. Pupils equal, round and reactive to light. Oral mucosa moist. NECK: No JVD, no neck masses. HEART: S1 and S2 heard. Regular rate and rhythm. No murmur, no gallop. RESPIRATORY SYSTEM: Normal AP diameter. No accessory muscle use. No wheezing, no crackles. ABDOMEN: Soft, bowel sounds present, nontender, no distention. CENTRAL NERVOUS SYSTEM: No facial droop. Speech is clear. Obeys simple commands. Moves extremities. EXTREMITIES: No edema, no erythema seen. Discharge Data Allergies Allergy/AdvReac Type Severity Reaction Status Date / Time No Known Allergies Allergy Verified 04/09/21 09:10 Consultations 04/09/21 09:57 ED Decision to Admit Stat 04/09/21 12:15 Consult Neurology Routine Ordered Studies 04/09/21 07:34 CT head/brain wo con Stat 04/09/21 07:39 CT abd pelvis IV con only Stat Hospital Course (1) Episode of unresponsiveness: (2) Hypoxia: (3) UTI (urinary tract infection): (4) Lactic acidosis: This is a 70-year-old male who has a significant past medical history of prior right MCA CVA with left hemiplegia, CAD, PAF with chronic anticoagulation on Eliquis, chronic HFrEF, PE, HTN, COPD, CKD stage III, anemia, GI bleed, BPH who presented to ED 04/09 secondary to unresponsive episode while at [facility]. Patient was managed for the following while in hospital: Episode of unresponsiveness Likely complex partial seizure Hypoxia Recent admission with similar episode; as well as unresponsive episode during hospitalization November underwent echocardiogram which revealed EF 40 to 45% with hypokinesis of anterior, anterior lateral, inferior and inferior lateral tracy Episode at that time felt possibly secondary to hypoxia in setting of aspiration pneumonia treated with IV antibiotic. November hospitalization was secondary to GI bleed, had episode of unresponsiveness during hospitalization and code purple/stroke alert was called. During November hospitalization he underwent neuro consult which felt likely secondary to hypoxia and a hypoactive delirium, CTA of head and neck which showed old right MCA territorial infarct with recannulization, moderate plaque in intracranial arteries, mild stenosis of left cavernous carotid. MRI brain consistent with old infarct. EEG showed slowing in the right parasagittal consistent with prior stroke and general slowing consistent with a nonspecific encephalopathy but no evidence of epileptiform activity Pt with known hx of COPD, episode of unresponsiveness/hypoxia at 0600, patient will benefit from outpatient sleep study. continue o2 supplementation as needed to keep O2 > 90% . No prior home O2 requirement. Procal 0.38 --> uptrended to 6.17 (04/10) on Zosyn; CXR negative for aspiration pneumonitis( reported emesis from SNF). Pro-Geo increase is likely due to under treatment for his UTI. 04/09 Bl Cx: NG 48H Neurology on board: likely complex partial seizure, keppra 500 mg BD; f/u neuro in 2-3 months c/w current Mx Lactic Acidosis Resolved UTI admitting urine culture positive for ESBL Eoli Procal uptrended with emperic zosyn --> switched to Ertapenem 04/11 Continue ertapenem for total of 10 days, up to 04/20. Daily probiotic, can remove Campos catheter at discharge. hx of R MCA CVA with residual LHP continue plavix, statin, eliquis Chronic HFrEF daily weight, strict intake and output heart healthy, low sodium diet euvolemic Continue metoprolol, lisinopril Atrial fibrillation Rate and rhythm controlled on amiodarone and metoprolol Continue Eliquis for anticoagulation COPD no acute exac prior tobacco user will need oximetry study prior to d/c to determine O2 needs DVT ppx: eliquis Dispo: tele PCP: [facility] FULL CODE Prior provider discussed with Tamara who agrees with above assessment and treatment plan. She states patient has been at [facility] for the past year. She confirms is full CODE STATUS. Dispo: likely able to return to [place] if no new issues arise overnight. Patient is being discharged to [facility] with following instruction at the point of discharge: Follow-up with your primary care physician within a week time. You will be discharged on 8 more days of ertapenem antibiotic for your UTI, you will be given this antibiotic through midline. Neurology evaluated you while inpatient, started you on Keppra, follow-up with neurology in 2 to 3 months. You will benefit from sleep study as an outpatient. Take medications as prescribed. Total Time Total Time Spent Total Time Spent (In Minutes): 40 Discharge Plan Discharge Items Patient Disposition: Transfer [facility] Reason For Visit: UNRESPONSIVE EPISODE Discharge Diagnosis: Likely complex partial seizure ESBL UTI Activity: Resume your previous activity Non-emergency contact: Primary Care Provider Call non-emergency contact if: you have any medication questions, your symptoms worsen and your temperature is above 101 Follow-up/Referrals: Cynthia Garcia PA-C [Physician Orthopedic Physical Therapist] - (Date & Time 07/25/2021 9:20 AM Provider Cynthia Garcia PA-C Department Neurology [facility] ) Yanni Ferreira [Primary Care Provider] - Diet: Heart Healthy Addtl Attending Provider Instructions: Follow-up with your primary care physician within a week time. You will be discharged on 8 more days of ertapenem antibiotic for UTI, will be given this antibiotic through midline. Neurology evaluated you while inpatient, started you on Keppra, follow-up with neurology in 2 to 3 months. You will benefit from sleep study as an outpatient. Take medications as prescribed. Pending Studies at Discharge: No Stand-Alone Forms: My [facility] Skilled Items Patient informed of condition?: Yes DNR: No Discharge Level of Care: Skilled Communicable Disease: No Discharge Prognosis: Stable Lines: Mid-Line Urinary Catheter: No Medications and DC Order Prescriptions: New levetiracetam [Keppra] 500 mg Tablet 500 mg PO BID Qty: 60 RF: 0 Probiotic 10 billion cell capsule 100 mg PO DAILY 8 Days Qty: 8 RF: 0 ertapenem 1 gram recon soln 1 g IV DAILY 8 Days Qty: 8 RF: 0 Continued multivitamin [Daily Multi-Vitamin] tablet 1 tab PO QAM RF: 0 acetaminophen [Tylenol] 325 mg Tablet 650 mg PO Q4H PRN (Reason: TEMP >100/PAIN) RF: 0 amiodarone [Pacerone] 200 mg tablet 200 mg PO QAM RF: 0 tamsulosin [Flomax] 0.4 mg capsule 0.4 mg PO QDD RF: 0 ropinirole 0.5 mg tablet 0.5 mg PO QID RF: 0 gabapentin [Neurontin] 100 mg capsule 100 mg PO TID RF: 0 finasteride [Proscar] 5 mg tablet 5 mg PO QAM RF: 0 cholecalciferol (vitamin D3) [Vitamin D3] 25 mcg (1,000 unit) capsule 25 mcg PO QAM RF: 0 chlorhexidine gluconate [Peridex] 0.12 % mouthwash 1 applic PO TID RF: 0 Eliquis 5 mg tablet 5 mg PO BID RF: 0 atorvastatin [Lipitor] 80 mg tablet 80 mg PO QAM RF: 0 clopidogrel [Plavix] 75 mg tablet 75 mg PO QAM RF: 0 metoprolol tartrate 25 mg tablet 12.5 mg PO QAM RF: 0 calcium carbonate [Calcium Antacid] 200 mg calcium (500 mg) tablet,chewable 500 mg PO BID RF: 0 polyethylene glycol 3350 [Miralax] 17 gram Powder In Packet 17 g PO DAILY Qty: 30 RF: 0 pantoprazole 40 mg Tablet,Delayed Release (Dr/Ec) 40 mg PO BID Qty: 60 RF: 1 docusate sodium [Colace] 100 mg Capsule 100 mg PO BID Qty: 0 RF: 0 ferrous sulfate 325 mg (65 mg iron) Tablet 325 mg PO BID RF: 0 Phospha 250 Neutral 250 mg Tablet 1 tab PO QID RF: 0 lisinopril 2.5 mg Tablet 2.5 mg PO QAM RF: 0 fluoxetine 10 mg Capsule 10 mg PO QAM RF: 0 Discharge Orders: Discharge Order (Routine); Ordered 04/12/21 Ordered By: Inocente Felton Admission Data Admit Date/Time: 04/11/21 14:30 Attending Provider: Inocente Felton Admit Provider: Inocente Felton [facility] Other [facility]iders: Kal Tate ; Hannah Rush I. ; [facility]
== END 2021-04-12 15:30 ==
LOC: EDINP 07:18 → ED 07:18 → SUATTDRO 10:25 → 2N 15:45
DX: N18.30 Chronic kidney disease, stage 3 unspecified; N39.0 Urinary tract infection, site not specified; R09.02 Hypoxemia; I11.0 Hypertensive heart disease with heart failure; N40.0 Benign prostatic hyperplasia without lower urinary tract symptoms; R41.89 Other symptoms and signs involving cognitive functions and awareness; Z86.711 Personal history of pulmonary embolism; I48.0 Paroxysmal atrial fibrillation; Z79.01 Long term (current) use of anticoagulants; J44.9 Chronic obstructive pulmonary disease, unspecified; E87.2 Acidosis; I25.10 Atherosclerotic heart disease of native coronary artery without angina pectoris; I69.359 Hemiplegia and hemiparesis following cerebral infarction affecting unspecified side

== ENCOUNTER 2021-10-20 19:49 | Inpatient (IN) ==
--- NOTE | 2021-10-20 20:04 | Emergency Department Note ---
Impression & Plan Acute hypoxemic respiratory failure, KAITY (acute kidney injury), Acute dehydration, Sepsis ED Provider Note NAME: ELVA SANON AGE: 71 SEX: M : 1950 ARRIVES VIA: Ambulance INFORMANT: Patient, ED PROVIDER(S): Tyrel Wall MD Chief Complaint: Vomiting, weakness HPI: Patient presents from care facility due to concern for vomiting and weakness. There was concern about coffee-ground emesis and the patient did have a small bout of this in route via ambulance. Patient's vital signs at the home showed that the patient was hypotensive and the patient had been initiated on 400 cc of fluid prior to arrival. Patient was afebrile and tachycardic. The patient does have a significant past medical history and is reported on chronic blood thinners. The patient is DNR/DNI. There was concern about his general weakness although in route EMS states that he seemed to be more alert. Patient at bedside denies any headache chest pain or abdominal pain. The patient denies any current nausea. ROS: See HPI for pertinent positives and negatives. A total of 10 systems were reviewed and otherwise negative. Past medical history: See below Surgical history: See below Social history: See below Physical Exam: GENERAL: Ill in appearance, moderate distress, tachypneic. EYE EXAM: Normal conjunctiva. PERRL, no anisocoria. OROPHARYNX: Dry mucus membranes. Grossly normal dentition. NECK: Supple, no nuchal rigidity, no adenopathy, non-tender. No signs of meningismus. LUNGS: No obvious crackles, tachypnea noted. HEART: Tachycardic and regular, no MRG. ABDOMEN: Abdomen soft, non-tender, normo-active bowel sounds, no masses, no rebound or guarding. BACK: No CVA TTP. SKIN: No rashes and no bruising. UPPER EXTREMITIES: Upper extremities are grossly normal. LOWER EXTREMITIES: Grossly normal, no edema. NEURO EXAM: Awake and alert follows basic commands, cranial nerves are grossly intact, weakness of the left side compared to the right. Differential diagnoses: Diverticulosis, AVM, coagulopathy, colitis, inflammatory bowel disease, malignancy, Sharon-Concepcion tear, esophagitis, peptic ulcer disease, variceal bleed, gastritis, epistaxis, fissure, hemorrhoids, as well as other pathologies. Course: Patient was seen and evaluated the bedside. Full history physical exam was performed. EKG interpreted by me Difficult ascertain rhythm secondary to motion artifact but appears grossly regular with a ventricular rate of 98, normal intervals and normal axis. Imaging Studies: See Below Cardiac monitoring: An order was placed for continuous cardiac monitoring. The monitor shows a rate of 115 with tachycardic and regular rhythm. MDM: Patient presented due to concern for possible GI bleed in the setting of nausea vomiting and is on chronic blood thinning medications. Blood work was obtained and the patient did have continued IV fluid hydration administered. The patient was on an oxime mask and was satting in the low 90s. The patient does have a history of CHF so the patient was gently hydrated initially. Type and screen also ordered second line was obtained and the patient was started on a PPI bolus and drip. Patient's blood pressure did improve with the IV fluids. The patient was satting in the high 80s on the 6 L was up try to titrated to 8 L. Per the records from the care facility the patient is DNR/DNI but antibiotics and blood transfusions are okay as well as hospitalization. Given the concern for his respiratory status the patient was uptitrated and started on high flow nasal cannula which the patient tolerated and the patient sats did improve and were maintained well. BiPAP was avoided given the patient's recent vomiting. The patient's blood work did show concern for white count of 25. Patient does have a normal H&H and platelet count. The patient's kidney function is worse compared to prior with associated KAITY with creatinine of 2.2. Patient was ordered additional IV fluids. Patient's troponin is elevated at 94. Do believe that this is related to the patient's overall clinical status. The patient's blood pressure did improve with IV fluids. Patient was not initially or empirically ordered 30 cc/kg bolus given the patient's history of CHF. Blood cultures were obtained and the patient was started on IV Zosyn due to concern for possible aspiration pneumonitis in the setting of vomiting as well as in light of the urine still pending. I did speak with the on-call hospitalist Dr. [id number] and the patient was to be admitted to the medicine service. Critical Care: I have personally spent 55 minutes of critical care time in direct management of this patient. This includes bedside care, interpretation of diagnostic studies, and testing, discussion with consultants, patient, and family members, and other require inpatient management activities. This 55 minutes is in excess of all separately billable procedures. 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) Dysarthria and anarthria Dysphagia Essential (primary) hypertension GIB (gastrointestinal bleeding) Hematuria Hemiplegia and 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- dominant side Hypercholesterolemia Hypoxia Inflammatory disorders of scrotum Mood disorder On home oxygen therapy 3L N/C at all times Osteoporosis Other obstructive and reflux uropathy Other pulmonary embolism without acute cor pulmonale Pressure ulcer Rectal bleeding Renal calculi Restless leg syndrome ST elevation myocardial infarction (STEMI) Unspecified atrial fibrillation Unspecified systolic (congestive) heart failure UTI (urinary tract infection) Surgical History History of hernia repair S/P drug eluting coronary stent placement (~12/03/19) S/P PTCA (percutaneous transluminal coronary angioplasty) Family History Denies family history of Ovarian cancer Prostate cancer Myocardial infarction Breast cancer Colorectal cancer Social History Smoking Status: Unknown if ever smoked Tobacco Type: Cigarettes and Cigars Second Hand Exposure: No; Hx Substance Use: No Preferred Language: [place] Communication Ability: Effective Nurse Substance Abuse Required: No Beliefs That Will Affect Care: None marital status: Current Living Situation: [facility] Current Living Situation Comment: [facility] (for rehab per patient) current occupational status: employed and retired current occupation: [employer] How many Children do You have: 2 Feels Safe at Home: Yes Dental Care, Regularly: No Physical Activity Frequency: Does not Exercise Assistive Devices: None Allergies Allergies Allergy/AdvReac Type Severity Reaction Status Date / Time No Known Allergies Allergy Verified 07/12/21 10:52 Home Meds Home Medications Medication Instructions Recorded Confirmed multivitamin (Daily Multi-Vitamin) 1 tab PO QAM 11/03/18 10/20/21 acetaminophen 325 mg tablet 650 mg PO Q4H PRN 09/15/20 10/20/21 (Tylenol) amiodarone 200 mg tablet (Pacerone) 200 mg PO QAM 09/15/20 10/20/21 apixaban 5 mg tablet (Eliquis) 5 mg PO BID 09/15/20 10/20/21 atorvastatin 80 mg tablet (Lipitor) 80 mg PO QAM 09/15/20 10/20/21 cholecalciferol (vitamin D3) 25 25 mcg PO QAM 09/15/20 10/20/21 mcg (1,000 unit) capsule (Vitamin D3) clopidogrel 75 mg tablet (Plavix) 75 mg PO QAM 09/15/20 10/20/21 finasteride 5 mg tablet (Proscar) 5 mg PO QAM 09/15/20 10/20/21 gabapentin 100 mg capsule 100 mg PO TID 09/15/20 10/20/21 (Neurontin) metoprolol tartrate 25 mg tablet 12.5 mg PO QAM 09/15/20 10/20/21 ropinirole 0.5 mg tablet 0.5 mg PO QID 09/15/20 10/20/21 tamsulosin 0.4 mg capsule (Flomax) 0.4 mg PO QDD 09/15/20 10/20/21 calcium carbonate 200 mg calcium 500 mg PO BID 11/28/20 10/20/21 (500 mg) chewable tablet (Calcium Antacid) ferrous sulfate 325 mg (65 mg 325 mg PO BID 03/01/21 10/20/21 iron) tablet lisinopril 2.5 mg tablet 2.5 mg PO QAM 03/01/21 10/20/21 sodium di- and 1 tab PO QID 03/01/21 10/20/21 monophosphate-potassium phos monobasic 250 mg tablet (Phospha 250 Neutral) fluoxetine 10 mg capsule 10 mg PO QAM 04/09/21 10/20/21 Lactobacillus acidophilus 10 10,000 mmu cells PO QAM 05/29/21 10/20/21 billion cell capsule (Probiotic) bisacodyl 10 mg rectal suppository 10 mg IA DAILY PRN 06/07/21 10/20/21 (Dulcolax (bisacodyl)) docusate sodium 100 mg capsule 100 mg PO QAM 06/07/21 10/20/21 (Colace) ondansetron 4 mg disintegrating 4 mg PO Q6H PRN 10/20/21 10/20/21 tablet Previous Rx's Medication Instructions Recorded pantoprazole 40 mg tablet,delayed 40 mg PO BID #60 tab 12/10/20 release levetiracetam 500 mg tablet 500 mg PO BID #60 tab 04/12/21 (Keppra) revefenacin 175 mcg/3 mL solution 175 mcg INHALATION DAILY #90 ml 07/12/21 for nebulization (Yupelri) Results & Data (ED) Vital Signs Vital Signs - 24 hr 10/20/21 19:56 10/20/21 19:58 10/20/21 20:00 Temperature 37 C 37 C Temperature Source Oral Oral Pulse Rate 84 83 Pulse Rate [Apical] 84 Pulse Rate from SpO2 Sensor 86 Pulse Rhythm Regular Pulse Rhythm [Apical] Regular Respiratory Rate 20 20 23 Respiratory Effort / Characteristics Spontaneous Respiratory Depth Normal Shallow Respiratory Pattern Regular Blood Pressure 102/53 L 102/53 L Blood Pressure [Right Arm] 102/53 L Blood Pressure Mean 69 69 Blood Pressure Mean [Right Arm] 69 Blood Pressure Position Lying Blood Pressure Position [Right Arm] Semi-fowlers Pulse Oximetry 92 93 92 Oxygen Delivery Method Oxymask Oxymask Oxygen Flow Rate 6 6 Fraction of Inspired Oxygen SaO2/FiO2 Ratio Sepsis Recent Fever Within 48 Hours No Sepsis New/Unexplained Change in Mental Status No Sepsis Action Taken by Nursing No Action Required 10/20/21 20:30 10/20/21 20:55 10/20/21 21:00 Temperature Temperature Source Pulse Rate 116 H 115 H Pulse Rate [Apical] Pulse Rate from SpO2 Sensor 117 H Pulse Rhythm Pulse Rhythm [Apical] Respiratory Rate 17 36 H Respiratory Effort / Characteristics Respiratory Depth Respiratory Pattern Blood Pressure 131/102 H 163/69 H Blood Pressure [Right Arm] Blood Pressure Mean 111 100 Blood Pressure Mean [Right Arm] Blood Pressure Position Blood Pressure Position [Right Arm] Pulse Oximetry 92 92 Oxygen Delivery Method Oxygen Flow Rate Fraction of Inspired Oxygen SaO2/FiO2 Ratio Sepsis Recent Fever Within 48 Hours Sepsis New/Unexplained Change in Mental Status Sepsis Action Taken by Nursing 10/20/21 21:30 10/20/21 21:31 10/20/21 22:00 Temperature Temperature Source Pulse Rate 97 H 98 H 93 H Pulse Rate [Apical] Pulse Rate from SpO2 Sensor 105 H 98 H 94 H Pulse Rhythm Pulse Rhythm [Apical] Respiratory Rate 25 H 30 H 25 H Respiratory Effort / Characteristics Respiratory Depth Respiratory Pattern Blood Pressure 107/48 L 92/58 L Blood Pressure [Right Arm] Blood Pressure Mean 67 69 Blood Pressure Mean [Right Arm] Blood Pressure Position Blood Pressure Position [Right Arm] Pulse Oximetry 90 92 88 L Oxygen Delivery Method Oxygen Flow Rate Fraction of Inspired Oxygen SaO2/FiO2 Ratio Sepsis Recent Fever Within 48 Hours Sepsis New/Unexplained Change in Mental Status Sepsis Action Taken by Nursing 10/20/21 22:02 10/20/21 22:30 10/20/21 22:31 Temperature Temperature Source Pulse Rate 96 H 97 H Pulse Rate [Apical] 96 H Pulse Rate from SpO2 Sensor 97 H 99 H Pulse Rhythm Pulse Rhythm [Apical] Respiratory Rate 28 H 23 20 Respiratory Effort / Characteristics Spontaneous Respiratory Depth Respiratory Pattern Blood Pressure 111/40 L Blood Pressure [Right Arm] Blood Pressure Mean 63 Blood Pressure Mean [Right Arm] Blood Pressure Position Blood Pressure Position [Right Arm] Pulse Oximetry 92 85 L 90 Oxygen Delivery Method High Flow Nasal Cannula Oxygen Flow Rate 40 Fraction of Inspired Oxygen 75 SaO2/FiO2 Ratio Sepsis Recent Fever Within 48 Hours Sepsis New/Unexplained Change in Mental Status Sepsis Action Taken by Nursing 10/20/21 23:00 10/20/21 23:01 10/20/21 23:33 Temperature Temperature Source Pulse Rate 115 H 116 H Pulse Rate [Apical] 102 H Pulse Rate from SpO2 Sensor 115 H 116 H Pulse Rhythm Pulse Rhythm [Apical] Respiratory Rate 34 H 32 H 25 H Respiratory Effort / Characteristics Respiratory Depth Respiratory Pattern Blood Pressure 148/68 H Blood Pressure [Right Arm] 103/46 L Blood Pressure Mean 94 Blood Pressure Mean [Right Arm] 65 Blood Pressure Position Blood Pressure Position [Right Arm] Semi-fowlers Pulse Oximetry 91 92 92 Oxygen Delivery Method High Flow Nasal Cannula Oxygen Flow Rate 40 Fraction of Inspired Oxygen 75 SaO2/FiO2 Ratio 122 Sepsis Recent Fever Within 48 Hours Sepsis New/Unexplained Change in Mental Status Sepsis Action Taken by Nursing 10/21/21 00:10 10/21/21 00:42 10/21/21 01:07 Temperature 38.0 C H Temperature Source Oral Pulse Rate Pulse Rate [Apical] 94 H 99 H 90 Pulse Rate from SpO2 Sensor Pulse Rhythm Pulse Rhythm [Apical] Respiratory Rate 24 18 24 Respiratory Effort / Characteristics Spontaneous Respiratory Depth Respiratory Pattern Blood Pressure Blood Pressure [Right Arm] 75/32 L 75/33 L Blood Pressure Mean Blood Pressure Mean [Right Arm] 46 47 Blood Pressure Position Blood Pressure Position [Right Arm] Pulse Oximetry 94 93 96 Oxygen Delivery Method High Flow Nasal Cannula High Flow Nasal Cannula High Flow Nasal Cannula Oxygen Flow Rate 40 40 40 Fraction of Inspired Oxygen 75 75 75 SaO2/FiO2 Ratio 124 128 Sepsis Recent Fever Within 48 Hours Sepsis New/Unexplained Change in Mental Status Sepsis Action Taken by [facility] Medications Current Medication List: was personally reviewed by me Laboratory Data Attestation: I reviewed the patient's lab results. Result diagrams: 10/21/21 04:29 10/21/21 04:29 Lab Results 10/20/21 10/20/21 10/20/21 Range/Units 20:29 20:29 20:29 WBC 25.34 H (4.8-10.8) K/uL RBC 4.54 L (4.7-6.1) M/uL Hgb 15.0 (14.0-18.0) g/dL Hct 43.3 (42-52) % MCV 95.4 (80-100) fL MCH 33.0 (25-34) pg MCHC 34.6 (32-36) g/dL RDW Std Deviation 49.1 H (36.4-46.3) fL RDW Coeff of [place] 14.0 (11.5-14.5) % Plt Count 165 (130-400) K/uL MPV 12.0 H (7.4-10.4) fL Immature Gran % (Auto) 0.4 % Neut % (Auto) 94.4 % Lymph % (Auto) 1.9 % [place] % (Auto) 3.3 % Eos % (Auto) 0.0 % Baso % (Auto) 0.0 % Neut # (Auto) 23.93 H (1.4-6.5) K/uL Lymph # (Auto) 0.47 L (1.2-3.4) K/uL [place] # (Auto) 0.84 H (0.11-0.59) K/uL Eos # (Auto) 0.00 (0-0.5) K/uL Baso # (Auto) 0.01 (0-0.2) K/uL Immature Gran # (Auto) 0.09 H (0.00-0.02) K/uL Echinocytes 1+ PT 13.0 H (9.0-12.0) Seconds INR 1.2 H (0.9-1.1) APTT 31.9 H (21.0-31.0) Seconds PTT Ratio 1.2 Sodium (136-145) mmol/L Potassium (3.5-5.1) mmol/L Chloride (98-107) mmol/L Carbon Dioxide (21-32) mmol/L Anion Gap (3-11) BUN (6-23) mg/dl Creatinine (0.6-1.4) mg/dl Est Cr Clr Drug Dosing ml/min Est GFR ( Amer) ml/min Est GFR (Non-Af Amer) ml/min BUN/Creatinine Ratio (10-20) Glucose (70-99(Fasting)) mg/dl Calcium (8.5-10.1) mg/dl Total Bilirubin (0.2-1.0) mg/dl AST (13-39) U/L ALT (7-52) U/L Alkaline Phosphatase (34-104) U/L Troponin I High Sens (0-20) pg/ml Total Protein (6.0-8.3) gm/dl Albumin (3.4-5.0) gm/dl Globulin (2.5-4.0) gm/dl Albumin/Globulin Ratio (0.9-2) Urine Color Urine Appearance (Clear) Urine pH (4.5-7.5) Ur Specific [place] (1.000-1.030) Urine Protein (Negative) Urine Glucose (UA) (Negative) Urine Ketones (Negative) Urine Blood (Negative) Urine Nitrite (Negative) Urine Bilirubin (Negative) Urine Urobilinogen (Negative) Ur Leukocyte Esterase (Negative) Urine WBC (Auto) (0-5) /hpf Urine RBC (Auto) (0-4) /hpf U Hyaline Cast (Auto) (0-5) /lpf U Epithel Cells (Auto) (0-5) /lpf Urine Bacteria (Auto) (Negative) POC Stool Occult Blood (Negative) SARS-CoV-2, RNA, NAAT (NEGATIVE) Blood Type O Positive Antibody Screen NEGATIVE 10/20/21 10/20/21 10/20/21 Range/Units 20:29 20:52 20:52 WBC (4.8-10.8) K/uL RBC (4.7-6.1) M/uL Hgb (14.0-18.0) g/dL Hct (42-52) % MCV (80-100) fL MCH (25-34) pg MCHC (32-36) g/dL RDW Std Deviation (36.4-46.3) fL RDW Coeff of [place] (11.5-14.5) % Plt Count (130-400) K/uL MPV (7.4-10.4) fL Immature Gran % (Auto) % Neut % (Auto) % Lymph % (Auto) % [place] % (Auto) % Eos % (Auto) % Baso % (Auto) % Neut # (Auto) (1.4-6.5) K/uL Lymph # (Auto) (1.2-3.4) K/uL [place] # (Auto) (0.11-0.59) K/uL Eos # (Auto) (0-0.5) K/uL Baso # (Auto) (0-0.2) K/uL Immature Gran # (Auto) (0.00-0.02) K/uL Echinocytes PT (9.0-12.0) Seconds INR (0.9-1.1) APTT (21.0-31.0) Seconds PTT Ratio Sodium 144 (136-145) mmol/L Potassium 4.2 (3.5-5.1) mmol/L Chloride 107 (98-107) mmol/L Carbon Dioxide 25 (21-32) mmol/L Anion Gap 12 H (3-11) BUN 39 H (6-23) mg/dl Creatinine 2.24 H (0.6-1.4) mg/dl Est Cr Clr Drug Dosing 31.1 ml/min Est GFR ( Amer) 32.5 ml/min Est GFR (Non-Af Amer) 28.0 ml/min BUN/Creatinine Ratio 17.4 (10-20) Glucose 114 H (70-99(Fasting)) mg/dl Calcium 9.4 (8.5-10.1) mg/dl Total Bilirubin 1.3 H (0.2-1.0) mg/dl AST 24 (13-39) U/L ALT 24 (7-52) U/L Alkaline Phosphatase 103 (34-104) U/L Troponin I High Sens 94.5 H* (0-20) pg/ml Total Protein 6.7 (6.0-8.3) gm/dl Albumin 3.9 (3.4-5.0) gm/dl Globulin 2.8 (2.5-4.0) gm/dl Albumin/Globulin Ratio 1.4 (0.9-2) Urine Color Urine Appearance (Clear) Urine pH (4.5-7.5) Ur Specific [place] (1.000-1.030) Urine Protein (Negative) Urine Glucose (UA) (Negative) Urine Ketones (Negative) Urine Blood (Negative) Urine Nitrite (Negative) Urine Bilirubin (Negative) Urine Urobilinogen (Negative) Ur Leukocyte Esterase (Negative) Urine WBC (Auto) (0-5) /hpf Urine RBC (Auto) (0-4) /hpf U Hyaline Cast (Auto) (0-5) /lpf U Epithel Cells (Auto) (0-5) /lpf Urine Bacteria (Auto) (Negative) POC Stool Occult Blood Positive A (Negative) SARS-CoV-2, RNA, NAAT NEGATIVE (NEGATIVE) Blood Type Antibody Screen 10/20/21 Range/Units 21:40 WBC (4.8-10.8) K/uL RBC (4.7-6.1) M/uL Hgb (14.0-18.0) g/dL Hct (42-52) % MCV (80-100) fL MCH (25-34) pg MCHC (32-36) g/dL RDW Std Deviation (36.4-46.3) fL RDW Coeff of [place] (11.5-14.5) % Plt Count (130-400) K/uL MPV (7.4-10.4) fL Immature Gran % (Auto) % Neut % (Auto) % Lymph % (Auto) % [place] % (Auto) % Eos % (Auto) % Baso % (Auto) % Neut # (Auto) (1.4-6.5) K/uL Lymph # (Auto) (1.2-3.4) K/uL [place] # (Auto) (0.11-0.59) K/uL Eos # (Auto) (0-0.5) K/uL Baso # (Auto) (0-0.2) K/uL Immature Gran # (Auto) (0.00-0.02) K/uL Echinocytes PT (9.0-12.0) Seconds INR (0.9-1.1) APTT (21.0-31.0) Seconds PTT Ratio Sodium (136-145) mmol/L Potassium (3.5-5.1) mmol/L Chloride (98-107) mmol/L Carbon Dioxide (21-32) mmol/L Anion Gap (3-11) BUN (6-23) mg/dl Creatinine (0.6-1.4) mg/dl Est Cr Clr Drug Dosing ml/min Est GFR ( Amer) ml/min Est GFR (Non-Af Amer) ml/min BUN/Creatinine Ratio (10-20) Glucose (70-99(Fasting)) mg/dl Calcium (8.5-10.1) mg/dl Total Bilirubin (0.2-1.0) mg/dl AST (13-39) U/L ALT (7-52) U/L Alkaline Phosphatase (34-104) U/L Troponin I High Sens (0-20) pg/ml Total Protein (6.0-8.3) gm/dl Albumin (3.4-5.0) gm/dl Globulin (2.5-4.0) gm/dl Albumin/Globulin Ratio (0.9-2) Urine Color Dark Yellow Urine Appearance Turbid A (Clear) Urine pH 5.0 (4.5-7.5) Ur Specific [place] 1.019 (1.000-1.030) Urine Protein 2+ H (Negative) Urine Glucose (UA) Negative (Negative) Urine Ketones Negative (Negative) Urine Blood 3+ H (Negative) Urine Nitrite Negative (Negative) Urine Bilirubin Negative (Negative) Urine Urobilinogen Negative (Negative) Ur Leukocyte Esterase 3+ H (Negative) Urine WBC (Auto) >30 H (0-5) /hpf Urine RBC (Auto) 0-4 (0-4) /hpf U Hyaline Cast (Auto) 1-5 (0-5) /lpf U Epithel Cells (Auto) 10-20 H (0-5) /lpf Urine Bacteria (Auto) 4+ H (Negative) POC Stool Occult Blood (Negative) SARS-CoV-2, RNA, NAAT (NEGATIVE) Blood Type Antibody Screen Administered Medications Amiodarone HCl (Amiodarone 200 Mg Tab) [facility] [place]: 11/20/21 08:59 Last Admin: 10/21/21 09:29 Dose: Not Given Documented by: [id number] Atorvastatin Calcium (Atorvastatin 40 Mg Tab) 80 mg PO QAM [facility] Stop: 11/20/21 08:59 Last Admin: 10/21/21 09:29 Dose: Not Given Documented by: [id number] Finasteride (Finasteride 5 Mg Tab) 5 mg PO QAM [facility] Stop: 11/20/21 08:59 Last Admin: 10/21/21 09:29 Dose: Not Given Documented by: [id number] Fluoxetine HCl (Fluoxetine Hcl 10 Mg Cap) 10 mg PO QAM [facility] Stop: 11/20/21 08:59 Last Admin: 10/21/21 09:29 Dose: Not Given Documented by: [id number] Gabapentin (Gabapentin 100 Mg Cap) 100 mg PO TID [facility] Stop: 11/20/21 08:59 Last Admin: 10/21/21 09:29 Dose: Not Given Documented by: [id number] Meropenem 500 mg/ Syringe 10 mls @ 2 mls/min IV Q8H [facility]; Protocol Stop: 10/31/21 00:59 Last Admin: 10/21/21 09:52 Dose: 2 mls/min Documented by: [id number] Admin: 10/21/21 01:30 Dose: 2 mls/min Documented by: [id number] Levetiracetam 500 mg/ Sodium (Chloride) 105 mls @ 420 mls/hr IV Q12H [facility] Stop: 11/20/21 05:59 Last Infusion: 10/21/21 06:26 Dose: 0 mls/hr, 0 mls/hr Documented by: [id number] Admin: 10/21/21 06:11 Dose: 420 mls/hr, 420 mls/hr Documented by: [id number] Norepinephrine Bitartrate (Levophed/D5w) 4 mg in 250 mls @ 14.025 mls/hr IV .[id number] [facility]; Protocol Stop: 11/20/21 02:29 Last Titration: 10/21/21 12:39 Dose: 0.09 mcg/kg/min, 25.2 mls/hr Documented by: [id number] Titration: 10/21/21 12:16 Dose: 0.11 mcg/kg/min, 30.9 mls/hr Documented by: [id number] Admin: 10/21/21 09:52 Dose: 0.13 mcg/kg/min, 36.5 mls/hr Documented by: [id number] Cosigned by: [id number] Titration: 10/21/21 09:52 Dose: 0.13 mcg/kg/min, 36.5 mls/hr Documented by: [id number] Cosigned by: [id number] Titration: 10/21/21 07:04 Dose: 0.13 mcg/kg/min, 36.5 mls/hr Documented by: [id number] Cosigned by: [id number] Titration: 10/21/21 04:02 Dose: 0.13 mcg/kg/min, 36.5 mls/hr Documented by: [id number] Titration: 10/21/21 03:29 Dose: 0.11 mcg/kg/min, 30.9 mls/hr Documented by: [id number] Titration: 10/21/21 03:10 Dose: 0.09 mcg/kg/min, 25.2 mls/hr Documented by: [id number] Titration: 10/21/21 02:55 Dose: 0.07 mcg/kg/min, 19.6 mls/hr Documented by: [id number] Admin: 10/21/21 02:40 Dose: 0.05 mcg/kg/min, 14 mls/hr Documented by: [id number] Cosigned by: [id number] Parenteral Electrolytes (Plasma-Lyte A) 1,000 mls @ 125 mls/hr IV .Q8H [facility] Stop: 11/20/21 05:44 Last Admin: 10/21/21 06:19 Dose: 125 mls/hr Documented by: [id number] Vancomycin HCl 750 mg/ Sodium (Chloride) 265 mls @ 200 mls/hr IV NOW ONE Stop: 10/21/21 14:04 Last Admin: 10/21/21 13:03 Dose: 200 mls/hr Documented by: [id number] Lactobacillus Acidophilus (Advanced Probiotic 1250 Mg Capsule) 2 cap PO QAM [facility] Stop: 11/20/21 08:59 Last Admin: 10/21/21 09:29 Dose: Not Given Documented by: [id number] Miscellaneous (Revefenacin [Yupelri]: Order Awaiting Action) 1 ea N/A QS [facility] Stop: 11/20/21 07:59 Last Admin: 10/21/21 09:28 Dose: Not Given Documented by: [id number] Multivitamins (Multivitamin Tab) 1 tab PO QAM [facility] Stop: 11/20/21 08:59 Last Admin: 10/21/21 09:29 Dose: Not Given Documented by: [id number] Potassium Phosphate (Pot Phosphate Monobasic W/ Sod Tab) 1 tab PO QID [facility] Stop: 11/20/21 08:59 Last Admin: 10/21/21 09:30 Dose: Not Given Documented by: [id number] Ropinirole HCl (Ropinirole Hcl 0.25 Mg Tablet) 0.5 mg PO QID [facility] Stop: 11/20/21 08:59 Last Admin: 10/21/21 09:30 Dose: Not Given Documented by: [id number] Discontinued Medications Sodium Chloride (Nss) 500 mls @ 999 mls/hr IV .Q31M [facility] Stop: 10/20/21 20:45 Last Infusion: 10/20/21 22:17 Dose: 0 mls/hr Documented by: [id number] Admin: 10/20/21 20:39 Dose: 999 mls/hr Documented by: [id number] Pantoprazole Sodium (Protonix Bolus/Drip) 0 mls @ 1 mls/hr IV ONE ST[facility] Stop: 10/20/21 20:15 Last Admin: 10/20/21 21:55 Dose: Not Given Documented by: [id number] Pantoprazole Sodium 40 mg/ (Dextrose) 100 mls @ 20 mls/hr IV Q5H [facility] Stop: 11/19/21 20:29 Last Infusion: 10/21/21 13:21 Dose: 8 mg/hr, 20 mls/hr Documented by: [id number] Admin: 10/21/21 11:06 Dose: 8 mg/hr, 20 mls/hr Documented by: [id number] Infusion: 10/21/21 11:06 Dose: 8 mg/hr, 20 mls/hr Documented by: [id number] Admin: 10/21/21 06:12 Dose: 8 mg/hr, 20 mls/hr Documented by: [id number] Infusion: 10/21/21 06:12 Dose: 8 mg/hr, 20 mls/hr Documented by: [id number] Admin: 10/21/21 01:31 Dose: 8 mg/hr, 20 mls/hr Documented by: [id number] Infusion: 10/21/21 01:31 Dose: 8 mg/hr, 20 mls/hr Documented by: [id number] Admin: 10/20/21 20:59 Dose: 8 mg/hr, 20 mls/hr Documented by: [id number] Pantoprazole Sodium 80 mg/ (Dextrose) 120 mls @ 400 mls/hr IV NOW ONE Stop: 10/20/21 20:31 Last Infusion: 10/20/21 20:57 Dose: 0 mls/hr Documented by: [id number] Admin: 10/20/21 20:38 Dose: 400 mls/hr Documented by: [id number] Piperacillin Sod/Tazobactam Sod (Zosyn) 4.5 gm in 120 mls @ 240 mls/hr IV NOW ONE Stop: 10/20/21 21:46 Last Infusion: 10/20/21 22:57 Dose: 0 mls/hr Documented by: [id number] Admin: 10/20/21 21:56 Dose: 240 mls/hr Documented by: [id number] Sodium Chloride (Nss 1000ml) 500 mls @ 999 mls/hr IV .Q31M ONE Stop: 10/20/21 22:18 Last Infusion: 10/20/21 22:57 Dose: 0 mls/hr Documented by: [id number] Admin: 10/20/21 21:55 Dose: 999 mls/hr Documented by: [id number] Acetaminophen (Ofirmev) 1,000 mg in 100 mls @ 400 mls/hr IV NOW STA Stop: 10/20/21 23:27 Last Infusion: 10/21/21 00:15 Dose: 0 mls/hr Documented by: [id number] Admin: 10/21/21 00:00 Dose: 400 mls/hr Documented by: [id number] Sodium Chloride (Nss 1000ml) 1,000 mls @ 999 mls/hr IV .Q1H1M EMORY Stop: 10/21/21 02:00 Last Infusion: 10/21/21 02:15 Dose: 0 mls/hr Documented by: [id number] Admin: 10/21/21 01:05 Dose: 999 mls/hr Documented by: [id number] Vancomycin HCl 1,500 mg/ (Sodium Chloride) 530 mls @ 200 mls/hr IV NOW STA; Protocol Stop: 10/21/21 03:46 Last Infusion: 10/21/21 04:10 Dose: 0 mls/hr Documented by: [id number] Admin: 10/21/21 01:31 Dose: 200 mls/hr Documented by: [id number] Sodium Chloride (Nss 1000ml) 1,000 mls @ 125 mls/hr IV .Q8H EMORY Stop: 11/20/21 02:17 Last Infusion: 10/21/21 05:48 Dose: 0 mls/hr, 0 mls/hr Documented by: [id number] Admin: 10/21/21 03:09 Dose: 125 mls/hr, 125 mls/hr Documented by: [id number] Sodium Chloride (Nss) 500 mls @ 500 mls/hr IV .Q1H EMORY Stop: 10/21/21 03:29 Last Infusion: 10/21/21 03:36 Dose: 0 mls/hr Documented by: [id number] Admin: 10/21/21 02:36 Dose: 500 mls/hr Documented by: [id number] Potassium Acetate (Potassium Acetate/Nss) 10 meq in 105 mls @ 105 mls/hr IV Q1H EMORY Stop: 10/21/21 07:37 Last Infusion: 10/21/21 09:34 Dose: 0 mls/hr Documented by: [id number] Admin: 10/21/21 07:10 Dose: 105 mls/hr Documented by: [id number] Infusion: 10/21/21 07:10 Dose: 105 mls/hr Documented by: [id number] Admin: 10/21/21 06:13 Dose: 105 mls/hr Documented by: [id number] Magnesium Sulfate/Dextrose (Magnesium Sulfate / D5w) 1 gm in 100 mls @ 50 mls/hr IV Q2H EMORY Stop: 10/21/21 09:44 Last Infusion: 10/21/21 09:32 Dose: 0 mls/hr Documented by: [id number] Admin: 10/21/21 06:16 Dose: 50 mls/hr Documented by: [id number] Infusion: 10/21/21 06:16 Dose: 50 mls/hr Documented by: [id number] Admin: 10/21/21 06:13 Dose: 50 mls/hr Documented by: [id number] Parenteral Electrolytes (Plasma-Lyte A) 500 mls @ 999 mls/hr IV .Q31M ONE Stop: 10/21/21 06:11 Last Infusion: 10/21/21 06:19 Dose: 0 mls/hr Documented by: [id number] Admin: 10/21/21 05:48 Dose: 999 mls/hr Documented by: [id number] Imaging Data Radiologist's Impression: Chest X-Ray 10/20/21 21:17 XR chest 1V portable CLINICAL HISTORY: elevated WBC, vomiting TECHNIQUE: Single frontal radiograph of the chest was obtained. Comparison: Comparison is made to chest radiograph 04/10/2021 FINDINGS: No lines and tubes are seen. Calcified aortic knob is seen. Left retrocardiac opacity is seen, more pronounced on the prior exam. No evidence of pleural effusion or pneumothorax. IMPRESSION: Left retrocardiac opacity may represent atelectasis, pneumonia, and/or aspiration. ACT 112: Negative or not required by law. Electronically signed by: Rustam Aguilar M.D. 10/20/2021 10:14 PM Discharge Plan Visit Data Chief Complaint: Vomiting Stated Complaint: vomiting/weakness ED Provider: Tyrel Wall Discharge Problem: Acute hypoxemic respiratory failure, KAITY (acute kidney injury), Acute dehydration, Sepsis Patient Disposition: Admitted As Inpatient Discharge Instructions Interventions: ED Discharge Assessment Last Done: 10/21/21 01:44
[2021-10-20] MEDS ORDERED: PANTOPRAZOLE BOLUS/DRIP 1 EA IV STA (20:14)
[2021-10-20] MEDS ORDERED: PANTOprazole 80 MG in DEXTROSE 5% 100 ML IV ONE (20:14)
[2021-10-20] MEDS ORDERED: SODIUM CHLORIDE 0.9% 500 ML IV SCH (20:15)
[2021-10-20 20:48] LABS: Hematocrit (blood only) 43.3 % (42-52); Mean Corpuscular Hgb Conc 34.6 g/dL (32-36); Mean Corpuscular Volume 95.4 fL (80-100); Platelet Count 165 K/uL (130-400); RDW Standard Deviation 49.1 fL (36.4-46.3); Red Blood Count 4.54 M/uL (4.7-6.1); White Blood Count 25.34 K/uL (4.8-10.8)
[2021-10-20] MEDS: PANTOprazole 40 MG in DEXTROSE 5% 100 ML IV SCH (20:59)
[2021-10-20 21:03] LABS: INR 1.2 (0.9-1.1); Partial Thromboplastin Ratio 1.2; Partial Thromboplastin Time 31.9 Seconds (21.0-31.0)
[2021-10-20 21:16] LABS: Basophils # (auto) 0.01 K/uL (0-0.2); Echinocytes 1+; Immature Granulocytes # (auto) 0.09 K/uL (0.00-0.02); Immature Granulocytes % (auto) 0.4 %; Lymphocytes # (auto) 0.47 K/uL (1.2-3.4); Lymphocytes % (auto) 1.9 %; Monocytes # (auto) 0.84 K/uL (0.11-0.59); Monocytes % (auto) 3.3 %; Neutrophils # (auto) 23.93 K/uL (1.4-6.5); Neutrophils % (auto) 94.4 %
[2021-10-20] MEDS ORDERED: PIPERACILLIN/TAZOBACTAM 4.5 GM/120 ML BAG IV ONE (21:17)
[2021-10-20 21:22] LABS: Est GFR (African American) 32.5 ml/min; Potassium 4.2 mmol/L (3.5-5.1)
[2021-10-20 21:23] LABS: Albumin Globulin Ratio 1.4 (0.9-2); Albumin Level 3.9 gm/dl (3.4-5.0); BUN Creatinine Ratio 17.4 (10-20); Bilirubin,Total 1.3 mg/dl (0.2-1.0); Calcium 9.4 mg/dl (8.5-10.1); Creatinine Clr Calc Pharmacy 31.1 ml/min; Globulin 2.8 gm/dl (2.5-4.0); Total Protein 6.7 gm/dl (6.0-8.3); Troponin I High Sensitivity 94.5 pg/ml (0-20)
[2021-10-20] MEDS ORDERED: SODIUM CHLORIDE 0.9% 1000ML 500 ML IV ONE (21:48)
[2021-10-20 22:02] LABS: Appearance Urine Turbid (Clear); Bacteria Urine Automated 4+ (Negative); Bilirubin Urine Negative (Negative); Blood Urine 3+ (Negative); Color Urine Dark Yellow; Glucose Urine UA Negative (Negative); Ketones Urine Negative (Negative); Leukocyte Esterase Urine 3+ (Negative); Nitrite Urine Negative (Negative); Protein Urine 2+ (Negative); RBC Urine Automated 0-4 /hpf (0-4); Specific Gravity Urine 1.019 (1.000-1.030); Urobilinogen Urine Negative (Negative); WBC Urine Automated >30 /hpf (0-5)
--- NOTE | 2021-10-20 22:15 | XRay Report ---
XR chest 1V portable CLINICAL HISTORY: elevated WBC, vomiting TECHNIQUE: Single frontal radiograph of the chest was obtained. Comparison: Comparison is made to chest radiograph 04/10/2021 FINDINGS: No lines and tubes are seen. Calcified aortic knob is seen. Left retrocardiac opacity is seen, more p ronounced on the prior exam. No evidence of pleural effusion or pneumothorax. IMPRESSION: Left retrocardiac opacity may represent atelectasis, pneumonia, and/or aspiration. ACT 112: Negative or not required by law. Electronically signed by: Rustam Aguilar M.D. 10/20/2021 10:14 PM
[2021-10-20] MEDS ORDERED: ACETAMINOPHEN 1,000 MG/100 ML VIAL IV STA (23:13)
[2021-10-21] MEDS ORDERED: VANCOMYCIN CONSULT ACTIVE PRN (00:55)
[2021-10-21] MEDS ORDERED: SODIUM CHLORIDE 0.9% 1000ML 1,000 ML IV SCH ×2 (01:00→02:18)
[2021-10-21] MEDS ORDERED: VANCOMYCIN HCL 1,500 MG in SODIUM CHLORIDE 0.9% 500 ML IV STA (01:08)
[2021-10-21] MEDS: MEROPENEM 500 MG in SYRINGE 0 ML IV SCH ×3 (01:30→16:47)
[2021-10-21] MEDS: PANTOprazole 40 MG in DEXTROSE 5% 100 ML IV SCH ×3 (01:31→11:06)
[2021-10-21] MEDS ORDERED: ICU PROTOCOL FOR HYPERGLYCEMIA PRN (02:18)
[2021-10-21] MEDS ORDERED: LEVALBUTEROL HCL 1.25 MG/3 ML NEB NEB PRN (02:18)
[2021-10-21] MEDS ORDERED: PANTOprazole 40 MG in DEXTROSE 5% 100 ML IV SCH (02:18)
[2021-10-21] MEDS ORDERED: SODIUM CHLORIDE 0.9% 500 ML IV SCH (02:30)
[2021-10-21] MEDS ORDERED: STAT IV Infusion **Titration per Protocol STA (02:30)
[2021-10-21] MEDS: NOREPINEPHRINE/D5W 4 MG/250 ML PLCT IV SCH ×3 (02:40→21:26)
[2021-10-21 05:07] LABS: Albumin Level 2.7 gm/dl (3.4-5.0); BUN Creatinine Ratio 17.1 (10-20); Bilirubin Direct 0.6 mg/dl (0-0.2); Bilirubin,Total 1.6 mg/dl (0.2-1.0); Calcium 7.3 mg/dl (8.5-10.1); Creatinine Clr Calc Pharmacy 26.4 ml/min; Magnesium 1.2 mg/dl (1.7-2.4); Phosphorus 2.7 mg/dl (2.5-4.9); Potassium 2.8 mmol/L (3.5-5.1); Total Protein 4.5 gm/dl (6.0-8.3)
--- NOTE | 2021-10-21 05:14 | History and Physical Report ---
DATE OF ADMISSION: 10/21/2021. CHIEF COMPLAINT: Fever, sepsis. HISTORY: This is a 71-year-old male with past medical history significant for hyperlipidemia, COPD, history of masses in upper lobe of left lung, history of CVA, left hemiplegia mostly bedbound, history of dysarthria on mechanical soft diet and nectar thick liquids as per the correction, history of atrial fibrillation, history of systolic CHF, history of pulmonary embolism, depression, pulmonary hypertension, hypertension, protein calorie malnutrition, history of GI bleed, history of tubular adenoma of small intestine, diverticulosis, BPH, kidney stones, osteoporosis, contraction of the muscle of the left lower extremity, partial complex seizures, CAD status post stent placement, history of tobacco abuse, currently at [facility], mostly bedbound, comes because the patient was vomiting since yesterday several episodes. His abdominal x-ray showed ileus. As he was not getting better, he was not feeling good, he was transferred to the hospital. He was hypoxic. Initially he was only 85%, he was placed on high-flow oxygen. Currently, saturating okay. Initial blood pressure was soft, but later SBP was 75, spiking temperature to 38. White count is 25, creatinine is 2.2. Urinalysis, +4 bacteria. Occult blood is positive. Rapid COVID test negative. Chest x-ray, possible aspiration pneumonitis, question of coffee ground emesis as per the ER and started on Protonix drip but as per the correction the vomitus was brown but his Hemoccult was positive in the ER. Hemoglobin was stable. The patient is not answering much questions. As per the correction generally he is oriented. Recently, no other complaints as per correction, could not get much history. The patient is DNR. Discussed with the , patient confirms that the patient is a DNR, but she is okay with pressors. ALLERGIES: No known drug allergies. MEDICAL HISTORY: As mentioned above. PAST SURGICAL HISTORY: Cardiac stent placement, colonoscopy, cystoscopy, EGD. MEDICATIONS: The patient is on Tylenol 650 mg p.o. q. 4 hours p.r.n., amiodarone 200 mg p.o. a.m., Lipitor 80 mg p.o. daily, Dulcolax 10 mg per rectal daily p.r.n., calcium carbonate 500 mg p.o. b.i.d., vitamin D 25 mcg p.o. a.m., Plavix 75 mg p.o. a.m., Colace 100 mg p.o. daily, Eliquis 5 mg p.o. b.i.d., ferrous sulfate 325 mg p.o. b.i.d., Proscar 5 mg p.o. a.m., fluoxetine 10 mg p.o. a.m., Gabapentin 100 mg p.o. t.i.d., Keppra 500 mg p.o. b.i.d., lisinopril 2.5 mg p.o. a.m., metoprolol tartrate 12.5 mg p.o. a.m., multivitamins 1 tablet p.o. a.m., Zofran 4 mg p.o. q. 6 hours p.r.n., Protonix 40 mg p.o. b.i.d., Neutra-Phos 1 tablet p.o. b.i.d., probiotic 1 tablet p.o. a.m., Revefenacin nebulization daily, Ropinirole 0.5 mg p.o. b.i.d., Flomax 0.4 mg p.o. daily. FAMILY HISTORY: Significant for no family history on file. SOCIAL HISTORY: Currently resident of [facility], former smoker. No alcohol. REVIEW OF SYSTEMS: Unobtainable at this time. PHYSICAL EXAMINATION: GENERAL: The patient is of moderate build, not in acute distress. VITAL SIGNS: Temperature T-max 38, pulse 90, respiratory rate 24, blood pressure 75/33, oxygen 96% on 40 liters of high flow. HEENT: Pupils equal, round and reactive to light. Oral mucosa dry. NECK: No JVD, no neck masses. CARDIOVASCULAR: S1 and S2 heard. Regular rate and rhythm. No murmur, no gallop. RESPIRATORY SYSTEM: Normal AP diameter. No accessory muscle use. No wheezing, no crackles. ABDOMEN: Soft, bowel sounds sluggish. Mildly tender. No distention. CENTRAL NERVOUS SYSTEM: Alert and awake, but not oriented, not obeying simple commands. No facial droop seen. EXTREMITIES: No edema, no erythema. LABORATORY: WBC 25, hemoglobin 15, hematocrit 43.3, platelets 165. PT 13, INR 1.2, APTT 31.9. Sodium 144, potassium 4.2, chloride 107, bicarb 25, BUN 39, creatinine 2.2, serum glucose 114, calcium 9.4, total bilirubin 1.3, AST 24, ALT 24, alkaline phosphatase 103. Troponin I 94. Urinalysis positive for leukocyte esterase and urine bacteria +4. Stool occult blood positive. Rapid COVID test negative. IMAGING: Chest x-ray, left retrocardiac opacity, may represent atelectasis, pneumonia and/or aspiration. EKG: Undetermined rhythm, rate of 98. No acute abnormalities. ASSESSMENT AND PLAN: This is a 71-year-old male presents with nausea, vomiting and found to be in severe sepsis. 1. Severe sepsis Possible secondary to aspiration pneumonia, urinary tract infection. Empirically started on meropenem and vancomycin as the patient has history of ESBL urinary tract infection in the past. IV fluids. Follow the lactic acid. Give 1 liter bolus and IV normal saline 125 mL per hour. Closely monitor in the ICU. The patient is DNR/DNI. Follow the cultures. 2. Acute kidney injury, Cr 2.2 from above. Getting fluids and monitor the labs. 3. Elevated troponin, most likely demand ischemia. Follow serial enzymes. 4. Questionable gastrointestinal bleed, on Protonix drip, which will be continued. Follow H and H. . GI consult when stable. 5. History of chronic obstructive pulmonary disease. Continue home nebulizations and monitor. 6. History of chronic systolic congestive heart failure, EF of 40% to 45%, not on any diuretic. Getting fluids. We will monitor for any volume overload. 7. History of pulmonary embolism, on Eliquis which is held for questionable GI bleed. 8. History of atrial fibrillation. Holding metoprolol and amiodarone for hypotension. Holding Eliquis for GI bleed. We will monitor. 9. Hyperlipidemia, on statin. 10. 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 Holding Plavix now. Restart whenever his GI bleed is resolved. 13. History of benign prostatic hyperplasia, Flomax. 14. History of depression, on fluoxetine. 15. Hypertension, holding lisinopril and metoprolol as patient has sepsis. 16. History of gastroesophageal reflux disease, currently holding p.o. Protonix. Currently on Protonix drip. 17. Restless leg syndrome, on ropinirole. 18. Deep venous thrombosis prophylaxis: Sequential compression devices for now. DISPOSITION: Closely monitor in the ICU. CODE STATUS: DNR/DNI. Job ID: [id number] [email or web address]
[2021-10-21 05:17] LABS: Hematocrit (blood only) 34.7 % (42-52); Hemoglobin 11.5 g/dL (14.0-18.0); Mean Corpuscular Hemoglobin 32.3 pg (25-34); Mean Corpuscular Hgb Conc 33.1 g/dL (32-36); Mean Corpuscular Volume 97.5 fL (80-100); Mean Platelet Volume 11.5 fL (7.4-10.4); Platelet Count 97 K/uL (130-400); RDW Coefficient of Variation 14.1 % (11.5-14.5); RDW Standard Deviation 50.2 fL (36.4-46.3); Red Blood Count 3.56 M/uL (4.7-6.1); White Blood Count 18.03 K/uL (4.8-10.8)
[2021-10-21 05:21] LABS: Basophils # (auto) 0.01 K/uL (0-0.2); Basophils % (auto) 0.1 %; Echinocytes 2+; Immature Granulocytes # (auto) 1.74 K/uL (0.00-0.02); Immature Granulocytes % (auto) 9.7 %; Lymphocytes # (auto) 0.23 K/uL (1.2-3.4); Lymphocytes % (auto) 1.3 %; Monocytes # (auto) 0.41 K/uL (0.11-0.59); Monocytes % (auto) 2.3 %; Neutrophils # (auto) 15.64 K/uL (1.4-6.5); Neutrophils % (auto) 86.6 %; Platelet Estimate Decreased (Normal); Toxic Vacuolation 2+
[2021-10-21] MEDS ORDERED: NORMOSOL-R 500 ML IV ONE (05:41)
--- NOTE | 2021-10-21 05:43 | Critical Care Consultation ---
Date of Consultation October 21, 2021 Assessment & Plan (1) Admitted to intensive care unit: Reason Critically Ill: 71-year-old male presenting with severe sepsis with septic shock in the setting of likely urinary source with possible aspiration pneumonitis as well likely requiring vasopressor support. NEURO - * AMS: * Initially more communicative. * Likely 2/2 severity of illness, metabolic encephalopathy. * Continue to monitor for improvements with correction of underlying conditions. * Consider head/brain imaging if he is not improving with aggressive treatments. * h/o CVA/Seizures: * Continue home Rx pe3r typical when appropriate. CARDIAC/VASCULAR - * Hypotension: * Secondary to sepsis syndrome. * Continue w/ IVF as tolerated. * Add pressors if needed. * Hold antihypertensive Rx for now. * NSTEMI: * Elevated troponin likely 2/2 demand ischemia in the absence of EKG findings or other complaints. * Trend troponin. * A fib/CAD/HTN/HLD: * Hold home Rx for now while critically ill. * Monitor on telemetry. RESPIRATORY - * Hypoxia: * Likely acute on chronic aspiration pneumonitis. * Continue w/ HFNC as tolerated. * Antibiotic coverage. * DO NOT INTUBATE per records. GI/NUTRITION - * ?? episode of Hematemesis: * Heme positive stools. * Protonix gtt for now. * Patient w/ h/o same. * NPO while critically ill and requiring pressors. RENAL/LYTES - * KAITY: * Likely prerenal in the setting of hypotension, dehydration. * IVF: Normosol @ 125mL/hr - * UTI: * Agree w/ imaging given patient's significant h/o bladder stones, recurrent UTIs, etc. * Agree w/ Meropenem given h/o ESBL UTIs and prior culture results. * Campos in place - Strict I&Os. ENDO - * No h/o DM or thyroid Dz * BSGs per unit protocol. ISS --> gtt per unit policy. HEME - * ??GIB * Patient appears hemoconcentrated currently. * Trend H&H ID - * Severe Sepsis w/ septic shock: * Likely urinary source. ??Aspiration pneumonia as possible source as well. * Continue Meropenem given prior cultures (i.e. ESBL UTI) * Lactate 4.9 -> 3.1 * Will check PCT * Blood, urine cultures pending. LINES/IV ACCESS - * PIVs x3 * RUE Endurance catheter. * Campos DVT PROPHYLAXIS - * Eliquis * SCDs I have personally spent 42 minutes of critical care time in the direct management of this patient. This is a life/limb threatening event. This includes time spent evaluating patient, direct bedside care, chart review, placing orders, interpretation of diagnostic studies, discussion with consultants, patient, and family members, as well as other required patient management activities. This time is exclusive of all separately billable procedures, and teaching time and separate from and in addition to any other critical care service time. Thank you for allowing us to participate in the care of this patient. Please refer to my attending physician's documentation for any further recommendations. (2) Severe sepsis: (3) Lactic acidosis: (4) Acute UTI: History of Present Illness Attending Physician: Dong Telles MD History of Present Illness Patient is a 71-year-old male with an extensive past medical history including coronary artery disease, hypertension, COPD, lung nodule, seizures, bladder c alculi, history of CVA with LEFT-sided hemiplegia, CHF, A. fib anticoagulated on Eliquis, history of GI bleeds, etc. Patient presented to the emergency department this evening with persistent nausea and vomiting over the last 24+ hours. Patient noted to have leukocytosis in excess of 25,000. H&H stable. KAITY with creatinine greater than 2. Elevated troponin consistent with demand ischemia. Initially covered empirically with vancomycin and Zosyn. Concerns for possible aspiration pneumonia versus UTI. Patient's blood pressures continue to drop in the emergency department despite IV fluid resuscitation. Patient requiring vasopressors at this point. Upon evaluation in room 202, the patient is somnolent. Patient was more awake per nursing staff upon arrival to the room, but has been sleeping since. He does not contribute to HPI. Allergies Allergy/AdvReac Type Severity Reaction Status Date / Time No Known Allergies Allergy Verified 07/12/21 10:52 Home Medications Medication Instructions Recorded Confirmed Type multivitamin (Daily Multi-Vitamin) 1 tab PO QAM 11/03/18 10/20/21 History acetaminophen 325 mg tablet 650 mg PO Q4H PRN 09/15/20 10/20/21 History (Tylenol) amiodarone 200 mg tablet (Pacerone) 200 mg PO QAM 09/15/20 10/20/21 History apixaban 5 mg tablet (Eliquis) 5 mg PO BID 09/15/20 10/20/21 History atorvastatin 80 mg tablet (Lipitor) 80 mg PO QAM 09/15/20 10/20/21 History cholecalciferol (vitamin D3) 25 25 mcg PO QAM 09/15/20 10/20/21 History mcg (1,000 unit) capsule (Vitamin D3) clopidogrel 75 mg tablet (Plavix) 75 mg PO QAM 09/15/20 10/20/21 History finasteride 5 mg tablet (Proscar) 5 mg PO QAM 09/15/20 10/20/21 History gabapentin 100 mg capsule 100 mg PO TID 09/15/20 10/20/21 History (Neurontin) metoprolol tartrate 25 mg tablet 12.5 mg PO QAM 09/15/20 10/20/21 History ropinirole 0.5 mg tablet 0.5 mg PO QID 09/15/20 10/20/21 History tamsulosin 0.4 mg capsule (Flomax) 0.4 mg PO QDD 09/15/20 10/20/21 History calcium carbonate 200 mg calcium 500 mg PO BID 11/28/20 10/20/21 History (500 mg) chewable tablet (Calcium Antacid) pantoprazole 40 mg tablet,delayed 40 mg PO BID #60 tab 12/10/20 10/20/21 Rx release ferrous sulfate 325 mg (65 mg 325 mg PO BID 03/01/21 10/20/21 History iron) tablet lisinopril 2.5 mg tablet 2.5 mg PO QAM 03/01/21 10/20/21 History sodium di- and 1 tab PO QID 03/01/21 10/20/21 History monophosphate-potassium phos monobasic 250 mg tablet (Phospha 250 Neutral) fluoxetine 10 mg capsule 10 mg PO QAM 04/09/21 10/20/21 History levetiracetam 500 mg tablet 500 mg PO BID #60 tab 04/12/21 10/20/21 Rx (Keppra) Lactobacillus acidophilus 10 10,000 mmu cells PO QAM 05/29/21 10/20/21 History billion cell capsule (Probiotic) bisacodyl 10 mg rectal suppository 10 mg DC DAILY PRN 06/07/21 10/20/21 History (Dulcolax (bisacodyl)) docusate sodium 100 mg capsule 100 mg PO QAM 06/07/21 10/20/21 History (Colace) revefenacin 175 mcg/3 mL solution 175 mcg INHALATION DAILY #90 ml 07/12/21 0 10/20/21 Rx for nebulization (Yupelri) ondansetron 4 mg disintegrating 4 mg PO Q6H PRN 10/20/21 10/20/21 History tablet Patient History Medical History Acquired renal cyst of left kidney Aspiration into lower respiratory tract Atherosclerotic heart disease of redding coronary artery without angina pectoris Benign prostatic hyperplasia with urinary obstruction Bladder calculi BPH (benign prostatic hypertrophy) Cerebral infarction, unspecified Chronic anticoagulation COPD (chronic obstructive pulmonary disease) 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) Dysarthria and anarthria Dysphagia Essential (primary) hypertension GIB (gastrointestinal bleeding) Hematuria Hemiplegia and 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- dominant side Hypercholesterolemia Hypoxia Inflammatory disorders of scrotum Mood disorder On home oxygen therapy 3L N/C at all times Osteoporosis Other obstructive and reflux uropathy Other pulmonary embolism without acute cor pulmonale Pressure ulcer Rectal bleeding Renal calculi Restless leg syndrome ST elevation myocardial infarction (STEMI) Unspecified atrial fibrillation Unspecified systolic (congestive) heart failure UTI (urinary tract infection) Surgical History History of hernia repair S/P drug eluting coronary stent placement (~12/03/19) S/P PTCA (percutaneous transluminal coronary angioplasty) Family History Denies family history of Ovarian cancer Prostate cancer Myocardial infarction Breast cancer Colorectal cancer Social History Smoking Status: Unknown if ever smoked Tobacco Type: Cigarettes and Cigars Second Hand Exposure: No; Hx Substance Use: No Preferred Language: Lao Communication Ability: Effective Electronics Recycler Required: No Beliefs That Will Affect Care: None marital status: Current Living Situation: Correction Current Living Situation Comment: [facility] (for rehab per patient) current occupational status: employed and retired current occupation: [employer] Feels Safe at Home: Yes Dental Care, Regularly: No Physical Activity Frequency: Does not Exercise Assistive Devices: None Review of Systems Review of Systems: Unobtainable due to cognitive status and Unobtainable due to reduced consciousness Physical Exam Physical Exam: VITAL SIGNS - Vital signs and nursing notes were reviewed. GENERAL - 71-year-old male appearing his stated age who is in no acute distress. Somnolent SKIN - Without rashes. HEAD - NC/AT. EYES - PERRL with EOMI bilaterally. Sclera anicteric. EARS - No deformities of external structures noted on gross examination bilaterally. NOSE - Midline and without cyanosis. MOUTH/OROPHARYNX - Without perioral cyanosis. Buccal mucosa pink and dry. NECK - Neck with FROM. Supple to palpation. No lymphadenopathy noted. No nuchal rigidity. LUNGS - Chest wall symmetric without accessory muscle use, intercostals retractions, or central cyanosis. Coarse breath sounds noted. CARDIAC - RRR with S1/S2. No murmur, rubs, or gallops appreciated. ABDOMEN - Abdominal contour flat without pulsations or visible masses. BS normoactive all four quadrants. No tenderness, palpable masses, hepatosplenomegaly, or ascites noted. EXTREMITIES - No clubbing or peripheral cyanosis. No pretibial edema present. +3/5 radial pulses palpated throughout. LUE/LLE hemiplegia. NEUROLOGIC - chronic LEFT sided deficits. somnolent. withdraws to painful stimuli. Results & Data Results & Data ([facility]) Vital Signs (Past 12 Hours) Vital Signs Temp Pulse Pulse Resp BP BP Pulse Ox 10/21/21 03:55 93 H 24 97 10/21/21 03:00 89 78/43 L 98 10/21/21 02:57 89 75/42 L 98 10/21/21 02:53 88 73/39 L 97 10/21/21 02:50 87 68/40 L 96 10/21/21 02:45 87 63/37 L 95 10/21/21 02:40 87 94 10/21/21 02:38 37.9 C H 10/21/21 02:32 36.7 C 86 20 64/34 L 95 10/21/21 02:30 86 64/34 L 95 10/21/21 02:27 87 66/36 L 96 10/21/21 02:25 88 95 10/21/21 02:20 88 95 10/21/21 02:18 84 10/21/21 02:15 89 69/34 L 95 10/21/21 02:14 86 24 94 10/21/21 01:39 92 H 20 79/45 L 97 10/21/21 01:07 90 24 75/33 L 96 10/21/21 00:42 38.0 C H 99 H 18 75/32 L 93 10/21/21 00:10 94 H 24 94 10/20/21 23:33 102 H 25 H 103/46 L 92 10/20/21 23:01 116 H 32 H 148/68 H 92 10/20/21 23:00 115 H 34 H 91 10/20/21 22:31 97 H 20 111/40 L 90 10/20/21 22:30 96 H 23 85 L 10/20/21 22:02 96 H 28 H 92 10/20/21 22:00 93 H 25 H 92/58 L 88 L 10/20/21 21:31 98 H 30 H 107/48 L 92 10/20/21 21:30 97 H 25 H 90 10/20/21 21:00 115 H 36 H 163/69 H 92 10/20/21 20:55 92 10/20/21 20:30 116 H 17 131/102 H 10/20/21 20:00 83 23 102/53 L 92 10/20/21 19:58 37 C 84 20 102/53 L 93 10/20/21 19:56 37 C 84 20 102/53 L 92 Coding Level of Care Code Critical Care 1st 30-74 mins Diagnoses Admitted to intensive care unit Z78.9 Severe sepsis A41.9; R65.20 Lactic acidosis E87.2 Acute UTI N39.0 Time Spent (min) 42
[2021-10-21] MEDS: levETIRAcetam 500 MG in 0.9 % SODIUM CHLORIDE 100 ML IV SCH ×2 (06:11→17:25)
[2021-10-21] MEDS: POTASSIUM ACETATE/NSS 10 MEQ/105 ML BAG IV SCH ×2 (06:13→07:10)
[2021-10-21] MEDS: MAGNESIUM SULFATE / D5W 1 GM/100 ML BAG IV SCH ×2 (06:13→06:16)
[2021-10-21] MEDS: NORMOSOL-R 1,000 ML IV SCH ×2 (06:19→18:17)
--- NOTE | 2021-10-21 07:52 | Gastrointestinal Consultation ---
Date of Consultation October 21, 2021 Assessment & Plan (1) Severe sepsis: 71 yo male with multiple medical problems including history of CVA with left hemiplegia/weakness, CAD, CHF, h/o PE admitted with severe sepsis secondary to E coli bacteremia and UTI. Vomiting prior to admission noted. There was concern because someone hemoccult tested it and it was positive. He does not have a gross GI bleed. Would treat his severe sepsis. IV PPI BID is adequate. Treatment of E coli bacteremia, KAITY, sepsis per primary service. critical care is involved. History of Present Illness Reason for Consultation: "vomiting" Attending Physician: Dong Telles MD History of Present Illness 71 yo male with multiple comorbidities including COPD, lung masses, CVA with left hemiplegia and very limited [facility] CHF, AF, h/o PE, pulmonary HTN, CAD admitted with severe sepsis and found to have E coli bacteremia with urinary source. We are asked to see him for vomiting prior to admission. On abx, required pressors at one point, also on high flow O2 and thought to have superimposed aspiration pneumonia. No vomiting since admission. Lactate 3.1, KAITY with creatinine of 2.5, WBC 18,000 and electrolyte derangements. Allergies Allergy/AdvReac Type Severity Reaction Status Date / Time No Known Allergies Allergy Verified 07/12/21 10:52 Home Medications Medication Instructions Recorded Confirmed Type multivitamin (Daily Multi-Vitamin) 1 tab PO QAM 11/03/18 10/20/21 History acetaminophen 325 mg tablet 650 mg PO Q4H PRN 09/15/20 10/20/21 History (Tylenol) amiodarone 200 mg tablet (Pacerone) 200 mg PO QAM 09/15/20 10/20/21 History apixaban 5 mg tablet (Eliquis) 5 mg PO BID 09/15/20 10/20/21 History atorvastatin 80 mg tablet (Lipitor) 80 mg PO QAM 09/15/20 10/20/21 History cholecalciferol (vitamin D3) 25 25 mcg PO QAM 09/15/20 10/20/21 History mcg (1,000 unit) capsule (Vitamin D3) clopidogrel 75 mg tablet (Plavix) 75 mg PO QAM 09/15/20 10/20/21 History finasteride 5 mg tablet (Proscar) 5 mg PO QAM 09/15/20 10/20/21 History gabapentin 100 mg capsule 100 mg PO TID 09/15/20 10/20/21 History (Neurontin) metoprolol tartrate 25 mg tablet 12.5 mg PO QAM 09/15/20 10/20/21 History ropinirole 0.5 mg tablet 0.5 mg PO QID 09/15/20 10/20/21 History tamsulosin 0.4 mg capsule (Flomax) 0.4 mg PO QDD 09/15/20 10/20/21 History calcium carbonate 200 mg calcium 500 mg PO BID 11/28/20 10/20/21 History (500 mg) chewable tablet (Calcium Antacid) pantoprazole 40 mg tablet,delayed 40 mg PO BID #60 tab 12/10/20 10/20/21 Rx release ferrous sulfate 325 mg (65 mg 325 mg PO BID 03/01/21 10/20/21 History iron) tablet lisinopril 2.5 mg tablet 2.5 mg PO QAM 03/01/21 10/20/21 History sodium di- and 1 tab PO QID 03/01/21 10/20/21 History monophosphate-potassium phos monobasic 250 mg tablet (Phospha 250 Neutral) fluoxetine 10 mg capsule 10 mg PO QAM 04/09/21 10/20/21 History levetiracetam 500 mg tablet 500 mg PO BID #60 tab 04/12/21 10/20/21 Rx (Keppra) Lactobacillus acidophilus 10 10,000 mmu cells PO QAM 05/29/21 10/20/21 History billion cell capsule (Probiotic) bisacodyl 10 mg rectal suppository 10 mg [place] DAILY PRN 06/07/21 10/20/21 History (Dulcolax (bisacodyl)) docusate sodium 100 mg capsule 100 mg PO QAM 06/07/21 10/20/21 History (Colace) revefenacin 175 mcg/3 mL solution 175 mcg INHALATION DAILY #90 ml 07/12/21 10/20/21 Rx for nebulization (Yupelri) ondansetron 4 mg disintegrating 4 mg PO Q6H PRN 10/20/21 10/20/21 History tablet Patient History Medical History Acquired renal cyst of left kidney Aspiration into lower respiratory tract Atherosclerotic heart disease of [place] coronary artery without angina pectoris Benign prostatic hyperplasia with urinary obstruction Bladder calculi BPH (benign prostatic hypertrophy) Cerebral infarction, unspecified Chronic anticoagulation COPD (chronic obstructive pulmonary disease) 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) Dysarthria and anarthria Dysphagia Essential (primary) hypertension GIB (gastrointestinal bleeding) Hematuria Hemiplegia and 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- dominant side Hypercholesterolemia Hypoxia Inflammatory disorders of scrotum Mood disorder On home oxygen therapy 3L N/C at all times Osteoporosis Other obstructive and reflux uropathy Other pulmonary embolism without acute cor pulmonale Pressure ulcer Rectal bleeding Renal calculi Restless leg syndrome ST elevation myocardial infarction (STEMI) Unspecified atrial fibrillation Unspecified systolic (congestive) heart failure UTI (urinary tract infection) Surgical History History of hernia repair S/P drug eluting coronary stent placement (~12/03/19) S/P PTCA (percutaneous transluminal coronary angioplasty) Family History Denies family history of Ovarian cancer Prostate cancer Myocardial infarction Breast cancer Colorectal cancer Social History Smoking Status: Unknown if ever smoked Tobacco Type: Cigarettes and Cigars Second Hand Exposure: No; Hx Substance Use: No Preferred Language: Irish Communication Ability: Effective 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 Beliefs That Will Affect Care: None marital status: Current Living Situation: Retirement Current Living Situation Comment: [facility] (for rehab per patient) current occupational status: employed and retired current occupation: [employer] Feels Safe at Home: Yes Dental Care, Regularly: No Physical Activity Frequency: Does not Exercise Assistive Devices: None Review of Systems Review of Systems: All systems reviewed & are unremarkable except as noted in HPI & below Physical Exam Constitutional: + ill appearing and + lethargic Respiratory: Auscultation: + diminished lung sounds Cardiovascular: Rate/Rhythm: regular rate Gastrointestinal (Abdomen): normal bowel sounds, soft, nontender, no hepatosplenomegaly Results & Data ([facility]) Vital Signs (Past 12 Hours) Vital Signs Temp Pulse Pulse Resp BP BP Pulse Ox 10/21/21 07:23 83 20 94 10/21/21 06:30 86 98/56 L 95 10/21/21 06:15 86 97/57 L 98 10/21/21 06:00 87 96/55 L 100 10/21/21 05:45 85 93/52 L 99 10/21/21 05:30 85 86/48 L 98 10/21/21 05:15 87 100/51 L 97 10/21/21 05:00 91 H 92/51 L 97 10/21/21 04:45 91 H 95/47 L 98 10/21/21 04:30 91 H 92/48 L 98 10/21/21 04:17 90 90/47 L 98 10/21/21 04:15 92 H 88/46 L 97 10/21/21 04:00 36.3 C L 92 H 81/46 L 96 10/21/21 03:55 93 H 24 97 10/21/21 03:54 93 H 83/43 L 96 10/21/21 03:45 93 H 85/45 L 97 10/21/21 03:30 90 81/44 L 98 10/21/21 03:29 90 80/43 L 98 10/21/21 03:28 90 85/43 L 98 10/21/21 03:15 89 83/44 L 98 10/21/21 03:00 89 78/43 L 98 10/21/21 02:57 89 75/42 L 98 10/21/21 02:53 88 73/39 L 97 10/21/21 02:50 87 68/40 L 96 10/21/21 02:45 87 63/37 L 95 10/21/21 02:40 87 94 10/21/21 02:38 37.9 C H 10/21/21 02:32 36.7 C 86 20 64/34 L 95 10/21/21 02:30 86 64/34 L 95 10/21/21 02:27 87 66/36 L 96 10/21/21 02:25 88 95 10/21/21 02:20 88 95 10/21/21 02:18 84 10/21/21 02:15 89 69/34 L 95 10/21/21 02:14 86 24 94 10/21/21 01:39 92 H 20 79/45 L 97 10/21/21 01:07 90 24 75/33 L 96 10/21/21 00:42 38.0 C H 99 H 18 75/32 L 93 10/21/21 00:10 94 H 24 94 10/20/21 23:33 102 H 25 H 103/46 L 92 10/20/21 23:01 116 H 32 H 148/68 H 92 10/20/21 23:00 115 H 34 H 91 10/20/21 22:31 97 H 20 111/40 L 90 10/20/21 22:30 96 H 23 85 L 10/20/21 22:02 96 H 28 H 92 10/20/21 22:00 93 H 25 H 92/58 L 88 L 10/20/21 21:31 98 H 30 H 107/48 L 92 10/20/21 21:30 97 H 25 H 90 10/20/21 21:00 115 H 36 H 163/69 H 92 10/20/21 20:55 92 10/20/21 20:30 116 H 17 131/102 H 10/20/21 20:00 83 23 102/53 L 92 10/20/21 19:58 37 C 84 20 102/53 L 93 10/20/21 19:56 37 C 84 20 102/53 L 92
--- NOTE | 2021-10-21 08:29 | Pulmonary Consultation ---
Date of Consultation October 21, 2021 History of Present Illness Attending Physician: Dong Telles MD Allergies Allergy/AdvReac Type Severity Reaction Status Date / Time No Known Allergies Allergy Verified 07/12/21 10:52 Home Medications Medication Instructions Recorded Confirmed Type multivitamin (Daily Multi-Vitamin) 1 tab PO QAM 11/03/18 10/20/21 History acetaminophen 325 mg tablet 650 mg PO Q4H PRN 09/15/20 10/20/21 History (Tylenol) amiodarone 200 mg tablet (Pacerone) 200 mg PO QAM 09/15/20 10/20/21 History apixaban 5 mg tablet (Eliquis) 5 mg PO BID 09/15/20 10/20/21 History atorvastatin 80 mg tablet (Lipitor) 80 mg PO QAM 09/15/20 10/20/21 History cholecalciferol (vitamin D3) 25 25 mcg PO QAM 09/15/20 10/20/21 History mcg (1,000 unit) capsule (Vitamin D3) clopidogrel 75 mg tablet (Plavix) 75 mg PO QAM 09/15/20 10/20/21 History finasteride 5 mg tablet (Proscar) 5 mg PO QAM 09/15/20 10/20/21 History gabapentin 100 mg capsule 100 mg PO TID 09/15/20 10/20/21 History (Neurontin) metoprolol tartrate 25 mg tablet 12.5 mg PO QAM 09/15/20 10/20/21 History ropinirole 0.5 mg tablet 0.5 mg PO QID 09/15/20 10/20/21 History tamsulosin 0.4 mg capsule (Flomax) 0.4 mg PO QDD 09/15/20 10/20/21 History calcium carbonate 200 mg calcium 500 mg PO BID 11/28/20 10/20/21 History (500 mg) chewable tablet (Calcium Antacid) pantoprazole 40 mg tablet,delayed 40 mg PO BID #60 tab 12/10/20 10/20/21 Rx release ferrous sulfate 325 mg (65 mg 325 mg PO BID 03/01/21 10/20/21 History iron) tablet lisinopril 2.5 mg tablet 2.5 mg PO QAM 03/01/21 10/20/21 History sodium di- and 1 tab PO QID 03/01/21 10/20/21 History monophosphate-potassium phos monobasic 250 mg tablet (Phospha 250 Neutral) fluoxetine 10 mg capsule 10 mg PO QAM 04/09/21 10/20/21 History levetiracetam 500 mg tablet 500 mg PO BID #60 tab 04/12/21 10/20/21 Rx (Keppra) Lactobacillus acidophilus 10 10,000 mmu cells PO QAM 05/29/21 10/20/21 History billion cell capsule (Probiotic) bisacodyl 10 mg rectal suppository 10 mg [place] DAILY PRN 06/07/21 10/20/21 History (Dulcolax (bisacodyl)) docusate sodium 100 mg capsule 100 mg PO QAM 06/07/21 10/20/21 History (Colace) revefenacin 175 mcg/3 mL solution 175 mcg INHALATION DAILY #90 ml 07/12/21 10/20/21 Rx for nebulization (Yupelri) ondansetron 4 mg disintegrating 4 mg PO Q6H PRN 10/20/21 10/20/21 History tablet Patient History Medical History Acquired renal cyst of left kidney Aspiration into lower respiratory tract Atherosclerotic heart disease of [place] coronary artery without angina pectoris Benign prostatic hyperplasia with urinary obstruction Bladder calculi BPH (benign prostatic hypertrophy) Cerebral infarction, unspecified Chronic anticoagulation COPD (chronic obstructive pulmonary disease) 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) Dysarthria and anarthria Dysphagia Essential (primary) hypertension GIB (gastrointestinal bleeding) Hematuria Hemiplegia and 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- dominant side Hypercholesterolemia Hypoxia Inflammatory disorders of scrotum Mood disorder On home oxygen therapy 3L N/C at all times Osteoporosis Other obstructive and reflux uropathy Other pulmonary embolism without acute cor pulmonale Pressure ulcer Rectal bleeding Renal calculi Restless leg syndrome ST elevation myocardial infarction (STEMI) Unspecified atrial fibrillation Unspecified systolic (congestive) heart failure UTI (urinary tract infection) Surgical History History of hernia repair S/P drug eluting coronary stent placement (~12/03/19) S/P PTCA (percutaneous transluminal coronary angioplasty) Family History Denies family history of Ovarian cancer Prostate cancer Myocardial infarction Breast cancer Colorectal cancer Social History Smoking Status: Unknown if ever smoked Tobacco Type: Cigarettes and Cigars Second Hand Exposure: No; Hx Substance Use: No Preferred Language: Turkmen Communication Ability: Effective Superintendent [employer] Required: No Beliefs That Will Affect Care: None marital status: Current Living Situation: Penitentiary Current Living Situation Comment: [facility] (for rehab per patient) current occupational status: employed and retired current occupation: [employer] Feels Safe at Home: Yes Dental Care, Regularly: No Physical Activity Frequency: Does not Exercise Assistive Devices: None Results & Data Results & Data ([facility]) Vital Signs (Past 12 Hours) Vital Signs Temp Pulse Pulse Resp BP BP Pulse Ox 10/21/21 07:23 83 20 94 10/21/21 06:30 86 98/56 L 95 10/21/21 06:15 86 97/57 L 98 10/21/21 06:00 87 96/55 L 100 10/21/21 05:45 85 93/52 L 99 10/21/21 05:30 85 86/48 L 98 10/21/21 05:15 87 100/51 L 97 10/21/21 05:00 91 H 92/51 L 97 10/21/21 04:45 91 H 95/47 L 98 10/21/21 04:30 91 H 92/48 L 98 10/21/21 04:17 90 90/47 L 98 10/21/21 04:15 92 H 88/46 L 97 10/21/21 04:00 36.3 C L 92 H 81/46 L 96 10/21/21 03:55 93 H 24 97 10/21/21 03:54 93 H 83/43 L 96 10/21/21 03:45 93 H 85/45 L 97 10/21/21 03:30 90 81/44 L 98 10/21/21 03:29 90 80/43 L 98 10/21/21 03:28 90 85/43 L 98 10/21/21 03:15 89 83/44 L 98 10/21/21 03:00 89 78/43 L 98 10/21/21 02:57 89 75/42 L 98 10/21/21 02:53 88 73/39 L 97 10/21/21 02:50 87 68/40 L 96 10/21/21 02:45 87 63/37 L 95 10/21/21 02:40 87 94 10/21/21 02:38 37.9 C H 10/21/21 02:32 36.7 C 86 20 64/34 L 95 10/21/21 02:30 86 64/34 L 95 10/21/21 02:27 87 66/36 L 96 10/21/21 02:25 88 95 10/21/21 02:20 88 95 10/21/21 02:18 84 10/21/21 02:15 89 69/34 L 95 10/21/21 02:14 86 24 94 10/21/21 01:39 92 H 20 79/45 L 97 10/21/21 01:07 90 24 75/33 L 96 10/21/21 00:42 38.0 C H 99 H 18 75/32 L 93 10/21/21 00:10 94 H 24 94 10/20/21 23:33 102 H 25 H 103/46 L 92 10/20/21 23:01 116 H 32 H 148/68 H 92 10/20/21 23:00 115 H 34 H 91 10/20/21 22:31 97 H 20 111/40 L 90 10/20/21 22:30 96 H 23 85 L 10/20/21 22:02 96 H 28 H 92 10/20/21 22:00 93 H 25 H 92/58 L 88 L 10/20/21 21:31 98 H 30 H 107/48 L 92 10/20/21 21:30 97 H 25 H 90 10/20/21 21:00 115 H 36 H 163/69 H 92 10/20/21 20:55 92 10/20/21 20:30 116 H 17 131/102 H Critical Care Results & Data Vital Signs (Past 12 Hours) Vital Signs Temp Pulse Pulse Resp BP BP Pulse Ox 10/21/21 07:23 83 20 94 10/21/21 06:30 86 98/56 L 95 10/21/21 06:15 86 97/57 L 98 10/21/21 06:00 87 96/55 L 100 10/21/21 05:45 85 93/52 L 99 10/21/21 05:30 85 86/48 L 98 10/21/21 05:15 87 100/51 L 97 10/21/21 05:00 91 H 92/51 L 97 10/21/21 04:45 91 H 95/47 L 98 10/21/21 04:30 91 H 92/48 L 98 10/21/21 04:17 90 90/47 L 98 10/21/21 04:15 92 H 88/46 L 97 10/21/21 04:00 36.3 C L 92 H 81/46 L 96 10/21/21 03:55 93 H 24 97 10/21/21 03:54 93 H 83/43 L 96 10/21/21 03:45 93 H 85/45 L 97 10/21/21 03:30 90 81/44 L 98 10/21/21 03:29 90 80/43 L 98 10/21/21 03:28 90 85/43 L 98 10/21/21 03:15 89 83/44 L 98 10/21/21 03:00 89 78/43 L 98 10/21/21 02:57 89 75/42 L 98 10/21/21 02:53 88 73/39 L 97 10/21/21 02:50 87 68/40 L 96 10/21/21 02:45 87 63/37 L 95 10/21/21 02:40 87 94 10/21/21 02:38 37.9 C H 10/21/21 02:32 36.7 C 86 20 64/34 L 95 10/21/21 02:30 86 64/34 L 95 10/21/21 02:27 87 66/36 L 96 10/21/21 02:25 88 95 10/21/21 02:20 88 95 10/21/21 02:18 84 10/21/21 02:15 89 69/34 L 95 10/21/21 02:14 86 24 94 10/21/21 01:39 92 H 20 79/45 L 97 10/21/21 01:07 90 24 75/33 L 96 10/21/21 00:42 38.0 C H 99 H 18 75/32 L 93 10/21/21 00:10 94 H 24 94 10/20/21 23:33 102 H 25 H 103/46 L 92 10/20/21 23:01 116 H 32 H 148/68 H 92 10/20/21 23:00 115 H 34 H 91 10/20/21 22:31 97 H 20 111/40 L 90 10/20/21 22:30 96 H 23 85 L 10/20/21 22:02 96 H 28 H 92 10/20/21 22:00 93 H 25 H 92/58 L 88 L 10/20/21 21:31 98 H 30 H 107/48 L 92 10/20/21 21:30 97 H 25 H 90 10/20/21 21:00 115 H 36 H 163/69 H 92 10/20/21 20:55 92 10/20/21 20:30 116 H 17 131/102 H Lab & Micro Results (Past 24 Hours) RBC 3.56 M/uL (4.7-6.1) L 10/21/21 WBC 18.03 K/uL (4.8-10.8) H 10/21/21 Hgb 11.5 g/dL (14.0-18.0) L 10/21/21 Hct 34.7 % (42-52) L 10/21/21 MCV 97.5 fL (80-100) 10/21/21 MCH 32.3 pg (25-34) 10/21/21 MCHC 33.1 g/dL (32-36) 10/21/21 RDW Standard Deviation 50.2 fL (36.4-46.3) H 10/21/21 RDW Coefficient of Variation 14.1 % (11.5-14.5) 10/21/21 Plt Count 97 K/uL (130-400) L 10/21/21 MPV 11.5 fL (7.4-10.4) H 10/21/21 Neutrophils (%) (Auto) 86.6 % 10/21/21 Lymphocytes (%) (Auto) 1.3 % 10/21/21 Monocytes # (Auto) 0.41 K/uL (0.11-0.59) 10/21/21 Eosinophils # (Auto) 0.00 K/uL (0-0.5) 10/21/21 Immature Granulocyte % (Auto) 9.7 % 10/21/21 Neutrophils # (Auto) 15.64 K/uL (1.4-6.5) H 10/21/21 Lymphocytes # (Auto) 0.23 K/uL (1.2-3.4) L 10/21/21 Monocytes # (Auto) 0.41 K/uL (0.11-0.59) 10/21/21 Eosinophils # (Auto) 0.00 K/uL (0-0.5) 10/21/21 Basophils # (Auto) 0.01 K/uL (0-0.2) 10/21/21 Immature Granulocyte # (Auto) 1.74 K/uL (0.00-0.02) H 10/21/21 Echinocytes 2+ 10/21/21 Toxic Vacuolation 2+ 10/21/21 Na 142 mmol/L (136-145) 10/21/21 K 2.8 mmol/L (3.5-5.1) L 10/21/21 Cl 113 mmol/L (98-107) H 10/21/21 CO2 19 mmol/L (21-32) L 10/21/21 Anion Gap 10 (3-11) 10/21/21 BUN 42 mg/dl (6-23) H 10/21/21 Creatinine 2.46 mg/dl (0.6-1.4) H 10/21/21 Estimated GFR ( Amer) 29.0 ml/min 10/21/21 Estimated GFR (Non-Af Amer) 25.0 ml/min 10/21/21 BUN/Creatinine Ratio 17.1 (10-20) 10/21/21 Glu 97 mg/dl (70-99(Fasting)) 10/21/21 Ca 7.3 mg/dl (8.5-10.1) L 10/21/21 Phosphorus Level 2.7 mg/dl (2.5-4.9) 10/21/21 Total Bilirubin 1.6 mg/dl (0.2-1.0) H 10/21/21 Direct Bilirubin 0.6 mg/dl (0-0.2) H 10/21/21 AST 23 U/L (13-39) 10/21/21 ALT 21 U/L (7-52) 10/21/21 Alkaline Phosphatase 77 U/L (34-104) 10/21/21 TP 4.5 gm/dl (6.0-8.3) L 10/21/21 Albumin 2.7 gm/dl (3.4-5.0) L 10/21/21 Globulin 2.8 gm/dl (2.5-4.0) 10/20/21 Albumin/Globulin Ratio 1.4 (0.9-2) 10/20/21 Mg 1.2 mg/dl (1.7-2.4) L 10/21/21 04:29 10/21/21 Calcium Level 7.3 mg/dl (8.5-10.1) L 10/21/21 04:29 10/21/21 Prothromb Time International Ratio 1.2 (0.9-1.1) H 10/20/21 20:29 10/20/21 Microbiology 10/20/21 21:42 Aerobic Blood Culture - Preliminary Blood Gram negative bacilli Anaerobic Blood Culture - Preliminary Gram negative bacilli 10/20/21 21:40 Urine Culture - Preliminary Urine,Clean Catch Gram negative bacilli 10/20/21 21:42 Aerobic Blood Culture - Preliminary Blood Gram negative bacilli Anaerobic Blood Culture - Preliminary Gram negative bacilli Diagnostic Findings (Past 24 Hours) Chest X-Ray 10/20/21 21:17 XR chest 1V portable CLINICAL HISTORY: elevated WBC, vomiting TECHNIQUE: Single frontal radiograph of the chest was obtained. Comparison: Comparison is made to chest radiograph 04/10/2021 FINDINGS: No lines and tubes are seen. Calcified aortic knob is seen. Left retrocardiac opacity is seen, more pronounced on the prior exam. No evidence of pleural effusion or pneumothorax. IMPRESSION: Left retrocardiac opacity may represent atelectasis, pneumonia, and/or aspiration. ACT 112: Negative or not required by law. Electronically signed by: Rustam Aguilar M.D. 10/20/2021 10:14 PM I & O Totals 24 Hours 10/20/21 10/21/21 10/22/21 06:59 06:59 06:59 Intake Total 4526.459 / 4526.459 210.467 / 210.467 Output Total 75 / 75 Balance 4500.459 / 4500.459 135.467 / 135.467 Cumulative 10/20/21 19:46 thru 10/21/21 08:00 Intake Total 4736.926 Output Total 101 Balance 4635.926 RT Ventilator Mngmt (Last Documented) Ventilator Ordered Settings Respiratory Rate 20 10/21/21 07:23 Fraction of Inspired Oxygen 35 10/21/21 08:13 Ventilator - PT Measurements Respiratory Rate 20 PG Care Time/CCT Total # of Minutes Spent Total Time Spent with Patient: Total time spent is greater than 50% in coordination of care (as documented) at patient's floor/unit and/or counseling patient: Coding
--- NOTE | 2021-10-21 08:33 | Communication Note ---
Date of Service: October 21, 2021 Patient seen and examined. EMR reviewed. Images were independently reviewed. Discussed with overnight critical care TANIYA. Discussed with bedside nurse. Patient admitted with severe sepsis/urosepsis and potential pyelonephritis. He remains on pressors. He has been initiated on appropriate antibiotic therapy. History of E BSL E. coli. Continue meropenem. Await urology consultation given hydronephrosis and presence of bladder stones. Cortisol was normal. The patient appears adequately fluid resuscitated. He has a history of pulmonary nodule concerning for malignancy. The nodule is not well identified on the current film and will need continued surveillance. DNR status confirmed. Overall prognosis is guarded given patient's poor functi onal status at baseline. He is essentially wheelchair-bound. Palliative care consultation would be appropriate should the patient's clinical condition fail to improve. Coding Level of Care Code Critical Care ashutosh addt'l 30 min
[2021-10-21] MEDS ORDERED: AMIODARONE 200 MG TAB PO SCH (09:00)
[2021-10-21] MEDS: MULTIVITAMIN TAB PO SCH (09:29)
[2021-10-21] MEDS: AMIODARONE 200 MG TAB PO SCH (09:29)
[2021-10-21] MEDS: FINASTERIDE 5 MG TAB PO SCH (09:29)
[2021-10-21] MEDS: GABAPENTIN 100 MG CAP PO SCH ×3 (09:29→20:04)
[2021-10-21] MEDS: ATORVASTATIN 40 MG TAB PO SCH (09:29)
[2021-10-21] MEDS: ADVANCED PROBIOTIC 1250 MG CAPSULE PO SCH (09:29)
[2021-10-21] MEDS: FLUoxetine HCL 10 MG CAP PO SCH (09:29)
[2021-10-21] MEDS: rOPINIRole HCL 0.25 MG TABLET PO SCH ×4 (09:30→20:04)
[2021-10-21] MEDS: POT PHOSPHATE MONOBASIC W/ SOD TAB PO SCH ×4 (09:30→20:04)
--- NOTE | 2021-10-21 11:48 | CT Scan Report ---
CT abd pelvis wo con CLINICAL HISTORY: Nausea and vomiting COMPARISON STUDY: 04/09/2021 CT DOSE: 1153.35 mGy.cm TECHNIQUE: Standard CT of the Abdomen and Pelvis was performed without IV contrast. The patient did not receive oral contrast. A dose lowering technique was utilized adhering to the principles of [employer]. FINDINGS: Lung base: There is left basilar atelectasis. Mild centrilobular emphysematous changes are present. Abdominal cavity: There is no evidence for abdominal mass, adenopathy or ascites. Small bilateral ing uinal hernias containing peritoneal fat are again seen. Liver: The liver is homogeneous in attenuation on these limited noncontrast images.. Spleen: The spleen is homogeneous in attenuation on these limited noncontrast images. Pancreas: The pancreas is homogeneous in attenuation on these limited noncontrast images. Gall Bladder: The gallbladder is grossly distended. Adrenal glands: The adrenal glands are normal in size and attenuation on these limited noncontrast im ages. Kidneys: There is swelling of the left kidney when compared to the right with hydronephrosis present. There is a nonobstructing renal calculus seen measuring 2 mm. Additionally, there are multiple bladd er calculi present at the floor the bladder on the left. The presence of a partially calcified mass i s suspected. There is no evidence for right renal calculus or hydronephrosis. Bowel: The stomach is distended with liquid and food stuff. There are fluid-filled loops of small bow el throughout the abdomen and pelvis without evidence for disproportionate dilatation or obstruction. Fecal material and fluid are seen within the colon as well. Findings are most characteristic of an i leus versus gastroenteritis. There is no evidence for mass lesion. There are no inflammatory changes present. There is no evidence for free air. Bladder: The bladder is grossly distended with marked thickening of bladder wall. There is again calc ified masslike density in the floor the bladder on the left. Follow-up is recommended. : There is no evidence for pelvic mass or adenopathy. The prostate is moderately enlarged. Vasculature: There is no evidence for focal aneurysmal dilatation of the abdominal aorta. Atheroscler otic calcification is present. Osseous structures: There is no acute osseous pathology. Degenerative changes are seen within the spi ne. IMPRESSION: 1. CT findings most characteristic of an ileus versus gastroenteritis with no evidence for small jaiden l obstruction. 2. Moderate left hydronephrosis with what appears to be a there is a calcified past the floor the linda dder on the left. Follow-up direct visualization is recommended. 3. Distention of the gallbladder. 4. Left basilar atelectasis. 5. Additional nonacute findings are delineated above. ACT 112: Negative or not required by law. Electronically signed by: Davy Delcid M.D. 10/21/2021 11:45 AM
--- NOTE | 2021-10-21 12:25 | Electrocardiogram Report ---
Test Reason : Blood Pressure : / mmHG Vent. Rate : 098 BPM Atrial Rate : 094 BPM P-R Int : 190 ms QRS Dur : 090 ms QT Int : 374 ms P-R-T Axes : 115 023 082 degrees QTc Int : 477 ms Poor data quality, interpretation may be adversely affected Undetermined rhythm Abnormal ECG When compared with ECG of 09-APR-2021 07:50, Current undetermined rhythm precludes rhythm comparison, needs review Confirmed by Jeremy Bazan ([id number]) on 10/21/2021 12:24:47 PM Referred By: REFERRED SELF Confirmed By:Miquel Bazan
--- NOTE | 2021-10-21 12:40 | Communication Note ---
Date of Service: October 21, 2021 Patient was seen and examined at bedside. Chart reviewed. Labs and vitals reviewed. H&P note and consult notes reviewed (please see H&P note for details). Patient admitted earlier today with septic shock due to UTI and possible aspiration PNA. Urine clx showing GNB, blood clx showing GNB in 2/2 cultures- repeat blood culture to ensure clearance- follow up culture results for further antibiotic management. CT chest and A/P reviewed. Remains in ICU being managed by process technician. Remains on levophed, empiric vanc/meropenem pending clx results, IVF. Seen by GI and urology- recommendations noted. WBC improving, electrolytes improving. Trop trend relatively flat and he denies any chest pain- likely demand ischemia in setting of septic shock and KAITY. He remains on HFNC and is DNR/DNI. He remains in ICU status and critically ill. Further management per process technician.
[2021-10-21] MEDS ORDERED: VANCOMYCIN HCL 750 MG in SODIUM CHLORIDE 0.9% 250 ML IV ONE (12:45)
--- NOTE | 2021-10-21 12:58 | Pharmacy Report ---
Pharmacy Vanc AUC Short Note - Date of Service October 21, 2021 - Assessment & Plan Assessment 71 year old M receiving IV vancomycin and meropenem for empiric coverage in the setting of septic shock from likely urinary source vs. potential aspiration. MRSA nasal (+), Blood cultures (+) GNB in 4/4, Urine culture (+) GNB. History of ESBL E. coli. Patient with KAITY (baseline SCr ~ 1); SCr 2.46 and requiring vasopressor support. Day #1 of antimicrobial therapy. Plan Vancomycin * AUC/MANDEEP is the preferred PK/PD target for vancomycin, however given KAITY and minimal UOP, will dose by levels until renal function improves. * S/p vancomycin 1500mg IV X 1 ~0130 this AM. Random level ~ noon was 11.6mcg/mL indicating it is safe to re-dose. * Vanc 750mg (~11mg/kg) IV X 1 now * Random level ordered for tomorrow w/ AM labs to guide further therapy Pharmacy will continue to follow and will adjust dose/frequency as necessary. Thank you.
--- NOTE | 2021-10-21 13:34 | Urology Consultation ---
Date of Consultation October 21, 2021 Assessment & Plan (1) Severe sepsis: (2) Bladder stones: (3) KAITY (acute kidney injury): (4) ST elevation myocardial infarction (STEMI): (5) Admitted to intensive care unit: (6) Bladder outlet obstruction: (7) Hydronephrosis: Patient is acutely ill. Extremely limited exam and history gathering secondary to patient's severe sepsis with altered mental status and somnolence. Patient likely dealing with combination of urinary infection with bladder outlet obstruction and hydronephrosis and bladder stones versus calcified mass within the bladder. Also per records is being treated for an aspiration pneumonia. Patient has severe altered mental status. Is requiring pressors and volume replacement for management of hypotension. He has been able to go down on his pressors over the last few hours. 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 Since 11:00 patient has put out a decent amount of dark yellow urine and is being monitored with critical management and close monitoring of input and output. Patient has been tolerating catheter. Does not appear to have blood in the urine the urine is very dark. Patient is having multiple issues including likely STEMI. Has KAITY on patient's CKD likely due to obstructive issues and poor urine output with multiorgan dysfunction with severe sepsis. Imaging was reviewed interpreted by myself. Patient has severe inflammation and thickening and irritation throughout the system. Has hydronephrosis more prominent on the left. Does appear to have stones within the bladder and has a known history of bladder stone disease. Catheter is in place and urine output has increased. Patient has severe comorbidities at baseline with history of CVA. At this point would recommend continued supportive and critical care for management of severe sepsis as well as continued monitoring of urine output. Continue with hydration and close monitoring. Obstruction seems to be at bladder outlet and no obvious obstruc tion of ureter as patient does have known history of bladder stones. We will continue to monitor and consider stent if necessary if patient's condition worsens or has continued issues. Patient complicated medical and surgical history was all reviewed with a majority of information gathered from medical records and from nursing. Patient has previously followed with Dr. Diane History of Present Illness Attending Physician: Dong Telles MD History of Present Illness Urgent consultation for acutely ill and septic patient with UTI/Pyelo, discomfort, and ill feelings. Patient has severe sepsis requiring volume support and pressors for maintenance of blood pressure. Had limited urine output. Had a catheter placed after imaging. Has a calcified mass versus bladder stone versus other area within the bladder with left-sided hydronephrosis and severe inflammation of the bladder and urinary system. Patient has a history of similar episodes of severe UTI. Has considerable medical conditions with other episodes of severe sepsis and altered mental sta tus. Has significant issues at baseline with severe exacerbation due to the acute illness. Patient was poorly responding to questions. Is still acutely ill being managed in the critical care unit. Patient had worsening issues with increasing confusion. Altered mental status due to acute illness Discussed and reviewed patient's personal medical, surgical, social, and family history for any history of issues, infections, and disease. Majority of information was gathered from medical records due to patient's acute illness. Reviewed patient's medical/surgery history especially related to any history of urinary issues or stone disease. Patient has similar episode nearly a year ago with similar episode and severe illness. Patient is undergoing intense/critical management for acute illness and is being admitted to undergo critical care. Hospitalist/ICU team has admitted and is undergoing observation with broad spectrum IV antibiotics. Allergies Allergy/AdvReac Type Severity Reaction Status Date / Time No Known Allergies Allergy Verified 07/12/21 10:52 Home Medications Medication Instructions Recorded Confirmed Type multivitamin (Daily Multi-Vitamin) 1 tab PO QAM 11/03/18 10/20/21 History acetaminophen 325 mg tablet 650 mg PO Q4H PRN 09/15/20 10/20/21 History (Tylenol) amiodarone 200 mg tablet (Pacerone) 200 mg PO QAM 09/15/20 10/20/21 History apixaban 5 mg tablet (Eliquis) 5 mg PO BID 09/15/20 10/20/21 History atorvastatin 80 mg tablet (Lipitor) 80 mg PO QAM 09/15/20 10/20/21 History cholecalciferol (vitamin D3) 25 25 mcg PO QAM 09/15/20 10/20/21 History mcg (1,000 unit) capsule (Vitamin D3) clopidogrel 75 mg tablet (Plavix) 75 mg PO QAM 09/15/20 10/20/21 History finasteride 5 mg tablet (Proscar) 5 mg PO QAM 09/15/20 10/20/21 History gabapentin 100 mg capsule 100 mg PO TID 09/15/20 10/20/21 History (Neurontin) metoprolol tartrate 25 mg tablet 12.5 mg PO QAM 09/15/20 10/20/21 History ropinirole 0.5 mg tablet 0.5 mg PO QID 09/15/20 10/20/21 History tamsulosin 0.4 mg capsule (Flomax) 0.4 mg PO QDD 09/15/20 10/20/21 History calcium carbonate 200 mg calcium 500 mg PO BID 11/28/20 10/20/21 History (500 mg) chewable tablet (Calcium Antacid) pantoprazole 40 mg tablet,delayed 40 mg PO BID #60 tab 12/10/20 10/20/21 Rx release ferrous sulfate 325 mg (65 mg 325 mg PO BID 03/01/21 10/20/21 History iron) tablet lisinopril 2.5 mg tablet 2.5 mg PO QAM 03/01/21 10/20/21 History sodium di- and 1 tab PO QID 03/01/21 10/20/21 History monophosphate-potassium phos monobasic 250 mg tablet (Phospha 250 Neutral) fluoxetine 10 mg capsule 10 mg PO QAM 04/09/21 10/20/21 History levetiracetam 500 mg tablet 500 mg PO BID #60 tab 04/12/21 10/20/21 Rx (Keppra) Lactobacillus acidophilus 10 10,000 mmu cells PO QAM 05/29/21 10/20/21 History billion cell capsule (Probiotic) bisacodyl 10 mg rectal suppository 10 mg UT DAILY PRN 06/07/21 10/20/21 History (Dulcolax (bisacodyl)) docusate sodium 100 mg capsule 100 mg PO QAM 06/07/21 10/20/21 History (Colace) revefenacin 175 mcg/3 mL solution 175 mcg INHALATION DAILY #90 ml 07/12/21 10/20/21 Rx for nebulization (Yupelri) ondansetron 4 mg disintegrating 4 mg PO Q6H PRN 10/20/21 10/20/21 History tablet Patient History Medical History Acquired renal cyst of left kidney Aspiration into lower respiratory tract Atherosclerotic heart disease of [place] coronary artery without angina pectoris Benign prostatic hyperplasia with urinary obstruction Bladder calculi BPH (benign prostatic hypertrophy) Cerebral infarction, unspecified Chronic anticoagulation COPD (chronic obstructive pulmonary disease) 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) Dysarthria and anarthria Dysphagia Essential (primary) hypertension GIB (gastrointestinal bleeding) Hematuria Hemiplegia and 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- dominant side Hypercholesterolemia Hypoxia Inflammatory disorders of scrotum Mood disorder On home oxygen therapy 3L N/C at all times Osteoporosis Other obstructive and reflux uropathy Other pulmonary embolism without acute cor pulmonale Pressure ulcer Rectal bleeding Renal calculi Restless leg syndrome ST elevation myocardial infarction (STEMI) Unspecified atrial fibrillation Unspecified systolic (congestive) heart failure UTI (urinary tract infection) Surgical History History of hernia repair S/P drug eluting coronary stent placement (~12/03/19) S/P PTCA (percutaneous transluminal coronary angioplasty) Family History Denies family history of Ovarian cancer Prostate cancer Myocardial infarction Breast cancer Colorectal cancer Social History Smoking Status: Unknown if ever smoked Tobacco Type: Cigarettes and Cigars Second Hand Exposure: No; Hx Substance Use: No Preferred Language: Swedish Communication Ability: Effective 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 Undergoing critical care management for acute severe infection. HEENT: Normocephalic Atraumatic. Inspection normal. Normal inspection of face. Normal inspection of neck. Neurologic: Acutely ill, limited assessment however no deficits on inspection. Appears to be baseline for motor function and sensory. Psychologic: Acute delirium/somnolence secondary to illness Respiratory: Mild labored. No use of accessory muscles. No severe dyspnea. Cardiovascular: tachycardia Skin: [place] and Dry. No rashes or visible lesions. Febrile Extremities: Contracted extremities. Cachectic Lymphatics: Mild edema Abdomen: Mildly distended. No rebound or guarding. Mild suprapubic/flank tenderness : Campos in place draining dark yellow urine. Urine output has drastically improved over the last 2 to 3 hours had been scant for majority of overnight. Results & Data ([facility]) Vital Signs (Past 12 Hours) Vital Signs Temp Pulse Pulse Resp BP BP Pulse Ox 10/21/21 13:05 72 98/55 L 97 10/21/21 13:00 36.6 C 71 97/55 L 99 10/21/21 12:55 71 96/55 L 97 10/21/21 12:50 72 97/53 L 96 10/21/21 12:45 72 97/56 L 96 10/21/21 12:40 71 96/58 L 96 10/21/21 12:35 71 101/55 L 96 10/21/21 12:30 75 105/61 95 10/21/21 12:25 72 104/61 96 10/21/21 12:20 71 101/58 L 96 10/21/21 12:15 71 100/57 L 96 10/21/21 12:14 69 98/56 L 96 10/21/21 12:10 71 96 10/21/21 12:05 71 96 10/21/21 12:00 36.6 C 74 107/60 96 10/21/21 11:45 72 102/61 97 10/21/21 11:30 72 111/54 L 96 10/21/21 11:29 103 H 111/60 96 10/21/21 11:15 80 122/86 94 10/21/21 11:00 36.6 C 72 101/54 L 97 10/21/21 10:45 74 99/55 L 96 10/21/21 10:30 75 105/60 95 10/21/21 10:15 74 103/54 L 96 10/21/21 10:00 36.6 C 73 99/55 L 96 10/21/21 09:45 75 96/55 L 96 10/21/21 09:30 75 101/54 L 95 10/21/21 09:15 75 104/56 L 97 10/21/21 09:00 36.7 C 79 114/62 95 10/21/21 08:45 77 102/56 L 96 10/21/21 08:30 78 102/56 L 94 10/21/21 08:15 79 102/57 L 95 10/21/21 08:00 36.7 C 85 106/63 96 10/21/21 07:45 81 104/59 L 97 10/21/21 07:30 81 103/55 L 94 10/21/21 07:23 83 20 94 10/21/21 07:15 85 103/60 93 10/21/21 07:00 36.7 C 84 109/61 94 10/21/21 06:45 84 98/56 L 95 10/21/21 06:30 86 98/56 L 95 10/21/21 06:15 86 97/57 L 98 10/21/21 06:00 87 96/55 L 100 10/21/21 05:45 85 93/52 L 99 10/21/21 05:30 85 86/48 L 98 10/21/21 05:15 87 100/51 L 97 10/21/21 05:00 91 H 92/51 L 97 10/21/21 04:45 91 H 95/47 L 98 10/21/21 04:30 91 H 92/48 L 98 10/21/21 04:17 90 90/47 L 98 10/21/21 04:15 92 H 88/46 L 97 10/21/21 04:00 36.3 C L 92 H 81/46 L 96 10/21/21 03:55 93 H 24 97 10/21/21 03:54 93 H 83/43 L 96 10/21/21 03:45 93 H 85/45 L 97 10/21/21 03:30 90 81/44 L 98 10/21/21 03:29 90 80/43 L 98 10/21/21 03:28 90 85/43 L 98 10/21/21 03:15 89 83/44 L 98 10/21/21 03:00 89 78/43 L 98 10/21/21 02:57 89 75/42 L 98 10/21/21 02:53 88 73/39 L 97 10/21/21 02:50 87 68/40 L 96 10/21/21 02:45 87 63/37 L 95 10/21/21 02:40 87 94 10/21/21 02:38 37.9 C H 10/21/21 02:32 36.7 C 86 20 64/34 L 95 10/21/21 02:30 86 64/34 L 95 10/21/21 02:27 87 66/36 L 96 10/21/21 02:25 88 95 10/21/21 02:20 88 95 10/21/21 02:18 84 10/21/21 02:15 89 69/34 L 95 10/21/21 02:14 86 24 94 10/21/21 01:39 92 H 20 79/45 L 97 PG Care Time/CCT Total # of Minutes Spent Total Time Spent with Patient: Total time spent is greater than 50% in coordination of care (as documented) at patient's floor/unit and/or counseling patient: Coding Level of Care Code 44084 Inpt Consult Level 5 Diagnoses Severe sepsis A41.9; R65.20 Bladder stones N21.0 KAITY (acute kidney injury) N17.9 ST elevation myocardial infarction (STEMI) I21.3 Involved coronary artery: unspecified coronary artery Admitted to intensive care unit Z78.9 Bladder outlet obstruction N32.0 Hydronephrosis N13.30 (1) ST elevation myocardial infarction (STEMI) Involved coronary artery: unspecified coronary artery Qualified Code(s): I21.3 - ST elevation (STEMI) myocardial infarction of unspecified site
[2021-10-21 13:38] LABS: BUN Creatinine Ratio 18.4 (10-20); Calcium 7.7 mg/dl (8.5-10.1); Creatinine Clr Calc Pharmacy 27.8 ml/min; Est GFR (African American) 30.8 ml/min; Est GFR (Non-African American) 26.6 ml/min; Magnesium 1.9 mg/dl (1.7-2.4); Potassium 3.8 mmol/L (3.5-5.1)
[2021-10-21] MEDS ORDERED: VANCOMYCIN HCL 750 MG in SODIUM CHLORIDE 0.9% 250 ML IV SCH (14:00)
--- NOTE | 2021-10-21 14:52 | CT Scan Report ---
CT chest diagnostic wo con CLINICAL HISTORY: hypoxia . Shortness of breath COMPARISON STUDY: 03/26/2021 CT DOSE: TECHNIQUE: Standard CT of the Chest was performed without IV contrast. A dose lowering technique was utilized adhering to the principles of ALARA. FINDINGS: Airway: The airway is clear. No endobronchial lesion is identified. Lungs: Moderate centrilobular emphysematous changes are again seen involving both lungs. There is a c onfluent alveolar opacity present in the retrocardiac region on the left with a few air bronchograms present. Although this could relate to atelectasis, the presence of pneumonia is suggested by the min imal air bronchograms. Correlation with WBC count and temperature is recommended. The remainder of the lungs are clear. Pleura: There is evidence for small bilateral pleural effusions. There is no evidence for pneumothora x. Mediastinum: There is no evidence for pathologic adenopathy on these limited noncontrast images. The heart is mildly enlarged. There is extensive coronary artery calcification. The thoracic aorta is wit hin normal limits. There is no evidence for pericardial effusion. Osseous structures: There is no acute osseous pathology. IMPRESSION: 1. On the CT of the chest, there is actually extensive centrilobular emphysematous changes present th roughout both lungs. 2. The alveolar density at the left lung base has small air bronchograms and is more suspicious for t he possibility of pneumonia. Clinical correlation for WBC and fevers necessary. 3. Small bilateral pleural effusions. 4. Cardiomegaly and coronary artery calcification. ACT 112: Negative or not required by law. Electronically signed by: Davy Delcid M.D. 10/21/2021 2:50 PM
[2021-10-21] MEDS: TAMSULOSIN HCL 0.4 MG CAP PO SCH (16:31)
--- NOTE | 2021-10-21 17:32 | Electrocardiogram Report ---
Test Reason : Blood Pressure : / mmHG Vent. Rate : 072 BPM Atrial Rate : 072 BPM P-R Int : 256 ms QRS Dur : 110 ms QT Int : 418 ms P-R-T Axes : 066 -04 131 degrees QTc Int : 457 ms Sinus rhythm with 1st degree A-V block with Premature ventricular complexes Abnormal ECG When compared with ECG of 20-OCT-2021 20:23, Nonspecific T wave abnormality no longer evident in Inferior leads Inverted T waves have replaced nonspecific T wave abnormality in Anterior leads Confirmed by Jeremy Bazan ([id number]) on 10/21/2021 5:31:50 PM Referred By: REFERRED SELF Confirmed By:Miquel Bazan
[2021-10-21] MEDS: PANTOprazole 40 MG in SYRINGE 0 ML IV SCH (20:07)
--- NOTE | 2021-10-21 20:55 | Procedure Note ---
Procedure Note Date of Service October 21, 2021 Note Procedure: Rn Psychiatric Indwelling Peripherally Inserted IV Catheter Placement Attending: Dr. Avilez APC: Masoud Sullivan PA-C Indication: Need for IV Access, Poor Vascular Access Anesthesia: None Verbal consent was obtained from patient prior to performing the procedure. A time-out was completed verifying correct patient, procedure, site, positioning, and implant(s) or special equipment if applicable. Utilizing bedside ultrasound, vascularity of the RIGHT upper extremity was assessed. Vessel size was noted for appropriate catheter selection and skin was marked with gentle pressure. Patients RIGHT upper extremity was prepped and draped in the usual sterile fashion utilizing chlorhexidine. Ultrasound guidance was used to aid needle placement. A 20 g Endurance Catheter was introduced into the brachial vein under direct ultrasound guidance. Guide wire was easily deployed without resistance. Catheter was threaded over the guide wire without resistance and the entire apparatus was removed intact. Good venous blood return was noted in the catheter. The IV catheter was easily flushed with sterile saline flush. Sterile clave was attached to the end of the catheter and good blood return was again noted. Tourniquet was released. StatLock device and sterile dressing were applied. The patient tolerated the procedure well. Blood Loss: Minimal Complications: None Procedural Ultrasound Guidance: Procedure Date: 10/21/2021 Indication: Poor Vascular Access Attending: Dr. Avilez APC: Masoud Sullivan PA-C Artery/Veins Identified: YES Access confirmed in Vein with ultrasound: YES Complications: NONE Patient tolerated procedure: WELL Coding CPT Codes Tubes, Drains, and Vasc Access - Tubes, Drains, and Vasc Access: [id number] Venipuncture, Age 1/>Req phys skill, (sep proc), Dx/Tx (not rtn) ([id number]) [facility] Procedure Codes (Charges) Tubes, Drains, and Vasc Access Procedure 1: Tubes, Drains, and Vasc Access: [id number] Venipuncture, Age 1/>Req phys skill, (sep proc), Dx/Tx (not rtn)
[2021-10-22] MEDS: MEROPENEM 500 MG in SYRINGE 0 ML IV SCH ×3 (01:27→16:24)
[2021-10-22] MEDS: NORMOSOL-R 1,000 ML IV SCH ×2 (02:11→09:19)
[2021-10-22] MEDS: levETIRAcetam 500 MG in 0.9 % SODIUM CHLORIDE 100 ML IV SCH ×2 (05:30→17:41)
[2021-10-22 06:13] LABS: Hematocrit (blood only) 33.5 % (42-52); Hemoglobin 11.1 g/dL (14.0-18.0); Mean Corpuscular Hemoglobin 32.1 pg (25-34); Mean Corpuscular Hgb Conc 33.1 g/dL (32-36); Mean Corpuscular Volume 96.8 fL (80-100); RDW Coefficient of Variation 14.1 % (11.5-14.5); Red Blood Count 3.46 M/uL (4.7-6.1); White Blood Count 17.16 K/uL (4.8-10.8)
[2021-10-22 06:15] LABS: Mean Platelet Volume 11.8 fL (7.4-10.4); Platelet Count 90 K/uL (130-400)
[2021-10-22 06:40] LABS: Acanthocytes 1+; Basophils # (auto) 0.01 K/uL (0-0.2); Basophils % (auto) 0.1 %; Echinocytes 1+; Eosinophils # (auto) 0.03 K/uL (0-0.5); Eosinophils % (auto) 0.2 %; Immature Granulocytes # (auto) 0.42 K/uL (0.00-0.02); Immature Granulocytes % (auto) 2.4 %; Lymphocytes # (auto) 0.54 K/uL (1.2-3.4); Lymphocytes % (auto) 3.1 %; Monocytes # (auto) 0.54 K/uL (0.11-0.59); Monocytes % (auto) 3.1 %; Neutrophils # (auto) 15.62 K/uL (1.4-6.5); Neutrophils % (auto) 91.1 %; Toxic Vacuolation 1+
[2021-10-22 06:50] LABS: Alanine Aminotransferase 28 U/L (7-52); Albumin Level 2.6 gm/dl (3.4-5.0); Alkaline Phosphatase 71 U/L (34-104); Anion Gap 5 (3-11); BUN Creatinine Ratio 25.2 (10-20); Blood Urea Nitrogen 41 mg/dl (6-23); Calcium 7.8 mg/dl (8.5-10.1); Carbon Dioxide 24 mmol/L (21-32); Chloride 109 mmol/L (98-107); Creatinine Clr Calc Pharmacy 39.9 ml/min; Est GFR (African American) 47.7 ml/min; Est GFR (Non-African American) 41.2 ml/min; Glucose 79 mg/dl (70-99(Fasting)); Phosphorus 2.5 mg/dl (2.5-4.9); Sodium 138 mmol/L (136-145); Total Protein 4.5 gm/dl (6.0-8.3)
[2021-10-22 08:16] LABS: Bilirubin Direct 0.3 mg/dl (0-0.2); Potassium 3.4 mmol/L (3.5-5.1)
[2021-10-22] MEDS: rOPINIRole HCL 0.25 MG TABLET PO SCH ×4 (09:21→20:44)
[2021-10-22] MEDS: POT PHOSPHATE MONOBASIC W/ SOD TAB PO SCH ×4 (09:22→20:45)
[2021-10-22] MEDS: ATORVASTATIN 40 MG TAB PO SCH (09:22)
[2021-10-22] MEDS: FLUoxetine HCL 10 MG CAP PO SCH (09:22)
[2021-10-22] MEDS: GABAPENTIN 100 MG CAP PO SCH ×3 (09:22→20:45)
[2021-10-22] MEDS: ADVANCED PROBIOTIC 1250 MG CAPSULE PO SCH (09:23)
[2021-10-22] MEDS: AMIODARONE 200 MG TAB PO SCH (09:23)
[2021-10-22] MEDS: FINASTERIDE 5 MG TAB PO SCH (09:23)
[2021-10-22] MEDS: MULTIVITAMIN TAB PO SCH (09:23)
[2021-10-22] MEDS: PANTOprazole 40 MG in SYRINGE 0 ML IV SCH ×2 (09:41→22:18)
[2021-10-22] MEDS ORDERED: VANCOMYCIN HCL 1,000 MG in SODIUM CHLORIDE 0.9% 250 ML IV ONE (10:00)
[2021-10-22] MEDS ORDERED: POTASSIUM CHLORIDE CRTAB 20 MEQ TABCR PO STA ×2 (10:27→15:27)
--- NOTE | 2021-10-22 10:49 | Pharmacy Report ---
Pharmacy PK ABX Note - Date of Service October 22, 2021 - Assessment and Plan Assessment 71 year old M receiving Vancomycin and Meropenem for treatment of a complicated UTI. * Day #2 of antimicrobial therapy. * 24 hr Tmax of 38oC. Leukocytosis improving. Significant improvement in KAITY this morning (SCr 2.46-->1.63; UO 0.83 cc/kg/hr over last 24 hrs). * Urine culture finalized as pansensitive E. coli. Still awaiting identification and susceptibilities of GNB in blood cultures. * Will discuss de-escalation of abx with hospitalist team. Plan Vancomycin * Current regimen: 750 mg IV x 1 (dosing by level given KAITY). * Random level obtained 10/22/21 resulted as 12.0 mcg/mL. This is subtherapeutic and not predicted to achieve target AUC/MANDEEP of 400-600 mg/L.hr. * Change to 1000 mg IV x 1 this AM. Predicted AUC at steady state: 496 mg/L.hr. * Repeat random level ordered for: 10/23/21. Meropenem * 500 mg IV every 8 hours remains appropriate given patient's renal function. Pharmacy will continue to follow and will adjust dose/frequency as necessary. Thank you. Pharmacy has transitioned to AUC monitoring for vancomycin. AUC/MANDEEP is the preferred PK/PD target and is associated with decreased risk of nephrotoxicity compared to traditional trough targets.
--- NOTE | 2021-10-22 13:23 | Urology Progress Note ---
Date of Service October 22, 2021 Assessment & Plan (1) Severe sepsis: (2) Hydronephrosis: (3) Bladder outlet obstruction: (4) KAITY (acute kidney injury): (5) Bladder stones: Plan: 71yo M with multiple medical problems admitted with sepsis in the setting of UTI and possible aspiration pneumonia. - CT abdomen pelvis notable for bladder outlet obstruction and hydronephrosis and bladder stones vs. calcified mass within the bladder. - Tmax 37.6C this afternoon but has otherwise been afebrile. - Labs reviewed - Wbc 17.16 today (18.03 yesterday), Creatinine downtrending, 1.46 today - Continue to trend. - Urine culture 10/20 final with E.coli; Blood cultures prelim gram negative bacilli, repeat pending. - Continues on IV Meropenem, follow cultures. - Campos catheter intact, draining yellow urine with sediment noted. - Maintain Campos catheter and monitor urine output. - Continue supportive care and close monitoring. - Will plan to make NPO at midnight to reassess need for stent in the AM if patient's condition worsens or he has continued issues. - Will continue to follow. Admission and Anticipated Discharge Date Admission Date: October 21, 2021 Supervising Physician Co-Signing Physician Notes I have discussed Patel' case with JIMENA Crane and agree with the above documentation. Patient with multiple comorbidities, making full assessment challenging. Overall fairly stable from yesterday. Leukocytosis and creatinine have both been improving. It is unclear how much his underlying urologic issues are contributing to the picture. Urine culture showing E. coli infection, blood cultures with gram negative bacilli, repeat cultures pending. CT scan demonstrated hydronephrosis with what appeared to be bladder stones. Would recommend supportive care for now. Urology will plan to reassess for possible stent placement. Patient made n.p.o. at midnight. Subjective Pt examined at beside. Awake, resting in bed on arrival. No acute distress. Denies abdominal, flank, and back pain. Denies nausea/vomiting. Campos catheter intact, draining yellow urine with sediment in tubing. Urine output overnight -370ml Temp 37.6 at 1208, otherwise has remained afebrile. On O2 via NC. Review of Systems Constitutional: as per Subjective / HPI Gastrointestinal: as per Subjective / HPI Genitourinary: + as per Subjective / HPI Physical Exam Constitutional: + ill appearing; no acute distress Respiratory: no respiratory distress and no labored breathing On O2 via NC Gastrointestinal (Abdomen): Percussion/Palpation: abdomen soft; abdomen nontender and no guarding Skin: No visible rashes or lesions to exposed skin areas Neurologic: awake Psychiatric: Orientation: alert and oriented x 3 Genitourinary: no CVA tenderness Campos catheter intact Results & Data ([facility]) Vital Signs (Past 12 Hours) Vital Signs Temp Pulse Pulse Resp BP BP Pulse Ox 10/22/21 12:08 37.6 C H 109 H 20 94/66 L 92 10/22/21 11:14 37.1 C 124 H 24 101/56 L 92 10/22/21 08:00 77 10/22/21 07:09 20 94 10/22/21 06:30 76 105/55 L 92 10/22/21 06:15 75 103/56 L 93 10/22/21 06:00 73 98/50 L 93 10/22/21 05:30 73 114/63 93 10/22/21 05:15 76 112/62 95 10/22/21 05:00 73 105/58 L 95 10/22/21 04:45 73 114/63 94 10/22/21 04:30 71 111/58 L 95 10/22/21 04:15 72 103/55 L 95 10/22/21 04:00 75 113/62 93 10/22/21 03:45 72 113/59 L 95 10/22/21 03:30 73 102/56 L 94 10/22/21 03:15 73 99/52 L 92 10/22/21 03:10 74 10/22/21 03:00 72 102/56 L 94 10/22/21 02:45 69 116/44 L 93 10/22/21 02:30 74 108/58 L 93 10/22/21 02:15 72 100/51 L 95 10/22/21 02:00 73 93 10/22/21 01:45 76 92 10/22/21 01:30 73 102/55 L 94 PG Care Time/CCT Total # of Minutes Spent Total Time Spent with Patient: Total time spent is greater than 50% in coordination of care (as documented) at patient's floor/unit and/or counseling patient: Coding Level of Care Code 30393 Subseq Hosp Care Lvl 2 Diagnoses Hydronephrosis N13.30 Bladder outlet obstruction N32.0 KAITY (acute kidney injury) N17.9 Bladder stones N21.0 Severe sepsis A41.9; R65.20
[2021-10-22 13:30] LABS: Albumin Globulin Ratio 1.4 (0.9-2); Albumin Level 2.7 gm/dl (3.4-5.0); BUN Creatinine Ratio 26.7 (10-20); Calcium 8.1 mg/dl (8.5-10.1); Creatinine Clr Calc Pharmacy 44.6 ml/min; Est GFR (African American) 54.5 ml/min; Globulin 1.9 gm/dl (2.5-4.0); Magnesium 2.2 mg/dl (1.7-2.4); Phosphorus 2.2 mg/dl (2.5-4.9); Potassium 3.4 mmol/L (3.5-5.1); Total Protein 4.6 gm/dl (6.0-8.3)
--- NOTE | 2021-10-22 13:45 | Fluoroscopy Report ---
FL video swallow CLINICAL HISTORY: Difficulty swallowing. Evaluate for aspiration. COMPARISON STUDY: No previous studies for comparison. FLUOROSCOPY TIME: 2.4 minutes. NUMBER OF IMAGES: 9 fluoroscopic cine esophagram swallowing sequences. FINDINGS: The patient was given barium of varying consistencies and observed under fluoroscopy with c oncurrent tape recording. Examination is performed in conjunction with a member of the speech patholo gy department. The patient was given the following consistencies of barium: Thin liquid, mildly thick liquid, modera tely thick liquid, pudding, and cracker with paste. There was no significant laryngeal penetration or aspiration with all substances tested. There was mi nimal coughing with no evidence for aspiration. There was no pooling within the vallecula. There was no pooling within the puriform sinuses. IMPRESSION: No significant laryngeal penetration or aspiration identified. Please see report from speech pathology regarding additional findings recommendations. ACT 112: Negative or not required by law. Electronically signed by: Davy Delcid M.D. 10/22/2021 1:43 PM
[2021-10-22] MEDS: METOPROLOL TARTRATE 25 MG TAB PO SCH (14:34)
[2021-10-22] MEDS ORDERED: POTASSIUM PHOS 3 MMOL/1 ML INFUSION IV STA (15:01)
--- NOTE | 2021-10-22 15:20 | Hospitalist Progress Note ---
Date of Service October 22, 2021 Assessment & Plan (1) Severe sepsis: Plan: 71-year-old male w/ PMH of hyperlipidemia, COPD, history of masses in upper lobe of left lung, history of CVA, left hemiplegia mostly bedbound, history of dysarthria on mechanical soft diet and nectar thick liquids as per the [facility], history of atrial fibrillation on eliquis, history of systolic CHF, history of pulmonary embolism, depression, pulmonary hypertension, hypertension, protein calorie malnutrition, history of GI bleed, history of tubular adenoma of small intestine, diverticulosis, BPH, kidney stones, osteoporosis, contraction of the muscle of the left lower extremity, partial complex seizures, CAD status post stent placement, history of tobacco abuse, currently at [facility], mostly bedbound, comes 10/21 because the patient was vomiting since 1 day BLADE FILER x several episodes. His abdominal x-ray showed ileus. As he was not getting better, he was not feeling good, he was transferred to the hospital. He was hypoxic. Initially he was only 85%, he was placed on high-flow oxygen. Initial BP was soft, and also spiked temperature on the night of presentation. He is being managed for the following: #. Septic shock requiring pressors #. Severe sepsis POA 06/13 below #. Aspiration pneumonia - had vomiting BLADE FILER. Admitting CXR reviewed. Admitting Chest CT w/ centrilobular emphysematous changes throughout both lungs. LLL pna. #. UTI #. Metabolic encephalopathy: Per [facility], he is generally oriented. Currently lethargic, Ox1. Patient presented with severe sepsis likely secondary to aspiration pneumonitis versus UTI After admission, blood pressure dropped and was treated w/ IVF and in the ICU with pressors, off of pressors 2:30 AM on 10/22/2021. Patient was empirically started on meropenem and vancomycin on 10/21. Patient has history of ESBL UTI in the past. Speech evaluated 10/22, appreciate recommendation. 10/20 blood culture gram-negative bacilli, follow-up final results. 10/20 urine culture: E. coli pansensitive WBC downtrending, temperature better controlled. Continue with meropenem 10/11 oh, DC vancomycin 10/22. Taper antibiotic after blood culture final results. For concerns of scattered crackles, will hold IVF, midodrine at very low dose 6/13. Lactate downtrending, continue to follow. Thiamine p.o. for a week. #. KAITY Baseline creatinine around 1 Admitting creatinine of 2.2, likely prerenal from septic shock, improving, follow BMP in AM. IV fluid on hold due to concerns of fluid overload, continue to monitor. Patient started on oral diet today. #. Elevated troponin, likely demand ischemia Likely demand ischemia secondary to septic shock, troponin trending down. Patient with no chest pain. Continue to monitor over telemetry. #. Questionable GI bleed: Concern for coffee-ground emesis while the patient was in route by ambulance. Per Nursin home, the vomitus was brown. Hemooccult was positive in the ER. Admitting CTAP s/o ileus vs gastroenteritis, no SBO. Gi evaluated, on iv PPI BID. Hb stable. #. History of atrial fibrillation Patient on Eliquis, amiodarone and metoprolol at home Converted to A. fib RVR at 10:29 AM on 10/22/2021 Electrolytes, EKG, troponin sent and reviewed. TSH normal. Electrolytes repleted. ? Start Eliquis? Continue to monitor hemoglobin Low dose heparin drip, pt on iv ppi bid per GI. Cardiology consult. Amiodarone was started, blood pressure soft, start metoprolol as able. #. 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 IVF currently on hold, monitor for volume overload. PE: On Eliquis at home, currently held. A. fib: On metoprolol and amiodarone, continue as able, watch for hypotension. Eliquis on hold. BPH, GERD, RLS, HLD and HTN: Resume home meds Acute ischemic right middle cerebral artery stroke, currently bedbound. Plavix on hold, resume when GI bleed resolved. #. Deep venous thrombosis prophylaxis: Sequential compression devices for now. #. DNR/DNI. Admission and Anticipated Discharge Date Admission Date: October 21, 2021 Subjective Patient seen and examined at bedside as a follow-up of severe sepsis with shock possibly secondary to aspiration pneumonia versus UTI, gram-negative bacteremia. Patient was lying in bed, on 6 L nasal cannula oxygen, NAD, was lethargic, oriented x1, left extremities with residual weakness. Per RN patient has been on and off confused, Levophed has been off since 2:30 AM overnight, no new acute events overnight. Patient was n.p.o., pending speech eval, diet per speech recommendation. Patient denies any pain, endorses being thirsty. Patient had bowel movement yesterday. Patient denied chest pain or belly pain. Late morning, I was paged for A. fib RVR, heart rate in the 110s, patient does have history of A. fib, labs for electrolytes and troponin were sent, EKG sent. All the investigations reviewed. Electrolytes replaced. Patient's blood pressure borderline normal, patient without any chest pain. Troponin downtrending from prior troponin level. Physical Exam Physical Exam: GENERAL: Lethargic and oriented x1. NAD, on 3L NC O2. HEENT: No pallor, no icterus. Pupils equal, round and reactive to light. Oral mucosa moist. NECK: No JVD, no neck masses. HEART: S1 and S2 heard. irregular rate and rhythm. No murmur, no gallop. RESPIRATORY SYSTEM: Normal AP diameter. No accessory muscle use. No wheezing, scattered b/l crackles. ABDOMEN: Soft, bowel sounds present, nontender, no distention. CENTRAL NERVOUS SYSTEM: No facial droop. Speech is clear. Obeys simple commands. Left extremities w/ residual weakness/paralysis. Rt extremities at baseline. EXTREMITIES: trace ble edema, no erythema seen. Results & Data Results & Data ([facility]) Vital Signs (Past 12 Hours) Vital Signs Temp Pulse Pulse Resp BP BP Pulse Ox 10/22/21 14:59 37.1 C 105 H 20 95/60 L 93 10/22/21 14:00 87/58 L 10/22/21 12:08 37.6 C H 109 H 20 94/66 L 92 10/22/21 11:14 37.1 C 124 H 24 101/56 L 92 10/22/21 08:00 77 10/22/21 07:09 20 94 10/22/21 06:30 76 105/55 L 92 10/22/21 06:15 75 103/56 L 93 10/22/21 06:00 73 98/50 L 93 10/22/21 05:30 73 114/63 93 10/22/21 05:15 76 112/62 95 10/22/21 05:00 73 105/58 L 95 10/22/21 04:45 73 114/63 94 10/22/21 04:30 71 111/58 L 95 10/22/21 04:15 72 103/55 L 95 10/22/21 04:00 75 113/62 93 10/22/21 03:45 72 113/59 L 95 10/22/21 03:30 73 102/56 L 94 10/22/21 03:15 73 99/52 L 92 10/22/21 03:10 74
[2021-10-22] MEDS ORDERED: POTASSIUM PHOSPHATE 15 MMOL in DEXTROSE 5% 250 ML IV ONE (15:30)
[2021-10-22] MEDS: THIAMINE HCL 100 MG TAB PO SCH (16:14)
[2021-10-22] MEDS: TAMSULOSIN HCL 0.4 MG CAP PO SCH (16:19)
[2021-10-22] MEDS: MIDODRINE HCL 2.5 MG TAB PO SCH (16:53)
[2021-10-22] MEDS ORDERED: HEPARIN 25000 UNIT/500 ML D5W IV ONE (17:11)
[2021-10-22] MEDS: HEPARIN SODIUM/DEXTROSE 25,000 UNITS/500 ML BAG IV SCH (17:21)
[2021-10-22 17:35] LABS: Partial Thromboplastin Ratio 1.1; Partial Thromboplastin Time 30.2 Seconds (21.0-31.0)
[2021-10-22] MEDS: Heparin IV Adult Wt-Based Low-Dose *NO* Bolus Protocol IV SCH ×5 (17:49→20:16)
--- NOTE | 2021-10-22 18:39 | Electrocardiogram Report ---
Test Reason : Blood Pressure : / mmHG Vent. Rate : 112 BPM Atrial Rate : 120 BPM P-R Int : 000 ms QRS Dur : 116 ms QT Int : 362 ms P-R-T Axes : 000 009 149 degrees QTc Int : 494 ms Atrial fibrillation with rapid ventricular response Nonspecific ST and T wave abnormality Abnormal ECG When compared with ECG of 21-OCT-2021 12:03, Atrial fibrillation has replaced Sinus rhythm Vent. rate has increased BY 40 BPM T wave inversion no longer evident in Anterolateral leads Confirmed by Jeremy Bazan ([id number]) on 10/22/2021 6:39:28 PM Referred By: REFERRED SELF Confirmed By:Miquel Bazan
--- NOTE | 2021-10-22 19:17 | CT Scan Report ---
CT SCAN OF THE BRAIN WITHOUT IV CONTRAST CLINICAL HISTORY: Headache. COMPARISON STUDY: CT of the brain dated 05/29/2021. TECHNIQUE: Unenhanced axial CT scan of the brain is performed from the vertex to the skull base. A do se lowering technique was utilized adhering to the principles of ALARA. The patient was scanned twice due to motion artifact. The examination is significantly degraded by motion artifact and inability t o properly position the patient within the CT gantry. CT DOSE: 1532.08 mGy.cm FINDINGS: Brain parenchyma: Right MCA territory encephalomalacia is consistent with a remote infarct and unchan ged. A small chronic infarct is also seen in the left parietal lobe. There are age-related involution al changes noting mild subcortical and periventricular microangiopathic change. Wallerian degenerati on is noted in the right aspect of the zohaib. There is no hemorrhage, mass effect, or evidence of acut e territorial ischemia by CT criteria. Caraballo-white matter differentiation is preserved. No extra-axial fluid collection is seen. Ventricles, sulci, cisterns: Prominent secondary to involutional change. Intracranial vasculature: There is atherosclerotic calcification of the cavernous carotid and vertebr al arteries. Calvarium: Unremarkable. Sinuses and mastoids: The paranasal sinuses are clear. The mastoid air cells are well pneumatized. Orbits: The bony orbits are grossly intact. There are bilateral ocular lens implants. IMPRESSION: 1. There is no hemorrhage, mass effect, or evidence of acute territorial ischemia by CT criteria noti ng a degraded examination. 2. Remote infarcts are unchanged. ACT 112: Negative or not required by law.' Electronically signed by: Driss Villalba M.D. 10/22/2021 7:15 PM
[2021-10-23] MEDS: MEROPENEM 500 MG in SYRINGE 0 ML IV SCH ×2 (01:26→09:41)
[2021-10-23 03:32] LABS: Hematocrit (blood only) 37.4 % (42-52); Hemoglobin 12.7 g/dL (14.0-18.0); Mean Corpuscular Volume 94.2 fL (80-100); RDW Standard Deviation 48.5 fL (36.4-46.3); Red Blood Count 3.97 M/uL (4.7-6.1); White Blood Count 13.21 K/uL (4.8-10.8)
[2021-10-23 03:39] LABS: Mean Platelet Volume 11.8 fL (7.4-10.4); Platelet Count 85 K/uL (130-400)
[2021-10-23 03:47] LABS: Partial Thromboplastin Ratio 1.3; Partial Thromboplastin Time 35.7 Seconds (21.0-31.0)
[2021-10-23 04:08] LABS: Albumin Level 2.7 gm/dl (3.4-5.0); BUN Creatinine Ratio 29.2 (10-20); Bilirubin Direct 0.2 mg/dl (0-0.2); Bilirubin,Total 0.9 mg/dl (0.2-1.0); Calcium 8.3 mg/dl (8.5-10.1); Creatinine Clr Calc Pharmacy 57.6 ml/min; Est GFR (African American) 74.3 ml/min; Est GFR (Non-African American) 64.1 ml/min; Magnesium 2.1 mg/dl (1.7-2.4); Phosphorus 2.6 mg/dl (2.5-4.9); Potassium 4.2 mmol/L (3.5-5.1); Total Protein 4.6 gm/dl (6.0-8.3)
[2021-10-23 04:14] LABS: Acanthocytes 1+; Dohle Bodies Occasional; Echinocytes 1+; Eosinophils # (auto) 0.05 K/uL (0-0.5); Eosinophils % (auto) 0.4 %; Immature Granulocytes # (auto) 0.06 K/uL (0.00-0.02); Immature Granulocytes % (auto) 0.5 %; Lymphocytes # (auto) 0.53 K/uL (1.2-3.4); Monocytes # (auto) 0.46 K/uL (0.11-0.59); Monocytes % (auto) 3.5 %; Neutrophils # (auto) 12.11 K/uL (1.4-6.5); Neutrophils % (auto) 91.6 %; Toxic Vacuolation 1+
[2021-10-23] MEDS ORDERED: HEPARIN SOD (PORCINE) 1000 UNIT/ML IV ONE (04:45)
[2021-10-23] MEDS: levETIRAcetam 500 MG in 0.9 % SODIUM CHLORIDE 100 ML IV SCH ×2 (05:58→17:14)
--- NOTE | 2021-10-23 08:43 | Urology Progress Note ---
Date of Service October 23, 2021 Assessment & Plan (1) Bladder outlet obstruction: (2) Severe sepsis: Plan: Patient gradually improving with conservative management of Campos catheter At this stage I think it is best to continue with this plan and avoid any acute intervention Okay to advance diet from a standpoint We will continue to follow along but do not plan to pursue a stent at this time Admission and Anticipated Discharge Date Admission Date: October 21, 2021 Subjective Patient is interactive but his responses are limited and do not show to tremendous amount of light on his current status He denies any abdominal pain on the left or right He reports that he is tolerating his catheter and has no discomfort from it He is afebrile but tachycardic Roughly normotensiveleaning towards hypotensive with a systolic of 91 Creatinine has improved White blood cell count improving Culture is showing E. coli in both urine and blood x2 On IV meropenem Physical Exam Constitutional: well developed and well nourished Respiratory: no respiratory distress Gastrointestinal (Abdomen): Inspection/Auscultation: abdomen normal to inspection; abdomen not distended Genitourinary: urine clear - cath - no CVA tenderness on the right or left Results & Data ([facility]) Vital Signs (Past 12 Hours) Vital Signs Temp Pulse BP Pulse Ox Pulse Ox 10/23/21 03:15 36.9 C 126 H 91/67 L 89 L 10/23/21 03:01 101 H 98/69 L 88 L 10/23/21 02:45 114 H 83/71 L 90 10/23/21 02:31 99 H 94/66 L 90 10/23/21 02:15 125 H 111/65 89 L 10/23/21 02:00 110 H 94/68 L 90 90 10/23/21 01:46 116 H 86/71 L 90 10/23/21 01:30 113 H 107/61 90 10/23/21 01:15 115 H 94/69 L 90 10/23/21 01:00 109 H 98/79 L 89 L 10/23/21 00:47 112 H 109/69 90 10/23/21 00:15 114 H 108/76 91 10/23/21 00:00 36.8 C 112 H 88/64 L 91 10/22/21 23:45 104 H 102/56 L 91 10/22/21 23:30 96 H 85/64 L 90 10/22/21 23:25 117 H 10/22/21 23:15 37.1 C 109 H 91/74 L 91 10/22/21 23:01 102 H 98/73 L 91 10/22/21 22:45 109 H 82/63 L 91 10/22/21 22:30 101 H 100/59 L 91 10/22/21 22:15 109 H 95/75 L 88 L 10/22/21 22:02 88 L 10/22/21 21:45 119 H 122/76 88 L 10/22/21 21:30 110 H 103/74 91 10/22/21 21:15 110 H 109/67 90 10/22/21 21:00 102 H 105/69 90 10/22/21 20:45 112 H 117/73 90 PG Care Time/CCT Total # of Minutes Spent Total Time Spent with Patient: Total time spent is greater than 50% in coordination of care (as documented) at patient's floor/unit and/or counseling patient: Coding Level of Care Code 95829 Subseq Hosp Care Lvl 2 Diagnoses Bladder outlet obstruction N32.0 Severe sepsis A41.9; R65.20
[2021-10-23] MEDS: ATORVASTATIN 40 MG TAB PO SCH (08:56)
[2021-10-23] MEDS: FLUoxetine HCL 10 MG CAP PO SCH (08:56)
[2021-10-23] MEDS: GABAPENTIN 100 MG CAP PO SCH ×3 (08:56→23:16)
[2021-10-23] MEDS: AMIODARONE 200 MG TAB PO SCH ×3 (08:56→17:12)
[2021-10-23] MEDS: FINASTERIDE 5 MG TAB PO SCH (08:56)
[2021-10-23] MEDS: ADVANCED PROBIOTIC 1250 MG CAPSULE PO SCH (08:57)
--- NOTE | 2021-10-23 09:17 | Cardiology Consultation ---
Date of Consultation October 23, 2021 Assessment & Plan (1) Sepsis: (2) Atrial fibrillation with RVR: (3) HFrEF (heart failure with reduced ejection fraction): (4) Ischemic heart disease: (5) CVA (cerebral vascular accident): (6) History of pulmonary embolism: Medically complex 71-year-old male. Currently being treated for sepsis. Carries a history of paroxysmal atrial fibrillation normally well controlled with amiodarone and metoprolol and anticoagulated on Eliquis. Recurrence of a trial fibrillation in the setting of pressor use. Eliquis has been held due to questionable GI bleed, patient treated conservatively with IV Protonix and is now on heparin drip. Heart rates averaging in the 110s to 130s (atrial fib/flutter). Amiodarone has since been restarted. 1. As sepsis is treated heart rate should continue to improve. Increase amiodarone to 200 mg 3 times daily and restart metoprolol tartrate at 12.5 mg twice daily. Monitor closely for hypotension. 2. Continue with IV heparin without interruption if possible. 3. Can consider repeat echocardiogram once heart rates are controlled to reassess LV systolic function. 4. Continue to follow renal function and electrolytes. Replete electrolytes for goal potassium of 4.0 and a magnesium of 2.[address] Yousif- will follow. Supervising Physician Co-Signing Physician Notes Patient was seen and examined, chart, medications, telemetry reviewed. Assessment as well outlined above. Patient with history of paroxysmal atrial fibrillation lapsed into atrial fibrillation in the setting of acute illness and necessitating pressors. Patient remains in atrial fibrillation. We have upward titrated medications including amiodarone and metoprolol. Would continue anticoagulation with further recommendations as clinical course progresses. Patient may spontaneously convert back to sinus rhythm as clinical condition improves History of Present Illness Reason for Consultation: Atrial fibrillation Requesting Physician: Jerrica matos Attending Physician: Inocente Felton MD History of Present Illness 71-year-old male initially presented to the ED due to several episodes of vomiting. Abdominal x-ray showed ileus. He was also found to be hypoxic with an SPO2 of 85% placed on high flow oxygen. Patient became hypotensive and spiked a temperature of 38 C. Dx with severe sepsis secondary to possible aspiration pneumonia, UTI and KAITY. Patient was treated with antibiotics and IV fluids. Occult blood positive-started on Protonix drip and tx to IVP. Patient carries a history of paroxysmal atrial fibrillation. Eliquis and Plavix was held due to questionable GI bleed. Metoprolol and amiodarone held for hypotension. Previously required pressor support, discontinued on 10/22. Lapsed into atrial fib while receiving pressor support. Was started on heparin 10/22- held later that evening due to occipital headache, head CT showed no hemorrhage. Heparin restarted. Amiodarone restarted on 10/22. Metoprolol remained on hold. Tele: Atrial fibrillation/flutter 110s to 130s. Chart reviewed. Telemetry reviewed. Patient seen and examined at bedside. Review of systems limited due to patient cognitive status. Patient denied any specific concerns but stated that he had a "bad night". Past Medical History: Hx of ischemic right MCA CVA, residual dysarthria and left hemiplegia- on plavix History of atrial fibrillation, on Eliquis Hx of HFrEF, ICM, EF of 40% to 45% Hx of CAD, s/p coronary stent of unknown specifics HTN Hx of PE COPD, hx of tobacco use Mass of upper left lobe Pulm HTN HX of seizures Allergies Allergy/AdvReac Type Severity Reaction Status Date / Time No Known Allergies Allergy Verified 07/12/21 10:52 Home Medications Medication Instructions Recorded Confirmed Type multivitamin (Daily Multi-Vitamin) 1 tab PO QAM 11/03/18 10/20/21 History acetaminophen 325 mg tablet 650 mg PO Q4H PRN 09/15/20 10/20/21 History (Tylenol) apixaban 5 mg tablet (Eliquis) 5 mg PO BID 09/15/20 10/20/21 History atorvastatin 80 mg tablet (Lipitor) 80 mg PO QAM 09/15/20 10/20/21 History cholecalciferol (vitamin D3) 25 25 mcg PO QAM 09/15/20 10/20/21 History mcg (1,000 unit) capsule (Vitamin D3) clopidogrel 75 mg tablet (Plavix) 75 mg PO QAM 09/15/20 10/20/21 History finasteride 5 mg tablet (Proscar) 5 mg PO QAM 09/15/20 10/20/21 History gabapentin 100 mg capsule 100 mg PO TID 09/15/20 10/20/21 History (Neurontin) metoprolol tartrate 25 mg tablet 12.5 mg PO QAM 09/15/20 10/20/21 History ropinirole 0.5 mg tablet 0.5 mg PO QID 09/15/20 10/20/21 History tamsulosin 0.4 mg capsule (Flomax) 0.4 mg PO QDD 09/15/20 10/20/21 History calcium carbonate 200 mg calcium 500 mg PO BID 11/28/20 10/20/21 History (500 mg) chewable tablet (Calcium Antacid) pantoprazole 40 mg tablet,delayed 40 mg PO BID #60 tab 12/10/20 10/20/21 Rx release ferrous sulfate 325 mg (65 mg 325 mg PO BID 03/01/21 10/20/21 History iron) tablet lisinopril 2.5 mg tablet 2.5 mg PO QAM 03/01/21 10/20/21 History sodium di- and 1 tab PO QID 03/01/21 10/20/21 History monophosphate-potassium phos monobasic 250 mg tablet (Phospha 250 Neutral) fluoxetine 10 mg capsule 10 mg PO QAM 04/09/21 10/20/21 History levetiracetam 500 mg tablet 500 mg PO BID #60 tab 04/12/21 10/20/21 Rx (Keppra) Lactobacillus acidophilus 10 10,000 mmu cells PO QAM 05/29/21 10/20/21 History billion cell capsule (Probiotic) bisacodyl 10 mg rectal suppository 10 mg AR DAILY PRN 06/07/21 10/20/21 History (Dulcolax (bisacodyl)) docusate sodium 100 mg capsule 100 mg PO QAM 06/07/21 10/20/21 History (Colace) revefenacin 175 mcg/3 mL solution 175 mcg INHALATION DAILY #90 ml 07/12/21 10/20/21 Rx for nebulization (Yupelri) ondansetron 4 mg disintegrating 4 mg PO Q6H PRN 10/20/21 10/20/21 History tablet amiodarone 200 mg PO QAM 10/22/21 10/22/21 History Patient History Medical History Acquired renal cyst of left kidney Aspiration into lower respiratory tract Atherosclerotic heart disease of [place] coronary artery without angina pectoris Benign prostatic hyperplasia with urinary obstruction Bladder calculi BPH (benign prostatic hypertrophy) Cerebral infarction, unspecified Chronic anticoagulation COPD (chronic obstructive pulmonary disease) 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) Dysarthria and anarthria Dysphagia Essential (primary) hypertension GIB (gastrointestinal bleeding) Hematuria Hemiplegia and 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- dominant side Hypercholesterolemia Hypoxia Inflammatory disorders of scrotum Mood disorder On home oxygen therapy 3L N/C at all times Osteoporosis Other obstructive and reflux uropathy Other pulmonary embolism without acute cor pulmonale Pressure ulcer Rectal bleeding Renal calculi Restless leg syndrome ST elevation myocardial infarction (STEMI) Unspecified atrial fibrillation Unspecified systolic (congestive) heart failure UTI (urinary tract infection) Surgical History History of hernia repair S/P drug eluting coronary stent placement (~12/03/19) S/P PTCA (percutaneous transluminal coronary angioplasty) Family History Denies family history of Ovarian cancer Prostate cancer Myocardial infarction Breast cancer Colorectal cancer Social History Smoking Status: Unknown if ever smoked Tobacco Type: Cigarettes and Cigars Second Hand Exposure: No; Hx Substance Use: No Preferred Language: Citizen Of [place] Communication Ability: Effective Burrer Hand Required: No Beliefs That Will Affect Care: None marital status: Current Living Situation: [facility] Current Living Situation Comment: [facility] (for rehab per patient) current occupational status: employed and retired current occupation: [employer] How many Children do You have: 2 Feels Safe at Home: Yes Dental Care, Regularly: No Physical Activity Frequency: Does not Exercise Assistive Devices: None Review of Systems Review of Systems: Unobtainable due to cognitive status Physical Exam Constitutional: + ill appearing and + frail appearing; no acute distress Neck: normal visual inspection Respiratory: Auscultation: + rales (BL rales L>R); no rhonchi and no wheezes Cardiovascular: Rate/Rhythm: + tachycardic and + irregularly irregular Heart Sounds: normal S1 and normal S2; no murmur Vessels: no JVD Gastrointestinal (Abdomen): normal bowel sounds, soft, nontender, no hepat osplenomegaly Skin: no rashes, warm and dry Neurologic: PERRL, EOMI, accommodation nl, no face palsy, no dysarthria Psychiatric: Orientation: alert and oriented to person; + not oriented to place and + not oriented to time Motor Behavior: n tremor Speech: normal rate/rhythm/volume of speech Results & Data ([facility]) Vital Signs (Past 12 Hours) Vital Signs Temp Pulse BP Pulse Ox Pulse Ox 10/23/21 03:15 36.9 C 126 H 91/67 L 89 L 10/23/21 03:01 101 H 98/69 L 88 L 10/23/21 02:45 114 H 83/71 L 90 10/23/21 02:31 99 H 94/66 L 90 10/23/21 02:15 125 H 111/65 89 L 10/23/21 02:00 110 H 94/68 L 90 90 10/23/21 01:46 116 H 86/71 L 90 10/23/21 01:30 113 H 107/61 90 10/23/21 01:15 115 H 94/69 L 90 10/23/21 01:00 109 H 98/79 L 89 L 10/23/21 00:47 112 H 109/69 90 10/23/21 00:15 114 H 108/76 91 10/23/21 00:00 36.8 C 112 H 88/64 L 91 10/22/21 23:45 104 H 102/56 L 91 10/22/21 23:30 96 H 85/64 L 90 10/22/21 23:25 117 H 10/22/21 23:15 37.1 C 109 H 91/74 L 91 10/22/21 23:01 102 H 98/73 L 91 10/22/21 22:45 109 H 82/63 L 91 10/22/21 22:30 101 H 100/59 L 91 10/22/21 22:15 109 H 95/75 L 88 L 10/22/21 22:02 88 L 10/22/21 21:45 119 H 122/76 88 L 10/22/21 21:30 110 H 103/74 91 10/22/21 21:15 110 H 109/67 90 Laboratory Results Cardiac Enzymes 10/22/21 10/23/21 Range/Units 12:38 03:06 AST 31 23 (13-39) U/L Troponin I High Sens 195.0 H* D (0-20) pg/ml Coagulation 10/22/21 10/23/21 10/23/21 Range/Units 17:03 03:06 10:52 APTT 30.2 35.7 H 39.5 H (21.0-31.0) Seconds CBC 10/23/21 Range/Units 03:06 WBC 13.21 H (4.8-10.8) K/uL RBC 3.97 L (4.7-6.1) M/uL Hgb 12.7 L (14.0-18.0) g/dL Hct 37.4 L (42-52) % Plt Count 85 L (130-400) K/uL Neut # (Auto) 12.11 H (1.4-6.5) K/uL Lymph # (Auto) 0.53 L (1.2-3.4) K/uL [place] # (Auto) 0.46 (0.11-0.59) K/uL Eos # (Auto) 0.05 (0-0.5) K/uL Baso # (Auto) 0.00 (0-0.2) K/uL Comprehensive Metabolic Panel 10/22/21 10/23/21 Range/Units 12:38 03:06 Sodium 142 139 (136-145) mmol/L Potassium 3.4 L 4.2 D (3.5-5.1) mmol/L Chloride 111 H 110 H (98-107) mmol/L Carbon Dioxide 25 23 (21-32) mmol/L BUN 39 H 33 H (6-23) mg/dl Creatinine 1.46 H 1.13 D (0.6-1.4) mg/dl Glucose 90 86 (70-99(Fasting)) mg/dl Calcium 8.1 L 8.3 L (8.5-10.1) mg/dl Direct Bilirubin 0.2 (0-0.2) mg/dl AST 31 23 (13-39) U/L ALT 30 29 (7-52) U/L Alkaline Phosphatase 75 81 (34-104) U/L Total Protein 4.6 L 4.6 L (6.0-8.3) gm/dl Albumin 2.7 L 2.7 L (3.4-5.0) gm/dl Intake and Output 10/22/21 10/23/21 10/23/21 22:59 06:59 14:59 Intake Total 971.05 / 2515.583 237.033 / 2515.583 58.333 / 58.333 Output Total 1100 / 1251 151 / 1251 Balance -128.95 / 1264.583 86.033 / 1264.583 58.333 / 58.333 Intake: IV 371.05 / 1915.583 237.033 / 1915.583 58.333 / 58.333 Heparin Sodium/Dextrose 25,000 11.05 / 143.083 132.033 / 143.083 58.333 / 58.333 units In 500 ml @ 1,000 UNITS/ HR 20 mls/hr IV .Q24H [facility] Rx#: [id number] Potassium Phosphate 15 mmol In 255 / 255 Dextrose 5% 250 ml @ 88 mls/hr IV NOW ONE Rx#:[id number] levETIRAcetam 500 mg In 0.9 % 105 / 210 105 / 210 Sodium Chloride 100 ml @ 420 mls/hr IV Q12H [facility] Rx#:[id number] Oral 600 / 600 Output: Urine 650 / 650 Urine Amount (Catheter) 450 / 600 150 / 600 Campos/Indwelling 450 / 600 150 / 600 # Bowel Movements Other: Weight 81 kg Weight Measurement Method Built in [facility]
[2021-10-23] MEDS: MIDODRINE HCL 2.5 MG TAB PO SCH ×3 (09:42→17:48)
[2021-10-23] MEDS: PANTOprazole 40 MG in SYRINGE 0 ML IV SCH ×2 (09:43→23:15)
[2021-10-23] MEDS: POT PHOSPHATE MONOBASIC W/ SOD TAB PO SCH ×4 (09:44→23:16)
[2021-10-23] MEDS: MULTIVITAMIN TAB PO SCH (09:44)
[2021-10-23] MEDS: rOPINIRole HCL 0.25 MG TABLET PO SCH ×4 (09:46→23:14)
[2021-10-23] MEDS: THIAMINE HCL 100 MG TAB PO SCH (09:47)
[2021-10-23] MEDS: METOPROLOL TARTRATE 25 MG TAB PO SCH ×2 (10:03→23:15)
[2021-10-23 11:29] LABS: Partial Thromboplastin Ratio 1.4; Partial Thromboplastin Time 39.5 Seconds (21.0-31.0)
[2021-10-23] MEDS: cefTRIAXone SODIUM 2,000 MG in DEXTROSE 5% 50 ML IV SCH (13:21)
--- NOTE | 2021-10-23 16:16 | Hospitalist Progress Note ---
Date of Service October 23, 2021 Assessment & Plan (1) Severe sepsis: Plan: 71-year-old male w/ PMH of hyperlipidemia, COPD, history of masses in upper lobe of left lung, history of CVA, left hemiplegia mostly bedbound, history of dysarthria on mechanical soft diet and nectar thick liquids as per the snf, history of atrial fibrillation on eliquis, history of systolic CHF, history of pulmonary embolism, depression, pulmonary hypertension, hypertension, protein calorie malnutrition, history of GI bleed, history of tubular adenoma of small intestine, diverticulosis, BPH, kidney stones, osteoporosis, contraction of the muscle of the left lower extremity, partial complex seizures, CAD status post stent placement, history of tobacco abuse, currently at [facility], mostly bedbound, comes 10/21 because the patient was vomiting since 1 day [employer] x several episodes. His abdominal x-ray showed ileus. As he was not getting better, he was not feeling good, he was transferred to the hospital. He was hypoxic. Initially he was only 85%, he was placed on high-flow oxygen. Initial BP was soft, and also spiked temperature on the night of presentation. He is being managed for the following: #. Septic shock requiring pressors : off of pressors 2:30 AM on 10/22/2021. #. Severe sepsis POA 06/13 below #. Aspiration pneumonia - had vomiting [employer]. Admitting CXR reviewed. Admitting Chest CT w/ centrilobular emphysematous changes throughout both lungs. LLL pna. #. UTI #. Metabolic encephalopathy: Per snf, he is generally oriented. Currently lethargic, Oxself. Patient presented with severe sepsis likely secondary to aspiration pneumonitis versus UTI After admission, blood pressure dropped and was treated w/ IVF and in the ICU with pressors, off of pressors 2:30 AM on 10/22/2021. Patient was empirically started on meropenem and vancomycin on 10/21. Patient has history of ESBL UTI in the past. Speech evaluated 10/22, appreciate recommendation. 10/20 blood culture matt sensitive E. coli bacteremia 10/20 urine culture: E. coli pansensitive Repeat blood culture 10/22, no growth so far, follow-up final results. WBC downtrending, temperatureafebrile last 24 hours. Meropenem 10/21 and vancomycin 10/21 --> vancomycin dropped 10/22, Rocephin in place of meropenem 10/23 On midodrine at very low dose 10/22. Consider discontinuing once blood pressure improves with improving infection. Urology on board, no plan for intervention, appreciate recommendation. #. KAITY -resolved Baseline creatinine around 1 Admitting creatinine of 2.2, likely prerenal from septic shock, resolved, follow BMP as needed BUN trending down. #. Elevated troponin, likely demand ischemia Likely demand ischemia secondary to septic shock, troponin trending down. Patient with no chest pain. Continue to monitor over telemetry. #. Questionable GI bleed: Concern for coffee-ground emesis while the patient was in route by ambulance. Per Nursin home, the vomitus was brown. Hemooccult was positive in the ER. Admitting CTAP s/o ileus vs gastroenteritis, no SBO. Gi evaluated, on iv PPI BID. Hb stable. #. History of atrial fibrillation Patient on Eliquis, amiodarone and metoprolol at home Converted to A. fib RVR at 10:29 AM on 10/22/2021 Electrolytes, EKG, troponin sent 10/22 and reviewed. TSH normal. Monitor and replete electrolytes. Continue to monitor hemoglobin Low dose heparin drip 10/22, pt on iv ppi bid per GI. Cardiology on board. Amiodarone was started, blood pressure soft, start metoprolol as able. Likely will improve with improvement of his infection, continue to monitor over telemetry. #. 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 Monitor for volume overload. PE: On Eliquis at home, currently held. A. fib: On metoprolol and amiodarone, continue as able, watch for hypotension. Eliquis on hold. BPH, GERD, RLS, HLD and HTN: Resume home meds Acute ischemic right middle cerebral artery stroke, currently bedbound. Plavix on hold, resume when GI bleed resolved. #. Deep venous thrombosis prophylaxis: low dose heparin drip #. DNR/DNI. Admission and Anticipated Discharge Date Admission Date: October 21, 2021 Subjective Patient seen and examined at bedside as a follow-up of severe sepsis with shock possibly secondary to aspiration pneumonia versus UTI, and E.coli bacteremia. Patient was lying in bed, on 3 L nasal cannula oxygen, NAD, is lethargic, oriented x self, left extremities with residual weakness. DC IVF, pt on diet per speech recs. Patient denies any pain or discomfort.ROS limited due to patient's cognition status. Discussed with urology, no plan for intervention, hence resumed diet. Physical Exam Physical Exam: GENERAL: Lethargic and oriented x self. NAD, on 3L NC O2. HEENT: No pallor, no icterus. Pupils equal, round and reactive to light. Oral mucosa moist. NECK: No JVD, no neck masses. HEART: S1 and S2 heard. irregular rate and rhythm. No murmur, no gallop. RESPIRATORY SYSTEM: Normal AP diameter. No accessory muscle use. No wheezing, b/l crackles improving ABDOMEN: Soft, bowel sounds present, nontender, no distention. CENTRAL NERVOUS SYSTEM: No facial droop. Speech is clear. Obeys simple commands. Left extremities w/ residual weakness/paralysis. Rt extremities at baseline. EXTREMITIES: no ble edema, no erythema seen. UC w/ yellow urine collection noted. Results & Data Results & Data ([facility]) Vital Signs (Past 12 Hours) Vital Signs Temp Pulse Resp BP Pulse Ox 10/23/21 15:11 37.3 C 114 H 16 101/65 96 10/23/21 11:26 37.8 C H 113 H 22 99/76 L 93
[2021-10-23] MEDS: TAMSULOSIN HCL 0.4 MG CAP PO SCH (17:11)
[2021-10-23 19:54] LABS: Partial Thromboplastin Ratio > 5.1
[2021-10-23 20:04] LABS: Partial Thromboplastin Time > 139.0 Seconds (21.0-31.0)
[2021-10-23 21:35] LABS: Partial Thromboplastin Ratio 1.1; Partial Thromboplastin Time 29.5 Seconds (21.0-31.0)
[2021-10-24 00:25] LABS: Partial Thromboplastin Ratio 0.9; Partial Thromboplastin Time 25.5 Seconds (21.0-31.0)
[2021-10-24] MEDS: HEPARIN SODIUM/DEXTROSE 25,000 UNITS/500 ML BAG IV SCH ×2 (00:52→23:28)
[2021-10-24] MEDS: levETIRAcetam 500 MG in 0.9 % SODIUM CHLORIDE 100 ML IV SCH ×2 (05:48→17:10)
--- NOTE | 2021-10-24 07:33 | Cardiology Progress Note ---
Date of Service October 24, 2021 Assessment & Plan (1) Sepsis: (2) Elevated troponin: (3) Atrial fibrillation with RVR: (4) HFrEF (heart failure with reduced ejection fraction): (5) Ischemic heart disease: (6) CVA (cerebral vascular accident): (7) History of pulmonary embolism: Plan: Medically complex 71-year-old male. Currently being treated for sepsis (due to aspiration pneumonitis vs UTI as source). Carries a history of paroxysmal atrial fibrillation normally well controlled with amiodarone and metoprolol and anticoagulated on Eliquis. Recurrence of atrial fibrillation in the setting of acute illness and pressor use. Eliquis has been held due to questionable GI bleed, patient treated conservatively with IV Protonix and is now on heparin drip. Heart rates averaging in the 100-120s (atrial fib/flutter). Amiodarone has since been restarted. 1. As sepsis is treated heart rate should continue to improve. May spontaneously convert to sinus rhythm as clinical condition improves. Continue amiodarone 200 mg 3 times daily and metoprolol tartrate at 12.5 mg twice daily. Monitor closely for hypotension. 2. Continue with IV heparin without interruption if possible. 3. Continue to follow renal function and electrolytes. Replete electrolytes for goal potassium of 4.0 and a magnesium of 2.0 4. Elevated troponin likely related to demand ischemia secondary to septic shock. Troponin level trending down. Patient without chest pain. Recommend continuing to monitor on telemetry. Case discussed with Dr. Yousif- will follow. Admission and Anticipated Discharge Date Admission Date: October 21, 2021 Supervising Physician Co-Signing Physician Notes Patient was seen and personally examined. Currently being treated for E. coli sepsis complicated by recurrent atrial fibrillation with elevated ventricular response. Rates are trending slightly lower and blood pressure improving after treatment. Will increase beta-blockade with metoprolol succinate 25 mg twice per day. Continue oral amiodarone. Continue anticoagulation as above Subjective Medically complex 71-year-old male with a past medical history of ischemic cardiomyopathy, mildly reduced LVEF of 40 to 45%, paroxysmal atrial fibrillation, history of right CVA with dysarthria and left hemiplegia, and history of PE. Initially admitted due to sepsis secondary to aspiration pneumonitis versus UTI source. Patient required IV fluids and pressor support due to hypotension. Dur ing the use of pressors patient lapsed into atrial fibrillation. During this time amiodarone and metoprolol was on hold. Amiodarone restarted on 10/22, increased to 200 mg 3 times daily on 10/23 Metoprolol tartrate 12.5 mg twice daily restarted on 10/23 Patient anticoagulated with a heparin drip. Tele: Atrial fibrillation with PVCs 100s to 120s Chart and telemetry reviewed. Patient seen and examined at bedside. Upon entrance into the room patient resting comfortably in bed. Review of systems limited due to cognitive status. Per nursing staff patient has been calm much more confused. Review of Systems Review of Systems: Unobtainable due to cognitive status Physical Exam Constitutional: + ill appearing and + frail appearing; no acute distress Respiratory: normal respiratory effort; no cough Auscultation: + diminished lung sounds and + rales (L>R); no rhonchi and no wheezes Cardiovascular: Rate/Rhythm: + tachycardic and + irregularly irregular Heart Sounds: normal S1 and normal S2; no murmur Vessels: no JVD Gastrointestinal (Abdomen): normal bowel sounds, soft, nontender, no hepatosplenomegaly Skin: no rashes, warm and dry Neurologic: + confused Speech / Cognition: + abnormal speech Psychiatric: Orientation: oriented to person; + not oriented to place and + not oriented to time Motor Behavior: n tremor Results & Data ([facility]) Vital Signs (Past 12 Hours) Vital Signs Temp Pulse Resp BP Pulse Ox Pulse Ox 10/24/21 03:00 37.5 C 100 H 20 97/69 L 90 10/24/21 02:00 94 10/24/21 00:10 113 H 10/24/21 00:00 107 H 106/80 93 10/23/21 23:46 121 H 119/90 87 L 10/23/21 23:30 128 H 106/82 89 L 10/23/21 23:16 114 H 124/91 93 10/23/21 23:01 117 H 116/89 92 10/23/21 23:00 37.3 C 111 H 20 116/91 93 10/23/21 22:45 116 H 97/78 L 92 10/23/21 22:30 108 H 113/90 93 10/23/21 22:16 115 H 94 10/23/21 22:01 116 H 102/68 94 10/23/21 22:00 106 H 94 10/23/21 21:45 117 H 105/91 94 10/23/21 21:00 95/81 L 10/23/21 20:45 105 H 100/82 98 10/23/21 20:31 100 H 105/77 95 10/23/21 20:16 103 H 96 10/23/21 20:01 111 H 112/90 92 10/23/21 20:00 122 H 92 10/23/21 19:45 112 H 103/75 91 10/23/21 19:30 107 H 83/70 L 93 Laboratory Results Coagulation 10/23/21 10/23/21 10/23/21 Range/Units 10:52 19:21 21:14 APTT 39.5 H > 139.0 H* 29.5 (21.0-31.0) Seconds 10/23/21 10/24/21 Range/Units 23:44 07:09 APTT 25.5 35.9 H (21.0-31.0) Seconds CBC 10/24/21 Range/Units 07:09 WBC 11.05 H (4.8-10.8) K/uL RBC 3.95 L (4.7-6.1) M/uL Hgb 12.2 L (14.0-18.0) g/dL Hct 36.8 L (42-52) % Plt Count 113 L (130-400) K/uL Comprehensive Metabolic Panel 10/24/21 Range/Units 07:09 Sodium 141 (136-145) mmol/L Potassium 3.7 (3.5-5.1) mmol/L Chloride 110 H (98-107) mmol/L Carbon Dioxide 26 (21-32) mmol/L BUN 26 H (6-23) mg/dl Creatinine 1.04 (0.6-1.4) mg/dl Glucose 102 H (70-99(Fasting)) mg/dl Calcium 8.0 L (8.5-10.1) mg/dl Intake and Output 10/23/21 10/24/21 10/24/21 22:59 06:59 14:59 Intake Total 245.0 / 599.666 105 / 599.666 182.7 / 182.7 Output Total 651 / 1052 401 / 1052 Balance -406.0 / -452.334 -296 / -452.334 182.7 / 182.7 Intake: IV 245.0 / 599.666 105 / 599.666 182.7 / 182.7 Heparin Sodium/Dextrose 25,000 140.0 / 319.666 0 / 319.666 182.7 / 182.7 units In 500 ml @ 1,050 UNITS/ HR 21 mls/hr IV .[id number] [facility] Rx #:[id number] levETIRAcetam 500 mg In 0.9 % 105 / 210 105 / 210 Sodium Chloride 100 ml @ 420 mls/hr IV Q12H [facility] Rx#:[id number] Output: Urine Amount (Catheter) 650 / 1050 400 / 1050 Campos/Indwelling 650 / 1050 400 / 1050 # Bowel Movements 1 / 2 1 / 2 Other: Weight 80 kg Weight Measurement Method Built in [facility]
[2021-10-24 08:00] LABS: Partial Thromboplastin Ratio 1.3; Partial Thromboplastin Time 35.9 Seconds (21.0-31.0)
[2021-10-24 08:04] LABS: Creatinine Clr Calc Pharmacy 71.6 ml/min; Est GFR (African American) 82.2 ml/min; Est GFR (Non-African American) 70.9 ml/min; Magnesium 1.9 mg/dl (1.7-2.4); Phosphorus 2.6 mg/dl (2.5-4.9); Potassium 3.7 mmol/L (3.5-5.1)
[2021-10-24 08:06] LABS: Hematocrit (blood only) 36.8 % (42-52); Hemoglobin 12.2 g/dL (14.0-18.0); Mean Corpuscular Hemoglobin 30.9 pg (25-34); Mean Corpuscular Hgb Conc 33.2 g/dL (32-36); Mean Corpuscular Volume 93.2 fL (80-100); Mean Platelet Volume 12.1 fL (7.4-10.4); Platelet Count 113 K/uL (130-400); RDW Coefficient of Variation 14.4 % (11.5-14.5); RDW Standard Deviation 49.8 fL (36.4-46.3); Red Blood Count 3.95 M/uL (4.7-6.1); White Blood Count 11.05 K/uL (4.8-10.8)
[2021-10-24] MEDS: MULTIVITAMIN TAB PO SCH (09:43)
[2021-10-24] MEDS: MIDODRINE HCL 2.5 MG TAB PO SCH ×3 (09:43→17:08)
[2021-10-24] MEDS: ATORVASTATIN 40 MG TAB PO SCH (09:44)
[2021-10-24] MEDS: METOPROLOL TARTRATE 25 MG TAB PO SCH (09:44)
[2021-10-24] MEDS ORDERED: HEPARIN SOD (PORCINE) 1000 UNIT/ML IV ONE (09:45)
[2021-10-24] MEDS: FINASTERIDE 5 MG TAB PO SCH (09:45)
[2021-10-24] MEDS: AMIODARONE 200 MG TAB PO SCH ×3 (09:46→17:08)
[2021-10-24] MEDS: ADVANCED PROBIOTIC 1250 MG CAPSULE PO SCH (09:46)
[2021-10-24] MEDS: POT PHOSPHATE MONOBASIC W/ SOD TAB PO SCH ×4 (09:47→19:58)
[2021-10-24] MEDS: GABAPENTIN 100 MG CAP PO SCH ×3 (09:47→19:57)
[2021-10-24] MEDS: FLUoxetine HCL 10 MG CAP PO SCH (09:48)
[2021-10-24] MEDS: rOPINIRole HCL 0.25 MG TABLET PO SCH ×4 (09:49→19:56)
[2021-10-24] MEDS: PANTOprazole 40 MG in SYRINGE 0 ML IV SCH ×2 (09:50→19:58)
[2021-10-24] MEDS: cefTRIAXone SODIUM 2,000 MG in DEXTROSE 5% 50 ML IV SCH (09:52)
[2021-10-24] MEDS: THIAMINE HCL 100 MG TAB PO SCH (10:14)
--- NOTE | 2021-10-24 13:27 | Urology Progress Note ---
Date of Service October 24, 2021 Assessment & Plan (1) Severe sepsis: (2) Bladder outlet obstruction: Plan: 71yo M with multiple medical problems admitted with sepsis in the setting of UTI and aspiration pneumonia. - Temp 37.6C this morning, normotensive, but tachycardic - Labs reviewed - White count improving, Creatinine normal - Urine and blood cultures with E. coli, repeat blood culture preliminary no growth x48 hours - on IV Ceftriaxone. - Campos catheter intact, draining clear yellow urine. - No acute intervention planned at this time. - Maintain Campos catheter. - Continue supportive care, antibiotic therapy, and close monitoring. - Will continue to follow. Admission and Anticipated Discharge Date Admission Date: October 21, 2021 Subjective Pt examined at bedside this afternoon. Awake, resting in bed on arrival. No acute distress. Answered some questions, but limited responses. States he feels "lousy." Reports he has no appetite. Denies abdominal/flank pain. Campos catheter intact, draining clear yellow urine. Denies fever or chills. Denies nausea or vomiting. Review of Systems Constitutional: as per Subjective / HPI Cardiovascular: no chest pain and no dyspnea Gastrointestinal: as per Subjective / HPI Genitourinary: + as per Subjective / HPI Physical Exam Constitutional: + ill appearing and + frail appearing; no acute distress Respiratory: no respiratory distress and no labored breathing On O2 NC Gastrointestinal (Abdomen): Percussion/Palpation: abdomen soft; abdomen nontender and no guarding Psychiatric: Orientation: alert and oriented to person Genitourinary: no CVA tenderness Campos catheter intact Results & Data ([facility]) Vital Signs (Past 12 Hours) Vital Signs Temp Pulse Pulse Resp BP BP Pulse Ox 10/24/21 11:19 37.6 C H 123 H 20 114/67 93 10/24/21 07:39 37.4 C 110 H 16 106/73 93 10/24/21 03:00 37.5 C 100 H 20 97/69 L 90 10/24/21 02:00 Pulse Ox 10/24/21 11:19 10/24/21 07:39 10/24/21 03:00 10/24/21 02:00 94 PG Care Time/CCT Total # of Minutes Spent Total Time Spent with Patient: Total time spent is greater than 50% in coordination of care (as documented) at patient's floor/unit and/or counseling patient: Coding Level of Care Code 34689 Subseq Hosp Care Lvl 2 Diagnoses Severe sepsis A41.9; R65.20 Bladder outlet obstruction N32.0
[2021-10-24] MEDS: Heparin IV Adult Wt-Based Low-Dose *NO* Bolus Protocol IV SCH ×2 (16:27→16:28)
[2021-10-24 16:41] LABS: Partial Thromboplastin Ratio 1.5; Partial Thromboplastin Time 41.6 Seconds (21.0-31.0)
--- NOTE | 2021-10-24 17:07 | Hospitalist Progress Note ---
Date of Service October 24, 2021 Assessment & Plan (1) Severe sepsis: Plan: 71-year-old male w/ PMH of hyperlipidemia, COPD, history of masses in upper lobe of left lung, history of CVA, left hemiplegia mostly bedbound, history of dysarthria on mechanical soft diet and nectar thick liquids as per the half-way, history of atrial fibrillation on eliquis, history of systolic CHF, history of pulmonary embolism, depression, pulmonary hypertension, hypertension, protein calorie malnutrition, history of GI bleed, history of tubular adenoma of small intestine, diverticulosis, BPH, kidney stones, osteoporosis, contraction of the muscle of the left lower extremity, partial complex seizures, CAD status post stent placement, history of tobacco abuse, currently at [facility], mostly bedbound, comes 10/21 because 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 His abdominal x-ray showed ileus. As he was not getting better, he was not feeling good, he was transferred to the hospital. He was hypoxic. Initially he was only 85%, he was placed on high-flow oxygen. Initial BP was soft, and also spiked temperature on the night of presentation. He is being managed for the following: #. Septic shock requiring pressors : off of pressors 2:30 AM on 10/22/2021. #. Severe sepsis POA 06/13 below #. 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 Admitting CXR reviewed. Admitting Chest CT w/ centrilobular emphysematous changes throughout both lungs. LLL pna. #. UTI #. Metabolic encephalopathy: Per half-way, he is generally oriented. Currently lethargic, Oriented x self. Eating better. Patient presented with severe sepsis likely secondary to aspiration pneumonitis versus UTI After admission, blood pressure dropped and was treated w/ IVF and in the ICU with pressors, off of pressors 2:30 AM on 10/22/2021. Patient was empirically started on meropenem and vancomycin on 10/21. Patient has history of ESBL UTI in the past. Speech evaluated 10/22, appreciate recommendation. 10/20 blood culture matt sensitive E. coli bacteremia 10/20 urine culture: E. coli pansensitive Repeat blood culture 10/22, no growth so far, follow-up final results. WBC downtrending, temperature better controlled Meropenem 10/21 and vancomycin 10/21 --> vancomycin dropped 10/22, Rocephin in place of meropenem 10/23 On midodrine at very low dose 10/22. Consider discontinuing once blood pressure improves with improving infection. Urology on board, no plan for intervention, appreciate recommendation. #. KAITY -resolved Baseline creatinine around 1 Admitting creatinine of 2.2, likely prerenal from septic shock, resolved, follow BMP as needed BUN trending down. #. Elevated troponin, likely demand ischemia Likely demand ischemia secondary to septic shock, troponin trending down. Patient with no chest pain. Continue to monitor over telemetry. #. Questionable GI bleed: Concern for coffee-ground emesis while the patient was in route by ambulance. Per Nursin home, the vomitus was brown. Hemooccult was positive in the ER. Admitting CTAP s/o ileus vs gastroenteritis, no SBO. Gi evaluated, on iv PPI BID. Hb stable. #. History of atrial fibrillation Patient on Eliquis, amiodarone and metoprolol at home Converted to A. fib RVR at 10:29 AM on 10/22/2021 -----> continues to be in afib Electrolytes, EKG, troponin sent 10/22 and reviewed. TSH normal. Monitor and replete electrolytes. Continue to monitor hemoglobin Low dose heparin drip 10/22, pt on iv ppi bid per GI. Cardiology on board. Amiodarone was started, blood pressure soft, start metoprolol as able. Likely will improve with improvement of his infection, continue to monitor over telemetry. #. 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 Monitor for volume overload. PE: On Eliquis at home, currently held. A. fib: On metoprolol and amiodarone, continue as able, watch for hypotension. Eliquis on hold. BPH, GERD, RLS, HLD and HTN: Resume home meds Acute ischemic right middle cerebral artery stroke, currently bedbound. Plavix on hold, resume when GI bleed resolved. #. Deep venous thrombosis prophylaxis: low dose heparin drip #. DNR/DNI. Admission and Anticipated Discharge Date Admission Date: October 21, 2021 Subjective Patient seen and examined at bedside as a follow-up of severe sepsis with shock possibly secondary to aspiration pneumonia versus UTI, and E.coli bacteremia. Patient was lying in bed, on 3 L nasal cannula oxygen, NAD, is lethargic, oriented x self, left extremities with residual weakness. Pt on diet per speech recs. Per RN, patient is eating okay and moving bowels okay. Patient was agitated and threw away his food tray in the morning per RN. Patient denies any pain or discomfort.ROS limited due to patient's cognition status. Physical Exam Physical Exam: GENERAL: Lethargic and oriented x self. NAD, on 3L NC O2. HEENT: No pallor, no icterus. Pupils equal, round and reactive to light. Oral mucosa moist. NECK: No JVD, no neck masses. HEART: S1 and S2 heard. irregular rate and rhythm. No murmur, no gallop. RESPIRATORY SYSTEM: Normal AP diameter. No accessory muscle use. No wheezing, b/b rales ABDOMEN: Soft, bowel sounds present, nontender, no distention. CENTRAL NERVOUS SYSTEM: No facial droop. Speech is clear. Obeys simple c ommands. Left extremities w/ residual weakness/paralysis. Rt extremities at baseline. EXTREMITIES: no ble edema, no erythema seen. UC w/ yellow urine collection noted. Results & Data Results & Data ([facility]) Vital Signs (Past 12 Hours) Vital Signs Temp Pulse Pulse Resp BP Pulse Ox 10/24/21 15:21 37.7 C H 108 H 20 129/81 94 10/24/21 15:13 121 H 10/24/21 11:19 37.6 C H 123 H 20 114/67 93 10/24/21 07:39 37.4 C 110 H 16 106/73 93
[2021-10-24] MEDS: TAMSULOSIN HCL 0.4 MG CAP PO SCH (17:08)
[2021-10-24] MEDS: METOPROLOL SUCC 25MG EXT REL TAB PO SCH (19:58)
[2021-10-24 23:31] LABS: Partial Thromboplastin Ratio 1.5; Partial Thromboplastin Time 41.3 Seconds (21.0-31.0)
[2021-10-25] MEDS: levETIRAcetam 500 MG in 0.9 % SODIUM CHLORIDE 100 ML IV SCH ×2 (05:21→17:12)
[2021-10-25 06:23] LABS: Hematocrit (blood only) 34.1 % (42-52); Hemoglobin 11.8 g/dL (14.0-18.0); Mean Corpuscular Hemoglobin 32.4 pg (25-34); Mean Corpuscular Hgb Conc 34.6 g/dL (32-36); Mean Corpuscular Volume 93.7 fL (80-100); Mean Platelet Volume 12.6 fL (7.4-10.4); Platelet Count 106 K/uL (130-400); RDW Coefficient of Variation 14.4 % (11.5-14.5); RDW Standard Deviation 49.6 fL (36.4-46.3); Red Blood Count 3.64 M/uL (4.7-6.1); White Blood Count 7.82 K/uL (4.8-10.8)
[2021-10-25 06:23] LABS: Partial Thromboplastin Ratio 1.6; Partial Thromboplastin Time 43.5 Seconds (21.0-31.0)
[2021-10-25 06:38] LABS: BUN Creatinine Ratio 21.2 (10-20); Creatinine Clr Calc Pharmacy 68.6 ml/min; Est GFR (African American) 82.2 ml/min; Est GFR (Non-African American) 70.9 ml/min; Magnesium 1.8 mg/dl (1.7-2.4); Phosphorus 2.7 mg/dl (2.5-4.9); Potassium 3.5 mmol/L (3.5-5.1)
[2021-10-25] MEDS: Heparin IV Adult Wt-Based Low-Dose *NO* Bolus Protocol IV SCH ×2 (07:34→07:35)
--- NOTE | 2021-10-25 07:48 | Cardiology Progress Note ---
Date of Service October 25, 2021 Assessment & Plan (1) Sepsis: (2) Elevated troponin: (3) Atrial fibrillation with RVR: (4) HFrEF (heart failure with reduced ejection fraction): (5) Ischemic heart disease: (6) CVA (cerebral vascular accident): (7) History of pulmonary embolism: Plan: Medically complex 71-year-old male. Currently being treated for sepsis (due to aspiration pneumonitis vs UTI as source). Carries a history of paroxysmal atrial fibrillation normally well controlled with amiodarone and metoprolol and anticoagulated on Eliquis. Recurrence of atrial fibrillation in the setting of acute illness and pressor use. Eliquis has been held due to questionable GI bleed, patient treated conservatively with IV Protonix and is now on heparin drip. Heart rates slowly improving, averaging in the 90-100s (atrial fib/flutter). Amiodarone has since been restarted. 1. As sepsis is treated heart rate should continue to improve. May spontaneously convert to sinus rhythm as clinical condition improves. Continue amiodarone 200 mg 3 times daily and metoprolol tartrate at 25 mg twice daily. Monitor closely for hypotension. Should BP remain stable there is room to increase beta pasquale. 2. Continue with IV heparin without interruption if possible. 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 Continue to follow renal function and electrolytes. Replete electrolytes for goal potassium of 4.0 and a magnesium of 2.0 Potassium of 3.5 this am repleted by primary team. 4. Elevated troponin likely related to demand ischemia secondary to septic shock. Troponin level trending down. Patient without chest pain. Recommend continuing to monitor on telemetry. Case discussed with Dr. Yousif- will follow. Admission and Anticipated Discharge Date Admission Date: October 21, 2021 Supervising Physician Co-Signing Physician Notes Patient seen and personally examined. Heart rates are trending slightly towards better control. Would not increase medical therapies further at this time given relatively soft blood pressure still. Subjective Medically complex 71-year-old male with a past medical history of ischemic cardiomyopathy, mildly reduced LVEF of 40 to 45%, paroxysmal atrial fibrillation , history of right CVA with dysarthria and left hemiplegia, and history of PE. Initially admitted due to sepsis secondary to aspiration pneumonitis versus UTI source. Patient required IV fluids and pressor support due to hypotension. During the use of pressors patient lapsed into atrial fibrillation. During this time amiodarone and metoprolol was on hold. Amiodarone restarted on 10/22, increased to 200 mg 3 times daily on 10/23 Metoprolol tartrate 12.5 mg twice daily restarted on 10/23, increased to 25 mg twice daily on 10/24 Patient anticoagulated with a heparin drip. Tele: Atrial fibrillation 90-100s Chart and telemetry reviewed. Patient seen and examined at bedside. Upon entrance into the room patient resting comfortably in bed, asleep. Patient woke up easily but drifted off to sleep after each question. Review of systems limited due to cognitive status. Review of Systems Review of Systems: Unobtainable due to cognitive status Physical Exam Constitutional: + ill appearing and + frail appearing; no acute distress Neck: normal visual inspection Respiratory: normal respiratory effort; no cough Auscultation: + diminished lung sounds; no rales, no rhonchi and no wheezes Cardiovascular: Rate/Rhythm: + tachycardic and + irregularly irregular Heart Sounds: normal S1 and normal S2; no murmur Vessels: no JVD Gastrointestinal (Abdomen): normal bowel sounds, soft, nontender, no hepatosplenomegaly Skin: no rashes, warm and dry Neurologic: PERRL, EOMI, accommodation nl, no face palsy, no dysarthria + confused Speech / Cognition: + abnormal speech Psychiatric: Orientation: oriented to person; + not oriented to place and + not oriented to time Motor Behavior: n tremor Speech: normal rate/rhythm/volume of speech Results & Data ([facility]) Vital Signs (Past 12 Hours) Vital Signs Temp Pulse Resp BP Pulse Ox Pulse Ox 10/25/21 07:00 37.2 C 97 H 18 104/70 96 10/25/21 03:00 37.6 C H 106 H 16 138/86 96 10/25/21 02:00 92 10/24/21 23:44 103 H 10/24/21 23:30 93 H 117/81 94 10/24/21 23:15 111 H 125/73 96 10/24/21 23:06 117 H 108/71 92 10/24/21 23:05 80/58 L 91 10/24/21 23:00 37.9 C H 102 H 20 108/71 94 10/24/21 22:30 94 H 105/48 L 90 10/24/21 22:00 91 H 108/73 94 10/24/21 21:46 82 109/68 91 10/24/21 21:30 96 H 103/68 96 10/24/21 21:15 98 H 100/69 95 10/24/21 21:00 92 H 121/76 95 10/24/21 20:45 110 H 111/76 95 10/24/21 20:30 115 H 126/87 93 10/24/21 20:15 116 H 119/92 98 10/24/21 20:00 115 H 118/85 97 10/24/21 19:55 104 H 128/85 98 Laboratory Results Coagulation 10/24/21 10/24/21 10/24/21 Range/Units 07:09 15:58 23:07 APTT 35.9 H 41.6 H 41.3 H (21.0-31.0) Seconds 10/25/21 Range/Units 05:19 APTT 43.5 H (21.0-31.0) Seconds CBC 10/24/21 10/25/21 Range/Units 07:09 05:17 WBC 11.05 H 7.82 (4.8-10.8) K/uL RBC 3.95 L 3.64 L (4.7-6.1) M/uL Hgb 12.2 L 11.8 L (14.0-18.0) g/dL Hct 36.8 L 34.1 L (42-52) % Plt Count 113 L 106 L (130-400) K/uL Comprehensive Metabolic Panel 10/24/21 10/25/21 Range/Units 07:09 05:17 Sodium 141 142 (136-145) mmol/L Potassium 3.7 3.5 (3.5-5.1) mmol/L Chloride 110 H 110 H (98-107) mmol/L Carbon Dioxide 26 26 (21-32) mmol/L BUN 26 H 22 (6-23) mg/dl Creatinine 1.04 1.04 (0.6-1.4) mg/dl Glucose 102 H 115 H (70-99(Fasting)) mg/dl Calcium 8.0 L 8.0 L (8.5-10.1) mg/dl Intake and Output 10/24/21 10/25/21 10/25/21 22:59 06:59 14:59 Intake Total 697.300 / 1251.233 300.783 / 1251.233 0.45 / 0.45 Output Total 725 / 1076 351 / 1076 Balance -27.700 / 175.233 -50.217 / 175.233 0.45 / 0.45 Intake: IV 422.300 / 976.233 300.783 / 976.233 0.45 / 0.45 Heparin Sodium/Dextrose 25,000 317.300 / 696.233 195.783 / 696.233 0.45 / 0.45 units In 500 ml @ 1,300 UNITS/ HR 26 mls/hr IV .[id number] [facility] Rx #:[id number] Normosol-R 1,000 ml @ 125 mls/ 0 / 0 hr IV .Q8H [facility] Rx#:[id number] levETIRAcetam 500 mg In 0.9 % 105 / 210 105 / 210 Sodium Chloride 100 ml @ 420 mls/hr IV Q12H [facility] Rx#:[id number] Oral 275 / 275 Output: Urine Amount (Catheter) 725 / 1075 350 / 1075 Campos/Indwelling 725 / 1075 350 / 1075 # Bowel Movements Other: Weight 76.7 kg Weight Measurement Method Built in [facility]
[2021-10-25] MEDS ORDERED: POTASSIUM CHLORIDE CRTAB 20 MEQ TABCR PO STA (08:11)
[2021-10-25] MEDS: METOPROLOL SUCC 25MG EXT REL TAB PO SCH ×2 (09:19→20:13)
[2021-10-25] MEDS: GABAPENTIN 100 MG CAP PO SCH ×3 (09:20→20:12)
[2021-10-25] MEDS: rOPINIRole HCL 0.25 MG TABLET PO SCH ×4 (09:20→20:14)
[2021-10-25] MEDS: UMECLIDINIUM BROMIDE 62.5MCG/BLISTER 7 PUFFS/INHALER INH SCH (09:21)
[2021-10-25] MEDS: ADVANCED PROBIOTIC 1250 MG CAPSULE PO SCH (09:21)
[2021-10-25] MEDS: ATORVASTATIN 40 MG TAB PO SCH (09:21)
[2021-10-25] MEDS: AMIODARONE 200 MG TAB PO SCH ×3 (09:22→17:16)
[2021-10-25] MEDS: FLUoxetine HCL 10 MG CAP PO SCH (09:22)
[2021-10-25] MEDS: MULTIVITAMIN TAB PO SCH (09:22)
[2021-10-25] MEDS: THIAMINE HCL 100 MG TAB PO SCH (09:22)
[2021-10-25] MEDS: MIDODRINE HCL 2.5 MG TAB PO SCH ×3 (09:22→17:16)
[2021-10-25] MEDS: FINASTERIDE 5 MG TAB PO SCH (09:23)
[2021-10-25] MEDS: POT PHOSPHATE MONOBASIC W/ SOD TAB PO SCH ×4 (09:23→20:14)
[2021-10-25] MEDS: MAGNESIUM SULFATE / D5W 1 GM/100 ML BAG IV SCH ×2 (09:24→11:38)
[2021-10-25] MEDS: PANTOprazole 40 MG in SYRINGE 0 ML IV SCH ×2 (09:35→20:11)
[2021-10-25] MEDS: cefTRIAXone SODIUM 2,000 MG in DEXTROSE 5% 50 ML IV SCH (09:35)
--- NOTE | 2021-10-25 12:14 | Urology Progress Note ---
Date of Service October 25, 2021 Assessment & Plan (1) Severe sepsis: (2) Bladder outlet obstruction: Plan: 71yo M with multiple medical problems admitted with sepsis in the setting of UTI and aspiration pneumonia. - Plan of care reviewed with Dr. Solano, on-call urologist. - Afebrile at present, normotensive, but tachycardic. - Labs reviewed - White count 7.82 today, Creatinine 1.04 - Urine and blood cultures with E. coli, repeat blood culture preliminary no g rowth x48 hours - on IV Ceftriaxone. - Campos catheter intact, draining clear yellow urine. - No acute intervention planned at this time. - Maintain Campos catheter. - Continue supportive care, antibiotic therapy, and close monitoring. - Will arrange outpatient follow-up with our service for voiding trial and continued care. - Urology will sign-off, please contact us with any further questions, concerns, or changes in patient status. Admission and Anticipated Discharge Date Admission Date: October 21, 2021 Subjective Pt examined at bedside this morning. Asleep on arrival, awakened to name. Answered some questions, but limited responses. Denies any pain or discomfort at present. Campos catheter intact, draining clear yellow urine. Review of Systems Constitutional: as per Subjective / HPI Genitourinary: + as per Subjective / HPI Physical Exam Constitutional: + ill appearing and + frail appearing; no acute distress Respiratory: no respiratory distress and no labored breathing Gastrointestinal (Abdomen): Percussion/Palpation: abdomen soft; abdomen nontender and no guarding Neurologic: awake Psychiatric: Orientation: oriented to person Genitourinary: Campos catheter intact Results & Data ([facility]) Vital Signs (Past 12 Hours) Vital Signs Temp Pulse Resp BP Pulse Ox Pulse Ox 10/25/21 11:10 36.6 C 93 H 20 103/65 97 10/25/21 10:30 99 H 10/25/21 07:00 37.2 C 97 H 18 104/70 96 10/25/21 03:00 37.6 C H 106 H 16 138/86 96 10/25/21 02:00 92 PG Care Time/CCT Total # of Minutes Spent Total Time Spent with Patient: Total time spent is greater than 50% in coordination of care (as documented) at patient's floor/unit and/or counseling patient: Coding Level of Care Code 83166 Subseq Hosp Care Lvl 2 Diagnoses Severe sepsis A41.9; R65.20 Bladder outlet obstruction N32.0
[2021-10-25 13:44] LABS: Partial Thromboplastin Ratio 1.6
--- NOTE | 2021-10-25 16:41 | Hospitalist Progress Note ---
Date of Service October 25, 2021 Assessment & Plan (1) Severe sepsis: Plan: 71-year-old male w/ PMH of hyperlipidemia, COPD, history of masses in upper lobe of left lung, history of CVA, left hemiplegia mostly bedbound, history of dysarthria on mechanical soft diet and nectar thick liquids as per the assisted, history of atrial fibrillation on eliquis, history of systolic CHF, history of pulmonary embolism, depression, pulmonary hypertension, hypertension, protein calorie malnutrition, history of GI bleed, history of tubular adenoma of small intestine, diverticulosis, BPH, kidney stones, osteoporosis, contraction of the muscle of the left lower extremity, partial complex seizures, CAD status post stent placement, history of tobacco abuse, currently at [facility], mostly bedbound, comes 10/21 because the patient was vomiting since 1 day RN DERMATOLOGY x several episodes. His abdominal x-ray showed ileus. As he was not getting better, he was not feeling good, he was transferred to the hospital. He was hypoxic. Initially he was only 85%, he was placed on high-flow oxygen. Initial BP was soft, and also spiked temperature on the night of presentation. He is being managed for the following: #. Septic shock requiring pressors : off of pressors 2:30 AM on 10/22/2021. #. Severe sepsis POA / below #. Aspiration pneumonia - had vomiting RN DERMATOLOGY. Admitting CXR reviewed. Admitting Chest CT w/ centrilobular emphysematous changes throughout both lungs. LLL pna. #. UTI #. Metabolic encephalopathy: Per assisted, he is generally oriented.Per family, he doesn't usu. eat much, just picks at things. Currently lethargic, Oriented x 1. Eating at [place]. Patient presented with severe sepsis likely secondary to aspiration pneumonitis versus UTI After admission, blood pressure dropped and was treated w/ IVF and in the ICU with pressors, off of pressors 2:30 AM on 10/22/2021. Patient was empirically started on meropenem and vancomycin on 10/21. Patient has history of ESBL UTI in the past. Speech evaluated 10/22, appreciate recommendation. 10/20 blood culture matt sensitive E. coli bacteremia 10/20 urine culture: E. coli pansensitive Repeat blood culture 10/22, no growth so far, follow-up final results. WBC downtrending, temperature better controlled Meropenem 10/21 and vancomycin 10/21 --> vancomycin dropped 10/22, Rocephin in place of meropenem 10/23 On midodrine at very low dose 10/22. Consider discontinuing once blood pressure improves with improving infection. Urology on board, no plan for intervention, appreciate recommendation. Maintain bond, OP uro f/u for voiding trial and continued care. #. KAITY -resolved Baseline creatinine around 1 Admitting creatinine of 2.2, likely prerenal from septic shock, resolved, follow BMP as needed #. Elevated troponin, likely demand ischemia Likely demand ischemia secondary to septic shock, troponin trending down. Patient with no chest pain. Continue to monitor over telemetry. #. Questionable GI bleed: Concern for coffee-ground emesis while the patient was in route by ambulance. Per Nursin home, the vomitus was brown. Hemooccult was positive in the ER. Admitting CTAP s/o ileus vs gastroenteritis, no SBO. Gi evaluated, on iv PPI BID. Hb stable. #. History of atrial fibrillation Patient on Eliquis, amiodarone and metoprolol at home Converted to A. fib RVR at 10:29 AM on 10/22/2021 -----> continues to be in afib Electrolytes, EKG, troponin sent 10/22 and reviewed. TSH normal. Monitor and replete electrolytes. Continue to monitor hemoglobin Low dose heparin drip 10/22, pt on iv ppi bid per GI. Cardiology on board. c/w amiodarone and metoprolol at increased dose per cardio, amio 200 mg TID from 10/23 and meto succ 25 mg BID. Likely will improve with improvement of his infection, continue to monitor over telemetry. #. 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 Monitor for volume overload. PE: On Eliquis at home, currently held. A. fib: On metoprolol and amiodarone, continue as able, watch for hypotension. Eliquis on hold. BPH, GERD, RLS, HLD and HTN: Resume home meds Acute ischemic right middle cerebral artery stroke, currently bedbound. Plavix on hold, resume when GI bleed resolved. #. Deep venous thrombosis prophylaxis: low dose heparin drip #. DNR/DNI. Admission and Anticipated Discharge Date Admission Date: October 21, 2021 Subjective Patient seen and examined at bedside as a follow-up of severe sepsis with shock possibly secondary to aspiration pneumonia versus UTI, and E.coli bacteremia. Patient was lying in bed, on 2 L nasal cannula oxygen, NAD, is lethargic, oriented x 1, left extremities with residual weakness. Pt on diet per speech recs. Per RN, patient is eating okay as of yesterday, BF not available by the time of exam, pt reports hungry. Patient denies any pain or discomfort.ROS limited due to patient's cognition status Physical Exam Physical Exam: GENERAL: Lethargic and oriented x self. NAD, on 2L NC O2. HEENT: No pallor, no icterus. Pupils equal, round and reactive to light. Oral mucosa moist. NECK: No JVD, no neck masses. HEART: S1 and S2 heard. irregular rate and rhythm. No murmur, no gallop. RESPIRATORY SYSTEM: Normal AP diameter. No accessory muscle use. No wheezing, no crackles ABDOMEN: Soft, bowel sounds present, nontender, no distention. CENTRAL NERVOUS SYSTEM: No facial droop. Speech is clear. Obeys simple commands. Left extremities w/ residual weakness/paralysis. Rt extremities at baseline. EXTREMITIES: no ble edema, no erythema seen. UC w/ yellow urine collection noted. Results & Data Results & Data ([facility]) Vital Signs (Past 12 Hours) Vital Signs Temp Pulse Resp BP Pulse Ox 10/25/21 15:10 36.6 C 100 H 16 94/72 L 92 10/25/21 14:56 99 H 10/25/21 11:10 36.6 C 93 H 20 103/65 97 10/25/21 10:30 99 H 10/25/21 07:00 37.2 C 97 H 18 104/70 96
[2021-10-25] MEDS: TAMSULOSIN HCL 0.4 MG CAP PO SCH (17:16)
[2021-10-25] MEDS: HEPARIN SODIUM/DEXTROSE 25,000 UNITS/500 ML BAG IV SCH (17:17)
[2021-10-25 20:46] LABS: Partial Thromboplastin Ratio 1.8
[2021-10-25 20:48] LABS: Partial Thromboplastin Time 49.3 Seconds (21.0-31.0)
[2021-10-26] MEDS: levETIRAcetam 500 MG in 0.9 % SODIUM CHLORIDE 100 ML IV SCH ×2 (05:24→17:20)
[2021-10-26 06:09] LABS: Potassium 3.5 mmol/L (3.5-5.1)
[2021-10-26 06:12] LABS: Partial Thromboplastin Ratio 1.8
[2021-10-26 06:50] LABS: Partial Thromboplastin Time 50.1 Seconds (21.0-31.0)
--- NOTE | 2021-10-26 07:45 | Cardiology Progress Note ---
Date of Service October 26, 2021 Assessment & Plan (1) Sepsis: (2) Elevated troponin: (3) Atrial fibrillation with RVR: (4) HFrEF (heart failure with reduced ejection fraction): (5) Ischemic heart disease: (6) CVA (cerebral vascular accident): (7) History of pulmonary embolism: Plan: Medically complex 71-year-old male. Currently being treated for sepsis (due to aspiration pneumonitis vs UTI as source). Carries a history of paroxysmal atrial fibrillation normally well controlled with amiodarone and metoprolol and anticoagulated on Eliquis. Recurrence of atrial fibrillation in the setting of acute illness and pressor use. Eliquis has been held due to questionable GI bleed, patient treated conservatively with IV Protonix and is now on heparin drip. Heart rates slowly improving, averaging in the 90 (atrial fib/flutter). Amiodarone has since been restarted. 1. As sepsis is treated heart rate should continue to improve. May spontaneously convert to sinus rhythm as clinical condition improves. Continue amiodarone 200 mg 3 times daily and metoprolol tartrate at 25 mg twice daily. Monitor closely for hypotension. Should BP remain stable there is room to increase beta pasquale. 2. Continue with IV heparin without interruption if possible. Risk vs benefit of halfway anticoagulation will need to be determined pending clinical course 3. Continue to follow renal function and electrolytes. Replete electrolytes for goal potassium of 4.0 and a magnesium of 2.0 Potassium of 3.5 this am- repleted by primary team. 4. Elevated troponin likely related to demand ischemia secondary to septic shock. Troponin level trending down. Patient without chest pain. Recommend continuing to monitor on telemetry. Case discussed with Dr. Yousif- will follow. Admission and Anticipated Discharge Date Admission Date: October 21, 2021 Supervising Physician Co-Signing Physician Notes Patient seen and examined. Telemetry reviewed. Patient remains in atrial fibrillation/flutter though rates trending towards better control. 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 Initially admitted due to sepsis secondary to aspiration pneumonitis versus UTI source. Patient required IV fluids and pressor support. During the use of pressors patient lapsed into atrial fibrillation-amiodarone and metoprolol was on hold. Amiodarone restarted on 10/22, increased to 200 mg 3 times daily on 10/23 Metoprolol tartrate 12.5 mg twice daily restarted on 10/23, increased to 25 mg twice daily on 10/24 Patient anticoagulated with a heparin drip. Tele: Atrial fibrillation/flutter 90s Chart and telemetry reviewed. Patient seen and examined at bedside. Upon entrance into the room patient resting in bed without acute cardiovascular complaints. Main concern regarding back and hip pain. Review of systems limited due to cognitive status. Review of Systems Review of Systems: Unobtainable due to cognitive status Physical Exam Constitutional: + frail appearing; no acute distress Neck: normal visual inspection Respiratory: normal respiratory effort; no cough Auscultation: + diminished lung sounds; no rales, no rhonchi and no wheezes Cardiovascular: Rate/Rhythm: + tachycardic and + irregularly irregular Heart Sounds: normal S1 and normal S2; no murmur Vessels: no JVD Gastrointestinal (Abdomen): normal bowel sounds, soft, nontender, no hepatosplenomegaly Skin: no rashes, warm and dry Neurologic: PERRL, EOMI, accommodation nl, no face palsy, no dysarthria + confused Speech / Cognition: + abnormal speech Psychiatric: Orientation: oriented to person; + not oriented to place and + not oriented to time Motor Behavior: n tremor Speech: normal rate/rhythm/volume of speech Results & Data ([facility]) Vital Signs (Past 12 Hours) Vital Signs Temp Pulse Resp BP Pulse Ox Pulse Ox 10/26/21 02:37 36.6 C 95 H 18 98/68 L 94 10/26/21 02:00 92 10/26/21 01:29 93 H 10/25/21 22:03 37.8 C H 93 H 18 97/74 L 94 Laboratory Results Coagulation 10/25/21 10/25/21 10/26/21 Range/Units 12:58 20:05 05:16 APTT 43.0 H 49.3 H* 50.1 H* (21.0-31.0) Seconds Comprehensive Metabolic Panel 10/26/21 Range/Units 05:16 Potassium 3.5 (3.5-5.1) mmol/L Intake and Output 10/25/21 10/26/21 10/26/21 22:59 06:59 14:59 Intake Total 251.534 / 976.434 265 / 976.434 334.6 / 334.6 Output Total 500 / 900 Balance 251.534 / 76.434 -235 / 76.434 334.6 / 334.6 Intake: IV 251.534 / 816.434 105 / 816.434 334.6 / 334.6 Heparin Sodium/Dextrose 25,000 146.534 / 336.434 334.6 / 334.6 units In 500 ml @ 1,400 UNITS/ HR 28 mls/hr IV .[id number] [facility] Rx #:[id number] levETIRAcetam 500 mg In 0.9 % 105 / 210 105 / 210 Sodium Chloride 100 ml @ 420 mls/hr IV Q12H [facility] Rx#:[id number] Oral 160 / 160 Output: Urine Amount (Catheter) 500 / 900 Campos/Indwelling 500 / 900 Other: Weight 76.8 kg Weight Measurement Method Built in [facility]
[2021-10-26] MEDS ORDERED: POTASSIUM CHLORIDE CRTAB 20 MEQ TABCR PO STA (08:25)
[2021-10-26] MEDS: AMIODARONE 200 MG TAB PO SCH ×3 (08:28→17:17)
[2021-10-26] MEDS: METOPROLOL SUCC 25MG EXT REL TAB PO SCH ×2 (08:28→20:53)
[2021-10-26] MEDS: MIDODRINE HCL 2.5 MG TAB PO SCH ×3 (08:34→17:18)
[2021-10-26] MEDS: cefTRIAXone SODIUM 2,000 MG in DEXTROSE 5% 50 ML IV SCH (08:34)
[2021-10-26] MEDS: ADVANCED PROBIOTIC 1250 MG CAPSULE PO SCH (08:35)
[2021-10-26] MEDS: ATORVASTATIN 40 MG TAB PO SCH (08:35)
[2021-10-26] MEDS: GABAPENTIN 100 MG CAP PO SCH ×3 (08:36→20:52)
[2021-10-26] MEDS: POT PHOSPHATE MONOBASIC W/ SOD TAB PO SCH ×4 (08:36→20:54)
[2021-10-26] MEDS: FLUoxetine HCL 10 MG CAP PO SCH (08:36)
[2021-10-26] MEDS: FINASTERIDE 5 MG TAB PO SCH (08:37)
[2021-10-26] MEDS: rOPINIRole HCL 0.25 MG TABLET PO SCH ×4 (08:37→20:55)
[2021-10-26] MEDS: MULTIVITAMIN TAB PO SCH (08:37)
[2021-10-26] MEDS: UMECLIDINIUM BROMIDE 62.5MCG/BLISTER 7 PUFFS/INHALER INH SCH (08:38)
[2021-10-26] MEDS: PANTOprazole 40 MG in SYRINGE 0 ML IV SCH ×2 (09:17→21:15)
[2021-10-26] MEDS: THIAMINE HCL 100 MG TAB PO SCH (09:19)
[2021-10-26] MEDS: CLINDAMYCIN/D5W 600 MG/50 ML BAG IV SCH ×2 (09:20→17:17)
[2021-10-26 11:49] LABS: Partial Thromboplastin Ratio 1.8
[2021-10-26 12:16] LABS: Partial Thromboplastin Time 49.7 Seconds (21.0-31.0)
[2021-10-26] MEDS: HEPARIN SODIUM/DEXTROSE 25,000 UNITS/500 ML BAG IV SCH (12:32)
--- NOTE | 2021-10-26 14:07 | XRay Report ---
XR chest 1V portable CLINICAL HISTORY: f/u COMPARISON STUDY: Chest radiograph October 20, 2021. Chest CT October 21, 2021. FINDINGS: There is no pneumothorax. There is a possible small left pleural effusion. Dense left basil ar airspace opacity with volume loss has progressed. Severe emphysema is better depicted on prior CT. Cardiomegaly is again noted. There is extensive coronary artery calcification. IMPRESSION: 1. Increase in left basilar airspace opacity with volume loss. This could reflect pneumonia or atele ctasis. Radiographic follow-up to ensure resolution is recommended. 2. Possible small left pleural effusion. 3. Severe emphysema. ACT 112: Negative or not required by law. Electronically signed by: Bigg Rudolph M.D. 10/26/2021 2:05 PM
[2021-10-26] MEDS: TAMSULOSIN HCL 0.4 MG CAP PO SCH (17:16)
--- NOTE | 2021-10-26 17:33 | Hospitalist Progress Note ---
Date of Service October 26, 2021 Assessment & Plan (1) Severe sepsis: Plan: 71-year-old male w/ PMH of hyperlipidemia, COPD, history of masses in upper lobe of left lung, history of CVA, left hemiplegia mostly bedbound, history of dysarthria on mechanical soft diet and nectar thick liquids as per the custodial, history of atrial fibrillation on eliquis, history of systolic CHF, history of pulmonary embolism, depression, pulmonary hypertension, hypertension, protein calorie malnutrition, history of GI bleed, history of tubular adenoma of small intestine, diverticulosis, BPH, kidney stones, osteoporosis, contraction of the muscle of the left lower extremity, partial complex seizures, CAD status post stent placement, history of tobacco abuse, currently at [facility], mostly bedbound, comes 10/21 because the patient was vomiting since 1 day SOUND RECORDIST x several episodes. His abdominal x-ray showed ileus. As he was not getting better, he was not feeling good, he was transferred to the hospital. He was hypoxic. Initially he was only 85%, he was placed on high-flow oxygen. Initial BP was soft, and also spiked temperature on the night of presentation. He is being managed for the following: #. Septic shock requiring pressors : off of pressors 2:30 AM on 10/22/2021. #. Severe sepsis POA / below #. Aspiration pneumonia - had vomiting SOUND RECORDIST. Admitting CXR reviewed. Admitting Chest CT w/ centrilobular emphysematous changes throughout both lungs. LLL pna. #. UTI #. Metabolic encephalopathy: Per custodial, he is generally oriented.Per family, he doesn't usu. eat much, just picks at things. Currently lethargic, Oriented x 1. Eating at basline. Patient presented with severe sepsis likely secondary to aspiration pneumonitis versus UTI After admission, blood pressure dropped and was treated w/ IVF and in the ICU with pressors, off of pressors 2:30 AM on 10/22/2021. Patient was empirically started on meropenem and vancomycin on 10/21. Patient has history of ESBL UTI in the past. Speech evaluated 10/22, appreciate recommendation. 10/20 blood culture matt sensitive E. coli bacteremia 10/20 urine culture: E. coli pansensitive Repeat blood culture 10/22, no growth so far, follow-up final results. WBC downtrending, temperature low grade fever on and off Meropenem 10/21 and vancomycin 10/21 --> vancomycin dropped 10/22, Rocephin in place of meropenem 10/23, add Clinda 10/26 On midodrine at very low dose 10/22. Consider discontinuing once blood pressure improves with improving infection. Urology on board, no plan for intervention, appreciate recommendation. Maintain bond, OP uro f/u for voiding trial and continued care. #. KAITY -resolved Baseline creatinine around 1 Admitting creatinine of 2.2, likely prerenal from septic shock, resolved, follow BMP as needed #. Elevated troponin, likely demand ischemia Likely demand ischemia secondary to septic shock, troponin trending down. Patient with no chest pain. Continue to monitor over telemetry. #. Questionable GI bleed: Concern for coffee-ground emesis while the patient was in route by ambulance. Per Nursin home, the vomitus was brown. Hemooccult was positive in the ER. Admitting CTAP s/o ileus vs gastroenteritis, no SBO. Gi evaluated, on iv PPI BID. Hb stable. #. History of atrial fibrillation Patient on Eliquis, amiodarone and metoprolol at home Converted to A. fib RVR at 10:29 AM on 10/22/2021 -----> continues to be in afib Electrolytes, EKG, troponin sent 10/22 and reviewed. TSH normal. Monitor and replete electrolytes. Continue to monitor hemoglobin Low dose heparin drip 10/22, pt on iv ppi bid per GI. Cardiology on board. c/w amiodarone and metoprolol at increased dose per cardio, amio 200 mg TID from 10/23 and meto succ 25 mg BID. Likely will improve with improvement of his infection, continue to monitor over telemetry. #. 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 Monitor for volume overload. PE: On Eliquis at home, currently held. A. fib: On metoprolol and amiodarone, continue as able, watch for hypotension. Eliquis on hold. BPH, GERD, RLS, HLD and HTN: Resume home meds Acute ischemic right middle cerebral artery stroke, currently bedbound. Plavix on hold, resume when GI bleed resolved. #. Deep venous thrombosis prophylaxis: low dose heparin drip #. DNR/DNI. Admission and Anticipated Discharge Date Admission Date: October 21, 2021 Subjective Patient seen and examined at bedside as a follow-up of severe sepsis with shock possibly secondary to aspiration pneumonia versus UTI, and E.coli bacteremia. Patient was lying in bed, on RA, NAD, is lethargic, oriented x 2, left extremities with residual weakness. Pt on diet per speech recs. Per RN, patient is eating okay, have some loose stool. Patient denies any pain or discomfort.Pt denies cough or headache, Pt report chronic low back pain, tylenol ordered. Physical Exam Physical Exam: GENERAL: Lethargic and oriented x self. NAD, on RA. HEENT: No pallor, no icterus. Pupils equal, round and reactive to light. Oral mucosa moist. NECK: No JVD, no neck masses. HEART: S1 and S2 heard. irregular rate and rhythm. No murmur, no gallop. RESPIRATORY SYSTEM: Normal AP diameter. No accessory muscle use. No wheezing, no crackles ABDOMEN: Soft, bowel sounds present, nontender, no distention. CENTRAL NERVOUS SYSTEM: No facial droop. Speech is clear. Obeys simple commands. Left extremities w/ residual weakness/paralysis. Rt extremities at baseline. EXTREMITIES: no ble edema, no erythema seen. UC w/ yellow urine collection noted. Results & Data Results & Data ([facility]) Vital Signs (Past 12 Hours) Vital Signs Temp Pulse Resp BP Pulse Ox 10/26/21 15:44 36.7 C 74 18 102/74 97 10/26/21 15:42 97 H 10/26/21 12:00 36.6 C 87 20 95/61 L 98 10/26/21 10:19 91 H 10/26/21 08:00 36.5 C 89 16 97/62 L
[2021-10-26] MEDS ORDERED: ACETAMINOPHEN 325 MG TAB PO PRN (18:01)
[2021-10-27] MEDS: CLINDAMYCIN/D5W 600 MG/50 ML BAG IV SCH ×3 (00:28→17:39)
[2021-10-27] MEDS: levETIRAcetam 500 MG in 0.9 % SODIUM CHLORIDE 100 ML IV SCH ×2 (05:38→17:34)
[2021-10-27] MEDS: HEPARIN SODIUM/DEXTROSE 25,000 UNITS/500 ML BAG IV SCH (05:45)
[2021-10-27 06:39] LABS: Hemoglobin 10.8 g/dL (14.0-18.0); Mean Corpuscular Hemoglobin 32.1 pg (25-34); Mean Corpuscular Hgb Conc 33.8 g/dL (32-36); Mean Corpuscular Volume 95.2 fL (80-100); Platelet Count 130 K/uL (130-400); RDW Coefficient of Variation 14.4 % (11.5-14.5); RDW Standard Deviation 50.2 fL (36.4-46.3); Red Blood Count 3.36 M/uL (4.7-6.1); White Blood Count 6.36 K/uL (4.8-10.8)
[2021-10-27 06:59] LABS: Partial Thromboplastin Ratio 2.1
[2021-10-27 07:04] LABS: Partial Thromboplastin Time 57.5 Seconds (21.0-31.0)
[2021-10-27 07:07] LABS: BUN Creatinine Ratio 12.5 (10-20); Calcium 7.8 mg/dl (8.5-10.1); Creatinine Clr Calc Pharmacy 73.3 ml/min; Est GFR (African American) 90.5 ml/min; Est GFR (Non-African American) 78.1 ml/min; Magnesium 1.8 mg/dl (1.7-2.4); Phosphorus 3.3 mg/dl (2.5-4.9); Potassium 3.4 mmol/L (3.5-5.1)
[2021-10-27] MEDS: PANTOprazole 40 MG in SYRINGE 0 ML IV SCH (08:15)
[2021-10-27] MEDS: THIAMINE HCL 100 MG TAB PO SCH (08:19)
[2021-10-27] MEDS: ATORVASTATIN 40 MG TAB PO SCH (08:19)
[2021-10-27] MEDS: FLUoxetine HCL 10 MG CAP PO SCH (08:19)
[2021-10-27] MEDS: MULTIVITAMIN TAB PO SCH (08:19)
[2021-10-27] MEDS: rOPINIRole HCL 0.25 MG TABLET PO SCH ×3 (08:19→17:42)
[2021-10-27] MEDS: AMIODARONE 200 MG TAB PO SCH ×3 (08:19→17:39)
[2021-10-27] MEDS: MIDODRINE HCL 2.5 MG TAB PO SCH ×3 (08:19→17:41)
[2021-10-27] MEDS: ADVANCED PROBIOTIC 1250 MG CAPSULE PO SCH (08:19)
[2021-10-27] MEDS: POT PHOSPHATE MONOBASIC W/ SOD TAB PO SCH ×3 (08:20→17:41)
[2021-10-27] MEDS: cefTRIAXone SODIUM 2,000 MG in DEXTROSE 5% 50 ML IV SCH (08:25)
[2021-10-27] MEDS: POTASSIUM CHLORIDE CRTAB 20 MEQ TABCR PO SCH ×2 (08:25→09:01)
[2021-10-27] MEDS: GABAPENTIN 100 MG CAP PO SCH ×2 (08:26→13:56)
[2021-10-27] MEDS: METOPROLOL SUCC 25MG EXT REL TAB PO SCH (08:26)
[2021-10-27] MEDS: UMECLIDINIUM BROMIDE 62.5MCG/BLISTER 7 PUFFS/INHALER INH SCH (08:27)
[2021-10-27] MEDS: FINASTERIDE 5 MG TAB PO SCH (08:27)
--- NOTE | 2021-10-27 16:07 | Discharge Summary ---
Date of Service October 27, 2021 Admission HPI Per Admitting Provider DATE OF ADMISSION: 10/21/2021. CHIEF COMPLAINT: Fever, sepsis. HISTORY: This is a 71-year-old male with past medical history significant for hyperlipidemia, COPD, history of masses in upper lobe of left lung, history of CVA, left hemiplegia mostly bedbound, history of dysarthria on mechanical soft diet and nectar thick liquids as per the senior living, history of atrial fibrillation, history of systolic CHF, history of pulmonary embolism, depression, pulmonary hypertension, hypertension, protein calorie malnutrition, history of GI bleed, history of tubular adenoma of small intestine, diverticulosis, BPH, kidney stones, osteoporosis, contraction of the muscle of the left lower extremity, partial complex seizures, CAD status post stent placement, history of tobacco abuse, currently at [facility], mostly bedbound, comes because the patient was vomiting since yesterday several episodes. His abdominal x-ray showed ileus. As he was not getting better, he was not feeling good, he was transferred to the hospital. He was hypoxic. Initially he was only 85%, he was placed on high-flow oxygen. Currently, saturating okay. Initial blood pressure was soft, but later SBP was 75, spiking temperature to 38. White count is 25, creatinine is 2.2. Urinalysis, +4 bacteria. Occult blood is positive. Rapid COVID test negative. Chest x-ray, possible aspiration pneumonitis, question of coffee ground emesis as per the ER and started on Protonix drip but as per the senior living the vomitus was brown but his Hemoccult was positive in the ER. Hemoglobin was stable. The patient is not answering much questions. As per the senior living generally he is oriented. Recently, no other complaints as per senior living, could not get much history. The patient is DNR. Discussed with the , patient confirms that the patient is a DNR, but she is okay with pressors. ALLERGIES: No known drug allergies. MEDICAL HISTORY: As mentioned above. PAST SURGICAL HISTORY: Cardiac stent placement, colonoscopy, cystoscopy, EGD. MEDICATIONS: The patient is on Tylenol 650 mg p.o. q. 4 hours p.r.n., amiodarone 200 mg p.o. a.m., Lipitor 80 mg p.o. daily, Dulcolax 10 mg per rectal daily p.r.n., calcium carbonate 500 mg p.o. b.i.d., vitamin D 25 mcg p.o. a.m., Plavix 75 mg p.o. a.m., Colace 100 mg p.o. daily, Eliquis 5 mg p.o. b.i.d., ferrous sulfate 325 mg p.o. b.i.d., Proscar 5 mg p.o. a.m., fluoxetine 10 mg p.o. a.m., Gabapentin 100 mg p.o. t.i.d., Keppra 500 mg p.o. b.i.d., lisinopril 2.5 mg p.o. a.m., metoprolol tartrate 12.5 mg p.o. a.m., multivitamins 1 tablet p.o. a.m., Zofran 4 mg p.o. q. 6 hours p.r.n., Protonix 40 mg p.o. b.i.d., Neutra-Phos 1 tablet p.o. b.i.d., probiotic 1 tablet p.o. a.m., Revefenacin nebulization daily, Ropinirole 0.5 mg p.o. b.i.d., Flomax 0.4 mg p.o. daily. FAMILY HISTORY: Significant for no family history on file. SOCIAL HISTORY: Currently resident of [facility], former smoker. No alcohol. REVIEW OF SYSTEMS: Unobtainable at this time. Admission Exam Per Admitting Provider GENERAL: The patient is of moderate build, not in acute distress. VITAL SIGNS: Temperature T-max 38, pulse 90, respiratory rate 24, blood pressure 75/33, oxygen 96% on 40 liters of high flow. HEENT: Pupils equal, round and reactive to light. Oral mucosa dry. NECK: No JVD, no neck masses. CARDIOVASCULAR: S1 and S2 heard. Regular rate and rhythm. No murmur, no gallop. RESPIRATORY SYSTEM: Normal AP diameter. No accessory muscle use. No wheezing, no crackles. ABDOMEN: Soft, bowel sounds sluggish. Mildly tender. No distention. CENTRAL NERVOUS SYSTEM: Alert and awake, but not oriented, not obeying simple commands. No facial droop seen. EXTREMITIES: No edema, no erythema. Principal Diagnosis E Coli bacteremia Likely aspiration pneumonia UTI KAITY - resolved Metabolic encephalopathy - resolved Discharge Exam GENERAL: Lethargic and oriented x 2. NAD, on RA. HEENT: No pallor, no icterus. Pupils equal, round and reactive to light. Oral mucosa moist. NECK: No JVD, no neck masses. HEART: S1 and S2 heard. irregular rate and rhythm. No murmur, no gallop. RESPIRATORY SYSTEM: Normal AP diameter. No accessory muscle use. No wheezing, no crackles ABDOMEN: Soft, bowel sounds present, nontender, no distention. CENTRAL NERVOUS SYSTEM: No facial droop. Speech is clear. Obeys simple commands. Left extremities w/ residual weakness/paralysis. Rt extremities at baseline. EXTREMITIES: no ble edema, no erythema seen. UC w/ yellow urine collection noted. Discharge Data Allergies Allergy/AdvReac Type Severity Reaction Status Date / Time No Known Allergies Allergy Verified 07/12/21 10:52 Consultations 10/20/21 22:15 ED Decision to Admit Stat 10/21/21 02:18 Consult Child Nutrition Manager Routine 10/21/21 05:32 Consult Urology Routine 10/21/21 08:00 Consult Gastroenterology Routine 10/22/21 16:26 Consult Cardiology Routine Ordered Studies 10/21/21 01:26 CT abd pelvis wo con Urgent CT chest diagnostic wo con Urgent 10/22/21 11:30 FL video swallow Routine 10/22/21 18:10 CT head/brain wo con Routine Hospital Course (1) Severe sepsis: 71-year-old male w/ PMH of hyperlipidemia, COPD, history of masses in upper lobe of left lung, history of CVA, left hemiplegia mostly bedbound, history of dysarthria on mechanical soft diet and nectar thick liquids as per the senior living, history of atrial fibrillation on eliquis, history of systolic CHF, history of pulmonary embolism, depression, pulmonary hypertension, hyper tension, protein calorie malnutrition, history of GI bleed, history of tubular adenoma of small intestine, diverticulosis, BPH, kidney stones, osteoporosis, contraction of the muscle of the left lower extremity, partial complex seizures, CAD status post stent placement, history of tobacco abuse, currently at [facility], mostly bedbound, comes 10/21 because 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 His abdominal x-ray showed ileus. As he was not getting better, he was not feeling good, he was transferred to the hospital. He was hypoxic. Initially he was only 85%, he was placed on high-flow oxygen. Initial BP was soft, and also spiked temperature on the night of presentation. He was managed for the following: #. Septic shock requiring pressors : off of pressors 2:30 AM on 10/22/2021. #. Severe sepsis POA / below #. 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 Admitting CXR reviewed. Admitting C hest CT w/ centrilobular emphysematous changes throughout both lungs. LLL pna. #. UTI #. Metabolic encephalopathy: Per senior living, he is generally oriented.Per family, he doesn't usu. eat much, just picks at things. Currently alert and oriented x2. Eating at baseline. Patient presented with severe sepsis likely secondary to aspiration pneumonitis versus UTI After admission, blood pressure dropped and was treated w/ IVF and in the ICU with pressors, off of pressors 2:30 AM on 10/22/2021. Patient was empirically started on meropenem and vancomycin on 10/21. Patient has history of ESBL UTI in the past. Speech evaluated 10/22, appreciate recommendation. 10/20 blood culture matt sensitive E. coli bacteremia 10/20 urine culture: E. coli pansensitive Repeat blood culture 10/22, no growth WBC nl, afebrile Meropenem 10/21 and vancomycin 10/21 --> vancomycin dropped 10/22, Rocephin in place of meropenem 10/23, add Clinda 10/26 --> On Augmentin upon DC for 9 more days, continue w/ probiotic as well. On midodrine at very low dose 10/22. Lisinopril DCd. Will need OP eval by PCP for adjusting/resuming BP meds/and discontinuing midodrine. Urology evaluated, no plan for intervention, appreciate recommendation. Maintain bond, OP uro f/u for voiding trial and continued care. #. KAITY -resolved Baseline creatinine around 1 Admitting creatinine of 2.2, likely prerenal from septic shock, resolved, follow BMP as needed #. Elevated troponin, likely demand ischemia Likely demand ischemia secondary to septic shock, troponin trending down. Patient with no chest pain. Continue to monitor over telemetry. #. Questionable GI bleed: Concern for coffee-ground emesis while the patient was in route by ambulance. Per Nursin home, the vomitus was brown. Hemooccult was positive in the ER. Admitting CTAP s/o ileus vs gastroenteritis, no SBO. Gi evaluated, on iv PPI BID. Hb stable. ---> on pO pantoprazole upon DC, OP GI f/u. #. History of atrial fibrillation Patient on Eliquis, amiodarone and metoprolol at home Converted to A. fib RVR at 10:29 AM on 10/22/2021 -----> continues to be in afib Electrolytes, EKG, troponin sent 10/22 and reviewed. TSH normal. Monitor and replete electrolytes. Continue to monitor hemoglobin Low dose heparin drip 10/22, pt on iv ppi bid per GI. Cardiology on board. c/w amiodarone and metoprolol at increased dose per cardio, amio 200 mg TID from 10/23 and meto succ 25 mg BID. Likely will improve with improvement of his infection, continue to monitor over telemetry. #. 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 Monitor for volume ov erload. PE: On Eliquis at home A. fib: On metoprolol and amiodarone BPH, GERD, RLS, HLD and HTN: Resume home meds Acute ischemic right middle cerebral artery stroke, currently bedbound. resume plavix and eliquis upon DC. #. Deep venous thrombosis prophylaxis: low dose heparin drip while inpatient. #. DNR/DNI. Pt's given a phone call for general update and discharge instruction, left voicemail w/ message to call back and ask for Dr. Felton. Pt being discharged to SNF w/ following instructions: Follow-up with your primary care physician within a week time. For your gram-negative bacteremia and UTI due to pansensitive E. coli, you were on IV antibiotic from 10/21 while in hospital up to 10/27, you will be discharged on oral antibiotic to complete 14 days course from your negative blood culture on 10/22. The same antibiotic Augmentin will also cover your likely aspiration pneumonia. Continue to take probiotic. Get your blood work CBC and CMP done in 1 week time and have the results forwarded to your primary care physician. Your Eliquis for your history of atrial fibrillation, PE and stroke, will be resumed upon discharge. You will need to have discussion with your primary care physician for risks and benefits of Eliquis down the road if in the future GI bleeding recurs. Your hemoglobin has been stable while on anticoagulation while in hospital. There was concern of GI bleed initially at the point of admission. Hence you are being discharged on pantoprazole. You will likely need outpatient GI doctor follow-up. Cardiology evaluated you while in patient for Afib RVR and your amiodarone and metorprolol dose has been adjusted. F/U with you PCP, it will need further eval and possibly adjusted down as Outpatient. Your Blood pressure were low, hence lisinopril stopped and you were started on a small dose of midodrine, further evaluation/management by PCP as outpatient. Maintain Bond upon Discharge. F/u w/ Urologoy doctor as outpatient for voiding trial and continued care. Take your medications as prescribed. Total Time Total Time Spent Total Time Spent (In Minutes): 45 Discharge Plan Discharge Items Patient Disposition: Transfer Correction Fac Reason For Visit: VOMITING, SEPSIS Discharge Diagnosis: E Coli bacteremia Likely aspiration pneumonia UTI KAITY - resolved Metabolic encephalopathy - resolved Activity: Resume your previous activity Non-emergency contact: Primary Care Provider Call non-emergency contact if: you have any medication questions, your symptoms worsen and your temperature is above 101 Follow-up/Referrals: Yanni Ferreira [Primary Care Provider] - Diet: Regular Diet Texture: Dental soft (bite-sized) Diet Comment: Minced and moist dietary consistency Addtl Attending Provider Instructions: Follow-up with your primary care physician within a week time. For your gram-negative bacteremia and UTI due to pansensitive E. coli, you were on IV antibiotic from 10/21 while in hospital up to 10/27, you will be discharged on oral antibiotic to complete 14 days course from your negative blood culture on 10/22. The same antibiotic Augmentin will also cover your likely aspiration pneumonia. Continue to take probiotic. Get your blood work CBC and CMP done in 1 week time and have the results forwarded to your primary care physician. Your Eliquis for your history of atrial fibrillation, PE and stroke, will be resumed upon discharge. You will need to have discussion with your primary care physician for risks and benefits of Eliquis down the road if in the future GI bleeding recurs. Your hemoglobin has been stable while on anticoagulation while in hospital. There was concern of GI bleed initially at the point of admission. Hence you are being discharged on pantoprazole. You will likely need outpatient GI doctor follow-up. Cardiology evaluated you while in patient for Afib RVR and your amiodarone and metorprolol dose has been adjusted. F/U with you PCP, it will need further eval and possibly adjusted down as Outpatient. Your Blood pressure were low, hence lisinopril stopped and you were started on a small dose of midodrine, further evaluation/management by PCP as outpatient. Maintain Bond upon Discharge. F/u w/ Urologoy doctor as outpatient for voiding trial and continued care. Take your medications as prescribed. Pending Studies at Discharge: No Stand-Alone Forms: My [facility] Skilled Items Patient informed of condition?: No DNR: Yes Discharge Level of Care: Skilled Communicable Disease: No Discharge Prognosis: Stable Lines: None Urinary Catheter: Yes Medications and DC Order Prescriptions: New midodrine 2.5 mg Tablet 2.5 mg PO TID@0800,1200,1700 30 Days Qty: 90 RF: 0 amiodarone 200 mg Tablet 200 mg PO TIDM Qty: 90 RF: 0 metoprolol succinate 25 mg Tablet Extended Release 24 Hr 25 mg PO BID Qty: 60 RF: 0 amoxicillin-pot clavulanate 875-125 mg tablet 1 tab PO BID 9 Days Qty: 18 RF: 0 Continued Yupelri 175 mcg/3 mL solution for nebulization 175 mcg inhalation DAILY Qty: 90 RF: 5 multivitamin [Daily Multi-Vitamin] tablet 1 tab PO QAM RF: 0 acetaminophen [Tylenol] 325 mg Tablet 650 mg PO Q4H PRN (Reason: TEMP >100/PAIN) RF: 0 tamsulosin [Flomax] 0.4 mg capsule 0.4 mg PO QDD RF: 0 ropinirole 0.5 mg tablet 0.5 mg PO QID RF: 0 gabapentin [Neurontin] 100 mg capsule 100 mg PO TID RF: 0 finasteride [Proscar] 5 mg tablet 5 mg PO QAM RF: 0 cholecalciferol (vitamin D3) [Vitamin D3] 25 mcg (1,000 unit) capsule 25 mcg PO QAM RF: 0 Eliquis 5 mg tablet 5 mg PO BID RF: 0 atorvastatin [Lipitor] 80 mg tablet 80 mg PO QAM RF: 0 clopidogrel [Plavix] 75 mg tablet 75 mg PO QAM RF: 0 ondansetron 4 mg Tablet,Disintegrating 4 mg PO Q6H PRN (Reason: Nausea) RF: 0 pantoprazole 40 mg Tablet,Delayed Release (Dr/Ec) 40 mg PO BID Qty: 60 RF: 1 Probiotic 10 billion cell Capsule 10,000 mmu cells PO QAM 14 Days Qty: 14 RF: 0 calcium carbonate [Calcium Antacid] 200 mg calcium (500 mg) tablet,chewable 500 mg PO BID RF: 0 ferrous sulfate 325 mg (65 mg iron) Tablet 325 mg PO BID RF: 0 Phospha 250 Neutral 250 mg Tablet 1 tab PO QID RF: 0 fluoxetine 10 mg Capsule 10 mg PO QAM RF: 0 levetiracetam [Keppra] 500 mg Tablet 500 mg PO BID Qty: 60 RF: 0 bisacodyl [Dulcolax (bisacodyl)] 10 mg Suppository 10 mg OK DAILY PRN (Reason: Constipation) RF: 0 docusate sodium [Colace] 100 mg capsule 100 mg PO QAM RF: 0 Discontinued metoprolol tartrate 25 mg tablet 12.5 mg PO QAM RF: 0 amiodarone 200 mg PO QAM RF: 0 lisinopril 2.5 mg Tablet 2.5 mg PO QAM RF: 0 Discharge Orders: Discharge Order (Routine); Ordered 10/27/21 Ordered By: Inocente Felton Admission Data Admit Date/Time: 10/21/21 01:09 Attending Provider: Inocente eFlton Admit Provider: Suleman Yepez Primary Care Provider: Yanni Ferreira Other Providers: Suleman Yepez ; Earle Thornton ; Jeyson Solano ; Jia Blackmon ; Flo Mcginnis
[2021-10-27] MEDS: TAMSULOSIN HCL 0.4 MG CAP PO SCH (17:38)
== END 2021-10-27 18:20 | DRG 871 ==
LOC: ED 19:49 → 2E 10-21 01:09 → SUATTDRO 10-21 01:09 → 2E 10-21 01:44